=== PATIENT | female | born 1995 | race Caucasian/White ===

== ENCOUNTER → 2017-09-24 16:45 | Outpatient (REF) | payer MEDICAID, SELFPAY ==
[2017-09-24 18:14] LABS: Free T4 (Free Thyroxine) 1.02 ng/dl (0.76-1.46); Thyroid Stimulating Hormone 1.72 uIU/ml (0.358-3.740)
== END ==
LOC: LAB 16:45
PROVIDERS: Visit Provider Nurse Practitioner Family
DX: R53.83 Other fatigue (principal)
CPT/HCPCS: 84439; 84443

== ENCOUNTER 2017-10-09 05:29 | Emergency (ER) | payer MEDICAID, SELFPAY ==
[2017-10-09 05:38] VITALS: BP 128/70; PULSE 110; RESP 20; TEMP 37; O2SAT 98; BMI 35.0
--- NOTE | 2017-10-09 05:59 | HMH.EDBACK ---
ED Disposition Clinical Impression: Renal colic on left side Disposition: Home, Self-Care Condition on Discharge: Good Instructions: DI for Kidney Stones Additional Instructions: fluids and see pcp next week for follow up Referrals: Aman Tapia APRN [Primary Care Provider] - - Critical Care Critical Care Time: No Attestation: On 10/09/17, the high probability of a clinically significant, sudden or life threatening deterioration of the following system(s) required my full and direct attention, intervention and personal management. The time I documented below is in addition to time spent performing reported procedures but includes the following listed in this critical care notation. Medical Decision Making - Medical Records Medical records reviewed: Yes: I reviewed the patient's medical records. Vital Signs: 10/09/17 05:38 Temperature 98.6 F Temperature Source Oral Pulse Rate [Right Brachial] 110 H Respiratory Rate 20 Blood Pressure [Right Arm] 128/70 Blood Pressure Mean [Right Arm] 89 02 Sat by Pulse Oximetry 98 Oxygen Delivery Method Room Air - Lab Data Lab results reviewed: Yes: I reviewed the patient's lab results. Lab Results 10/09/17 06:00: Urine HCG, Qual Negative 10/09/17 06:03: Urine Color Yellow, Urine Appearance Cloudy, Urine pH 6.0, Ur Specific [place] 1.015, Urine Protein Trace, Urine Glucose (UA) Negative, Urine Ketones Negative, Urine Blood 3+, Urine Nitrate Negative, Urine Bilirubin Negative, Urine Urobilinogen 0.2, Ur Leukocyte Esterase Negative, Urine RBC 5-10, Urine WBC 3-5, Ur Squamous Epith Cells 10-20, Urine Bacteria 1+ 10/09/17 06:10: WBC 9.2, RBC 4.20, Hgb 11.5 L, Hct 36.4 L, MCV 86.7, MCH 27.4, MCHC 31.6 L, RDW 14.6, Plt Count 301, MPV 8.4, Neut % (Auto) 68.9, Lymph % (Auto) 22.8, [place] % (Auto) 6.0, Eos % (Auto) 1.9, Baso % (Auto) 0.4, Neut # (Auto) 6.4, Lymph # (Auto) 2.1, [place] # (Auto) 0.6, Eos # (Auto) 0.2, Baso # (Auto) 0.0 10/09/17 06:10: ESR 21 H 10/09/17 06:10: Sodium 138, Potassium 3.8, Chloride 105, Carbon Dioxide 24, Anion Gap 12.8, BUN 11, Creatinine 0.83, Estimated Creat Clear 151, Estimated GFR 86, Est GFR ( Amer) 104, Glucose 97, Calcium 8.6, Total Bilirubin 0.3, AST 10 L, ALT 23, Alkaline Phosphatase 71, C-Reactive Protein < 0.2, Total Protein 7.1, Albumin 3.6, Globulin 3.5 H, Albumin/Globulin Ratio 1.0 L Result diagrams: 10/09/17 06:10 10/09/17 06:10 Orders (Tests/Meds): ORDERS Category Date Time Status CT abdomen pelvis wo con Stat Cat Scan 10/09/17 06:03 Taken - CT Data CT Scan: Abdomen, Pelvis Time Received: 07:[address] Reviewed: Yes: I have viewed the radiologist's interpretation Preliminary Findings: Abnormal (2 mm stone ) - Aram Inquiry Pt receiving controlled substance: No [facility] History I have reviewed the patient's past medical history: Yes Medical History: Reports:: Seizures Amputation: No Fractures: No - *Social History Smoking Status: Current every day smoker Tobacco Type: cigarettes # Packs/Day (cigarettes): 1 Alcohol Intake: never Substance Use Type: denies use - Psychiatric History Expresses thoughts of harming self/others: None Suicide Plan Description: No Plan *Family Hx:: Hypertension, Diabetes, Heart Attack, Cancer ROS Obtained: Yes All systems reviewed & no additional complaints - Constitutional Constitutional: Denies fever(s) - Eyes Eyes: Denies change in vision - ENT Ears, Nose, Mouth, and Throat: Denies sore throat - Cardiovascular Cardiovascular: Denies chest pain at rest - Respiratory Respiratory: No cough - Gastrointestinal Gastrointestingal: Reports: nausea. Denies: abdominal pain - Genitourinary Female Genitourinary: Denies abnormal vaginal bleeding, Reports flank pain, Denies heavy periods - Musculoskeletal Musculoskeletal: Denies joint pain, Reports limited range of motion, Reports radiating pain into limb - Neurologic Neurologic: Denies seizure-like activity [facility]
--- NOTE | 2017-10-09 06:03 | CT_ITS ---
CT abdomen pelvis wo con CLINICAL INDICATION: Left flank pain ITS.REASON: flank pain ORDERING PHYSICIAN: Ananth Cornejo MD PATIENT AGE: 22 years COMPARISON: 03/03/2017 TECHNIQUE: Axial images obtained with sagittal and coronal reformats. PROCEDURE: Oral Contrast: None IV Contrast: None . FINDINGS: Lung bases are clear. Prior cholecystectomy without dilatation. The liver, spleen, adrenal glands, and pancreas has an unremarkable unenhanced appearance. There is mild left hydronephrosis and hydroureter. No renal calculi are evident. There is a 2 mm calcific density in the left pelvic region which was not present on previous exam consistent with a ureterovesical junction stone. Unremarkable appendix. No evidence of diverticulitis, intestinal obstruction, or free air. No abdominal or pelvic mass or abnormal fluid collection. Right ovary is prominent at 4.9 x 2.3 cm and may be better evaluated with ultrasound clinically warranted. No acute bony anomalies. IMPRESSION: 1. 2-mm left ureterovesical junction stone with mild left hydronephrosis and ureterectasis 2. Mildly prominent right ovary. 3. Otherwise negative CT abdomen and pelvis without contrast
--- NOTE | 2017-10-09 06:04 | ED_ITS ---
ED Disposition Clinical Impression: Renal colic on left side Disposition: Home, Self-Care Condition on Discharge: Good Instructions: DI for Kidney Stones Additional Instructions: fluids and see pcp next week for follow up Referrals: Aman Tapia APRN [Primary Care Provider] - - Critical Care Critical Care Time: No Attestation: On 10/09/17, the high probability of a clinically significant, sudden or life threatening deterioration of the following system(s) required my full and direct attention, intervention and personal management. The time I documented below is in addition to time spent performing reported procedures but includes the following listed in this critical care notation. Medical Decision Making - Medical Records Medical records reviewed: Yes: I reviewed the patient's medical records. Vital Signs: 10/09/17 05:38 Temperature 98.6 F Temperature Source Oral Pulse Rate [Right Brachial] 110 H Respiratory Rate 20 Blood Pressure [Right Arm] 128/70 Blood Pressure Mean [Right Arm] 89 02 Sat by Pulse Oximetry 98 Oxygen Delivery Method Room Air - Lab Data Lab results reviewed: Yes: I reviewed the patient's lab results. Lab Results 10/09/17 06:00: Urine HCG, Qual Negative 10/09/17 06:03: Urine Color Yellow, Urine Appearance Cloudy, Urine pH 6.0, Ur Specific [place] 1.015, Urine Protein Trace, Urine Glucose (UA) Negative, Urine Ketones Negative, Urine Blood 3+, Urine Nitrate Negative, Urine Bilirubin Negative, Urine Urobilinogen 0.2, Ur Leukocyte Esterase Negative, Urine RBC 5-10 , Urine WBC 3-5, Ur Squamous Epith Cells 10-20, Urine Bacteria 1+ 10/09/17 06:10: WBC 9.2, RBC 4.20, Hgb 11.5 L, Hct 36.4 L, MCV 86.7, MCH 27.4, MCHC 31.6 L, RDW 14.6, Plt Count 301, MPV 8.4, Neut % (Auto) 68.9, Lymph % (Auto ) 22.8, [place] % (Auto) 6.0, Eos % (Auto) 1.9, Baso % (Auto) 0.4, Neut # (Auto) 6.4, Lymph # (Auto) 2.1, [place] # (Auto) 0.6, Eos # (Auto) 0.2, Baso # (Auto) 0.0 10/09/17 06:10: ESR 21 H 10/09/17 06:10: Sodium 138, Potassium 3.8, Chloride 105, Carbon Dioxide 24, Anion Gap 12.8, BUN 11, Creatinine 0.83, Estimated Creat Clear 151, Estimated GFR 86, Est GFR ( Amer) 104, Glucose 97, Calcium 8.6, Total Bilirubin 0.3 , AST 10 L, ALT 23, Alkaline Phosphatase 71, C-Reactive Protein < 0.2, Total Protein 7.1, Albumin 3.6, Globulin 3.5 H, Albumin/Globulin Ratio 1.0 L Result diagrams: 10/09/17 06:10 10/09/17 06:10 Orders (Tests/Meds): ORDERS Category Date Time Status CT abdomen pelvis wo con Stat Cat Scan 10/09/17 06:03 Taken - CT Data CT Scan: Abdomen, Pelvis Time Received: 07:[address] Reviewed: Yes: I have viewed the radiologist's interpretation Preliminary Findings: Abnormal (2 mm stone ) - Aram Inquiry Pt receiving controlled substance: No [facility] History I have reviewed the patient's past medical history: Yes Medical History: Reports:: Seizures Amputation: No Fractures: No - *Social History Smoking Status: Current every day smoker Tobacco Type: cigarettes # Packs/Day (cigarettes): 1 Alcohol Intake: never Substance Use Type: denies use - Psychiatric History Expresses thoughts of harming self/others: None Suicide Plan Description: No Plan *Family Hx:: Hypertension, Diabetes, Heart Attack, Cancer ROS Obtained: Yes All systems reviewed & no additional complaints - Constitutional Constitutional: Denies fever(s) - Eyes Eyes: Denies change in vision - ENT
[2017-10-09 06:10] LABS: Appearance,Urine CLOUDY (Clear); Bilirubin,Urine Negative (Negative); Blood, Urine 3+ (Negative); Color,Urine YELLOW (Yellow); Glucose,Urine (UA) Negative (Negative); Ketones,Urine Negative (Negative); Leukocyte Esterase,Urine Negative (Negative); Microscopic, Urine URINE MICROSCOPIC (MICROSCOPIC); Nitrate,Urine Negative (Negative); Protein,Urine TRACE (Negative); Specific Gravity, Urine 1.015 (1.005-1.030); Urobilinogen,Urine 0.2 EU/dl (0.2)
[2017-10-09 06:12] LABS: Urine Pregnancy, HCG Qual. Negative (Negative)
[2017-10-09 06:23] LABS: Basophils % 0.4 % (0.1-2.0); Eosinophils # 0.2 K/mm3 (0.0-0.4); Eosinophils % 1.9 % (0.1-12.0); Hematocrit 36.4 % (37.0-47.0); Hemoglobin 11.5 g/dL (12.2-16.2); Lymphocytes # 2.1 K/mm3 (0.7-4.5); Lymphocytes % 22.8 K/mm3 (10-50); Mean Corpuscular HGB Conc 31.6 g/dL (31.8-35.4); Mean Corpuscular Hemoglobin 27.4 pg (27.0-31.2); Mean Corpuscular Volume 86.7 fl (81-99); Mean Platelet Volume 8.4 fl (7.4-10.4); Monocytes # 0.6 K/mm3 (0.1-1.0); Neutrophils # 6.4 K/mm3 (1.8-7.8); Neutrophils % 68.9 % (37.0-80.0); Platelet Count 301 K/mm3 (142-424); Red Cell Distribution Width 14.6 % (11.5-17.5); White Blood Count 9.2 K/mm3 (4.8-10.8)
[2017-10-09 06:32] LABS: Bacteria,Urine 1+ /lpf
[2017-10-09 06:34] LABS: Alanine Aminotransferase 23 U/L (12-78); Albumin Level 3.6 gm/dL (3.4-5.0); Alkaline Phosphatase 71 U/L (46-116); Anion Gap 12.8 mEq/L (5-15); Aspartate Amino Transferase 10 U/L (15-37); Bilirubin,Total 0.3 mg/dL (0.2-1.0); Blood Urea Nitrogen 11 mg/dL (7-18); Calcium 8.6 mg/dL (8.5-10.1); Carbon Dioxide 24 mmol/L (21.0-32.0); Chloride 105 mmol/L (98-107); Creatinine Clearance Estimated 151 mL/min (0-300); Creatinine,Serum 0.83 mg/dL (0.55-1.02); Estimated Glomerular Filt Rate 86 ml/min (>60); GFR (African American) 104 ML/MIN (>60); Globulin 3.5 gm/dl (1.3-3.2); Glucose 97 mg/dL (74-106); Potassium 3.8 mmoL/L (3.5-5.1); Sodium 138 mmol/L (136-145); Total Protein,Serum 7.1 gm/dL (6.4-8.2)
[2017-10-09 06:41] LABS: C-Reactive Protein < 0.2 mg/L (0.0-0.9)
[2017-10-09 07:10] LABS: Erythrocyte Sedimentation Rate 21 mm/hr (0-20)
[2017-10-09 08:14] VITALS: BP 121/78; PULSE 80; RESP 16; TEMP 36.7; O2SAT 987
== END 2017-10-09 08:14 | disposition home or self-care (01) ==
PROVIDERS: Emergency Provider Emergency Medicine; Family Provider Nurse Practitioner Family; PCP Nurse Practitioner Family
DX: N20.0 Calculus of kidney (principal); R56.9 Unspecified convulsions; F17.210 Nicotine dependence, cigarettes, uncomplicated
CPT/HCPCS: 74176; 80053; 81001; 81025; 85025; 85651; 86140; 99282

== ENCOUNTER 2017-10-11 13:30 | Emergency (ER) | payer MEDICAID, SELFPAY ==
[2017-10-11 13:32] VITALS: PULSE 100; RESP 14; TEMP 36.8; O2SAT 100; BMI 35.0
[2017-10-11 13:59] LABS: Microscopic, Urine URINE MICROSCOPIC (MICROSCOPIC)
[2017-10-11 14:00] LABS: Appearance,Urine SL CLOUDY (Clear); Bilirubin,Urine Negative (Negative); Blood, Urine 3+ (Negative); Color,Urine YELLOW (Yellow); Glucose,Urine (UA) Negative (Negative); Ketones,Urine Negative (Negative); Leukocyte Esterase,Urine 1+ (Negative); Nitrate,Urine Negative (Negative); Protein,Urine TRACE (Negative); Specific Gravity, Urine 1.025 (1.005-1.030); Urobilinogen,Urine 0.2 EU/dl (0.2)
[2017-10-11 14:01] LABS: Basophils % 0.4 % (0.1-2.0); Eosinophils # 0.2 K/mm3 (0.0-0.4); Eosinophils % 1.6 % (0.1-12.0); Hematocrit 40.2 % (37.0-47.0); Hemoglobin 12.6 g/dL (12.2-16.2); Lymphocytes # 2.5 K/mm3 (0.7-4.5); Mean Corpuscular HGB Conc 31.2 g/dL (31.8-35.4); Mean Corpuscular Hemoglobin 27.4 pg (27.0-31.2); Mean Corpuscular Volume 87.7 fl (81-99); Mean Platelet Volume 8.8 fl (7.4-10.4); Monocytes # 0.6 K/mm3 (0.1-1.0); Monocytes % 5.8 % (1.7-9.3); Neutrophils # 7.6 K/mm3 (1.8-7.8); Neutrophils % 69.2 % (37.0-80.0); Platelet Count 335 K/mm3 (142-424); Red Blood Count 4.59 M/mm3 (4.20-5.40); Red Cell Distribution Width 14.5 % (11.5-17.5); White Blood Count 10.9 K/mm3 (4.8-10.8)
[2017-10-11 14:13] LABS: Bacteria,Urine 2+ /lpf; WBC,Urine 20-50 #/hpf (0-3)
[2017-10-11 14:22] LABS: Alanine Aminotransferase 29 U/L (12-78); Alkaline Phosphatase 81 U/L (46-116); Anion Gap 13.9 mEq/L (5-15); Bilirubin,Total 0.3 mg/dL (0.2-1.0); Blood Urea Nitrogen 9 mg/dL (7-18); Carbon Dioxide 27 mmol/L (21.0-32.0); Chloride 104 mmol/L (98-107); Creatinine Clearance Estimated 185 mL/min (0-300); Creatinine,Serum 0.75 mg/dL (0.55-1.02); Estimated Glomerular Filt Rate 97 ml/min (>60); GFR (African American) 117 ML/MIN (>60); Globulin 4.2 gm/dl (1.3-3.2); Glucose 114 mg/dL (74-106); Sodium 141 mmol/L (136-145); Total Protein,Serum 8.2 gm/dL (6.4-8.2)
[2017-10-11 14:26] LABS: Aspartate Amino Transferase 21 U/L (15-37); Potassium 3.9 mmoL/L (3.5-5.1)
[2017-10-11 14:27] LABS: Urine Pregnancy, HCG Qual. Negative (Negative)
--- NOTE | 2017-10-11 15:09 | HMH.EDGENADL ---
ED Disposition Clinical Impression: Renal colic on left side UTI (urinary tract infection) Qualifiers: Urinary tract infection type: acute cystitis Hematuria presence: without hematuria Qualified Code(s): N30.00 - Acute cystitis without hematuria Disposition: Home, Self-Care Condition on Discharge: Good Instructions: DI for Urinary Tract Infection (UTI) Additional Instructions: fluids and see pcp this week Prescriptions: cephALEXin [Keflex 500mg Cap] 500 mg PO Q8H #30 cap Hydrocodone/Acetaminophen [[place] 7.5-325 Tablet] 1 tab PO Q6HP PRN #7 tab PRN Reason: Moderate To Severe Pain Referrals: Aman Tapia APRN [Primary Care Provider] - - Critical Care Critical Care Time: No Attestation: On 10/11/17, the high probability of a clinically significant, sudden or life threatening deterioration of the following system(s) required my full and direct attention, intervention and personal management. The time I documented below is in addition to time spent performing reported procedures but includes the following listed in this critical care notation. Medical Decision Making - Medical Records Medical records reviewed: Yes: I reviewed the patient's medical records. Vital Signs: 10/11/17 13:32 Temperature 98.3 F Temperature Source Oral Pulse Rate [Right Brachial] 100 H Respiratory Rate 14 02 Sat by Pulse Oximetry 100 Oxygen Delivery Method Room Air - Lab Data Lab results reviewed: Yes: I reviewed the patient's lab results. Lab Results 10/11/17 13:55: Urine Color Yellow, Urine Appearance Sl cloudy, Urine pH 6.0, Ur Specific [place] 1.025, Urine Protein Trace, Urine Glucose (UA) Negative, Urine Ketones Negative, Urine Blood 3+, Urine Nitrate Negative, Urine Bilirubin Negative, Urine Urobilinogen 0.2, Ur Leukocyte Esterase 1+ A, Urine RBC 5-10, Urine WBC 20-50, Ur Squamous Epith Cells 3-5, Urine Bacteria 2+ 10/11/17 13:55: WBC 10.9 H, RBC 4.59, Hgb 12.6, Hct 40.2, MCV 87.7, MCH 27.4, MCHC 31.2 L, RDW 14.5, Plt Count 335, MPV 8.8, Neut % (Auto) 69.2, Lymph % (Auto) 23.0, [place] % (Auto) 5.8, Eos % (Auto) 1.6, Baso % (Auto) 0.4, Neut # (Auto) 7.6, Lymph # (Auto) 2.5, [place] # (Auto) 0.6, Eos # (Auto) 0.2, Baso # (Auto) 0.0 10/11/17 13:55: Urine HCG, Qual Negative 10/11/17 13:55: Sodium 141, Potassium 3.9, Chloride 104, Carbon Dioxide 27, Anion Gap 13.9, BUN 9, Creatinine 0.75, Estimated Creat Clear 185, Estimated GFR 97, Est GFR ( Amer) 117, Glucose 114 H, Calcium 9.0, Total Bilirubin 0.3, AST 21 D, ALT 29 D, Alkaline Phosphatase 81, Total Protein 8.2, Albumin 4.0, Globulin 4.2 H, Albumin/Globulin Ratio 1.0 L Result diagrams: 10/11/17 13:55 10/11/17 13:55 Orders (Tests/Meds): ED MEDICATIONS Discontinued Medications Generic Name Dose Route Start Last Admin Trade Name [place] PRN Reason Stop Dose Admin Sodium Chloride 1,000 mls @ 999 mls/hr 10/11/17 14:00 10/11/17 15:41 Sod Chloride 0.9% 1000ml Bag IV 10/11/17 15:00 999 mls/hr .Q1H1M MARGUERITE Administration Ceftriaxone Sodium 1 gm/ 50 mls @ 100 mls/hr 10/11/17 15:29 10/11/17 15:40 Sodium Chloride IV 10/11/17 15:58 100 mls/hr ONCE ONE Administration ORDERS Category Date Time Status Urine Culture Stat Micro 10/11/17 13:55 Received - Aram Inquiry Pt receiving controlled substance: No General Adult HPI - General Chief complaint: PAIN Stated complaint: cannot urinate Time Seen by Provider: 10/11/17 15:10 Mode of Arrival: Ambulatory Source of Information: Patient, Significant Other, Medical Record Limitations: No Limitations Description of Symptoms (Recalled from ER Triage Doc. by RN): Pt advises she was seen Wednesday for pain in the left flank and told she had a kidney stone. pt advises today she has more pain and is having a hard time urinating - History of Present Illness HPI narrative: pt with recent dx of renal colic on lt and has hematuria and now diff urinating - no fever or vomiting Onset (ago): day(s)
--- NOTE | 2017-10-11 15:13 | ED_ITS ---
ED Disposition Clinical Impression: Renal colic on left side UTI (urinary tract infection) Qualifiers: Urinary tract infection type: acute cystitis Hematuria presence: without hematuria Qualified Code(s): N30.00 - Acute cystitis without hematuria Disposition: Home, Self-Care Condition on Discharge: Good Instructions: DI for Urinary Tract Infection (UTI) Additional Instructions: fluids and see pcp this week Prescriptions: cephALEXin [Keflex 500mg Cap] 500 mg PO Q8H #30 cap Hydrocodone/Acetaminophen [[place] 7.5-325 Tablet] 1 tab PO Q6HP PRN #7 tab PRN Reason: Moderate To Severe Pain Referrals: Aman Taipa APRN [Primary Care Provider] - - Critical Care Critical Care Time: No Attestation: On 10/11/17, the high probability of a clinically significant, sudden or life threatening deterioration of the following system(s) required my full and direct attention, intervention and personal management. The time I documented below is in addition to time spent performing reported procedures but includes the following listed in this critical care notation. Medical Decision Making - Medical Records Medical records reviewed: Yes: I reviewed the patient's medical records. Vital Signs: 10/11/17 13:32 Temperature 98.3 F Temperature Source Oral Pulse Rate [Right Brachial] 100 H Respiratory Rate 14 02 Sat by Pulse Oximetry 100 Oxygen Delivery Method Room Air - Lab Data Lab results reviewed: Yes: I reviewed the patient's lab results. Lab Results 10/11/17 13:55: Urine Color Yellow, Urine Appearance Sl cloudy, Urine pH 6.0, Ur Specific [place] 1.025, Urine Protein Trace, Urine Glucose (UA) Negative, Urine Ketones Negative, Urine Blood 3+, Urine Nitrate Negative, Urine Bilirubin Negative, Urine Urobilinogen 0.2, Ur Leukocyte Esterase 1+ A, Urine RBC 5-10, Urine WBC 20-50, Ur Squamous Epith Cells 3-5, Urine Bacteria 2+ 10/11/17 13:55: WBC 10.9 H, RBC 4.59, Hgb 12.6, Hct 40.2, MCV 87.7, MCH 27.4, MCHC 31.2 L, RDW 14.5, Plt Count 335, MPV 8.8, Neut % (Auto) 69.2, Lymph % (Auto ) 23.0, [place] % (Auto) 5.8, Eos % (Auto) 1.6, Baso % (Auto) 0.4, Neut # (Auto) 7.6, Lymph # (Auto) 2.5, [place] # (Auto) 0.6, Eos # (Auto) 0.2, Baso # (Auto) 0.0 10/11/17 13:55: Urine HCG, Qual Negative 10/11/17 13:55: Sodium 141, Potassium 3.9, Chloride 104, Carbon Dioxide 27, Anion Gap 13.9, BUN 9, Creatinine 0.75, Estimated Creat Clear 185, Estimated GFR 97, Est GFR ( Amer) 117, Glucose 114 H, Calcium 9.0, Total Bilirubin 0.3, AST 21 D, ALT 29 D, Alkaline Phosphatase 81, Total Protein 8.2, Albumin 4.0, Globulin 4.2 H, Albumin/Globulin Ratio 1.0 L Result diagrams: 10/11/17 13:55 10/11/17 13:55 Orders (Tests/Meds): ED MEDICATIONS Discontinued Medications Generic Name Dose Route Start Last Admin Trade Name [place] PRN Reason Stop Dose Admin Sodium Chloride 1,000 mls @ 999 mls/hr 10/11/17 14:00 10/11/17 15:41 Sod Chloride 0.9% 1000ml Bag IV 10/11/17 15:00 999 mls/hr .Q1H1M MARGUERITE Administration Ceftriaxone Sodium 1 gm/ 50 mls @ 100 mls/hr 10/11/17 15:29 10/11/17 15:40 Sodium Chloride IV 10/11/17 15:58 100 mls/hr ONCE ONE Administration ORDERS Category Date Time Status Urine Culture Stat Micro 10/11/17 13:55 Received - Aram Inquiry Pt receiving controlled substance: No General Adult HPI - General Chief complaint: PAIN Stated complain
[2017-10-11 17:15] VITALS: BP 124/88; PULSE 82; RESP 18; TEMP 36.6; O2SAT 98
== END 2017-10-11 17:17 | disposition home or self-care (01) ==
PROVIDERS: Emergency Provider Emergency Medicine; Family Provider Nurse Practitioner Family; PCP Nurse Practitioner Family
DX: N20.0 Calculus of kidney (principal); N23 Unspecified renal colic; N30.00 Acute cystitis without hematuria; F17.210 Nicotine dependence, cigarettes, uncomplicated; R56.9 Unspecified convulsions; Z88.6 Allergy status to analgesic agent
CPT/HCPCS: 80053; 81001; 81025; 85025; 87086; 96365; 99283

== ENCOUNTER 2017-10-16 10:53 | Emergency (ER) | payer MEDICAID, SELFPAY ==
[2017-10-16 11:08] VITALS: BP 142/82; PULSE 84; RESP 16; TEMP 36.9; O2SAT 98; BMI 36.2
--- NOTE | 2017-10-16 11:16 | HMH.EDABDPAI ---
ED Disposition Clinical Impression: Kidney stone on left side, Renal colic on left side Disposition: Home, Self-Care Condition on Discharge: Good Additional Instructions: Drink Lots of fluids and take medicine as directed. Return to the ED or followup with PCP as needed. Prescriptions: Ondansetron HCl [Zofran 4mg Tab] 4 mg PO Q6H 10 Days #40 tab Oxycodone HCl/Acetaminophen [Percocet 5/325mg tablet] 1 tab PO Q4H PRN 3 Days #18 tab PRN Reason: Severe Pain Oxycodone HCl/Acetaminophen [Percocet 5/325mg tablet] 1 tab PO Q4H PRN #18 tablet PRN Reason: Severe Pain Time of Disposition: 13:23 - Critical Care Critical Care Time: No Attestation: On , the high probability of a clinically significant, sudden or life threatening deterioration of the following system(s) required my full and direct attention, intervention and personal management. The time I documented below is in addition to time spent performing reported procedures but includes the following listed in this critical care notation. Medical Decision Making - Medical Records Medical records reviewed: Yes: I reviewed the patient's medical records. Vital Signs: 10/16/17 11:08 Temperature 98.4 F Temperature Source Oral Pulse Rate [Left Radial] 84 Respiratory Rate 16 Blood Pressure [Right Arm] 142/82 Blood Pressure Mean [Right Arm] 102 Blood Pressure Source [Right Arm] Automatic Cuff Blood Pressure Position [Right Arm] Sitting 02 Sat by Pulse Oximetry 98 Oxygen Delivery Method Room Air - Lab Data Lab results reviewed: Yes: I reviewed the patient's lab results. Lab Results 10/16/17 12:20: Urine Color Yellow, Urine Appearance Cloudy, Urine pH 8.5, Ur Specific [place] 1.025, Urine Protein Trace, Urine Glucose (UA) Negative, Urine Ketones Negative, Urine Blood 2+, Urine Nitrate Negative, Urine Bilirubin Negative, Urine Urobilinogen 0.2, Ur Leukocyte Esterase 1+ A, Urine RBC 10-20, Urine WBC 5-10, Ur Squamous Epith Cells Tntc, Urine Bacteria 3+ 10/16/17 12:20: WBC 11.1 H, RBC 4.52, Hgb 12.0 L, Hct 39.6, MCV 87.7, MCH 26.6 L, MCHC 30.3 L, RDW 14.6, Plt Count 303, MPV 9.1, Neut % (Auto) 78.7, Lymph % (Auto) 15.6, [place] % (Auto) 4.5, Eos % (Auto) 0.9, Baso % (Auto) 0.3, Neut # (Auto) 8.7 H, Lymph # (Auto) 1.7, [place] # (Auto) 0.5, Eos # (Auto) 0.1, Baso # (Auto) 0.0 10/16/17 12:20: Sodium 139, Potassium 4.2, Chloride 104, Carbon Dioxide 27, Anion Gap 12.2, BUN 13, Creatinine 0.96, Estimated Creat Clear 130, Estimated GFR 73, Est GFR ( Amer) 88, Glucose 111 H, Calcium 9.6, Total Bilirubin 0.4, AST 12 L, ALT 27, Alkaline Phosphatase 76, Total Protein 7.9, Albumin 4.0, Globulin 3.9 H, Albumin/Globulin Ratio 1.0 L 10/16/17 12:20: Lactic Acid 0.9 Result diagrams: 10/16/17 12:20 10/16/17 12:20 Orders (Tests/Meds): ED MEDICATIONS Discontinued Medications Generic Name Dose Route Start Last Admin Trade Name Freq PRN Reason Stop Dose Admin Hydromorphone HCl 1 mg 10/16/17 11:30 10/16/17 12:35 Dilaudid 4mg/Ml Syringe IM 10/16/17 11:31 Not Given ONCE ONE Hydromorphone HCl 1 mg 10/16/17 12:33 10/16/17 12:35 Dilaudid 4mg/Ml Syringe IV 10/16/17 12:34 1 mg ONCE ONE Administration Sodium Chloride 1,000 mls @ 999 mls/hr 10/16/17 11:45 10/16/17 12:38 Sod Chloride 0.9% 1000ml Bag IV 10/16/17 12:45 999 mls/hr .Q1H1M MARGUERITE Administration Ondansetron HCl 4 mg 10/16/17 11:30 10/16/17 12:32 Zofran 4mg/2ml Vial IM 10/16/17 11:31 4 mg ONCE ONE Administration ORDERS Category Date Time Status CT abdomen pelvis wo con Stat Cat Scan 10/16/17 11:30 Taken Blood Culture Stat Micro 10/16/17 12:20 Ordered Urine Culture Stat Micro 10/16/17 12:20 Received - CT Data CT Scan: Abdomen, Pelvis Time Received: 13:[address] Reviewed: Yes: I have reviewed the patient's CT results, I have viewed the radiologist's interpretation Findings Narrative: 2 to 3 mm stone in distal left ureter has not moved - Aram Inquiry
--- NOTE | 2017-10-16 11:21 | ED_ITS ---
ED Disposition Clinical Impression: Kidney stone on left side, Renal colic on left side Disposition: Home, Self-Care Condition on Discharge: Good Additional Instructions: Drink Lots of fluids and take medicine as directed. Return to the ED or followup with PCP as needed. Prescriptions: Ondansetron HCl [Zofran 4mg Tab] 4 mg PO Q6H 10 Days #40 tab Oxycodone HCl/Acetaminophen [Percocet 5/325mg tablet] 1 tab PO Q4H PRN 3 Days #18 tab PRN Reason: Severe Pain Oxycodone HCl/Acetaminophen [Percocet 5/325mg tablet] 1 tab PO Q4H PRN #18 tablet PRN Reason: Severe Pain Time of Disposition: 13:23 - Critical Care Critical Care Time: No Attestation: On , the high probability of a clinically significant, sudden or life threatening deterioration of the following system(s) required my full and direct attention, intervention and personal management. The time I documented below is in addition to time spent performing reported procedures but includes the following listed in this critical care notation. Medical Decision Making - Medical Records Medical records reviewed: Yes: I reviewed the patient's medical records. Vital Signs: 10/16/17 11:08 Temperature 98.4 F Temperature Source Oral Pulse Rate [Left Radial] 84 Respiratory Rate 16 Blood Pressure [Right Arm] 142/82 Blood Pressure Mean [Right Arm] 102 Blood Pressure Source [Right Arm] Automatic Cuff Blood Pressure Position [Right Arm] Sitting 02 Sat by Pulse Oximetry 98 Oxygen Delivery Method Room Air - Lab Data Lab results reviewed: Yes: I reviewed the patient's lab results. Lab Results 10/16/17 12:20: Urine Color Yellow, Urine Appearance Cloudy, Urine pH 8.5, Ur Specific [place] 1.025, Urine Protein Trace, Urine Glucose (UA) Negative, Urine Ketones Negative, Urine Blood 2+, Urine Nitrate Negative, Urine Bilirubin Negative, Urine Urobilinogen 0.2, Ur Leukocyte Esterase 1+ A, Urine RBC 10-20, Urine WBC 5-10, Ur Squamous Epith Cells Tntc, Urine Bacteria 3+ 10/16/17 12:20: WBC 11.1 H, RBC 4.52, Hgb 12.0 L, Hct 39.6, MCV 87.7, MCH 26.6 L , MCHC 30.3 L, RDW 14.6, Plt Count 303, MPV 9.1, Neut % (Auto) 78.7, Lymph % ( Auto) 15.6, [place] % (Auto) 4.5, Eos % (Auto) 0.9, Baso % (Auto) 0.3, Neut # (Auto ) 8.7 H, Lymph # (Auto) 1.7, [place] # (Auto) 0.5, Eos # (Auto) 0.1, Baso # (Auto) 0.0 10/16/17 12:20: Sodium 139, Potassium 4.2, Chloride 104, Carbon Dioxide 27, Anion Gap 12.2, BUN 13, Creatinine 0.96, Estimated Creat Clear 130, Estimated GFR 73, Est GFR ( Amer) 88, Glucose 111 H, Calcium 9.6, Total Bilirubin 0.4, AST 12 L, ALT 27, Alkaline Phosphatase 76, Total Protein 7.9, Albumin 4.0, Globulin 3.9 H, Albumin/Globulin Ratio 1.0 L 10/16/17 12:20: Lactic Acid 0.9 Result diagrams: 10/16/17 12:20 10/16/17 12:20 Orders (Tests/Meds): ED MEDICATIONS Discontinued Medications Generic Name Dose Route Start Last Admin Trade Name Freq PRN Reason Stop Dose Admin Hydromorphone HCl 1 mg 10/16/17 11:30 10/16/17 12:35 Dilaudid 4mg/Ml Syringe IM 10/16/17 11:31 Not Given ONCE ONE Hydromorphone HCl 1 mg 10/16/17 12:33 10/16/17 12:35 Dilaudid 4mg/Ml Syringe IV 10/16/17 12:34 1 mg ONCE ONE Administration Sodium Chloride 1,000 mls @ 999 mls/hr 10/16/17 11:45 10/16/17 12:38 Sod Chloride 0.9% 1000ml Bag IV 10/16/17 12:45 999 mls/hr .Q1H1M MARGUERITE Administration Ondansetron HCl 4 mg 10/16/17 11:30 0
--- NOTE | 2017-10-16 11:30 | CT_ITS ---
CT abdomen pelvis wo con COMPARISON: CT scan abdomen pelvis 10/09/2017 HISTORY: Left sided abdominal pain, known left distal ureteral calculus on most recent CT exam still having pain. TECHNIQUE: Multiaxial scans obtained from the hemidiaphragms the pelvic floor and were performed without IV or oral contrast. Sagittal and coronal reformats were evaluated as well. FINDINGS: The lower lung mc are clear. The liver spleen stomach and pancreas appear normal. There has been a previous cholecystectomy. The adrenal glands are normal. Again noted is mild hydronephrosis left kidney and mild hydroureter down to just above the UV junction where there is a oval 3 to 4 mm calculus basically unchanged in location from the previous exam. The ureter may be 1 mm more dilated on today's exam than the previous exam. Uterus and urinary bladder are normal. IMPRESSION: Persistent left-sided distal ureteral calculus but causing only mild obstructive uropathy of the left kidney
[2017-10-16 12:23] LABS: Microscopic, Urine URINE MICROSCOPIC (MICROSCOPIC)
[2017-10-16 12:24] LABS: Appearance,Urine CLOUDY (Clear); Bilirubin,Urine Negative (Negative); Blood, Urine 2+ (Negative); Color,Urine YELLOW (Yellow); Glucose,Urine (UA) Negative (Negative); Ketones,Urine Negative (Negative); Leukocyte Esterase,Urine 1+ (Negative); Nitrate,Urine Negative (Negative); PH,Urine 8.5 (5.0-8.5); Protein,Urine TRACE (Negative); Specific Gravity, Urine 1.025 (1.005-1.030); Urobilinogen,Urine 0.2 EU/dl (0.2)
[2017-10-16 12:33] LABS: Basophils % 0.3 % (0.1-2.0); Eosinophils # 0.1 K/mm3 (0.0-0.4); Eosinophils % 0.9 % (0.1-12.0); Hematocrit 39.6 % (37.0-47.0); Lymphocytes # 1.7 K/mm3 (0.7-4.5); Lymphocytes % 15.6 K/mm3 (10-50); Mean Corpuscular HGB Conc 30.3 g/dL (31.8-35.4); Mean Corpuscular Hemoglobin 26.6 pg (27.0-31.2); Mean Corpuscular Volume 87.7 fl (81-99); Mean Platelet Volume 9.1 fl (7.4-10.4); Monocytes # 0.5 K/mm3 (0.1-1.0); Monocytes % 4.5 % (1.7-9.3); Neutrophils # 8.7 K/mm3 (1.8-7.8); Neutrophils % 78.7 % (37.0-80.0); Platelet Count 303 K/mm3 (142-424); Red Blood Count 4.52 M/mm3 (4.20-5.40); Red Cell Distribution Width 14.6 % (11.5-17.5); White Blood Count 11.1 K/mm3 (4.8-10.8)
[2017-10-16 12:35] LABS: Bacteria,Urine 3+ /lpf; Squamous Epithelial Cell,Urine TNTC #/hpf (0-5)
[2017-10-16 12:49] LABS: Alanine Aminotransferase 27 U/L (12-78); Alkaline Phosphatase 76 U/L (46-116); Anion Gap 12.2 mEq/L (5-15); Aspartate Amino Transferase 12 U/L (15-37); Bilirubin,Total 0.4 mg/dL (0.2-1.0); Blood Urea Nitrogen 13 mg/dL (7-18); Calcium 9.6 mg/dL (8.5-10.1); Carbon Dioxide 27 mmol/L (21.0-32.0); Chloride 104 mmol/L (98-107); Creatinine Clearance Estimated 130 mL/min (0-300); Creatinine,Serum 0.96 mg/dL (0.55-1.02); Estimated Glomerular Filt Rate 73 ml/min (>60); GFR (African American) 88 ML/MIN (>60); Globulin 3.9 gm/dl (1.3-3.2); Glucose 111 mg/dL (74-106); Potassium 4.2 mmoL/L (3.5-5.1); Sodium 139 mmol/L (136-145); Total Protein,Serum 7.9 gm/dL (6.4-8.2)
[2017-10-16 12:51] LABS: Lactic Acid 0.9 mmol/L (0.4-2.0)
[2017-10-16 13:40] VITALS: BP 112/70; PULSE 65; RESP 16; TEMP 36.9; O2SAT 98
== END 2017-10-16 13:48 | disposition home or self-care (01) ==
PROVIDERS: Emergency Provider General Practice; Family Provider Nurse Practitioner Family; PCP Nurse Practitioner Family
DX: N20.1 Calculus of ureter (principal); Z87.442 Personal history of urinary calculi; Z72.0 Tobacco use
CPT/HCPCS: 74176; 80053; 81001; 83605; 85025; 87040; 87086; 96365; 96367; 96375; 99282; J2405

== ENCOUNTER 2017-10-20 09:53 | Emergency (ER) | payer MEDICAID, SELFPAY ==
--- NOTE | 2017-10-20 10:16 | PC.NURSE ---
Triage nurse came to get me due to pt's degree of pain, 06/22. Hx of kidney stone. First diagnosed 10/09. Has still not passed it. Has since seen PCP, Aman and returned to ER /. Reports appt w/ urology not until November. Having difficulty urinating as of last night not due to pain but very little is coming out . Allergy toradol. Discussed [facility] guidelines and what we can offer pt. Pt agreeable to transfer to ER for further evaluation, management of pain and possibly urology consult. Report called to Wendy [employer]. Attempted to call report to ER MD, Dr. Zavaleta, but not available. Nurse will have him call if he wants report directly from me.
[2017-10-20 10:17] VITALS: BP 140/80; PULSE 115; RESP 22; TEMP 36.9; O2SAT 99; BMI 34.5
--- NOTE | 2017-10-20 10:23 | PC.NURSE ---
Pt being sent to ER for further treatment of known kidney stone.
[2017-10-20 10:30] VITALS: BP 123/74; PULSE 99; RESP 16; TEMP 37.2; O2SAT 99; BMI 34.5
--- NOTE | 2017-10-20 10:55 | HMH.EDGENADL ---
ED Disposition Clinical Impression: Renal colic on left side Disposition: Home, Self-Care Condition on Discharge: Good Instructions: DI for Kidney Stones Additional Instructions: Please follow-up with Dr. Yoni Bean at 1 PM today, at the [place] office location. Referrals: Aman Tapia APRN [Primary Care Provider] - Solis Bean [Referring] - Time of Disposition: 10:56 - Critical Care Critical Care Time: No Attestation: On 10/20/17, the high probability of a clinically significant, sudden or life threatening deterioration of the following system(s) required my full and direct attention, intervention and personal management. The time I documented below is in addition to time spent performing reported procedures but includes the following listed in this critical care notation. Medical Decision Making - Medical Records Medical records reviewed: Yes: I reviewed the patient's medical records. Vital Signs: 10/20/17 10:17 10/20/17 10:30 Temperature 98.4 F 99 F Temperature Source Temporal Artery Scan Oral Pulse Rate [Left Brachial] 115 H 99 H Respiratory Rate 22 16 Blood Pressure [Left Arm] 140/80 123/74 Blood Pressure Mean [Left Arm] 100 90 Blood Pressure Source [Left Arm] Automatic Cuff Automatic Cuff Blood Pressure Position [Left Arm] Sitting Sitting 02 Sat by Pulse Oximetry 99 99 Oxygen Delivery Method Room Air Room Air Orders (Tests/Meds): ED MEDICATIONS Discontinued Medications Generic Name Dose Route Start Last Admin Trade Name Freq PRN Reason Stop Dose Admin Oxycodone/Acetaminophen 1 each 10/20/17 10:58 10/20/17 11:07 Percocet 10mg/325mg Tablet PO 10/20/17 10:59 1 each ONCE ONE Administration - Aram Inquiry Pt receiving controlled substance: No Aram was queried for this patient: Yes ([id number]) Reference #:: [id number] Risks and benefits of using a controlled substance: were discussed with pt by me - Reevaluation(s) Time: 11:10 Reevaluation #1: Patient scheduled Dr. Yoni Bean in the [place] at 1 PM today. No narcotic prescription dispensed. Patient instructed to drink plenty of fluids. A copy of patient's most recent CT scan was faxed to the urologist office, and an additional copy was given to patient to take in person. General Adult HPI - General Chief complaint: PAIN Stated complaint: Possible kidney stones Mode of Arrival: Family Vehicle Limitations: No Limitations - History of Present Illness HPI narrative: Patient is a 22-year-old lady with a left flank pain, seen multiple times in the emergency room over the past 2 weeks, and diagnosed with a left UPJ calculus. She had 2 CAT scans, one on 10/09 and the other one on 10/16, has been prescribed narcotics, been seen by PCP (Aman Tapia) scheduled her to follow-up with urology, however such appointment is not until November. Patient is here with persistent pain, she is out of her Percocet prescribed by Dr. Castanon on 10/16. MD complaint: left flank pain Onset (ago): week(s) - Related Data Home Medications Medication Instructions Recorded Confirmed ibuprofen 600 mg tablet 600 mg PO Q6RT PRN 09/21/17 10/16/17 Naproxen 500 mg PO BID 10/16/17 10/16/17 cephALEXin [Keflex 500mg Cap] 500 mg PO Q8H 10/16/17 10/16/17 Previous Rx's Medication Instructions Recorded Ondansetron HCl [Zofran 4mg Tab] 4 mg PO Q6H 10 Days #40 tab 10/16/17 Oxycodone HCl/Acetaminophen 1 tab PO Q4H PRN #18 tablet 10/16/17 [Percocet 5/325mg tablet] Oxycodone HCl/Acetaminophen 1 tab PO Q4H PRN 3 Days #18 tab 10/16/17 [Percocet 5/325mg tablet] Allergies Allergy/AdvReac Type Severity Reaction Status Date / Time ketorolac [From TORADOL] Allergy Mild Verified 10/13/17 13:10 tramadol [TRAMADOL] Allergy Mild Verified 10/13/17 13:10 diphenhydramine Allergy Unknown I-HIVES Verified 10/13/17 13:10 [From BENADRYL] [facility] History I have reviewed the patient's past medical history: Yes Medi
--- NOTE | 2017-10-20 10:58 | ED_ITS ---
ED Disposition Clinical Impression: Renal colic on left side Disposition: Home, Self-Care Condition on Discharge: Good Instructions: DI for Kidney Stones Additional Instructions: Please follow-up with Dr. Yoni Bean at 1 PM today, at the [place] office location. Referrals: Aman Tapia APRN [Primary Care Provider] - Solis Bean [Referring] - Time of Disposition: 10:56 - Critical Care Critical Care Time: No Attestation: On 10/20/17, the high probability of a clinically significant, sudden or life threatening deterioration of the following system(s) required my full and direct attention, intervention and personal management. The time I documented below is in addition to time spent performing reported procedures but includes the following listed in this critical care notation. Medical Decision Making - Medical Records Medical records reviewed: Yes: I reviewed the patient's medical records. Vital Signs: 10/20/17 10:17 10/20/17 10:30 Temperature 98.4 F 99 F Temperature Source Temporal Artery Scan Oral Pulse Rate [Left Brachial] 115 H 99 H Respiratory Rate 22 16 Blood Pressure [Left Arm] 140/80 123/74 Blood Pressure Mean [Left Arm] 100 90 Blood Pressure Source [Left Arm] Automatic Cuff Automatic Cuff Blood Pressure Position [Left Arm] Sitting Sitting 02 Sat by Pulse Oximetry 99 99 Oxygen Delivery Method Room Air Room Air Orders (Tests/Meds): ED MEDICATIONS Discontinued Medications Generic Name Dose Route Start Last Admin Trade Name Freq PRN Reason Stop Dose Admin Oxycodone/Acetaminophen 1 each 10/20/17 10:58 10/20/17 11:07 Percocet 10mg/325mg Tablet PO 10/20/17 10:59 1 each ONCE ONE Administration - Aram Inquiry Pt receiving controlled substance: No Aram was queried for this patient: Yes ([id number]) Reference #:: [id number] Risks and benefits of using a controlled substance: were discussed with pt by me - Reevaluation(s) Time: 11:10 Reevaluation #1: Patient scheduled Dr. Yoni Bean in the [place] at 1 PM today. No narcotic prescription dispensed. Patient instructed to drink plenty of fluids. A copy of patient's most recent CT scan was faxed to the urologist office, and an additional copy was given to patient to take in person. General Adult HPI - General Chief complaint: PAIN Stated complaint: Possible kidney stones Mode of Arrival: Family Vehicle Limitations: No Limitations - History of Present Illness HPI narrative: Patient is a 22-year-old lady with a left flank pain, seen multiple times in the emergency room over the past 2 weeks, and diagnosed with a left UPJ calculus. She had 2 CAT scans, one on 10/09 and the other one on 10/16, has been prescribed narcotics, been seen by PCP (Aman Tapia) scheduled her to follow- up with urology, however such appointment is not until November. Patient is here with persistent pain, she is out of her Percocet prescribed by Dr. Castanon on 10/16. MD complaint: left flank pain Onset (ago): week(s) - Related Data Home Medications Medication Instructions Recorded Confirmed ibuprofen 600 mg tablet 600 mg PO Q6RT PRN 09/21/17 10/16/17 Naproxen 500 mg PO BID 10/16/17 10/16/17 cephALEXin [Keflex 500mg Cap] 500 mg PO Q8H 10/16/17 10/16/17 Previous Rx's Medication Instructions Recorded
--- NOTE | 2017-10-20 10:58 | PC.NURSE ---
1050- spoke with [employer], pt will see today at 1300 at [facility] urology.
[2017-10-20 11:08] VITALS: BP 123/90; PULSE 87; RESP 18; TEMP 37.1; O2SAT 99
== END 2017-10-20 11:30 | disposition home or self-care (01) ==
LOC: UTC 09:56 → ER 10:22
PROVIDERS: Emergency Provider Nurse Practitioner Family; Family Provider Nurse Practitioner Family; PCP Nurse Practitioner Family
DX: N20.0 Calculus of kidney (principal); F17.210 Nicotine dependence, cigarettes, uncomplicated; Z88.6 Allergy status to analgesic agent
CPT/HCPCS: 99282

== ENCOUNTER 2017-10-29 14:25 | Emergency (ER) | payer MEDICAID, SELFPAY ==
[2017-10-29 14:31] VITALS: BP 132/80; PULSE 65; RESP 18; TEMP 36.8; O2SAT 98; BMI 35.6
--- NOTE | 2017-10-29 14:37 | HMH.EDGENADL ---
ED Disposition Clinical Impression: Renal colic on left side Disposition: Home, Self-Care Condition on Discharge: Fair Instructions: DI for Chronic Pain -- Adult Prescriptions: Oxycodone HCl/Acetaminophen [Percocet 7.5/325mg tablet] 1 tab PO Q6H PRN 3 Days #12 tab PRN Reason: Severe Pain Tamsulosin HCl [Flomax 0.4mg capsule] 0.4 mg PO DAILY 30 Days #30 cap.er.24h Referrals: Aman Tapia APRN [Primary Care Provider] - Time of Disposition: 17:12 - Critical Care Critical Care Time: No Attestation: On , the high probability of a clinically significant, sudden or life threatening deterioration of the following system(s) required my full and direct attention, intervention and personal management. The time I documented below is in addition to time spent performing reported procedures but includes the following listed in this critical care notation. Medical Decision Making - Medical Records Medical records reviewed: Yes: I reviewed the patient's medical records. Vital Signs: 10/29/17 14:31 Temperature 98.3 F Temperature Source Oral Pulse Rate [Right Brachial] 65 Respiratory Rate 18 Blood Pressure [Right Arm] 132/80 Blood Pressure Mean [Right Arm] 97 Blood Pressure Source [Right Arm] Automatic Cuff 02 Sat by Pulse Oximetry 98 Oxygen Delivery Method Room Air - Lab Data Lab results reviewed: Yes: I reviewed the patient's lab results. Lab Results 10/29/17 14:45: Urine Color Red, Urine Appearance Cloudy, Urine pH 8.5, Ur Specific [place] 1.020, Urine Protein 2+, Urine Glucose (UA) Negative, Urine Ketones Negative, Urine Blood 3+, Urine Nitrate Negative, Urine Bilirubin Negative, Urine Urobilinogen 0.2, Ur Leukocyte Esterase 1+ A, Urine RBC Tntc, Urine WBC 10-20, Ur Squamous Epith Cells 5-10, Urine Bacteria 2+ 10/29/17 14:45: WBC 9.7, RBC 4.35, Hgb 12.0 L, Hct 38.5, MCV 88.5, MCH 27.6, MCHC 31.2 L, RDW 14.3, Plt Count 322, MPV 9.4, Neut % (Auto) 76.8, Lymph % (Auto) 14.9, [place] % (Auto) 5.3, Eos % (Auto) 2.8, Baso % (Auto) 0.3, Neut # (Auto) 7.4, Lymph # (Auto) 1.4, [place] # (Auto) 0.5, Eos # (Auto) 0.3, Baso # (Auto) 0.0 10/29/17 14:45: Urine HCG, Qual Negative 10/29/17 14:45: Sodium 140, Potassium 4.1, Chloride 106, Carbon Dioxide 27, Anion Gap 11.1, BUN 7, Creatinine 0.69, Estimated Creat Clear 179, Estimated GFR 106, Est GFR ( Amer) 129, Glucose 107 H, Calcium 8.8, Total Bilirubin 0.2, AST 16, ALT 24, Alkaline Phosphatase 82, Total Protein 7.8, Albumin 3.9, Globulin 3.9 H, Albumin/Globulin Ratio 1.0 L, Lipase 72 L 10/29/17 14:45: Urine Opiates Screen Positive H, Ur Barbituates Screen Negative, Ur Phencyclidine Scrn Negative, Ur Amphetamines Screen Negative, U Methamphetamines Scrn Negative, U Benzodiazepines Scrn Negative, Urine Cocaine Screen Negative, U Marijuana (THC) Screen Negative Result diagrams: 10/29/17 14:45 10/29/17 14:45 Orders (Tests/Meds): ED MEDICATIONS Discontinued Medications Generic Name Dose Route Start Last Admin Trade Name [place] PRN Reason Stop Dose Admin Butorphanol Tartrate 1 mg 10/29/17 14:49 10/29/17 14:54 Stadol 1mg/1ml Vial IV 10/29/17 14:50 1 mg ONCE ONE Administration Sodium Chloride 1,000 mls @ 999 mls/hr 10/29/17 15:00 10/29/17 14:54 Sod Chlor 0.9% 1000ml Bag IV 10/29/17 16:00 999 mls/hr .Q1H1M MARGUERITE Administration Iopamidol 75 ml 10/29/17 15:57 10/29/17 15:58 [id number]; 75ml Vial IV 10/29/17 15:58 75 ml ONCE ONE Administration Ondansetron HCl 4 mg 10/29/17 14:49 10/29/17 14:54 Zofran 4mg/2ml Vial IV 10/29/17 14:50 4 mg ONCE ONE Administration Sodium Chloride 10 ml 10/29/17 15:57 10/29/17 15:58 Rad-Saline Flush 10ml Syringe IV 10/29/17 15:58 10 ml ONCE ONE Administration ORDERS Category Date Time Status Urine Culture Stat Micro 10/29/17 14:45 Received - CT Data Time Received: 17:[address] Reviewed: Yes: I have reviewed the patient's CT results, I have viewed the radiologist's interp
--- NOTE | 2017-10-29 14:39 | CT_ITS ---
CT abdomen pelvis w con CLINICAL INDICATION: Hematuria, recent stent placement, left ureteral stone follow-up ITS.REASON: HEMATURIA FOLLOWING STENT PLACEMENT ORDERING PHYSICIAN: Dontrell Castanon MD PATIENT AGE: 22 years COMPARISON: 10/16/2017 TECHNIQUE: Axial images obtained with sagittal and coronal reformats. PROCEDURE: Oral Contrast: None IV Contrast: 75 mL's of [id number] . FINDINGS: Lung bases are clear. The liver, spleen, adrenal glands, and pancreas are unremarkable. There has been a prior cholecystectomy. There is a left ureteral stent in place. The proximal aspect of the stent is in region of the renal pelvis and the distal aspect of the stent is curled in the urinary bladder. There is only minimal ectasia of the left renal pelvicalyceal system. There is a persistent hyperdensity along the lateral aspect of the distal aspect of the ureteral stent consistent with a residual stone or stone fragment which measures 3 mm. A small hyperdensity is also noted just superior to this region consistent with a stone fragment. No other significant anomalies are evident. No stones evident within the urinary bladder. Urinary bladder has an unremarkable appearance. There is a small cyst in the right ovary at 2 cm. No cul-de-sac fluid. No acute bony anomalies. Mild lumbar scoliosis convex right. IMPRESSION: Left ureteral stent has been placed. There are is a small stone or stone fragments noted along the lateral of the stent in the distal left ureter. There is only minimal ectasia of the left renal collecting system.
--- NOTE | 2017-10-29 14:47 | ED_ITS ---
ED Disposition Clinical Impression: Renal colic on left side Disposition: Home, Self-Care Condition on Discharge: Fair Instructions: DI for Chronic Pain -- Adult Prescriptions: Oxycodone HCl/Acetaminophen [Percocet 7.5/325mg tablet] 1 tab PO Q6H PRN 3 Days #12 tab PRN Reason: Severe Pain Tamsulosin HCl [Flomax 0.4mg capsule] 0.4 mg PO DAILY 30 Days #30 cap.er.24h Referrals: Aman Tapia APRN [Primary Care Provider] - Time of Disposition: 17:12 - Critical Care Critical Care Time: No Attestation: On , the high probability of a clinically significant, sudden or life threatening deterioration of the following system(s) required my full and direct attention, intervention and personal management. The time I documented below is in addition to time spent performing reported procedures but includes the following listed in this critical care notation. Medical Decision Making - Medical Records Medical records reviewed: Yes: I reviewed the patient's medical records. Vital Signs: 10/29/17 14:31 Temperature 98.3 F Temperature Source Oral Pulse Rate [Right Brachial] 65 Respiratory Rate 18 Blood Pressure [Right Arm] 132/80 Blood Pressure Mean [Right Arm] 97 Blood Pressure Source [Right Arm] Automatic Cuff 02 Sat by Pulse Oximetry 98 Oxygen Delivery Method Room Air - Lab Data Lab results reviewed: Yes: I reviewed the patient's lab results. Lab Results 10/29/17 14:45: Urine Color Red, Urine Appearance Cloudy, Urine pH 8.5, Ur Specific [place] 1.020, Urine Protein 2+, Urine Glucose (UA) Negative, Urine Ketones Negative, Urine Blood 3+, Urine Nitrate Negative, Urine Bilirubin Negative, Urine Urobilinogen 0.2, Ur Leukocyte Esterase 1+ A, Urine RBC Tntc, Urine WBC 10-20, Ur Squamous Epith Cells 5-10, Urine Bacteria 2+ 10/29/17 14:45: WBC 9.7, RBC 4.35, Hgb 12.0 L, Hct 38.5, MCV 88.5, MCH 27.6, MCHC 31.2 L, RDW 14.3, Plt Count 322, MPV 9.4, Neut % (Auto) 76.8, Lymph % (Auto ) 14.9, [place] % (Auto) 5.3, Eos % (Auto) 2.8, Baso % (Auto) 0.3, Neut # (Auto) 7.4, Lymph # (Auto) 1.4, [place] # (Auto) 0.5, Eos # (Auto) 0.3, Baso # (Auto) 0.0 10/29/17 14:45: Urine HCG, Qual Negative 10/29/17 14:45: Sodium 140, Potassium 4.1, Chloride 106, Carbon Dioxide 27, Anion Gap 11.1, BUN 7, Creatinine 0.69, Estimated Creat Clear 179, Estimated GFR 106, Est GFR ( Amer) 129, Glucose 107 H, Calcium 8.8, Total Bilirubin 0.2, AST 16, ALT 24, Alkaline Phosphatase 82, Total Protein 7.8, Albumin 3.9, Globulin 3.9 H, Albumin/Globulin Ratio 1.0 L, Lipase 72 L 10/29/17 14:45: Urine Opiates Screen Positive H, Ur Barbituates Screen Negative , Ur Phencyclidine Scrn Negative, Ur Amphetamines Screen Negative, U Methamphetamines Scrn Negative, U Benzodiazepines Scrn Negative, Urine Cocaine Screen Negative, U Marijuana (THC) Screen Negative Result diagrams: 10/29/17 14:45 10/29/17 14:45 Orders (Tests/Meds): ED MEDICATIONS Discontinued Medications Generic Name Dose Route Start Last Admin Trade Name [place] PRN Reason Stop Dose Admin Butorphanol Tartrate 1 mg 10/29/17 14:49 10/29/17 14:54 Stadol 1mg/1ml Vial IV 10/29/17 14:50 1 mg ONCE ONE Administration Sodium Chloride 1,000 mls @ 999 mls/hr 10/29/17 15:00 10/29/17 14:54 Sod Chlor 0.9% 1000ml Bag IV 10/29/17 16:00 999 mls/hr .Q1H1M MARGUERITE Administration Iopamidol 75 ml 10/29/17 15:57 10/29/17 15:58 [id number]; 75ml Vial IV 10/29/17 15:58 75 ml
[2017-10-29 14:52] LABS: Microscopic, Urine URINE MICROSCOPIC (MICROSCOPIC)
[2017-10-29 14:56] LABS: Basophils % 0.3 % (0.1-2.0); Eosinophils # 0.3 K/mm3 (0.0-0.4); Eosinophils % 2.8 % (0.1-12.0); Hematocrit 38.5 % (37.0-47.0); Lymphocytes # 1.4 K/mm3 (0.7-4.5); Lymphocytes % 14.9 K/mm3 (10-50); Mean Corpuscular HGB Conc 31.2 g/dL (31.8-35.4); Mean Corpuscular Hemoglobin 27.6 pg (27.0-31.2); Mean Corpuscular Volume 88.5 fl (81-99); Mean Platelet Volume 9.4 fl (7.4-10.4); Monocytes # 0.5 K/mm3 (0.1-1.0); Monocytes % 5.3 % (1.7-9.3); Neutrophils # 7.4 K/mm3 (1.8-7.8); Neutrophils % 76.8 % (37.0-80.0); Platelet Count 322 K/mm3 (142-424); Red Blood Count 4.35 M/mm3 (4.20-5.40); Red Cell Distribution Width 14.3 % (11.5-17.5); White Blood Count 9.7 K/mm3 (4.8-10.8)
[2017-10-29 15:00] LABS: Urine Pregnancy, HCG Qual. Negative (Negative)
[2017-10-29 15:02] LABS: Amphetamine/Metha Screen,Urine Negative ng/mL (<1000); Barbiturates Screen,Urine Negative ng/mL (<200); Benzodiazepines Screen,Urine Negative ng/mL (200); Cannabinoid Screen,Urine Negative ng/mL (<50); Cocaine Screen,Urine Negative ng/g (<300); Methadone Screen,Urine Negative ng/mL (<300); Opiate Screen,Urine Positive ng/mL (<300); Phencyclidine Screen,Urine Negative ng/mL (<25)
[2017-10-29 15:10] LABS: Appearance,Urine CLOUDY (Clear); Bilirubin,Urine Negative (Negative); Blood, Urine 3+ (Negative); Color,Urine RED (Yellow); Glucose,Urine (UA) Negative (Negative); Ketones,Urine Negative (Negative); Leukocyte Esterase,Urine 1+ (Negative); Nitrate,Urine Negative (Negative); PH,Urine 8.5 (5.0-8.5); Protein,Urine 2+ (Negative); Urobilinogen,Urine 0.2 EU/dl (0.2)
[2017-10-29 15:12] LABS: Alanine Aminotransferase 24 U/L (12-78); Albumin Level 3.9 gm/dL (3.4-5.0); Alkaline Phosphatase 82 U/L (46-116); Anion Gap 11.1 mEq/L (5-15); Bilirubin,Total 0.2 mg/dL (0.2-1.0); Blood Urea Nitrogen 7 mg/dL (7-18); Calcium 8.8 mg/dL (8.5-10.1); Carbon Dioxide 27 mmol/L (21.0-32.0); Chloride 106 mmol/L (98-107); Creatinine Clearance Estimated 179 mL/min (0-300); Creatinine,Serum 0.69 mg/dL (0.55-1.02); Estimated Glomerular Filt Rate 106 ml/min (>60); GFR (African American) 129 ML/MIN (>60); Globulin 3.9 gm/dl (1.3-3.2); Glucose 107 mg/dL (74-106); Lipase 72 u/L (73-393); Sodium 140 mmol/L (136-145); Total Protein,Serum 7.8 gm/dL (6.4-8.2)
[2017-10-29 15:14] LABS: Potassium 4.1 mmoL/L (3.5-5.1)
[2017-10-29 15:15] LABS: Aspartate Amino Transferase 16 U/L (15-37)
[2017-10-29 15:21] LABS: Bacteria,Urine 2+ /lpf; RBC,Urine TNTC #/hpf (0-3)
[2017-10-29 17:22] VITALS: BP 121/70; PULSE 70; RESP 20; TEMP 37.1; O2SAT 100
== END 2017-10-29 17:24 | disposition home or self-care (01) ==
PROVIDERS: Emergency Provider General Practice; Family Provider Nurse Practitioner Family; PCP Nurse Practitioner Family
DX: N23 Unspecified renal colic (principal); Z86.14 Personal history of Methicillin resistant Staphylococcus aureus infection; F17.210 Nicotine dependence, cigarettes, uncomplicated; Z88.6 Allergy status to analgesic agent
CPT/HCPCS: 74177; 80053; 80305; 81001; 81025; 83690; 85025; 87086; 96365; 96374; 96375; 99282; J0595; J2405; Q9967

== ENCOUNTER 2017-11-17 22:13 | Emergency (ER) | payer MEDICAID, SELFPAY ==
[2017-11-17 22:27] VITALS: BP 127/79; PULSE 95; RESP 14; TEMP 36.9; O2SAT 99; BMI 36.2
--- NOTE | 2017-11-17 22:52 | HMH.EDUROGF ---
ED Disposition Clinical Impression: Renal colic on left side UTI (urinary tract infection) Qualifiers: Urinary tract infection type: site unspecified Hematuria presence: without hematuria Qualified Code(s): N39.0 - Urinary tract infection, site not specified Disposition: Home, Self-Care Condition on Discharge: Good Instructions: DI for Urinary Tract Infection (UTI) Additional Instructions: see pcp for follow up Referrals: Aman Tapia APRN [Primary Care Provider] - - Critical Care Critical Care Time: No Attestation: On 11/17/17, the high probability of a clinically significant, sudden or life threatening deterioration of the following system(s) required my full and direct attention, intervention and personal management. The time I documented below is in addition to time spent performing reported procedures but includes the following listed in this critical care notation. Medical Decision Making - Medical Records Medical records reviewed: Yes: I reviewed the patient's medical records. Vital Signs: 11/17/17 22:27 Temperature 98.4 F Temperature Source Oral Pulse Rate [Left Radial] 95 H Respiratory Rate 14 Blood Pressure [Right Arm] 127/79 Blood Pressure Mean [Right Arm] 95 Blood Pressure Source [Right Arm] Automatic Cuff Blood Pressure Position [Right Arm] Sitting 02 Sat by Pulse Oximetry 99 Oxygen Delivery Method Room Air - Lab Data Lab results reviewed: Yes: I reviewed the patient's lab results. Lab Results 11/17/17 22:30: WBC 10.9 H, RBC 4.47, Hgb 12.3, Hct 40.7, MCV 91.0, MCH 27.5, MCHC 30.2 L, RDW 14.2, Plt Count 340, MPV 9.1, Neut % (Auto) 64.3, Lymph % (Auto) 27.2, [place] % (Auto) 5.3, Eos % (Auto) 2.8, Baso % (Auto) 0.4, Neut # (Auto) 7.0, Lymph # (Auto) 3.0, [place] # (Auto) 0.6, Eos # (Auto) 0.3, Baso # (Auto) 0.0 11/17/17 22:30: Sodium 136, Potassium 3.6, Chloride 103, Carbon Dioxide 24, Anion Gap 12.6, BUN 13, Creatinine 0.81, Estimated Creat Clear 154, Estimated GFR 88, Est GFR ( Amer) 107, Glucose 98 11/18/17 00:00: Urine Color Yellow, Urine Appearance Clear, Urine pH 6.0, Ur Specific [place] >= 1.030, Urine Protein 1+, Urine Glucose (UA) Negative, Urine Ketones 1+, Urine Blood 3+, Urine Nitrate Negative, Urine Bilirubin Negative, Urine Urobilinogen 0.2, Ur Leukocyte Esterase 1+ A, Urine RBC Tntc, Urine WBC 10-20, Ur Squamous Epith Cells Occasional, Urine Bacteria 1+, Urine Mucus 1+ 11/18/17 00:00: Urine HCG, Qual Negative Result diagrams: 11/17/17 22:30 11/17/17 22:30 Orders (Tests/Meds): ED MEDICATIONS Generic Name Dose Route Start Last Admin Trade Name Freq PRN Reason Stop Dose Admin Ceftriaxone Sodium 1 gm/ 50 mls @ 100 mls/hr 11/18/17 00:30 11/18/17 00:28 Sodium Chloride IV 12/02/17 00:29 100 mls/hr Q24H MARGUERITE Administration Protocol Discontinued Medications Generic Name Dose Route Start Last Admin Trade Name Freq PRN Reason Stop Dose Admin Sodium Chloride 1,000 mls @ 999 mls/hr 11/17/17 22:45 11/17/17 22:44 Sod Chlor 0.9% 1000ml Bag IV 11/17/17 23:45 999 mls/hr .Q1H1M MARGUERITE Administration ORDERS Category Date Time Status Urine Culture Stat Micro 11/18/17 00:00 Received - Aram Inquiry Pt receiving controlled substance: No Female Urogenital HPI - General Chief complaint: Abdominal Pain Stated complaint: mid back pain Time Seen by Provider: 11/17/17 22:52 Mode of Arrival: Ambulatory Source of Information: Patient, Medical Record Limitations: No Limitations Description of Symptoms (Recalled from ER Triage Doc. by RN): bilateral flank/ lower back pain, Hx of current renal stent for stones on left - History of Present Illness HPI Narrative: lt renal colic and has stent and is seeing urology and tonight with rt sided pain - no fever or vomiting MD Complaint: dysuria Onset (ago): hour(s) Radiation: R flank Severity: moderate Duration: intermittent Urinary Symptoms: flank pain : no - Related Data H
[2017-11-17 22:54] LABS: Basophils % 0.4 % (0.1-2.0); Eosinophils # 0.3 K/mm3 (0.0-0.4); Eosinophils % 2.8 % (0.1-12.0); Hematocrit 40.7 % (37.0-47.0); Hemoglobin 12.3 g/dL (12.2-16.2); Lymphocytes % 27.2 K/mm3 (10-50); Mean Corpuscular HGB Conc 30.2 g/dL (31.8-35.4); Mean Corpuscular Hemoglobin 27.5 pg (27.0-31.2); Mean Platelet Volume 9.1 fl (7.4-10.4); Monocytes # 0.6 K/mm3 (0.1-1.0); Monocytes % 5.3 % (1.7-9.3); Neutrophils % 64.3 % (37.0-80.0); Platelet Count 340 K/mm3 (142-424); Red Blood Count 4.47 M/mm3 (4.20-5.40); Red Cell Distribution Width 14.2 % (11.5-17.5); White Blood Count 10.9 K/mm3 (4.8-10.8)
--- NOTE | 2017-11-17 22:56 | ED_ITS ---
ED Disposition Clinical Impression: Renal colic on left side UTI (urinary tract infection) Qualifiers: Urinary tract infection type: site unspecified Hematuria presence: without hematuria Qualified Code(s): N39.0 - Urinary tract infection, site not specified Disposition: Home, Self-Care Condition on Discharge: Good Instructions: DI for Urinary Tract Infection (UTI) Additional Instructions: see pcp for follow up Referrals: Aman Tapia APRN [Primary Care Provider] - - Critical Care Critical Care Time: No Attestation: On 11/17/17, the high probability of a clinically significant, sudden or life threatening deterioration of the following system(s) required my full and direct attention, intervention and personal management. The time I documented below is in addition to time spent performing reported procedures but includes the following listed in this critical care notation. Medical Decision Making - Medical Records Medical records reviewed: Yes: I reviewed the patient's medical records. Vital Signs: 11/17/17 22:27 Temperature 98.4 F Temperature Source Oral Pulse Rate [Left Radial] 95 H Respiratory Rate 14 Blood Pressure [Right Arm] 127/79 Blood Pressure Mean [Right Arm] 95 Blood Pressure Source [Right Arm] Automatic Cuff Blood Pressure Position [Right Arm] Sitting 02 Sat by Pulse Oximetry 99 Oxygen Delivery Method Room Air - Lab Data Lab results reviewed: Yes: I reviewed the patient's lab results. Lab Results 11/17/17 22:30: WBC 10.9 H, RBC 4.47, Hgb 12.3, Hct 40.7, MCV 91.0, MCH 27.5, MCHC 30.2 L, RDW 14.2, Plt Count 340, MPV 9.1, Neut % (Auto) 64.3, Lymph % (Auto ) 27.2, [place] % (Auto) 5.3, Eos % (Auto) 2.8, Baso % (Auto) 0.4, Neut # (Auto) 7.0, Lymph # (Auto) 3.0, [place] # (Auto) 0.6, Eos # (Auto) 0.3, Baso # (Auto) 0.0 11/17/17 22:30: Sodium 136, Potassium 3.6, Chloride 103, Carbon Dioxide 24, Anion Gap 12.6, BUN 13, Creatinine 0.81, Estimated Creat Clear 154, Estimated GFR 88, Est GFR ( Amer) 107, Glucose 98 11/18/17 00:00: Urine Color Yellow, Urine Appearance Clear, Urine pH 6.0, Ur Specific [place] >= 1.030, Urine Protein 1+, Urine Glucose (UA) Negative, Urine Ketones 1+, Urine Blood 3+, Urine Nitrate Negative, Urine Bilirubin Negative, Urine Urobilinogen 0.2, Ur Leukocyte Esterase 1+ A, Urine RBC Tntc, Urine WBC 10 -20, Ur Squamous Epith Cells Occasional, Urine Bacteria 1+, Urine Mucus 1+ 11/18/17 00:00: Urine HCG, Qual Negative Result diagrams: 11/17/17 22:30 11/17/17 22:30 Orders (Tests/Meds): ED MEDICATIONS Generic Name Dose Route Start Last Admin Trade Name Freq PRN Reason Stop Dose Admin Ceftriaxone Sodium 1 gm/ 50 mls @ 100 mls/hr 11/18/17 00:30 11/18/17 00:28 Sodium Chloride IV 12/02/17 00:29 100 mls/hr Q24H MARGUERITE Administration Protocol Discontinued Medications Generic Name Dose Route Start Last Admin Trade Name Freq PRN Reason Stop Dose Admin Sodium Chloride 1,000 mls @ 999 mls/hr 11/17/17 22:45 11/17/17 22:44 Sod Chlor 0.9% 1000ml Bag IV 11/17/17 23:45 999 mls/hr .Q1H1M MARGUERITE Administration ORDERS Category Date Time Status Urine Culture Stat Micro 11/18/17 00:00 Received - Aram Inquiry Pt receiving controlled substance: No Female Urogenital HPI - General Chief complaint: Abdominal Pain Sta
[2017-11-17 22:57] LABS: Anion Gap 12.6 mEq/L (5-15); Blood Urea Nitrogen 13 mg/dL (7-18); Carbon Dioxide 24 mmol/L (21.0-32.0); Chloride 103 mmol/L (98-107); Creatinine Clearance Estimated 154 mL/min (0-300); Creatinine,Serum 0.81 mg/dL (0.55-1.02); Estimated Glomerular Filt Rate 88 ml/min (>60); GFR (African American) 107 ML/MIN (>60); Glucose 98 mg/dL (74-106); Potassium 3.6 mmoL/L (3.5-5.1); Sodium 136 mmol/L (136-145)
[2017-11-18 00:08] LABS: Appearance,Urine CLEAR (Clear); Bilirubin,Urine Negative (Negative); Blood, Urine 3+ (Negative); Color,Urine YELLOW (Yellow); Glucose,Urine (UA) Negative (Negative); Ketones,Urine 1+ (Negative); Leukocyte Esterase,Urine 1+ (Negative); Microscopic, Urine URINE MICROSCOPIC (MICROSCOPIC); Nitrate,Urine Negative (Negative); Protein,Urine 1+ (Negative); Specific Gravity, Urine >= 1.030 (1.005-1.030); Urobilinogen,Urine 0.2 EU/dl (0.2)
[2017-11-18 00:09] LABS: Urine Pregnancy, HCG Qual. Negative (Negative)
[2017-11-18 00:15] LABS: Bacteria,Urine 1+ /lpf; Mucus,Urine 1+ /lpf; RBC,Urine TNTC #/hpf (0-3); Squamous Epithelial Cell,Urine Occasional #/hpf (0-5)
[2017-11-18 01:07] VITALS: BP 113/63; PULSE 74; RESP 18; TEMP 36.8; O2SAT 98
== END 2017-11-18 01:07 | disposition home or self-care (01) ==
PROVIDERS: Emergency Provider Emergency Medicine; Family Provider Nurse Practitioner Family; PCP Nurse Practitioner Family
DX: N23 Unspecified renal colic (principal); N39.0 Urinary tract infection, site not specified; Z88.8 Allergy status to other drugs, medicaments and biological substances; Z90.49 Acquired absence of other specified parts of digestive tract
CPT/HCPCS: 80048; 81001; 81025; 85025; 87086; 96365; 96367; 96375; 99283; J0595

== ENCOUNTER → 2017-11-25 09:36 | Outpatient (CLI) | payer MEDICAID, SELFPAY ==
--- NOTE | 2017-11-25 09:42 | XR_ITS ---
XR KUB CLINICAL INDICATION: ITS.REASON: LT URETERAL STONE ORDERING PHYSICIAN: Dejon Simons MD PATIENT AGE: 22 years COMPARISON: CT scan of 10/29/2017 FINDINGS: Left ureteral stent remains in place with proximal aspect overlying the region of the renal pelvis and distal aspect overlying the region of the urinary bladder. There remains small calcifications along the course of the left ureteral stent in the mid pelvic region measuring 2 and 9 mm. A 2 mm calcific density may be due to an overlying phlebolith. The linear 9 mm densities probably related to residual stone fragment. IMPRESSION: Left ureteral stent remains in place with residual stone fragment within the distal ureter
== END ==
PROVIDERS: PCP Emergency Medicine; Visit Provider Urology
DX: N20.0 Calculus of kidney (principal)
CPT/HCPCS: 74018

== ENCOUNTER → 2017-12-02 09:45 | Outpatient (CLI) | payer MEDICAID, SELFPAY ==
--- NOTE | 2017-12-02 09:49 | XR_ITS ---
XR KUB CLINICAL INDICATION: ITS.REASON: LT URETERAL STONE ORDERING PHYSICIAN: Dejon Simons MD PATIENT AGE: 22 years COMPARISON: 11/25/2017 FINDINGS: Left ureteral stent has been removed. The linear calcific density that was adjacent to the distal aspect of the stent is no longer apparent. There is a small rounded calcific density in left pelvis measuring 2 mm and could be related to a phlebolith. IMPRESSION: Interval removal of left ureteral stent. Left distal ureteral stone no longer apparent
== END ==
PROVIDERS: PCP Nurse Practitioner Family; Visit Provider Urology
DX: N20.1 Calculus of ureter (principal)
CPT/HCPCS: 74018

== ENCOUNTER → 2018-02-18 10:59 | Outpatient (CLI) | payer MEDICAID, SELFPAY ==
[2018-02-19 20:26] LABS: Cancer Antigen (CA) 125 15.9 U/mL (0.0-38.1)
== END ==
PROVIDERS: Family Provider Nurse Practitioner Family; PCP Nurse Practitioner Family; Visit Provider Obstetrics & Gynecology
DX: N94.9 Unspecified condition associated with female genital organs and menstrual cycle (principal)
CPT/HCPCS: 36415; 86316

== ENCOUNTER → 2018-02-23 09:02 | Outpatient (CLI) | payer MEDICAID, SELFPAY ==
--- NOTE | 2018-02-23 09:06 | US_ITS ---
US transvaginal HISTORY: ITS.REASON: adenexal mass ORDERING PHYSICIAN: Bong Shepard MD PATIENT AGE: 22 years Comparison: [id number] FINDINGS: UTERUS: The uterus measures 8 x 4 x 5 cm. Combined endometrial thickness is 7 mm. No uterine mass evident. The right ovary is 3.5 x 3 cm containing small cysts the largest at 1 cm. There is a 1.5 cm area of heterogeneous echogenicity within the right ovary may be related to a hemorrhagic cyst. Left ovary has been removed. No cul-de-sac fluid evident. IMPRESSION: Small right ovarian cysts including a 1.5 cm area of heterogeneous echogenicity which may represent a hemorrhagic cyst
== END ==
PROVIDERS: Family Provider Nurse Practitioner Family; Visit Provider Obstetrics & Gynecology
DX: N94.9 Unspecified condition associated with female genital organs and menstrual cycle (principal)
CPT/HCPCS: 76830

== ENCOUNTER → 2018-04-05 15:14 | Outpatient (CLI) | payer MEDICAID, SELFPAY ==
[2018-04-05 15:19] LABS: Microscopic, Urine URINE MICROSCOPIC (MICROSCOPIC)
[2018-04-05 15:53] LABS: Basophils % 0.3 % (0.1-2.0); Eosinophils # 0.1 K/mm3 (0.0-0.4); Eosinophils % 1.3 % (0.1-12.0); Hematocrit 37.2 % (37.0-47.0); Hemoglobin 11.7 g/dL (12.2-16.2); Lymphocytes # 1.8 K/mm3 (0.7-4.5); Lymphocytes % 22.4 K/mm3 (10-50); Mean Corpuscular HGB Conc 31.6 g/dL (31.8-35.4); Mean Corpuscular Hemoglobin 27.7 pg (27.0-31.2); Mean Corpuscular Volume 87.7 fl (81-99); Mean Platelet Volume 8.4 fl (7.4-10.4); Monocytes # 0.5 K/mm3 (0.1-1.0); Monocytes % 5.6 % (1.7-9.3); Neutrophils # 5.8 K/mm3 (1.8-7.8); Neutrophils % 70.3 % (37.0-80.0); Platelet Count 362 K/mm3 (142-424); Red Blood Count 4.24 M/mm3 (4.20-5.40); Red Cell Distribution Width 14.9 % (11.5-17.5); White Blood Count 8.2 K/mm3 (4.8-10.8)
[2018-04-05 16:24] LABS: Appearance,Urine CLOUDY (Clear); Bilirubin,Urine Negative (Negative); Blood, Urine TRACE-L (Negative); Color,Urine YELLOW (Yellow); Glucose,Urine (UA) TRACE (Negative); Ketones,Urine TRACE (Negative); Leukocyte Esterase,Urine 1+ (Negative); Nitrate,Urine Negative (Negative); Protein,Urine TRACE (Negative)
[2018-04-05 16:29] LABS: Urine Pregnancy, HCG Qual. Negative (Negative)
[2018-04-05 17:25] LABS: Alanine Aminotransferase 19 U/L (12-78); Albumin Level 3.7 gm/dL (3.4-5.0); Albumin/Globulin Ratio 1.1 (1.1-1.8); Alkaline Phosphatase 73 U/L (46-116); Anion Gap 12.4 mEq/L (5-15); Aspartate Amino Transferase 9 U/L (15-37); Bilirubin,Total 0.1 mg/dL (0.2-1.0); Blood Urea Nitrogen 7 mg/dL (7-18); Calcium 9.1 mg/dL (8.5-10.1); Carbon Dioxide 25 mmol/L (21.0-32.0); Chloride 106 mmol/L (98-107); Creatinine,Serum 0.79 mg/dL (0.55-1.02); Estimated Glomerular Filt Rate 91 ml/min (>60); GFR (African American) 110 ML/MIN (>60); Globulin 3.4 gm/dl (1.3-3.2); Glucose 101 mg/dL (74-106); Potassium 4.4 mmoL/L (3.5-5.1); Sodium 139 mmol/L (136-145); Total Protein,Serum 7.1 gm/dL (6.4-8.2)
[2018-04-05 17:29] LABS: Bacteria,Urine 2+ /lpf; RBC,Urine Occasional #/hpf (0-3); Squamous Epithelial Cell,Urine 20-50 #/hpf (0-5); Trichomonas,Urine 4+ /lpf
== END ==
PROVIDERS: Visit Provider Surgery
DX: R10.31 Right lower quadrant pain (principal)
CPT/HCPCS: 36415; 80053; 81001; 81025; 85025; 87086; 87088; 87186

== ENCOUNTER → 2018-04-11 09:57 | Outpatient (CLI) | payer MEDICAID, SELFPAY ==
--- NOTE | 2018-04-11 09:58 | CT_ITS ---
CT abdomen pelvis w con CLINICAL INDICATION: Right lower quadrant pain for 2 weeks ITS.REASON: abdominal pain ORDERING PHYSICIAN: Nick Durán MD PATIENT AGE: 22 years COMPARISON: 04/09/2018 TECHNIQUE: Axial images obtained with sagittal and coronal reformats. All CT scans at the facility use one or more dose reduction, viz: automated exposure control; ma/kV adjustment per patient size (including targeted exams where dose is matched to indication; i.e. head); or iterative reconstruction technique. PROCEDURE: Oral Contrast: Redicat IV Contrast: 75 mL's of Isovue-370. FINDINGS: Lung bases are clear. Prior cholecystectomy without ductal dilatation. The liver, spleen, adrenal glands, pancreas, and kidneys have an unremarkable appearance. No intestinal obstruction or free air. Unremarkable appendix. The terminal ileum has an unremarkable appearance. No evidence of intestinal obstruction or free air. No bowel wall thickening apparent. There is a 1.9 cm right ovarian cyst with some mild peripheral enhancement of the wall and could be due to a hemorrhagic cyst. Small amount fluid is present in the cul-de-sac. Bulging disc is present at L4-L5 with small right paracentral disc protrusion. IMPRESSION: 1. 1.9 cm cystic lesion involving the right ovary with some enhancement of the wall possibly related to a hemorrhagic cyst. Consider ultrasound follow-up to confirm resolution. There is a small amount fluid in the cul-de-sac 2. Otherwise negative CT abdomen pelvis. No evidence of appendicitis or obstructing ureteral calculus. 3. Small right paracentral disc protrusion at L4-L5
== END ==
PROVIDERS: Family Provider Nurse Practitioner Family; PCP Obstetrics & Gynecology; Visit Provider Surgery
DX: R10.31 Right lower quadrant pain (principal); R11.0 Nausea
CPT/HCPCS: 74177; Q9967

== ENCOUNTER → 2018-04-27 13:24 | Outpatient (CLI) | payer MEDICAID, SELFPAY ==
--- NOTE | 2018-04-27 13:26 | XR_ITS ---
XR chest 2V HISTORY: Chest pain, smoker ITS.REASON: TOB DEP ORDERING PHYSICIAN: Nabil Rojas MD PATIENT AGE: 22 years COMPARISON: None FINDINGS: The cardiomediastinal silhouette and pulmonary vascularity are within normal limits. The lungs are clear without infiltrates, suspicious nodules, or pleural effusions. No acute bony abnormalities. IMPRESSION: No change with no acute finding
== END ==
PROVIDERS: Visit Provider Internal Medicine
DX: F17.200 Nicotine dependence, unspecified, uncomplicated (principal)
CPT/HCPCS: 71046

== ENCOUNTER → 2018-04-28 15:01 | Outpatient (CLI) | payer MEDICAID, SELFPAY ==
--- NOTE | 2018-04-28 15:02 | CA_ITS ---
PROCEDURE: 2-D M-mode and color Doppler study INDICATIONS FOR THE TEST: Chest pain X COPD Heart Murmur Tobacco SmokingX Palpitations FatigueX Syncope Edema Hypertension Diabetes Mellitus Rheumatic Fever SOBXDOE ObesityXHyperlipidemia Family History HDX Additional History PATIENT INFORMATION HEIGHT: 63 WEIGHT:181 GENDER: Female B/P:122/82 2-D/M-MODE INTERPRETATION: 2-D MEASUREMENTS OBSERVED VALUES IN CMS Right Ventricular Dimension (RVDd) 1.9 Interventricular Septum (Thickness)(IVsd) .7 Left Ventricular Internal Dimensions(LVIDd) 4.9 Left Ventricular Posterior Wall (Thickness)(LVPWd) .7 Aortic Root 2.7 Aortic Cusp Separation 1.7 Left Atrial Dimensions (LAD) 2.5 2D 1. Left atrium is normal size, left ventricle is normal size, there is no concentric left ventricular hypertrophy, visually estimated ejection fraction 55% with no obvious regional wall motion abnormality. 2. The right atrium and right ventricle are normal size and contractility. 3. The aortic, mitral and tricuspid valve are grossly normal. 4. The pulmonic valve is poorly visualized. 5. No significant pericardial effusion noted. DOPPLER INTERROGATION: Doppler interrogation of the aortic, mitral and tricuspid valvular presence of mild mitral and tricuspid regurgitation, tricuspid and jet velocity is insufficient for calculation of the right ventricular systolic pressure, diastolic parameters are within normal range. CONCLUSION: 1. Normal left ventricular size, preserved left ventricular systolic function, visually estimated ejection fraction 55% with no obvious regional wall motion abnormality, diastolic parameters are within normal range. 2. Mild mitral and tricuspid regurgitation 3. No significant pericardial effusion noted.
== END ==
PROVIDERS: Family Provider Nurse Practitioner Family; PCP Family Medicine; Visit Provider Internal Medicine
DX: R07.9 Chest pain, unspecified (principal); R06.00 Dyspnea, unspecified
CPT/HCPCS: 93306

== ENCOUNTER → 2018-04-29 11:41 | Outpatient (CLI) | payer MEDICAID, SELFPAY ==
--- NOTE | 2018-04-29 11:58 | XR_ITS ---
EXAM: XR thoracic spine 3V HISTORY: ITS.REASON: THORACIC PAIN,RT SIDED LOW BACK PAIN Comparison: None FINDINGS: Normal alignment. No fracture or dislocation. No lytic or blastic change. No significant degenerative change. The disc spaces are preserved. IMPRESSION: No acute finding
--- NOTE | 2018-04-29 11:58 | XR_ITS ---
EXAM: XR lumbar spine min 4V HISTORY: ITS.REASON: THORACIC PAIN,RT SIDED LOW BACK PAIN ORDERING PHYSICIAN: Toña Cat PATIENT AGE: 22 years COMPARISON: None FINDINGS: Normal alignment. Mild thoracolumbar curvature convex right. Straightening of lumbar lordosis No fracture or dislocation. No lytic or blastic change. No significant degenerative change. The disc spaces are preserved. IMPRESSION: No acute finding Straightening of lumbar lordosis with mild right lumbar curvature convex right
== END ==
PROVIDERS: PCP Family Medicine; Visit Provider Nurse Practitioner Family
DX: M54.6 Pain in thoracic spine (principal); M54.41 Lumbago with sciatica, right side
CPT/HCPCS: 72072; 72110

== ENCOUNTER → 2018-05-09 10:28 | Outpatient (CLI) | payer MEDICAID, SELFPAY ==
[2018-05-09 11:00] LABS: Basophils % 0.3 % (0.1-2.0); Eosinophils # 0.2 K/mm3 (0.0-0.4); Hematocrit 37.6 % (37.0-47.0); Hemoglobin 11.7 g/dL (12.2-16.2); Lymphocytes # 2.1 K/mm3 (0.7-4.5); Lymphocytes % 25.2 K/mm3 (10-50); Mean Corpuscular HGB Conc 31.2 g/dL (31.8-35.4); Mean Corpuscular Hemoglobin 27.1 pg (27.0-31.2); Mean Corpuscular Volume 86.8 fl (81-99); Monocytes # 0.5 K/mm3 (0.1-1.0); Monocytes % 5.7 % (1.7-9.3); Neutrophils # 5.4 K/mm3 (1.8-7.8); Neutrophils % 66.9 % (37.0-80.0); Platelet Count 373 K/mm3 (142-424); Red Blood Count 4.33 M/mm3 (4.20-5.40); Red Cell Distribution Width 14.5 % (11.5-17.5); White Blood Count 8.1 K/mm3 (4.8-10.8)
[2018-05-09 11:06] LABS: Anion Gap 8.5 mEq/L (5-15); Blood Urea Nitrogen 8 mg/dL (7-18); Carbon Dioxide 25 mmol/L (21.0-32.0); Chloride 104 mmol/L (98-107); Creatinine,Serum 0.73 mg/dL (0.55-1.02); Estimated Glomerular Filt Rate 100 ml/min (>60); GFR (African American) 121 ML/MIN (>60); Potassium 4.2 mmoL/L (3.5-5.1); Sodium 137 mmol/L (136-145)
[2018-05-09 11:07] LABS: Calcium 8.9 mg/dL (8.5-10.1); Glucose 104 mg/dL (74-106)
[2018-05-09 11:18] LABS: Troponin I < 0.02 ng/ml (0.00-0.06)
[2018-05-09 11:21] LABS: CKMB Relative Index 1.5 U/L (0-4.0); Creatine Kinase 34 U/L (26-192); Creatine Kinase MB < 0.5 ng/ml (0.0-3.6)
[2018-05-10 08:28] LABS: Iron 31 ug/dL (27-159); UIBC 304 ug/dL (131-425)
[2018-05-11 14:49] LABS: Iron Saturation 9 % (15-55)
== END ==
PROVIDERS: PCP Family Medicine; Visit Provider Internal Medicine
DX: I20.9 Angina pectoris, unspecified (principal); Z82.49 Family history of ischemic heart disease and other diseases of the circulatory system; Z72.0 Tobacco use; Z86.2 Personal history of diseases of the blood and blood-forming organs and certain disorders involving the immune mechanism
CPT/HCPCS: 36415; 80048; 82550; 82553; 83540; 83550; 84484; 85025

== ENCOUNTER → 2018-06-14 10:51 | Outpatient (POV) | payer MEDICAID, SELFPAY ==
[2018-06-14 11:17] VITALS: BP 109/65; PULSE 70; RESP 18; O2SAT 98
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
== END ==
PROVIDERS: Family Provider Nurse Practitioner Family; PCP Family Medicine; Visit Provider Clinical Nurse Specialist Family Health
DX: M51.16 Intervertebral disc disorders with radiculopathy, lumbar region (principal)
CPT/HCPCS: 99202

== ENCOUNTER → 2018-06-22 07:44 | Outpatient (CLI) | payer MEDICAID, SELFPAY ==
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
== END ==
PROVIDERS: Family Provider Nurse Practitioner Family; PCP Family Medicine; Visit Provider Clinical Nurse Specialist Family Health
DX: M54.9 Dorsalgia, unspecified (principal)
CPT/HCPCS: 72148; 76376

== ENCOUNTER → 2018-06-28 09:25 | Outpatient (POV) | payer MEDICAID, SELFPAY ==
[2018-06-28 09:32] VITALS: BP 117/60; PULSE 75; RESP 18; O2SAT 98; BMI 31.8
--- NOTE | 2018-06-28 09:47 | HMH.PAINSOAP ---
[facility] Pain Management SOAP Note Subjective:: Patient is a pleasant 23-year-old white female who presents today for follow-up after MRI. Patient recently went to the ER with a complaint of pain. Patient states that he did not do anything for her because she is in pain management. According to the ER notes she received Suboxone however she felt it was not for her. I have some concerns in regards to her narcotic use and the amount of physicians he has received narcotics from. The ER doctor stated that he did not feel that there was anything that they could provide for her. Patient has been sent to orthopedic spine I offered a neurosurgical consultation as well. Patient is interested in this. She rates her pain a 10 out of 10 she is in distress. ROS General: no recent weight change, no fever, no sleep disturbances Respiratory: no cough, no shortness of air, no recurring pulmonary infections Cardiovascular/Peripheral Vascular: No chest pain, No palpitations, no edema, no shortness of breath. Gastrointestinal: no incontinence, normal bowel movements reported Genitourinary: no incontinence Musculoskeletal: Back pain, leg pain Psychiatric: normal mood/ affect Neurological: [denies weakness in extremities], [denies balance issues] Objective:: Physical Exam General: Alert and oriented x3, no acute distress, pleasant and cooperative, [on room air] Lungs: Resps E/U, Symmetrical chest expansion, Eyes: PERRL Musculoskeletal: Flexion and extension of lumbar spine somewhat guarded secondary to pain, deep tendon reflexes normal, strength in upper and lower extremities [5/5], normal noted Neurological: speech clear, 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 King. I will follow-up with the patient on an as-needed basis. This note was dictated using voice recognition software and may contain errors or omissions
--- NOTE | 2018-06-28 09:52 | P.CONS_ITS ---
[facility] Pain Management SOAP Note Subjective:: Patient is a pleasant 23-year-old white female who presents today for follow-up after MRI. Patient recently went to the ER with a complaint of pain. Patient states that he did not do anything for her because she is in pain management. According to the ER notes she received Suboxone however she felt it was not for her. I have some concerns in regards to her narcotic use and the amount of physicians he has received narcotics from. The ER doctor stated that he did not feel that there was anything that they could provide for her. Patient has been sent to orthopedic spine I offered a neurosurgical consultation as well. Patient is interested in this. She rates her pain a 10 out of 10 she is in distress. ROS General: no recent weight change, no fever, no sleep disturbances Respiratory: no cough, no shortness of air, no recurring pulmonary infections Cardiovascular/Peripheral Vascular: No chest pain, No palpitations, no edema, no shortness of breath. Gastrointestinal: no incontinence, normal bowel movements reported Genitourinary: no incontinence Musculoskeletal: Back pain, leg pain Psychiatric: normal mood/ affect Neurological: [denies weakness in extremities], [denies balance issues] Objective:: Physical Exam General: Alert and oriented x3, no acute distress, pleasant and cooperative, [on room air] Lungs: Resps E/U, Symmetrical chest expansion, Eyes: PERRL Musculoskeletal: Flexion and extension of lumbar spine somewhat guarded secon phani to pain, deep tendon reflexes normal, strength in upper and lower extremities [5/5], normal noted Neurological: speech clear, trust accounts supervisor equal, no gross sensory deficits Assessment:: Degenerative disc disease lumbar spine with lumbar radiculopathy Plan:: We will send a referral to Dr. King. I will follow-up with the patient on an as-needed basis. This note was dictated using voice recognition software and may contain errors or omissions
== END ==
PROVIDERS: Family Provider Nurse Practitioner Family; PCP Family Medicine; Visit Provider Clinical Nurse Specialist Family Health
DX: M51.36 Other intervertebral disc degeneration, lumbar region (principal)
CPT/HCPCS: 99213

== ENCOUNTER → 2018-10-10 11:47 | Outpatient (CLI) | payer MEDICAID, SELFPAY ==
[2018-10-10 12:12] LABS: Basophils % 0.3 % (0.1-2.0); Eosinophils # 0.1 K/mm3 (0.0-0.4); Eosinophils % 0.8 % (0.1-12.0); Hematocrit 42.3 % (37.0-47.0); Hemoglobin 12.9 g/dL (12.2-16.2); Lymphocytes % 24.9 % (10-50); Mean Corpuscular HGB Conc 30.5 g/dL (31.8-35.4); Mean Corpuscular Hemoglobin 27.3 pg (27.0-31.2); Mean Corpuscular Volume 89.3 fl (81-99); Mean Platelet Volume 8.5 fl (7.4-10.4); Monocytes # 0.5 K/mm3 (0.1-1.0); Monocytes % 5.6 % (1.7-9.3); Neutrophils # 5.6 K/mm3 (1.8-7.8); Neutrophils % 68.4 % (37.0-80.0); Platelet Count 360 K/mm3 (142-424); Red Blood Count 4.74 M/mm3 (4.20-5.40); Red Cell Distribution Width 13.8 % (11.5-17.5); White Blood Count 8.1 K/mm3 (4.8-10.8)
[2018-10-10 13:09] LABS: Anion Gap 16.5 mEq/L (5-15); Blood Urea Nitrogen 12 mg/dL (7-18); Calcium 9.9 mg/dL (8.5-10.1); Carbon Dioxide 21 mmol/L (21.0-32.0); Chloride 105 mmol/L (98-107); Creatinine,Serum 0.77 mg/dL (0.55-1.02); Estimated Glomerular Filt Rate 93 ml/min (>60); GFR (African American) 112 ML/MIN (>60); Glucose 92 mg/dL (74-106); Potassium 4.5 mmoL/L (3.5-5.1); Sodium 138 mmol/L (136-145)
== END ==
PROVIDERS: Urology; PCP Family Medicine; Visit Provider Internal Medicine
DX: R00.2 Palpitations (principal); R07.89 Other chest pain; R06.02 Shortness of breath
CPT/HCPCS: 36415; 80048; 85025

== ENCOUNTER → 2018-10-20 15:22 | Outpatient (CLI) | payer MEDICAID, SELFPAY ==
--- NOTE | 2018-10-20 15:24 | US_ITS ---
US transvaginal HISTORY: Abnormal uterine bleeding, prolonged bleeding ITS.REASON: US T/V- Pelvic Pain ORDERING PHYSICIAN: Oj Sanchez MD PATIENT AGE: 23 years Comparison: None FINDINGS: The uterus is 7.6 x 3.7 x 4.5 cm with a combined endometrial thickness of 2 mm. No uterine mass or abnormal fluid collection evident. The right ovary is 3.3 x 3 cm and contains small follicles. Blood flow is present. The left ovary has been removed. No cul-de-sac fluid apparent. IMPRESSION: Unremarkable appearing uterus with small right ovarian follicles. Prior left oophorectomy
== END ==
PROVIDERS: PCP Family Medicine; Visit Provider Nurse Practitioner Obstetrics & Gynecology
DX: R10.2 Pelvic and perineal pain (principal)
CPT/HCPCS: 76830

== ENCOUNTER → 2018-11-02 09:30 | Outpatient (CLI) | payer MEDICAID, SELFPAY ==
[2018-11-02 10:04] LABS: Basophils % 0.7 % (0.1-2.0); Eosinophils # 0.1 K/mm3 (0.0-0.4); Eosinophils % 1.9 % (0.1-12.0); Hematocrit 40.8 % (37.0-47.0); Lymphocytes # 2.2 K/mm3 (0.7-4.5); Lymphocytes % 37.2 % (10-50); Mean Corpuscular HGB Conc 31.8 g/dL (31.8-35.4); Mean Corpuscular Hemoglobin 27.9 pg (27.0-31.2); Mean Corpuscular Volume 87.8 fl (81-99); Mean Platelet Volume 8.5 fl (7.4-10.4); Monocytes # 0.3 K/mm3 (0.1-1.0); Neutrophils # 3.2 K/mm3 (1.8-7.8); Neutrophils % 55.2 % (37.0-80.0); Platelet Count 317 K/mm3 (142-424); Red Blood Count 4.65 M/mm3 (4.20-5.40); White Blood Count 5.8 K/mm3 (4.8-10.8)
[2018-11-02 10:43] LABS: Blood Urea Nitrogen 11 mg/dL (7-18); Calcium 9.1 mg/dL (8.5-10.1); Carbon Dioxide 26 mmol/L (21.0-32.0); Chloride 105 mmol/L (98-107); Creatinine,Serum 0.84 mg/dL (0.55-1.02); Estimated Glomerular Filt Rate 84 ml/min (>60); GFR (African American) 102 ML/MIN (>60); Glucose 98 mg/dL (74-106); Sodium 140 mmol/L (136-145)
[2018-11-02 14:43] LABS: HCG Qualitative, Serum Negative (Negative)
== END ==
PROVIDERS: Visit Provider Nurse Practitioner Obstetrics & Gynecology
DX: Z01.818 Encounter for other preprocedural examination (principal)
CPT/HCPCS: 36415; 80048; 84703; 85025

== ENCOUNTER 2018-11-04 06:07 | Observation (INO) ==
--- NOTE | 2018-11-04 07:14 | Progress Note ---
[facility] Anesthesia Checklist - Patient Identification Patient Identification: Arm Band - Structural Data Admitted From: Home Planned Operative Procedure/s: lavh, rso, appendectomy Consent for Planned Operative Procedure(s) Verified: Yes Verified Documents: Surgical Consent, History and Physical - NPO Status Verified Time NPO: 00:00 - Additional verifications Anesthesia Reactions: No - Airway Assessment C-Spine Mobility Assessed: Yes (mp2) TMJ Mobility Assessed: Yes Dentition: Poor Dentition (missing upper left tooth) - Neurological Assessment Level of Consciousness: Awake, Alert - Anesthesia Plan Anesthesia Risk discussed: Yes Anesthesia Plan: Verified ASA Class: II Anesthesia Type: General [facility] History I have reviewed the patient's past medical history: Yes Medical History: Reports:: Hypertension, Palpitations, Seizures Denies:: Cancer, Diabetes Mellitus Type 1, Diabetes Mellitus Type 2, MRSA *Have you ever received a pneumonia vaccine?: No *Have you received a flu vaccine this season?: No Other Surgeries: Yes: Cholecystectomy, Other (Left SO) Amputation: No Fractures: No - *Social History Educational Level: Completed High School Smoking Status: Current every day smoker Tobacco Type: cigarettes # Packs/Day (cigarettes): 1 Alcohol Intake: never Alcohol Intake Frequency:: other Substance Use Type: former substance user *Occupational Status:: unemployed Housing: house Household Members: spouse *Travel in the last 8 weeks: None - Psychiatric History Expresses thoughts of harming self/others: None Suicide Plan Description: No Plan Family Hx:: Hypertension, Diabetes, Heart Attack, Cancer REGIONAL EXTENSION SERVICE SPECIALIST history: No REGIONAL EXTENSION SERVICE SPECIALIST history
--- NOTE | 2018-11-04 09:51 | Progress Note ---
[facility] Anesthesia Record Part I Intake, IV Amount: 1,600 Estimated blood loss (mL): 100 Urine output (mL): 150 Blood Pressure: 112/64 SaO2: 98 Pulse Rate: 76 Respiratory Rate: 16 Temperature: 97.6 F Patient is:: Drowsy, Stable Stable to PACU at:: 09:45
--- NOTE | 2018-11-04 09:52 | Progress Note ---
[facility] Anesthesia Record Part II Discharge Time: 10:15 Destination: 2nd floor PACU nurse assessment reviewed?: Yes Patient Condition:: Good Anesthesia Complications:: None Swallowing reflex intact?: Yes Cyanosis?: No
--- NOTE | 2018-11-04 09:52 | Operative Note ---
Date of procedure: 11/04/18 Pre-op Diagnosis:: Pelvic pain, history of endometriosis, history of adhesions, right lower quadrant pain Post-op Diagnosis:: Pelvic pain, history of endometriosis, right lower quadrant pain, history of adhesions, Procedure performed:: Laparoscopically assisted vaginal hysterectomy, right salpingo-oophorectomy, lysis of adhesions, appendectomy Surgeon:: Oj Sanchez MD Knitter Hand(s):: Dr. Shepard FIELD AGENT:: Veto Meza Anesthesia: GETA Estimated blood loss (mL): 100 Clinical Note:: She is a 23-year-old lady who complains of extreme right lower limb pain. She requested a hysterectomy. She does not want to have children. She has had a previous left salpingo-nephrectomy and has chronic pelvic pain. She has a history of enuresis. Is a history of adhesions. After having discussed the risks and benefits she elected to have a laparoscopic assisted vaginal hysterectomy and right salpingo-nephrectomy along with appendectomy. Operative findings:: She had a normal-appearing somewhat bulky uterus. The right ovary and tube appeared normal although the right ovary had adhesions to the right pelvic sidewall. There were also lesions of the a sending colon to the anterior abdominal wall. The appendix appeared normal but was somewhat stiff. The right ovary appeared normal. The right tube was normal. She had a previous left salpingo-nephrectomy. Operative note:: She was taken to the operating room where general anesthesia was found be adequate. She was prepped and draped in the normal sterile fashion in the semi- lithotomy position. A weighted speculum was placed in the vagina and the anterior lip of the cervix was grasped with a tenaculum. I inserted a Sara retractor into the uterine cavity and insufflated the balloon. I then changed gloves and injected 10 mL of 0.5 percent ropivacaine around the umbilicus. I made a small incision within the umbilicus and inserted a Veress needle into the abdominal cavity. The abdominal cavity was then insufflated with carbon dioxide gas to a pressure of 20 mill meter mercury. I then inserted an 11 mm trocar under direct vision. I injected through and through the pubic hairline, made a small incision here and inserted a 5 mm trocar under direct vision. I identified the inferior epigastric arteries on the LEFT side and went lateral to these and injected through and through with a spinal needle. I made a small incision and inserted an 11 mm trocar under direct vision. This was s imilarly performed on the patient's RIGHT side. I grasped the left round ligament and opened this up with harmonic scalpel. I opened up the peritoneum anteriorly to the midline. I then took down the posterior aspect of the broad ligament to the level of the uterosacral ligament on the LEFT side. The uterine arteries on the LEFT side were then skeletonized. Hemoclips were placed across the uterine arteries and then the uterine arteries were cauterized with Harmonic scalpel adjacent to the cervix. We then further took down the bladder anteriorly. I grasped the RIGHT round ligament and cut through this with Harmonic scalpel. This was followed by the RIGHT tube. I then cauterized and cut the RIGHT utero- ovarian ligament with Harmonic scalpel. I then freed up the peritoneum anteriorly on the RIGHT side joining up with the midline. I then took down the posterior aspect of the broad ligament to the level of the uterosacral ligament. The uterine arteries on the RIGHT side were skeletonized. Hemoclips were applied to the uterine arteries. I then cauterized and cut the uterine arteries with Harmonic scalpel adjacent to the cervix. I freed up the bladder pillars on the RIGHT side and the LEFT side. I freed up the bladder anteriorly along the cervix. I then grasped the right tube and freed up on its infundibulopelvic ligament. 2 Endoloops were then placed across the infundibulopelvic ligament. The right ovary and tube were then removed with scissors. The tube and ovary were placed in the cul-de-sac to be retrieved later in the surgery. I then inserted a 12 mm trocar through the right lower quadrant 11 mm trocar site. The appendix was visualized and grasped at its distal end. Using harmonic scalpel I cut along the mesoappendix to free up the appendix. I then placed a Endo HERI across the base of the appendix and fired the Endo HERI. The appendix was then removed through the 11 mm trocar site. After assuring hemostasis and rinsing the pelvis well we then turned our attention to the vaginal portion of the surgery. The patient was placed in the lithotomy position. A weighted spectrum was placed in vagina. The anterior and posterior lip of the cervix were grasped with Nguyen tenacula. I injected 20 mL of 1 percent Xylocaine with epinephrine circumferentially about the cervix. I then circumscribed the cervix with knife. I then opened up into the posterior cul-de-sac with Chaidez scissors. A long weighted speculum is placed through this defect. The left uterosacral ligament was then clamped cut, suture-ligated and tagged. This was followed by the left cardinal ligament which was clamped cut and suture-ligated and tagged. The right uterosacral ligament was then clamped, cut and suture-ligated and tagged. This is followed by the right cardinal ligament which was clamped cut and suture-ligated. The anterior aspect of the vaginal mucosa was then dissected off and the bladder peritoneum was opened. A Seney retractor was placed through this defect. There were 2 small pedicles of tissue that were clamped and cut. The uterus was then removed through the vagina. These pedicles were then suture-ligated. The posterior cuff was then closed using running 2-0 Vicryl suture in a locked fashion. A Fitzgerald suture was then placed using 0 PDS suture. I first passed the suture through the vagina and peritoneum. I then picked up the left perirectal fascia and plicated across the posterior peritoneum. This was followed by passing the suture through the right perirectal fascia. The suture was then passed through the peritoneum and vagina and left to be at the end. She was once of again placed in the semi-lithotomy position. I changed gloves. The abdominal cavity was insufflated with carbon oxide gas to a pressure of 20 mmHg. The pelvis was rinsed and once again hemostasis was assured. I injected approximately 30 cc of 0.5% ropivacaine into the pelvis. The secondary trochars were then removed under direct vision. The sites were hemostatic. The gas was let out of the abdomen and the primary trocar and camera were removed together. No bowel seen to follow. The 11 mm trocar sites were closed deeply with 2-0 Vicryl suture followed by run darlin subcuticular 4-0 Monocryl suture. The 5 mm trocar site was closed with subcuticular 4-0 Monocryl suture. Sterile dressings were applied. The patient tolerated the procedure well and was taken to the recovery room in excellent condition. All sponge instrument and needle counts were correct. Estimate a blood loss was approximately 100 mL.She has normal periods Condition: stable Disposition: PACU Specimens:: Uterus, right ovary and tube, appendix Complications:: None
--- NOTE | 2018-11-04 16:24 | Pharmacy Consult Notes ---
[facility] Pharmacy VTE Monitoring - Patient Demographics Admission date: 11/04/18 Report Date: 11/04/18 Time: 16:24 Allergies/Adverse Reactions: Patient Allergies NSAIDS (Non-Steroidal Anti-Inflamma Allergy (Intermediate, Verified 11/02/18 10:20) Rash ketorolac [From TORADOL] Allergy (Mild, Verified 11/02/18 10:20) tramadol [TRAMADOL] Allergy (Mild, Verified 11/02/18 10:20) diphenhydramine [From BENADRYL] Allergy (Unknown, Verified 11/02/18 10:20) I-HIVES Height: 1.6 m Weight: 81.647 kg - VTE Risk Clinical Trial Participant: No - Prophylaxis VTE Prophylaxis Ordered?: Yes Types of VTE Prophylaxis: IPCS Thigh High, IPCS Knee High (POST OP) Location of Applied Device: Bilateral Lower Extremeties
[2018-11-04 16:58] LABS: Hematocrit 38.2 % (37.0-47.0); Hemoglobin 12.4 g/dL (12.2-16.2)
[2018-11-05 06:33] LABS: Basophils % 0.1 % (0.1-2.0); Eosinophils % 0.1 % (0.1-12.0); Hematocrit 35.3 % (37.0-47.0); Hemoglobin 11.3 g/dL (12.2-16.2); Lymphocytes # 1.5 K/mm3 (0.7-4.5); Lymphocytes % 12.2 % (10-50); Mean Corpuscular Hemoglobin 27.9 pg (27.0-31.2); Mean Corpuscular Volume 87.3 fl (81-99); Mean Platelet Volume 8.5 fl (7.4-10.4); Monocytes # 0.7 K/mm3 (0.1-1.0); Monocytes % 5.8 % (1.7-9.3); Neutrophils # 10.3 K/mm3 (1.8-7.8); Neutrophils % 81.9 % (37.0-80.0); Platelet Count 290 K/mm3 (142-424); Red Blood Count 4.04 M/mm3 (4.20-5.40); Red Cell Distribution Width 14.2 % (11.5-17.5); White Blood Count 12.6 K/mm3 (4.8-10.8)
[2018-11-05 06:40] LABS: Anion Gap 14.8 mEq/L (5-15); Calcium 8.3 mg/dL (8.5-10.1); Potassium 3.8 mmoL/L (3.5-5.1)
--- NOTE | 2018-11-05 11:09 | Discharge Summary ---
General - General Admission date:: 11/04/18 Discharge date: 11/05/18 HPI HPI: She is a 23-year-old 0 para 0 lady who complains of severe right lower quadrant pain. She has had multiple surgeries in the past for pain. She does not want to have any children. She is to a woman. Breast desire for complete hysterectomy. After having discussed the risks and benefits we went ahead with a laparoscopically assisted vaginal hysterectomy and right salpingo- oophorectomy. She has had a previous LSO. Since she had right lower quadrant pain I also offered her appendectomy. Hospital Course Hospital Course: On November 04, 2018 she underwent a laparoscopically sternal hysterectomy and right salpingo-nephrectomy. We also performed a laparoscopic appendectomy. She had some adhesions as well on the right side the a sending colon to the right well. These were taken down at the time of her surgery. She has done well postoperatively and has remained afebrile throughout station. She is eating and drinking and ambulating. She is voiding well. She denies any chest pain, shortness of breath or calf tenderness. She will be discharged home to follow-up with me in approximately 2 weeks time she was given the usual instructions with respect to limiting her activity, driving and sexual activity. She was given a prescription for Percocet 10/325 #30 tab. Also received 20 mg of IM Delestrogen post surgery. Her condition on discharge is stable. Rhogam Administration: Not Indicated Objective Vital signs: Temp Pulse Resp BP Pulse Ox 98.4 F 56 L 17 109/61 L 100 11/05/18 08:00 11/05/18 08:00 11/05/18 08:00 11/05/18 08:00 11/05/18 08:00 - *Routine Abdominal Exam Comments: Her incisions are clean and dry. - Detailed Eye Exam Eyelids: Left normal inspection Results Labs on day of discharge: Labs from last 24 hours 11/05/18 11/05/18 11/04/18 05:57 05:57 16:50 WBC 12.6 H D RBC 4.04 L Hgb 11.3 L 12.4 Hct 35.3 L 38.2 MCV 87.3 MCH 27.9 MCHC 32.0 RDW 14.2 Plt Count 290 MPV 8.5 Neut % (Auto) 81.9 H Lymph % (Auto) 12.2 [place] % (Auto) 5.8 Eos % (Auto) 0.1 Baso % (Auto) 0.1 Neut # (Auto) 10.3 H Lymph # (Auto) 1.5 [place] # (Auto) 0.7 Eos # (Auto) 0.0 Baso # (Auto) 0.0 Sodium 139 Potassium 3.8 Chloride 106 Carbon Dioxide 22 Anion Gap 14.8 BUN 7 D Creatinine 0.84 Estimated Creat Clear 134 Estimated GFR 84 Est GFR ( Amer) 102 Glucose 115 H Calcium 8.3 L Urine Color Urine Appearance Urine pH Ur Specific [place] Urine Protein Urine Glucose (UA) Urine Ketones Urine Blood Urine Nitrate Urine Bilirubin Urine Urobilinogen Ur Leukocyte Esterase Urine RBC Urine WBC Ur Squamous Epith Cells Urine Bacteria 11/04/18 08:45 WBC RBC Hgb Hct MCV MCH MCHC RDW Plt Count MPV Neut % (Auto) Lymph % (Auto) [place] % (Auto) Eos % (Auto) Baso % (Auto) Neut # (Auto) Lymph # (Auto) [place] # (Auto) Eos # (Auto) Baso # (Auto) Sodium Potassium Chloride Carbon Dioxide Anion Gap BUN Creatinine Estimated Creat Clear Estimated GFR Est GFR ( Amer) Glucose Calcium Urine Color Yellow Urine Appearance Clear Urine pH 7.5 Ur Specific [place] 1.025 Urine Protein Negative Urine Glucose (UA) Negative Urine Ketones Negative Urine Blood 1+ Urine Nitrate Negative Urine Bilirubin Negative Urine Urobilinogen 0.2 Ur Leukocyte Esterase Negative Urine RBC 3-5 Urine WBC 3-5 Ur Squamous Epith Cells 5-10 Urine Bacteria Trace DS: Diagnosis - Discharge Diagnosis (1) Right lower quadrant pain Status: Acute (2) Menorrhagia Status: Acute (3) Dysmenorrhea Status: Acute (4) Abdominal pain of unknown etiology Status: Acute (5) Anemia Status: Acute (6) Endometriosis Status: Acute (7) Pelvic pain Status: Acute Discharge Plan - Patient Discharge Instructions ACTIVITY: No heavy lifting DIET: continue same diet Additional Instructions: NO DRIVING FOR 2 WEEKS NO HEAVY LIFTING OR STRENUOUS ACTIVITY NOTHING IN VAGINA FOR 6 WEEKS SHOWERS UNTIL CLEARED BY DR. SANCHEZ Patient Instructions: How to Care for a Surgical Wound, DI for Postoperative Pain, Appendectomy -- Laparoscopic Surgery, Hysterectomy -- Laparoscopic Surgery - Follow up Plan Follow up with: Oj Sanchez MD [Staff Physician] - 11/18/18 10:45 am Disposition: Home, Self-Senior Care Medications: Home Medications Medication Instructions Recorded Confirmed Type RX: Bisoprolol Fumarate [Zebeta 5 mg PO DAILY 06/24/18 11/04/18 History 5mg tablet] Oxycodone HCl/Acetaminophen 1 tab PO Q6H PRN #30 tab 11/05/18 Rx [Percocet 10-325 mg Tablet] Prescriptions/Medication Reconciliation: New Oxycodone HCl/Acetaminophen [Percocet 10-325 mg Tablet] 1 tab PO Q6H PRN #30 tab PRN Reason: Moderate To Severe Pain Continue RX: Bisoprolol Fumarate [Zebeta 5mg tablet] 5 mg PO DAILY
== END 2018-11-05 11:15 | disposition home or self-care (01) ==
LOC: OB 06:07 → OR 06:07
PROVIDERS: ADMIT Nurse Practitioner Obstetrics & Gynecology; ATTEND Nurse Practitioner Obstetrics & Gynecology
CPT/HCPCS: 36415; 80048; 81001; 85014; 85018; 85025; 94761; 96372; 96374; G0378; J2405; J2710

== ENCOUNTER → 2019-04-28 08:51 | Outpatient (POV) | payer MEDICAID, SELFPAY ==
[2019-04-28 09:06] VITALS: BP 115/68; PULSE 59; RESP 18; O2SAT 98; BMI 40.7
--- NOTE | 2019-04-28 09:55 | P.CONS_ITS ---
[facility] Pain Management SOAP Note Subjective:: Patient is a pleasant 23-year-old white female who presents with increasing back pain and leg pain. We last saw her in June 2018. At that time it was recommended that she be sent for neurosurgical consultation. She did see Dr. King. She was referred for injections. She did have these injections at the [facility]. These injections did not help. She is currently on a muscle relaxant and steroid. She was told that she may need surgery. Given this information I do not believe she is a candidate for any further injections. She also received Suboxone in the past. She is not a candidate for any oral narcotics. She is asking for pain medicine today. I told her we cannot give her any pain medication however I have suggested ibuprofen and Tylenol. Have also suggested that she go back to see Dr. King for surgical evaluation. We will refer her back to Dr. King for surgical evaluation since she is failed injections previously that were given at the [facility]. Objective:: Alert and oriented x3 no acute distress. Patient is tender over the lower lumbar spine. She does have an antalgic gait. Motor strength of the lower extremities is 5/5. There is no gross sensory deficit. Assessment:: Degenerative disc disease of lumbar spine with lumbar radiculopathy symptoms. Plan:: We will refer her back to Dr. King for surgical evaluation since she is failed injections previously that were given at the [facility]. Pain Management Hx Components *Have you ever received a pneumonia vaccine?: No *Have you received a flu vaccine this season?: No - *Social History *Occupational Status:: other *Travel in the last 8 weeks: None
== END ==
PROVIDERS: Visit Provider Anesthesiology
DX: M51.16 Intervertebral disc disorders with radiculopathy, lumbar region (principal)
CPT/HCPCS: 99212

== ENCOUNTER → 2019-08-21 16:30 | Outpatient (CLI) | payer MEDICAID, SELFPAY ==
--- NOTE | 2019-08-21 16:48 | ECG_ITS ---
APPROVED REPORT Exam: Resting ECG HR:56 bpm ECG Measurements Heart Rate 56 AXES [place] 134 P 36 QRSd 80 QRS 49 QT 398 T 50 QTc 384 <Conclusion> Sinus bradycardia with sinus arrhythmia Otherwise normal ECG Electronically signed by : Ferny Camargo, 08/22/2019 17:39:48
[2019-08-21 16:55] LABS: Basophils % 0.5 % (0.1-2.0); Eosinophils # 0.2 K/mm3 (0.0-0.4); Eosinophils % 2.4 % (0.1-12.0); Hematocrit 46.1 % (37.0-47.0); Hemoglobin 13.8 g/dL (12.2-16.2); Lymphocytes # 1.7 K/mm3 (0.7-4.5); Mean Corpuscular Hemoglobin 29.8 pg (27.0-31.2); Mean Corpuscular Volume 99.4 fl (81-99); Mean Platelet Volume 8.6 fl (7.4-10.4); Monocytes # 0.2 K/mm3 (0.1-1.0); Monocytes % 3.6 % (1.7-9.3); Neutrophils # 4.4 K/mm3 (1.8-7.8); Neutrophils % 67.5 % (37.0-80.0); Platelet Count 306 K/mm3 (142-424); Red Blood Count 4.64 M/mm3 (4.20-5.40); Red Cell Distribution Width 12.5 % (11.5-17.5); White Blood Count 6.5 K/mm3 (4.8-10.8)
[2019-08-21 19:03] LABS: Anion Gap 16.3 mEq/L (5-15); Blood Urea Nitrogen 11 mg/dL (7-18); Calcium 9.3 mg/dL (8.5-10.1); Carbon Dioxide 28 mmol/L (21.0-32.0); Chloride 105 mmol/L (98-107); Creatinine,Serum 0.96 mg/dL (0.55-1.02); Estimated Glomerular Filt Rate 71 ml/min (>60); GFR (African American) 86 ML/MIN (>60); Glucose 120 mg/dL (74-106); Potassium 4.3 mmoL/L (3.5-5.1); Sodium 145 mmol/L (136-145)
== END ==
PROVIDERS: Visit Provider Otolaryngology
DX: Z01.818 Encounter for other preprocedural examination (principal); J03.90 Acute tonsillitis, unspecified; J03.01 Acute recurrent streptococcal tonsillitis
CPT/HCPCS: 36415; 80048; 85025; 93005

== ENCOUNTER → 2019-11-06 12:40 | Outpatient (CLI) | payer OTHER, SELFPAY | PROVIDERS: PCP Nurse Practitioner Family; Visit Provider Emergency Medicine | DX: M47.816 Spondylosis without myelopathy or radiculopathy, lumbar region (principal); M54.5 Low back pain; G89.29 Other chronic pain ==

== ENCOUNTER → 2019-11-20 13:32 | Outpatient (CLI) | payer OTHER, SELFPAY ==
[2019-11-20 17:25] LABS: Amphetamine/Metha Screen,Urine Negative ng/ml (<1000)
[2019-11-20 17:26] LABS: Barbiturates Screen,Urine Negative ng/ml (<200)
[2019-11-20 17:27] LABS: Benzodiazepines Screen,Urine Negative ng/ml (<200); Cannabinoid Screen,Urine Negative ng/ml (<50)
[2019-11-20 17:28] LABS: Cocaine Screen,Urine Negative ng/ml (<300)
[2019-11-20 17:29] LABS: Methadone Screen,Urine Negative ng/ml (<300); Opiate Screen,Urine Positive ng/ml (<300)
[2019-11-20 17:30] LABS: Phencyclidine Screen,Urine Negative ng/ml (<25)
== END ==
PROVIDERS: Visit Provider Emergency Medicine
DX: Z79.899 Other long term (current) drug therapy (principal); S21.002A Unspecified open wound of left breast, initial encounter
CPT/HCPCS: 80305; 87070; 87077; 87186; 87205

== ENCOUNTER → 2020-12-02 12:39 | Outpatient (CLI) | payer OTHER, SELFPAY ==
[2020-12-02 14:56] LABS: Coronavirus 19 IgG Antibody Positive (Negative); Coronavirus 19 IgM Antibody Negative (Negative)
== END ==
PROVIDERS: Visit Provider Emergency Medicine
DX: Z20.822 Contact with and (suspected) exposure to COVID-19 (principal)
CPT/HCPCS: 36415; 86328

== ENCOUNTER 2021-02-13 09:09 | Emergency (ER) | payer OTHER, SELFPAY ==
[2021-02-13 09:15] VITALS: BP 117/66; PULSE 79; RESP 20; TEMP 36.8; O2SAT 99; BMI 38.9
--- NOTE | 2021-02-13 09:24 | XR_ITS ---
CLINICAL INDICATION: fall, hip pain COMPARISON: CR PEL1V XR pelvis 1-2V from 08/10/2018 TECHNIQUE: FINDINGS: The bony structures are intact, well-aligned, and normally mineralized. The joint spaces are preserved. No soft tissue calcifications are noted. There are bilateral tubal ligation clips. There is some minimal sclerosis in the right aspect of the symphysis pubis nonspecific IMPRESSION: Negative right hip Dictated by: Dariusz Lennon MD 02/13/2021 09:59 Dariusz Lennon MD in OV 02/13/2021 09:59
--- NOTE | 2021-02-13 09:28 | HMH.EDUTC ---
[facility] [place] Clinical Impression: Hip pain Disposition: Home, Self-Care Condition on Discharge: Good Instructions: DI for Hip Pain, Help for Hip Pain Additional Instructions: *weight bearing as tolerated *RICE, Rest the extremity, Ice 15-20 minutes 3-4 times daily, Compress- wear the elvin wrap as discussed as much as possible to help reduce swelling and pain, Elevate the extremity when at rest *Elvin wrap is for support and help control swelling, use it except in the shower. Be sure that is not to tight but not to loose either *Elevate when resting this will help with pain and swelling *Ibuprofen every 6-8 hours as needed for pain an inflammation if you can take it or not allergic to it. If need something more can take Tylenol in between doses of Ibuprofen to help Immediately follow up with your family doctor for new or worsening of symptoms, or no noticeable improvement over the next 3-5 days Return if needed Straight to ER if any life threatening symptoms Referrals: Provider,Referral, MD [Primary Care Provider] - As needed Forms: Work/School Release Time of Disposition: 10:01 Medical Decision Making - Aram Inquiry Pt receiving controlled substance: No Aram was queried for this patient: No Vital Signs: 02/13/21 09:15 02/13/21 09:45 Temperature 98.2 F 98.2 F Temperature Source Oral Pulse Rate 79 Pulse Rate [Right Brachial] 79 Respiratory Rate 20 20 Blood Pressure 117/66 Blood Pressure [Right Arm] 117/66 Blood Pressure Mean [Right Arm] 83 Blood Pressure Source [Right Arm] Automatic Cuff Blood Pressure Position [Right Arm] Sitting 02 Sat by Pulse Oximetry 99 Oxygen Delivery Method Room Air Orders (Tests/Meds): ORDERS Category Date Time Status XR hip RT 2-3V w/pelvis Stat Exams 02/13/21 09:24 Taken - Radiology Data #1 Image(s): Hip Image Reviewed: Yes I have reviewed radiologist's interpretation Preliminary Findings: No Fracture Seen Negative right hip Medical Decision Narrative: Patient reports hysterectomy 2 yrs ago [facility] [place] HPI - General Stated complaint: rt hip pain due to fall 02/06 Time Seen by Provider: 02/13/21 09:28 Mode of Arrival: Ambulatory Source of Information: Patient Limitations: No Limitations Description of Symptoms (Recalled from Triage Doc. by RN): PATIENT REPORTS SHE FELL IN SHOWER 2 WEEKS AGO. SINCE THEN SHE HAS BEEN HAVING RIGHT HIP PAIN AND RIGHT LEG SWELLING. STATES HER LEG HAS BEEN GIVING OUT WHILE WALKING HEENT Symptoms (Recalled from RN notes): No Resp Symptoms (Recalled from RN notes): No Skin Symptoms (Recalled from RN notes): No MS Symptoms (Recalled from RN notes): Yes Functional Status (Recalled from RN notes): WNL - History of Present Illness Provider Complaint: Patient state that she fell in the shower 2 weeks ago and landed on her right side State that she has been having pain in her hip and right leg along with swelling at times in her right leg states that she was seen at [place] and they did xrays and told her nothing was broken but she has continued to have pain and feels like her leg is going to give out. - Related Data Home Medications Medication Instructions Recorded Confirmed gabapentin 100 mg tablet 100 mg PO TID 11/08/20 11/08/20 hydrocodone 5 mg-acetaminophen 325 1 tab PO TID PRN 11/08/20 11/08/20 mg tablet Previous Rx's Medication Instructions Recorded bisoprolol fumarate 5 mg tablet 5 mg PO DAILY #30 tab 09/04/20 buspirone 15 mg tablet 15 mg PO TID PRN #90 tab 11/08/20 duloxetine 30 mg capsule,delayed 30 mg PO DAILY #90 cap 11/08/20 release metaxalone 800 mg tablet 800 mg PO TID PRN #30 tab 11/08/20 methylprednisolone 4 mg tablets in See Rx Instructions PO PER PKG DIR 11/26/20 a dose pack #21 tab aspirin 81 mg tablet,delayed 81 mg PO DAILY #90 tab 12/13/20 release Allergies Allergy/AdvReac Type Severity Reaction Status Date / Time ketorolac [From TORADOL] Allergy Mild Verified 11/08/20 09:
[2021-02-13 09:45] VITALS: BP 117/66; PULSE 79; RESP 20; TEMP 36.8; O2SAT 99
== END 2021-02-13 10:11 | disposition home or self-care (01) ==
PROVIDERS: Emergency Provider Nurse Practitioner
DX: M25.551 Pain in right hip (principal); F41.8 Other specified anxiety disorders; I10 Essential (primary) hypertension; R00.2 Palpitations; F17.210 Nicotine dependence, cigarettes, uncomplicated
CPT/HCPCS: 73502; 99202; G0463

== ENCOUNTER 2021-03-18 19:01 | Emergency (ER) | payer OTHER, SELFPAY ==
[2021-03-18 19:41] VITALS: BP 00/00; PULSE 0; RESP 0; TEMP -17.7; TEMP 0
== END 2021-03-18 19:43 | disposition left against medical advice (07) ==
LOC: UTC 19:06
PROVIDERS: Emergency Provider Nurse Practitioner
DX: Z53.21 Procedure and treatment not carried out due to patient leaving prior to being seen by health care provider (principal)

== ENCOUNTER → 2022-06-19 16:04 | Outpatient (CLI) | payer OTHER, SELFPAY | PROVIDERS: PCP Family Medicine; Visit Provider Family Medicine | DX: N61.1 Abscess of the breast and nipple (principal); B96.89 Other specified bacterial agents as the cause of diseases classified elsewhere | CPT/HCPCS: 87070; 87077; 87186; 87205 ==

== ENCOUNTER → 2022-06-24 13:38 | Outpatient (CLI) | payer OTHER, SELFPAY ==
--- NOTE | 2022-06-24 13:39 | US_ITS ---
PROCEDURE INFORMATION: Exam: US Right Breast, Complete, Abscess Evaluation Exam date and time: 06/24/2022 1:57 PM Age: 27 years old Clinical indication: History of lower inner quadrant pain with drainage from the skin TECHNIQUE: Imaging protocol: Right Ultrasound of the breast with image documentation. All quadrants and retroareolar regions evaluated. Exam focused on the search and evaluation for abscess. Exam is an emergent request and a non-BIRADS study. COMPARISON: BR US BREAST-RT COMPLETE W/AXILLA 07/04/2015 1:58 PM FINDINGS: Breast: Focal skin thickening with hypoechoic ill-defined heterogeneity consistent with sebaceous cyst, probably an inflamed, are present as follows: 4 o'clock 6 cm from the nipple measured 1.4 x 0.2 by 1.2 cm 5 o'clock 6 cm from the nipple measuring 1.2 by 1.0 x 0.2 cm. Clinical correlation is recommended to confirm Anechoic horizontal circumscribed mass along the 12 o'clock axis 3 cm from the nipple is consistent with a 0.9 cm benign cyst No suspicious solid or cystic mass No axillary adenopathy IMPRESSION: No evidence of abscess. 4 o'clock and 5 o'clock intradermal complicated collection/apparent inflammation consistent with draining infected sebaceous cyst. Please clinically confirm.
== END ==
PROVIDERS: PCP Family Medicine; Visit Provider Family Medicine
DX: N61.1 Abscess of the breast and nipple (principal)
CPT/HCPCS: 76641

== ENCOUNTER → 2022-09-30 09:34 | Outpatient (CLI) | payer OTHER, SELFPAY ==
--- NOTE | 2022-09-30 09:39 | XR_ITS ---
FINAL REPORT CLINICAL HISTORY: pain right hip, s/p fall COMPARISON: 02/13/2021 FINDINGS: AP and frog leg views of the right hip with an AP pelvis were obtained. There is no acute fracture or dislocation. Joint space is preserved. Soft tissues are within normal limits. IMPRESSION: No acute osseous abnormality of the right hip. If pain persists, MR is recommended. Reviewed, Interpreted and Dictated by Kathleen Perdue MD Transcribed by Shalini Shen Authenticated and [facility]
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
== END ==
PROVIDERS: PCP Nurse Practitioner Family; Visit Provider Nurse Practitioner Family
DX: M79.671 Pain in right foot (principal); M25.571 Pain in right ankle and joints of right foot; M25.551 Pain in right hip
CPT/HCPCS: 73502; 73610; 73630

== ENCOUNTER → 2023-05-11 11:00 | Outpatient (CLI) | payer OTHER, SELFPAY ==
[2023-05-11 19:26] LABS: Barbiturates Screen,Urine Negative ng/ml (<200)
[2023-05-11 19:27] LABS: Amphetamine/Metha Screen,Urine Negative ng/ml (<1000); Benzodiazepines Screen,Urine Negative ng/ml (<200)
[2023-05-11 19:28] LABS: Cannabinoid Screen,Urine Negative ng/ml (<50)
[2023-05-11 19:29] LABS: Cocaine Screen,Urine Negative ng/ml (<300); Methadone Screen,Urine Negative ng/ml (<300)
[2023-05-11 19:30] LABS: Opiate Screen,Urine Negative ng/ml (<300)
[2023-05-11 19:31] LABS: Phencyclidine Screen,Urine Negative ng/ml (<25)
== END ==
PROVIDERS: PCP Emergency Medicine; Visit Provider Emergency Medicine
DX: F41.9 Anxiety disorder, unspecified (principal); Z79.899 Other long term (current) drug therapy
CPT/HCPCS: 80305

== ENCOUNTER → 2023-05-24 11:33 | Outpatient (CLI) | payer OTHER, SELFPAY ==
[2023-05-24 11:56] LABS: Basophils # 0.1 K/mm3 (0-0.2); Basophils % 0.7 % (0.1-2.0); Eosinophils # 0.2 K/mm3 (0.0-0.4); Eosinophils % 2.9 % (0.1-12.0); Hematocrit 50.1 % (37.0-47.0); Hemoglobin 15.5 g/dL (12.2-16.2); Lymphocytes # 2.8 K/mm3 (0.7-4.5); Lymphocytes % 36.5 % (10-50); Mean Corpuscular Hemoglobin 30.2 pg (27.0-31.2); Mean Corpuscular Volume 97.7 fl (81-99); Mean Platelet Volume 9.2 fl (7.4-10.4); Monocytes # 0.4 K/mm3 (0.1-1.0); Monocytes % 5.3 % (1.7-9.3); Neutrophils # 4.2 K/mm3 (1.8-7.8); Neutrophils % 54.7 % (37.0-80.0); Platelet Count 287 K/mm3 (142-424); Red Blood Count 5.13 M/mm3 (4.20-5.40); Red Cell Distribution Width 12.5 % (11.5-17.5); White Blood Count 7.6 K/mm3 (4.8-10.8)
[2023-05-24 12:10] LABS: Hemoglobin A1C 5.5 % (4.0-6.0)
[2023-05-24 12:39] LABS: Alanine Aminotransferase 24 U/L (12-78); Albumin Level 4.5 g/dl (3.5-5.0); Albumin/Globulin Ratio 1.6 (1.1-1.8); Alkaline Phosphatase 90 U/L (38-126); Anion Gap 14.5 mEq/L (5-15); Aspartate Amino Transferase 25 U/L (14-36); Bilirubin,Total 0.4 mg/dl (0.2-1.3); Blood Urea Nitrogen 14 mg/dl (7-17); Calcium 9.6 mg/dl (8.4-10.2); Carbon Dioxide 25 mmol/L (22.0-30.0); Chloride 106 mmol/L (98-107); Cholesterol 278 mg/dl (140-200); Estimated Glomerular Filt Rate 86 ml/min (>60); GFR (African American) 104 ML/MIN (>60); Globulin 2.9 g/dL (1.3-3.2); Glucose 102 mg/dl (74-100); HDL Cholesterol 69 mg/dl (40-60); Potassium 4.5 mmoL/L (3.5-5.1); Sodium 141 mmol/L (136-145); Total Protein,Serum 7.4 g/dl (6.3-8.2); Triglycerides 122 mg/dl (30-150); VLDL Cholesterol 24 mg/dL (0-40)
[2023-05-24 12:49] LABS: Total Iron Binding Capacity 331 ug/dL (265-497)
[2023-05-24 12:50] LABS: Direct LDL Cholesterol 150.64 mg/dL (100-129)
[2023-05-24 13:10] LABS: Thyroid Stimulating Hormone 4.54 uIU/mL (0.465-4.68)
[2023-05-24 13:56] LABS: Iron 93 ug/dL (37-170)
== END ==
LOC: LAB 11:33
PROVIDERS: PCP Emergency Medicine; Visit Provider Emergency Medicine
DX: Z00.00 Encounter for general adult medical examination without abnormal findings (principal); Z79.899 Other long term (current) drug therapy
CPT/HCPCS: 36415; 80053; 80061; 83036; 83540; 83550; 84443; 85025

== ENCOUNTER → 2023-07-05 06:35 | Outpatient (CLI) | payer OTHER, SELFPAY ==
[2023-07-05 21:47] LABS: Amphetamine/Metha Screen,Urine Negative ng/ml (<1000); Barbiturates Screen,Urine Negative ng/ml (<200)
[2023-07-05 21:49] LABS: Benzodiazepines Screen,Urine Negative ng/ml (<200); Cannabinoid Screen,Urine Negative ng/ml (<50)
[2023-07-05 21:50] LABS: Cocaine Screen,Urine Negative ng/ml (<300)
[2023-07-05 21:51] LABS: Methadone Screen,Urine Negative ng/ml (<300)
[2023-07-05 21:52] LABS: Opiate Screen,Urine Positive ng/ml (<300); Phencyclidine Screen,Urine Negative ng/ml (<25)
== END ==
PROVIDERS: PCP Emergency Medicine; Visit Provider Emergency Medicine
DX: F41.9 Anxiety disorder, unspecified (principal); N39.0 Urinary tract infection, site not specified
CPT/HCPCS: 80305; 87086

== ENCOUNTER → 2023-08-31 11:35 | Outpatient (CLI) | payer OTHER, SELFPAY ==
[2023-08-31 12:19] LABS: Barbiturates Screen,Urine Negative ng/ml (<200)
[2023-08-31 12:20] LABS: Amphetamine/Metha Screen,Urine Negative ng/ml (<1000)
[2023-08-31 12:23] LABS: Cocaine Screen,Urine Negative ng/ml (<300)
[2023-08-31 12:24] LABS: Cannabinoid Screen,Urine Negative ng/ml (<50); Phencyclidine Screen,Urine Negative ng/ml (<25)
[2023-08-31 12:25] LABS: Methadone Screen,Urine Negative ng/ml (<300)
[2023-08-31 12:26] LABS: Opiate Screen,Urine Positive ng/ml (<300)
[2023-08-31 12:40] LABS: Benzodiazepines Screen,Urine Negative ng/ml (<200)
== END ==
PROVIDERS: PCP Internal Medicine; Visit Provider Internal Medicine
DX: Z79.899 Other long term (current) drug therapy (principal)
CPT/HCPCS: 80305

== ENCOUNTER 2023-10-28 16:32 | Emergency (ER) | payer OTHER, SELFPAY ==
[2023-10-28 17:10] VITALS: BP 126/80; PULSE 71; RESP 18; TEMP 36.8; O2SAT 97; BMI 38.9
--- NOTE | 2023-10-28 17:25 | EXP.UTC ---
Discharge Plan Disposition Patient Disposition: Home, Self-Care Condition: Good Prescriptions Prescriptions: New cephalexin 500 mg capsule 500 mg PO QID Qty: 40 0RF mupirocin 2 % ointment 1 applic topical TID 7 Days Qty: 15 0RF sulfamethoxazole-trimethoprim [Bactrim DS] 800-160 mg Tablet 1 tab PO BID Qty: 20 0RF No Action hydrocodone-acetaminophen 5-325 mg tablet 1 tab PO BID PRN (Reason: pain) Qty: 60 0RF gabapentin 300 mg capsule 300 mg PO TID Qty: 90 0RF atorvastatin 10 mg tablet 10 mg PO HS Qty: 90 0RF bisoprolol fumarate 5 mg tablet See Rx Instructions .ROUTE .COMPLEX Qty: 30 1RF Dose Instruction: TAKE 1 TABLET BY MOUTH ONCE DAILY FOR HYPERTENSION -NEEDS FOLLOW UP APPOINTMENT FOR REFILLS- Rx Instructions: TAKE 1 TABLET BY MOUTH ONCE DAILY FOR HYPERTENSION -NEEDS FOLLOW UP APPOINTMENT FOR REFILLS- aspirin 81 mg tablet,delayed release (DR/EC) See Rx Instructions .ROUTE .COMPLEX Qty: 30 1RF Dose Instruction: TAKE 1 TABLET BY MOUTH DAILY FOR HEART HEALTH Rx Instructions: TAKE 1 TABLET BY MOUTH DAILY FOR HEART HEALTH Referrals Follow up/Referrals: Provider,Referral, MD [Primary Care Provider] - See instructions Activity Restrictions/Add. Instructions Additional Instructions/Restrictions: Keep the affected area clean and dry. Follow up with your regular doctor. Take the antibiotics as directed and apply the topical antibiotics as directed. Apply warm wet compresses to the affected area three or four times per day. GO TO THE ER FOR ANY WORSENING SYMPTOMS Clinical Impressions Clinical Impression: Abscess of skin of abdomen, Abscess of skin of breast Stand Alone Forms Stand Alone Forms: Work/School Release Instructions Patient Instructions: Boil Discharge ED Provider: Edward Bales [facility] General Stated complaint: painful red spots on abd Time Seen by Provider: 10/28/23 17:25 History of Present Illness Provider Complaint: She states that for the past 4 days she has had worsening boils on her right upper abdomen and beneath her right breast. She denies any fever/chills, but she states she has started to feel bad. Related Data Previous Rx's Medication Instructions Recorded atorvastatin 10 mg tablet 10 mg PO HS elevated cholesterol 07/05/23 #90 tabs bisoprolol fumarate 5 mg tablet See Rx Instructions .Route 08/31/23 .COMPLEX #30 tabs gabapentin 300 mg capsule 300 mg PO TID #90 caps 09/10/23 hydrocodone 5 mg-acetaminophen 325 1 tab PO BID PRN pain #60 tabs 09/10/23 mg tablet aspirin 81 mg tablet,delayed See Rx Instructions .Route 10/19/23 release .COMPLEX #30 tabs cephalexin 500 mg capsule 500 mg PO QID #40 caps 10/28/23 mupirocin 2 % topical ointment 1 applic topical TID 7 days #15 10/28/23 grams sulfamethoxazole 800 1 tab PO BID #20 tabs 10/28/23 mg-trimethoprim 160 mg tablet (Bactrim DS) Allergies Allergy/AdvReac Type Severity Reaction Status Date / Time buprenorphine [From Suboxone] Allergy Intermediate Vomiting Verified 09/10/23 15:51 naloxone [From Suboxone] Allergy Intermediate Vomiting Verified 09/10/23 15:51 ketorolac [From TORADOL] Allergy Mild Verified 09/10/23 15:51 tramadol [TRAMADOL] Allergy Mild Verified 09/10/23 15:51 diphenhydramine Allergy Unknown I-HIVES Verified 09/10/23 15:51 [From BENADRYL] [facility] Disclaimer: The information contained in this section may have been updated after the patient was seen, as this information can be updated by other users. Medical History Abdominal pain Abdominal pain of unknown etiology Acute right flank pain Atypical chest pain Back pain Bilious vomiting Cellulitis Chest pain Closed fracture of tuft of distal phalanx of finger Concussion without loss of consciousness Degenerative joint disease (DJD) of lumbar spine Dysfunctional uterine bleeding Dysmenorrhea Dyspnea Endometriosis Flank pain Foot callus Kidney stones Lumbar disc disease Menorrhagia Microhematuria Otitis externa Otitis media Ovarian cyst Palpitations Patient left without being seen Patient left without being seen Patient left without being seen Pelvic pain Postoperative abdominal pain Postoperative pain Renal colic on left side Right lower quadrant pain SOB (shortness of breath) Tachycardia Trichomonal cystitis Trichomonal vaginitis UTI (urinary tract infection) Vomiting Surgical History H/O hysterectomy with oophorectomy History of appendectomy History of cholecystectomy Hx of tonsillectomy S/P appendectomy S/P hysterectomy [place] teeth extracted Family History Mother Diabetes Hypertension Grandmother Cancer ovarian and breast Father Cancer Hypertension Diabetes Social History Smoking Status: Current every day smoker tobacco type: cigarettes packs per day: 1 alcohol intake: never counseling provided: none substance use type: denies use current occupational status: employed and other Travel in the last 8 weeks: None household members: spouse housing: house current occupational exposures/hazards: No caffeine: Yes ROS Obtained: Yes All systems reviewed & no additional complaints except as documented Constitutional Constitutional: Denies chills and Denies fever(s) Eyes Eyes: Denies eye discharge ENT Ears, Nose, Mouth, and Throat: Denies dizziness, Denies otalgia and Denies sore throat Cardiovascular Cardiovascular: Denies chest pain Respiratory Respiratory: Denies shortness of breath, Denies chest congestion, Denies cough, Denies stridor and Denies wheezing Gastrointestinal Gastrointestingal: Denies nausea or vomiting Musculoskeletal Musculoskeletal: Reports system reviewed and no additional complaints, except as documented and Denies arthralgias Integumentary/Breasts Skin/Breast: Reports as per HPI Neurologic Neurologic: Denies dizziness and Denies paresthesias Allergic/Immunologic Allergic/Immunologic: Denies wheezing Physical Exam General General appearance: alert and in no apparent distress Head Head exam: atraumatic, normocephalic and normal inspection Eye Eye exam: Present normal appearance, PERRL and EOMI ENT ENT exam: Present normal exam, normal oropharynx, mucous membranes moist, TM's normal bilaterally and normal external ear exam Neck Neck exam: Present normal inspection, full ROM and trachea midline; Absent meningismus or lymphadenopathy Chest Chest inspection: Present normal inspection and symmetric chest wall rise; Absent tenderness Respiratory Respiratory exam: Present normal lung sounds bilaterally; Absent respiratory distress Cardiovascular Cardiovascular exam: Present regular rate and normal rhythm; Absent JVD Abdominal Exam Abdominal exam: Present soft and normal bowel sounds; Absent distention, tenderness or guarding Extremities Exam Extremities exam: Present normal inspection, full ROM and normal capillary refill; Absent calf tenderness Back Exam Back exam: Present normal inspection; Absent tenderness Neurological Exam Neurological exam: Present alert and oriented X3 Psychiatric Psychiatric exam: Present normal affect and normal mood Skin Skin exam: Present other (there are 3 areas of redness on her right upper abdomen beneath her right breast, no induration, no open wound and no drainage. ) Lymphatic Lymphatic Findings: no adenopathy Medical Decision Making Medical Records Medical records reviewed: No I reviewed the patient's medical records. Aram Inquiry Pt receiving controlled substance: No
[2023-10-28 17:52] VITALS: BP 126/80; PULSE 71; RESP 18; TEMP 36.8; O2SAT 97
== END 2023-10-28 17:57 | disposition home or self-care (01) ==
PROVIDERS: Emergency Provider Nurse Practitioner Family
DX: L02.211 Cutaneous abscess of abdominal wall (principal); N61.1 Abscess of the breast and nipple; F17.210 Nicotine dependence, cigarettes, uncomplicated
CPT/HCPCS: 99212; 99214; G0463

== ENCOUNTER 2023-11-21 16:32 | Emergency (ER) | payer OTHER, SELFPAY ==
[2023-11-21 16:35] VITALS: BP 153/104; PULSE 85; RESP 20; TEMP 36.5; O2SAT 100; BMI 42.5
--- NOTE | 2023-11-21 16:44 | ED_ITS ---
<Statement entered by Sophy Campos MD - 11/21/23 18:07> I was consulted by the JOVANNY, and we discussed the complexity of the problems being addressed. I approved the treatment and management plan for this patient's care in the emergency department, thus performing a substantive portion of the medical decision making. Sophy Campos MD, SUZY, FACEP Discharge Plan Disposition Patient Disposition: Home, Self-Care Condition: Good Chief Complaint: Dental/Oral Prescriptions Prescriptions: No Action hydrocodone-acetaminophen 5-325 mg tablet 1 tab PO BID PRN (Reason: pain) Qty: 60 0RF gabapentin 300 mg capsule 300 mg PO TID Qty: 90 0RF atorvastatin 10 mg tablet 10 mg PO HS Qty: 90 0RF bisoprolol fumarate 5 mg tablet See Rx Instructions .ROUTE .COMPLEX Qty: 30 1RF Dose Instruction: TAKE 1 TABLET BY MOUTH ONCE DAILY FOR HYPERTENSION -NEEDS FOLLOW UP APPOINTMENT FOR REFILLS- Rx Instructions: TAKE 1 TABLET BY MOUTH ONCE DAILY FOR HYPERTENSION -NEEDS FOLLOW UP APPOINTMENT FOR REFILLS- aspirin 81 mg tablet,delayed release (DR/EC) See Rx Instructions .ROUTE .COMPLEX Qty: 30 1RF Dose Instruction: TAKE 1 TABLET BY MOUTH DAILY FOR HEART HEALTH Rx Instructions: TAKE 1 TABLET BY MOUTH DAILY FOR HEART HEALTH cephalexin 500 mg capsule 500 mg PO QID Qty: 40 0RF mupirocin 2 % ointment 1 applic topical TID 7 Days Qty: 15 0RF sulfamethoxazole-trimethoprim [Bactrim DS] 800-160 mg Tablet 1 tab PO BID Qty: 20 0RF Referrals Follow up/Referrals: Provider,Referral, [Primary Care Provider] - See instructions Activity Restrictions/Add. Instructions Additional Instructions/Restrictions: Please keep your dental appointment as scheduled on Wednesday. Return the emergency department for any complications including fever nausea vomiting etc. Clinical Impressions Clinical Impression: Infected dental caries, Avulsion fracture of tooth Discharge ED Provider: Sophy Campos General Adult HPI <AME Martínez - Last Filed: 11/21/23 17:17> General Chief complaint: Dental/Oral Stated complaint: right tooth pain Time Seen by Provider: 11/21/23 16:44 Mode of Arrival: Ambulatory Source of Information: Patient Limitations: No Limitations Description of Symptoms (Recalled from ER Triage Doc. by RN): r sided tooth pain. broken History of Present Illness HPI narrative: Patient presents for right upper premolar pain. Patient reports that she broke a tooth while eating on Wednesday and has been in significant amount of pain since. Patient was placed on Bactrim and opiates by dentist on Wednesday however patient ran out and presented to the emergency department for evaluation although she does have follow-up on Wednesday at a dentist in [place]. Related Data Previous Rx's Medication Instructions Recorded atorvastatin 10 mg tablet 10 mg PO HS elevated cholesterol 07/05/23 #90 tabs bisoprolol fumarate 5 mg tablet See Rx Instructions .Route 08/31/23 .COMPLEX #30 tabs gabapentin 300 mg capsule 300 mg PO TID #90 caps 09/10/23 hydrocodone 5 mg-acetaminophen 325 1 tab PO BID PRN pain #60 tabs 09/10/23 mg tablet aspirin 81 mg tablet,delayed See Rx Instructions .Route 10/19/23 release .COMPLEX #30 tabs cephalexin 500 mg capsule 500 mg PO QID #40 caps 10/28/23 mupirocin 2 % topical ointment 1 applic topical TID 7 days #15 10/28/23 grams sulfamethoxazole 800 1 tab PO BID #20 tabs 10/28/23 mg-trimethoprim 160 mg tablet (Bactrim DS) Allergies Allergy/AdvReac Type Severity Reaction Status Date / Time buprenorphine [From Suboxone] Allergy Intermediate Vomiting Verified 09/10/23 15:51 naloxone [From Suboxone] Allergy Intermediate Vomiting Verified 09/10/23 15:51 ketorolac [From TORADOL] Allergy Mild Verified 09/10/23 15:51 tramadol [TRAMADOL] Allergy Mild Verified 09/10/23 15:51 diphenhydramine Allergy Unknown I-HIVES Verified 09/10/23 15:51 [From BENADRYL] [facility] <AME Martínez - Last Filed: 11/21/23 17:17> [facility] Disclaimer: The information contained in this section may have been updated after the patient was seen, as this information can be updated by other users. Medical History Abdominal pain Abdominal pain of unknown etiology Acute right flank pain Atypical chest pain Back pain Bilious vomiting Cellulitis Chest pain Closed fracture of tuft of distal phalanx of finger Concussion without loss of consciousness Degenerative joint disease (DJD) of lumbar spine Dysfunctional uterine bleeding Dysmenorrhea Dyspnea Endometriosis Flank pain Foot callus Kidney stones Lumbar disc disease Menorrhagia Microhematuria Otitis externa Otitis media Ovarian cyst Palpitations Patient left without being seen Patient left without being seen Patient left without being seen Pelvic pain Postoperative abdominal pain Postoperative pain Renal colic on left side Right lower quadrant pain SOB (shortness of breath) Tachycardia Trichomonal cystitis Trichomonal vaginitis UTI (urinary tract infection) Vomiting Surgical History H/O hysterectomy with oophorectomy History of appendectomy History of cholecystectomy Hx of tonsillectomy S/P appendectomy S/P hysterectomy [place] teeth extracted Family History Mother Diabetes Hypertension Grandmother Cancer ovarian and breast Father Cancer Hypertension Diabetes Social History Smoking Status: Current every day smoker tobacco type: cigarettes packs per day: 1 alcohol intake: never counseling provided: none substance use type: denies use current occupational status: employed and other Travel in the last 8 weeks: None household members: spouse housing: house current occupational exposures/hazards: No caffeine: Yes <AME Martínez - Last Filed: 11/21/23 17:17> ROS Obtained: Yes Systems reviewed as appropriate & no additional complaints except as documented Physical Exam <AME Martínez - Last Filed: 11/21/23 17:17> General General appearance: alert and in no apparent distress Head Head exam: atraumatic and normal inspection Eye Eye exam: Present normal appearance, PERRL and EOMI ENT ENT exam: Present other (Patient has extensive dental caries and already has multiple previous tooth extractions. In the right side upper premolars there is a partially broken tooth no current evidence of abscess on palpation or v isualization including redness or bleeding.) Neck Neck exam: Present normal inspection; Absent lymphadenopathy Respiratory Respiratory exam: Present normal lung sounds bilaterally Cardiovascular Cardiovascular exam: Present regular rate and normal rhythm Neurological Exam Neurological exam: Present alert, oriented X3 and CN II-XII intact Skin Skin exam: Present warm, dry and normal color Medical Decision Making <AME Martínez - Last Filed: 11/21/23 17:17> Aram Inquiry Pt receiving controlled substance: No Vital Signs: 11/21/23 16:35 Temperature 97.7 F Temperature Source Oral Pulse Rate [Right Radial] 85 Respiratory Rate 20 Blood Pressure [Right Arm] 153/104 H Blood Pressure Mean [Right Arm] 120 02 Sat by Pulse Oximetry 100 Oxygen Delivery Method Room Air Medical Decision Narrative: In summary patient is a 28-year-old female who presents to the emergency department for evaluation of dental pain. Patient is hemodynamically stable upon arrival, afebrile. Physical exam is remarkable for extensive dental caries with previously extracted teeth and a current partially avulsed right-sided upper premolar. Differential diagnosis includes abscess versus simple avulsion fracture. Patient was offered dental block which she accepted was performed by Dr. Campos. Patient given a prescription for Augmentin and given this was discharged home with instructions to follow-up with her already established dental appointment on Wednesday. <Sophy Campos MD - Last Filed: 11/21/23 17:12> Vital Signs: 11/21/23 16:35 Temperature 97.7 F Temperature Source Oral Pulse Rate [Right Radial] 85 Respiratory Rate 20 Blood Pressure [Right Arm] 153/104 H Blood Pressure Mean [Right Arm] 120 02 Sat by Pulse Oximetry 100 Oxygen Delivery Method Room Air Procedures <Sophy Campos MD - Last Filed: 11/21/23 17:12> Nerve Block Nerve Block 1: Time out performed: Yes Local Anesthetic: lidocaine 1% and bupivacaine 0.5% Amount of anesthesia used (mL): 5 (Mixed one-to-one) Side: Right Intraoral Nerve Block: infraorbital Procedure Successful: Yes Patient Tolerated Procedure: well Complications: none Critical Care <AME Martínez - Last Filed: 11/21/23 17:17> Critical Care Time Critical Care Time: No
--- NOTE | 2023-11-21 16:48 | PC.NURSE ---
pt to restroom
[2023-11-21 17:19] VITALS: BP 150/98; PULSE 80; RESP 18; TEMP 36.5; O2SAT 100
[2023-11-21 17:22] VITALS: BP 142/89; PULSE 88; RESP 14; TEMP 36.5
== END 2023-11-21 17:22 | disposition home or self-care (01) ==
PROVIDERS: Emergency Provider Student in an Organized Health Care Education/Training Program
DX: F17.210 Nicotine dependence, cigarettes, uncomplicated; K03.81 Cracked tooth
CPT/HCPCS: 64400; 99283

== ENCOUNTER 2024-01-09 18:26 | Emergency (ER) | payer SELFPAY ==
[2024-01-09 18:34] VITALS: BP 126/77; PULSE 71; RESP 16; TEMP 36.6; O2SAT 99; BMI 42.5
--- NOTE | 2024-01-09 18:44 | HMH.EDGENADL ---
Discharge Plan Disposition Patient Disposition: Home, Self-Care Condition: Fair Prescriptions Prescriptions: New oxycodone 5 mg tablet 5 mg PO Q6H PRN (Reason: pain) Qty: 10 0RF No Action hydrocodone-acetaminophen 5-325 mg tablet 1 tab PO BID PRN (Reason: pain) Qty: 60 0RF gabapentin 300 mg capsule 300 mg PO TID Qty: 90 0RF atorvastatin 10 mg tablet 10 mg PO HS Qty: 90 0RF aspirin 81 mg tablet,delayed release (DR/EC) See Rx Instructions .ROUTE .COMPLEX Qty: 30 1RF Dose Instruction: TAKE 1 TABLET BY MOUTH DAILY FOR HEART HEALTH Rx Instructions: TAKE 1 TABLET BY MOUTH DAILY FOR HEART HEALTH bisoprolol fumarate 5 mg tablet See Rx Instructions .ROUTE .COMPLEX Qty: 90 3RF Dose Instruction: TAKE 1 TABLET BY MOUTH ONCE DAILY FOR HYPERTENSION -NEEDS FOLLOW UP APPOINTMENT FOR REFILLS- Rx Instructions: TAKE 1 TABLET BY MOUTH ONCE DAILY FOR HYPERTENSION cephalexin 500 mg capsule 500 mg PO QID Qty: 40 0RF mupirocin 2 % ointment 1 applic topical TID 7 Days Qty: 15 0RF sulfamethoxazole-trimethoprim [Bactrim DS] 800-160 mg Tablet 1 tab PO BID Qty: 20 0RF amoxicillin-pot clavulanate 875-125 mg tablet 1 tab PO BID Qty: 20 0RF Referrals Follow up/Referrals: Gary Flanagan MD [Primary Care Provider] - See instructions Activity Restrictions/Add. Instructions Additional Instructions/Restrictions: Follow up with dentist on Wednesday as scheduled. You do not require drainage of a dental infection right now, however return if you have worsened swelling, inability to eat or swallow, or difficulty breathing. Continue your oral antibiotics. Clinical Impressions Clinical Impression: Infected dental caries Instructions Patient Instructions: DI for Tooth Decay, DI for Dental Pain Discharge ED Provider: Yesenia Donald General Adult HPI General Chief complaint: Dental/Oral Stated complaint: Abcess on bottom right side of jaw Time Seen by Provider: 01/09/24 18:38 Mode of Arrival: Ambulatory Source of Information: Patient Limitations: No Limitations Description of Symptoms (Recalled from ER Triage Doc. by RN): pt c/o R lower dental pain. pt reports she has been on augmentin x7d. pt has taken ibuprofen and diclofenac 3h ago. pt took a hydrocodone and tylenol 6h ago. pt reports she has a dentist appointment on Wednesday. However, pt is unable to get any pain relief. pt states her pain is 8/10 and sharp in nature. History of Present Illness HPI narrative: 28-year-old female with history of dental caries presents with persistent tooth pain for the past 10 days. 7 days ago she started Bactrim but had minimal improvement so has been switched to Augmentin. She is concerned that her right lower molars are continuing to worsen despite taking antibiotics. No increased swelling, difficulty swallowing, voice changes, face swelling, or other concerns. Related Data Previous Rx's Medication Instructions Recorded atorvastatin 10 mg tablet 10 mg PO HS elevated cholesterol 07/05/23 #90 tabs gabapentin 300 mg capsule 300 mg PO TID #90 caps 09/10/23 hydrocodone 5 mg-acetaminophen 325 1 tab PO BID PRN pain #60 tabs 09/10/23 mg tablet aspirin 81 mg tablet,delayed See Rx Instructions .Route 10/19/23 release .COMPLEX #30 tabs cephalexin 500 mg capsule 500 mg PO QID #40 caps 10/28/23 mupirocin 2 % topical ointment 1 applic topical TID 7 days #15 10/28/23 grams sulfamethoxazole 800 1 tab PO BID #20 tabs 10/28/23 mg-trimethoprim 160 mg tablet (Bactrim DS) amoxicillin 875 mg-potassium 1 tab PO BID #20 tabs 11/21/23 clavulanate 125 mg tablet bisoprolol fumarate 5 mg tablet See Rx Instructions .Route 12/13/23 .COMPLEX #90 tabs oxycodone 5 mg tablet 5 mg PO Q6H PRN pain #10 tabs 01/09/24 Allergies Allergy/AdvReac Type Severity Reaction Status Date / Time buprenorphine [From Suboxone] Allergy Intermediate Vomiting Verified 01/09/24 18:41 naloxone [From Suboxone] Allergy Intermediate Vomiting Verified 01/09/24 18:41 ketorolac [From TORADOL] Allergy Mild Verified 01/09/24 18:41 tramadol [TRAMADOL] Allergy Mild Verified 01/09/24 18:41 diphenhydramine Allergy Unknown I-HIVES Verified 01/09/24 18:41 [From BENADRYL] [facility] Disclaimer: The information contained in this section may have been updated after the patient was seen, as this information can be updated by other users. Medical History Kidney stones Patient left without being seen Postoperative pain Otitis media Abdominal pain Foot callus Cellulitis Patient left without being seen Trichomonal vaginitis Postoperative abdominal pain Dysmenorrhea Menorrhagia Right lower quadrant pain Dysfunctional uterine bleeding Flank pain Palpitations SOB (shortness of breath) Concussion without loss of consciousness Microhematuria Acute right flank pain Degenerative joint disease (DJD) of lumbar spine Patient left without being seen Otitis externa Lumbar disc disease Tachycardia Back pain Dyspnea Chest pain Atypical chest pain Ovarian cyst Trichomonal cystitis Abdominal pain of unknown etiology Bilious vomiting Vomiting Closed fracture of tuft of distal phalanx of finger Pelvic pain UTI (urinary tract infection) Renal colic on left side Endometriosis Surgical History Hx of tonsillectomy History of cholecystectomy History of appendectomy H/O hysterectomy with oophorectomy [place] teeth extracted S/P appendectomy S/P hysterectomy Family History Mother Diabetes Hypertension Grandmother Cancer Father Cancer Hypertension Diabetes Social History Smoking Status: Current every day smoker tobacco type: cigarettes packs per day: 1 alcohol intake: never counseling provided: none substance use type: denies use current occupational status: employed and other Travel in the last 8 weeks: None household members: spouse housing: house current occupational exposures/hazards: No caffeine: Yes ROS Obtained: Yes All systems reviewed & no additional complaints except as documented Physical Exam General General appearance: alert and in no apparent distress Head Head exam: atraumatic, normocephalic and normal inspection Eye Eye exam: Present normal appearance, PERRL and EOMI ENT ENT exam: Present normal exam, mucous membranes moist, TM's normal bilaterally, normal external ear exam and other (Poor dentition, extensive caries. No gum swelling, no signs of abscess or purulence.) Neck Neck exam: Present normal inspection, full ROM and trachea midline; Absent meningismus or lymphadenopathy Chest Chest inspection: Present normal inspection and symmetric chest wall rise; Absent tenderness Respiratory Respiratory exam: Present normal lung sounds bilaterally; Absent respiratory distress Cardiovascular Cardiovascular exam: Present regular rate and normal rhythm; Absent JVD Abdominal Exam Abdominal exam: Present soft and normal bowel sounds; Absent distention, tenderness or guarding Extremities Exam Extremities exam: Present normal inspection, full ROM and normal capillary refill; Absent calf tenderness Back Exam Back exam: Present normal inspection; Absent tenderness Neurological Exam Neurological exam: Present alert and oriented X3 Psychiatric Psychiatric exam: Present normal affect and normal mood Skin Skin exam: Present warm, dry, intact and normal color Lymphatic Lymphatic Findings: no adenopathy Medical Decision Making Aram Inquiry Pt receiving controlled substance: Yes rAam was queried for this patient: Yes Risks and benefits of using a controlled substance: were discussed with pt by me Vital Signs: 01/09/24 18:34 01/09/24 18:58 Temperature 97.9 F 97.9 F Temperature Source Oral Pulse Rate 71 Pulse Rate [Left] 71 Respiratory Rate 16 16 Blood Pressure 126/77 Blood Pressure [Right Arm] 126/77 Blood Pressure Mean [Right Arm] 93 Blood Pressure Source [Right Arm] Automatic Cuff Blood Pressure Position [Right Arm] Sitting 02 Sat by Pulse Oximetry 99 Oxygen Delivery Method Room Air Orders (Tests/Meds): ED MEDICATIONS Discontinued Medications Generic Name Dose Route Start Last Admin Trade Name Freq PRN Reason Stop Dose Admin Oxycodone HCl 5 mg 01/09/24 18:44 01/09/24 19:01 Oxycodone 5mg Immediate Release Tablet PO 01/09/24 18:45 5 mg ONCE ONE Administration Medical Decision Narrative: Considered multiple causes of patient's right lower molar dental pain including caries, tooth fracture, abscess, among others. Based on history and physical exam patient does not seem to have signs of abscess and is already on Augmentin which should be an appropriate antibiotic but likely has persistent pain due to her extensive dental caries. Patient has an appointment with her dentist in 2 days however given her severe pain requires additional pain medications beyond Tylenol and ibuprofen. I offered her a dental nerve block but she declined due to fear of needles so I prescribed 2.5 days of oxycodone and provided instructions, return precautions, and precautions regarding opioids. Patient is comfortable with this plan. Critical Care Critical Care Time Critical Care Time: No
[2024-01-09 18:58] VITALS: BP 126/77; PULSE 71; RESP 16; TEMP 36.6
[2024-01-09] MEDS: OXYCODONE 5MG IMMEDIATE RELEASE TABLET 5 MG PO (19:01)
== END 2024-01-09 19:06 | disposition home or self-care (01) ==
PROVIDERS: Emergency Provider Emergency Medicine; PCP Family Medicine
DX: K02.9 Dental caries, unspecified (principal); F17.210 Nicotine dependence, cigarettes, uncomplicated
CPT/HCPCS: 99283

== ENCOUNTER 2024-01-11 17:52 | Emergency (ER) | payer SELFPAY ==
[2024-01-11 17:53] VITALS: BP 126/84; PULSE 87; RESP 20; TEMP 36.8; O2SAT 98; BMI 42.5
--- NOTE | 2024-01-11 17:54 | ED_ITS ---
Discharge Plan Disposition Patient Disposition: Home, Self-Care Prescriptions Prescriptions: No Action hydrocodone-acetaminophen 5-325 mg tablet 1 tab PO BID PRN (Reason: pain) Qty: 60 0RF gabapentin 300 mg capsule 300 mg PO TID Qty: 90 0RF atorvastatin 10 mg tablet 10 mg PO HS Qty: 90 0RF aspirin 81 mg tablet,delayed release (DR/EC) See Rx Instructions .ROUTE .COMPLEX Qty: 30 1RF Dose Instruction: TAKE 1 TABLET BY MOUTH DAILY FOR HEART HEALTH Rx Instructions: TAKE 1 TABLET BY MOUTH DAILY FOR HEART HEALTH bisoprolol fumarate 5 mg tablet See Rx Instructions .ROUTE .COMPLEX Qty: 90 3RF Dose Instruction: TAKE 1 TABLET BY MOUTH ONCE DAILY FOR HYPERTENSION -NEEDS FOLLOW UP APPOINTMENT FOR REFILLS- Rx Instructions: TAKE 1 TABLET BY MOUTH ONCE DAILY FOR HYPERTENSION cephalexin 500 mg capsule 500 mg PO QID Qty: 40 0RF mupirocin 2 % ointment 1 applic topical TID 7 Days Qty: 15 0RF sulfamethoxazole-trimethoprim [Bactrim DS] 800-160 mg Tablet 1 tab PO BID Qty: 20 0RF amoxicillin-pot clavulanate 875-125 mg tablet 1 tab PO BID Qty: 20 0RF oxycodone 5 mg tablet 5 mg PO Q6H PRN (Reason: pain) Qty: 10 0RF Referrals Follow up/Referrals: Gary Flanagan MD [Primary Care Provider] - See instructions Activity Restrictions/Add. Instructions Additional Instructions/Restrictions: Continue to take Tylenol and ibuprofen and topical anesthetic ointment as discussed. You are offered a dental block and you refused this. If you change her mind you may return to the emergency department. Opiates are not indicated in this particular situation from an emergency standpoint. Please continue your oral antibiotics that you are prescribed recently and follow-up with your dentist as previously instructed. Clinical Impressions Clinical Impression: Pain, dental Discharge ED Provider: Sophy Campos General Adult HPI <AME Martínez - Last Filed: 01/11/24 17:54> General Stated complaint: dental pain Time Seen by Provider: 01/11/24 17:54 Related Data Previous Rx's Medication Instructions Recorded atorvastatin 10 mg tablet 10 mg PO HS elevated cholesterol 07/05/23 #90 tabs gabapentin 300 mg capsule 300 mg PO TID #90 caps 09/10/23 hydrocodone 5 mg-acetaminophen 325 1 tab PO BID PRN pain #60 tabs 09/10/23 mg tablet aspirin 81 mg tablet,delayed See Rx Instructions .Route 10/19/23 release .COMPLEX #30 tabs cephalexin 500 mg capsule 500 mg PO QID #40 caps 10/28/23 mupirocin 2 % topical ointment 1 applic topical TID 7 days #15 10/28/23 grams sulfamethoxazole 800 1 tab PO BID #20 tabs 10/28/23 mg-trimethoprim 160 mg tablet (Bactrim DS) amoxicillin 875 mg-potassium 1 tab PO BID #20 tabs 11/21/23 clavulanate 125 mg tablet bisoprolol fumarate 5 mg tablet See Rx Instructions .Route 12/13/23 .COMPLEX #90 tabs oxycodone 5 mg tablet 5 mg PO Q6H PRN pain #10 tabs 01/09/24 Allergies Allergy/AdvReac Type Severity Reaction Status Date / Time buprenorphine [From Suboxone] Allergy Intermediate Vomiting Verified 01/09/24 18:41 naloxone [From Suboxone] Allergy Intermediate Vomiting Verified 01/09/24 18:41 ketorolac [From TORADOL] Allergy Mild Verified 01/09/24 18:41 tramadol [TRAMADOL] Allergy Mild Verified 01/09/24 18:41 diphenhydramine Allergy Unknown I-HIVES Verified 01/09/24 18:41 [From BENADRYL] <Sophy Campos MD - Last Filed: 01/11/24 18:23> History of Present Illness HPI narrative: Patient is a 28-year-old female presents today with right mandibular molar dental pain. This has been ongoing for several days she was here 2 days ago was given oxycodone by one of our emergency medicine providers and she returns with worsening pain. She claims that she is been taking Tylenol and ibuprofen and topical anesthetic ointment without any improvement. She also claims that she has significant swelling. She has a appoint with her dentist soon. [facility] <AME Martínez - Last Filed: 01/11/24 17:54> [facility] Disclaimer: The information contained in this section may have been updated after the patient was seen, as this information can be updated by other users. Medical History Kidney stones Patient left without being seen Postoperative pain Otitis media Abdominal pain Foot callus Cellulitis Patient left without being seen Trichomonal vaginitis Postoperative abdominal pain Dysmenorrhea Menorrhagia Right lower quadrant pain Dysfunctional uterine bleeding Flank pain Palpitations SOB (shortness of breath) Concussion without loss of consciousness Microhematuria Acute right flank pain Degenerative joint disease (DJD) of lumbar spine Patient left without being seen Otitis externa Lumbar disc disease Tachycardia Back pain Dyspnea Chest pain Atypical chest pain Ovarian cyst Trichomonal cystitis Abdominal pain of unknown etiology Bilious vomiting Vomiting Closed fracture of tuft of distal phalanx of finger Pelvic pain UTI (urinary tract infection) Renal colic on left side Endometriosis Surgical History Hx of tonsillectomy History of cholecystectomy History of appendectomy H/O hysterectomy with oophorectomy [place] teeth extracted S/P appendectomy S/P hysterectomy Family History Mother Diabetes Hypertension Grandmother Cancer Father Cancer Hypertension Diabetes Social History Smoking Status: Current every day smoker tobacco type: cigarettes packs per day: 1 alcohol intake: never counseling provided: none substance use type: denies use current occupational status: employed and other Travel in the last 8 weeks: None household members: spouse housing: house current occupational exposures/hazards: No caffeine: Yes <AME Martínez - Last Filed: 01/11/24 17:54> ROS Obtained: Yes Systems reviewed as appropriate & no additional complaints except as documented Physical Exam <AME Martínez - Last Filed: 01/11/24 17:54> General General appearance: alert and in no apparent distress Head Head exam: atraumatic and normal inspection Eye Eye exam: Present normal appearance, PERRL and EOMI ENT ENT exam: Present normal exam, normal oropharynx and mucous membranes moist Neck Neck exam: Present normal inspection, full ROM and trachea midline; Absent lymphadenopathy Chest Chest inspection: Present normal inspection and symmetric chest wall rise Respiratory Respiratory exam: Present normal lung sounds bilaterally; Absent accessory muscle use Cardiovascular Cardiovascular exam: Present regular rate, normal rhythm, normal heart sounds, +S1 and +S2 Abdominal Exam Abdominal exam: Present soft and normal bowel sounds; Absent tenderness, guarding or rebound Extremities Exam Extremities exam: Present normal inspection and full ROM Neurological Exam Neurological exam: Present alert, oriented X3 and CN II-XII intact Psychiatric Psychiatric exam: Present normal affect and normal mood Skin Skin exam: Present warm, dry and normal color Lymphatic Lymphatic Findings: no adenopathy <Sophy Campos MD - Last Filed: 01/11/24 18:23> ENT ENT exam: Present other (Right mandibular molar slightly erythematous very mild amount of swelling in the gingiva no significant necrosis or soft tissue swelling in the face or neck she is tolerating secretions well no trismus no soft tissue swelling or asymmetry in the soft tissue or palate) Medical Decision Making <AME Martínez - Last Filed: 01/11/24 17:54> Medical Decision Narrative: In summary patient is a [age, sex] who presents to the emergency department for evaluation of [complaint]. Patient is [hemodynamically stable/unstable] upon arrival, [febrile/afebrile]. [Unremarkable physical exam, nonfocal exam versus focal remarkable exam]. Differential diagnosis includes [DDx]. Initial workup will be conducted with [hematologic labs, imaging, respiratory swab, describe workup]. Initial interventions include [crystalloid bolus, medications, p.o. challenge, etc.] initial workup reviewed by me [hematologic labs are remarkable for... Imaging remarkable for... Urinalysis remarkable for]. Upon repeat evaluation [patient had acceptable resolution of symptoms, had persistent pain for which additional interventions were conducted (describe interventions), tolerated p.o., was ambulatory, etc.]. Given this [patient is appropriate for discharge at this time and will be discharged with a prescription for... The case was discussed with hospital medicine regarding management and they will admit the patient their service for continued evaluation at this time... Etc.] Places where you can increase complexity: I informally interpreted the patient's chest x-ray or CT read and is remarkable for... Documenting what the ekg monitor tech shows with rate and rhythm Consideration of test but deferring. Ex: I considered chest x-ray on this patient however given that they have no oxygen requirement and are clear to auscultation all lung mc will be deferred. Social determinants of health: Given that patient is undomiciled increases complexity. Given that patient has polysubstance abuse compounds all aspects of care <Sophy Campos MD - Last Filed: 01/11/24 18:23> Aram Inquiry Pt receiving controlled substance: No Medical Decision Narrative: Well-appearing 28-year-old female with dental pain. Her exam is largely unremarkable definitely no evidence of any significant facial cellulitis or soft tissue abscess that would require oral surgery. No indication for any CT imaging. She is already on Augmentin. We told her we would not be giving her any further opiates for this in the emergency department and feel that they are not necessary from a safety standpoint. She is been advised to take Tylenol and ibuprofen we offered her dental balls as well as a dental block which she refused. After not being offered further opiates she was very unhappy requesting her discharge paperwork and was discharged. I strongly encouraged that she follow-up with her dentist and if she changes her mind regarding any type of symptomatic management in the emergency department such as a dental block she may return. Critical Care <Sophy Campos MD - Last Filed: 01/11/24 18:23> Critical Care Time Critical Care Time: No
[2024-01-11 18:30] VITALS: BP 112/78; PULSE 75; RESP 18; TEMP 36.8; O2SAT 98
--- NOTE | 2024-01-11 19:01 | PC.NURSE ---
Pt's family is getting pt dinner from [employer], and she left her phone number [phone]
== END 2024-01-11 19:09 | disposition home or self-care (01) ==
PROVIDERS: Emergency Provider Student in an Organized Health Care Education/Training Program; PCP Family Medicine
DX: K08.89 Other specified disorders of teeth and supporting structures (principal); F17.210 Nicotine dependence, cigarettes, uncomplicated
CPT/HCPCS: 99282

== ENCOUNTER 2024-02-06 03:43 | Emergency (ER) | payer SELFPAY ==
[2024-02-06 03:44] VITALS: BP 137/96; PULSE 84; RESP 18; TEMP 36.9; O2SAT 99; BMI 38.9
--- NOTE | 2024-02-06 04:06 | ED_ITS ---
Discharge Plan Disposition Patient Disposition: Home, Self-Care Prescriptions Prescriptions: New amoxicillin-pot clavulanate 875-125 mg tablet 1 tab PO BID Qty: 10 0RF No Action hydrocodone-acetaminophen 5-325 mg tablet 1 tab PO BID PRN (Reason: pain) Qty: 60 0RF gabapentin 300 mg capsule 300 mg PO TID Qty: 90 0RF atorvastatin 10 mg tablet 10 mg PO HS Qty: 90 0RF aspirin 81 mg tablet,delayed release (DR/EC) See Rx Instructions .ROUTE .COMPLEX Qty: 30 1RF Dose Instruction: TAKE 1 TABLET BY MOUTH DAILY FOR HEART HEALTH Rx Instructions: TAKE 1 TABLET BY MOUTH DAILY FOR HEART HEALTH bisoprolol fumarate 5 mg tablet See Rx Instructions .ROUTE .COMPLEX Qty: 90 3RF Dose Instruction: TAKE 1 TABLET BY MOUTH ONCE DAILY FOR HYPERTENSION -NEEDS FOLLOW UP APPOINTMENT FOR REFILLS- Rx Instructions: TAKE 1 TABLET BY MOUTH ONCE DAILY FOR HYPERTENSION cephalexin 500 mg capsule 500 mg PO QID Qty: 40 0RF mupirocin 2 % ointment 1 applic topical TID 7 Days Qty: 15 0RF sulfamethoxazole-trimethoprim [Bactrim DS] 800-160 mg Tablet 1 tab PO BID Qty: 20 0RF amoxicillin-pot clavulanate 875-125 mg tablet 1 tab PO BID Qty: 20 0RF oxycodone 5 mg tablet 5 mg PO Q6H PRN (Reason: pain) Qty: 10 0RF Referrals Follow up/Referrals: Gary Flanagan MD [Primary Care Provider] - See instructions Activity Restrictions/Add. Instructions Additional Instructions/Restrictions: At this time is felt you are safe to be discharged home. If new or worsening symptoms please not hesitate to return the emergency department. Please use your dental balls once every 3 hours as needed, do not swallow them. Please take antibiotics as prescribed and follow-up with your dentist within the next 1 week. Clinical Impressions Clinical Impression: Fracture of tooth, Dental caries Discharge ED Provider: Tommie Masters General Adult HPI General Chief complaint: Dental/Oral Stated complaint: broken tooth Time Seen by Provider: 02/06/24 03:44 Mode of Arrival: Ambulatory Source of Information: Patient Limitations: No Limitations Description of Symptoms (Recalled from ER Triage Doc. by RN): Pt presents with bottom tooth pain after it broke off. History of Present Illness HPI narrative: Patient is a 28-year-old female with no pertinent past medical history presents emergency department for evaluation of tooth trauma. History is obtained by patient at bedside, patient was playing pickup basketball at 3 in the morning for unknown reasons when she took a basketball to her lower teeth, she then took a piece of tooth and put it in her cigarette cellophane wrapper presents here for continued evaluation. No other traumatic injuries at this time. Related Data Previous Rx's Medication Instructions Recorded atorvastatin 10 mg tablet 10 mg PO HS elevated cholesterol 07/05/23 #90 tabs gabapentin 300 mg capsule 300 mg PO TID #90 caps 09/10/23 hydrocodone 5 mg-acetaminophen 325 1 tab PO BID PRN pain #60 tabs 09/10/23 mg tablet aspirin 81 mg tablet,delayed See Rx Instructions .Route 10/19/23 release .COMPLEX #30 tabs cephalexin 500 mg capsule 500 mg PO QID #40 caps 10/28/23 mupirocin 2 % topical ointment 1 applic topical TID 7 days #15 10/28/23 grams sulfamethoxazole 800 1 tab PO BID #20 tabs 10/28/23 mg-trimethoprim 160 mg tablet (Bactrim DS) amoxicillin 875 mg-potassium 1 tab PO BID #20 tabs 11/21/23 clavulanate 125 mg tablet bisoprolol fumarate 5 mg tablet See Rx Instructions .Route 12/13/23 .COMPLEX #90 tabs oxycodone 5 mg tablet 5 mg PO Q6H PRN pain #10 tabs 01/09/24 amoxicillin 875 mg-potassium 1 tab PO BID dental caries #10 tabs 02/06/24 clavulanate 125 mg tablet Allergies Allergy/AdvReac Type Severity Reaction Status Date / Time buprenorphine [From Suboxone] Allergy Intermediate Vomiting Verified 01/09/24 18:41 naloxone [From Suboxone] Allergy Intermediate Vomiting Verified 01/09/24 18:41 ketorolac [From TORADOL] Allergy Mild Verified 01/09/24 18:41 tramadol [TRAMADOL] Allergy Mild Verified 01/09/24 18:41 diphenhydramine Allergy Unknown I-HIVES Verified 01/09/24 18:41 [From BENADRYL] [facility] Disclaimer: The information contained in this section may have been updated after the patient was seen, as this information can be updated by other users. Medical History Kidney stones Patient left without being seen Postoperative pain Otitis media Abdominal pain Foot callus Cellulitis Patient left without being seen Trichomonal vaginitis Postoperative abdominal pain Dysmenorrhea Menorrhagia Right lower quadrant pain Dysfunctional uterine bleeding Flank pain Palpitations SOB (shortness of breath) Concussion without loss of consciousness Microhematuria Acute right flank pain Degenerative joint disease (DJD) of lumbar spine Patient left without being seen Otitis externa Lumbar disc disease Tachycardia Back pain Dyspnea Chest pain Atypical chest pain Ovarian cyst Trichomonal cystitis Abdominal pain of unknown etiology Bilious vomiting Vomiting Closed fracture of tuft of distal phalanx of finger Pelvic pain UTI (urinary tract infection) Renal colic on left side Endometriosis Surgical History Hx of tonsillectomy History of cholecystectomy History of appendectomy H/O hysterectomy with oophorectomy [place] teeth extracted S/P appendectomy S/P hysterectomy Family History Mother Diabetes Hypertension Grandmother Cancer Father Cancer Hypertension Diabetes Social History Smoking Status: Current every day smoker tobacco type: cigarettes packs per day: 1 alcohol intake: never counseling provided: none substance use type: denies use current occupational status: employed and other Travel in the last 8 weeks: None household members: spouse housing: house current occupational exposures/hazards: No caffeine: Yes ROS Obtained: Yes Systems reviewed as appropriate & no additional complaints except as documented Physical Exam General General appearance: alert and in no apparent distress Head Head exam: atraumatic and normocephalic Eye Eye exam: Present PERRL ENT ENT exam: Present mucous membranes moist and other (Multiple dental caries and missing teeth present. There is bleeding along the posterior aspect of the mandibular left central incisor. Tooth is stable and it appears a small part of the inside of it has broken off.) Neck Neck exam: Present normal inspection Chest Chest inspection: Present normal inspection and symmetric chest wall rise Respiratory Respiratory exam: Absent respiratory distress Cardiovascular Cardiovascular exam: Present regular rate and normal rhythm Abdominal Exam Abdominal exam: Present soft Extremities Exam Extremities exam: Present normal inspection Neurological Exam Neurological exam: Present alert Psychiatric Psychiatric exam: Present normal affect Skin Skin exam: Present warm and dry Medical Decision Making Aram Inquiry Pt receiving controlled substance: No Vital Signs: 02/06/24 03:44 Temperature 98.5 F Temperature Source Oral Pulse Rate [Left] 84 Respiratory Rate 18 Blood Pressure [Right Arm] 137/96 H Blood Pressure Mean [Right Arm] 109 Blood Pressure Source [Right Arm] Automatic Cuff Blood Pressure Position [Right Arm] Sitting 02 Sat by Pulse Oximetry 99 Oxygen Delivery Method Room Air Orders (Tests/Meds): ED MEDICATIONS Generic Name Dose Route Start Last Admin Trade Name Freq PRN Reason Stop Dose Admin Amoxicillin/Clavulanate Potassium 1 each 02/06/24 04:03 Amoxicillin/Clavulanate Potassium 875/125mg Tablet PO 02/06/24 04:04 ONCE ONE Discontinued Medications Generic Name Dose Route Start Last Admin Trade Name Freq PRN Reason Stop Dose Admin Lidocaine HCl 15 ml 02/06/24 03:58 Lidocaine 2% Viscous Daisha 15ml Udc PO 02/06/24 03:59 ONCE ONE Medical Decision Narrative: In summary patient is a 28-year-old female past medical history described above who presents emergency department for evaluation of dental trauma. Patient is hemodynamically stable nontoxic-appearing upon arrival, afebrile. Patient was hit in the mouth with a basketball, no significant mechanism to warrant intracranial imaging at this time. No lacerations that need repaired. Patient may have a tooth fracture however may have just fractured a piece of plaque along the inside of her mandibular incisors. Wound is largely hemostatic. Patient has multiple dental caries and missing teeth. Initial inventions include dental balls and patient was given single dose of Augmentin. Patient is appropriate for discharge at this time will be discharged with a course of Augmentin and was instructed to follow-up with her dentist this week. Critical Care Critical Care Time Critical Care Time: No
[2024-02-06] MEDS: LIDOCAINE 2% VISCOUS SOL 15ML UDC 15 ML PO (04:12)
[2024-02-06] MEDS: AMOXICILLIN/CLAVULANATE POTASSIUM 875/125MG TABLET 1 EACH PO (04:12)
[2024-02-06 04:16] VITALS: BP 132/88; PULSE 82; RESP 18; TEMP 36.9; O2SAT 99
== END 2024-02-06 04:18 | disposition home or self-care (01) ==
PROVIDERS: Emergency Provider Emergency Medicine; PCP Family Medicine
DX: S02.5XXA Fracture of tooth (traumatic), initial encounter for closed fracture (principal); W21.05XA Struck by basketball, initial encounter; Y93.67 Activity, basketball
CPT/HCPCS: 99283

== ENCOUNTER 2024-03-12 16:30 | Emergency (ER) | payer OTHER, SELFPAY ==
[2024-03-12 16:31] VITALS: BP 122/82; PULSE 86; RESP 18; TEMP 36.8; O2SAT 96; BMI 35.4
--- NOTE | 2024-03-12 17:05 | ED_ITS ---
<Statement entered by Sophy Campos MD - 03/12/24 22:29> I was consulted by the JOVANNY, and we discussed the complexity of the problems being addressed. I approved the treatment and management plan for this patient's care in the emergency department, thus performing a substantive portion of the medical decision making. Sophy Campos MD, SUZY, FACEP Discharge Plan Disposition Patient Disposition: Home, Self-Care Condition: Good Prescriptions Prescriptions: No Action hydrocodone-acetaminophen 5-325 mg tablet 1 tab PO BID PRN (Reason: pain) Qty: 60 0RF gabapentin 300 mg capsule 300 mg PO TID Qty: 90 0RF atorvastatin 10 mg tablet 10 mg PO HS Qty: 90 0RF aspirin 81 mg tablet,delayed release (DR/EC) See Rx Instructions .ROUTE .COMPLEX Qty: 30 1RF Dose Instruction: TAKE 1 TABLET BY MOUTH DAILY FOR HEART HEALTH Rx Instructions: TAKE 1 TABLET BY MOUTH DAILY FOR HEART HEALTH bisoprolol fumarate 5 mg tablet See Rx Instructions .ROUTE .COMPLEX Qty: 90 3RF Dose Instruction: TAKE 1 TABLET BY MOUTH ONCE DAILY FOR HYPERTENSION -NEEDS FOLLOW UP APPOINTMENT FOR REFILLS- Rx Instructions: TAKE 1 TABLET BY MOUTH ONCE DAILY FOR HYPERTENSION cephalexin 500 mg capsule 500 mg PO QID Qty: 40 0RF mupirocin 2 % ointment 1 applic topical TID 7 Days Qty: 15 0RF sulfamethoxazole-trimethoprim [Bactrim DS] 800-160 mg Tablet 1 tab PO BID Qty: 20 0RF amoxicillin-pot clavulanate 875-125 mg tablet 1 tab PO BID Qty: 10 0RF amoxicillin-pot clavulanate 875-125 mg tablet 1 tab PO BID Qty: 20 0RF oxycodone 5 mg tablet 5 mg PO Q6H PRN (Reason: pain) Qty: 10 0RF Referrals Follow up/Referrals: Gary Flanagan MD [Primary Care Provider] - See instructions Activity Restrictions/Add. Instructions Additional Instructions/Restrictions: Please follow-up with your PCP this week. Return to ER for any worsening signs or symptoms as needed. Clinical Impressions Clinical Impression: Headache Instructions Patient Instructions: DI for Headache Discharge ED Provider: Sophy Campos General Adult [facility] General Chief complaint: PAIN Stated complaint: RT shoulder , jaw pain Time Seen by Provider: 03/12/24 17:03 Mode of Arrival: Ambulatory Source of Information: Patient Limitations: No Limitations Description of Symptoms (Recalled from ER Triage Doc. by RN): pt presents to ED c/o right shoulder pain and unable to remember anything x 2 weeks. pt denies any known injury to right arm/shoulder. pt alert and oriented at time of triage. History of Present Illness HPI narrative: Patient presents for evaluation of right-sided headache and shoulder pain. Patient states that she went to bed last night feeling her normal self and when she woke up this morning she had a headache and right shoulder pain and reports that she had difficulty after awakening with memory of things that happened over the last 2 weeks. Patient is not more specific but remembers seeing me 2 months ago for a tooth infection etc. patient denies loss of vision or any focal neurologic deficits and reports that sounds and in light make her headache worse. She denies chest pain shortness of breath fever chills hemoptysis hematochezia melena nausea vomiting diarrhea currently. Related Data Previous Rx's Medication Instructions Recorded atorvastatin 10 mg tablet 10 mg PO HS elevated cholesterol 07/05/23 #90 tabs gabapentin 300 mg capsule 300 mg PO TID #90 caps 09/10/23 hydrocodone 5 mg-acetaminophen 325 1 tab PO BID PRN pain #60 tabs 09/10/23 mg tablet aspirin 81 mg tablet,delayed See Rx Instructions .Route 10/19/23 release .COMPLEX #30 tabs cephalexin 500 mg capsule 500 mg PO QID #40 caps 10/28/23 mupirocin 2 % topical ointment 1 applic topical TID 7 days #15 10/28/23 grams sulfamethoxazole 800 1 tab PO BID #20 tabs 10/28/23 mg-trimethoprim 160 mg tablet (Bactrim DS) amoxicillin 875 mg-potassium 1 tab PO BID #20 tabs 11/21/23 clavulanate 125 mg tablet bisoprolol fumarate 5 mg tablet See Rx Instructions .Route 12/13/23 .COMPLEX #90 tabs oxycodone 5 mg tablet 5 mg PO Q6H PRN pain #10 tabs 01/09/24 amoxicillin 875 mg-potassium 1 tab PO BID dental caries #10 tabs 02/06/24 clavulanate 125 mg tablet Allergies Allergy/AdvReac Type Severity Reaction Status Date / Time buprenorphine [From Suboxone] Allergy Intermediate Vomiting Verified 01/09/24 18:41 naloxone [From Suboxone] Allergy Intermediate Vomiting Verified 01/09/24 18:41 ketorolac [From TORADOL] Allergy Mild Verified 01/09/24 18:41 tramadol [TRAMADOL] Allergy Mild Verified 01/09/24 18:41 diphenhydramine Allergy Unknown I-HIVES Verified 01/09/24 18:41 [From BENADRYL] [facility] Disclaimer: The information contained in this section may have been updated after the patient was seen, as this information can be updated by other users. Medical History Kidney stones Patient left without being seen Postoperative pain Otitis media Abdominal pain Foot callus Cellulitis Patient left without being seen Trichomonal vaginitis Postoperative abdominal pain Dysmenorrhea Menorrhagia Right lower quadrant pain Dysfunctional uterine bleeding Flank pain Palpitations SOB (shortness of breath) Concussion without loss of consciousness Microhematuria Acute right flank pain Degenerative joint disease (DJD) of lumbar spine Patient left without being seen Otitis externa Lumbar disc disease Tachycardia Back pain Dyspnea Chest pain Atypical chest pain Ovarian cyst Trichomonal cystitis Abdominal pain of unknown etiology Bilious vomiting Vomiting Closed fracture of tuft of distal phalanx of finger Pelvic pain UTI (urinary tract infection) Renal colic on left side Endometriosis Surgical History Hx of tonsillectomy History of cholecystectomy History of appendectomy H/O hysterectomy with oophorectomy [place] teeth extracted S/P appendectomy S/P hysterectomy Family History Mother Diabetes Hypertension Grandmother Cancer Father Cancer Hypertension Diabetes Social History Smoking Status: Current every day smoker tobacco type: cigarettes packs per day: 1 alcohol intake: never counseling provided: none substance use type: denies use current occupational status: employed and other Travel in the last 8 weeks: None household members: spouse housing: house current occupational exposures/hazards: No caffeine: Yes ROS Obtained: Yes Systems reviewed as appropriate & no additional complaints except as documented Physical Exam General General appearance: alert and in no apparent distress Head Head exam: atraumatic, normocephalic and normal inspection Eye Eye exam: Present normal appearance and EOMI ENT ENT exam: Present normal exam, normal oropharynx and mucous membranes moist Neck Neck exam: Present normal inspection, full ROM and tenderness (Posterior tenderness of the trapezius on the right); Absent meningismus or lymphadenopathy Respiratory Respiratory exam: Present normal lung sounds bilaterally Cardiovascular Cardiovascular exam: Present regular rate and normal rhythm Back Exam Back exam: Present normal inspection and tenderness (Trapezius on the right) Neurological Exam Neurological exam: Present alert, oriented X3, CN II-XII intact, normal gait and reflexes normal; Absent motor sensory deficit Psychiatric Psychiatric exam: Present normal affect and normal mood Medical Decision Making Medical Records Medical records reviewed: Yes I reviewed the patient's medical records. Aram Inquiry Pt receiving controlled substance: No Vital Signs: 03/12/24 16:31 03/12/24 17:30 03/12/24 18:10 Temperature 98.2 F Temperature Source Oral Pulse Rate 78 66 Pulse Rate [Right Radial] 86 Respiratory Rate 18 Blood Pressure 124/87 113/77 Blood Pressure [Right Arm] 122/82 Blood Pressure Mean [Right Arm] 95 Blood Pressure Source Blood Pressure Source [Right Arm] Automatic Cuff Blood Pressure Position [Right Arm] Sitting 02 Sat by Pulse Oximetry 96 92 L 96 Oxygen Delivery Method Room Air Room Air Room Air 03/12/24 18:24 Temperature 98.2 F Temperature Source Oral Pulse Rate 78 Pulse Rate [Right Radial] Respiratory Rate 16 Blood Pressure 115/78 Blood Pressure [Right Arm] Blood Pressure Mean [Right Arm] Blood Pressure Source Automatic Cuff Blood Pressure Source [Right Arm] Blood Pressure Position [Right Arm] 02 Sat by Pulse Oximetry Oxygen Delivery Method Lab Data Lab results reviewed: Yes I reviewed the patient's lab results. Lab Results 03/12/24 17:22: WBC 9.2, RBC 4.59, Hgb 14.5, Hct 45.6, MCV 99.4 H, MCH 31.6 H, MCHC 31.8, RDW 13.0, Plt Count 306, MPV 9.6, Neut % (Auto) 70.6, Lymph % (Auto) 21.5, [place] % (Auto) 4.9, Eos % (Auto) 2.6, Baso % (Auto) 0.5, Neut # (Auto) 6.5, Lymph # (Auto) 2.0, [place] # (Auto) 0.5, Eos # (Auto) 0.2, Baso # (Auto) 0.0, ESR 19, Sodium 140, Potassium 4.1, Chloride 103, Carbon Dioxide 29, Anion Gap 12.1, BUN 9, Creatinine 0.70, Estimated Creat Clear 171, Estimated GFR 100, Est GFR ( Amer) 121, Glucose 103 H, Calcium 9.4, C-Reactive Protein 9.8 H, Serum HCG, Qual Positive 03/12/24 17:22 03/12/24 17:22 Orders (Tests/Meds): ED MEDICATIONS Discontinued Medications Generic Name Dose Route Start Last Admin Trade Name Freq PRN Reason Stop Dose Admin Acetaminophen 1,000 mg 03/12/24 17:03/12/24 17:34 Acetaminophen 1,000mg/100ml Vial IV 03/12/24 17:07 1,000 mg ONCE ONE Administration Dexamethasone Sodium Phosphate 10 mg 03/12/24 17:06 03/12/24 17:34 Dexamethasone 4mg/Ml 5ml Mdv IV 03/12/24 17:07 10 mg ONCE ONE Administration Lactated Ringer's 1,000 mls @ 999 mls/hr 03/12/24 17:06 03/12/24 17:34 Lactated Ringer's 1000 Ml Bag IV 03/12/24 18:06 999 mls/hr .Q1H1M ONE Administration Methocarbamol 500 mg 03/12/24 17:06 03/12/24 17:34 Methocarbamol 500mg Tablet PO 03/12/24 17:07 500 mg ONCE ONE Administration Prochlorperazine Edisylate 10 mg 03/12/24 17:06 03/12/24 17:34 Prochlorperazine 10mg/2ml Vial IV 03/12/24 17:07 10 mg ONCE ONE Administration ORDERS Category Date Time Status BMP [Basic Metabolic Panel] Stat Lab 03/12/24 17:22 Completed CBC w/Auto Diff [Complete Blood Count Auto Diff] Stat Lab 03/12/24 17:22 Completed CRP [C-Reactive Protein] Stat Lab 03/12/24 17:22 Completed ESR [Erythrocyte Sedimentation Rate] Stat Lab 03/12/24 17:22 Completed HCG Qualitative, Serum Stat Lab 03/12/24 17:22 Completed HCG,Quantitative Stat Lab 03/12/24 17:22 Received Medical Decision Narrative: In summary patient is a 28-year-old female who presents to the emergency department for evaluation of headache. Patient is hemodynamically stable upon arrival, afebrile. Physical exam is remarkable for right trapezius tenderness on palpation, no meningeal signs no occipital tenderness no nuchal rigidity full range of motion of the C-spine Aletha Coma Score 15 no focal neurologic deficits. Differential diagnosis includes migraine headache versus tension headache versus meningitis versus space-occupying lesion etc. Initial workup will be conducted with hematologic labs. Initial interventions include headache cocktail of acetaminophen Decadron Compazine Robaxin. Initial workup reviewed by me shows that the patient has a positive test but the remainder of her hematologic labs are nonactionable. Patient is status post I believe TAMMY and BSO. Upon repeat evaluation I had a quantitative test run which shows that her hCG level is 8 which is technically normal but just above the upper limit of normal.. Given this I had interactive discussion with the patient regarding her symptoms and she has significant resolution of her headache. Given her hCG levels I have recommended that she follow that up with her PCP is no acute intervention is warranted at this time. Critical Care Critical Care Time Critical Care Time: No
[2024-03-12 17:30] VITALS: BP 124/87; PULSE 78; O2SAT 92
[2024-03-12 17:32] LABS: Basophils % 0.5 % (0.1-2.0); Eosinophils # 0.2 K/mm3 (0.0-0.4); Eosinophils % 2.6 % (0.1-12.0); Hematocrit 45.6 % (37.0-47.0); Hemoglobin 14.5 g/dL (12.2-16.2); Lymphocytes % 21.5 % (10-50); Mean Corpuscular HGB Conc 31.8 g/dL (31.8-35.4); Mean Corpuscular Hemoglobin 31.6 pg (27.0-31.2); Mean Corpuscular Volume 99.4 fl (81-99); Mean Platelet Volume 9.6 fl (7.4-10.4); Monocytes # 0.5 K/mm3 (0.1-1.0); Monocytes % 4.9 % (1.7-9.3); Neutrophils # 6.5 K/mm3 (1.8-7.8); Neutrophils % 70.6 % (37.0-80.0); Platelet Count 306 K/mm3 (142-424); Red Blood Count 4.59 M/mm3 (4.20-5.40); White Blood Count 9.2 K/mm3 (4.8-10.8)
[2024-03-12] MEDS: LACTATED RINGERS 1000ML 1,000 ML 999 ML IV (17:34)
[2024-03-12] MEDS: ACETAMINOPHEN 1,000MG/100ML VIAL 1000 MG IV (17:34)
[2024-03-12] MEDS: METHOCARBAMOL 500MG TABLET 500 MG PO (17:34)
[2024-03-12] MEDS: DEXAMETHASONE 4MG/ML 5ML MDV 10 MG IV (17:34)
[2024-03-12] MEDS: PROCHLORPERAZINE 10MG/2ML VIAL 10 MG IV (17:34)
[2024-03-12 17:37] LABS: Anion Gap 12.1 mEq/L (5-15); Blood Urea Nitrogen 9 mg/dl (7-17); Calcium 9.4 mg/dl (8.4-10.2); Carbon Dioxide 29 mmol/L (22.0-30.0); Chloride 103 mmol/L (98-107); Creatinine Clearance Estimated 171 mL/min (50-200); Estimated Glomerular Filt Rate 100 ml/min (>60); GFR (African American) 121 ML/MIN (>60); Glucose 103 mg/dl (74-100); Potassium 4.1 mmoL/L (3.5-5.1); Sodium 140 mmol/L (136-145)
[2024-03-12 17:41] LABS: HCG Qualitative, Serum Positive (Negative)
[2024-03-12 17:43] LABS: C-Reactive Protein 9.8 mg/L (0-4)
[2024-03-12 18:03] LABS: Erythrocyte Sedimentation Rate 19 mm/hr (0-20)
[2024-03-12 18:10] VITALS: BP 113/77; PULSE 66; O2SAT 96
[2024-03-12 18:24] VITALS: BP 115/78; PULSE 78; RESP 16; TEMP 36.8; O2SAT 96
[2024-03-12 18:34] LABS: HCG,Quantitative 8 mIU/ml (0-5.42)
== END 2024-03-12 18:26 | disposition home or self-care (01) ==
PROVIDERS: Physician Assistant; Emergency Provider Student in an Organized Health Care Education/Training Program; PCP Family Medicine
DX: R51.9 Headache, unspecified (principal); M79.621 Pain in right upper arm
CPT/HCPCS: 80048; 84702; 84703; 85025; 85651; 86140; 96361; 96374; 96375; 99284; J0131; J7120

== ENCOUNTER 2024-04-07 05:02 | Emergency (ER) | payer SELFPAY ==
[2024-04-07 05:03] VITALS: BP 129/97; PULSE 102; RESP 20; TEMP 37; O2SAT 98; BMI 38.9
--- NOTE | 2024-04-07 05:13 | HMH.EDGENADL ---
Discharge Plan Disposition Patient Disposition: Home, Self-Care Condition: Good Prescriptions Prescriptions: New amoxicillin-pot clavulanate 875-125 mg tablet 1 tab PO BID Qty: 20 0RF No Action hydrocodone-acetaminophen 5-325 mg tablet 1 tab PO BID PRN (Reason: pain) Qty: 60 0RF gabapentin 300 mg capsule 300 mg PO TID Qty: 90 0RF atorvastatin 10 mg tablet 10 mg PO HS Qty: 90 0RF aspirin 81 mg tablet,delayed release (DR/EC) See Rx Instructions .ROUTE .COMPLEX Qty: 30 1RF Dose Instruction: TAKE 1 TABLET BY MOUTH DAILY FOR HEART HEALTH Rx Instructions: TAKE 1 TABLET BY MOUTH DAILY FOR HEART HEALTH bisoprolol fumarate 5 mg tablet See Rx Instructions .ROUTE .COMPLEX Qty: 90 3RF Dose Instruction: TAKE 1 TABLET BY MOUTH ONCE DAILY FOR HYPERTENSION -NEEDS FOLLOW UP APPOINTMENT FOR REFILLS- Rx Instructions: TAKE 1 TABLET BY MOUTH ONCE DAILY FOR HYPERTENSION cephalexin 500 mg capsule 500 mg PO QID Qty: 40 0RF mupirocin 2 % ointment 1 applic topical TID 7 Days Qty: 15 0RF sulfamethoxazole-trimethoprim [Bactrim DS] 800-160 mg Tablet 1 tab PO BID Qty: 20 0RF amoxicillin-pot clavulanate 875-125 mg tablet 1 tab PO BID Qty: 10 0RF amoxicillin-pot clavulanate 875-125 mg tablet 1 tab PO BID Qty: 20 0RF oxycodone 5 mg tablet 5 mg PO Q6H PRN (Reason: pain) Qty: 10 0RF Referrals Follow up/Referrals: Gary Flanagan MD [Primary Care Provider] - See instructions Activity Restrictions/Add. Instructions Additional Instructions/Restrictions: You were evaluated in the ER. You are appropriate for discharge at this time. Take the prescribed antibiotics as directed, do not skip doses, do not stop taking them early. Use the provided dental balls as needed for pain, leave these on for 1 hour at a time, then take it off for at least 1 hour. Do not sleep or eat with these in. Also use Tylenol, ibuprofen. Do not exceed the recommended doses on the bottles. Follow-up with your dentist soon as possible for reevaluation and for further management of your dental concerns. Clinical Impressions Clinical Impression: Pain, dental, Dental infection Print Language Print Language: Danish Discharge ED Provider: Anayeli Saunders General Adult HPI General Stated complaint: toothache, high bp Time Seen by Provider: 04/07/24 05:05 History of Present Illness HPI narrative: 28-year-old female presents to the ER for concerns of tooth pain and high blood pressure. Patient states starting around 8 PM she has had tooth pain in her right front/lower teeth. She states she has multiple bad teeth and is scheduled to have her teeth extracted on Wednesday. She is not currently on any antibiotics. She has been seen previously in our ER for dental pain based on my review of previous records. In the past she has been prescribed Augmentin. Patient states she did not have any acute injury, did not really break a tooth, she does not have fevers, difficulty swallowing, difficulty opening her jaw, or difficulty breathing. Patient also states her blood pressure is mar[place] high and she thinks this is likely due to pain. She does not report any other associated symptoms with the high blood pressure. She reports taking Tylenol and ibuprofen prior to arrival without improvement of symptoms. Related Data Previous Rx's ?Medication ?Instructions ?Recorded atorvastatin 10 mg tablet 10 mg PO HS elevated cholesterol 07/05/23 #90 tabs gabapentin 300 mg capsule 300 mg PO TID #90 caps 09/10/23 hydrocodone 5 mg-acetaminophen 325 1 tab PO BID PRN pain #60 tabs 09/10/23 mg tablet aspirin 81 mg tablet,delayed See Rx Instructions .Route 10/19/23 release .COMPLEX #30 tabs cephalexin 500 mg capsule 500 mg PO QID #40 caps 10/28/23 mupirocin 2 % topical ointment 1 applic topical TID 7 days #15 10/28/23 grams sulfamethoxazole 800 1 tab PO BID #20 tabs 10/28/23 mg-trimethoprim 160 mg tablet (Bactrim DS) amoxicillin 875 mg-potassium 1 tab PO BID #20 tabs 11/21/23 clavulanate 125 mg tablet bisoprolol fumarate 5 mg tablet See Rx Instructions .Route 12/13/23 .COMPLEX #90 tabs oxycodone 5 mg tablet 5 mg PO Q6H PRN pain #10 tabs 01/09/24 amoxicillin 875 mg-potassium 1 tab PO BID dental caries #10 tabs 02/06/24 clavulanate 125 mg tablet amoxicillin 875 mg-potassium 1 tab PO BID #20 tabs 04/07/24 clavulanate 125 mg tablet Allergies Allergy/AdvReac Type Severity Reaction Status Date / Time buprenorphine [From Suboxone] Allergy Intermediate Vomiting Verified 01/09/24 18:41 naloxone [From Suboxone] Allergy Intermediate Vomiting Verified 01/09/24 18:41 ketorolac [From TORADOL] Allergy Mild Verified 01/09/24 18:41 tramadol [TRAMADOL] Allergy Mild Verified 01/09/24 18:41 diphenhydramine Allergy Unknown I-HIVES Verified 01/09/24 18:41 [From BENADRYL] [facility] Disclaimer: The information contained in this section may have been updated after the patient was seen, as this information can be updated by other users. Medical History Kidney stones Patient left without being seen Postoperative pain Otitis media Abdominal pain Foot callus Cellulitis Patient left without being seen Trichomonal vaginitis Postoperative abdominal pain Dysmenorrhea Menorrhagia Right lower quadrant pain Dysfunctional uterine bleeding Flank pain Palpitations SOB (shortness of breath) Concussion without loss of consciousness Microhematuria Acute right flank pain Degenerative joint disease (DJD) of lumbar spine Patient left without being seen Otitis externa Lumbar disc disease Tachycardia Back pain Dyspnea Chest pain Atypical chest pain Ovarian cyst Trichomonal cystitis Abdominal pain of unknown etiology Bilious vomiting Vomiting Closed fracture of tuft of distal phalanx of finger Pelvic pain UTI (urinary tract infection) Renal colic on left side Endometriosis Surgical History Hx of tonsillectomy History of cholecystectomy History of appendectomy H/O hysterectomy with oophorectomy [place] teeth extracted S/P appendectomy S/P hysterectomy Family History Mother Diabetes Hypertension Grandmother Cancer Father Cancer Hypertension Diabetes Social History Smoking Status: Current every day smoker tobacco type: cigarettes packs per day: 1 alcohol intake: never counseling provided: none substance use type: denies use current occupational status: employed and other Travel in the last 8 weeks: None household members: spouse housing: house current occupational exposures/hazards: No caffeine: Yes ROS Obtained: Yes All systems reviewed & no additional complaints except as documented Constitutional Constitutional: Denies fever(s) ENT Ears, Nose, Mouth, and Throat: Reports dental pain, Denies dysphagia and Denies throat swelling Cardiovascular Cardiovascular: Denies chest pain and Denies dyspnea Respiratory Respiratory: Denies dyspnea and Denies stridor Gastrointestinal Gastrointestingal: Denies abdominal pain, dysphagia, nausea or vomiting Allergic/Immunologic Allergic/Immunologic: Denies throat swelling Physical Exam General General appearance: alert and in no apparent distress Head Head exam: atraumatic and normocephalic Eye Eye exam: Present PERRL and EOMI ENT ENT exam: Present mucous membranes moist Expanded ENT Exam Teeth exam: Present dental caries (Multiple, throughout the mouth), dental tenderness # (Base of tooth 26, 27 with associated gingival swelling, no fluctuance, no obvious drainable abscess) and gingival swelling Comment: No trismus, no submandibular or sublingual swelling or tenderness Neck Neck exam: Present normal inspection and full ROM; Absent lymphadenopathy Chest Chest inspection: Present symmetric chest wall rise Respiratory Respiratory exam: Absent respiratory distress or stridor Cardiovascular Cardiovascular exam: Present regular rate and normal rhythm Extremities Exam Extremities exam: Present full ROM Neurological Exam Neurological exam: Present alert and oriented X3; Absent motor sensory deficit Psychiatric Psychiatric exam: Present normal affect and normal mood Skin Skin exam: Present warm and dry Medical Decision Making Medical Records Medical records reviewed: Yes I reviewed the patient's medical records. MR Comment: Multiple previous visits for dental complaints, previously treated with Augmentin. Most recent visit with family medicine was for a skin abscess. Aram Inquiry Pt receiving controlled substance: No Orders (Tests/Meds): ED MEDICATIONS Generic Name Dose Route Start Last Admin Trade Name [place] PRN Reason Stop Dose Admin Benzocaine/Butamben/Tetracaine HCl 1 gm 04/07/24 05:09 Tetracaine/Benzocaine/Butamben 56 Gm [place] TP 04/07/24 05:10 ONCE ONE Lidocaine HCl 15 ml 04/07/24 05:09 Lidocaine 2% Viscous Daisha 15ml Udc PO 04/07/24 05:10 ONCE ONE Ondansetron HCl 4 mg 04/07/24 05:10 Ondansetron 4mg Odt SL 04/07/24 05:11 ONCE ONE Oxycodone HCl 5 mg 04/07/24 05:09 Oxycodone 5mg Immediate Release Tablet PO 04/07/24 05:10 ONCE ONE Medical Decision Narrative: In summary, this 28-year-old female presents to the emergency department today with concerns of dental pain, blood pressure. On initial evaluation patient is hemodynamically stable, afebrile, blood pressure in the ER is unremarkable, patient has profound dental disease with numerous dental caries, findings of gingival swelling, no obvious abscess. Differential diagnosis includes but is not limited to gingivitis, dental infection, avulsed tooth, caries, I considered abscess but do not have evidence of this on exam. I did consider Jose Luis's angina however patient does not have any findings of submandibular or sublingual swelling, tenderness, no trismus, no stridor, tolerating secretions. Based on history and physical exam I do not believe patient requires any labs or imaging at this time. She received dental balls and one-time dose of oral oxycodone in the ER for acute pain management. These were administered with Zofran since she has a history of nausea with narcotics. Narcotics will not be prescribed to the patient. She was provided dental balls for home management and I prescribed Augmentin for outpatient management. She already has follow-up with dentistry 4 days from now for tooth extraction, I encouraged her to keep this appointment. Patient was given instructions on symptomatic management, follow up instructions, and return precautions for the emergency department. Patient indicated understanding and was discharged in stable condition. Critical Care Critical Care Time Critical Care Time: No
[2024-04-07] MEDS: OXYCODONE 5MG IMMEDIATE RELEASE TABLET 5 MG PO (05:16)
[2024-04-07] MEDS: ONDANSETRON 4MG ODT 4 MG SL (05:17)
[2024-04-07] MEDS: TETRACAINE/BENZOCAINE/BUTAMBEN 56 GM SPRAY TP (05:20)
[2024-04-07] MEDS: LIDOCAINE 2% VISCOUS SOL 15ML UDC 15 ML PO (05:20)
[2024-04-07 05:28] VITALS: BP 121/92; PULSE 76; RESP 16; TEMP 37; O2SAT 96
== END 2024-04-07 05:31 | disposition home or self-care (01) ==
PROVIDERS: Emergency Provider Emergency Medicine; PCP Family Medicine
DX: K04.7 Periapical abscess without sinus (principal); K08.89 Other specified disorders of teeth and supporting structures; F17.210 Nicotine dependence, cigarettes, uncomplicated
CPT/HCPCS: 99283

== ENCOUNTER 2024-04-12 01:11 | Emergency (ER) | payer OTHER, SELFPAY ==
[2024-04-12 01:13] VITALS: BP 124/83; PULSE 74; RESP 18; TEMP 36.8; O2SAT 98; BMI 38.9
--- NOTE | 2024-04-12 01:16 | HMH.EDGENADL ---
Discharge Plan Disposition Patient Disposition: Home, Self-Care Prescriptions Prescriptions: New sulfamethoxazole-trimethoprim 800-160 mg tablet 1 tab PO BID 7 Days Qty: 14 0RF ondansetron HCl 4 mg tablet 4 mg PO Q8H PRN (Reason: nausea and vomiting) 5 Days Qty: 30 0RF No Action hydrocodone-acetaminophen 5-325 mg tablet 1 tab PO BID PRN (Reason: pain) Qty: 60 0RF gabapentin 300 mg capsule 300 mg PO TID Qty: 90 0RF atorvastatin 10 mg tablet 10 mg PO HS Qty: 90 0RF aspirin 81 mg tablet,delayed release (DR/EC) See Rx Instructions .ROUTE .COMPLEX Qty: 30 1RF Dose Instruction: TAKE 1 TABLET BY MOUTH DAILY FOR HEART HEALTH Rx Instructions: TAKE 1 TABLET BY MOUTH DAILY FOR HEART HEALTH bisoprolol fumarate 5 mg tablet See Rx Instructions .ROUTE .COMPLEX Qty: 90 3RF Dose Instruction: TAKE 1 TABLET BY MOUTH ONCE DAILY FOR HYPERTENSION -NEEDS FOLLOW UP APPOINTMENT FOR REFILLS- Rx Instructions: TAKE 1 TABLET BY MOUTH ONCE DAILY FOR HYPERTENSION cephalexin 500 mg capsule 500 mg PO QID Qty: 40 0RF mupirocin 2 % ointment 1 applic topical TID 7 Days Qty: 15 0RF sulfamethoxazole-trimethoprim [Bactrim DS] 800-160 mg Tablet 1 tab PO BID Qty: 20 0RF amoxicillin-pot clavulanate 875-125 mg tablet 1 tab PO BID Qty: 10 0RF amoxicillin-pot clavulanate 875-125 mg tablet 1 tab PO BID Qty: 20 0RF amoxicillin-pot clavulanate 875-125 mg tablet 1 tab PO BID Qty: 20 0RF oxycodone 5 mg tablet 5 mg PO Q6H PRN (Reason: pain) Qty: 10 0RF Referrals Follow up/Referrals: Meagan Kirkland PA [Primary Care Provider] - See instructions Activity Restrictions/Add. Instructions Additional Instructions/Restrictions: Please take antibiotics as prescribed. Please follow-up with your primary care provider. Please return to the emergency department if you develop any new or worsening symptoms or become concerned for your health. Clinical Impressions Clinical Impression: Pyelonephritis Instructions Patient Instructions: DI for Low Back Pain Print Language Print Language: Polish Discharge ED Provider: Camacho Samano Adult HPI General Chief complaint: Back Pain/Injury Stated complaint: abd pain, trouble urinating, hist of kidney stones Time Seen by Provider: 04/12/24 01:15 History of Present Illness HPI narrative: 20-year-old female with history of prior kidney stones presents for left flank pain. She reports that started a while ago and has been getting worse. She was trying to ignore it but decided to come in tonight because the pain was worsening. She reports that she is having urinary frequency and urgency and noted a little bit of blood in her urine. Reports the pain wraps around to the groin as well. Denies any fevers. Related Data Previous Rx's ?Medication ?Instructions ?Recorded atorvastatin 10 mg tablet 10 mg PO HS elevated cholesterol 07/05/23 #90 tabs gabapentin 300 mg capsule 300 mg PO TID #90 caps 09/10/23 hydrocodone 5 mg-acetaminophen 325 1 tab PO BID PRN pain #60 tabs 09/10/23 mg tablet aspirin 81 mg tablet,delayed See Rx Instructions .Route 10/19/23 release .COMPLEX #30 tabs cephalexin 500 mg capsule 500 mg PO QID #40 caps 10/28/23 mupirocin 2 % topical ointment 1 applic topical TID 7 days #15 10/28/23 grams sulfamethoxazole 800 1 tab PO BID #20 tabs 10/28/23 mg-trimethoprim 160 mg tablet (Bactrim DS) amoxicillin 875 mg-potassium 1 tab PO BID #20 tabs 11/21/23 clavulanate 125 mg tablet bisoprolol fumarate 5 mg tablet See Rx Instructions .Route 12/13/23 .COMPLEX #90 tabs oxycodone 5 mg tablet 5 mg PO Q6H PRN pain #10 tabs 01/09/24 amoxicillin 875 mg-potassium 1 tab PO BID dental caries #10 tabs 02/06/24 clavulanate 125 mg tablet amoxicillin 875 mg-potassium 1 tab PO BID #20 tabs 04/07/24 clavulanate 125 mg tablet ondansetron HCl 4 mg tablet 4 mg PO Q8H PRN nausea and 04/12/24 vomiting 5 days #30 tabs sulfamethoxazole 800 1 tab PO BID 7 days #14 tabs 04/12/24 mg-trimethoprim 160 mg tablet Allergies Allergy/AdvReac Type Severity Reaction Status Date / Time buprenorphine [From Suboxone] Allergy Intermediate Vomiting Verified 01/09/24 18:41 naloxone [From Suboxone] Allergy Intermediate Vomiting Verified 01/09/24 18:41 ketorolac [From TORADOL] Allergy Mild Verified 01/09/24 18:41 tramadol [TRAMADOL] Allergy Mild Verified 01/09/24 18:41 diphenhydramine Allergy Unknown I-HIVES Verified 01/09/24 18:41 [From BENADRYL] [facility] Disclaimer: The information contained in this section may have been updated after the patient was seen, as this information can be updated by other users. Medical History Kidney stones Patient left without being seen Postoperative pain Otitis media Abdominal pain Foot callus Cellulitis Patient left without being seen Trichomonal vaginitis Postoperative abdominal pain Dysmenorrhea Menorrhagia Right lower quadrant pain Dysfunctional uterine bleeding Flank pain Palpitations SOB (shortness of breath) Concussion without loss of consciousness Microhematuria Acute right flank pain Degenerative joint disease (DJD) of lumbar spine Patient left without being seen Otitis externa Lumbar disc disease Tachycardia Back pain Dyspnea Chest pain Atypical chest pain Ovarian cyst Trichomonal cystitis Abdominal pain of unknown etiology Bilious vomiting Vomiting Closed fracture of tuft of distal phalanx of finger Pelvic pain UTI (urinary tract infection) Renal colic on left side Endometriosis Surgical History Hx of tonsillectomy History of cholecystectomy History of appendectomy H/O hysterectomy with oophorectomy [place] teeth extracted S/P appendectomy S/P hysterectomy Family History Mother Diabetes Hypertension Grandmother Cancer Father Cancer Hypertension Diabetes Social History Smoking Status: Current every day smoker tobacco type: cigarettes packs per day: 1 alcohol intake: never counseling provided: none substance use type: denies use current occupational status: employed and other Travel in the last 8 weeks: None household members: spouse housing: house current occupational exposures/hazards: No caffeine: Yes ROS Obtained: Yes All systems reviewed & no additional complaints except as documented Physical Exam General General appearance: alert and in no apparent distress Head Head exam: atraumatic and normocephalic Eye Eye exam: Present normal appearance, PERRL and EOMI ENT ENT exam: Present normal oropharynx and normal external ear exam Neck Neck exam: Present normal inspection and full ROM Chest Chest inspection: Present normal inspection and symmetric chest wall rise; Absent tenderness Respiratory Respiratory exam: Present normal lung sounds bilaterally; Absent respiratory distress Cardiovascular Cardiovascular exam: Present regular rate and normal rhythm Abdominal Exam Abdominal exam: Present soft; Absent distention, tenderness or guarding Extremities Exam Extremities exam: Present normal inspection; Absent edema or joint swelling Back Exam Back exam: Present normal inspection and CVA tenderness (L); Absent tenderness Neurological Exam Neurological exam: Present alert and oriented X3; Absent motor sensory deficit Psychiatric Psychiatric exam: Present normal affect and normal mood Skin Skin exam: Present warm, dry and normal color Lymphatic Lymphatic Findings: no adenopathy Medical Decision Making Medical Records Medical records reviewed: Yes I reviewed the patient's medical records. Aram Inquiry Pt receiving controlled substance: No Aram was queried for this patient: No Vital Signs: 04/12/24 01:13 04/12/24 01:30 04/12/24 01:42 Temperature 98.3 F Temperature Source Oral Pulse Rate 79 83 Pulse Rate [Left Radial] 74 Respiratory Rate 18 Blood Pressure 120/80 123/74 Blood Pressure [Right Arm] 124/83 Blood Pressure Mean 88 82 Blood Pressure Mean [Right Arm] 96 Blood Pressure Source Blood Pressure Source [Right Arm] Automatic Cuff Blood Pressure Position Blood Pressure Position [Right Arm] Sitting 02 Sat by Pulse Oximetry 98 97 99 Oxygen Delivery Method Room Air 04/12/24 02:00 04/12/24 03:15 04/12/24 03:35 Temperature 98.3 F Temperature Source Oral Pulse Rate 70 62 62 Pulse Rate [Left Radial] Respiratory Rate 18 Blood Pressure 111/71 114/76 114/76 Blood Pressure [Right Arm] Blood Pressure Mean 77 84 Blood Pressure Mean [Right Arm] Blood Pressure Source Automatic Cuff Blood Pressure Source [Right Arm] Blood Pressure Position Sitting Blood Pressure Position [Right Arm] 02 Sat by Pulse Oximetry 96 98 Oxygen Delivery Method Room Air Lab Data Lab results reviewed: Yes I reviewed the patient's lab results. Lab Results 04/12/24 01:20: Urine Color Yellow, Urine Appearance Clear, Urine pH 6.0, Ur Specific [place] 1.020, Urine Protein Negative, Urine Glucose (UA) Negative, Urine Ketones Negative, Urine Blood 2+, Urine Nitrate Negative, Urine Bilirubin Negative, Urine Urobilinogen 0.2, Ur Leukocyte Esterase 1+ A, Urine RBC 3-5, Urine WBC 5-10, Ur Squamous Epith Cells 10-20, Calcium Oxalate Crystal Trace, Urine Bacteria 3+, Urine Mucus 1+ Orders (Tests/Meds): ED MEDICATIONS Discontinued Medications Generic Name Dose Route Start Last Admin Trade Name Javonq PRN Reason Stop Dose Admin Acetaminophen 1,000 mg 04/12/24 01:27 04/12/24 01:34 Acetaminophen 500mg Tab PO 04/12/24 01:28 1,000 mg ONCE ONE Administration Ceftriaxone Sodium 1 gm 04/12/24 03:16 04/12/24 03:25 Ceftriaxone 1gm Vial IM 04/12/24 03:17 1 gm ONCE ONE Administration Ibuprofen 600 mg 04/12/24 01:27 04/12/24 01:34 Ibuprofen 600 Mg Tablet PO 04/12/24 01:28 600 mg ONCE ONE Administration Lidocaine HCl 0 ml 04/12/24 03:16 04/12/24 03:23 Lidocaine 1% 5ml Pf Vial IM 04/12/24 03:17 5 ml ONCE ONE Administration Morphine Sulfate 4 mg 04/12/24 01:27 04/12/24 01:35 Morphine 2mg/Ml Syringe IM 04/12/24 01:28 Not Given ONCE ONE Morphine Sulfate 4 mg 04/12/24 01:36 04/12/24 01:37 Morphine 4mg/Ml Syringe IM 04/12/24 01:37 4 mg ONCE ONE Administration ORDERS Category Date Time Status CT abdomen pelvis wo con Stat Cat Scan 04/12/24 01:27 Completed Urinalysis and Microscopic Stat Lab 04/12/24 01:20 Completed Urine Culture Stat Micro 04/12/24 01:20 Received Medical Decision Narrative: 28-year-old female with history of prior kidney stones presents for left flank/groin pain, urinary urgency frequency and gross hematuria. History was obtained via interactive discussion with patient, chart review. On arrival, patient is [afebrile, hemodynamically stable, satting appropriately, alert, oriented x4, GCS 15], moving all extremities spontaneously. Full physical exam performed and significant for left CVA tenderness Differential includes but is not limited to ureterolithiasis, pyelonephritis, UTI. Patient was given IM morphine, p.o. Tylenol, p.o. ibuprofen, lidocaine patch for symptomatic management and correction of underlying abnormalities. Workup initiated including urinalysis, CT Noncon of the abdomen and pelvis. On re-evaluation, patient [remains afebrile, HD stable.] Laboratory workup independently interpreted by me and significant for urine consistent with infection. She has 5-10 WBCs and 3+ bacteria with trace calcium oxalate, though nitrate negative. Imaging independently interpreted by me and significant for no evidence of ureteral stone. Patient does have small nonobstructing nephrolithiasis. No hydronephrosis noted.. See radiology read for full review of final results. Given patient history, exam and workup, patient's presentation most likely represents either a small kidney stone which has already passed, or pyelonephritis. Given urinalysis results we will treat as pyelo. Patient was offered a dose of IM ceftriaxone but she refused. She was discharged with prescription for Bactrim for coverage of pyelonephritis, given return precautions. Procedures Risk/Benefits of Procedure(s) Were Explained: Yes Critical Care Critical Care Time Critical Care Time: No
--- NOTE | 2024-04-12 01:27 | CT_ITS ---
PROCEDURE INFORMATION: Exam: CT Abdomen And Pelvis Without Contrast Exam date and time: 04/12/2024 1:38 AM Age: 28 years old Clinical indication: Abdominal pain; Flank; Left; Additional info: Left flank pain TECHNIQUE: Imaging protocol: Computed tomography of the abdomen and pelvis without contrast. Radiation optimization: All CT scans at this facility use at least one of these dose optimization techniques: automated exposure control; mA and/or kV adjustment per patient size (includes targeted exams where dose is matched to clinical indication); or iterative reconstruction. COMPARISON: CT ABDOMEN PELVIS WO CON 06/29/2019 9:48 PM FINDINGS: Liver: Normal. No mass. Gallbladder and biliary ducts: Prior cholecystectomy. Pancreas: Normal. No ductal dilation. Spleen: Normal. No splenomegaly. Adrenal glands: Normal. No mass. Kidneys and ureters: 2 mm stone in the lower pole collecting system of the right kidney, no evidence of urolithiasis hydronephrosis or hydroureter. Stomach and bowel: Unremarkable. No obstruction. No mucosal thickening. Appendix: No evidence of appendicitis. Intraperitoneal space: Unremarkable. No free air. No significant fluid collection. Vasculature: Unremarkable. No abdominal aortic aneurysm. Lymph nodes: Unremarkable. No enlarged lymph nodes. Urinary bladder: Unremarkable as visualized. Reproductive: Prior hysterectomy. Bones/joints: Unremarkable. No acute fracture. Soft tissues: Unremarkable. IMPRESSION: 1. Right-sided non-obstructing nephrolithiasis. No evidence of urolithiasis. 2. Prior cholecystectomy and hysterectomy. May
[2024-04-12 01:30] VITALS: BP 120/80; PULSE 79; O2SAT 97
[2024-04-12] MEDS: IBUPROFEN 600 MG TABLET PO (01:34)
[2024-04-12] MEDS: ACETAMINOPHEN 500MG TAB 1000 MG PO (01:34)
[2024-04-12] MEDS: MORPHINE 4MG/ML SYRINGE 4 MG IM (01:37)
[2024-04-12 01:42] VITALS: BP 123/74; PULSE 83; O2SAT 99
[2024-04-12 01:48] LABS: Microscopic, Urine URINE MICROSCOPIC (MICROSCOPIC)
[2024-04-12 01:49] LABS: Appearance,Urine CLEAR (Clear); Bilirubin,Urine Negative (Negative); Blood, Urine 2+ (Negative); Color,Urine YELLOW (Yellow); Glucose,Urine (UA) Negative (Negative); Ketones,Urine Negative (Negative); Leukocyte Esterase,Urine 1+ (Negative); Nitrate,Urine Negative (Negative); Protein,Urine Negative (Negative); Urobilinogen,Urine 0.2 EU/dl (0.2)
[2024-04-12 01:59] LABS: Bacteria,Urine 3+ /lpf; Calcium Oxalate Crystals,Urine Trace /lpf; Mucus,Urine 1+ /lpf
[2024-04-12 02:00] VITALS: BP 111/71; PULSE 70; O2SAT 96
[2024-04-12 03:15] VITALS: BP 114/76; PULSE 62; O2SAT 98
--- NOTE | 2024-04-12 03:17 | PC.NURSE ---
rounded on pt at this time. pt given 2 starrys.
[2024-04-12] MEDS: LIDOCAINE 1% 5ML PF VIAL IM (03:23)
[2024-04-12] MEDS: cefTRIAXone 1GM VIAL 1 GM IM (03:25)
[2024-04-12 03:35] VITALS: BP 114/76; PULSE 62; RESP 18; TEMP 36.8; O2SAT 98
--- NOTE | 2024-04-12 03:35 | PC.NURSE ---
pt refused rocephin injection stating she has her fathers truck and needs to leave right now. pt also states she is tired of shots.
== END 2024-04-12 03:37 | disposition home or self-care (01) ==
PROVIDERS: Emergency Provider Emergency Medicine; PCP Physician Assistant
DX: N10 Acute pyelonephritis (principal); B96.89 Other specified bacterial agents as the cause of diseases classified elsewhere; R10.32 Left lower quadrant pain; M54.59 Other low back pain; R35.0 Frequency of micturition; R39.15 Urgency of urination; F17.210 Nicotine dependence, cigarettes, uncomplicated; Z87.442 Personal history of urinary calculi
CPT/HCPCS: 74176; 81001; 87086; 96372; 99284; J0696; J2270

== ENCOUNTER 2024-04-14 11:40 | Outpatient (CLI) | payer OTHER, SELFPAY ==
[2024-04-14 18:30] LABS: Hemoglobin A1C 5.1 % (4.0-6.0)
[2024-04-14 18:42] LABS: HCG,Quantitative 9 mIU/ml (0-5.42)
== END 2024-04-14 23:59 | disposition home or self-care (01) ==
LOC: LAB.DROPOF 04-17 11:41
PROVIDERS: PCP Family Medicine; Visit Provider Family Medicine
DX: N20.0 Calculus of kidney (principal)
CPT/HCPCS: 83036; 84702

== ENCOUNTER 2024-05-07 14:44 | Emergency (ER) | payer MEDICAID, SELFPAY ==
[2024-05-07 14:44] VITALS: BP 115/85; PULSE 89; RESP 16; TEMP 36.8; O2SAT 96; BMI 38.9
--- NOTE | 2024-05-07 14:44 | HMH.EDGENADL ---
Discharge Plan Disposition Patient Disposition: Left Against Medical Advice Prescriptions Prescriptions: No Action gabapentin 300 mg capsule 300 mg PO TID Qty: 90 0RF hydrocodone-acetaminophen 5-325 mg tablet 1 tab PO BID PRN (Reason: pain) Qty: 6 0RF bisoprolol fumarate 5 mg tablet See Rx Instructions .ROUTE .COMPLEX Qty: 90 3RF Dose Instruction: TAKE 1 TABLET BY MOUTH ONCE DAILY FOR HYPERTENSION -NEEDS FOLLOW UP APPOINTMENT FOR REFILLS- Rx Instructions: TAKE 1 TABLET BY MOUTH ONCE DAILY FOR HYPERTENSION aspirin 81 mg tablet,delayed release (DR/EC) See Rx Instructions .ROUTE .COMPLEX Qty: 30 1RF Dose Instruction: TAKE 1 TABLET BY MOUTH DAILY FOR HEART HEALTH Rx Instructions: TAKE 1 TABLET BY MOUTH DAILY FOR HEART HEALTH ondansetron HCl 4 mg tablet 4 mg PO Q8H PRN (Reason: nausea and vomiting) 5 Days Qty: 30 0RF cefdinir 300 mg capsule 300 mg PO BID 7 Days Qty: 14 0RF ibuprofen 800 mg tablet 800 mg PO Q8H PRN (Reason: pain) Qty: 15 0RF Rx Instructions: Take with food. Clinical Impressions Clinical Impression: Abdominal pain, acute, Abdominal discomfort Instructions Patient Instructions: DI for Acute Abdominal Pain Print Language Print Language: Estonian Discharge ED Provider: Ben Biswas General Adult HPI <AME Martínez - Last Filed: 05/07/24 15:40> General Chief complaint: Abdominal Pain Stated complaint: Abd pain, N/V Time Seen by Provider: 05/07/24 14:51 History of Present Illness HPI narrative: Patient presents for evaluation of acute abdominal pain. Patient states that she was awoken from sleep with generalized acute abdominal pain nausea and vomiting. Patient states that she also had coffee-ground emesis. She denies any diarrhea. She denies chest pain fever chills hemoptysis hematochezia melena. Patient states that she takes an aspirin today for an irregular heart beat . Patient has had a cholecystectomy appendectomy and total abdominal hysterectomy. Related Data Previous Rx's ?Medication ?Instructions ?Recorded gabapentin 300 mg capsule 300 mg PO TID #90 caps 09/10/23 ondansetron HCl 4 mg tablet 4 mg PO Q8H PRN nausea and 04/12/24 vomiting 5 days #30 tabs aspirin 81 mg tablet,delayed See Rx Instructions .Route 04/13/24 release .COMPLEX #30 tabs bisoprolol fumarate 5 mg tablet See Rx Instructions .Route 04/13/24 .COMPLEX #90 tabs hydrocodone 5 mg-acetaminophen 325 1 tab PO BID PRN pain #6 tabs 04/14/24 mg tablet cefdinir 300 mg capsule 300 mg PO BID UTI 7 days #14 caps 04/21/24 ibuprofen 800 mg tablet 800 mg PO Q8H PRN pain #15 tabs 04/21/24 Allergies Allergy/AdvReac Type Severity Reaction Status Date / Time buprenorphine [From Suboxone] Allergy Intermediate Vomiting Verified 04/20/24 11:05 naloxone [From Suboxone] Allergy Intermediate Vomiting Verified 04/20/24 11:05 ketorolac [From TORADOL] Allergy Mild Verified 04/20/24 11:05 tramadol [TRAMADOL] Allergy Mild Verified 04/20/24 11:05 diphenhydramine Allergy Unknown I-HIVES Verified 04/20/24 11:05 [From BENADRYL] [facility] <AME Martínez - Last Filed: 05/07/24 15:40> [facility] Disclaimer: The information contained in this section may have been updated after the patient was seen, as this information can be updated by other users. Medical History Kidney stones Patient left without being seen Postoperative pain Otitis media Abdominal pain Foot callus Cellulitis Patient left without being seen Trichomonal vaginitis Postoperative abdominal pain Dysmenorrhea Menorrhagia Right lower quadrant pain Dysfunctional uterine bleeding Flank pain Palpitations SOB (shortness of breath) Concussion without loss of consciousness Microhematuria Acute right flank pain Degenerative joint disease (DJD) of lumbar spine Patient left without being seen Otitis externa Lumbar disc disease Tachycardia Back pain Dy
[2024-05-07 15:08] LABS: Basophils # 0.1 K/mm3 (0-0.2); Basophils % 0.6 % (0.1-2.0); Eosinophils # 0.1 K/mm3 (0.0-0.4); Eosinophils % 1.2 % (0.1-12.0); Hemoglobin 14.2 g/dL (12.2-16.2); Lymphocytes # 1.9 K/mm3 (0.7-4.5); Lymphocytes % 22.7 % (10-50); Mean Corpuscular Hemoglobin 31.5 pg (27.0-31.2); Mean Corpuscular Volume 101.8 fl (81-99); Mean Platelet Volume 9.3 fl (7.4-10.4); Monocytes # 0.4 K/mm3 (0.1-1.0); Monocytes % 4.4 % (1.7-9.3); Neutrophils # 5.9 K/mm3 (1.8-7.8); Platelet Count 296 K/mm3 (142-424); Red Blood Count 4.52 M/mm3 (4.20-5.40); Red Cell Distribution Width 12.7 % (11.5-17.5); White Blood Count 8.4 K/mm3 (4.8-10.8)
[2024-05-07 15:21] LABS: HCG Qualitative, Serum Negative (Negative)
[2024-05-07 15:23] LABS: Albumin Level 4.3 g/dl (3.5-5.0); Chloride 111 mmol/L (98-107); INR 0.96 (0.9-1.1); Prothrombin Time 10.8 seconds (10.1-12.5); Sodium 140 mmol/L (136-145)
[2024-05-07 15:24] LABS: Potassium 3.9 mmoL/L (3.5-5.1)
[2024-05-07 15:26] LABS: Alanine Aminotransferase 23 U/L (12-78); Albumin/Globulin Ratio 1.4 (1.1-1.8); Alkaline Phosphatase 73 U/L (38-126); Anion Gap 8.9 mEq/L (5-15); Aspartate Amino Transferase 28 U/L (14-36); Bilirubin,Total 0.7 mg/dl (0.2-1.3); Blood Urea Nitrogen 10 mg/dl (7-17); Carbon Dioxide 24 mmol/L (22.0-30.0); Creatinine Clearance Estimated 188 mL/min (50-200); Estimated Glomerular Filt Rate 100 ml/min (>60); GFR (African American) 121 ML/MIN (>60); Globulin 3.1 g/dL (1.3-3.2); Total Protein,Serum 7.4 g/dl (6.3-8.2)
[2024-05-07 15:27] LABS: Calcium 9.1 mg/dl (8.4-10.2); Glucose 105 mg/dl (74-100); Lipase 36 U/L (23-300)
--- NOTE | 2024-05-07 15:30 | PC.NURSE ---
Pt states my ride is here and my IV is burning I want it out and I have to go . Lenin Crenshaw PA-C and Mustapha Billingsley RN at bedside discussing care. Pt states she understands she could be having an emergent issue with GI bleed but still wants to leave. IV removed from left AC and pt signed AMA form.
[2024-05-07 15:31] VITALS: BP 0/0; PULSE 0; RESP 18; TEMP -17.7; TEMP 0; O2SAT 97
== END 2024-05-07 15:33 | disposition left against medical advice (07) ==
PROVIDERS: Physician Assistant; Emergency Provider Emergency Medicine
DX: R10.84 Generalized abdominal pain (principal); R11.2 Nausea with vomiting, unspecified; N80.9 Endometriosis, unspecified; F17.210 Nicotine dependence, cigarettes, uncomplicated
CPT/HCPCS: 80053; 83690; 83735; 84703; 85025; 85610; 96361; 96374; 96375; 99285; J0131; J2405; J7120

== ENCOUNTER 2024-06-18 20:17 | Emergency (ER) | payer OTHER, SELFPAY ==
[2024-06-18 20:26] VITALS: BP 136/89; PULSE 101; RESP 18; TEMP 36.8; O2SAT 95; BMI 38.9
--- NOTE | 2024-06-18 20:32 | HMH.EDGENADL ---
Discharge Plan Disposition Patient Disposition: Home, Self-Care Condition: Good Prescriptions Prescriptions: New cefdinir 300 mg capsule 300 mg PO BID 10 Days Qty: 20 0RF ondansetron 4 mg tablet,disintegrating 4 mg PO Q8H PRN (Reason: nausea and vomiting) 3 Days Qty: 10 0RF No Action gabapentin 300 mg capsule 300 mg PO TID Qty: 90 0RF hydrocodone-acetaminophen 5-325 mg tablet 1 tab PO BID PRN (Reason: pain) Qty: 6 0RF bisoprolol fumarate 5 mg tablet See Rx Instructions .ROUTE .COMPLEX Qty: 90 3RF Dose Instruction: TAKE 1 TABLET BY MOUTH ONCE DAILY FOR HYPERTENSION -NEEDS FOLLOW UP APPOINTMENT FOR REFILLS- Rx Instructions: TAKE 1 TABLET BY MOUTH ONCE DAILY FOR HYPERTENSION aspirin 81 mg tablet,delayed release (DR/EC) See Rx Instructions .ROUTE .COMPLEX Qty: 30 1RF Dose Instruction: TAKE 1 TABLET BY MOUTH DAILY FOR HEART HEALTH Rx Instructions: TAKE 1 TABLET BY MOUTH DAILY FOR HEART HEALTH ondansetron HCl 4 mg tablet 4 mg PO Q8H PRN (Reason: nausea and vomiting) 5 Days Qty: 30 0RF cefdinir 300 mg capsule 300 mg PO BID 7 Days Qty: 14 0RF ibuprofen 800 mg tablet 800 mg PO Q8H PRN (Reason: pain) Qty: 15 0RF Rx Instructions: Take with food. Referrals Follow up/Referrals: Gary Flanagan MD [Primary Care Provider] - See instructions Activity Restrictions/Add. Instructions Additional Instructions/Restrictions: You were seen for a UTI. Please follow up with your doctor this week. Return for any vomiting/ fever or worsening pain. Clinical Impressions Clinical Impression: UTI (urinary tract infection) Instructions Patient Instructions: DI for Urinary Tract Infection (UTI) Print Language Print Language: Greenlandic Discharge ED Provider: Sophy Campos General Adult HPI General Chief complaint: Back Pain/Injury Stated complaint: back pain, nausea Time Seen by Provider: 06/18/24 20:23 Mode of Arrival: Ambulatory Source of Information: Patient Limitations: No Limitations Description of Symptoms (Recalled from ER Triage Doc. by RN): Pt reports to ED with cc of back pain and shoulder pain that started today. Pt states also having N&V. Pt states taking a Flexeril at approx 1200 with no relief. Pt states having a hx of kidney stones and degenerative discs. History of Present Illness HPI narrative: Patient presents complaining of right flank pain, nausea and vomiting, decreased urine output. She has a history of ureteral stones. She reports she has also had bilateral posterior shoulder pain for several days. She has taken Flexeril without improvement. Denies any fever. Denies any dysuria. She does note hematuria. MD complaint: flank pain Onset (ago): day(s) Location: back Radiation: abdomen Severity: moderate Consistency: constant Relieving factors: none Exacerbating factors: none Associated symptoms: nausea/vomiting; negative fever/chills Related Data Previous Rx's ?Medication ?Instructions ?Recorded gabapentin 300 mg capsule 300 mg PO TID #90 caps 09/10/23 ondansetron HCl 4 mg tablet 4 mg PO Q8H PRN nausea and 04/12/24 vomiting 5 days #30 tabs aspirin 81 mg tablet,delayed See Rx Instructions .Route 04/13/24 release .COMPLEX #30 tabs bisoprolol fumarate 5 mg tablet See Rx Instructions .Route 04/13/24 .COMPLEX #90 tabs hydrocodone 5 mg-acetaminophen 325 1 tab PO BID PRN pain #6 tabs 04/14/24 mg tablet cefdinir 300 mg capsule 300 mg PO BID UTI 7 days #14 caps 04/21/24 ibuprofen 800 mg tablet 800 mg PO Q8H PRN pain #15 tabs 04/21/24 cefdinir 300 mg capsule 300 mg PO BID 10 days #20 caps 06/18/24 ondansetron 4 mg disintegrating 4 mg PO Q8H PRN nausea and 06/18/24 tablet vomiting 3 days #10 tabs Allergies Allergy/AdvReac Type Severity Reaction Status Date / Time buprenorphine [From Suboxone] Allergy Intermediate Vomiting Verified 04/20/24 11:05 naloxone [From Suboxone] Allergy Intermediate Vomiting Verified 04/20/24 11:05 ketorolac [From TORADOL] Allergy Mild Verified 04/20/24 11:05 tramadol [TRAMADOL] Allergy Mild Verified 04/20/24 11:05 diphenhydramine Allergy Unknown I-HIVES Verified 04/20/24 11:05 [From BENADRYL] [facility] Disclaimer: The information contained in this section may have been updated after the patient was seen, as this information can be updated by other users. Medical History Kidney stones Patient left without being seen Postoperative pain Otitis media Abdominal pain Foot callus Cellulitis Patient left without being seen Trichomonal vaginitis Postoperative abdominal pain Dysmenorrhea Menorrhagia Right lower quadrant pain Dysfunctional uterine bleeding Flank pain Palpitations SOB (shortness of breath) Concussion without loss of consciousness Microhematuria Acute right flank pain Degenerative joint disease (DJD) of lumbar spine Patient left without being seen Otitis externa Lumbar disc disease Tachycardia Back pain Dyspnea Chest pain Atypical chest pain Ovarian cyst Trichomonal cystitis Abdominal pain of unknown etiology Bilious vomiting Vomiting Closed fracture of tuft of distal phalanx of finger Pelvic pain UTI (urinary tract infection) Renal colic on left side Endometriosis Surgical History Hx of tonsillectomy History of cholecystectomy History of appendectomy H/O hysterectomy with oophorectomy [place] teeth extracted S/P appendectomy S/P hysterectomy Family History Mother Diabetes Hypertension Grandmother Cancer ovarian and breast Father Cancer Hypertension Diabetes Social History Smoking Status: Current every day smoker tobacco type: cigarettes packs per day: 1 alcohol intake: never counseling provided: none substance use type: denies use current occupational status: employed and other Travel in the last 8 weeks: None household members: spouse housing: house current occupational exposures/hazards: No caffeine: Yes Other Medical History Have you received the Flu Vaccine for this season: No Have you received the Pneumonia Vaccine: No ROS Obtained: Yes Systems reviewed as appropriate & no additional complaints except as documented Physical Exam General General appearance: alert and in no apparent distress Head Head exam: atraumatic and normocephalic Eye Eye exam: Present normal appearance and EOMI Chest Chest inspection: Present symmetric chest wall rise Respiratory Respiratory exam: Present normal lung sounds bilaterally; Absent wheezes or stridor Cardiovascular Cardiovascular exam: Present regular rate and normal rhythm; Absent systolic murmur Abdominal Exam Abdominal exam: Present soft; Absent distention or tenderness Extremities Exam Extremities exam: Present full ROM Neurological Exam Neurological exam: Present alert and oriented X3 Psychiatric Psychiatric exam: Present normal affect and normal mood Skin Skin exam: Present warm, dry and intact Medical Decision Making Medical Records Screening: Per USPSTF and CDC recommendations, given the prevalence of disease in our region, it is our hospital?s policy to screen for HIV and viral Hepatitis for all patients aged 18 and over and those with ongoing risk factors. Flank pain in summary patient is a 29-year-old female who presents the emergency department for evaluation of right flank pain. Patient is hemodynamically stable upon arrival, afebrile. Right CVA tenderness, right upper and right lower quadrant tenderness. Differential diagnosis includes UTI, ureteral stone, musculoskeletal pain. Initial workup will be conducted with labs, urinalysis, CT abdomen pelvis. Initial inventions include morphine, fluid bolus. Initial workup reviewed by me reveals 3+ leukocytes in urine. Patient had some relief with morphine, requesting more pain medication. CTAP shows small renal stone, pain likely due to UTI. Given this [patient is appropriate for discharge at this time will be discharged with a prescription for cefdinir and zofran. Follow up with PCP this week. I informally interpreted the patient's CT read and is remarkable for small renal stone. Aram Inquiry Pt receiving controlled substance: No Vital Signs: 06/18/24 20:26 Temperature 98.3 F Temperature Source Oral Pulse Rate [Left Radial] 101 H Respiratory Rate 18 Blood Pressure [Right Arm] 136/89 Blood Pressure Mean [Right Arm] 104 Blood Pressure Source [Right Arm] Automatic Cuff 02 Sat by Pulse Oximetry 95 Oxygen Delivery Method Room Air Lab Data Lab Results 06/18/24 20:22: Urine Color Yellow, Urine Appearance Slightly cloudy, Urine pH 6.5, Ur Specific [place] 1.010, Urine Protein Negative, Urine Glucose (UA) Negative, Urine Ketones Negative, Urine Blood 1+ A, Urine Nitrate Negative, Urine Bilirubin Negative, Urine Urobilinogen 0.2, Ur Leukocyte Esterase 3+ A, Urine RBC Occasional, Urine WBC 5-10, Ur Squamous Epith Cells 5-10, Urine Bacteria 1+, Urine HCG, Qual Negative 06/18/24 21:00: WBC 7.5, RBC 4.65, Hgb 14.6, Hct 44.5, MCV 95.7, MCH 31.4 H, MCHC 32.8, RDW 12.5, Plt Count 279, MPV 9.9, Neut % (Auto) 66.8, Lymph % (Auto) 26.6, [place] % (Auto) 5.3, Eos % (Auto) 0.7, Baso % (Auto) 0.6, Neut # (Auto) 5.0, Lymph # (Auto) 2.0, [place] # (Auto) 0.4, Eos # (Auto) 0.1, Baso # (Auto) 0.1, Sodium 138, Potassium 3.8, Chloride 107, Carbon Dioxide 26, Anion Gap 8.8, BUN 7, Creatinine 0.70, Estimated Creat Clear 187, Estimated GFR 99, Est GFR ( Amer) 120, Glucose 103 H, Calcium 9.6, Total Bilirubin 0.7, AST 28, ALT 26, Alkaline Phosphatase 63, Total Protein 7.4, Albumin 4.4, Globulin 3.0, Albumin/Globulin Ratio 1.5, Lipase 38 06/18/24 21:00 06/18/24 21:00 Orders (Tests/Meds): ED MEDICATIONS Generic Name Dose Route Start Last Admin Trade Name Freq PRN Reason Stop Dose Admin Ceftriaxone Sodium 1 gm/ 50 mls @ 100 mls/hr 06/18/24 22:15 06/18/24 22:19 Sodium Chloride IV 06/28/24 22:14 100 mls/hr Q24H MARGUERITE Administration Discontinued Medications Generic Name Dose Route Start Last Admin Trade Name Freq PRN Reason Stop Dose Admin Sodium Chloride 1,000 mls @ 999 mls/hr 06/18/24 20:44 06/18/24 20:59 Sod Chlor 0.9% 1000ml Bag IV 06/18/24 21:44 999 mls/hr .Q1H1M ONE Administration Morphine Sulfate 4 mg 06/18/24 20:32 06/18/24 21:00 Morphine 4mg/Ml Syringe IV 06/18/24 20:33 4 mg ONCE ONE Administration Ondansetron HCl 4 mg 06/18/24 20:44 06/18/24 21:00 Ondansetron 4mg/2ml Vial IV 06/18/24 20:45 4 mg ONCE ONE Administration ORDERS Category Date Time Status CT abdomen pelvis wo con Stat Cat Scan 06/18/24 20:33 Completed Complete Blood Count Auto Diff Stat Lab 06/18/24 21:00 Completed Comprehensive Metabolic Panel Stat Lab 06/18/24 21:00 Completed HIV (1&2) Antibody Rapid Stat Lab 06/18/24 22:13 Received Hep C Ab with Reflex to RNA Stat Lab 10/06/24 22:13 Received Lipase Stat Lab 06/18/24 21:00 Completed Urinalysis and Microscopic Stat Lab 06/18/24 20:22 Completed Urine , HCG Qual. Stat Lab 06/18/24 20:22 Completed Urine Culture Stat Micro 06/18/24 20:22 Received Critical Care Critical Care Time Critical Care Time: No
--- NOTE | 2024-06-18 20:33 | CT_ITS ---
PROCEDURE INFORMATION: Exam: CT Abdomen And Pelvis Without Contrast Exam date and time: 06/18/2024 8:47 PM Age: 29 years old Clinical indication: Abdominal pain; Flank; Right; Additional info: Right flank pain, history of renal stones TECHNIQUE: Imaging protocol: Computed tomography of the abdomen and pelvis without contrast. Radiation optimization: All CT scans at this facility use at least one of these dose optimization techniques: automated exposure control; mA and/or kV adjustment per patient size (includes targeted exams where dose is matched to clinical indication); or iterative reconstruction. COMPARISON: CT ABDOMEN PELVIS W CON 04/21/2024 9:40 PM FINDINGS: Lungs: No focal abnormalities at the lung bases. Esophagus: The esophagus is normal. Liver: Normal. No mass. Gallbladder and biliary ducts: There has been a cholecystectomy. Pancreas: Pancreas appears normal. Spleen: Scattered splenic calcified granulomas. Adrenal glands: The adrenal glands appear normal. Kidneys and ureters: Small 3 mm inferior pole nonobstructing right renal stone. No hydronephrosis . Stomach and bowel: Nonspecific bowel gas pattern. The stomach is normal. Appendix: There has been an appendectomy. Intraperitoneal space: Unremarkable. No free air. No significant fluid collection. Vasculature: Unremarkable. No abdominal aortic aneurysm. Lymph nodes: No free air or fluid or adenopathy. Urinary bladder: The bladder is normal. Reproductive: Essure devices in the fallopian tubes. Prior hysterectomy. Bones/joints: Unremarkable. No acute fracture. Soft tissues: Unremarkable. IMPRESSION: 1. No free air or fluid or adenopathy. 2. Small 3 mm inferior pole nonobstructing right renal stone. No hydronephrosis . 3. Nonspecific bowel gas pattern.
[2024-06-18 20:49] LABS: Microscopic, Urine URINE MICROSCOPIC (MICROSCOPIC)
[2024-06-18] MEDS: 0.9 % SODIUM CHLORIDE 1000ML 1,000 ML 999 ML IV (20:59)
[2024-06-18] MEDS: MORPHINE 4MG/ML SYRINGE 4 MG IV (21:00)
[2024-06-18] MEDS: ONDANSETRON 4MG/2ML VIAL 4 MG IV (21:00)
[2024-06-18 21:30] LABS: Bilirubin,Urine Negative (Negative); Blood, Urine 1+ (Negative); Color,Urine YELLOW (Yellow); Glucose,Urine (UA) Negative (Negative); Ketones,Urine Negative (Negative); Leukocyte Esterase,Urine 3+ (Negative); Nitrate,Urine Negative (Negative); PH,Urine 6.5 (5.0-8.5); Protein,Urine Negative (Negative); Urine Pregnancy, HCG Qual. Negative (Negative); Urobilinogen,Urine 0.2 EU/dl (0.2)
[2024-06-18 21:31] LABS: Appearance,Urine Slightly Cloudy (Clear)
[2024-06-18 21:32] LABS: Lipase 38 U/L (23-300)
[2024-06-18 21:33] LABS: Alanine Aminotransferase 26 U/L (12-78); Albumin Level 4.4 g/dl (3.5-5.0); Albumin/Globulin Ratio 1.5 (1.1-1.8); Alkaline Phosphatase 63 U/L (38-126); Aspartate Amino Transferase 28 U/L (14-36); Bilirubin,Total 0.7 mg/dl (0.2-1.3); Blood Urea Nitrogen 7 mg/dl (7-17); Calcium 9.6 mg/dl (8.4-10.2); Carbon Dioxide 26 mmol/L (22.0-30.0); Chloride 107 mmol/L (98-107); Creatinine Clearance Estimated 187 mL/min (50-200); Estimated Glomerular Filt Rate 99 ml/min (>60); GFR (African American) 120 ML/MIN (>60); Glucose 103 mg/dl (74-100); Sodium 138 mmol/L (136-145); Total Protein,Serum 7.4 g/dl (6.3-8.2)
[2024-06-18 21:46] LABS: Basophils # 0.1 K/mm3 (0-0.2); Basophils % 0.6 % (0.1-2.0); Eosinophils # 0.1 K/mm3 (0.0-0.4); Eosinophils % 0.7 % (0.1-12.0); Hematocrit 44.5 % (37.0-47.0); Hemoglobin 14.6 g/dL (12.2-16.2); Lymphocytes % 26.6 % (10-50); Mean Corpuscular HGB Conc 32.8 g/dL (31.8-35.4); Mean Corpuscular Hemoglobin 31.4 pg (27.0-31.2); Mean Corpuscular Volume 95.7 fl (81-99); Mean Platelet Volume 9.9 fl (7.4-10.4); Monocytes # 0.4 K/mm3 (0.1-1.0); Monocytes % 5.3 % (1.7-9.3); Neutrophils % 66.8 % (37.0-80.0); Platelet Count 279 K/mm3 (142-424); Red Blood Count 4.65 M/mm3 (4.20-5.40); Red Cell Distribution Width 12.5 % (11.5-17.5); White Blood Count 7.5 K/mm3 (4.8-10.8)
[2024-06-18 22:04] LABS: Anion Gap 8.8 mEq/L (5-15); Potassium 3.8 mmoL/L (3.5-5.1)
[2024-06-18] MEDS: CEFTRIAXONE SODIUM 1 GM in 0.9 % SODIUM CHLORIDE 50 ML IV (22:19)
--- NOTE | 2024-06-18 22:21 | PC.NURSE ---
Pt reports having pain reported to CLINICAL PHARMACY MANAGER no new orders at this time.
[2024-06-18 22:53] LABS: RBC,Urine Occasional #/hpf (0-3)
[2024-06-18 22:54] LABS: Bacteria,Urine 1+ /lpf
[2024-06-18 23:31] VITALS: BP 118/79; PULSE 72; RESP 18; TEMP 36.5; O2SAT 100
[2024-06-18 23:33] VITALS: BP 118/79; PULSE 71; O2SAT 100
[2024-06-18 23:58] LABS: HIV (1&2) Antibody Rapid NONREACTIVE (NONREACTIVE)
[2024-06-21 20:10] LABS: HCV Ab Reactive (Non Reactive)
== END 2024-06-18 23:36 | disposition home or self-care (01) ==
PROVIDERS: Physician Assistant; Emergency Provider Student in an Organized Health Care Education/Training Program; PCP Family Medicine
DX: N39.0 Urinary tract infection, site not specified (principal); M54.9 Dorsalgia, unspecified; R10.9 Unspecified abdominal pain; R11.2 Nausea with vomiting, unspecified; R39.12 Poor urinary stream; M25.511 Pain in right shoulder; M25.512 Pain in left shoulder
CPT/HCPCS: 74176; 80053; 81001; 81025; 83690; 85025; 86803; 87086; 87389; 96360; 96374; 96375; 99284; J0696; J2270; J2405; J7030

== ENCOUNTER 2024-07-05 09:12 | Emergency (ER) | payer OTHER, SELFPAY ==
[2024-07-05 10:52] VITALS: BP 0/0; PULSE 0; RESP 0; TEMP -17.7; TEMP 0
== END 2024-07-05 10:53 | disposition left against medical advice (07) ==
PROVIDERS: Emergency Provider Nurse Practitioner Family; PCP Family Medicine
DX: Z53.21 Procedure and treatment not carried out due to patient leaving prior to being seen by health care provider (principal)

== ENCOUNTER 2024-07-05 12:42 | Outpatient (CLI) | payer OTHER, SELFPAY | END 2024-07-05 23:59 | disposition home or self-care (01) | LOC: LAB.DROPOF 07-06 12:43 | PROVIDERS: PCP Internal Medicine; Visit Provider Internal Medicine | DX: N39.0 Urinary tract infection, site not specified (principal) | CPT/HCPCS: 87086 ==

== ENCOUNTER 2024-07-07 16:27 | Emergency (ER) | payer OTHER, SELFPAY ==
[2024-07-07 16:39] VITALS: BP 104/77; PULSE 94; RESP 18; TEMP 36.8; O2SAT 99; BMI 40.5
--- NOTE | 2024-07-07 16:47 | PC.NURSE ---
Dr. Marin at BS for pt eval
--- NOTE | 2024-07-07 16:50 | CT_ITS ---
PROCEDURE INFORMATION: Exam: CT Abdomen And Pelvis Without Contrast Exam date and time: 07/07/2024 5:17 PM Age: 29 years old Clinical indication: Abdominal pain; Prior surgery; Surgery date: 6+ months; Surgery type: Hysterectomy; Additional info: Flank/groin pain TECHNIQUE: Imaging protocol: Computed tomography of the abdomen and pelvis without contrast. Radiation optimization: All CT scans at this facility use at least one of these dose optimization techniques: automated exposure control; mA and/or kV adjustment per patient size (includes targeted exams where dose is matched to clinical indication); or iterative reconstruction. COMPARISON: CT ABDOMEN PELVIS WO CON 06/18/2024 8:47 PM FINDINGS: Liver: Unremarkable. Gallbladder and biliary ducts: Status post cholecystectomy. Pancreas: Unremarkable. Spleen: Unremarkable. Adrenal glands: Unremarkable. Kidneys and ureters: Single punctate (2-3mm) non-obstructing stone in the lower pole of the right kidney, unchanged from prior exam. No other renal or ureteral stones. No hydronephrosis. Stomach and bowel: Unremarkable. Appendix: No evidence of appendicitis. Intraperitoneal space: No free fluid. No pneumoperitoneum. Vasculature: Phleboliths noted in the pelvis. Lymph nodes: Unremarkable. Urinary bladder: Unremarkable. Reproductive: Status post hysterectomy. Bones/joints: No evidence of acute osseous abnormality. Soft tissues: Unremarkable. IMPRESSION: 1. No acute findings in the abdomen or pelvis. 2. Single punctate (2-3mm) non-obstructing stone in the lower pole of the right kidney, unchanged from prior exam.
[2024-07-07 16:59] LABS: Basophils # 0.1 K/mm3 (0-0.2); Basophils % 0.7 % (0.1-2.0); Eosinophils # 0.1 K/mm3 (0.0-0.4); Hematocrit 46.6 % (37.0-47.0); Hemoglobin 15.3 g/dL (12.2-16.2); Lymphocytes # 1.8 K/mm3 (0.7-4.5); Lymphocytes % 20.7 % (10-50); Mean Corpuscular HGB Conc 32.8 g/dL (31.8-35.4); Mean Corpuscular Hemoglobin 31.2 pg (27.0-31.2); Mean Platelet Volume 9.2 fl (7.4-10.4); Monocytes # 0.3 K/mm3 (0.1-1.0); Monocytes % 3.1 % (1.7-9.3); Neutrophils # 6.3 K/mm3 (1.8-7.8); Neutrophils % 74.5 % (37.0-80.0); Platelet Count 337 K/mm3 (142-424); Red Blood Count 4.91 M/mm3 (4.20-5.40); Red Cell Distribution Width 12.5 % (11.5-17.5); White Blood Count 8.5 K/mm3 (4.8-10.8)
[2024-07-07 17:01] LABS: Microscopic, Urine URINE MICROSCOPIC (MICROSCOPIC)
--- NOTE | 2024-07-07 17:02 | HMH.EDGENADL ---
Discharge Plan Disposition Patient Disposition: Home, Self-Care Condition: Good Prescriptions Prescriptions: New metronidazole 500 mg tablet 500 mg PO BID 7 Days Qty: 14 0RF doxycycline hyclate 100 mg tablet 100 mg PO BID 10 Days Qty: 20 0RF phenazopyridine [Pyridium] 200 mg tablet 200 mg PO Q8H PRN (Reason: pain) Qty: 6 0RF ondansetron 4 mg tablet,disintegrating 4 mg PO Q8H PRN (Reason: nausea and vomiting) 4 Days Qty: 12 0RF oxycodone 5 mg tablet 5 mg PO Q8H PRN (Reason: pain) Qty: 8 0RF No Action bisoprolol fumarate 5 mg tablet See Rx Instructions .ROUTE .COMPLEX Qty: 90 3RF Dose Instruction: TAKE 1 TABLET BY MOUTH ONCE DAILY FOR HYPERTENSION -NEEDS FOLLOW UP APPOINTMENT FOR REFILLS- Rx Instructions: TAKE 1 TABLET BY MOUTH ONCE DAILY FOR HYPERTENSION aspirin 81 mg tablet,delayed release (DR/EC) See Rx Instructions .ROUTE .COMPLEX Qty: 30 1RF Dose Instruction: TAKE 1 TABLET BY MOUTH DAILY FOR HEART HEALTH Rx Instructions: TAKE 1 TABLET BY MOUTH DAILY FOR HEART HEALTH ondansetron 4 mg tablet,disintegrating 4 mg PO Q8H PRN (Reason: nausea and vomiting) 3 Days Qty: 10 0RF Referrals Follow up/Referrals: Gary Flanagan MD [Primary Care Provider] - See instructions Activity Restrictions/Add. Instructions Additional Instructions/Restrictions: You were evaluated in the emergency department today. You were diagnosed with trichomonas, which is considered to be a sexually transmitted infection. Please avoid any sort of sexual contact until you have completed treatment. Recommend treatment of all partners as well. Please notify them so that way they can seek treatment. 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 Do not drive or operate heavy machinery while taking narcotic pain medication. Keep your urology follow-up arranged for Wednesday. I also recommend close follow-up with gynecology as well as your primary care provider. 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 These medications can cause nausea, so make sure you take with food. I have sent in Zofran for you to have as needed for nausea and vomiting. Return to the emergency department for new or worsening symptoms. Clinical Impressions Clinical Impression: Trichomonas infection, UTI (urinary tract infection) Stand Alone Forms Stand Alone Forms: Work/School Release Instructions Patient Instructions: DI for Urinary Tract Infection (UTI), DI for Acute Abdominal Pain, DI for Trichomoniasis Print Language Print Language: Malian Discharge ED Provider: [facility] HPI General Chief complaint: Abdominal Pain Stated complaint: Kidney Stones Time Seen by Provider: 07/07/24 16:39 Mode of Arrival: Ambulatory Source of Information: Patient Limitations: No Limitations Description of Symptoms (Recalled from ER Triage Doc. by RN): Pt c/o L flank , LLQ, and pain with voiding. pt states the pain is sharp and 10/10. pt reports that she was dx here 3wks ago with kidney stones. pt states she has consistently strained her urine and has not passed anything. pt states she has some blood in her urine. History of Present Illness HPI narrative: This patient is a 29-year-old female with a history of kidney stones requiring ureteral stent placement in the past as well as prior cholecystectomy, appendectomy, hysterectomy presented to the emergency department for evaluation concern for worsened pain related to kidney stones. Patient states she was seen here 3 weeks ago and diagnosed with kidney stones, and she is awaiting an outpatient urology evaluation on Wednesday. She notes the pain is much worse, especially down in her groin. The pain is so severe she is having nausea. Her pain is 10 out of 10. She is been straining her urine but has not passed anything. She does note she is having blood in her urine. No fevers or other concerns noted. Related Data Previous Rx's ?Medication ?Instructions ?Recorded aspirin 81 mg tablet,delayed See Rx Instructions .Route 04/13/24 release .COMPLEX #30 tabs bisoprolol fumarate 5 mg tablet See Rx Instructions .Route 04/13/24 .COMPLEX #90 tabs ondansetron 4 mg disintegrating 4 mg PO Q8H PRN nausea and 06/18/24 tablet vomiting 3 days #10 tabs doxycycline hyclate 100 mg tablet 100 mg PO BID 10 days #20 tabs 07/07/24 metronidazole 500 mg tablet 500 mg PO BID 7 days #14 tabs 07/07/24 ondansetron 4 mg disintegrating 4 mg PO Q8H PRN nausea and 07/07/24 tablet vomiting 4 days #12 tabs oxycodone 5 mg tablet 5 mg PO Q8H PRN pain #8 tabs 07/07/24 phenazopyridine 200 mg tablet 200 mg PO Q8H PRN pain 6 doses #6 07/07/24 (Pyridium) tabs Allergies Allergy/AdvReac Type Severity Reaction Status Date / Time buprenorphine [From Suboxone] Allergy Intermediate Vomiting Verified 07/05/24 14:18 naloxone [From Suboxone] Allergy Intermediate Vomiting Verified 07/05/24 14:18 ketorolac [From TORADOL] Allergy Mild Verified 07/05/24 14:18 tramadol [TRAMADOL] Allergy Mild Verified 07/05/24 14:18 diphenhydramine Allergy Unknown I-HIVES Verified 07/05/24 14:18 [From BENADRYL] [facility] Disclaimer: The information contained in this section may have been updated after the patient was seen, as this information can be updated by other users. Medical History Kidney stones Patient left without being seen Postoperative pain Otitis media Abdominal pain Foot callus Cellulitis Patient left without being seen Trichomonal vaginitis Postoperative abdominal pain Dysmenorrhea Menorrhagia Right lower quadrant pain Dysfunctional uterine bleeding Flank pain Palpitations SOB (shortness of breath) Concussion without loss of consciousness Microhematuria Acute right flank pain Degenerative joint disease (DJD) of lumbar spine Patient left without being seen Otitis externa Lumbar disc disease Tachycardia Back pain Dyspnea Chest pain Atypical chest pain Ovarian cyst Trichomonal cystitis Abdominal pain of unknown etiology Bilious vomiting Vomiting Closed fracture of tuft of distal phalanx of finger Pelvic pain UTI (urinary tract infection) Renal colic on left side Endometriosis Surgical History Hx of tonsillectomy History of cholecystectomy History of appendectomy H/O hysterectomy with oophorectomy [place] teeth extracted S/P appendectomy S/P hysterectomy Family History Mother Diabetes Hypertension Grandmother Cancer Father Cancer Hypertension Diabetes Social History Smoking Status: Current every day smoker tobacco type: cigarettes packs per day: 1 alcohol intake: never counseling provided: none substance use type: denies use current occupational status: employed and other Travel in the last 8 weeks: None household members: spouse housing: house current occupational exposures/hazards: No caffeine: Yes Other Medical History Have you received the Flu Vaccine for this season: No Have you received the Pneumonia Vaccine: No ROS Obtained: Yes All systems reviewed & no additional complaints except as documented Physical Exam General General appearance: alert, in no apparent distress and obese Comment: Uncomfortable appearing Head Head exam: atraumatic and normocephalic Eye Eye exam: Present normal appearance, PERRL and EOMI ENT ENT exam: Present normal exam, normal oropharynx, mucous membranes moist and normal external ear exam Neck Neck exam: Present normal inspection, full ROM and trachea midline; Absent tenderness Chest Chest inspection: Present normal inspection and symmetric chest wall rise; Absent tenderness Respiratory Respiratory exam: Present normal lung sounds bilaterally; Absent respiratory distress, wheezes, stridor or accessory muscle use Cardiovascular Cardiovascular exam: Present regular rate and normal rhythm Abdominal Exam Abdominal exam: Present soft; Absent distention, tenderness or guarding Extremities Exam Extremities exam: Present normal inspection, full ROM and normal capillary refill; Absent tenderness or edema Back Exam Back exam: Present normal inspection and full ROM; Absent tenderness Neurological Exam Neurological exam: Present alert, oriented X3, CN II-XII intact and normal gait; Absent motor sensory deficit Psychiatric Psychiatric exam: Present normal affect and normal mood Skin Skin exam: Present warm and dry Medical Decision Making Medical Records Medical records reviewed: Yes I reviewed the patient's medical records. Screening: Per USPSTF and CDC recommendations, given the prevalence of disease in our region, it is our hospital?s policy to screen for HIV and viral Hepatitis for all patients aged 18 and over and those with ongoing risk factors. Aram Inquiry Pt receiving controlled substance: Yes Aram was queried for this patient: Yes Risks and benefits of using a controlled substance: were discussed with pt by me Vital Signs: 07/07/24 16:39 07/07/24 17:23 07/07/24 18:18 Temperature 98.2 F Temperature Source Oral Pulse Rate 81 86 Pulse Rate [Left] 94 H Respiratory Rate 18 Blood Pressure 114/81 120/84 Blood Pressure [Right Arm] 104/77 L Blood Pressure Mean [Right Arm] 86 Blood Pressure Source [Right Arm] Automatic Cuff Blood Pressure Position [Right Arm] Sitting 02 Sat by Pulse Oximetry 99 95 97 Oxygen Delivery Method Room Air Room Air Room Air 07/07/24 19:02 Temperature 98.2 F Temperature Source Pulse Rate 84 Pulse Rate [Left] Respiratory Rate 18 Blood Pressure 111/79 Blood Pressure [Right Arm] Blood Pressure Mean [Right Arm] Blood Pressure Source [Right Arm] Blood Pressure Position [Right Arm] 02 Sat by Pulse Oximetry Oxygen Delivery Method Lab Data Lab results reviewed: Yes I reviewed the patient's lab results. Lab Results 07/07/24 16:36: Urine Color Yellow, Urine Appearance Clear, Urine pH 7.0, Ur Specific [place] 1.015, Urine Protein Negative, Urine Glucose (UA) Negative, Urine Ketones Negative, Urine Blood 2+ A, Urine Nitrate Negative, Urine Bilirubin Negative, Urine Urobilinogen 0.2, Ur Leukocyte Esterase 3+ A, Urine RBC 50-100, Urine WBC Tntc, Ur Squamous Epith Cells 20-50, Urine Bacteria 4+, Urine Trichomonas 2+ 07/07/24 16:46: WBC 8.5, RBC 4.91, Hgb 15.3, Hct 46.6, MCV 95.0, MCH 31.2, MCHC 32.8, RDW 12.5, Plt Count 337, MPV 9.2, Neut % (Auto) 74.5, Lymph % (Auto) 20.7, [place] % (Auto) 3.1, Eos % (Auto) 1.0, Baso % (Auto) 0.7, Neut # (Auto) 6.3, Lymph # (Auto) 1.8, [place] # (Auto) 0.3, Eos # (Auto) 0.1, Baso # (Auto) 0.1, Sodium 139, Potassium 4.4, Chloride 108 H, Carbon Dioxide 23, Anion Gap 12.4, BUN 9, Creatinine 0.70, Estimated Creat Clear 194, Estimated GFR 99, Est GFR ( Amer) 120, Glucose 127 H, Calcium 9.7, Total Bilirubin 0.6, AST 30, ALT 25, Alkaline Phosphatase 91, Total Protein 7.9, Albumin 4.7, Globulin 3.2, Albumin/Globulin Ratio 1.5, Lipase 40, Serum HCG, Qual Negative 07/07/24 16:46 07/07/24 16:46 Orders (Tests/Meds): ED MEDICATIONS Discontinued Medications Generic Name Dose Route Start Last Admin Trade Name Freq PRN Reason Stop Dose Admin Doxycycline Hyclate 100 mg 07/07/24 18:20 07/07/24 18:51 Doxycycline Hycl 100 Mg Tablet PO 07/07/24 18:21 100 mg ONCE ONE Administration Ceftriaxone Sodium 2 gm/ 100 mls @ 200 mls/hr 07/07/24 18:19 07/07/24 18:50 Sodium Chloride IV 07/07/24 18:48 200 mls/hr ONCE ONE Administration Metronidazole 500 mg 07/07/24 18:19 07/07/24 18:51 Metronidazole 500 Mg Tablet PO 07/07/24 18:20 500 mg ONCE ONE Administration Morphine Sulfate 4 mg 07/07/24 16:50 07/07/24 17:18 Morphine 4mg/Ml Syringe IV 07/07/24 16:51 4 mg ONCE ONE Administration Ondansetron HCl 4 mg 07/07/24 16:50 07/07/24 17:17 Ondansetron 4mg/2ml Vial IV 07/07/24 16:51 4 mg ONCE ONE Administration Oxycodone HCl 5 mg 07/07/24 18:29 07/07/24 18:51 Oxycodone 5mg Immediate Release Tablet PO 07/07/24 18:30 5 mg ONCE ONE Administration Phenazopyridine HCl 200 mg 07/07/24 18:29 07/07/24 18:51 Phenazopyridine 200mg Tablet PO 07/07/24 18:30 200 mg ONCE ONE Administration ORDERS Category Date Time Status CT abdomen pelvis wo con Stat Cat Scan 07/07/24 16:50 Completed Complete Blood Count Auto Diff Stat Lab 07/07/24 16:46 Completed Comprehensive Metabolic Panel Stat Lab 07/07/24 16:46 Completed Lipase Stat Lab 07/07/24 16:46 Completed Serum [HCG Qualitative, Serum] Stat Lab 07/07/24 16:46 Completed UA [Urinalysis and Microscopic] Stat Lab 07/07/24 16:36 Completed Urine Culture Stat Micro 07/07/24 16:56 Received Medical Decision Narrative: In summary, this patient is a 29-year-old female presenting to the Emergency Department for evaluation of flank and groin pain in the setting of known diagnoses of kidney stone. Differential diagnoses considered include but are not limited to urolithiasis, pyelonephritis, ARTEMIO, urinary tract infection. Ruling out the most morbid conditions drove assessment. I reviewed patient's past medical records and noted previous evaluations for kidney stones in the past. I noted last imaging was from 06/18/2024 and showed renal stones but no ureteral stones. No obstruction or hydronephrosis noted. On exam, the patient is uncomfortable appearing. Workup included CBC, CMP, lipase, urinalysis, urine culture, and CT abdomen pelvis without IV contrast. She was given IV morphine and Zofran for symptomatic improvement. She notes she is allergic to Toradol.. I independently interpreted CT scan prior to the radiologist read and noted renal stone but no obvious ureteral stone. Please see their read for final interpretation. Labs were obtained that demonstrated no significant leukocytosis, no ARTEMIO. Urine is positive for trichomonas. Grossly contaminated with skin cells, but she has significant amount of white blood cells and red blood cells as well as her urinary symptoms. She is already on cephalosporin as an outpatient to treat UTI. Will treat empirically for STIs with IV Rocephin, oral doxycycline, oral Flagyl to treat trichomonas specifically. She was counseled on STIs and prevention as well as notifying sexual partners and avoiding intercourse. On reassessment, the patient has continued significant pain. Given this, she was given oral oxycodone. I advised her that her renal stone is likely not causing any significant pain given that it is not obstructing, however she advises that her primary care provider told her that it could be causing her symptoms. She states that she has always had issues passing stones and is awaiting urology recommendations for this on Wednesday. She states that she was advised if she came to the ED she could get a short course of pain medication to hold her through until Wednesday. I advised her that typically we do not treat ureteral stones with pain medication, but given her significant pain I will provide her with a very brief course of pain medication. I am also going to send her home with prescriptions for Flagyl, doxycycline, Zofran, and Pyridium. She was given instructions to for continued close follow-up, strict return precautions, and she was discharged after all questions were answered. Critical Care Critical Care Time Critical Care Time: No
[2024-07-07 17:04] LABS: Appearance,Urine CLEAR (Clear); Bilirubin,Urine Negative (Negative); Blood, Urine 2+ (Negative); Color,Urine YELLOW (Yellow); Glucose,Urine (UA) Negative (Negative); Ketones,Urine Negative (Negative); Leukocyte Esterase,Urine 3+ (Negative); Nitrate,Urine Negative (Negative); Protein,Urine Negative (Negative); Specific Gravity, Urine 1.015 (1.005-1.030); Urobilinogen,Urine 0.2 EU/dl (0.2)
[2024-07-07 17:05] LABS: Albumin Level 4.7 g/dl (3.5-5.0); Chloride 108 mmol/L (98-107); Potassium 4.4 mmoL/L (3.5-5.1); Sodium 139 mmol/L (136-145)
[2024-07-07 17:07] LABS: Blood Urea Nitrogen 9 mg/dl (7-17); Creatinine Clearance Estimated 194 mL/min (50-200); Estimated Glomerular Filt Rate 99 ml/min (>60); GFR (African American) 120 ML/MIN (>60)
[2024-07-07 17:08] LABS: Alanine Aminotransferase 25 U/L (12-78); Albumin/Globulin Ratio 1.5 (1.1-1.8); Alkaline Phosphatase 91 U/L (38-126); Anion Gap 12.4 mEq/L (5-15); Aspartate Amino Transferase 30 U/L (14-36); Bilirubin,Total 0.6 mg/dl (0.2-1.3); Calcium 9.7 mg/dl (8.4-10.2); Carbon Dioxide 23 mmol/L (22.0-30.0); Globulin 3.2 g/dL (1.3-3.2); Glucose 127 mg/dl (74-100); Lipase 40 U/L (23-300); Total Protein,Serum 7.9 g/dl (6.3-8.2)
[2024-07-07] MEDS: ONDANSETRON 4MG/2ML VIAL 4 MG IV (17:17)
[2024-07-07] MEDS: MORPHINE 4MG/ML SYRINGE 4 MG IV (17:18)
[2024-07-07 17:22] LABS: RBC,Urine 50-100 #/hpf (0-3); Squamous Epithelial Cell,Urine 20-50 #/hpf (0-5); WBC,Urine TNTC #/hpf (0-3)
[2024-07-07 17:23] VITALS: BP 114/81; PULSE 81; O2SAT 95
[2024-07-07 17:23] LABS: Bacteria,Urine 4+ /lpf; Trichomonas,Urine 2+ /lpf
[2024-07-07 17:25] LABS: HCG Qualitative, Serum Negative (Negative)
[2024-07-07 18:18] VITALS: BP 120/84; PULSE 86; O2SAT 97
[2024-07-07] MEDS: CEFTRIAXONE SODIUM 2 GM in 0.9 % SODIUM CHLORIDE 100 ML IV (18:50)
[2024-07-07] MEDS: DOXYCYCLINE HYCL 100 MG TABLET PO (18:51)
[2024-07-07] MEDS: metroNIDAZOLE 500 MG TABLET PO (18:51)
[2024-07-07] MEDS: PHENAZOPYRIDINE 200MG TABLET 200 MG PO (18:51)
[2024-07-07] MEDS: OXYCODONE 5MG IMMEDIATE RELEASE TABLET 5 MG PO (18:51)
[2024-07-07 19:02] VITALS: BP 111/79; PULSE 84; RESP 18; TEMP 36.8; O2SAT 99
[2024-07-11 02:42] LABS: Neisseria gonorrhoeae, NAA Negative (Negative)
== END 2024-07-07 19:03 | disposition home or self-care (01) ==
PROVIDERS: Emergency Provider Emergency Medicine; PCP Family Medicine
DX: N39.0 Urinary tract infection, site not specified (principal); A59.9 Trichomoniasis, unspecified; R10.32 Left lower quadrant pain; R30.0 Dysuria; R31.9 Hematuria, unspecified; R11.0 Nausea
CPT/HCPCS: 74176; 80053; 81001; 83690; 84703; 85025; 87086; 87491; 87591; 96365; 96374; 96375; 99285; J0696; J2270; J2405

== ENCOUNTER 2024-07-18 12:25 | Emergency (ER) | payer OTHER, SELFPAY ==
[2024-07-18 12:40] VITALS: BP 106/73; PULSE 70; RESP 19; TEMP 36.8; O2SAT 98; BMI 38.6
[2024-07-18 12:54] LABS: UTC Strep Screen (Rapid) Negative (Negative)
[2024-07-18 12:55] LABS: UTC Influenza A Antigen Negative (Negative); UTC Influenza B Antigen Negative (Negative)
--- NOTE | 2024-07-18 13:01 | EXP.UTC ---
Discharge Plan Disposition Patient Disposition: Home, Self-Care Condition: Good Prescriptions Prescriptions: No Action aspirin 81 mg tablet,delayed release (DR/EC) 81 mg PO DAILY Rx Instructions: TAKE 1 TABLET BY MOUTH DAILY FOR HEART HEALTH bisoprolol fumarate 5 mg tablet 5 mg PO DAILY Rx Instructions: TAKE 1 TABLET BY MOUTH ONCE DAILY FOR HYPERTENSION Referrals Follow up/Referrals: Gary Flanagan MD [Primary Care Provider] - See instructions Activity Restrictions/Add. Instructions Additional Instructions/Restrictions: *Monitor Temp, Over the counter Motrin or Tylenol as directed/as needed Tylenol every 4 hours and Motrin every 6 hours (as long as your family doctor has told you that you can take it) for fever or pain. and straight to ER if unable to lower temp less than 101.0 after medication given *Warm salt water gargles may help to soothe the throat *Throat Lozenges? *Warm fluids like tea with honey may help to soothe the throat? *Sleep elevated *Humidifier/Vaporizer Over the counter cough and cold medications may help with symptoms Your throat swab was sent for culture. Those results are typically sent to your primary care. Be sure to follow up in 2-3 days with your family doctor/primary care physician if no improvement so they can review those result and treat if necessary. If you don?t have a primary care doctor, I recommend you get one but in the mean time, you will have to return to a walk in clinic Follow up IMMEDIATELY for new or worsening symptoms or no Noticeable improvement over the next 48-72 hours. 911 for difficulty breathing or swallowing You were tested for today for COVID19 your test result should be back in the next 24 hours, you may check your results on the [facility] Clinical Impressions Clinical Impression: Viral upper respiratory infection Instructions Patient Instructions: DI for Viral Upper Respiratory Infection -- Adult, Sore Throat Print Language Print Language: Lao Discharge ED Provider: Lata Mcdonald [facility] [place] General Stated complaint: sore throat, body aches Mode of Arrival: Ambulatory Source of Information: Patient Limitations: No Limitations Time Seen by Provider: 07/18/24 13:01 Description of Symptoms (Recalled from Triage Doc. by RN): PATIENT C/O HEADACHE, SORE THROAT, AND BODY ACHES X 3 DAYS HEENT Symptoms (Recalled from RN notes): Yes Resp Symptoms (Recalled from RN notes): No Skin Symptoms (Recalled from RN notes): No MS Symptoms (Recalled from RN notes): No Functional Status (Recalled from RN notes): WNL History of Present Illness Provider Complaint: Patient states that she hasnt been feeling well for the last couple days with body aches, chills sore throat Denies fever and feeling achy all over States she was around mother that had a viral illness but not sure what wanted to get tested for flu, strep and COVID Related Data Home Medications ?Medication ?Instructions ?Recorded ?Confirmed aspirin 81 mg tablet,delayed 81 mg PO DAILY 07/18/24 07/18/24 release bisoprolol fumarate 5 mg tablet 5 mg PO DAILY 07/18/24 07/18/24 Allergies Allergy/AdvReac Type Severity Reaction Status Date / Time buprenorphine [From Suboxone] Allergy Intermediate Vomiting Verified 07/05/24 14:18 naloxone [From Suboxone] Allergy Intermediate Vomiting Verified 07/05/24 14:18 ketorolac [From TORADOL] Allergy Mild Verified 07/05/24 14:18 tramadol [TRAMADOL] Allergy Mild Verified 07/05/24 14:18 diphenhydramine Allergy Unknown I-HIVES Verified 07/05/24 14:18 [From BENADRYL] Worker's Comp Is this a Worker's Comp case?: No [facility] Disclaimer: The information contained in this section may have been updated after the patient was seen, as this information can be updated by other users. Medical History Kidney stones Patient left without being seen Postoperative pain Otitis media Abdominal pain Foot callus Cellulitis Patient left without being seen Trichomonal vaginitis Postoperative abdominal pain Dysmenorrhea Menorrhagia Right lower quadrant pain Dysfunctional uterine bleeding Flank pain Palpitations SOB (shortness of breath) Concussion without loss of consciousness Microhematuria Acute right flank pain Degenerative joint disease (DJD) of lumbar spine Patient left without being seen Otitis externa Lumbar disc disease Tachycardia Back pain Dyspnea Chest pain Atypical chest pain Ovarian cyst Trichomonal cystitis Abdominal pain of unknown etiology Bilious vomiting Vomiting Closed fracture of tuft of distal phalanx of finger Pelvic pain UTI (urinary tract infection) Renal colic on left side Endometriosis Surgical History Hx of tonsillectomy History of cholecystectomy History of appendectomy H/O hysterectomy with oophorectomy [place] teeth extracted S/P appendectomy S/P hysterectomy Family History Mother Diabetes Hypertension Grandmother Cancer Father Cancer Hypertension Diabetes Social History Smoking Status: Current every day smoker tobacco type: cigarettes packs per day: 1 alcohol intake: never counseling provided: none substance use type: denies use current occupational status: employed and other Travel in the last 8 weeks: None household members: spouse housing: house current occupational exposures/hazards: No caffeine: Yes ROS Obtained: Yes All systems reviewed & no additional complaints except as documented and Yes Systems reviewed as appropriate & no additional complaints except as documented Constitutional Constitutional: Reports system reviewed and no additional complaints, except as documented, Reports as per HPI, Reports body ache, Reports chills, Denies fever(s) and Reports headache(s) ENT Ears, Nose, Mouth, and Throat: Reports system reviewed and no additional complaints, except as documented, Reports as per HPI, Reports headache(s), Reports nasal congestion, Reports nasal discharge and Reports sore throat Cardiovascular Cardiovascular: Reports system reviewed and no additional complaints, except as documented and Reports as per HPI Respiratory Respiratory: Reports system reviewed and no additional complaints, except as documented and Reports as per HPI Gastrointestinal Gastrointestingal: Reports system reviewed and no additional complaints, except as documented and as per HPI Neurologic Neurologic: Reports headache(s) Physical Exam General General appearance: alert and in no apparent distress ENT ENT exam: Present normal exam, normal oropharynx, mucous membranes moist and TM's normal bilaterally Chest Chest inspection: Present normal inspection and symmetric chest wall rise Respiratory Respiratory exam: Present normal lung sounds bilaterally; Absent respiratory distress or wheezes Cardiovascular Cardiovascular exam: Present regular rate, normal rhythm and normal heart sounds Abdominal Exam Abdominal exam: Present soft and normal bowel sounds; Absent distention or tenderness Neurological Exam Neurological exam: Present alert, oriented X3 and normal gait Medical Decision Making Medical Records Screening: Per USPSTF and CDC recommendations, given the prevalence of disease in our region, it is our hospital?s policy to screen for HIV and viral Hepatitis for all patients aged 18 and over and those with ongoing risk factors. Aram Inquiry Pt receiving controlled substance: No Aram was queried for this patient: No Vital Signs: 07/18/24 12:40 Temperature 98.3 F Temperature Source Oral Pulse Rate [Left Brachial] 70 Respiratory Rate 19 Blood Pressure [Left Arm] 106/73 L Blood Pressure Mean [Left Arm] 84 Blood Pressure Source [Left Arm] Automatic Cuff Blood Pressure Position [Left Arm] Sitting 02 Sat by Pulse Oximetry 98 Oxygen Delivery Method Room Air Lab Data Lab results reviewed: Yes I reviewed the patient's lab results. Lab Results 07/18/24 12:38: Influenza Type A Ag Negative, Influenza Type B Ag Negative, Strep Scn Rapid Clinic Negative Orders (Tests/Meds): ORDERS Category Date Time Status Strep Screen Confirmation Stat Micro 07/18/24 12:38 Received
[2024-07-18 13:04] VITALS: BP 106/73; PULSE 70; RESP 19; TEMP 36.8; O2SAT 98
== END 2024-07-18 13:08 | disposition home or self-care (01) ==
PROVIDERS: Emergency Provider Nurse Practitioner; PCP Family Medicine
DX: J06.9 Acute upper respiratory infection, unspecified (principal)
CPT/HCPCS: 87635; 87804; 87880; 99213; G0381

== ENCOUNTER 2024-08-21 16:03 | Emergency (ER) | payer OTHER, SELFPAY ==
[2024-08-21 16:04] VITALS: BP 116/77; PULSE 84; RESP 18; TEMP 36.8; O2SAT 96; BMI 38.9
--- NOTE | 2024-08-21 16:32 | HMH.EDGENADL ---
Discharge Plan Disposition Patient Disposition: Home, Self-Care Prescriptions Prescriptions: New oxycodone 5 mg tablet 5 mg PO Q6H PRN (Reason: pain) Qty: 8 0RF No Action aspirin 81 mg tablet,delayed release (DR/EC) 81 mg PO DAILY Rx Instructions: TAKE 1 TABLET BY MOUTH DAILY FOR HEART HEALTH bisoprolol fumarate 5 mg tablet 5 mg PO DAILY Rx Instructions: TAKE 1 TABLET BY MOUTH ONCE DAILY FOR HYPERTENSION Referrals Follow up/Referrals: Gary Flanagan MD [Primary Care Provider] - See instructions Activity Restrictions/Add. Instructions Additional Instructions/Restrictions: Call your family doctor to establish care for this visit to the emergency department and schedule follow-up within 48 hours to ensure improvement. If you have any worsening of your condition or any other concerning signs or symptoms, return to the emergency department or your primary care doctor for further evaluation. Clinical Impressions Clinical Impression: Acute pulpitis, Abscess, dental Print Language Print Language: Lithuanian Discharge ED Provider: Ben Biswas General Adult HPI General Chief complaint: PAIN Stated complaint: Toothache Time Seen by Provider: 08/21/24 16:11 Mode of Arrival: Ambulatory Source of Information: Patient Limitations: No Limitations Description of Symptoms (Recalled from ER Triage Doc. by RN): pt presents to the er for dental pain, states she has a dentist appointment wednesday to have all of her teeth pulled, states she has been on amoxicillin since last wednesday for an absess, had a tooth fall out wednesday afternoon and now has a hole causing her pain, rates pain 8/10, constant, sharp, and aching, can't eat due to the pain, states she has been taking ibuprofen and orajel, took ibuprofen last 3 hours ago, can't take dental balls becuase they make her nauseous, also reports facial pain History of Present Illness HPI narrative: Please note that above description of symptoms, in this electronic medical record under categorization of recalled from ER triage doctor by RN are reflective of an initial nursing assessment, however, is not reflective of my full history and physical exam that was personally taken and clarified. Consequentially, this preceding description of symptoms, which may include the patient's categorized chief complaint in the EMR, do not reflect my personal clinical impression, and the ultimate description of history of present illness and patient stated complaints should be deferred to this section of the note. Unless stated otherwise or congruent with this section of the note, additional signs, symptoms, or incongruence should be interpreted as inaccurate with my clinical impression. Related Data Home Medications ?Medication ?Instructions ?Recorded ?Confirmed aspirin 81 mg tablet,delayed 81 mg PO DAILY 07/18/24 08/21/24 release bisoprolol fumarate 5 mg tablet 5 mg PO DAILY 07/18/24 08/21/24 Previous Rx's ?Medication ?Instructions ?Recorded oxycodone 5 mg tablet 5 mg PO Q6H PRN pain #8 tabs 08/21/24 Allergies Allergy/AdvReac Type Severity Reaction Status Date / Time buprenorphine (From Suboxone) Allergy Intermediate Vomiting Verified 07/05/24 14:18 naloxone (From Suboxone) Allergy Intermediate Vomiting Verified 07/05/24 14:18 ketorolac (From TORADOL) Allergy Mild Verified 07/05/24 14:18 tramadol (TRAMADOL) Allergy Mild Verified 07/05/24 14:18 diphenhydramine (From Allergy Unknown I-HIVES Verified 07/05/24 14:18 BENADRYL) [facility] Disclaimer: The information contained in this section may have been updated after the patient was seen, as this information can be updated by other users. Medical History Kidney stones Patient left without being seen Postoperative pain Otitis media Abdominal pain Foot callus Cellulitis Patient left without being seen Trichomonal vaginitis Postoperative abdominal pain Dysmenorrhea Menorrhagia Right lower quadrant pain Dysfunctional uterine bleeding Flank pain Palpitations SOB (shortness of breath) Concussion without loss of consciousness Microhematuria Acute right flank pain Degenerative joint disease (DJD) of lumbar spine Patient left without being seen Otitis externa Lumbar disc disease Tachycardia Back pain Dyspnea Chest pain Atypical chest pain Ovarian cyst Trichomonal cystitis Abdominal pain of unknown etiology Bilious vomiting Vomiting Closed fracture of tuft of distal phalanx of finger Pelvic pain UTI (urinary tract infection) Renal colic on left side Endometriosis Surgical History Hx of tonsillectomy History of cholecystectomy History of appendectomy H/O hysterectomy with oophorectomy [place] teeth extracted S/P appendectomy S/P hysterectomy Family History Mother Diabetes Hypertension Grandmother Cancer Father Cancer Hypertension Diabetes Social History Smoking Status: Current every day smoker tobacco type: cigarettes packs per day: 1 alcohol intake: never counseling provided: none substance use type: denies use current occupational status: employed and other Travel in the last 8 weeks: None household members: spouse housing: house current occupational exposures/hazards: No caffeine: Yes Other Medical History Have you received the Flu Vaccine for this season: No Have you received the Pneumonia Vaccine: No ROS Obtained: Yes All systems reviewed & no additional complaints except as documented Physical Exam General General appearance: alert Head Head exam: atraumatic and normocephalic Eye Eye exam: Present normal appearance, PERRL and EOMI ENT ENT exam: Present other (Numerous dental caries and broken/rotted teeth, no evidence of abscess. No evidence of tonsillitis, exudate, pharyngeal erythema, uvular deviation, palatal swelling, trismus, external neck swelling, submental induration, dental abscess, angioedema, or other abnormal camilo pharyngeal findings) Neck Neck exam: Present normal inspection, full ROM and trachea midline Respiratory Respiratory exam: Absent respiratory distress, wheezes, stridor, accessory muscle use or prolonged expiratory phase Cardiovascular Cardiovascular exam: Present other (Pulses equal symmetric in upper and lower extremities) Abdominal Exam Abdominal exam: Present soft; Absent distention, tenderness or pulsatile mass Extremities Exam Extremities exam: Absent edema Neurological Exam Neurological exam: Present alert, oriented X3 and CN II-XII intact; Absent motor sensory deficit Skin Skin exam: Present warm and dry; Absent diaphoresis or erythema Medical Decision Making Medical Records Medical records reviewed: Yes I reviewed the patient's medical records. Screening: Per USPSTF and CDC recommendations, given the prevalence of disease in our region, it is our hospital?s policy to screen for HIV and viral Hepatitis for all patients aged 18 and over and those with ongoing risk factors. Aram Inquiry Pt receiving controlled substance: No Aram was queried for this patient: No Vital Signs: 08/21/24 16:04 Temperature 98.2 F Temperature Source Oral Pulse Rate [Left Radial] 84 Respiratory Rate 18 Blood Pressure [Right Arm] 116/77 Blood Pressure Mean [Right Arm] 90 Blood Pressure Source [Right Arm] Automatic Cuff Blood Pressure Position [Right Arm] Sitting 02 Sat by Pulse Oximetry 96 Oxygen Delivery Method Room Air Medical Decision Narrative: 29-year-old female presenting with tooth pain. Patient states that she has had chronic dental caries, has full extraction scheduled for 3 days from now. Is currently on Augmentin. Taking Tylenol and Motrin, but had a tooth break is currently on Augmentin. Taking Tylenol and Motrin, but had a tooth break yesterday and has had significant pain since that time. No range of motion of neck difficulties, voice changes, fevers, chills, facial or jaw swelling. Called her dentist today who told her to go to the emergency department for further evaluation. Patient presents for this. On arrival, patient very well-appearing, but in moderate distress secondary to pain, holding the right side of her face. Speaking in full sentences. No lymphadenopathy. No meningismus. No evidence of tonsillitis, exudate, pharyngeal erythema, uvular deviation, palatal swelling, trismus, external neck swelling, submental induration, dental abscess, angioedema, or other abnormal camilo pharyngeal findings. She does have numerous dental caries. Differential includes pulpitis, gingivitis, dental abscess, among others. Because patient already on Augmentin, no further antibiotics were deemed necessary. No abscess amenable to drainage. Patient to be given short course of oxycodone for outpatient management until she follows up with her dentist on Wednesday, 08/23. Labs considered, not deemed necessary given clinically well-appearing patient without systemic signs or symptoms. No red flag signs or symptoms of the head or neck. I do have a concern that there may be pain seeking behavior, however patient does appear to be in moderate pain and has plan for outpatient procedure. Because of this, I told her that I will prescribe oxycodone. She does have a recent visit to the emergency department for pain medications as well on 07/07/2024 where she was prescribed opiate. Will monitor future visits for pain medicine seeking disorder. Because patient at baseline without signs or symptoms of clinical decompensation, deemed appropriate for discharge. Results were relayed to patient who voiced understanding and were agreeable to outpatient management and follow up. I discussed my clinical impression with patient and answered all questions. At this time, the evidence for any other entities in the differential is insufficient to warrant any further testing or ED observation. This was explained as well. Advisory was given that persistent or worsening symptoms require further evaluation. I confirmed the understanding of this discussion. 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 Electronic dye range operator cloth of the spoken language may permit errors. Although I have reviewed the note, some errors may still exist. Critical Care Critical Care Time Critical Care Time: No
[2024-08-21 16:49] VITALS: BP 118/70; PULSE 72; RESP 18; TEMP 36.8; O2SAT 98
== END 2024-08-21 16:50 | disposition home or self-care (01) ==
PROVIDERS: Emergency Provider Emergency Medicine; PCP Family Medicine
DX: K04.7 Periapical abscess without sinus (principal); K04.01 Reversible pulpitis; K08.89 Other specified disorders of teeth and supporting structures
CPT/HCPCS: 99283

== ENCOUNTER 2024-08-26 16:35 | Emergency (ER) | payer OTHER, SELFPAY ==
[2024-08-26 16:37] VITALS: BP 146/85; PULSE 80; RESP 18; TEMP 36.7; O2SAT 99; BMI 38.9
[2024-08-26 16:52] VITALS: BP 145/64; PULSE 84; RESP 18; TEMP 36.7; O2SAT 99
--- NOTE | 2024-08-26 16:53 | ED_ITS ---
Discharge Plan Disposition Patient Disposition: Home, Self-Care Condition: Good Prescriptions Prescriptions: New oxycodone 5 mg tablet 5 mg PO Q8H PRN (Reason: pain) Qty: 6 0RF No Action aspirin 81 mg tablet,delayed release (DR/EC) 81 mg PO DAILY Rx Instructions: TAKE 1 TABLET BY MOUTH DAILY FOR HEART HEALTH bisoprolol fumarate 5 mg tablet 5 mg PO DAILY Rx Instructions: TAKE 1 TABLET BY MOUTH ONCE DAILY FOR HYPERTENSION oxycodone 5 mg tablet 5 mg PO Q6H PRN (Reason: pain) Qty: 8 0RF Referrals Follow up/Referrals: Gary Flanagan MD [Primary Care Provider] - See instructions Activity Restrictions/Add. Instructions Additional Instructions/Restrictions: Follow-up with your dental surgeon on Wednesday as discussed to have your teeth extracted. Continue to take Tylenol and ibuprofen every 6 hours for pain. Avoid oxycodone use if at all possible, but if having severe pain, can take 5 mg (1 tablet) every 8 hours as needed. If you develop any new or worsening symptoms, or if you become concerned for your health for any reason, return to the emergency department for evaluation Clinical Impressions Clinical Impression: Pain, dental Instructions Patient Instructions: DI for Dental Pain Print Language Print Language: Sinhala Discharge ED Provider: Qamar Cadena Adult HPI General Chief complaint: Dental/Oral Stated complaint: abscess R side of mouth Time Seen by Provider: 08/26/24 16:40 Mode of Arrival: Ambulatory Source of Information: Patient Limitations: No Limitations Description of Symptoms (Recalled from ER Triage Doc. by RN): r tooth pain History of Present Illness HPI narrative: Maria Del Carmen Saravia is a 29-year-old female with history of hypertension who presents to the emergency department for complaints of dental pain. Patient states that she was recently diagnosed with a dental abscess and finished a course of Augmentin. She notes that she was supposed to have all of her teeth extracted on Wednesday (08/23/2024) by dental surgeon in [place], however they called that morning and told her that the surgeon has COVID that he will not be available until Wednesday at 8 AM to perform her operation. She notes that she was seen in the ER a few days prior for the dental pain and was prescribed 3 days of oxycodone. She states that she ran out of her oxycodone on the and has been taking Tylenol and ibuprofen ever since but this has not controlled the pain. She denies any fevers but reports continued pain in all of her teeth. Related Data Home Medications ?Medication ?Instructions ?Recorded ?Confirmed aspirin 81 mg tablet,delayed 81 mg PO DAILY 07/18/24 08/21/24 release bisoprolol fumarate 5 mg tablet 5 mg PO DAILY 07/18/24 08/21/24 Previous Rx's ?Medication ?Instructions ?Recorded oxycodone 5 mg tablet 5 mg PO Q6H PRN pain #8 tabs 08/21/24 oxycodone 5 mg tablet 5 mg PO Q8H PRN pain #6 tabs 08/26/24 Allergies Allergy/AdvReac Type Severity Reaction Status Date / Time buprenorphine (From Suboxone) Allergy Intermediate Vomiting Verified 07/05/24 14:18 naloxone (From Suboxone) Allergy Intermediate Vomiting Verified 07/05/24 14:18 ketorolac (From TORADOL) Allergy Mild Verified 07/05/24 14:18 tramadol (TRAMADOL) Allergy Mild Verified 07/05/24 14:18 diphenhydramine (From Allergy Unknown I-HIVES Verified 07/05/24 14:18 BENADRYL) [facility] Disclaimer: The information contained in this section may have been updated after the patient was seen, as this information can be updated by other users. Medical History Kidney stones Patient left without being seen Postoperative pain Otitis media Abdominal pain Foot callus Cellulitis Patient left without being seen Trichomonal vaginitis Postoperative abdominal pain Dysmenorrhea Menorrhagia Right lower quadrant pain Dysfunctional uterine bleeding Flank pain Palpitations SOB (shortness of breath) Concussion without loss of consciousness Microhematuria Acute right flank pain Degenerative joint disease (DJD) of lumbar spine Patient left without being seen Otitis externa Lumbar disc disease Tachycardia Back pain Dyspnea Chest pain Atypical chest pain Ovarian cyst Trichomonal cystitis Abdominal pain of unknown etiology Bilious vomiting Vomiting Closed fracture of tuft of distal phalanx of finger Pelvic pain UTI (urinary tract infection) Renal colic on left side Endometriosis Surgical History Hx of tonsillectomy History of cholecystectomy History of appendectomy H/O hysterectomy with oophorectomy [place] teeth extracted S/P appendectomy S/P hysterectomy Family History Mother Diabetes Hypertension Grandmother Cancer Father Cancer Hypertension Diabetes Social History Smoking Status: Never smoker alcohol intake: never counseling provided: none substance use type: denies use current occupational status: employed and other Travel in the last 8 weeks: None household members: spouse housing: house current occupational exposures/hazards: No caffeine: Yes Have you lived/traveled outside [place] in past 30 days?: No Contact w/someone who lives/traveled outside [place] past 30 days?: No Exposure to someone with infectious disease in past 14 days?: No Do you have a fever (greater than 100.4 F or 38 C)?: No Have you tested positive for COVID-19: No Exposed to someone with COVID-19 in past 14 days?: No Do you have a sore throat?: No Do you have a cough?: No Do you have any weakness?: No Do you have any diarrhea?: No Are you experiencing any unusual bleeding?: No Do you have any muscle aches/pain?: No Do you have any abdominal pain?: No Are you experiencing loss of taste or smell?: No Other Medical History Have you received the Flu Vaccine for this season: No Have you received the Pneumonia Vaccine: No ROS Obtained: Yes Systems reviewed as appropriate & no additional complaints except as documented Physical Exam General General appearance: alert and in no apparent distress Head Head exam: atraumatic Eye Eye exam: Present normal appearance ENT ENT exam: Present normal external ear exam and other (Extremely poor dentition throughout. Multiple dental caries throughout remaining teeth. No facial swelling.) Neck Neck exam: Present full ROM Chest Chest inspection: Present symmetric chest wall rise Respiratory Respiratory exam: Present normal lung sounds bilaterally; Absent respiratory distress Cardiovascular Cardiovascular exam: Present regular rate and normal rhythm Abdominal Exam Abdominal exam: Present soft Extremities Exam Extremities exam: Present normal inspection Neurological Exam Neurological exam: Present alert and oriented X3 Psychiatric Psychiatric exam: Present normal affect Skin Skin exam: Present warm and dry Medical Decision Making Medical Records Screening: Per USPSTF and CDC recommendations, given the prevalence of disease in our region, it is our hospital?s policy to screen for HIV and viral Hepatitis for all patients aged 18 and over and those with ongoing risk factors. Aram Inquiry Pt receiving controlled substance: Yes Aram was queried for this patient: Yes Risks and benefits of using a controlled substance: were discussed with pt by me Vital Signs: 08/26/24 16:37 08/26/24 16:52 Temperature 98.1 F 98.1 F Temperature Source Oral Oral Pulse Rate 84 Pulse Rate [Right] 80 Respiratory Rate 18 18 Blood Pressure 145/64 H Blood Pressure [Right Arm] 146/85 H Blood Pressure Mean [Right Arm] 105 Blood Pressure Source Automatic Cuff 02 Sat by Pulse Oximetry 99 Oxygen Delivery Method Room Air Orders (Tests/Meds): ED MEDICATIONS Discontinued Medications Generic Name Dose Route Start Last Admin Trade Name Freq PRN Reason Stop Dose Admin Oxycodone HCl 5 mg 08/26/24 16:47 08/26/24 16:57 Oxycodone 5mg Immediate Release Tablet PO 08/26/24 16:48 5 mg ONCE ONE Administration Medical Decision Narrative: Maria Del Carmen Saravia is a 29-year-old female with a past medical history significant for hypertension who presents to the emergency department for complaints of dental pain. Patient states that she was diagnosed recently with a dental abscess and completed a course of Augmentin. She notes that she has extremely poor dentition and was scheduled to have all of her teeth extracted on Wednesday of this week by a dental surgeon in [place], however they called that morning and stated that the surgeon has COVID and will not be available until Wednesday to perform the surgery at 8 AM. She ran out of her previously prescribed oxycodone on Wednesday and has been taking Tylenol and ibuprofen ever since, however her pain has been persistent and severe. She denies any fevers and states that she did complete a course of Augmentin on that the nature of her pain has not changed recently. On arrival, patient is mildly hypertensive but hemodynamically stable and afebrile. Physical exam reveals an overall well- appearing female in no acute distress. She is breathing comfortably on room air. She has extremely poor dentition throughout with multiple dental caries. No facial swelling. Differential diagnosis includes, but is not limited to: Dental caries, dental abscess, gingivitis, among others Lab work as well as CT of the face to evaluate for abscess was considered, however given patient is to have any facial swelling and was recently treated for dental abscess, is felt that this is not indicated at this time. Patient was given 5 mg of oxycodone here in the emergency department. Discussed with the patient the importance of having her teeth removed as continuing to get opiate pain medications will not solve the issue. She demonstrated understanding and notes that she will be going in 8 AM on Wednesday to have all of her teeth removed. Will send a short course of oxycodone to get her through the weekend until her appointment on Wednesday. Patient noted to have been in the emergency department on the for similar complaints and had a total of 6 oxycodone prescribed at that time. She also had a course of oxycodone prescribed at the end of June. There is some concern for opiate abuse and will continue to monitor for future visits for these reasons. All questions were answered. She was then discharged from the emergency department in stable condition Critical Care Critical Care Time Critical Care Time: No
[2024-08-26] MEDS: OXYCODONE 5MG IMMEDIATE RELEASE TABLET 5 MG PO (16:57)
== END 2024-08-26 17:05 | disposition home or self-care (01) ==
PROVIDERS: Emergency Provider Student in an Organized Health Care Education/Training Program; PCP Family Medicine
DX: K08.89 Other specified disorders of teeth and supporting structures (principal)
CPT/HCPCS: 99283

== ENCOUNTER 2024-08-28 16:53 | Emergency (ER) | payer OTHER, SELFPAY ==
[2024-08-28 16:53] VITALS: BP 117/78; PULSE 78; RESP 16; TEMP 36.9; O2SAT 98; BMI 38.9
--- NOTE | 2024-08-28 18:31 | ED_ITS ---
<Statement entered by Tommie Masters MD - 08/28/24 22:29> I was consulted by the JOVANNY, and we discussed the complexity of the problems being addressed. I approved the treatment and management plan for this patient's care in the emergency department, thus performing a substantive portion of the medical decision making. I had personal discussion with patient at bedside as to her receiving care in the emergency department unfortunately she does not wish to take any noncontrolled pain medication with antiemetics including lidocaine or nerve block. She has no periapical abscess on my exam and is appropriate for outpatient management at this time. Tommie Masters MD Discharge Plan Disposition Patient Disposition: Left Against Medical Advice Condition: Good Prescriptions Prescriptions: No Action aspirin 81 mg tablet,delayed release (DR/EC) 81 mg PO DAILY Rx Instructions: TAKE 1 TABLET BY MOUTH DAILY FOR HEART HEALTH bisoprolol fumarate 5 mg tablet 5 mg PO DAILY Rx Instructions: TAKE 1 TABLET BY MOUTH ONCE DAILY FOR HYPERTENSION oxycodone 5 mg tablet 5 mg PO Q8H PRN (Reason: pain) Qty: 6 0RF oxycodone 5 mg tablet 5 mg PO Q6H PRN (Reason: pain) Qty: 8 0RF Referrals Follow up/Referrals: Gary Flanagan MD [Primary Care Provider] - See instructions Clinical Impressions Clinical Impression: Pain, dental Print Language Print Language: Pakistani Discharge ED Provider: Tommie Masters General Adult HPI General Chief complaint: Dental/Oral Stated complaint: right side jaw pain, vomiting Time Seen by Provider: 08/28/24 18:31 History of Present Illness HPI narrative: Patient presents for evaluation of dentalgia. Patient has known significant dental caries. In the last month she has been seen 2 times previously for dental pain. Patient reportedly has arranged dental evaluation and full mouth extraction however that has yet to occur. She is given multiple reasons as to why the most recent being that her provider was diagnosed with COVID and even though that that was rescheduled and the patient was due to have it done today her provider was still unavailable. Patient was provided an antibiotic at the start of this on 08/21/2024 but also received a short course of opiate therapy. She has since received another short course of opiates after the initial COVID diagnosis of her dental provider. She returns today stating that she was unable to have the full mouth extraction today. She reports no fever chills hemoptysis hematochezia melena inability to tolerate oral intake etc. Related Data Home Medications ?Medication ?Instructions ?Recorded ?Confirmed aspirin 81 mg tablet,delayed 81 mg PO DAILY 07/18/24 08/21/24 release bisoprolol fumarate 5 mg tablet 5 mg PO DAILY 07/18/24 08/21/24 Previous Rx's ?Medication ?Instructions ?Recorded oxycodone 5 mg tablet 5 mg PO Q6H PRN pain #8 tabs 08/21/24 oxycodone 5 mg tablet 5 mg PO Q8H PRN pain #6 tabs 08/26/24 Allergies Allergy/AdvReac Type Severity Reaction Status Date / Time buprenorphine (From Suboxone) Allergy Intermediate Vomiting Verified 07/05/24 14:18 naloxone (From Suboxone) Allergy Intermediate Vomiting Verified 07/05/24 14:18 ketorolac (From TORADOL) Allergy Mild Verified 07/05/24 14:18 tramadol (TRAMADOL) Allergy Mild Verified 07/05/24 14:18 diphenhydramine (From Allergy Unknown I-HIVES Verified 07/05/24 14:18 BENADRYL) [facility] Disclaimer: The information contained in this section may have been updated after the patient was seen, as this information can be updated by other users. Medical History Kidney stones Patient left without being seen Postoperative pain Otitis media Abdominal pain Foot callus Cellulitis Patient left without being seen Trichomonal vaginitis Postoperative abdominal pain Dysmenorrhea Menorrhagia Right lower quadrant pain Dysfunctional uterine bleeding Flank pain Palpitations SOB (shortness of breath) Concussion without loss of consciousness Microhematuria Acute right flank pain Degenerative joint disease (DJD) of lumbar spine Patient left without being seen Otitis externa Lumbar disc disease Tachycardia Back pain Dyspnea Chest pain Atypical chest pain Ovarian cyst Trichomonal cystitis Abdominal pain of unknown etiology Bilious vomiting Vomiting Closed fracture of tuft of distal phalanx of finger Pelvic pain UTI (urinary tract infection) Renal colic on left side Endometriosis Surgical History Hx of tonsillectomy History of cholecystectomy History of appendectomy H/O hysterectomy with oophorectomy [place] teeth extracted S/P appendectomy S/P hysterectomy Family History Mother Diabetes Hypertension Grandmother Cancer Father Cancer Hypertension Diabetes Social History Smoking Status: Current every day smoker tobacco type: cigarettes packs per day: 1 alcohol intake: never counseling provided: none substance use type: denies use current occupational status: employed and other Travel in the last 8 weeks: None household members: spouse housing: house current occupational exposures/hazards: No caffeine: Yes Have you lived/traveled outside US in past 30 days?: No Contact w/someone who lives/traveled outside US past 30 days?: No Exposure to someone with infectious disease in past 14 days?: No Do you have a fever (greater than 100.4 F or 38 C)?: No Have you tested positive for COVID-19: No Exposed to someone with COVID-19 in past 14 days?: No Do you have a sore throat?: No Do you have a cough?: No Do you have any weakness?: No Do you have any diarrhea?: No Are you experiencing any unusual bleeding?: No Do you have any muscle aches/pain?: No Do you have any abdominal pain?: No Are you experiencing loss of taste or smell?: No Other Medical History Have you received the Flu Vaccine for this season: No Have you received the Pneumonia Vaccine: No ROS Obtained: Yes Systems reviewed as appropriate & no additional complaints except as documented Physical Exam General General appearance: alert and in no apparent distress Respiratory Respiratory exam: Present normal lung sounds bilaterally Cardiovascular Cardiovascular exam: Present regular rate Neurological Exam Neurological exam: Present alert and oriented X3 Medical Decision Making Medical Records Medical records reviewed: Yes I reviewed the patient's medical records. Screening: Per USPSTF and CDC recommendations, given the prevalence of disease in our region, it is our hospital?s policy to screen for HIV and viral Hepatitis for all patients aged 18 and over and those with ongoing risk factors. Aram Inquiry Pt receiving controlled substance: No Vital Signs: 08/28/24 16:53 08/28/24 18:34 08/28/24 19:01 Temperature 98.4 F 97.9 F 0 F L Temperature Source Oral Oral Pulse Rate 0 L Pulse Rate [Left Radial] 78 Pulse Rate [Left] 82 Respiratory Rate 16 16 0 L Blood Pressure 0/0 L Blood Pressure [Right Arm] 117/78 117/78 Blood Pressure Mean [Right Arm] 91 91 Blood Pressure Source [Right Arm] Automatic Cuff Blood Pressure Position [Right Arm] Sitting 02 Sat by Pulse Oximetry 98 97 Oxygen Delivery Method Room Air Room Air Lab Data Lab results reviewed: Yes I reviewed the patient's lab results. Medical Decision Narrative: In summary patient is a 29-year-old female who presents to the emergency department for evaluation of dentalgia. Patient is hemodynamically stable upon arrival, afebrile. Physical exam is remarkable for severe dental caries with several missing teeth but also significant for no evidence of erythema fluctuance swelling facial cellulitis tongue deviation. Patient's affected area is in the upper dental line. There is no visible evidence of abscess currently. Differential diagnosis is dentalgia versus seeking behavior. I had interactive discussion regarding her management and I offered her dental balls and or dental block however patient states that she does not want a shot and has an allergy to dental balls and requests opiates to get her through for her abscess . I had interactive discussion with her stating that I do not believe that she had an abscess at all at this point and that her only recourse would be a full mouth extraction as opiates do nothing to treat her and her discomfort. Patient reiterated that she did have an abscess and that other doctors who gave her pain medicine and I told her that she would not be getting opiates today and the offer of a dental block would give her more than 12 hours of relief. Patient at that point decided to leave AGAINST MEDICAL ADVICE Critical Care Critical Care Time Critical Care Time: No
[2024-08-28 18:34] VITALS: BP 117/78; PULSE 82; RESP 16; TEMP 36.6; O2SAT 97; BMI 38.9
[2024-08-28 19:01] VITALS: BP 0/0; PULSE 0; RESP 0; TEMP -17.7; TEMP 0; O2SAT 0
== END 2024-08-28 19:03 | disposition left against medical advice (07) ==
PROVIDERS: Emergency Provider Emergency Medicine; PCP Family Medicine
DX: K08.89 Other specified disorders of teeth and supporting structures (principal); R11.10 Vomiting, unspecified
CPT/HCPCS: 99282

== ENCOUNTER 2024-09-15 01:28 | Emergency (ER) | payer OTHER, SELFPAY ==
[2024-09-15 01:30] VITALS: BP 106/78; PULSE 72; RESP 20; TEMP 37.1; O2SAT 99; BMI 36.6
--- NOTE | 2024-09-15 01:39 | ED_ITS ---
Discharge Plan Disposition Patient Disposition: Home, Self-Care Prescriptions Prescriptions: New sulfamethoxazole-trimethoprim 800-160 mg tablet 1 tab PO BID 7 Days Qty: 14 0RF ondansetron HCl 4 mg tablet 4 mg PO Q8H PRN (Reason: nausea and vomiting) 5 Days Qty: 30 0RF No Action aspirin 81 mg tablet,delayed release (DR/EC) 81 mg PO DAILY Rx Instructions: TAKE 1 TABLET BY MOUTH DAILY FOR HEART HEALTH bisoprolol fumarate 5 mg tablet 5 mg PO DAILY Rx Instructions: TAKE 1 TABLET BY MOUTH ONCE DAILY FOR HYPERTENSION oxycodone 5 mg tablet 5 mg PO Q8H PRN (Reason: pain) Qty: 6 0RF oxycodone 5 mg tablet 5 mg PO Q6H PRN (Reason: pain) Qty: 8 0RF Referrals Follow up/Referrals: Gary Flanagan MD [Primary Care Provider] - See instructions Activity Restrictions/Add. Instructions Additional Instructions/Restrictions: Please take Tylenol and ibuprofen as needed for pain. Take Zofran as needed for nausea and vomiting. Please take Bactrim for treatment of kidney infection. Please follow-up with your primary care provider. Please return to the emergency department if you develop any new or worsening symptoms or become concerned for your health. Clinical Impressions Clinical Impression: Pyelonephritis Print Language Print Language: Hungarian Discharge ED Provider: Camacho Samano Adult HPI General Chief complaint: Abdominal Pain Stated complaint: Abdominal pain,back pain,bloody urine, Time Seen by Provider: 09/15/24 01:36 History of Present Illness HPI narrative: 29-year-old female with history of frequent kidney stone presents with right flank pain. She reports he feels like he is having kidney stone. She reports that she has also had kidney infections in the past. She reports symptoms started earlier today, she has associated nausea vomiting. Pain is sharp and stabbing. She took Tylenol approximately 8 hours ago without improvement. Denies fever or chills.. Related Data Home Medications ?Medication ?Instructions ?Recorded ?Confirmed aspirin 81 mg tablet,delayed 81 mg PO DAILY 07/18/24 08/21/24 release bisoprolol fumarate 5 mg tablet 5 mg PO DAILY 07/18/24 08/21/24 Previous Rx's ?Medication ?Instructions ?Recorded oxycodone 5 mg tablet 5 mg PO Q6H PRN pain #8 tabs 08/21/24 oxycodone 5 mg tablet 5 mg PO Q8H PRN pain #6 tabs 08/26/24 ondansetron HCl 4 mg tablet 4 mg PO Q8H PRN nausea and 09/15/24 vomiting 5 days #30 tabs sulfamethoxazole 800 1 tab PO BID 7 days #14 tabs 09/15/24 mg-trimethoprim 160 mg tablet Allergies Allergy/AdvReac Type Severity Reaction Status Date / Time buprenorphine (From Suboxone) Allergy Intermediate Vomiting Verified 07/05/24 14:18 naloxone (From Suboxone) Allergy Intermediate Vomiting Verified 07/05/24 14:18 ketorolac (From TORADOL) Allergy Mild Verified 07/05/24 14:18 tramadol (TRAMADOL) Allergy Mild Verified 07/05/24 14:18 diphenhydramine (From Allergy Unknown I-HIVES Verified 07/05/24 14:18 BENADRYL) [facility] Disclaimer: The information contained in this section may have been updated after the patient was seen, as this information can be updated by other users. Medical History Kidney stones Patient left without being seen Postoperative pain Otitis media Abdominal pain Foot callus Cellulitis Patient left without being seen Trichomonal vaginitis Postoperative abdominal pain Dysmenorrhea Menorrhagia Right lower quadrant pain Dysfunctional uterine bleeding Flank pain Palpitations SOB (shortness of breath) Concussion without loss of consciousness Microhematuria Acute right flank pain Degenerative joint disease (DJD) of lumbar spine Patient left without being seen Otitis externa Lumbar disc disease Tachycardia Back pain Dyspnea Chest pain Atypical chest pain Ovarian cyst Trichomonal cystitis Abdominal pain of unknown etiology Bilious vomiting Vomiting Closed fracture of tuft of distal phalanx of finger Pelvic pain UTI (urinary tract infection) Renal colic on left side Endometriosis Surgical History Hx of tonsillectomy History of cholecystectomy History of appendectomy H/O hysterectomy with oophorectomy [place] teeth extracted S/P appendectomy S/P hysterectomy Family History Mother Diabetes Hypertension Grandmother Cancer Father Cancer Hypertension Diabetes Social History Smoking Status: Current every day smoker tobacco type: cigarettes packs per day: 1 alcohol intake: never counseling provided: none substance use type: denies use current occupational status: employed and other Travel in the last 8 weeks: None household members: spouse housing: house current occupational exposures/hazards: No caffeine: Yes Have you lived/traveled outside US in past 30 days?: No Contact w/someone who lives/traveled outside US past 30 days?: No Exposure to someone with infectious disease in past 14 days?: No Do you have a fever (greater than 100.4 F or 38 C)?: No Have you tested positive for COVID-19: No Exposed to someone with COVID-19 in past 14 days?: No Do you have a sore throat?: No Do you have a cough?: No Do you have any weakness?: No Do you have any diarrhea?: No Are you experiencing any unusual bleeding?: No Do you have any muscle aches/pain?: No Do you have any abdominal pain?: No Are you experiencing loss of taste or smell?: No Other Medical History Have you received the Flu Vaccine for this season: No Have you received the Pneumonia Vaccine: No ROS Obtained: Yes All systems reviewed & no additional complaints except as documented Physical Exam General General appearance: alert and in no apparent distress Head Head exam: atraumatic and normocephalic Eye Eye exam: Present normal appearance, PERRL and EOMI ENT ENT exam: Present normal oropharynx and normal external ear exam Neck Neck exam: Present normal inspection and full ROM Chest Chest inspection: Present normal inspection and symmetric chest wall rise; Absent tenderness Respiratory Respiratory exam: Present normal lung sounds bilaterally; Absent respiratory distress Cardiovascular Cardiovascular exam: Present regular rate and normal rhythm Abdominal Exam Abdominal exam: Present soft; Absent distention, tenderness or guarding Extremities Exam Extremities exam: Present normal inspection; Absent edema or joint swelling Back Exam Back exam: Present normal inspection, tenderness and CVA tenderness (R) Neurological Exam Neurological exam: Present alert and oriented X3; Absent motor sensory deficit Psychiatric Psychiatric exam: Present normal affect and normal mood Skin Skin exam: Present warm, dry and normal color Lymphatic Lymphatic Findings: no adenopathy Medical Decision Making Medical Records Medical records reviewed: Yes I reviewed the patient's medical records. Screening: Per USPSTF and CDC recommendations, given the prevalence of disease in our region, it is our hospital?s policy to screen for HIV and viral Hepatitis for all patients aged 18 and over and those with ongoing risk factors. Aram Inquiry Pt receiving controlled substance: No Aram was queried for this patient: No Vital Signs: 09/15/24 01:30 09/15/24 03:47 Temperature 98.8 F 98.8 F Temperature Source Oral Oral Pulse Rate 56 L Pulse Rate [Left Radial] 72 Respiratory Rate 20 18 Blood Pressure 104/60 L Blood Pressure [Right Arm] 106/78 L Blood Pressure Mean [Right Arm] 87 Blood Pressure Source Automatic Cuff Blood Pressure Source [Right Arm] Automatic Cuff Blood Pressure Position Sitting Blood Pressure Position [Right Arm] Sitting 02 Sat by Pulse Oximetry 99 Oxygen Delivery Method Room Air Room Air Lab Data Lab results reviewed: Yes I reviewed the patient's lab results. Lab Results 09/15/24 01:43: Urine Color Yellow, Urine Appearance Sl cloudy, Urine pH 6.0, Ur Specific [place] >= 1.030, Urine Protein Negative, Urine Glucose (UA) Negative, Urine Ketones Negative, Urine Blood 1+ A, Urine Nitrate Negative, Urine Bilirubin 1+ A, Urine Urobilinogen 0.2, Ur Leukocyte Esterase 2+ A, Urine RBC 3- 5, Urine WBC 10-20, Ur Squamous Epith Cells 3-5, Urine Bacteria 1+, Urine Mucus Trace 09/15/24 01:55: WBC 7.1, RBC 4.15 L, Hgb 12.9, Hct 39.2, MCV 94.5, MCH 31.1, MCHC 32.9, RDW 12.6, Plt Count 290, MPV 11.1 H, Neut % (Auto) 39.3, Lymph % (Auto) 50.5 H, Kaufman % (Auto) 7.2, Eos % (Auto) 2.3, Baso % (Auto) 0.6, Neut # (Auto) 2.8, Lymph # (Auto) 3.6, [place] # (Auto) 0.5, Eos # (Auto) 0.2, Baso # (Auto) 0.0, Total Counted 100, Neutrophils % (Manual) 42, Lymphocytes % (Manual) 53 H, Monocytes % (Manual) 3, Eosinophils % (Manual) 2, Platelet Estimate Normal, RBC Morphology Normal, Sodium 140, Potassium 4.1, Chloride 107, Carbon Dioxide 24, Anion Gap 13.1, BUN 10, Creatinine 0.70, Estimated GFR 99, Est GFR ( Amer) 120, Glucose 110 H, Calcium 9.2, Total Bilirubin 0.4, AST 29, ALT 24, Alkaline Phosphatase 52, Total Protein 6.8, Albumin 4.2, Globulin 2.6, Albumin/Globulin Ratio 1.6, Serum HCG, Qual Negative 09/15/24 01:55 09/15/24 01:55 Orders (Tests/Meds): ED MEDICATIONS Discontinued Medications Generic Name Dose Route Start Last Admin Trade Name Freq PRN Reason Stop Dose Admin Acetaminophen 1,000 mg 09/15/24 01:43 09/15/24 02:03 Acetaminophen 500mg Tab PO 09/15/24 01:44 1,000 mg ONCE ONE Administration Ceftriaxone Sodium 1 gm/ 50 mls @ 100 mls/hr 09/15/24 02:01 09/15/24 02:37 Sodium Chloride IV 09/15/24 02:30 100 mls/hr ONCE ONE Administration Ibuprofen 600 mg 09/15/24 03:11 09/15/24 03:17 Ibuprofen 600 Mg Tablet PO 09/15/24 03:12 600 mg ONCE ONE Administration Iopamidol 75 ml 09/15/24 03:01 09/15/24 03:02 Iopamidol-370 (76%);100ml Bottle IV 09/15/24 03:02 75 ml ONCE ONE Administration Morphine Sulfate 4 mg 09/15/24 01:43 09/15/24 02:03 Morphine 4mg/Ml Syringe IV 09/15/24 01:44 4 mg ONCE ONE Administration Morphine Sulfate 4 mg 09/15/24 03:11 09/15/24 03:17 Morphine 4mg/Ml Syringe IV 09/15/24 03:12 4 mg ONCE ONE Administration Sodium Chloride 10 ml 09/15/24 03:01 09/15/24 03:02 Sodium Chloride 0.9% 10ml Syr (Rad Only) IV 10/15/24 03:00 10 ml NEEDED PRN Administration Maintain IV Site ORDERS Category Date Time Status CT abdomen pelvis w con Stat Cat Scan 09/15/24 01:43 Completed CBC w/Auto Diff [Complete Blood Count Auto Diff] Stat Lab 09/15/24 01:55 Completed CMP [Comprehensive Metabolic Panel] Stat Lab 09/15/24 01:55 Completed HCG Qualitative, Serum Stat Lab 09/15/24 01:55 Completed UA [Urinalysis and Microscopic] Stat Lab 09/15/24 01:43 Completed Blood Culture Stat Micro 09/15/24 02:32 Received Urine Culture Stat Micro 09/15/24 01:43 Received Medical Decision Narrative: 29-year-old female with history of frequent kidney stones and kidney infections presents with severe right flank pain starting earlier today.. History was obtained via interactive discussion with patient, chart review. On arrival, patient is [afebrile, hemodynamically stable, satting appropriately, alert, oriented x4, GCS 15], moving all extremities spontaneously. Full physical exam performed and significant for right CVA tenderness Differential includes but is not limited to pyelonephritis, kidney stone, cholecystitis.. Patient was given morphine Tylenol Toradol Zofran for symptomatic management and correction of underlying abnormalities. Workup initiated including CBC CMP UA blood cultures urine culture CT abdomen and pelvis with IV contrast. On re-evaluation, patient [remains afebrile, HD stable.] Laboratory workup independently interpreted by me and significant for urine consistent with pyelonephritis.. Imaging independently interpreted by me and significant for no evidence of acute obstructing kidney stone. See radiology read for full review of final results. Given patient history, exam and workup, patient's presentation most likely represents acute pyelonephritis. Patient was given IV ceftriaxone and discharged with prescription for Bactrim and Zofran. Return precautions given. Procedures Risk/Benefits of Procedure(s) Were Explained: Yes Critical Care Critical Care Time Critical Care Time: No
--- NOTE | 2024-09-15 01:43 | CT_ITS ---
PROCEDURE INFORMATION: Exam: CT Abdomen And Pelvis With Contrast Exam date and time: 09/15/2024 2:55 AM Age: 29 years old Clinical indication: Abdominal pain; Additional info: R flank pain HX stones TECHNIQUE: Imaging protocol: Computed tomography of the abdomen and pelvis with contrast. Radiation optimization: All CT scans at this facility use at least one of these dose optimization techniques: automated exposure control; mA and/or kV adjustment per patient size (includes targeted exams where dose is matched to clinical indication); or iterative reconstruction. Contrast material: ISOVUE; Contrast volume: 75 ml; Contrast route: IV; COMPARISON: CT ABDOMEN PELVIS WO CON 07/07/2024 5:17 PM FINDINGS: Liver: Normal. No mass. Gallbladder and biliary ducts: Cholecystectomy. Pancreas: Normal. No ductal dilation. Spleen: Normal. No splenomegaly. Adrenal glands: Normal. No mass. Kidneys and ureters: 4 mm intrarenal stone is seen in the lower pole on the right.. No hydronephrosis. Stomach and bowel: Sigmoid diverticulosis without diverticulitis. Appendix: No evidence of appendicitis. Intraperitoneal space: Unremarkable. No free air. No significant fluid collection. Vasculature: Unremarkable. No abdominal aortic aneurysm. Lymph nodes: Unremarkable. No enlarged lymph nodes. Urinary bladder: Unremarkable as visualized. Reproductive: Hysterectomy. Bones/joints: Unremarkable. No acute fracture. Soft tissues: Unremarkable. IMPRESSION: 1. Nonobstructing right-sided nephrolithiasis. No evidence of urolithiasis. 2. Cholecystectomy. 3. Hysterectomy. 4. Diverticulosis without diverticulitis.
[2024-09-15 01:48] LABS: Microscopic, Urine URINE MICROSCOPIC (MICROSCOPIC)
[2024-09-15 01:50] LABS: Appearance,Urine SL CLOUDY (Clear); Blood, Urine 1+ (Negative); Color,Urine YELLOW (Yellow); Glucose,Urine (UA) Negative (Negative); Ketones,Urine Negative (Negative); Leukocyte Esterase,Urine 2+ (Negative); Nitrate,Urine Negative (Negative); Protein,Urine Negative (Negative); Specific Gravity, Urine >= 1.030 (1.005-1.030); Urobilinogen,Urine 0.2 EU/dl (0.2)
[2024-09-15 01:56] LABS: Bilirubin,Urine 1+ (Negative)
[2024-09-15 01:59] LABS: Bacteria,Urine 1+ /lpf; Mucus,Urine Trace /lpf
[2024-09-15] MEDS: ACETAMINOPHEN 500MG TAB 1000 MG PO (02:03)
[2024-09-15] MEDS: MORPHINE 4MG/ML SYRINGE 4 MG IV ×2 (02:03→03:17)
[2024-09-15 02:04] LABS: Basophils % 0.6 % (0.1-2.0); Eosinophils # 0.2 K/mm3 (0.0-0.4); Eosinophils % 2.3 % (0.1-12.0); Hematocrit 39.2 % (37.0-47.0); Hemoglobin 12.9 g/dL (12.2-16.2); Lymphocytes # 3.6 K/mm3 (0.7-4.5); Lymphocytes % 50.5 % (10-50); Mean Corpuscular HGB Conc 32.9 g/dL (31.8-35.4); Mean Corpuscular Hemoglobin 31.1 pg (27.0-31.2); Mean Corpuscular Volume 94.5 fl (81-99); Mean Platelet Volume 11.1 fl (7.4-10.4); Monocytes # 0.5 K/mm3 (0.1-1.0); Monocytes % 7.2 % (1.7-9.3); Neutrophils # 2.8 K/mm3 (1.8-7.8); Neutrophils % 39.3 % (37.0-80.0); Platelet Count 290 K/mm3 (142-424); Red Blood Count 4.15 M/mm3 (4.20-5.40); Red Cell Distribution Width 12.6 % (11.5-17.5); White Blood Count 7.1 K/mm3 (4.8-10.8)
[2024-09-15 02:07] LABS: MANUAL DIFFERENTIAL MANUAL DIFFERENTIAL (MANUAL DIFF)
[2024-09-15 02:09] LABS: Albumin Level 4.2 g/dl (3.5-5.0); Chloride 107 mmol/L (98-107); Potassium 4.1 mmoL/L (3.5-5.1); Sodium 140 mmol/L (136-145)
[2024-09-15 02:11] LABS: Blood Urea Nitrogen 10 mg/dl (7-17); Estimated Glomerular Filt Rate 99 ml/min (>60); GFR (African American) 120 ML/MIN (>60)
[2024-09-15 02:12] LABS: Alanine Aminotransferase 24 U/L (12-78); Albumin/Globulin Ratio 1.6 (1.1-1.8); Alkaline Phosphatase 52 U/L (38-126); Anion Gap 13.1 mEq/L (5-15); Aspartate Amino Transferase 29 U/L (14-36); Bilirubin,Total 0.4 mg/dl (0.2-1.3); Calcium 9.2 mg/dl (8.4-10.2); Carbon Dioxide 24 mmol/L (22.0-30.0); Globulin 2.6 g/dL (1.3-3.2); Glucose 110 mg/dl (74-100); Total Protein,Serum 6.8 g/dl (6.3-8.2)
[2024-09-15 02:25] LABS: HCG Qualitative, Serum Negative (Negative)
[2024-09-15] MEDS: CEFTRIAXONE 1 GM 1 GM in 0.9 % SODIUM CHLORIDE 50 ML IV (02:37)
[2024-09-15] MEDS: IOPAMIDOL-370 (76%);100ML BOTTLE 75 ML IV (03:02)
[2024-09-15] MEDS: SODIUM CHLORIDE 0.9% 10ML SYR (RAD ONLY) 10 ML IV (03:02)
[2024-09-15] MEDS: IBUPROFEN 600 MG TABLET PO (03:17)
[2024-09-15 03:35] LABS: Eosinophils % 2 % (0-3); Lymphocytes % 53 % (10-50); Monocytes % 3 % (2-9); Neutrophils % 42 % (42-76); Platelet Estimate Normal; RBC Morphology Normal; Total Cells Counted 100
[2024-09-15 03:47] VITALS: BP 104/60; PULSE 56; RESP 18; TEMP 37.1; O2SAT 98
== END 2024-09-15 03:49 | disposition home or self-care (01) ==
PROVIDERS: Emergency Provider Emergency Medicine; PCP Family Medicine
DX: N12 Tubulo-interstitial nephritis, not specified as acute or chronic (principal); R10.9 Unspecified abdominal pain; M54.9 Dorsalgia, unspecified; R11.2 Nausea with vomiting, unspecified; R31.9 Hematuria, unspecified
CPT/HCPCS: 74177; 80053; 81001; 84703; 85007; 85025; 85027; 87040; 87086; 96365; 96374; 96375; 99285; J0696; J2270; Q9967

== ENCOUNTER 2024-09-16 13:10 | Emergency (ER) | payer OTHER, SELFPAY ==
[2024-09-16 13:11] VITALS: BP 133/99; PULSE 86; RESP 19; TEMP 36.6; O2SAT 98; BMI 38.9
[2024-09-16 13:24] LABS: Microscopic, Urine URINE MICROSCOPIC (MICROSCOPIC)
[2024-09-16 13:26] LABS: Appearance,Urine CLEAR (Clear); Bilirubin,Urine Negative (Negative); Blood, Urine TRACE-I (Negative); Color,Urine YELLOW (Yellow); Glucose,Urine (UA) Negative (Negative); Ketones,Urine Negative (Negative); Leukocyte Esterase,Urine 2+ (Negative); Nitrate,Urine Negative (Negative); PH,Urine 7.5 (5.0-8.5); Protein,Urine Negative (Negative); Urobilinogen,Urine 0.2 EU/dl (0.2)
[2024-09-16 13:33] VITALS: BP 120/71; PULSE 66; O2SAT 98
--- NOTE | 2024-09-16 13:39 | ED_ITS ---
<Statement entered by Sophy Campos MD - 09/16/24 16:05> I was consulted by the JOVANNY, and we discussed the complexity of the problems being addressed. I approved the treatment and management plan for this patient's care in the emergency department, thus performing a substantive portion of the medical decision making. Sophy Campos MD, SUZY, FACEP Discharge Plan Disposition Patient Disposition: Home, Self-Care Condition: Good Prescriptions Prescriptions: No Action aspirin 81 mg tablet,delayed release (DR/EC) 81 mg PO DAILY Rx Instructions: TAKE 1 TABLET BY MOUTH DAILY FOR HEART HEALTH bisoprolol fumarate 5 mg tablet 5 mg PO DAILY Rx Instructions: TAKE 1 TABLET BY MOUTH ONCE DAILY FOR HYPERTENSION oxycodone 5 mg tablet 5 mg PO Q8H PRN (Reason: pain) Qty: 6 0RF oxycodone 5 mg tablet 5 mg PO Q6H PRN (Reason: pain) Qty: 8 0RF sulfamethoxazole-trimethoprim 800-160 mg tablet 1 tab PO BID 7 Days Qty: 14 0RF ondansetron HCl 4 mg tablet 4 mg PO Q8H PRN (Reason: nausea and vomiting) 5 Days Qty: 30 0RF Referrals Follow up/Referrals: Gary Flanagan MD [Primary Care Provider] - See instructions Activity Restrictions/Add. Instructions Additional Instructions/Restrictions: Increase fluids, water and not soda or tea. Can drink cranberry juice or cranberry extract. Wipe front to back Wear cotton underwear Empty bladder after intercourse Start antibiotics immediately and make sure you take the full course although you may start to see improvement over the next 48 hours. You can eat yogurt or take probiotics to decrease diarrhea or yeast infection caused by the antibiotic Be sure to follow-up anytime for new or worsening symptoms in 48 hours for wound urine culture results be sure to let you PCP no recent urine for culture so they can request records and ensure that you have appropriate antibiotic if you are not getting better or getting worse. If symptoms worsen or do not improve return or be seen in the ER. Follow-up with primary care this week. Clinical Impressions Clinical Impression: Pyelonephritis Instructions Patient Instructions: Urinary Tract Infection, DI for Acute Abdominal Pain Print Language Print Language: Pashto Discharge ED Provider: Sophy Campos General Adult HPI General Chief complaint: Abdominal Pain Stated complaint: weakness, kidney stone Time Seen by Provider: 09/16/24 13:35 Mode of Arrival: Wheelchair Source of Information: Patient Limitations: No Limitations Description of Symptoms (Recalled from ER Triage Doc. by RN): pt presents to ED with c/o right sided abdominal pain that has worsened. pt was seen in ed 09/15/24 for same issue. pt reports she was discharged with medications. pt reports to taking these medications but with no relief. History of Present Illness HPI narrative: 29-year-old female presents for right side flank pain that is worsened. Patient was seen in the ED 09/15/2024 for the same issue. Patient states she has taken 1 dose of oral antibiotics pain in the right flank and pain with urination has worsened. Related Data Home Medications ?Medication ?Instructions ?Recorded ?Confirmed aspirin 81 mg tablet,delayed 81 mg PO DAILY 07/18/24 08/21/24 release bisoprolol fumarate 5 mg tablet 5 mg PO DAILY 07/18/24 08/21/24 Previous Rx's ?Medication ?Instructions ?Recorded oxycodone 5 mg tablet 5 mg PO Q6H PRN pain #8 tabs 08/21/24 oxycodone 5 mg tablet 5 mg PO Q8H PRN pain #6 tabs 08/26/24 ondansetron HCl 4 mg tablet 4 mg PO Q8H PRN nausea and 09/15/24 vomiting 5 days #30 tabs sulfamethoxazole 800 1 tab PO BID 7 days #14 tabs 09/15/24 mg-trimethoprim 160 mg tablet Allergies Allergy/AdvReac Type Severity Reaction Status Date / Time buprenorphine (From Suboxone) Allergy Intermediate Vomiting Verified 07/05/24 14:18 naloxone (From Suboxone) Allergy Intermediate Vomiting Verified 07/05/24 14:18 ketorolac (From TORADOL) Allergy Mild Verified 07/05/24 14:18 tramadol (TRAMADOL) Allergy Mild Verified 07/05/24 14:18 diphenhydramine (From Allergy Unknown I-HIVES Verified 07/05/24 14:18 BENADRYL) [facility] Disclaimer: The information contained in this section may have been updated after the patient was seen, as this information can be updated by other users. 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) Kidney stones Patient left without being seen Postoperative pain Otitis media Abdominal pain Foot callus Cellulitis Patient left without being seen Trichomonal vaginitis Postoperative abdominal pain Dysmenorrhea Menorrhagia Right lower quadrant pain Dysfunctional uterine bleeding Flank pain Palpitations SOB (shortness of breath) Concussion without loss of consciousness Microhematuria Acute right flank pain Degenerative joint disease (DJD) of lumbar spine Patient left without being seen Otitis externa Lumbar disc disease Tachycardia Back pain Dyspnea Chest pain Atypical chest pain Ovarian cyst Trichomonal cystitis Abdominal pain of unknown etiology Bilious vomiting Vomiting Closed fracture of tuft of distal phalanx of finger Pelvic pain UTI (urinary tract infection) Renal colic on left side Endometriosis Surgical History , CONTRACT ASSISTANT) Hx of tonsillectomy History of cholecystectomy History of appendectomy H/O hysterectomy with oophorectomy [place] teeth extracted S/P appendectomy S/P hysterectomy Family History , CONTRACT ASSISTANT) Diabetes Mother Father Cancer Grandmother Father Hypertension Mother Father Social History , CONTRACT ASSISTANT) Smoking Status: Current every day smoker tobacco type: cigarettes packs per day: 1 alcohol intake: never counseling provided: none substance use type: denies use current occupational status: employed and other Travel in the last 8 weeks: None household members: spouse housing: house current occupational exposures/hazards: No caffeine: Yes Have you lived/traveled outside US in past 30 days?: No Contact w/someone who lives/traveled outside US past 30 days?: No Exposure to someone with infectious disease in past 14 days?: No Do you have a fever (greater than 100.4 F or 38 C)?: No Have you tested positive for COVID-19: No Exposed to someone with COVID-19 in past 14 days?: No Do you have a sore throat?: No Do you have a cough?: No Do you have any weakness?: Yes Do you have any diarrhea?: No Are you experiencing any unusual bleeding?: No Do you have any muscle aches/pain?: Yes Do you have any abdominal pain?: No Are you experiencing loss of taste or smell?: No Other Medical History Have you received the Flu Vaccine for this season: No Have you received the Pneumonia Vaccine: No ROS Obtained: Yes Systems reviewed as appropriate & no additional complaints except as documented Physical Exam General General appearance: alert and in no apparent distress Eye Eye exam: Present normal appearance ENT ENT exam: Present normal exam Neck Neck exam: Present normal inspection Respiratory Respiratory exam: Present normal lung sounds bilaterally Cardiovascular Cardiovascular exam: Present regular rate and normal rhythm Abdominal Exam Abdominal exam: Present soft and normal bowel sounds Back Exam Back exam: Present CVA tenderness (R) Back 1 view image: 2 1. Flank pain Neurological Exam Neurological exam: Present alert and oriented X3 Psychiatric Psychiatric exam: Present normal affect Skin Skin exam: Present warm and intact Lymphatic Lymphatic Findings: no adenopathy Medical Decision Making Medical Records Medical records reviewed: Yes I reviewed the patient's medical records. Screening: Per USPSTF and CDC recommendations, given the prevalence of disease in our region, it is our hospital?s policy to screen for HIV and viral Hepatitis for all patients aged 18 and over and those with ongoing risk factors. Aram Inquiry Pt receiving controlled substance: No Vital Signs: 09/16/24 13:11 09/16/24 13:33 09/16/24 14:00 Temperature 97.9 F Temperature Source Oral Pulse Rate 66 67 Pulse Rate [Left Radial] 86 Respiratory Rate 19 Blood Pressure 120/71 111/75 Blood Pressure [Right Arm] 133/99 H Blood Pressure Mean [Right Arm] 110 02 Sat by Pulse Oximetry 98 98 98 Oxygen Delivery Method Room Air Room Air 09/16/24 14:30 09/16/24 15:00 09/16/24 16:04 Temperature 97.9 F Temperature Source Pulse Rate 62 60 60 Pulse Rate [Left Radial] Respiratory Rate 18 Blood Pressure 110/79 118/70 118/70 Blood Pressure [Right Arm] Blood Pressure Mean [Right Arm] 02 Sat by Pulse Oximetry 97 97 Oxygen Delivery Method Room Air Lab Data Lab results reviewed: Yes I reviewed the patient's lab results. Lab Results 09/16/24 13:17: Urine Color Yellow, Urine Appearance Clear, Urine pH 7.5, Ur Specific [place] 1.020, Urine Protein Negative, Urine Glucose (UA) Negative, Urine Ketones Negative, Urine Blood Trace-i, Urine Nitrate Negative, Urine Bilirubin Negative, Urine Urobilinogen 0.2, Ur Leukocyte Esterase 2+ A, Urine RBC None, Urine WBC 50-100, Ur Squamous Epith Cells 10-20, Urine Bacteria Trace, Urine Trichomonas Occasional 09/16/24 13:31: WBC 6.7, RBC 4.52, Hgb 14.1, Hct 42.5, MCV 94.0, MCH 31.2, MCHC 33.2, RDW 12.3, Plt Count 289, MPV 11.0 H, Neut % (Auto) 57.5, Lymph % (Auto) 37.0, Door % (Auto) 3.9, Eos % (Auto) 0.9, Baso % (Auto) 0.5, Neut # (Auto) 3.8, Lymph # (Auto) 2.5, Door # (Auto) 0.3, Eos # (Auto) 0.1, Baso # (Auto) 0.0, Sodium 140, Potassium 4.6, Chloride 107, Carbon Dioxide 24, Anion Gap 13.6, BUN 5 L D, Creatinine 0.60, Estimated Creat Clear 218, Estimated GFR 118, Est GFR ( Amer) 143, Glucose 106 H, Calcium 9.6, Total Bilirubin 0.4, AST 34, ALT 31 D, Alkaline Phosphatase 79, Total Protein 7.1, Albumin 4.4, Globulin 2.7, Albumin/Globulin Ratio 1.6 09/16/24 13:31 09/16/24 13:31 Orders (Tests/Meds): ED MEDICATIONS Discontinued Medications Generic Name Dose Route Start Last Admin Trade Name Freq PRN Reason Stop Dose Admin Acetaminophen 1,000 mg 09/16/24 13:51 09/16/24 14:52 Acetaminophen 1,000mg/100ml Vial IV 09/16/24 13:52 1,000 mg ONCE ONE Administration Oxycodone HCl 5 mg 09/16/24 15:58 09/16/24 16:05 Oxycodone 5mg Immediate Release Tablet PO 10/16/24 15:57 5 mg Q6HP PRN Administration Severe Pain (7-10) ORDERS Category Date Time Status CBC w/Auto Diff [Complete Blood Count Auto Diff] Stat Lab 09/16/24 13:31 Completed CMP [Comprehensive Metabolic Panel] Stat Lab 09/16/24 13:31 Completed UA [Urinalysis and Microscopic] Stat Lab 09/16/24 13:17 Completed Urine Culture Stat Micro 09/16/24 13:17 Completed Medical Decision Narrative: 29-year-old female with history of frequent kidney stones and kidney infections presents with severe right flank pain started yesterday. Patient states she was seen 09/15/24 in the ER and diagnosed with a 4 mm kidney stone and polynephritis. History was obtained, chart reviewed, CT and workup from last night reviewed. On arrival, patient is afebrile hemodynamically stable alert and oriented x 3, moving all extremities spontaneously. physical exam performed and significant for right CVA tenderness. Differential includes but is not limited to pyelonephritis, kidney stone, cholecystitis.. Patient was given [id number] patient slight improvement and correction of underlying abnormalities. Workup initiated including repeat CBC CMP UA, blood cultures-from last night preliminary says no growth .urine culture CT abdomen and pelvis with IV contrast from last night reviewed. On re-evaluation, patient remains afebrile, and states slight improvement after the IV Tylenol, patient requesting oral pain pills to take home. 1 oxycodone given in the ER. Laboratory workup independently interpreted by me and significant for urine consistent with pyelonephritis, given patient is only taken 1 dose of oral antibiotics will continue to treat as outpatient. Patient received 1 dose of IV ceftriaxone last night. And was discharged home on Bactrim and Zofran-continue those meds. Critical Care Critical Care Time Critical Care Time: No
[2024-09-16 13:41] LABS: Bacteria,Urine Trace /lpf; WBC,Urine 50-100 #/hpf (0-3)
[2024-09-16 13:42] LABS: Trichomonas,Urine Occasional /lpf
[2024-09-16 13:45] LABS: Basophils % 0.5 % (0.1-2.0); Eosinophils # 0.1 K/mm3 (0.0-0.4); Eosinophils % 0.9 % (0.1-12.0); Hematocrit 42.5 % (37.0-47.0); Hemoglobin 14.1 g/dL (12.2-16.2); Lymphocytes # 2.5 K/mm3 (0.7-4.5); Mean Corpuscular HGB Conc 33.2 g/dL (31.8-35.4); Mean Corpuscular Hemoglobin 31.2 pg (27.0-31.2); Monocytes # 0.3 K/mm3 (0.1-1.0); Monocytes % 3.9 % (1.7-9.3); Neutrophils # 3.8 K/mm3 (1.8-7.8); Neutrophils % 57.5 % (37.0-80.0); Platelet Count 289 K/mm3 (142-424); Red Blood Count 4.52 M/mm3 (4.20-5.40); Red Cell Distribution Width 12.3 % (11.5-17.5); White Blood Count 6.7 K/mm3 (4.8-10.8)
[2024-09-16 13:49] LABS: Albumin Level 4.4 g/dl (3.5-5.0); Chloride 107 mmol/L (98-107); Potassium 4.6 mmoL/L (3.5-5.1); Sodium 140 mmol/L (136-145)
[2024-09-16 13:52] LABS: Alanine Aminotransferase 31 U/L (12-78); Albumin/Globulin Ratio 1.6 (1.1-1.8); Alkaline Phosphatase 79 U/L (38-126); Anion Gap 13.6 mEq/L (5-15); Aspartate Amino Transferase 34 U/L (14-36); Bilirubin,Total 0.4 mg/dl (0.2-1.3); Blood Urea Nitrogen 5 mg/dl (7-17); Calcium 9.6 mg/dl (8.4-10.2); Carbon Dioxide 24 mmol/L (22.0-30.0); Creatinine Clearance Estimated 218 mL/min (50-200); Estimated Glomerular Filt Rate 118 ml/min (>60); GFR (African American) 143 ML/MIN (>60); Globulin 2.7 g/dL (1.3-3.2); Glucose 106 mg/dl (74-100); Total Protein,Serum 7.1 g/dl (6.3-8.2)
[2024-09-16 14:00] VITALS: BP 111/75; PULSE 67; O2SAT 98
[2024-09-16 14:30] VITALS: BP 110/79; PULSE 62; O2SAT 97
[2024-09-16] MEDS: ACETAMINOPHEN 1,000MG/100ML VIAL 1000 MG IV (14:52)
[2024-09-16 15:00] VITALS: BP 118/70; PULSE 60; O2SAT 97
[2024-09-16 16:04] VITALS: BP 118/70; PULSE 60; RESP 18; TEMP 36.6; O2SAT 99
[2024-09-16] MEDS: OXYCODONE 5MG IMMEDIATE RELEASE TABLET 5 MG PO (16:05)
--- NOTE | 2024-09-16 21:25 | PC.NURSE ---
records sent to [facility]
== END 2024-09-16 16:06 | disposition home or self-care (01) ==
PROVIDERS: Nurse Practitioner Family; Emergency Provider Student in an Organized Health Care Education/Training Program; PCP Family Medicine
DX: N12 Tubulo-interstitial nephritis, not specified as acute or chronic (principal); R10.31 Right lower quadrant pain
CPT/HCPCS: 80053; 81001; 85025; 87086; 96374; 99283; J0131

== ENCOUNTER 2024-09-25 17:52 | Emergency (ER) | payer OTHER, SELFPAY ==
[2024-09-25 17:54] VITALS: BP 116/78; PULSE 64; RESP 18; TEMP 36.7; O2SAT 98; BMI 38.9
--- NOTE | 2024-09-25 18:10 | PC.NURSE ---
pt is a difficult stick, having trouble obtaining labs or placing IV. EMS failed 2x. I attempted 2x as well, but IV infiltrated and was removed with drawing labs. Dr. Tomas Perez attempted to place u/s guided IV but was unsuccessful.
--- NOTE | 2024-09-25 18:30 | PC.NURSE ---
Pt states I have been here over an hour and a half and you haven't even gotten an IV. If you are just giving me Tylenol, I can stay at home and suffer . I let pt know she has only been here since 1751 but I did apologize for the difficulty placing an IV and obtaining labs. I also let her know Dr. Marin was pulled away for a brief time for an emergency, and would be here soon to obtain urinary cath and vaginal swabs. States she would like to leave. I s/w Dr. Marin regarding this and she states she would be glad to talk with pt, but would need to sign out AMA if she would like to leave.
[2024-09-25 18:34] VITALS: BP 126/82; PULSE 72; O2SAT 98
--- NOTE | 2024-09-25 18:40 | PC.NURSE ---
Pt decided to sign out AMA. States she will go home or go directly to [facility] where her Urologist is. I let her know if she would like to return to the ER for us to help facilitate this to please return.
[2024-09-25 19:15] VITALS: BP 126/82; PULSE 69; RESP 20; TEMP 36.6; O2SAT 98
--- NOTE | 2024-09-25 19:59 | [facility].EDGENADL ---
Discharge Plan Disposition Patient Disposition: Left Against Medical Advice Prescriptions Prescriptions: No Action aspirin 81 mg tablet,delayed release (DR/EC) 81 mg PO DAILY Rx Instructions: TAKE 1 TABLET BY MOUTH DAILY FOR HEART HEALTH bisoprolol fumarate 5 mg tablet 5 mg PO DAILY Rx Instructions: TAKE 1 TABLET BY MOUTH ONCE DAILY FOR HYPERTENSION sulfamethoxazole-trimethoprim 800-160 mg tablet 1 tab PO BID 7 Days Qty: 14 0RF ondansetron HCl 4 mg tablet 4 mg PO Q8H PRN (Reason: nausea and vomiting) 5 Days Qty: 30 0RF Clinical Impressions Clinical Impression: Left against medical advice, Abdominal pain Print Language Print Language: Kinyarwanda Discharge ED Provider: Christine Marin General Adult HPI General Chief complaint: Abdominal Pain Stated complaint: abdominal pain Time Seen by Provider: 09/25/24 17:58 Mode of Arrival: EMS Source of Information: Patient, EMS and Law Enforcement Limitations: No Limitations Description of Symptoms (Recalled from ER Triage Doc. by RN): Pt c/o low ABD pain with known kidney stone. States she follows up with urology, Dr. Clyde Bean, on (09/28). Reports nausea. She is on Bactrim and has completed this. History of Present Illness HPI narrative: This patient is a 29-year-old female with a history of recurrent urinary tract infections, trichomoniasis, tobacco dependence, obesity, dental caries, and kidney stones presenting to the emergency department for evaluation with concern for kidney stone pain. She states that her kidney stone that is known is bothering her. She is having pain on the right side of her abdomen as well as nausea. She states it has been going on for about 3 weeks now. She arrives by EMS who notes patient was stable en route. Related Data Home Medications ?Medication ?Instructions ?Recorded ?Confirmed aspirin 81 mg tablet,delayed 81 mg PO DAILY 07/18/24 09/19/24 release bisoprolol fumarate 5 mg tablet 5 mg PO DAILY 07/18/24 09/19/24 Previous Rx's ?Medication ?Instructions ?Recorded ondansetron HCl 4 mg tablet 4 mg PO Q8H PRN nausea and 09/15/24 vomiting 5 days #30 tabs sulfamethoxazole 800 1 tab PO BID 7 days #14 tabs 09/15/24 mg-trimethoprim 160 mg tablet Allergies Allergy/AdvReac Type Severity Reaction Status Date / Time ketorolac (From TORADOL) Allergy Mild Verified 09/19/24 10:49 tramadol (TRAMADOL) Allergy Mild Verified 09/19/24 10:49 diphenhydramine (From Allergy Unknown I-HIVES Verified 09/19/24 10:49 BENADRYL) [facility] Disclaimer: The information contained in this section may have been updated after the patient was seen, as this information can be updated by other users. Medical History Kidney stones Patient left without being seen Postoperative pain Otitis media Abdominal pain Foot callus Cellulitis Patient left without being seen Trichomonal vaginitis Postoperative abdominal pain Dysmenorrhea Menorrhagia Right lower quadrant pain Dysfunctional uterine bleeding Flank pain Palpitations SOB (shortness of breath) Concussion without loss of consciousness Microhematuria Acute right flank pain Degenerative joint disease (DJD) of lumbar spine Patient left without being seen Otitis externa Lumbar disc disease Tachycardia Back pain Dyspnea Chest pain Atypical chest pain Ovarian cyst Trichomonal cystitis Abdominal pain of unknown etiology Bilious vomiting Vomiting Closed fracture of tuft of distal phalanx of finger Pelvic pain UTI (urinary tract infection) Renal colic on left side Endometriosis Surgical History Hx of tonsillectomy History of cholecystectomy History of appendectomy H/O hysterectomy with oophorectomy [place] teeth extracted S/P appendectomy S/P hysterectomy Family History Mother Diabetes Hypertension Grandmother Cancer Father Cancer Hypertension Diabetes Social History Smoking Status: Current every day smoker tobacco type: cigarettes packs per day: 1 alcohol intake: never counseling provided: none substance use type: denies use current occupational status: employed and other Travel in the last 8 weeks: None household members: spouse housing: house current occupational exposures/hazards: No caffeine: Yes Have you lived/traveled outside US in past 30 days?: No Contact w/someone who lives/traveled outside US past 30 days?: No Exposure to someone with infectious disease in past 14 days?: No Do you have a fever (greater than 100.4 F or 38 C)?: No Have you tested positive for COVID-19: No Exposed to someone with COVID-19 in past 14 days?: No Do you have a sore throat?: No Do you have a cough?: No Do you have any weakness?: No Do you have any diarrhea?: No Are you experiencing any unusual bleeding?: No Do you have any muscle aches/pain?: No Do you have any abdominal pain?: Yes Are you experiencing loss of taste or smell?: No Other Medical History Have you received the Flu Vaccine for this season: No Have you received the Pneumonia Vaccine: No ROS Obtained: Yes All systems reviewed & no additional complaints except as documented Physical Exam General General appearance: alert and in no apparent distress Head Head exam: atraumatic and normocephalic Eye Eye exam: Present normal appearance, PERRL and EOMI ENT ENT exam: Present normal exam, normal oropharynx, mucous membranes moist and normal external ear exam Neck Neck exam: Present normal inspection, full ROM and trachea midline; Absent tenderness Chest Chest inspection: Present normal inspection and symmetric chest wall rise; Absent tenderness Respiratory Respiratory exam: Present normal lung sounds bilaterally; Absent respiratory distress, wheezes, stridor or accessory muscle use Cardiovascular Cardiovascular exam: Present regular rate and normal rhythm Abdominal Exam Abdominal exam: Present soft; Absent distention, tenderness or guarding Extremities Exam Extremities exam: Present normal inspection, full ROM and normal capillary refill; Absent tenderness or edema Back Exam Back exam: Present normal inspection and full ROM; Absent tenderness Neurological Exam Neurological exam: Present alert, oriented X3, CN II-XII intact and normal gait; Absent motor sensory deficit Psychiatric Psychiatric exam: Present normal affect and normal mood Skin Skin exam: Present warm and dry Medical Decision Making Medical Records Medical records reviewed: Yes I reviewed the patient's medical records. Screening: Per USPSTF and CDC recommendations, given the prevalence of disease in our region, it is our hospital?s policy to screen for HIV and viral Hepatitis for all patients aged 18 and over and those with ongoing risk factors. Aram Inquiry Pt receiving controlled substance: No Vital Signs: 09/25/24 17:54 09/25/24 18:34 09/25/24 19:15 Temperature 98.0 F 97.8 F Temperature Source Oral Pulse Rate 72 69 Pulse Rate [Right] 64 Respiratory Rate 18 20 Blood Pressure 126/82 126/82 Blood Pressure [Right Arm] 116/78 Blood Pressure Mean [Right Arm] 90 Blood Pressure Source Automatic Cuff Blood Pressure Source [Right Arm] Automatic Cuff 02 Sat by Pulse Oximetry 98 98 Oxygen Delivery Method Room Air Room Air Room Air Lab Data Lab results reviewed: Yes I reviewed the patient's lab results. Orders (Tests/Meds): ED MEDICATIONS Discontinued Medications Generic Name Dose Route Start Last Admin Trade Name [place] PRN Reason Stop Dose Admin Acetaminophen 1,000 mg 09/25/24 17:57 09/25/24 18:30 Acetaminophen 500mg Tab PO 09/25/24 17:58 Not Given ONCE ONE Ketorolac Tromethamine 15 mg 09/25/24 17:57 09/25/24 18:33 Ketorolac 30mg/Ml Vial IV 09/25/24 17:58 Not Given ONCE ONE ORDERS Category Date Time Status Complete Blood Count Auto Diff Stat Lab 09/25/24 17:57 Ordered Comprehensive Metabolic Panel Stat Lab 09/25/24 17:57 Ordered Trichomonas Vaginalis, HUSAM Stat Lab 09/25/24 17:57 Ordered Medical Decision Narrative: In summary, this patient is a 29-year-old female presenting to the Emergency Department for evaluation of right-sided abdominal pain, nausea. Differential diagnoses considered include but are not limited to ureterolithiasis, pyelonephritis, colitis, PID. Ruling out the most morbid conditions drove assessment. It should be noted patient's history includes obesity, trichomoniasis which are not at goal therapy. This complicates all aspects of care by increasing patient's risk for morbidity. I reviewed patient's past medical records and noted multiple evaluations in the emergency department for various complaints, including flank pain, abdominal pain, and dental pain. Patient has had multiple abdominal CT scans over the last several months with last one 09/15/2024 which demonstrated nonobstructing right-sided nephrolithiasis but no urolithiasis. Symptoms are not changed since then. I had discussion with her regarding the fact that this stone is likely not causing any significant pain. She states that she has been told by urologist in the past that it is causing pain. She notes she is scheduled for surgery for this stone. I also noted on medical record review the patient has had trichomoniasis in the past which was treated, however she still has trichomonas in her urine as of 09/19/2024. It does not appear that she has been on Flagyl since then. I had a long discussion with the patient regarding the fact that I do not think that her kidney stone is necessarily definitively the culprit for this and I am concern for pelvic inflammatory disease or other acute pathology as a cause given her persistent trichomoniasis and continued pain. She is nontoxic-appearing with reassuring vitals upon arrival. I advised the patient I would recommend obtaining lab evaluation and urinalysis as well as STI swabs to start out with. I ordered her Toradol and Tylenol. She has documented allergy to Toradol but has tolerated it in the past without issue. She states that she can take Tylenol at home and requests narcotic pain medication. Based on medical record review, she has received narcotic medication for various complaints multiple times in the past and I would like to wait until labs and urine have been collected to see if we potentially have a reason for her to be in pain to treat. I feel that prescribing more narcotics without known cause of pain would be harmful to the patient. At this point, patient decided to leave AGAINST MEDICAL ADVICE prior to labs, urine, swab being obtained. She demonstrates good decision-making capacity and left in stable condition. Critical Care Critical Care Time Critical Care Time: No
== END 2024-09-25 18:40 | disposition left against medical advice (07) ==
PROVIDERS: Emergency Provider Emergency Medicine; PCP Family Medicine
DX: R10.30 Lower abdominal pain, unspecified (principal); R11.0 Nausea; Z53.29 Procedure and treatment not carried out because of patient's decision for other reasons
CPT/HCPCS: 99283

== ENCOUNTER 2024-10-02 19:17 | Emergency (ER) | payer OTHER, SELFPAY ==
[2024-10-02 19:19] VITALS: BP 137/87; PULSE 68; RESP 20; TEMP 36.8; O2SAT 99; BMI 38.9
--- NOTE | 2024-10-02 20:02 | CT_ITS ---
PROCEDURE INFORMATION: Exam: CT Abdomen And Pelvis Without Contrast Exam date and time: 10/02/2024 9:00 PM Age: 29 years old Clinical indication: Abdominal pain; Additional info: Kidney stone rule out TECHNIQUE: Imaging protocol: Computed tomography of the abdomen and pelvis without contrast. Radiation optimization: All CT scans at this facility use at least one of these dose optimization techniques: automated exposure control; mA and/or kV adjustment per patient size (includes targeted exams where dose is matched to clinical indication); or iterative reconstruction. COMPARISON: CT ABDOMEN PELVIS W CON 09/15/2024 2:55 AM FINDINGS: Lungs: Lung bases are clear. Liver: Normal. No mass. Gallbladder and biliary ducts: Status post cholecystectomy. No evident bile duct dilatation allowing for prior cholecystectomy. Pancreas: Normal. No ductal dilation. Spleen: Normal. No splenomegaly. Adrenal glands: Normal. No mass. Kidneys and ureters: 1 mm stone in the mid right kidney. Interval development of mild right-sided hydroureteronephrosis extending to the bladder the related to a 4 x 2 mm obstructing stone in the distal right ureterovesical junction centered on axial image 106. Left kidney and ureter are unremarkable with no obstructing stones or uropathy. Stomach and bowel: Unremarkable. No obstruction. No mucosal thickening. Appendix: No evidence of appendicitis. Intraperitoneal space: Unremarkable. No free air. No significant fluid collection. Vasculature: Unremarkable. No abdominal aortic aneurysm. Lymph nodes: Unremarkable. No enlarged lymph nodes. Urinary bladder: Bladder nondistended which limits assessment. Reproductive: Hysterectomy. Bones/joints: Unremarkable. No acute fracture. Soft tissues: Unremarkable. IMPRESSION: Possible obstructing 4 x 2 mm stone in the distal right UVJ with mild right-sided hydroureteronephrosis.
[2024-10-02 20:07] LABS: Microscopic, Urine URINE MICROSCOPIC (MICROSCOPIC)
[2024-10-02 20:15] LABS: Urine Pregnancy, HCG Qual. Negative (Negative)
[2024-10-02 20:26] LABS: Appearance,Urine CLEAR (Clear); Blood, Urine 1+ (Negative); Color,Urine YELLOW (Yellow); Glucose,Urine (UA) Negative (Negative); Ketones,Urine 1+ (Negative); Leukocyte Esterase,Urine 1+ (Negative); Nitrate,Urine Negative (Negative); Protein,Urine TRACE (Negative); Specific Gravity, Urine >= 1.030 (1.005-1.030); Urobilinogen,Urine 0.2 EU/dl (0.2)
[2024-10-02 20:29] LABS: Bilirubin,Urine 2+ (Negative)
[2024-10-02 20:30] LABS: Bacteria,Urine Trace /lpf
--- NOTE | 2024-10-02 20:33 | PEERSUPPORT ---
Peer Support Note Patient Information Patient Information: DOS: 10/02/2024 ? Reason: ED Ps consult ? Pt stated she is in pain and needs something for pain. Pt is waiting for surgery but her doctor keeps cancelling appointments which has gone on for months. Ps shares the right of the patients to make changes to her doctors are better able and more timely on meeting needs of the patient to in hopes relief the pain to not have to seek pain medication. ? Pt is receptive and understanding agreeing this may be in her best interest. ? 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 ? Pt shares of history in family with drugs and alcohol, saying she never wants to be like them or have the struggles they have ending up or in [place] [facility]. Pt continues to share personal actions that have brought negative consequences making it hard for her to feel supported. ? Ps reassured her of support and care with nonjudgement through [facility], as well as the goal to provide best practice of care with compassion. ? Pt is appreciative of support shown expressing gratitude. ? Ps provides contact information and will provide follow up phone calls offering focused support.
--- NOTE | 2024-10-02 20:33 | HMH.ITSTN ---
pt refuses CT until meds are given. ER to call when pt is ready
--- NOTE | 2024-10-02 20:39 | ED_ITS ---
Discharge Plan Disposition Patient Disposition: Home, Self-Care Prescriptions Prescriptions: New cefdinir 300 mg capsule 300 mg PO BID 7 Days Qty: 14 0RF No Action aspirin 81 mg tablet,delayed release (DR/EC) 81 mg PO DAILY Rx Instructions: TAKE 1 TABLET BY MOUTH DAILY FOR HEART HEALTH bisoprolol fumarate 5 mg tablet 5 mg PO DAILY Rx Instructions: TAKE 1 TABLET BY MOUTH ONCE DAILY FOR HYPERTENSION sulfamethoxazole-trimethoprim 800-160 mg tablet 1 tab PO BID 7 Days Qty: 14 0RF ondansetron HCl 4 mg tablet 4 mg PO Q8H PRN (Reason: nausea and vomiting) 5 Days Qty: 30 0RF Referrals Follow up/Referrals: Gary Flanagan MD [Primary Care Provider] - See instructions Activity Restrictions/Add. Instructions Additional Instructions/Restrictions: Contact urology team to see if they can get you in earlier to help deal with right sided stone that moved and is now causing hydronephrosis. Call your family doctor to establish care for this visit to the emergency department and schedule follow-up within 48 hours to ensure improvement. If you have any worsening of your condition or any other concerning signs or symptoms, return to the emergency department or your primary care doctor for further evaluation. Take Tylenol 1000 mg every 6 hours (4 times daily) and ibuprofen 400 mg every 6 hours (4 times daily) as needed with food and water to prevent GI upset and kidney damage. Clinical Impressions Clinical Impression: Right nephrolithiasis, UTI (urinary tract infection), Hydronephrosis Instructions Patient Instructions: DI for Acute Abdominal Pain Print Language Print Language: Romansh Discharge ED Provider: Ben Biswas General Adult HPI General Chief complaint: Abdominal Pain Stated complaint: back pain blood w/urine frequent urine Time Seen by Provider: 10/02/24 19:43 Mode of Arrival: Ambulatory Source of Information: Patient Limitations: No Limitations Description of Symptoms (Recalled from ER Triage Doc. by RN): Pt presents to ED for increased urination and pain from kidney stone. Pt states she feels like the stone has moved. Pt is A&O*4 and rates pain 10/10. History of Present Illness HPI narrative: Please note that above description of symptoms, in this electronic medical record under categorization of recalled from ER triage doctor by RN are reflective of an initial nursing assessment, however, is not reflective of my full history and physical exam that was personally taken and clarified. Consequentially, this preceding description of symptoms, which may include the patient's categorized chief complaint in the EMR, do not reflect my personal clinical impression, and the ultimate description of history of present illness and patient stated complaints should be deferred to this section of the note. Unless stated otherwise or congruent with this section of the note, additional signs, symptoms, or incongruence should be interpreted as inaccurate with my clinical impression. Related Data Home Medications ?Medication ?Instructions ?Recorded ?Confirmed aspirin 81 mg tablet,delayed 81 mg PO DAILY 07/18/24 09/19/24 release bisoprolol fumarate 5 mg tablet 5 mg PO DAILY 07/18/24 09/19/24 Previous Rx's ?Medication ?Instructions ?Recorded ondansetron HCl 4 mg tablet 4 mg PO Q8H PRN nausea and 09/15/24 vomiting 5 days #30 tabs sulfamethoxazole 800 1 tab PO BID 7 days #14 tabs 09/15/24 mg-trimethoprim 160 mg tablet cefdinir 300 mg capsule 300 mg PO BID 7 days #14 caps 10/02/24 Allergies Allergy/AdvReac Type Severity Reaction Status Date / Time ketorolac (From TORADOL) Allergy Mild Verified 09/19/24 10:49 tramadol (TRAMADOL) Allergy Mild Verified 09/19/24 10:49 diphenhydramine (From Allergy Unknown I-HIVES Verified 09/19/24 10:49 BENADRYL) [facility] Disclaimer: The information contained in this section may have been updated after the patient was seen, as this information can be updated by other users. Medical History Kidney stones Patient left without being seen Postoperative pain Otitis media Abdominal pain Foot callus Cellulitis Patient left without being seen Trichomonal vaginitis Postoperative abdominal pain Dysmenorrhea Menorrhagia Right lower quadrant pain Dysfunctional uterine bleeding Flank pain Palpitations SOB (shortness of breath) Concussion without loss of consciousness Microhematuria Acute right flank pain Degenerative joint disease (DJD) of lumbar spine Patient left without being seen Otitis externa Lumbar disc disease Tachycardia Back pain Dyspnea Chest pain Atypical chest pain Ovarian cyst Trichomonal cystitis Abdominal pain of unknown etiology Bilious vomiting Vomiting Closed fracture of tuft of distal phalanx of finger Pelvic pain UTI (urinary tract infection) Renal colic on left side Endometriosis Surgical History Hx of tonsillectomy History of cholecystectomy History of appendectomy H/O hysterectomy with oophorectomy [place] teeth extracted S/P appendectomy S/P hysterectomy Family History Mother Diabetes Hypertension Grandmother Cancer Father Cancer Hypertension Diabetes Social History Smoking Status: Current every day smoker tobacco type: cigarettes packs per day: 1 alcohol intake: never counseling provided: none substance use type: denies use current occupational status: employed and other Travel in the last 8 weeks: None household members: spouse housing: house current occupational exposures/hazards: No caffeine: Yes Have you lived/traveled outside [place] in past 30 days?: No Contact w/someone who lives/traveled outside US past 30 days?: No Exposure to someone with infectious disease in past 14 days?: No Do you have a fever (greater than 100.4 F or 38 C)?: No Have you tested positive for COVID-19: No Exposed to someone with COVID-19 in past 14 days?: No Do you have a sore throat?: No Do you have a cough?: No Do you have any weakness?: No Do you have any diarrhea?: No Are you experiencing any unusual bleeding?: No Do you have any muscle aches/pain?: No Do you have any abdominal pain?: No Are you experiencing loss of taste or smell?: No Other Medical History Have you received the Flu Vaccine for this season: No Have you received the Pneumonia Vaccine: No ROS Obtained: Yes All systems reviewed & no additional complaints except as documented Physical Exam General General appearance: alert Head Head exam: atraumatic and normocephalic Eye Eye exam: Present normal appearance, PERRL and EOMI Neck Neck exam: Present normal inspection, full ROM and trachea midline Respiratory Respiratory exam: Absent respiratory distress, wheezes, stridor, accessory muscle use or prolonged expiratory phase Cardiovascular Cardiovascular exam: Present other (Pulses equal symmetric in upper and lower extremities) Abdominal Exam Abdominal exam: Present soft; Absent distention, tenderness or pulsatile mass Extremities Exam Extremities exam: Absent edema Neurological Exam Neurological exam: Present alert, oriented X3 and CN II-XII intact; Absent motor sensory deficit Skin Skin exam: Present warm and dry; Absent diaphoresis or erythema Medical Decision Making Medical Records Medical records reviewed: Yes I reviewed the patient's medical records. Screening: Per USPSTF and CDC recommendations, given the prevalence of disease in our region, it is our hospital?s policy to screen for HIV and viral Hepatitis for all patients aged 18 and over and those with ongoing risk factors. Aram Inquiry Pt receiving controlled substance: No Aram was queried for this patient: No Vital Signs: 10/02/24 19:19 10/02/24 22:23 Temperature 98.2 F 97.8 F Temperature Source Oral Oral Pulse Rate 65 Pulse Rate [Left] 68 Respiratory Rate 20 18 Blood Pressure 141/72 H Blood Pressure [Right Arm] 137/87 Blood Pressure Mean [Right Arm] 103 02 Sat by Pulse Oximetry 99 Oxygen Delivery Method Room Air Room Air Lab Data Lab Results 10/02/24 22:24: WBC 8.3, RBC 4.40, Hgb 13.9, Hct 41.6, MCV 94.5, MCH 31.6 H, MCHC 33.4, RDW 12.3, Plt Count 284, MPV 11.3 H, Neut % (Auto) 65.2, Lymph % (Auto) 27.0, [place] % (Auto) 7.1, Eos % (Auto) 0.1, Baso % (Auto) 0.4, Neut # (Auto) 5.4, Lymph # (Auto) 2.3, [place] # (Auto) 0.6, Eos # (Auto) 0.0, Baso # (Auto) 0.0, Sodium 138, Potassium 3.9, Chloride 108 H, Carbon Dioxide 22, Anion Gap 11.9, BUN 19 H, Creatinine 0.90, Estimated Creat Clear 145, Estimated GFR 74, Est GFR ( Amer) 90, Glucose 87, Calcium 9.8, Total Bilirubin 0.5, AST 35, ALT 38, Alkaline Phosphatase 87, Total Protein 7.6, Albumin 4.8, Globulin 2.8, Albumin/Globulin Ratio 1.7 10/02/24 : Urine Color Yellow, Urine Appearance Clear, Urine pH 6.0, Ur Specific [place] >= 1.030, Urine Protein Trace, Urine Glucose (UA) Negative, Urine Ketones 1+, Urine Blood 1+ A, Urine Nitrate Negative, Urine Bilirubin 2+ A, Urine Urobilinogen 0.2, Ur Leukocyte Esterase 1+ A, Urine RBC 3-5, Urine WBC 3- 5, Ur Squamous Epith Cells 3-5, Urine Bacteria Trace, Urine HCG, Qual Negative 10/02/24 22:24 10/02/24 22:24 Orders (Tests/Meds): ED MEDICATIONS Discontinued Medications Generic Name Dose Route Start Last Admin Trade Name Javonq PRN Reason Stop Dose Admin Cefdinir 300 mg 10/02/24 20:31 10/02/24 20:43 Cefdinir 300mg Capsule PO 10/02/24 20:32 300 mg ONCE ONE Administration Diphenhydramine HCl 25 mg 10/02/24 20:31 10/02/24 20:34 Diphenhydramine 25mg Capsule PO 10/02/24 20:32 Not Given ONCE ONE Ketorolac Tromethamine 30 mg 10/02/24 20:16 10/02/24 20:42 Ketorolac 30mg/Ml Vial IM 10/02/24 20:17 30 mg ONCE ONE Administration Loratadine 10 mg 10/02/24 20:37 10/02/24 20:46 Loratadine 10mg Tablet PO 10/02/24 20:38 10 mg ONCE ONE Administration Oxycodone HCl 5 mg 10/02/24 22:11 10/02/24 22:16 Oxycodone 5mg Immediate Release Tablet PO 10/02/24 22:12 5 mg ONCE ONE Administration ORDERS Category Date Time Status CT abdomen pelvis wo con Stat Cat Scan 10/02/24 20:02 Completed CBC w/Auto Diff [Complete Blood Count Auto Diff] Stat Lab 10/02/24 22:24 Completed CMP [Comprehensive Metabolic Panel] Stat Lab 10/02/24 22:24 Completed Urinalysis and Microscopic Stat Lab 10/02/24 Completed Urine , HCG Qual. Stat Lab 10/02/24 Completed Urine Culture Stat Micro 10/02/24 Received Medical Decision Narrative: 29-year-old female well-known to this emergency department for chronic abdominal and flank pain secondary to nephrolithiasis who has follow-up with urology 10/05 presenting with abdominal and flank pain. Patient states that its about the same that she has been dealing with. This is not much different. It severe, right flank, radiates into her right groin. Feels certain the stone moved. States that she has lower pelvic pressure, hematuria and urinary frequency/urgency. Took Tylenol prior to arrival. Patient is also known to this emergency department for drug-seeking behavior and mismanagement of opiate medications. On initial evaluation, asking for oxycodone. It was explained that this would be withheld unless there is a reason to be given. Initially declined Toradol, eventually accepted. History was obtained via conversation with patient and chart review. On arrival, patient hemodynamically stable, alert, oriented x4, appropriate, GCS 15, moving all extremities spontaneously, pupils equal and reactive to light. Full physical exam performed and significant for well-appearing female no acute distress. Holding her abdomen. Right flank tender, abdomen is tender as well. Differential includes nephrolithiasis, appendicitis, bowel obstruction, urinary tract infection, pyelonephritis, , ectopic , among others. Patient placed on continuous cardiac monitoring and continuous pulse ox with initial blood pressure 137/87, heart rate 68, saturation 99% on room air. Patient was given Toradol and Claritin for symptomatic management and correction of underlying abnormalities. Workup independently interpreted and significant for nonactionable urinalysis. On independent interpretation, patient does have a small stone that has since moved and she now has mild to moderate right upper stream hydronephrosis. Labs are drawn. Patient states that she wants to go home regardless of labs, but will call tomorrow at [facility] to see if she can get worked in sooner. Asking for something for pain to help her sleep the next 2 nights, I feel this is appropriate given change in pathology and oxycodone to be called in. Labs unremarkable on independent interpretation.. Patient also given first dose prior to leaving here tonight. Because patient at baseline without signs or symptoms of clinical decompensation, deemed appropriate for discharge. Results were relayed to patient who voiced understanding and were agreeable to outpatient management and follow up. I discussed my clinical impression with patient and answered all questions. At this time, the evidence for any other entities in the differential is insufficient to warrant any further testing or ED observation. This was explained as well. Advisory was given that persistent or worsening symptoms require further evaluation. I confirmed the understanding of this discussion. 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 Electronic dispatcher street department of the spoken language may permit errors. Although I have reviewed the note, some errors may still exist. Critical Care Critical Care Time Critical Care Time: No
[2024-10-02] MEDS: KETOROLAC 30MG/ML VIAL 30 MG IM (20:42)
[2024-10-02] MEDS: CEFDINIR 300MG CAPSULE 300 MG PO (20:43)
[2024-10-02] MEDS: LORATADINE 10MG TABLET 10 MG PO (20:46)
[2024-10-02] MEDS: OXYCODONE 5MG IMMEDIATE RELEASE TABLET 5 MG PO (22:16)
[2024-10-02 22:23] VITALS: BP 141/72; PULSE 65; RESP 18; TEMP 36.6; O2SAT 97
[2024-10-02 22:37] LABS: Albumin Level 4.8 g/dl (3.5-5.0); Chloride 108 mmol/L (98-107); Sodium 138 mmol/L (136-145)
[2024-10-02 22:38] LABS: Basophils % 0.4 % (0.1-2.0); Eosinophils % 0.1 % (0.1-12.0); Hematocrit 41.6 % (37.0-47.0); Hemoglobin 13.9 g/dL (12.2-16.2); Lymphocytes # 2.3 K/mm3 (0.7-4.5); Mean Corpuscular HGB Conc 33.4 g/dL (31.8-35.4); Mean Corpuscular Hemoglobin 31.6 pg (27.0-31.2); Mean Corpuscular Volume 94.5 fl (81-99); Mean Platelet Volume 11.3 fl (7.4-10.4); Monocytes # 0.6 K/mm3 (0.1-1.0); Monocytes % 7.1 % (1.7-9.3); Neutrophils # 5.4 K/mm3 (1.8-7.8); Neutrophils % 65.2 % (37.0-80.0); Platelet Count 284 K/mm3 (142-424); Potassium 3.9 mmoL/L (3.5-5.1); Red Cell Distribution Width 12.3 % (11.5-17.5); White Blood Count 8.3 K/mm3 (4.8-10.8)
[2024-10-02 22:40] LABS: Alanine Aminotransferase 38 U/L (12-78); Albumin/Globulin Ratio 1.7 (1.1-1.8); Alkaline Phosphatase 87 U/L (38-126); Anion Gap 11.9 mEq/L (5-15); Aspartate Amino Transferase 35 U/L (14-36); Bilirubin,Total 0.5 mg/dl (0.2-1.3); Blood Urea Nitrogen 19 mg/dl (7-17); Carbon Dioxide 22 mmol/L (22.0-30.0); Creatinine Clearance Estimated 145 mL/min (50-200); Estimated Glomerular Filt Rate 74 ml/min (>60); GFR (African American) 90 ML/MIN (>60); Globulin 2.8 g/dL (1.3-3.2); Total Protein,Serum 7.6 g/dl (6.3-8.2)
[2024-10-02 22:41] LABS: Calcium 9.8 mg/dl (8.4-10.2); Glucose 87 mg/dl (74-100)
== END 2024-10-02 22:27 | disposition home or self-care (01) ==
PROVIDERS: Emergency Provider Emergency Medicine; PCP Family Medicine
DX: N20.0 Calculus of kidney (principal); N13.30 Unspecified hydronephrosis; N39.0 Urinary tract infection, site not specified; R10.9 Unspecified abdominal pain; M54.9 Dorsalgia, unspecified; R35.0 Frequency of micturition; R39.15 Urgency of urination; R31.9 Hematuria, unspecified
CPT/HCPCS: 74176; 80053; 81001; 81025; 85025; 87086; 96372; 99285; J1885

== ENCOUNTER 2024-10-19 11:57 | Emergency (ER) | payer OTHER, SELFPAY ==
[2024-10-19 11:59] VITALS: BP 101/68; PULSE 90; RESP 15; TEMP 36.8; O2SAT 100; BMI 38.9
[2024-10-19 12:11] VITALS: BP 101/68; PULSE 84; O2SAT 100
--- NOTE | 2024-10-19 12:15 | HMH.EDGENADL ---
Discharge Plan Disposition Patient Disposition: Home, Self-Care Condition: Fair Prescriptions Prescriptions: New methocarbamol 500 mg tablet 500 mg PO Q8H Qty: 30 0RF No Action aspirin 81 mg tablet,delayed release (DR/EC) See Rx Instructions .ROUTE .COMPLEX Qty: 30 0RF Dose Instruction: TAKE 1 TABLET BY MOUTH DAILY FOR HEART HEALTH Rx Instructions: TAKE 1 TABLET BY MOUTH DAILY FOR HEART HEALTH bisoprolol fumarate 5 mg tablet 5 mg PO DAILY Rx Instructions: TAKE 1 TABLET BY MOUTH ONCE DAILY FOR HYPERTENSION sulfamethoxazole-trimethoprim 800-160 mg tablet 1 tab PO BID 7 Days Qty: 14 0RF ondansetron HCl 4 mg tablet 4 mg PO Q8H PRN (Reason: nausea and vomiting) 5 Days Qty: 30 0RF cefdinir 300 mg capsule 300 mg PO BID 7 Days Qty: 14 0RF Referrals Follow up/Referrals: Gary Flanaagn MD [Primary Care Provider] - See instructions Activity Restrictions/Add. Instructions Additional Instructions/Restrictions: Follow-up with your urologist in the morning as scheduled. Return to the emergency department if you develop fevers, inability urinate. Stay well-hydrated. Please follow up with your primary care provider in 2-3 days. Please return to ED if your symptoms worsen, change in location, change in severity, new symptoms develop or if you become concerned for your health. Clinical Impressions Clinical Impression: Acute flank pain Print Language Print Language: Albanian Discharge ED Provider: Dejon Bergman Adult HPI General Chief complaint: PAIN Stated complaint: hx kidney stones, back pain, abd pain Time Seen by Provider: 10/19/24 12:12 History of Present Illness HPI narrative: Patient is a 29-year-old female with frequent emergency department visits and recurrent nephrolithiasis. She is presenting today for right flank pain. She reports this is consistent with her prior kidney stones. She reports that she follows with a urologist at [place] and is scheduled for surgery in the morning. She reports that her doctor told her to come here to get a pain management medicine prescription. Per my review the EMR, she has had this similar excuse before. While she does have real pathology, will give temporary pain management here, but will not send her home with any. She denies any fevers, inability to urinate, hematuria, dysuria. She reports he is already being treated for UTI and again has follow-up with urologist tomorrow morning Related Data Home Medications ?Medication ?Instructions ?Recorded ?Confirmed bisoprolol fumarate 5 mg tablet 5 mg PO DAILY 07/18/24 10/19/24 Previous Rx's ?Medication ?Instructions ?Recorded ondansetron HCl 4 mg tablet 4 mg PO Q8H PRN nausea and 09/15/24 vomiting 5 days #30 tabs sulfamethoxazole 800 1 tab PO BID 7 days #14 tabs 09/15/24 mg-trimethoprim 160 mg tablet cefdinir 300 mg capsule 300 mg PO BID 7 days #14 caps 10/02/24 aspirin 81 mg tablet,delayed See Rx Instructions .Route 10/06/24 release .COMPLEX #30 tabs methocarbamol 500 mg tablet 500 mg PO Q8H #30 tabs 10/19/24 Allergies Allergy/AdvReac Type Severity Reaction Status Date / Time ketorolac (From TORADOL) Allergy Mild Hives Verified 10/19/24 13:24 tramadol (TRAMADOL) Allergy Mild Hives Verified 10/19/24 13:24 diphenhydramine (From Allergy Unknown I-HIVES Verified 10/19/24 13:24 BENADRYL) [facility] Disclaimer: The information contained in this section may have been updated after the patient was seen, as this information can be updated by other users. Medical History Kidney stones Patient left without being seen Postoperative pain Otitis media Abdominal pain Foot callus Cellulitis Patient left without being seen Trichomonal vaginitis Postoperative abdominal pain Dysmenorrhea Menorrhagia Right lower quadrant pain Dysfunctional uterine bleeding Flank pain Palpitations SOB (shortness of breath) Concussion without loss of consciousness Microhematuria Acute right flank pain Degenerative joint disease (DJD) of lumbar spine Patient left without being seen Otitis externa Lumbar disc disease Tachycardia Back pain Dyspnea Chest pain Atypical chest pain Ovarian cyst Trichomonal cystitis Abdominal pain of unknown etiology Bilious vomiting Vomiting Closed fracture of tuft of distal phalanx of finger Pelvic pain UTI (urinary tract infection) Renal colic on left side Endometriosis Surgical History Hx of tonsillectomy History of cholecystectomy History of appendectomy H/O hysterectomy with oophorectomy [place] teeth extracted S/P appendectomy S/P hysterectomy Family History Mother Diabetes Hypertension Grandmother Cancer Father Cancer Hypertension Diabetes Social History Smoking Status: Current every day smoker tobacco type: cigarettes packs per day: 1 alcohol intake: never counseling provided: none substance use type: denies use current occupational status: employed and other Travel in the last 8 weeks: None household members: spouse housing: house current occupational exposures/hazards: No caffeine: Yes Have you lived/traveled outside [place] in past 30 days?: No Contact w/someone who lives/traveled outside US past 30 days?: No Exposure to someone with infectious disease in past 14 days?: No Do you have a fever (greater than 100.4 F or 38 C)?: No Have you tested positive for COVID-19: No Exposed to someone with COVID-19 in past 14 days?: No Do you have a sore throat?: No Do you have a cough?: No Do you have any weakness?: No Do you have any diarrhea?: No Are you experiencing any unusual bleeding?: No Do you have any muscle aches/pain?: No Do you have any abdominal pain?: Yes Are you experiencing loss of taste or smell?: No Other Medical History Have you received the Flu Vaccine for this season: No Have you received the Pneumonia Vaccine: No ROS Obtained: Yes All systems reviewed & no additional complaints except as documented Physical Exam General General appearance: alert and in no apparent distress Head Head exam: atraumatic and normocephalic Eye Eye exam: Present PERRL and EOMI ENT ENT exam: Present normal oropharynx Neck Neck exam: Present full ROM and trachea midline Chest Chest inspection: Present symmetric chest wall rise Respiratory Respiratory exam: Present normal lung sounds bilaterally; Absent stridor Cardiovascular Cardiovascular exam: Present regular rate and normal rhythm Abdominal Exam Abdominal exam: Present soft; Absent distention or tenderness Extremities Exam Extremities exam: Present full ROM Back Exam Back exam: Present CVA tenderness (R) Neurological Exam Neurological exam: Present alert and oriented X3 Psychiatric Psychiatric exam: Present normal mood Skin Skin exam: Present warm and dry Medical Decision Making Medical Records Screening: Per USPSTF and CDC recommendations, given the prevalence of disease in our region, it is our hospital?s policy to screen for HIV and viral Hepatitis for all patients aged 18 and over and those with ongoing risk factors. Aram Inquiry Pt receiving controlled substance: No Vital Signs: 10/19/24 11:59 10/19/24 12:11 10/19/24 12:30 Temperature 98.3 F Temperature Source Oral Pulse Rate 84 76 Pulse Rate [Left Radial] 90 Respiratory Rate 15 Blood Pressure 101/68 L 114/73 Blood Pressure [Right Arm] 101/68 L Blood Pressure Mean [Right Arm] 79 02 Sat by Pulse Oximetry 100 100 100 Oxygen Delivery Method Room Air Room Air Room Air 10/19/24 13:00 Temperature Temperature Source Pulse Rate 70 Pulse Rate [Left Radial] Respiratory Rate Blood Pressure 110/69 Blood Pressure [Right Arm] Blood Pressure Mean [Right Arm] 02 Sat by Pulse Oximetry 100 Oxygen Delivery Method Room Air Lab Data Lab Results 10/19/24 12:09: Urine Color Yellow, Urine Appearance Cloudy, Urine pH 6.0, Ur Specific [place] >= 1.030, Urine Protein 1+ A, Urine Glucose (UA) Negative, Urine Ketones Negative, Urine Blood 2+ A, Urine Nitrate Negative, Urine Bilirubin Negative, Urine Urobilinogen 0.2, Ur Leukocyte Esterase 2+ A, Urine RBC 10-20, Urine WBC 10-20, Ur Squamous Epith Cells 5-10, Urine Bacteria 2+ 10/19/24 12:33: WBC 5.2, RBC 4.22, Hgb 13.0, Hct 40.5, MCV 96.0, MCH 30.8, MCHC 32.1, RDW 12.1, Plt Count 246, MPV 10.6 H, Neut % (Auto) 45.2, Lymph % (Auto) 44.8, [place] % (Auto) 7.7, Eos % (Auto) 1.5, Baso % (Auto) 0.6, Neut # (Auto) 2.3, Lymph # (Auto) 2.3, [place] # (Auto) 0.4, Eos # (Auto) 0.1, Baso # (Auto) 0.0, Sodium 140, Potassium 3.9, Chloride 106, Carbon Dioxide 27, Anion Gap 10.9, BUN 12, Creatinine 0.70, Estimated Creat Clear 187, Estimated GFR 99, Est GFR ( Amer) 120, Glucose 101 H, Calcium 9.2, Total Bilirubin 0.3, AST 29, ALT 29, Alkaline Phosphatase 69, Total Protein 6.9, Albumin 4.4, Globulin 2.5, Albumin/Globulin Ratio 1.8 10/19/24 12:33 10/19/24 12:33 Orders (Tests/Meds): ED MEDICATIONS Discontinued Medications Generic Name Dose Route Start Last Admin Trade Name [place] PRN Reason Stop Dose Admin Oxycodone HCl 5 mg 10/19/24 12:26 10/19/24 12:29 Oxycodone 5mg Immediate Release Tablet PO 10/19/24 12:27 5 mg ONCE ONE Administration ORDERS Category Date Time Status Complete Blood Count Auto Diff Stat Lab 10/19/24 12:33 Completed Comprehensive Metabolic Panel Stat Lab 10/19/24 12:33 Completed Urinalysis and Microscopic Stat Lab 10/19/24 12:09 Completed Urine Culture Stat Micro 10/19/24 12:09 Received Medical Decision Narrative: In summary, this 29-year-old female presents to the emergency department today with flank pain. On initial evaluation patient is afebrile, tachycardic, otherwise stable. On exam, is warm well-perfused with full pulses in all extremities. She has right CVA and right lower quadrant abdominal pain. Although exam is not consistent and when distracted, she is not always complaining of the pain. She is still making urine and able to give a good urine sample here.. Differential diagnosis includes but is not limited to nephrolithiasis, ureterolithiasis, obstructing stone, UTI. Based on these concerns, I ordered CBC CMP urinalysis. I reviewed prior records including as above in the HPI. Patient received Robaxin, oxycodone for treatment. Labs personally reviewed demonstrate no evidence of ARTEMIO. Some white blood cells, however being treated right now for UTI, given that she does not have leukocytosis and does not appear systemically ill, favored not to treat at this time. I considered CT renal stone protocol, but patient reports that she feels consistent between her last scan that was received at her urologist 2 weeks ago. She reports that she is still making good urine, felt that the scan would not add anything of value given that she is going for ureteral stent tomorrow. On reassessment patient reports some improvement in her pain, but continues to ask for narcotics. Per my review of the MAR, she frequently visits the emergency department requesting narcotics. I will defer any home narcotic prescriptions to her urologist, will give her an additional dose of oxycodone here, strict precautions are given, questions answered patient bone plan and discharge at this time.. Of note, social determinants of health include poor health literacy. At this time it was felt that the patient was safe to be discharged home. The patient was in agreement with this plan. The patient was given strict return precautions prior to being discharged from the emergency department. Critical Care Critical Care Time Critical Care Time: No
[2024-10-19] MEDS: OXYCODONE 5MG IMMEDIATE RELEASE TABLET 5 MG PO ×2 (12:29→13:30)
[2024-10-19 12:30] VITALS: BP 114/73; PULSE 76; O2SAT 100
[2024-10-19 12:41] LABS: Microscopic, Urine URINE MICROSCOPIC (MICROSCOPIC)
[2024-10-19 12:42] LABS: Basophils % 0.6 % (0.1-2.0); Eosinophils # 0.1 K/mm3 (0.0-0.4); Eosinophils % 1.5 % (0.1-12.0); Hematocrit 40.5 % (37.0-47.0); Lymphocytes # 2.3 K/mm3 (0.7-4.5); Lymphocytes % 44.8 % (10-50); Mean Corpuscular HGB Conc 32.1 g/dL (31.8-35.4); Mean Corpuscular Hemoglobin 30.8 pg (27.0-31.2); Mean Platelet Volume 10.6 fl (7.4-10.4); Monocytes # 0.4 K/mm3 (0.1-1.0); Monocytes % 7.7 % (1.7-9.3); Neutrophils # 2.3 K/mm3 (1.8-7.8); Neutrophils % 45.2 % (37.0-80.0); Platelet Count 246 K/mm3 (142-424); Red Blood Count 4.22 M/mm3 (4.20-5.40); Red Cell Distribution Width 12.1 % (11.5-17.5); White Blood Count 5.2 K/mm3 (4.8-10.8)
[2024-10-19 12:45] LABS: Appearance,Urine CLOUDY (Clear); Bilirubin,Urine Negative (Negative); Blood, Urine 2+ (Negative); Color,Urine YELLOW (Yellow); Glucose,Urine (UA) Negative (Negative); Ketones,Urine Negative (Negative); Leukocyte Esterase,Urine 2+ (Negative); Nitrate,Urine Negative (Negative); Protein,Urine 1+ (Negative); Specific Gravity, Urine >= 1.030 (1.005-1.030); Urobilinogen,Urine 0.2 EU/dl (0.2)
[2024-10-19 12:48] LABS: Albumin Level 4.4 g/dl (3.5-5.0); Chloride 106 mmol/L (98-107); Sodium 140 mmol/L (136-145)
[2024-10-19 12:49] LABS: Potassium 3.9 mmoL/L (3.5-5.1)
[2024-10-19 12:51] LABS: Alanine Aminotransferase 29 U/L (12-78); Anion Gap 10.9 mEq/L (5-15); Aspartate Amino Transferase 29 U/L (14-36); Blood Urea Nitrogen 12 mg/dl (7-17); Carbon Dioxide 27 mmol/L (22.0-30.0); Creatinine Clearance Estimated 187 mL/min (50-200); Estimated Glomerular Filt Rate 99 ml/min (>60); GFR (African American) 120 ML/MIN (>60)
[2024-10-19 12:52] LABS: Albumin/Globulin Ratio 1.8 (1.1-1.8); Alkaline Phosphatase 69 U/L (38-126); Bilirubin,Total 0.3 mg/dl (0.2-1.3); Calcium 9.2 mg/dl (8.4-10.2); Globulin 2.5 g/dL (1.3-3.2); Glucose 101 mg/dl (74-100); Total Protein,Serum 6.9 g/dl (6.3-8.2)
[2024-10-19 12:59] LABS: Bacteria,Urine 2+ /lpf
[2024-10-19 13:00] VITALS: BP 110/69; PULSE 70; O2SAT 100
--- NOTE | 2024-10-19 13:20 | PC.NURSE ---
1233 Pt was straight stick for lab work.
[2024-10-19 13:36] VITALS: BP 110/72; PULSE 63; RESP 16; TEMP 36.7; O2SAT 100
--- NOTE | 2024-10-23 07:49 | PC.NURSE ---
discussed with about urine culture, no new orders, waiting on final read
== END 2024-10-19 13:37 | disposition home or self-care (01) ==
PROVIDERS: Emergency Provider Emergency Medicine; PCP Family Medicine
DX: R10.9 Unspecified abdominal pain (principal); M54.9 Dorsalgia, unspecified; F17.210 Nicotine dependence, cigarettes, uncomplicated
CPT/HCPCS: 80053; 81001; 85025; 87086; 87088; 99283

== ENCOUNTER 2024-10-21 12:36 | Emergency (ER) | payer OTHER, SELFPAY ==
[2024-10-21 12:38] VITALS: BP 130/70; PULSE 96; RESP 20; TEMP 36.8; O2SAT 96; BMI 39.8
--- NOTE | 2024-10-21 12:57 | ED_ITS ---
<Statement entered by Anayeli Saunders MD - 10/21/24 15:39> I was consulted by the JOVANNY, and we discussed the complexity of problems being addressed. I approved the treatment and management plan for this patient's care in the emergency department, thus performing a substantial portion of the medical decision making. I personally evaluated the patient. I agree with the assessment and plan documented by the JOVANNY. I reviewed labs which are reassuring especially since patient has not had any acute change in her symptoms, kidney function remains good with creatinine 0.7. UA with leukocyte esterase but nitrate negative. Patient is still on oral antibiotics. I do not believe further intervention is indicated at this time. I also do not believe she requires any additional imaging since her symptoms have remained unchanged and she has known right ureteral stone but reassuring labs. Patient had received 1 dose of oral oxycodone in the ER for acute pain management. I will not be prescribing additional narcotic medication to this patient despite her multiple requests. Despite being denied this by the JOVANNY, she demanded to talk to me and I reiterated that no prescriptions would be provided. Review of PDMP demonstrates since September 13 of this year patient has received 10 different prescriptions from 6 different providers of either oxycodone?acetaminophen or hydrocodone?acetaminophen. Patient reported to me she only needs the narcotic pain medications at night and asked me to give her 2 doses of it to get her through until surgery. After reviewing PDMP and the quantity of pills that she has received since the beginning of the year which does not correlate with her report of only taking them at night, I will not be prescribing narcotic pain medication. Review of previous records demonstrates she has repeatedly been instructed to call her urologist for refills of any pain medications. She reports that she could not get a hold of them today. She had been seen in our ER 2 days ago and told to contact her urologist at that time. Patient reports that she did this, however PDMP does not demonstrate any new prescription from her urologist at that time, whether this was an intentional decision by her urologist or not is unknown. Patient has stable vitals and on my repeated assessments of her she was always comfortably playing on her phone, clearly in no distress. I explained to her why I would not be prescribing additional medications and instructed her to again call her urologist office if she believes she needed more medication prior to her surgery. I explained that she did not require admission or transfer at this time given her stable symptoms and reassuring labs. Patient was given instructions on symptomatic management, follow up instructions, and return precautions for the emergency department. Patient indicated understanding and was discharged in stable condition. Ambulated independently out of the ER. Anayeli Saunders MD Discharge Plan Disposition Patient Disposition: Home, Self-Care Prescriptions Prescriptions: No Action aspirin 81 mg tablet,delayed release (DR/EC) See Rx Instructions .ROUTE .COMPLEX Qty: 30 0RF Dose Instruction: TAKE 1 TABLET BY MOUTH DAILY FOR HEART HEALTH Rx Instructions: TAKE 1 TABLET BY MOUTH DAILY FOR HEART HEALTH bisoprolol fumarate 5 mg tablet 5 mg PO DAILY Rx Instructions: TAKE 1 TABLET BY MOUTH ONCE DAILY FOR HYPERTENSION sulfamethoxazole-trimethoprim 800-160 mg tablet 1 tab PO BID 7 Days Qty: 14 0RF ondansetron HCl 4 mg tablet 4 mg PO Q8H PRN (Reason: nausea and vomiting) 5 Days Qty: 30 0RF cefdinir 300 mg capsule 300 mg PO BID 7 Days Qty: 14 0RF methocarbamol 500 mg tablet 500 mg PO Q8H Qty: 30 0RF Referrals Follow up/Referrals: Gary Flanagan MD [Primary Care Provider] - See instructions Activity Restrictions/Add. Instructions Additional Instructions/Restrictions: Increase fluids and rest. Take your antibiotics that you are currently on. Call your urologist for any other problems or concerns. Clinical Impressions Clinical Impression: Kidney stone Instructions Patient Instructions: DI for Kidney Stones Print Language Print Language: Mohawk Discharge ED Provider: Anayeli Saunders General Adult HPI General Chief complaint: Abdominal Pain Stated complaint: back pain abd pain vomiting bp elevated Time Seen by Provider: 10/21/24 12:45 Mode of Arrival: Ambulatory Source of Information: Patient Limitations: No Limitations Description of Symptoms (Recalled from ER Triage Doc. by RN): Patient presents ambulatory to triage. States she was recently diagnosed with a lodged kidney stone in her right ureter. States she was scheduled for surgery on Wednesday, but her urologist's went into labor and had to cancel the procedure. States she is scheduled for the procedure on Wednesday now. States that the pain has become increasingly intolerable. States she has been taking Tylenol and Ibuprofen with no results. Endorses nausea. States she has been taking Zofran with no results. Endorses one episode of vomiting. Denies fevers. History of Present Illness HPI narrative: 29-year-old female presents to the ED today for complaint of right sided kidney pain. She has a kidney stone that is lodged in her right ureter. She states that she was scheduled for surgery Wednesday but got moved to Wednesday. She saw Ayleen Kumari nurse practitioner this past and she told patient that the stone was still there and that she would have to have a stent placed. She is on amoxicillin and Bactrim. She has been taking Tylenol and ibuprofen at home and this has not been helping. She does have some nausea. She has been taking Zofran as well and says this has not been working. She has had no fevers. No other symptoms at this time. Related Data Home Medications ?Medication ?Instructions ?Recorded ?Confirmed bisoprolol fumarate 5 mg tablet 5 mg PO DAILY 07/18/24 10/19/24 Previous Rx's ?Medication ?Instructions ?Recorded ondansetron HCl 4 mg tablet 4 mg PO Q8H PRN nausea and 09/15/24 vomiting 5 days #30 tabs sulfamethoxazole 800 1 tab PO BID 7 days #14 tabs 09/15/24 mg-trimethoprim 160 mg tablet cefdinir 300 mg capsule 300 mg PO BID 7 days #14 caps 10/02/24 aspirin 81 mg tablet,delayed See Rx Instructions .Route 10/06/24 release .COMPLEX #30 tabs methocarbamol 500 mg tablet 500 mg PO Q8H #30 tabs 10/19/24 Allergies Allergy/AdvReac Type Severity Reaction Status Date / Time ketorolac (From TORADOL) Allergy Mild Hives Verified 10/19/24 13:24 tramadol (TRAMADOL) Allergy Mild Hives Verified 10/19/24 13:24 diphenhydramine (From Allergy Unknown I-HIVES Verified 10/19/24 13:24 BENADRYL) [facility] Disclaimer: The information contained in this section may have been updated after the patient was seen, as this information can be updated by other users. Medical History Kidney stones Patient left without being seen Postoperative pain Otitis media Abdominal pain Foot callus Cellulitis Patient left without being seen Trichomonal vaginitis Postoperative abdominal pain Dysmenorrhea Menorrhagia Right lower quadrant pain Dysfunctional uterine bleeding Flank pain Palpitations SOB (shortness of breath) Concussion without loss of consciousness Microhematuria Acute right flank pain Degenerative joint disease (DJD) of lumbar spine Patient left without being seen Otitis externa Lumbar disc disease Tachycardia Back pain Dyspnea Chest pain Atypical chest pain Ovarian cyst Trichomonal cystitis Abdominal pain of unknown etiology Bilious vomiting Vomiting Closed fracture of tuft of distal phalanx of finger Pelvic pain UTI (urinary tract infection) Renal colic on left side Endometriosis Surgical History Hx of tonsillectomy History of cholecystectomy History of appendectomy H/O hysterectomy with oophorectomy [place] teeth extracted S/P appendectomy S/P hysterectomy Family History Mother Diabetes Hypertension Grandmother Cancer Father Cancer Hypertension Diabetes Social History Smoking Status: Current every day smoker tobacco type: cigarettes packs per day: 1 alcohol intake: never counseling provided: none substance use type: denies use current occupational status: employed and other Travel in the last 8 weeks: None household members: spouse housing: house current occupational exposures/hazards: No caffeine: Yes Have you lived/traveled outside US in past 30 days?: No Contact w/someone who lives/traveled outside US past 30 days?: No Exposure to someone with infectious disease in past 14 days?: No Do you have a fever (greater than 100.4 F or 38 C)?: No Have you tested positive for COVID-19: No Exposed to someone with COVID-19 in past 14 days?: No Do you have a sore throat?: No Do you have a cough?: No Do you have any weakness?: No Do you have any diarrhea?: No Are you experiencing any unusual bleeding?: No Do you have any muscle aches/pain?: No Do you have any abdominal pain?: Yes Are you experiencing loss of taste or smell?: No Other Medical History Have you received the Flu Vaccine for this season: No Have you received the Pneumonia Vaccine: No ROS Obtained: Yes Systems reviewed as appropriate & no additional complaints except as documented Physical Exam General General appearance: alert and in no apparent distress Head Head exam: atraumatic and normocephalic Eye Eye exam: Present normal appearance, PERRL and EOMI ENT ENT exam: Present mucous membranes moist Neck Neck exam: Present normal inspection and full ROM Respiratory Respiratory exam: Present normal lung sounds bilaterally Cardiovascular Cardiovascular exam: Present regular rate, normal rhythm, normal heart sounds, +S1 and +S2 Abdominal Exam Abdominal exam: Present soft and normal bowel sounds Extremities Exam Extremities exam: Present full ROM Back Exam Back exam: Present CVA tenderness (R) Neurological Exam Neurological exam: Present alert and oriented X3 Skin Skin exam: Present warm, dry and intact Medical Decision Making Medical Records Screening: Per USPSTF and CDC recommendations, given the prevalence of disease in our region, it is our hospital?s policy to screen for HIV and viral Hepatitis for all patients aged 18 and over and those with ongoing risk factors. Raam Inquiry Pt receiving controlled substance: No Aram was queried for this patient: No Vital Signs: 10/21/24 12:38 10/21/24 12:59 10/21/24 13:30 Temperature 98.3 F Temperature Source Oral Pulse Rate 80 70 Pulse Rate [Radial] 96 H Respiratory Rate 20 Blood Pressure 137/90 126/89 Blood Pressure [R Arm] 130/70 Blood Pressure Mean [R Arm] 90 Blood Pressure Source [R Arm] Automatic Cuff 02 Sat by Pulse Oximetry 96 96 96 Oxygen Delivery Method Room Air Room Air Room Air 10/21/24 14:00 Temperature Temperature Source Pulse Rate 66 Pulse Rate [Radial] Respiratory Rate Blood Pressure 109/70 L Blood Pressure [R Arm] Blood Pressure Mean [R Arm] Blood Pressure Source [R Arm] 02 Sat by Pulse Oximetry 96 Oxygen Delivery Method Room Air Lab Data Lab results reviewed: Yes I reviewed the patient's lab results. Lab Results 10/21/24 12:55: WBC 5.5, RBC 4.32, Hgb 13.7, Hct 40.9, MCV 94.7, MCH 31.7 H, MCHC 33.5, RDW 11.9, Plt Count 298, MPV 10.8 H, Neut % (Auto) 62.3, Lymph % (Auto) 31.2, [place] % (Auto) 5.5, Eos % (Auto) 0.4, Baso % (Auto) 0.4, Neut # (Auto) 3.4, Lymph # (Auto) 1.7, [place] # (Auto) 0.3, Eos # (Auto) 0.0, Baso # (Auto) 0.0, Sodium 141, Potassium 4.1, Chloride 104, Carbon Dioxide 24, Anion Gap 17.1 H, BUN 8 D, Creatinine 0.70, Estimated Creat Clear 191, Estimated GFR 99, Est GFR ( Amer) 120, Glucose 111 H, Calcium 9.6, Total Bilirubin 0.4, AST 27, ALT 26, Alkaline Phosphatase 80, Total Protein 7.5, Albumin 4.8, Globulin 2.7, Albumin/Globulin Ratio 1.8 10/21/24 13:47: Urine Color Yellow, Urine Appearance Clear, Urine pH 7.5, Ur Specific [place] 1.020, Urine Protein Negative, Urine Glucose (UA) Negative, Urine Ketones Negative, Urine Blood Trace-l, Urine Nitrate Negative, Urine Bilirubin Negative, Urine Urobilinogen 0.2, Ur Leukocyte Esterase 2+ A 10/21/24 12:55 10/21/24 12:55 Orders (Tests/Meds): ED MEDICATIONS Discontinued Medications Generic Name Dose Route Start Last Admin Trade Name Freq PRN Reason Stop Dose Admin Oxycodone/Acetaminophen 1 each 10/21/24 12:59 10/21/24 13:08 Oxycodone 10mg W/Apap 325mg Tablet PO 10/21/24 13:00 1 each ONCE ONE Administration ORDERS Category Date Time Status CBC w/Auto Diff [Complete Blood Count Auto Diff] Stat Lab 10/21/24 12:55 Completed Comprehensive Metabolic Panel Stat Lab 10/21/24 12:55 Completed Urinalysis and Microscopic Stat Lab 10/21/24 13:47 Results Urine Culture Stat Micro 10/21/24 13:47 Received Medical Decision Narrative: Insert review patient is a 29-year-old female presenting to the emergency department for evaluation of right sided kidney stone. She states that she has a kidney stone that is stuck in her ureter .. Patient is hemodynamically stable and nontoxic-appearing upon arrival, afebrile. Differential diagnosis includes kidney stone, infected stone, hydronephrosis, UTI among others. Workup will be conducted with CBC, CMP and a UA. Initial inventions include oxycodone for her pain. Patient had a essentially normal CBC with normal white count and normal CMP. She had 2+ leuks on her urinalysis. This is already being treated by her urologist with amoxicillin and Bactrim. She saw Ayleen Kumari nurse practitioner on who started treating her for this.. No imaging was performed today as she is known to have a 4 mm kidney stone. She is scheduled for a stent placement on October 23. Jesse Gooden has already seen patient in office as well as Ayleen Kumari, nurse practitioner. Patient and I discussed her doing a 24-hour urine for her urologist. We discussed the directions to do this. She and I also discussed taking Tylenol and ibuprofen for pain while she is at home. Patient asked specifically for 2 oxycodone, 1 for tonight and 1 for tomorrow night. She and I had a discussion about narcotic pain medication and that we would not be prescribing narcotic pain medication to her today. She continued to request narcotic pain medication. Dr. Saunders spoke with her about this as well. Patient is safe for discharge home. Critical Care Critical Care Time Critical Care Time: No
[2024-10-21 12:59] VITALS: BP 137/90; PULSE 80; O2SAT 96
[2024-10-21] MEDS: OXYCODONE 10MG W/APAP 325MG TABLET 1 EACH PO (13:08)
[2024-10-21 13:13] LABS: Alanine Aminotransferase 26 U/L (12-78); Albumin Level 4.8 g/dl (3.5-5.0); Albumin/Globulin Ratio 1.8 (1.1-1.8); Alkaline Phosphatase 80 U/L (38-126); Anion Gap 17.1 mEq/L (5-15); Aspartate Amino Transferase 27 U/L (14-36); Basophils % 0.4 % (0.1-2.0); Bilirubin,Total 0.4 mg/dl (0.2-1.3); Blood Urea Nitrogen 8 mg/dl (7-17); Calcium 9.6 mg/dl (8.4-10.2); Carbon Dioxide 24 mmol/L (22.0-30.0); Chloride 104 mmol/L (98-107); Creatinine Clearance Estimated 191 mL/min (50-200); Eosinophils % 0.4 % (0.1-12.0); Estimated Glomerular Filt Rate 99 ml/min (>60); GFR (African American) 120 ML/MIN (>60); Globulin 2.7 g/dL (1.3-3.2); Glucose 111 mg/dl (74-100); Hematocrit 40.9 % (37.0-47.0); Hemoglobin 13.7 g/dL (12.2-16.2); Lymphocytes # 1.7 K/mm3 (0.7-4.5); Lymphocytes % 31.2 % (10-50); Mean Corpuscular HGB Conc 33.5 g/dL (31.8-35.4); Mean Corpuscular Hemoglobin 31.7 pg (27.0-31.2); Mean Corpuscular Volume 94.7 fl (81-99); Mean Platelet Volume 10.8 fl (7.4-10.4); Monocytes # 0.3 K/mm3 (0.1-1.0); Monocytes % 5.5 % (1.7-9.3); Neutrophils # 3.4 K/mm3 (1.8-7.8); Neutrophils % 62.3 % (37.0-80.0); Platelet Count 298 K/mm3 (142-424); Potassium 4.1 mmoL/L (3.5-5.1); Red Blood Count 4.32 M/mm3 (4.20-5.40); Red Cell Distribution Width 11.9 % (11.5-17.5); Sodium 141 mmol/L (136-145); Total Protein,Serum 7.5 g/dl (6.3-8.2); White Blood Count 5.5 K/mm3 (4.8-10.8)
[2024-10-21 13:30] VITALS: BP 126/89; PULSE 70; O2SAT 96
[2024-10-21 13:56] LABS: Microscopic, Urine URINE MICROSCOPIC (MICROSCOPIC)
[2024-10-21 13:57] LABS: Appearance,Urine CLEAR (Clear); Bilirubin,Urine Negative (Negative); Blood, Urine TRACE-L (Negative); Color,Urine YELLOW (Yellow); Glucose,Urine (UA) Negative (Negative); Ketones,Urine Negative (Negative); Leukocyte Esterase,Urine 2+ (Negative); Nitrate,Urine Negative (Negative); PH,Urine 7.5 (5.0-8.5); Protein,Urine Negative (Negative); Urobilinogen,Urine 0.2 EU/dl (0.2)
[2024-10-21 14:00] VITALS: BP 109/70; PULSE 66; O2SAT 96
--- NOTE | 2024-10-21 14:25 | PC.NURSE ---
DR CHAVEZ AT BEDSIDE TO UPDATE PT
[2024-10-21 14:30] LABS: RBC,Urine Occasional #/hpf (0-3); Trichomonas,Urine Occasional /lpf
[2024-10-21 14:31] VITALS: BP 115/81; PULSE 60; RESP 20; TEMP 36.8; O2SAT 100
[2024-10-21 14:31] LABS: Bacteria,Urine Trace /lpf
--- NOTE | 2024-10-22 19:02 | PC.NURSE ---
URINE CULTURE DISCUSSED WITH DR RAMIRES, NO NEW ORDERS
== END 2024-10-21 14:34 | disposition home or self-care (01) ==
PROVIDERS: Nurse Practitioner; Emergency Provider Emergency Medicine; PCP Family Medicine
DX: N20.0 Calculus of kidney (principal); R10.9 Unspecified abdominal pain; R11.2 Nausea with vomiting, unspecified; M54.9 Dorsalgia, unspecified; F17.210 Nicotine dependence, cigarettes, uncomplicated
CPT/HCPCS: 80053; 81001; 85025; 87086; 99283

== ENCOUNTER 2024-11-05 15:31 | Emergency (ER) | payer OTHER, SELFPAY ==
[2024-11-05 15:32] VITALS: BP 124/86; PULSE 87; RESP 18; TEMP 36.6; O2SAT 100; BMI 39.8
--- NOTE | 2024-11-05 15:51 | [facility].EDGENADL ---
Discharge Plan Disposition Patient Disposition: Home, Self-Care Condition: Good Prescriptions Prescriptions: No Action ibuprofen 800 mg tablet 800 mg PO Q8H Qty: 20 0RF amoxicillin-pot clavulanate 875-125 mg tablet 1 tab PO BID 10 Days Qty: 20 0RF aspirin 81 mg tablet,delayed release (DR/EC) See Rx Instructions .ROUTE .COMPLEX Qty: 30 0RF Dose Instruction: TAKE 1 TABLET BY MOUTH DAILY FOR HEART HEALTH Rx Instructions: TAKE 1 TABLET BY MOUTH DAILY FOR HEART HEALTH bisoprolol fumarate 5 mg tablet 5 mg PO DAILY Rx Instructions: TAKE 1 TABLET BY MOUTH ONCE DAILY FOR HYPERTENSION sulfamethoxazole-trimethoprim 800-160 mg tablet 1 tab PO BID 7 Days Qty: 14 0RF Referrals Follow up/Referrals: Gary Flanagan MD [Primary Care Provider] - See instructions Activity Restrictions/Add. Instructions Additional Instructions/Restrictions: You were seen for dental pain. Please follow up with your dentist this week. Return to ED if you have any fluid collection noted orally. Clinical Impressions Clinical Impression: Dental caries Instructions Patient Instructions: DI for Tooth Decay, DI for Dental Pain Print Language Print Language: Dutch Discharge ED Provider: Ben Biswas General Adult HPI <AME Raymond - Last Filed: 11/05/24 15:57> General Chief complaint: Dental/Oral Stated complaint: dental pain Time Seen by Provider: 11/05/24 15:34 Mode of Arrival: Ambulatory Source of Information: Patient Limitations: No Limitations Description of Symptoms (Recalled from ER Triage Doc. by RN): Patient complaint of right sided tooth pain that started approx 2 days ago. States that she has already taken her amoxicillin and ibuprofen 800mg and has a dental appointment on Wednesday. History of Present Illness HPI narrative: Patient presents with right upper and lower dental pain. She is currently taking amoxicillin and has had follow-up with dentistry on Wednesday. She reports that it is painful to eat and she has cold intolerance. She has taken ibuprofen, Tylenol. She has nausea without vomiting. Denies current . complaint: dental pain Onset (ago): day(s) Location: mouth Severity: moderate Quality: aching Consistency: constant Relieving factors: none Exacerbating factors: eating Associated symptoms: negative fever/chills Treatments prior to arrival: NSAID Related Data Home Medications ?Medication ?Instructions ?Recorded ?Confirmed bisoprolol fumarate 5 mg tablet 5 mg PO DAILY 07/18/24 10/31/24 Previous Rx's ?Medication ?Instructions ?Recorded sulfamethoxazole 800 1 tab PO BID 7 days #14 tabs 09/15/24 mg-trimethoprim 160 mg tablet aspirin 81 mg tablet,delayed See Rx Instructions .Route 10/06/24 release .COMPLEX #30 tabs amoxicillin 875 mg-potassium 1 tab PO BID 10 days #20 tabs 10/31/24 clavulanate 125 mg tablet ibuprofen 800 mg tablet 800 mg PO Q8H #20 tabs 10/31/24 Allergies Allergy/AdvReac Type Severity Reaction Status Date / Time ketorolac (From TORADOL) Allergy Mild Hives Verified 10/31/24 17:08 tramadol (TRAMADOL) Allergy Mild Hives Verified 10/31/24 17:08 diphenhydramine (From Allergy Unknown I-HIVES Verified 10/31/24 17:08 BENADRYL) [facility] <AME Raymond - Last Filed: 11/05/24 15:57> [facility] Disclaimer: The information contained in this section may have been updated after the patient was seen, as this information can be updated by other users. Medical History Kidney stones Patient left without being seen Postoperative pain Otitis media Abdominal pain Foot callus Cellulitis Patient left without being seen Trichomonal vaginitis Postoperative abdominal pain Dysmenorrhea Menorrhagia Right lower quadrant pain Dysfunctional uterine bleeding Flank pain Palpitations SOB (shortness of breath) Concussion without loss of consciousness Microhematuria Acute right flank pain Degenerative joint disease (DJD) of lumbar spine Patient left without being seen Otitis externa Lumbar disc disease Tachycardia Back pain Dyspnea Chest pain Atypical chest pain Ovarian cyst Trichomonal cystitis Abdominal pain of unknown etiology Bilious vomiting Vomiting Closed fracture of tuft of distal phalanx of finger Pelvic pain UTI (urinary tract infection) Renal colic on left side Endometriosis Surgical History Hx of tonsillectomy History of cholecystectomy History of appendectomy H/O hysterectomy with oophorectomy [place] teeth extracted S/P appendectomy S/P hysterectomy Family History Mother Diabetes Hypertension Grandmother Cancer ovarian and breast Father Cancer Hypertension Diabetes Social History Smoking Status: Current every day smoker tobacco type: cigarettes packs per day: 1 alcohol intake: never counseling provided: none substance use type: denies use current occupational status: employed and other Travel in the last 8 weeks: None household members: spouse housing: house current occupational exposures/hazards: No caffeine: Yes Have you lived/traveled outside US in past 30 days?: No Contact w/someone who lives/traveled outside US past 30 days?: No Exposure to someone with infectious disease in past 14 days?: No Do you have a fever (greater than 100.4 F or 38 C)?: No Have you tested positive for COVID-19: No Exposed to someone with COVID-19 in past 14 days?: No Do you have a sore throat?: No Do you have a cough?: No Do you have any weakness?: No Do you have any diarrhea?: No Are you experiencing any unusual bleeding?: No Do you have any muscle aches/pain?: No Do you have any abdominal pain?: No Are you experiencing loss of taste or smell?: No Other Medical History Have you received the Flu Vaccine for this season: No Have you received the Pneumonia Vaccine: No <AEM Raymond - Last Filed: 11/05/24 15:57> ROS Obtained: Yes Systems reviewed as appropriate & no additional complaints except as documented Physical Exam <AME Raymond - Last Filed: 11/05/24 15:57> General General appearance: alert and in no apparent distress Head Head exam: atraumatic and normocephalic Eye Eye exam: Present normal appearance and EOMI ENT ENT exam: Present other (tender right upper and lower gum line. No fluid collection or drainable abscess. No tenderness or swelling below tongue ) Chest Chest inspection: Present symmetric chest wall rise Respiratory Respiratory exam: Present normal lung sounds bilaterally; Absent wheezes or stridor Cardiovascular Cardiovascular exam: Present regular rate and normal rhythm; Absent systolic murmur Extremities Exam Extremities exam: Present full ROM Neurological Exam Neurological exam: Present alert and oriented X3 Psychiatric Psychiatric exam: Present normal affect and normal mood Skin Skin exam: Present warm, dry and intact Medical Decision Making <AME Raymond Last Filed: 11/05/24 15:57> Medical Records Screening: Per USPSTF and CDC recommendations, given the prevalence of disease in our region, it is our hospital?s policy to screen for HIV and viral Hepatitis for all patients aged 18 and over and those with ongoing risk factors. Aram Inquiry Pt receiving controlled substance: No Vital Signs: 11/05/24 15:32 11/05/24 16:00 Temperature 97.8 F 97.8 F Temperature Source Oral Oral Pulse Rate 87 Pulse Rate [Radial] 87 Respiratory Rate 18 18 Blood Pressure 124/86 Blood Pressure [Right Arm] 124/86 Blood Pressure Mean [Right Arm] 98 Blood Pressure Source Automatic Cuff Blood Pressure Source [Right Arm] Automatic Cuff Blood Pressure Position Sitting Blood Pressure Position [Right Arm] Sitting 02 Sat by Pulse Oximetry 100 Oxygen Delivery Method Room Air Room Air Medical Decision Narrative: In summary patient is a 29-year-old who presents the emergency department for evaluation of dental pain. Patient is hemodynamically upon arrival, afebrile. Unremarkable exam. Differential diagnosis includes dental pain from caries, dental abscess no abscess noted on exam. Patient was offered dental balls or dental block. She states that she is unable to do the dental balls as it causes nausea. She declines a dental block at this time. She is requesting p.o. pain medication. Advised to follow-up with dentistry and return to ER if she has any evidence of abscess. <Ben Biswas MD - Last Filed: 11/05/24 17:33> Vital Signs: 11/05/24 15:32 11/05/24 16:00 Temperature 97.8 F 97.8 F Temperature Source Oral Oral Pulse Rate 87 Pulse Rate [Radial] 87 Respiratory Rate 18 18 Blood Pressure 124/86 Blood Pressure [Right Arm] 124/86 Blood Pressure Mean [Right Arm] 98 Blood Pressure Source Automatic Cuff Blood Pressure Source [Right Arm] Automatic Cuff Blood Pressure Position Sitting Blood Pressure Position [Right Arm] Sitting 02 Sat by Pulse Oximetry 100 Oxygen Delivery Method Room Air Room Air Medical Decision Narrative: In summary patient is a 29-year-old who presents the emergency department for evaluation of dental pain. Patient is hemodynamically upon arrival, afebrile. Unremarkable exam. Differential diagnosis includes dental pain from caries, dental abscess no abscess noted on exam. Patient was offered dental balls or dental block. She states that she is unable to do the dental balls as it causes nausea. She declines a dental block at this time. She is requesting p.o. pain medication. Advised to follow-up with dentistry and return to ER if she has any evidence of abscess. I was consulted by the JOVANNY, and we discussed the complexity of the problems being addressed. I approved the treatment and management plan for this patient's care in the Emergency Department, thus performing a substantive portion of the medical decision making. Ben Biswas MD Critical Care <AME Raymond - Last Filed: 11/05/24 15:57> Critical Care Time Critical Care Time: No
[2024-11-05 16:00] VITALS: BP 124/86; PULSE 87; RESP 18; TEMP 36.6; O2SAT 100
== END 2024-11-05 16:00 | disposition home or self-care (01) ==
PROVIDERS: Emergency Provider Emergency Medicine; PCP Family Medicine
DX: K02.9 Dental caries, unspecified (principal); K08.89 Other specified disorders of teeth and supporting structures; F17.210 Nicotine dependence, cigarettes, uncomplicated
CPT/HCPCS: 99282

== ENCOUNTER 2024-11-12 20:41 | Emergency (ER) | payer OTHER, SELFPAY ==
[2024-11-12 20:48] VITALS: BP 161/95; PULSE 86; RESP 18; TEMP 36.9; O2SAT 100; BMI 39.8
--- NOTE | 2024-11-12 21:11 | ED_ITS ---
<Statement entered by Hoda Henry MD - 11/13/24 00:17> I was consulted by the JOVANNY, and we discussed the complexity of problems being addressed. I approved the treatment and management plan for this patient's care in the emergency department, thus performing a substantive portion of the medical decision making. Hoda Henry MD Discharge Plan Disposition Patient Disposition: Home, Self-Care Condition: Good Prescriptions Prescriptions: New oxycodone 5 mg tablet 5 mg PO Q6H PRN (Reason: pain) Qty: 9 0RF No Action ibuprofen 800 mg tablet 800 mg PO Q8H Qty: 20 0RF amoxicillin-pot clavulanate 875-125 mg tablet 1 tab PO BID 10 Days Qty: 20 0RF aspirin 81 mg tablet,delayed release (DR/EC) See Rx Instructions .ROUTE .COMPLEX Qty: 30 0RF Dose Instruction: TAKE 1 TABLET BY MOUTH DAILY FOR HEART HEALTH Rx Instructions: TAKE 1 TABLET BY MOUTH DAILY FOR HEART HEALTH bisoprolol fumarate 5 mg tablet 5 mg PO DAILY Rx Instructions: TAKE 1 TABLET BY MOUTH ONCE DAILY FOR HYPERTENSION sulfamethoxazole-trimethoprim 800-160 mg tablet 1 tab PO BID 7 Days Qty: 14 0RF Referrals Follow up/Referrals: Gary Flanagan MD [Primary Care Provider] - See instructions Activity Restrictions/Add. Instructions Additional Instructions/Restrictions: Do not drive after taking pain medication. Return to the ED for worsening of condition. Keep her dentistry appointment for this coming Wednesday. Clinical Impressions Clinical Impression: Pain, dental Instructions Patient Instructions: DI for Chronic Pain -- Adult Print Language Print Language: [place] Discharge ED Provider: Hoda Henry General Adult HPI General Chief complaint: Dental/Oral Stated complaint: toothache Time Seen by Provider: 11/12/24 21:05 Mode of Arrival: Ambulatory Source of Information: Patient Limitations: No Limitations Description of Symptoms (Recalled from ER Triage Doc. by RN): Pt presents for evaluation of abscess to mouth. Pt has an appointment with the oral surgeon on wednesday. Pt states she took 2 tylenol and 2 ibuprofen 2 hours ago. History of Present Illness HPI narrative: Patient is a 29-year-old female PMHx poor dental health who presents to the ED with complaints of right upper dental pain. Patient is scheduled to have her upper teeth extracted this coming Wednesday. Related Data Home Medications ?Medication ?Instructions ?Recorded ?Confirmed bisoprolol fumarate 5 mg tablet 5 mg PO DAILY 07/18/24 10/31/24 Previous Rx's ?Medication ?Instructions ?Recorded sulfamethoxazole 800 1 tab PO BID 7 days #14 tabs 09/15/24 mg-trimethoprim 160 mg tablet amoxicillin 875 mg-potassium 1 tab PO BID 10 days #20 tabs 10/31/24 clavulanate 125 mg tablet ibuprofen 800 mg tablet 800 mg PO Q8H #20 tabs 10/31/24 aspirin 81 mg tablet,delayed See Rx Instructions .Route 11/10/24 release .COMPLEX #30 tabs oxycodone 5 mg tablet 5 mg PO Q6H PRN pain #9 tabs 11/12/24 Allergies Allergy/AdvReac Type Severity Reaction Status Date / Time ketorolac (From TORADOL) Allergy Mild Hives Verified 10/31/24 17:08 tramadol (TRAMADOL) Allergy Mild Hives Verified 10/31/24 17:08 diphenhydramine (From Allergy Unknown I-HIVES Verified 10/31/24 17:08 BENADRYL) [facility] Disclaimer: The information contained in this section may have been updated after the patient was seen, as this information can be updated by other users. Medical History Kidney stones Patient left without being seen Postoperative pain Otitis media Abdominal pain Foot callus Cellulitis Patient left without being seen Trichomonal vaginitis Postoperative abdominal pain Dysmenorrhea Menorrhagia Right lower quadrant pain Dysfunctional uterine bleeding Flank pain Palpitations SOB (shortness of breath) Concussion without loss of consciousness Microhematuria Acute right flank pain Degenerative joint disease (DJD) of lumbar spine Patient left without being seen Otitis externa Lumbar disc disease Tachycardia Back pain Dyspnea Chest pain Atypical chest pain Ovarian cyst Trichomonal cystitis Abdominal pain of unknown etiology Bilious vomiting Vomiting Closed fracture of tuft of distal phalanx of finger Pelvic pain UTI (urinary tract infection) Renal colic on left side Endometriosis Surgical History Hx of tonsillectomy History of cholecystectomy History of appendectomy H/O hysterectomy with oophorectomy [place] teeth extracted S/P appendectomy S/P hysterectomy Family History Mother Diabetes Hypertension Grandmother Cancer ovarian and breast Father Cancer Hypertension Diabetes Social History Smoking Status: Never smoker alcohol intake: never counseling provided: none substance use type: denies use current occupational status: employed and other Travel in the last 8 weeks: None household members: spouse housing: house current occupational exposures/hazards: No caffeine: Yes Have you lived/traveled outside US in past 30 days?: No Contact w/someone who lives/traveled outside US past 30 days?: No Exposure to someone with infectious disease in past 14 days?: No Do you have a fever (greater than 100.4 F or 38 C)?: No Have you tested positive for COVID-19: No Exposed to someone with COVID-19 in past 14 days?: No Do you have a sore throat?: No Do you have a cough?: No Do you have any weakness?: No Do you have any diarrhea?: No Are you experiencing any unusual bleeding?: No Do you have any muscle aches/pain?: No Do you have any abdominal pain?: No Are you experiencing loss of taste or smell?: No Other Medical History Have you received the Flu Vaccine for this season: No Have you received the Pneumonia Vaccine: No ROS Obtained: Yes Systems reviewed as appropriate & no additional complaints except as documented Physical Exam General General appearance: alert and in no apparent distress Head Head exam: atraumatic and normocephalic Eye Eye exam: Present normal appearance and PERRL ENT ENT exam: Present normal exam and other (poor dental health, multiple caries) Neck Neck exam: Present normal inspection Chest Chest inspection: Present normal inspection and symmetric chest wall rise; Absent tenderness Respiratory Respiratory exam: Present normal lung sounds bilaterally Cardiovascular Cardiovascular exam: Present regular rate Abdominal Exam Abdominal exam: Present soft and normal bowel sounds; Absent tenderness Extremities Exam Extremities exam: Present normal inspection and full ROM Back Exam Back exam: Present normal inspection and full ROM Neurological Exam Neurological exam: Present alert and oriented X3 Psychiatric Psychiatric exam: Present normal affect and normal mood Skin Skin exam: Present warm and dry Medical Decision Making Medical Records Screening: Per USPSTF and CDC recommendations, given the prevalence of disease in our region, it is our hospital?s policy to screen for HIV and viral Hepatitis for all patients aged 18 and over and those with ongoing risk factors. Aram Inquiry Pt receiving controlled substance: No Aram was queried for this patient: No Vital Signs: 11/12/24 20:48 Temperature 98.4 F Temperature Source Oral Pulse Rate [Right] 86 Respiratory Rate 18 Blood Pressure [Right Arm] 161/95 H Blood Pressure Mean [Right Arm] 117 Blood Pressure Source [Right Arm] Automatic Cuff Blood Pressure Position [Right Arm] Sitting 02 Sat by Pulse Oximetry 100 Oxygen Delivery Method Room Air Orders (Tests/Meds): ED MEDICATIONS Generic Name Dose Route Start Last Admin Trade Name Freq PRN Reason Stop Dose Admin Oxycodone HCl 5 mg 11/12/24 21:10 Oxycodone 5mg Immediate Release Tablet PO 12/12/24 21:09 Q4HP PRN Severe Pain (7-10) Medical Decision Narrative: In summary, patient is a 29-year-old female PMHx poor dental health who presents to the ED with complaints of right upper dental pain. Patient is scheduled to have her upper teeth extracted this coming Wednesday. She is already on amoxicillin, has been taking acetaminophen and ibuprofen [id number] for symptomatic relief however states the medication provides her minimal pain relief. Patient is compliant with her oral antibiotics. She has tried Orajel as well without relief. Patient requesting pain management only at today's visit. Upon initial exam, she is hemodynamically stable, no facial swelling, no obvious apical abscess on visual exam. Patient has tried tooth balls in the past and states they cause some nausea. Discussed with patient that we can give her 2 days of narcotics, advised her not to drive or operate heavy machinery. Advised her to keep her follow-up appointment this coming Wednesday. We discussed return precautions to the ED. Patient verbalized understanding. Critical Care Critical Care Time Critical Care Time: No
[2024-11-12] MEDS: OXYCODONE 5MG IMMEDIATE RELEASE TABLET 5 MG PO (21:21)
[2024-11-12 21:23] VITALS: BP 160/90; PULSE 88; RESP 20; TEMP 37.1; O2SAT 97
== END 2024-11-12 21:27 | disposition home or self-care (01) ==
PROVIDERS: Emergency Provider Student in an Organized Health Care Education/Training Program; PCP Family Medicine
DX: K08.89 Other specified disorders of teeth and supporting structures (principal)
CPT/HCPCS: 99283

== ENCOUNTER 2024-11-16 16:18 | Emergency (ER) | payer OTHER, SELFPAY ==
[2024-11-16 16:43] VITALS: BP 132/95; PULSE 73; RESP 18; TEMP 36.8; O2SAT 100; BMI 38.9
--- NOTE | 2024-11-16 17:12 | ED_ITS ---
Discharge Plan Disposition Patient Disposition: Home, Self-Care Prescriptions Prescriptions: No Action ibuprofen 800 mg tablet 800 mg PO Q8H Qty: 20 0RF amoxicillin-pot clavulanate 875-125 mg tablet 1 tab PO BID 10 Days Qty: 20 0RF aspirin 81 mg tablet,delayed release (DR/EC) See Rx Instructions .ROUTE .COMPLEX Qty: 30 0RF Dose Instruction: TAKE 1 TABLET BY MOUTH DAILY FOR HEART HEALTH Rx Instructions: TAKE 1 TABLET BY MOUTH DAILY FOR HEART HEALTH bisoprolol fumarate 5 mg tablet 5 mg PO DAILY Rx Instructions: TAKE 1 TABLET BY MOUTH ONCE DAILY FOR HYPERTENSION oxycodone 5 mg tablet 5 mg PO Q6H PRN (Reason: pain) Qty: 9 0RF Referrals Follow up/Referrals: Gary Flanagan MD [Primary Care Provider] - See instructions Clinical Impressions Clinical Impression: Pain, dental Print Language Print Language: Citizen Of [place] Discharge ED Provider: Ben Biswas General Adult HPI General Chief complaint: Dental/Oral Stated complaint: Tooth pain Time Seen by Provider: 11/16/24 16:49 Mode of Arrival: Ambulatory Source of Information: Patient Description of Symptoms (Recalled from ER Triage Doc. by RN): Pt presents for evaluation of abscessed tooth to the right side of her mouth. Pt states pain is radiating from her jaw down into her neck. Pt states she is having difficulty eating. Pt was supposed to have an appointment on 11-15-24 but the oral surgeon had to cancel, and is now rescheduled for tomorrow. History of Present Illness HPI narrative: Please note that above description of symptoms, in this electronic medical record under categorization of recalled from ER triage doctor by RN are reflective of an initial nursing assessment, however, is not reflective of my full history and physical exam that was personally taken and clarified. Consequentially, this preceding description of symptoms, which may include the patient's categorized chief complaint in the EMR, do not reflect my personal clinical impression, and the ultimate description of history of present illness and patient stated complaints should be deferred to this section of the note. Unless stated otherwise or congruent with this section of the note, additional signs, symptoms, or incongruence should be interpreted as inaccurate with my clinical impression. Related Data Home Medications ?Medication ?Instructions ?Recorded ?Confirmed bisoprolol fumarate 5 mg tablet 5 mg PO DAILY 07/18/24 11/16/24 Previous Rx's ?Medication ?Instructions ?Recorded amoxicillin 875 mg-potassium 1 tab PO BID 10 days #20 tabs 10/31/24 clavulanate 125 mg tablet ibuprofen 800 mg tablet 800 mg PO Q8H #20 tabs 10/31/24 aspirin 81 mg tablet,delayed See Rx Instructions .Route 11/10/24 release .COMPLEX #30 tabs oxycodone 5 mg tablet 5 mg PO Q6H PRN pain #9 tabs 11/12/24 Allergies Allergy/AdvReac Type Severity Reaction Status Date / Time ketorolac (From TORADOL) Allergy Mild Hives Verified 11/16/24 16:47 tramadol (TRAMADOL) Allergy Mild Hives Verified 11/16/24 16:47 diphenhydramine (From Allergy Unknown I-HIVES Verified 11/16/24 16:47 BENADRYL) [facility] Disclaimer: The information contained in this section may have been updated after the patient was seen, as this information can be updated by other users. Medical History Kidney stones Patient left without being seen Postoperative pain Otitis media Abdominal pain Foot callus Cellulitis Patient left without being seen Trichomonal vaginitis Postoperative abdominal pain Dysmenorrhea Menorrhagia Right lower quadrant pain Dysfunctional uterine bleeding Flank pain Palpitations SOB (shortness of breath) Concussion without loss of consciousness Microhematuria Acute right flank pain Degenerative joint disease (DJD) of lumbar spine Patient left without being seen Otitis externa Lumbar disc disease Tachycardia Back pain Dyspnea Chest pain Atypical chest pain Ovarian cyst Trichomonal cystitis Abdominal pain of unknown etiology Bilious vomiting Vomiting Closed fracture of tuft of distal phalanx of finger Pelvic pain UTI (urinary tract infection) Renal colic on left side Endometriosis Surgical History Hx of tonsillectomy History of cholecystectomy History of appendectomy H/O hysterectomy with oophorectomy [place] teeth extracted S/P appendectomy S/P hysterectomy Family History Mother Diabetes Hypertension Grandmother Cancer ovarian and breast Father Cancer Hypertension Diabetes Social History Smoking Status: Current every day smoker tobacco type: cigarettes packs per day: 1 alcohol intake: never counseling provided: none substance use type: denies use current occupational status: employed and other Travel in the last 8 weeks: None household members: spouse housing: house current occupational exposures/hazards: No caffeine: Yes Have you lived/traveled outside US in past 30 days?: No Contact w/someone who lives/traveled outside US past 30 days?: No Exposure to someone with infectious disease in past 14 days?: No Do you have a fever (greater than 100.4 F or 38 C)?: No Have you tested positive for COVID-19: No Exposed to someone with COVID-19 in past 14 days?: No Do you have a sore throat?: No Do you have a cough?: No Do you have any weakness?: No Do you have any diarrhea?: No Are you experiencing any unusual bleeding?: No Do you have any muscle aches/pain?: No Do you have any abdominal pain?: No Are you experiencing loss of taste or smell?: No Other Medical History Have you received the Flu Vaccine for this season: No Have you received the Pneumonia Vaccine: No ROS Obtained: Yes All systems reviewed & no additional complaints except as documented Physical Exam General General appearance: alert Head Head exam: atraumatic and normocephalic Eye Eye exam: Present normal appearance, PERRL and EOMI Neck Neck exam: Present normal inspection, full ROM and trachea midline Respiratory Respiratory exam: Absent respiratory distress, wheezes, stridor, accessory muscle use or prolonged expiratory phase Cardiovascular Cardiovascular exam: Present other (Pulses equal symmetric in upper and lower extremities) Abdominal Exam Abdominal exam: Present soft; Absent distention, tenderness or pulsatile mass Extremities Exam Extremities exam: Absent edema Neurological Exam Neurological exam: Present alert, oriented X3 and CN II-XII intact; Absent motor sensory deficit Skin Skin exam: Present warm and dry; Absent diaphoresis or erythema Medical Decision Making Medical Records Medical records reviewed: Yes I reviewed the patient's medical records. Screening: Per USPSTF and CDC recommendations, given the prevalence of disease in our region, it is our hospital?s policy to screen for HIV and viral Hepatitis for all patients aged 18 and over and those with ongoing risk factors. Aram Inquiry Pt receiving controlled substance: No Aram was queried for this patient: No Vital Signs: 11/16/24 16:43 11/16/24 17:24 Temperature 98.3 F 98 F Temperature Source Oral Pulse Rate 77 Pulse Rate [Right] 73 Respiratory Rate 18 18 Blood Pressure 139/91 H Blood Pressure [Right Arm] 132/95 H Blood Pressure Mean [Right Arm] 107 Blood Pressure Source [Right Arm] Automatic Cuff Blood Pressure Position [Right Arm] Sitting 02 Sat by Pulse Oximetry 100 Oxygen Delivery Method Room Air Orders (Tests/Meds): ED MEDICATIONS Discontinued Medications Generic Name Dose Route Start Last Admin Trade Name [place] PRN Reason Stop Dose Admin Hydrocodone Bitart/Acetaminophen 1 tab 11/16/24 17:10 11/16/24 17:13 Hydrocodone/Apap 5/325 Mg Tablet PO 11/16/24 17:11 1 tab ONCE ONE Administration Medical Decision Narrative: 29-year-old female presenting with dental pain. Patient states that she has appointment to have full dental extraction tomorrow, 11/17. States that she is having severe pain, unable to tolerate. States that she has been trying Peridex and lidocaine as well as Orajel at home, Tylenol and Motrin orally. On physical exam, patient has chronic dental caries, no discrete or discernible fluid collection or abscess. No lymphadenopathy, no trismus, no red flag signs of the head or neck. States that has been getting worse, came in for bridge therapy until tomorrow, 11/17. Explicitly asked for opiates, I told her I would not be s ending her home with any prescription opiates and that we would have directly observed therapy here with one 5 mg Whick. Patient agreeable to this. Patient explicitly declined nerve block stating that she is terrified of needles. Ask for oral opiate therapy numerous times, this was declined by me for numerous prescriptions. Was explained that patient would not be receiving any more opiates from myself in the future for any more dental complaints and patient is agreeable. Discharged home in stable condition. Technology Professional disclaimer Much of this encounter note is an electronic petal cutter spoken language to printed text. Electronic petal cutter of the spoken language may permit errors. Although I have reviewed the note, some errors may still exist. Critical Care Critical Care Time Critical Care Time: No
[2024-11-16] MEDS: HYDROCODONE/APAP 5/325 MG TABLET 1 TAB PO (17:13)
[2024-11-16 17:24] VITALS: BP 139/91; PULSE 77; RESP 18; TEMP 36.6; O2SAT 99
== END 2024-11-16 17:25 | disposition home or self-care (01) ==
PROVIDERS: Emergency Provider Emergency Medicine; PCP Family Medicine
DX: K08.9 Disorder of teeth and supporting structures, unspecified (principal)
CPT/HCPCS: 99283

== ENCOUNTER 2024-12-03 12:31 | Emergency (ER) | payer OTHER, SELFPAY ==
[2024-12-03 12:34] VITALS: BP 140/91; PULSE 82; RESP 18; TEMP 36.8; O2SAT 100; BMI 40.0
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
[2024-12-03 13:45] VITALS: BP 131/88; PULSE 87; RESP 18; TEMP 36.6; O2SAT 97
== END 2024-12-03 13:50 | disposition home or self-care (01) ==
LOC: ER 12:39
PROVIDERS: Emergency Provider Student in an Organized Health Care Education/Training Program; PCP Family Medicine
DX: K08.89 Other specified disorders of teeth and supporting structures (principal); R63.8 Other symptoms and signs concerning food and fluid intake
CPT/HCPCS: 99281

== ENCOUNTER 2024-12-14 18:12 | Emergency (ER) | payer OTHER, SELFPAY ==
[2024-12-14 18:19] VITALS: BP 134/79; PULSE 95; RESP 18; TEMP 36.8; O2SAT 100; BMI 40.4
--- NOTE | 2024-12-14 18:43 | PC.NURSE ---
Rivka Serrato APRN at bedside
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
[2024-12-14 18:50] VITALS: BP 115/74
[2024-12-14] MEDS: IBUPROFEN 600 MG TABLET PO (18:51)
[2024-12-14 18:57] VITALS: BP 115/74; PULSE 79; RESP 16; TEMP 36.8; O2SAT 99
== END 2024-12-14 18:58 | disposition home or self-care (01) ==
PROVIDERS: Emergency Provider Student in an Organized Health Care Education/Training Program; PCP Family Medicine
DX: K08.89 Other specified disorders of teeth and supporting structures (principal); F17.210 Nicotine dependence, cigarettes, uncomplicated
CPT/HCPCS: 99281

== ENCOUNTER 2024-12-15 10:50 | Emergency (ER) | payer OTHER, SELFPAY ==
[2024-12-15 10:58] VITALS: BP 129/89; PULSE 99; RESP 18; TEMP 36.9; O2SAT 100; BMI 40.4
[2024-12-15 11:54] VITALS: BP 121/87; PULSE 81; RESP 17; TEMP 36.8; O2SAT 97
[2024-12-15] MEDS: LIDOCAINE 2% VISCOUS SOL 15ML UDC 15 ML PO (11:57)
[2024-12-15] MEDS: TETRACAINE/BENZOCAINE/BUTAMBEN 56 GM SPRAY TP (11:57)
[2024-12-15] MEDS: ONDANSETRON 4MG ODT 4 MG SL (12:00)
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
== END 2024-12-15 12:04 | disposition home or self-care (01) ==
PROVIDERS: Emergency Provider Emergency Medicine; PCP Family Medicine
DX: K08.89 Other specified disorders of teeth and supporting structures (principal); K02.9 Dental caries, unspecified; Z76.5 Malingerer [conscious simulation]; R11.10 Vomiting, unspecified; R51.9 Headache, unspecified; M47.816 Spondylosis without myelopathy or radiculopathy, lumbar region; F17.210 Nicotine dependence, cigarettes, uncomplicated; E66.9 Obesity, unspecified; Z68.41 Body mass index [BMI] 40.0-44.9, adult; Z88.5 Allergy status to narcotic agent; Z88.8 Allergy status to other drugs, medicaments and biological substances; Z90.49 Acquired absence of other specified parts of digestive tract; Z90.79 Acquired absence of other genital organ(s); Z83.3 Family history of diabetes mellitus; Z80.9 Family history of malignant neoplasm, unspecified; Z82.49 Family history of ischemic heart disease and other diseases of the circulatory system
CPT/HCPCS: 99283; Q0162

== ENCOUNTER 2024-12-22 01:59 | Emergency (ER) | payer OTHER, SELFPAY ==
[2024-12-22 02:10] VITALS: BP 130/87; PULSE 80; RESP 16; TEMP 36.6; O2SAT 99; BMI 40.4
--- NOTE | 2024-12-22 02:10 | ED_ITS ---
Discharge Plan Disposition Patient Disposition: Home, Self-Care Prescriptions Prescriptions: No Action ibuprofen 800 mg tablet 800 mg PO Q8H Qty: 20 0RF omeprazole 40 mg capsule,delayed release(DR/EC) 40 mg PO DAILY Qty: 30 2RF aspirin 81 mg tablet,delayed release (DR/EC) See Rx Instructions .ROUTE .COMPLEX Qty: 30 0RF Dose Instruction: TAKE 1 TABLET BY MOUTH ONCE DAILY FOR HEART HEALTH Rx Instructions: TAKE 1 TABLET BY MOUTH ONCE DAILY FOR HEART HEALTH bisoprolol fumarate 5 mg tablet 5 mg PO DAILY Rx Instructions: TAKE 1 TABLET BY MOUTH ONCE DAILY FOR HYPERTENSION ibuprofen 800 mg tablet 800 mg PO Q8H PRN (Reason: pain) Qty: 12 0RF ondansetron 4 mg tablet,disintegrating 4 mg PO Q8H PRN (Reason: nausea and vomiting) 4 Days Qty: 12 0RF Referrals Follow up/Referrals: Gary Flanagan MD [Primary Care Provider] - See instructions Activity Restrictions/Add. Instructions Additional Instructions/Restrictions: Please follow-up with your primary care provider. Please return to the emergency department if you develop any new or worsening symptoms or become concerned for your health. Clinical Impressions Clinical Impression: Chronic dental pain Print Language Print Language: Sierra Leonean Discharge ED Provider: Camacho [facility] Adult HPI General Stated complaint: had tooth pulled, pain in face Time Seen by Provider: 12/22/24 02:00 History of Present Illness HPI narrative: 29-year-old female with history of chronic dental pain presents for dental pain. She reports that she had a tooth pulled yesterday at 11 PM and woke up tonight with worsening pain. She has been taking Tylenol and ibuprofen at home without improvement. She is also on clindamycin. Denies any fever. Related Data Home Medications ?Medication ?Instructions ?Recorded ?Confirmed bisoprolol fumarate 5 mg tablet 5 mg PO DAILY 07/18/24 12/03/24 Previous Rx's ?Medication ?Instructions ?Recorded ibuprofen 800 mg tablet 800 mg PO Q8H #20 tabs 10/31/24 omeprazole 40 mg capsule,delayed 40 mg PO DAILY #30 caps 11/23/24 release aspirin 81 mg tablet,delayed See Rx Instructions .Route 12/12/24 release .COMPLEX #30 tabs ibuprofen 800 mg tablet 800 mg PO Q8H PRN pain #12 tabs 04/04/25 ondansetron 4 mg disintegrating 4 mg PO Q8H PRN nausea and 12/15/24 tablet vomiting 4 days #12 tabs Allergies Allergy/AdvReac Type Severity Reaction Status Date / Time ketorolac (From TORADOL) Allergy Mild Hives Verified 12/03/24 12:39 tramadol (TRAMADOL) Allergy Mild Hives Verified 12/03/24 12:39 diphenhydramine (From Allergy Unknown I-HIVES Verified 12/03/24 12:39 BENADRYL) [facility] Disclaimer: The information contained in this section may have been updated after the patient was seen, as this information can be updated by other users. Medical History Thyromegaly Chronic GERD Globus sensation Kidney stones Patient left without being seen Postoperative pain Otitis media Abdominal pain Foot callus Cellulitis Patient left without being seen Trichomonal vaginitis Postoperative abdominal pain Dysmenorrhea Menorrhagia Right lower quadrant pain Dysfunctional uterine bleeding Flank pain Palpitations SOB (shortness of breath) Concussion without loss of consciousness Microhematuria Acute right flank pain Degenerative joint disease (DJD) of lumbar spine Patient left without being seen Otitis externa Lumbar disc disease Tachycardia Back pain Dyspnea Chest pain Atypical chest pain Ovarian cyst Trichomonal cystitis Abdominal pain of unknown etiology Bilious vomiting Vomiting Closed fracture of tuft of distal phalanx of finger Pelvic pain UTI (urinary tract infection) Renal colic on left side Endometriosis Surgical History Hx of tonsillectomy History of cholecystectomy History of appendectomy H/O hysterectomy with oophorectomy [place] teeth extracted S/P appendectomy S/P hysterectomy Family History Mother Diabetes Hypertension Grandmother Cancer Father Cancer Hypertension Diabetes Social History Smoking Status: Current every day smoker tobacco type: cigarettes packs per day: 1 alcohol intake: never counseling provided: none substance use type: denies use current occupational status: employed and other Travel in the last 8 weeks: None household members: spouse housing: house current occupational exposures/hazards: No caffeine: Yes Have you lived/traveled outside US in past 30 days?: No Contact w/someone who lives/traveled outside US past 30 days?: No Exposure to someone with infectious disease in past 14 days?: No Do you have a fever (greater than 100.4 F or 38 C)?: No Have you tested positive for COVID-19: No Exposed to someone with COVID-19 in past 14 days?: No Do you have a sore throat?: No Do you have a cough?: No Do you have any weakness?: No Do you have any diarrhea?: No Are you experiencing any unusual bleeding?: No Do you have any muscle aches/pain?: No Do you have any abdominal pain?: No Are you experiencing loss of taste or smell?: No Other Medical History Have you received the Flu Vaccine for this season: No Have you received the Pneumonia Vaccine: No ROS Obtained: Yes All systems reviewed & no additional complaints except as documented Physical Exam General General appearance: alert and in no apparent distress Head Head exam: atraumatic, normocephalic and other (No obvious erythema, fluctuant lesion or infection noted) Eye Eye exam: Present normal appearance, PERRL and EOMI ENT ENT exam: Present normal oropharynx and normal external ear exam Neck Neck exam: Present normal inspection and full ROM Chest Chest inspection: Present normal inspection and symmetric chest wall rise; Absent tenderness Respiratory Respiratory exam: Present normal lung sounds bilaterally; Absent respiratory distress Cardiovascular Cardiovascular exam: Present regular rate and normal rhythm Abdominal Exam Abdominal exam: Present soft; Absent distention, tenderness or guarding Extremities Exam Extremities exam: Present normal inspection; Absent edema or joint swelling Back Exam Back exam: Present normal inspection; Absent tenderness Neurological Exam Neurological exam: Present alert and oriented X3; Absent motor sensory deficit Psychiatric Psychiatric exam: Present normal affect and normal mood Skin Skin exam: Present warm, dry and normal color Lymphatic Lymphatic Findings: no adenopathy Medical Decision Making Medical Records Medical records reviewed: Yes I reviewed the patient's medical records. Screening: Per USPSTF and CDC recommendations, given the prevalence of disease in our region, it is our hospital?s policy to screen for HIV and viral Hepatitis for all patients aged 18 and over and those with ongoing risk factors. Aram Inquiry Pt receiving controlled substance: No Aram was queried for this patient: No Lab Data Lab results reviewed: Yes I reviewed the patient's lab results. Orders (Tests/Meds): ED MEDICATIONS Generic Name Dose Route Start Last Admin Trade Name Freq PRN Reason Stop Dose Admin Lidocaine HCl 15 ml 12/22/24 02:08 Lidocaine 2% Viscous Daisha 15ml Udc PO 12/22/24 02:09 ONCE ONE Medical Decision Narrative: 29-year-old female with chronic dental pain presents for dental pain. History was obtained via interactive discussion with patient chart. On arrival, patient is [afebrile, hemodynamically stable, satting appropriately, alert, oriented x4, GCS 15], moving all extremities spontaneously. Full physical exam performed and significant for no evidence of intraoral infection, submandibular swelling or other signs of infection Differential includes but is not limited to odontogenic infection, chronic dental pain, malingering. Patient was given dental balls for pain and discharged in stable condition with return precautions. Procedures Risk/Benefits of Procedure(s) Were Explained: Yes Critical Care Critical Care Time Critical Care Time: No
[2024-12-22] MEDS: LIDOCAINE 2% VISCOUS SOL 15ML UDC 15 ML PO (02:14)
[2024-12-22 02:19] VITALS: BP 130/87; PULSE 67; RESP 16; TEMP 36.6; O2SAT 98
== END 2024-12-22 02:21 | disposition home or self-care (01) ==
PROVIDERS: Emergency Provider Emergency Medicine; PCP Family Medicine
DX: K08.89 Other specified disorders of teeth and supporting structures (principal); G89.29 Other chronic pain
CPT/HCPCS: 99283

== ENCOUNTER 2024-12-30 20:39 | Emergency (ER) | payer OTHER, SELFPAY ==
[2024-12-30 20:57] VITALS: BP 122/87; PULSE 84; RESP 20; TEMP 36.8; O2SAT 97; BMI 40.4
--- NOTE | 2024-12-30 21:10 | HMH.EDGENADL ---
Discharge Plan Disposition Patient Disposition: Home, Self-Care Prescriptions Prescriptions: New ibuprofen 800 mg tablet 800 mg PO Q8H PRN (Reason: pain) Qty: 20 0RF No Action ibuprofen 800 mg tablet 800 mg PO Q8H Qty: 20 0RF omeprazole 40 mg capsule,delayed release(DR/EC) 40 mg PO DAILY Qty: 30 2RF aspirin 81 mg tablet,delayed release (DR/EC) See Rx Instructions .ROUTE .COMPLEX Qty: 30 0RF Dose Instruction: TAKE 1 TABLET BY MOUTH ONCE DAILY FOR HEART HEALTH Rx Instructions: TAKE 1 TABLET BY MOUTH ONCE DAILY FOR HEART HEALTH bisoprolol fumarate 5 mg tablet 5 mg PO DAILY Rx Instructions: TAKE 1 TABLET BY MOUTH ONCE DAILY FOR HYPERTENSION ibuprofen 800 mg tablet 800 mg PO Q8H PRN (Reason: pain) Qty: 12 0RF ondansetron 4 mg tablet,disintegrating 4 mg PO Q8H PRN (Reason: nausea and vomiting) 4 Days Qty: 12 0RF Referrals Follow up/Referrals: Gary Flanagan MD [Primary Care Provider] - See instructions Activity Restrictions/Add. Instructions Additional Instructions/Restrictions: May use ice to area as well as the dental balls for pain. Take ibuprofen and Tylenol as needed. Please contact your surgeon for further treatment and management. Please continue your antibiotics as directed. Clinical Impressions Clinical Impression: Pain, dental Instructions Patient Instructions: DI for Acute Pain -- Adult Print Language Print Language: Armenian Discharge ED Provider: Tommie Masters General Adult HPI <Callie Posadas (ED), [employer] - Last Filed: 12/30/24 22:30> General Chief complaint: PAIN Stated complaint: right jaw pain, headache Time Seen by Provider: 12/30/24 20:47 Mode of Arrival: Ambulatory Source of Information: Patient Description of Symptoms (Recalled from ER Triage Doc. by RN): Pt states she is scheduled for tooth extraction on 01/16 she is out of pain medications that oral surgeon prescribed. Pain in right side of jaw History of Present Illness HPI narrative: 29-year-old female presents to the ED today for dental pain in her right upper side of her mouth. She is scheduled for an extraction of her teeth on January 16. She shows me the medications she is on and she is currently taking clindamycin. She complains of headache from her jaw pain. Patient says that her jaw feels like it locks at times. No nausea, vomiting or diarrhea. Patient given meds by the oral surgeon to take for this. Related Data Home Medications ?Medication ?Instructions ?Recorded ?Confirmed bisoprolol fumarate 5 mg tablet 5 mg PO DAILY 07/18/24 12/03/24 Previous Rx's ?Medication ?Instructions ?Recorded ibuprofen 800 mg tablet 800 mg PO Q8H #20 tabs 10/31/24 omeprazole 40 mg capsule,delayed 40 mg PO DAILY #30 caps 11/23/24 release aspirin 81 mg tablet,delayed See Rx Instructions .Route 12/12/24 release .COMPLEX #30 tabs ibuprofen 800 mg tablet 800 mg PO Q8H PRN pain #12 tabs 12/15/24 ondansetron 4 mg disintegrating 4 mg PO Q8H PRN nausea and 12/15/24 tablet vomiting 4 days #12 tabs ibuprofen 800 mg tablet 800 mg PO Q8H PRN pain #20 tabs 12/30/24 Allergies Allergy/AdvReac Type Severity Reaction Status Date / Time ketorolac (From TORADOL) Allergy Mild Hives Verified 12/03/24 12:39 tramadol (TRAMADOL) Allergy Mild Hives Verified 12/03/24 12:39 diphenhydramine (From Allergy Unknown I-HIVES Verified 12/03/24 12:39 BENADRYL) [facility] <Callie Posadas (ED), [employer] - Last Filed: 12/30/24 22:30> [facility] Disclaimer: The information contained in this section may have been updated after the patient was seen, as this information can be updated by other users. Medical History Thyromegaly Chronic GERD Globus sensation Kidney stones Patient left without being seen Postoperative pain Otitis media Abdominal pain Foot callus Cellulitis Patient left without being seen Trichomonal vaginitis Postoperative abdominal pain Dysmenorrhea Menorrhagia Right lower quadrant pain Dysfunctional uterine bleeding Flank pain Palpitations SOB (shortness of breath) Concussion without loss of consciousness Microhematuria Acute right flank pain Degenerative joint disease (DJD) of lumbar spine Patient left without being seen Otitis externa Lumbar disc disease Tachycardia Back pain Dyspnea Chest pain Atypical chest pain Ovarian cyst Trichomonal cystitis Abdominal pain of unknown etiology Bilious vomiting Vomiting Closed fracture of tuft of distal phalanx of finger Pelvic pain UTI (urinary tract infection) Renal colic on left side Endometriosis Surgical History Hx of tonsillectomy History of cholecystectomy History of appendectomy H/O hysterectomy with oophorectomy [place] teeth extracted S/P appendectomy S/P hysterectomy Family History Mother Diabetes Hypertension Grandmother Cancer Father Cancer Hypertension Diabetes Social History Smoking Status: Current every day smoker tobacco type: cigarettes packs per day: 1 alcohol intake: never counseling provided: none substance use type: denies use current occupational status: employed and other Travel in the last 8 weeks: None household members: spouse housing: house current occupational exposures/hazards: No caffeine: Yes Have you lived/traveled outside US in past 30 days?: No Contact w/someone who lives/traveled outside US past 30 days?: No Exposure to someone with infectious disease in past 14 days?: No Do you have a fever (greater than 100.4 F or 38 C)?: No Have you tested positive for COVID-19: No Exposed to someone with COVID-19 in past 14 days?: No Do you have a sore throat?: No Do you have a cough?: No Do you have any weakness?: No Do you have any diarrhea?: No Are you experiencing any unusual bleeding?: No Do you have any muscle aches/pain?: Yes Do you have any abdominal pain?: No Are you experiencing loss of taste or smell?: No Other Medical History Have you received the Flu Vaccine for this season: No Have you received the Pneumonia Vaccine: No <Callie Posadas (ED), [employer] - Last Filed: 12/30/24 22:30> ROS Obtained: Yes Systems reviewed as appropriate & no additional complaints except as documented Constitutional Constitutional: Reports as per HPI Physical Exam <Callie Posadas (ED), [employer] - Last Filed: 12/30/24 22:30> General General appearance: alert Head Head exam: atraumatic and normocephalic Eye Eye exam: Present PERRL ENT ENT exam: Present other (Missing teeth, I personally do not see anything that would cause pain, very subjective) Neck Neck exam: Present full ROM and trachea midline Respiratory Respiratory exam: Present normal lung sounds bilaterally Cardiovascular Cardiovascular exam: Present regular rate and normal rhythm Neurological Exam Neurological exam: Present alert and oriented X3 Skin Skin exam: Present warm and dry Medical Decision Making <Callie Posadas (ED), [employer] - Last Filed: 12/30/24 22:30> Medical Records Screening: Per USPSTF and CDC recommendations, given the prevalence of disease in our region, it is our hospital?s policy to screen for HIV and viral Hepatitis for all patients aged 18 and over and those with ongoing risk factors. Aram Inquiry Pt receiving controlled substance: No Aram was queried for this patient: No Vital Signs: 12/30/24 20:57 12/30/24 21:54 Temperature 98.2 F 98.2 F Temperature Source Oral Oral Pulse Rate 80 Pulse Rate [Right Brachial] 84 Respiratory Rate 20 20 Blood Pressure 121/86 Blood Pressure [Right Arm] 122/87 Blood Pressure Mean [Right Arm] 98 Blood Pressure Source [Right Arm] Automatic Cuff Blood Pressure Position [Right Arm] Sitting 02 Sat by Pulse Oximetry 97 Oxygen Delivery Method Room Air Room Air Orders (Tests/Meds): ED MEDICATIONS Discontinued Medications Generic Name Dose Route Start Last Admin Trade Name Freq PRN Reason Stop Dose Admin Acetaminophen 1,000 mg 12/30/24 21:19 12/30/24 21:32 Acetaminophen 500mg Tab PO 12/30/24 21:20 1,000 mg ONCE ONE Administration Benzocaine/Butamben/Tetracaine HCl 1 gm 12/30/24 21:26 12/30/24 21:31 Tetracaine/Benzocaine/Butamben 56 Gm Clark TP 01/29/25 21:25 1 gm NEEDED PRN Administration (COIL WINDER USE ONLY) Pain per Pt Lidocaine HCl 15 ml 12/30/24 21:17 12/30/24 21:29 Lidocaine 2% Viscous Daisha 15ml Udc PO 12/30/24 21:18 15 ml ONCE ONE Administration Medical Decision Narrative: Insert review patient is a 29-year-old female presenting to the emergency department for evaluation of right upper jaw pain from her dental pain. Patient is hemodynamically stable and nontoxic-appearing upon arrival, afebrile. Differential diagnosis includes dental abscess, dental pain among others. Considered labs and imaging but due to how patient appears in her normal vital signs I chose not to do any blood work or imaging. I have no concern for abscess. She has been on antibiotics for days already from the oral surgeon. She has no drainage from her mouth anywhere. I see no redness. I did provide dental balls to the area. She will go home with these to help with pain. She is stable and will contact her oral surgeon on Wednesday. She will also continue her antibiotics. <Tommie Masters MD - Last Filed: 12/30/24 23:19> Vital Signs: 12/30/24 20:57 12/30/24 21:54 Temperature 98.2 F 98.2 F Temperature Source Oral Oral Pulse Rate 80 Pulse Rate [Right Brachial] 84 Respiratory Rate 20 20 Blood Pressure 121/86 Blood Pressure [Right Arm] 122/87 Blood Pressure Mean [Right Arm] 98 Blood Pressure Source [Right Arm] Automatic Cuff Blood Pressure Position [Right Arm] Sitting 02 Sat by Pulse Oximetry 97 Oxygen Delivery Method Room Air Room Air Orders (Tests/Meds): ED MEDICATIONS Discontinued Medications Generic Name Dose Route Start Last Admin Trade Name Freq PRN Reason Stop Dose Admin Acetaminophen 1,000 mg 12/30/24 21:19 12/30/24 21:32 Acetaminophen 500mg Tab PO 12/30/24 21:20 1,000 mg ONCE ONE Administration Benzocaine/Butamben/Tetracaine HCl 1 gm 12/30/24 21:26 12/30/24 21:31 Tetracaine/Benzocaine/Butamben 56 Gm Clark TP 01/29/25 21:25 1 gm NEEDED PRN Administration (COIL WINDER USE ONLY) Pain per Pt Lidocaine HCl 15 ml 12/30/24 21:17 12/30/24 21:29 Lidocaine 2% Viscous Daisha 15ml Udc PO 12/30/24 21:18 15 ml ONCE ONE Administration Medical Decision Narrative: Insert review patient is a 29-year-old female presenting to the emergency department for evaluation of right upper jaw pain from her dental pain. Patient is hemodynamically stable and nontoxic-appearing upon arrival, afebrile. Differential diagnosis includes dental abscess, dental pain among others. Considered labs and imaging but due to how patient appears in her normal vital signs I chose not to do any blood work or imaging. I have no concern for abscess. She has been on antibiotics for days already from the oral surgeon. She has no drainage from her mouth anywhere. I see no redness. I did provide dental balls to the area. She will go home with these to help with pain. She is stable and will contact her oral surgeon on Wednesday. She will also continue her antibiotics. I was consulted by the JOVANNY, and we discussed the complexity of the problems being addressed. I approved the treatment and management plan for this patient's care in the emergency department, thus performing a substantive portion of the medical decision making. Tommie Masters MD Critical Care <Callie Posadas (ED), [employer] - Last Filed: 12/30/24 22:30> Critical Care Time Critical Care Time: No
[2024-12-30] MEDS: LIDOCAINE 2% VISCOUS SOL 15ML UDC 15 ML PO (21:29)
[2024-12-30] MEDS: TETRACAINE/BENZOCAINE/BUTAMBEN 56 GM SPRAY TP (21:31)
[2024-12-30] MEDS: ACETAMINOPHEN 500MG TAB 1000 MG PO (21:32)
[2024-12-30 21:54] VITALS: BP 121/86; PULSE 80; RESP 20; TEMP 36.8; O2SAT 96
== END 2024-12-30 21:57 | disposition home or self-care (01) ==
PROVIDERS: Emergency Provider Emergency Medicine; PCP Family Medicine
DX: R68.84 Jaw pain (principal); R51.9 Headache, unspecified
CPT/HCPCS: 99283

== ENCOUNTER 2025-01-09 10:48 | Emergency (ER) | payer OTHER, SELFPAY ==
[2025-01-09 10:57] VITALS: BP 144/99; PULSE 98; RESP 20; TEMP 36.7; O2SAT 100; BMI 40.4
--- NOTE | 2025-01-09 11:18 | ED_ITS ---
Discharge Plan Disposition Patient Disposition: Home, Self-Care Condition: Good Prescriptions Prescriptions: New chlorhexidine gluconate 2 % liquid 1 applic topical DAILY Qty: 118 0RF Rx Instructions: Cleanse affected area daily. clindamycin phosphate 1 % gel, once daily 1 applic topical DAILY Qty: 75 0RF Rx Instructions: Apply to affected area daily. sulfamethoxazole-trimethoprim [Bactrim DS] 800-160 mg tablet 1 tab PO BID 7 Days Qty: 14 0RF No Action ibuprofen 800 mg tablet 800 mg PO Q8H Qty: 20 0RF omeprazole 40 mg capsule,delayed release(DR/EC) 40 mg PO DAILY Qty: 30 2RF aspirin 81 mg tablet,delayed release (DR/EC) See Rx Instructions .ROUTE .COMPLEX Qty: 30 0RF Dose Instruction: TAKE 1 TABLET BY MOUTH ONCE DAILY FOR HEART HEALTH Rx Instructions: TAKE 1 TABLET BY MOUTH ONCE DAILY FOR HEART HEALTH bisoprolol fumarate 5 mg tablet 5 mg PO DAILY Rx Instructions: TAKE 1 TABLET BY MOUTH ONCE DAILY FOR HYPERTENSION ibuprofen 800 mg tablet 800 mg PO Q8H PRN (Reason: pain) Qty: 12 0RF ondansetron 4 mg tablet,disintegrating 4 mg PO Q8H PRN (Reason: nausea and vomiting) 4 Days Qty: 12 0RF ibuprofen 800 mg tablet 800 mg PO Q8H PRN (Reason: pain) Qty: 20 0RF Referrals Follow up/Referrals: Davin Gibbs MD [Staff Physician] - See instructions Gary Flanagan MD [Primary Care Provider] - See instructions Nick Durán MD [Staff Physician] - See instructions Activity Restrictions/Add. Instructions Additional Instructions/Restrictions: You were evaluated in the emergency department today. 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 For the recurrent lesions that you get under your breasts and in your underarms, use the topical soap and antibiotic gel. Follow-up with general surgery for evaluation of this. I also recommend close follow-up with your primary care provider. Take Tylenol and ibuprofen as needed for pain. Return to the emergency department for new or worsening symptoms. Clinical Impressions Clinical Impression: Insect bite of leg, left, Hidradenitis suppurativa Instructions Patient Instructions: DI for Spider Bites Print Language Print Language: Irish Discharge ED Provider: Christine Marin General Adult HPI General Chief complaint: Extremity Problem,Nontraumatic Stated complaint: spider bite left leg Time Seen by Provider: 01/09/25 11:00 Mode of Arrival: Ambulatory Source of Information: Patient Description of Symptoms (Recalled from ER Triage Doc. by RN): left calf possible spider bite. happened wednesday night. History of Present Illness HPI narrative: This patient is a 29-year-old female well-known to the emergency department presenting with concern for a possible spider bite to the left lower leg. She states that she felt something bite her on the leg and when she pulled the blanket up, she saw a spider down there. She notes that it was brown and small. She also expresses concern for recurrent lesions that pop up under her breasts. She states that she has been told she has hidradenitis suppurativa before in her underarms and to have to have her sweat glands removed at some point, but it had been bothering her much so she has not seen anyone for recently. No other concerns noted at this time Related Data Home Medications ?Medication ?Instructions ?Recorded ?Confirmed bisoprolol fumarate 5 mg tablet 5 mg PO DAILY 07/18/24 12/03/24 Previous Rx's ?Medication ?Instructions ?Recorded ibuprofen 800 mg tablet 800 mg PO Q8H #20 tabs 10/31/24 omeprazole 40 mg capsule,delayed 40 mg PO DAILY #30 caps 11/23/24 release aspirin 81 mg tablet,delayed See Rx Instructions .Route 12/12/24 release .COMPLEX #30 tabs ibuprofen 800 mg tablet 800 mg PO Q8H PRN pain #12 tabs 12/15/24 ondansetron 4 mg disintegrating 4 mg PO Q8H PRN nausea and 12/15/24 tablet vomiting 4 days #12 tabs ibuprofen 800 mg tablet 800 mg PO Q8H PRN pain #20 tabs 12/30/24 chlorhexidine gluconate 2 % 1 applic topical DAILY #118 mL 01/09/25 topical liquid clindamycin phosphate 1 % topical 1 applic topical DAILY #75 mL 01/09/25 gel, once daily sulfamethoxazole 800 1 tab PO BID 7 days #14 tabs 01/09/25 mg-trimethoprim 160 mg tablet (Bactrim DS) Allergies Allergy/AdvReac Type Severity Reaction Status Date / Time ketorolac (From TORADOL) Allergy Mild Hives Verified 12/03/24 12:39 tramadol (TRAMADOL) Allergy Mild Hives Verified 12/03/24 12:39 diphenhydramine (From Allergy Unknown I-HIVES Verified 12/03/24 12:39 BENADRYL) [facility] Disclaimer: The information contained in this section may have been updated after the patient was seen, as this information can be updated by other users. Medical History Thyromegaly Chronic GERD Globus sensation Kidney stones Patient left without being seen Postoperative pain Otitis media Abdominal pain Foot callus Cellulitis Patient left without being seen Trichomonal vaginitis Postoperative abdominal pain Dysmenorrhea Menorrhagia Right lower quadrant pain Dysfunctional uterine bleeding Flank pain Palpitations SOB (shortness of breath) Concussion without loss of consciousness Microhematuria Acute right flank pain Degenerative joint disease (DJD) of lumbar spine Patient left without being seen Otitis externa Lumbar disc disease Tachycardia Back pain Dyspnea Chest pain Atypical chest pain Ovarian cyst Trichomonal cystitis Abdominal pain of unknown etiology Bilious vomiting Vomiting Closed fracture of tuft of distal phalanx of finger Pelvic pain UTI (urinary tract infection) Renal colic on left side Endometriosis Surgical History Hx of tonsillectomy History of cholecystectomy History of appendectomy H/O hysterectomy with oophorectomy [place] teeth extracted S/P appendectomy S/P hysterectomy Family History Mother Diabetes Hypertension Grandmother Cancer Father Cancer Hypertension Diabetes Social History Smoking Status: Current every day smoker tobacco type: cigarettes packs per day: 1 alcohol intake: never counseling provided: none substance use type: denies use current occupational status: employed and other Travel in the last 8 weeks?: None household members: spouse housing: house current occupational exposures/hazards: No caffeine: Yes Have you lived/traveled outside US in past 30 days?: No Contact w/someone who lives/traveled outside US past 30 days?: No Exposure to someone with infectious disease in past 14 days?: No Do you have a fever (greater than 100.4 F or 38 C)?: No Have you tested positive for COVID-19?: No Exposed to someone with COVID-19 in past 14 days?: No Do you have a sore throat?: No Do you have a cough?: No Do you have any weakness?: No Do you have any diarrhea?: No Are you experiencing any unusual bleeding?: No Do you have any muscle aches/pain?: No Do you have any abdominal pain?: No Are you experiencing loss of taste or smell?: No Other Medical History Have you received the Flu Vaccine for this season: No Have you received the Pneumonia Vaccine: No ROS Obtained: Yes All systems reviewed & no additional complaints except as documented Physical Exam General General appearance: alert and in no apparent distress Head Head exam: atraumatic and normocephalic Eye Eye exam: Present normal appearance, PERRL and EOMI ENT ENT exam: Present normal exam, normal oropharynx, mucous membranes moist and normal external ear exam Neck Neck exam: Present normal inspection, full ROM and trachea midline; Absent tenderness Chest Chest inspection: Present normal inspection and symmetric chest wall rise; Absent tenderness Respiratory Respiratory exam: Present normal lung sounds bilaterally; Absent respiratory distress, wheezes, stridor or accessory muscle use Cardiovascular Cardiovascular exam: Present regular rate and normal rhythm Abdominal Exam Abdominal exam: Present soft; Absent distention, tenderness or guarding Extremities Exam Extremities exam: Present normal inspection, full ROM and normal capillary refill; Absent tenderness or edema Back Exam Back exam: Present normal inspection and full ROM; Absent tenderness Neurological Exam Neurological exam: Present alert, oriented X3, CN II-XII intact and normal gait; Absent motor sensory deficit Psychiatric Psychiatric exam: Present normal affect and normal mood Skin Skin exam: Present warm, dry and other (erythematous insect bite with central ulceration to LLE, minimal surrounding erythema with TTP. No purulence/fluctuance. Healing areas under R breasts consistent with HS) Medical Decision Making Medical Records Medical records reviewed: Yes I reviewed the patient's medical records. Screening: Per USPSTF and CDC recommendations, given the prevalence of disease in our region, it is our hospital?s policy to screen for HIV and viral Hepatitis for all patients aged 18 and over and those with ongoing risk factors. Aram Inquiry Pt receiving controlled substance: No Vital Signs: 01/09/25 10:57 Temperature 98.1 F Temperature Source Oral Pulse Rate [Right] 98 H Respiratory Rate 20 Blood Pressure [Right Arm] 144/99 H Blood Pressure Mean [Right Arm] 114 02 Sat by Pulse Oximetry 100 Lab Data Lab results reviewed: Yes I reviewed the patient's lab results. Medical Decision Narrative: In summary, this patient is a 29-year-old female presenting to the Emergency Department for evaluation of possible spider bite to the left lower leg. She also expresses concern for recurrent lesions on her breasts in the setting of hidradenitis suppurativa. Differential diagnoses considered include but are not limited to at bedtime, spider bite, insect bite, cellulitis, abscess. Ruling out the most morbid conditions drove assessment. I reviewed patient's past medical records and noted multiple prior ED evaluations for dental pain. On exam, the patient is sitting upright in no acute distress. She has an insect bite to the left lower extremity that is mildly erythematous with no palpable fluctuance or induration. She has multiple lesions under her right breast that appear to be in various stages of healing, she does have at bedtime and does not have any obvious acute infection based on my assessment. I considered obtaining basic labs, however I do not feel that this is indicated as it would likely not meter changes records clerk given the patient is nontoxic-appearing with reassuring vital signs. I feel she is appropriate for treatment on an outpatient basis with Bactrim for presumed infected insect bite to her lower extremity as well as topical clindamycin and chlorhexidine wash for at bedtime. I advised surgery follow-up and PCP follow-up for this as well. Strict return precautions given. Critical Care Critical Care Time Critical Care Time: No
[2025-01-09 11:21] VITALS: BP 140/88; PULSE 80; RESP 18; TEMP 36.7; O2SAT 98
== END 2025-01-09 11:22 | disposition home or self-care (01) ==
PROVIDERS: Emergency Provider Emergency Medicine; PCP Family Medicine
DX: S80.862A Insect bite (nonvenomous), left lower leg, initial encounter (principal); L73.2 Hidradenitis suppurativa; W57.XXXA Bitten or stung by nonvenomous insect and other nonvenomous arthropods, initial encounter
CPT/HCPCS: 99283

== ENCOUNTER 2025-01-14 12:44 | Emergency (ER) | payer OTHER, SELFPAY ==
[2025-01-14 12:52] VITALS: BP 129/90; PULSE 83; RESP 20; TEMP 36.8; O2SAT 98; BMI 40.4
[2025-01-14] MEDS: LIDOCAINE 2% VISCOUS SOL 15ML UDC 15 ML PO (13:30)
[2025-01-14 13:48] VITALS: BP 129/90; PULSE 83; RESP 20; TEMP 36.8; O2SAT 98
--- NOTE | 2025-01-14 20:08 | ED_ITS ---
<Statement entered by Gary Menchaca DO - 01/16/25 14:42> I was consulted by the JOVANNY, and we discussed the complexity of the problem being addressed. I approve the treatment and management plan for this patient's care in the emergency department, thus performing a substantive portion of the medical decision making. Seen by JOVANNY only. Gary Menchaca DO Discharge Plan Disposition Patient Disposition: Home, Self-Care Condition: Good Prescriptions Prescriptions: No Action ibuprofen 800 mg tablet 800 mg PO Q8H Qty: 20 0RF omeprazole 40 mg capsule,delayed release(DR/EC) 40 mg PO DAILY Qty: 30 2RF aspirin 81 mg tablet,delayed release (DR/EC) See Rx Instructions .ROUTE .COMPLEX Qty: 30 0RF Dose Instruction: TAKE 1 TABLET BY MOUTH ONCE DAILY FOR HEART HEALTH Rx Instructions: TAKE 1 TABLET BY MOUTH ONCE DAILY FOR HEART HEALTH bisoprolol fumarate 5 mg tablet 5 mg PO DAILY Rx Instructions: TAKE 1 TABLET BY MOUTH ONCE DAILY FOR HYPERTENSION ibuprofen 800 mg tablet 800 mg PO Q8H PRN (Reason: pain) Qty: 12 0RF ondansetron 4 mg tablet,disintegrating 4 mg PO Q8H PRN (Reason: nausea and vomiting) 4 Days Qty: 12 0RF ibuprofen 800 mg tablet 800 mg PO Q8H PRN (Reason: pain) Qty: 20 0RF chlorhexidine gluconate 2 % liquid 1 applic topical DAILY Qty: 118 0RF Rx Instructions: Cleanse affected area daily. clindamycin phosphate 1 % gel, once daily 1 applic topical DAILY Qty: 75 0RF Rx Instructions: Apply to affected area daily. sulfamethoxazole-trimethoprim [Bactrim DS] 800-160 mg tablet 1 tab PO BID 7 Days Qty: 14 0RF Referrals Follow up/Referrals: Gary Flanagan MD [Primary Care Provider] - See instructions Activity Restrictions/Add. Instructions Additional Instructions/Restrictions: You were seen for dental caries. Please continue your antibiotics and follow up with the oral surgeon this week. Return to the ER if you cannot drink or open your mouth, or if you develop fever. Clinical Impressions Clinical Impression: Dental caries Instructions Patient Instructions: DI for Tooth Decay Print Language Print Language: Jordanian Discharge ED Provider: Gary Menchaca General Adult HPI General Chief complaint: Dental/Oral Stated complaint: AO-01/13 1700 hours, Right side tooth pain Time Seen by Provider: 01/14/25 12:50 Mode of Arrival: Ambulatory Source of Information: Patient Description of Symptoms (Recalled from ER Triage Doc. by RN): pt is here for tooth pain, been seen here several times for same cc History of Present Illness HPI narrative: Patient presents with right lower dental pain. She reports that she has been seeing an oral surgeon and is currently taking clindamycin. She reports that she has follow-up this week on Wednesday. She reports her nephew hit the right side of her jaw with a ball today and she felt her tooth chipped . She denies F/C/N/V. She reports it is painful to open her mouth and she feels a knot . MD complaint: Dental pain Onset (ago): hour(s) Location: mouth Severity: similar to prior episodes Consistency: constant Relieving factors: none Exacerbating factors: none Associated symptoms: negative fever/chills or nausea/vomiting Related Data Home Medications ?Medication ?Instructions ?Recorded ?Confirmed bisoprolol fumarate 5 mg tablet 5 mg PO DAILY 07/18/24 12/03/24 Previous Rx's ?Medication ?Instructions ?Recorded ibuprofen 800 mg tablet 800 mg PO Q8H #20 tabs 10/31/24 omeprazole 40 mg capsule,delayed 40 mg PO DAILY #30 caps 11/23/24 release aspirin 81 mg tablet,delayed See Rx Instructions .Route 12/12/24 release .COMPLEX #30 tabs ibuprofen 800 mg tablet 800 mg PO Q8H PRN pain #12 tabs 12/15/24 ondansetron 4 mg disintegrating 4 mg PO Q8H PRN nausea and 12/15/24 tablet vomiting 4 days #12 tabs ibuprofen 800 mg tablet 800 mg PO Q8H PRN pain #20 tabs 12/30/24 chlorhexidine gluconate 2 % 1 applic topical DAILY #118 mL 01/09/25 topical liquid clindamycin phosphate 1 % topical 1 applic topical DAILY #75 mL 01/09/25 gel, once daily sulfamethoxazole 800 1 tab PO BID 7 days #14 tabs 01/09/25 mg-trimethoprim 160 mg tablet (Bactrim DS) Allergies Allergy/AdvReac Type Severity Reaction Status Date / Time ketorolac (From TORADOL) Allergy Mild Hives Verified 12/03/24 12:39 tramadol (TRAMADOL) Allergy Mild Hives Verified 12/03/24 12:39 diphenhydramine (From Allergy Unknown I-HIVES Verified 12/03/24 12:39 BENADRYL) [facility] Disclaimer: The information contained in this section may have been updated after the patient was seen, as this information can be updated by other users. Medical History Thyromegaly Chronic GERD Globus sensation Kidney stones Patient left without being seen Postoperative pain Otitis media Abdominal pain Foot callus Cellulitis Patient left without being seen Trichomonal vaginitis Postoperative abdominal pain Dysmenorrhea Menorrhagia Right lower quadrant pain Dysfunctional uterine bleeding Flank pain Palpitations SOB (shortness of breath) Concussion without loss of consciousness Microhematuria Acute right flank pain Degenerative joint disease (DJD) of lumbar spine Patient left without being seen Otitis externa Lumbar disc disease Tachycardia Back pain Dyspnea Chest pain Atypical chest pain Ovarian cyst Trichomonal cystitis Abdominal pain of unknown etiology Bilious vomiting Vomiting Closed fracture of tuft of distal phalanx of finger Pelvic pain UTI (urinary tract infection) Renal colic on left side Endometriosis Surgical History Hx of tonsillectomy History of cholecystectomy History of appendectomy H/O hysterectomy with oophorectomy [place] teeth extracted S/P appendectomy S/P hysterectomy Family History Mother Diabetes Hypertension Grandmother Cancer Father Cancer Hypertension Diabetes Social History Smoking Status: Current every day smoker tobacco type: cigarettes packs per day: 1 alcohol intake: never counseling provided: none substance use type: denies use current occupational status: employed and other Travel in the last 8 weeks?: None household members: spouse housing: house current occupational exposures/hazards: No caffeine: Yes Have you lived/traveled outside [place] in past 30 days?: No Contact w/someone who lives/traveled outside US past 30 days?: No Exposure to someone with infectious disease in past 14 days?: No Do you have a fever (greater than 100.4 F or 38 C)?: No Have you tested positive for COVID-19?: No Exposed to someone with COVID-19 in past 14 days?: No Do you have a sore throat?: No Do you have a cough?: No Do you have any weakness?: No Do you have any diarrhea?: No Are you experiencing any unusual bleeding?: No Do you have any muscle aches/pain?: No Do you have any abdominal pain?: No Are you experiencing loss of taste or smell?: No Other Medical History Have you received the Flu Vaccine for this season: No Have you received the Pneumonia Vaccine: No ROS Obtained: Yes Systems reviewed as appropriate & no additional complaints except as documented Physical Exam General General appearance: alert and in no apparent distress Head Head exam: atraumatic and normocephalic Eye Eye exam: Present normal appearance and EOMI ENT ENT exam: Present normal exam and other (dental caries noted, tender right mandible, no palpable abscess, no chip noted in tooth. Able to stick out tongue, no sublingual firmness, able to open mouth ) Chest Chest inspection: Present symmetric chest wall rise Respiratory Respiratory exam: Present normal lung sounds bilaterally; Absent wheezes or stridor Cardiovascular Cardiovascular exam: Present regular rate and normal rhythm; Absent systolic murmur Extremities Exam Extremities exam: Present full ROM Neurological Exam Neurological exam: Present alert and oriented X3 Psychiatric Psychiatric exam: Present normal affect and normal mood Skin Skin exam: Present warm, dry and intact Medical Decision Making Medical Records Screening: Per USPSTF and CDC recommendations, given the prevalence of disease in our region, it is our hospital?s policy to screen for HIV and viral Hepatitis for all patients aged 18 and over and those with ongoing risk factors. Aram Inquiry Pt receiving controlled substance: No Vital Signs: 01/14/25 12:52 01/14/25 13:48 Temperature 98.2 F 98.2 F Temperature Source Oral Oral Pulse Rate 83 Pulse Rate [Left Radial] 83 Respiratory Rate 20 20 Blood Pressure 129/90 Blood Pressure [Right Arm] 129/90 Blood Pressure Mean [Right Arm] 103 Blood Pressure Source Automatic Cuff Blood Pressure Position Sitting 02 Sat by Pulse Oximetry 98 Oxygen Delivery Method Room Air Room Air Orders (Tests/Meds): ED MEDICATIONS Discontinued Medications Generic Name Dose Route Start Last Admin Trade Name Freq PRN Reason Stop Dose Admin Lidocaine HCl 15 ml 01/14/25 13:05 01/14/25 13:30 Lidocaine 2% Viscous Daisha 15ml Udc PO 01/14/25 13:06 15 ml ONCE ONE Administration Medical Decision Narrative: In summary patient is a 29-year-old who presents the emergency department for evaluation of right dental pain. Patient is hemodynamically stable upon arrival, afebrile. Tenderness along the right mandible. Differential diagnosis includes dental caries, abscess. No abscess on exam, patient can open mouth and protrude tongue. given this patient is appropriate for discharge home at this time. Given dental balls in the emergency department. She is currently taking clindamycin. Advised to keep her appointment with her oral surgeon. Critical Care Critical Care Time Critical Care Time: No
== END 2025-01-14 13:49 | disposition home or self-care (01) ==
PROVIDERS: Emergency Provider Student in an Organized Health Care Education/Training Program; PCP Family Medicine
DX: R68.84 Jaw pain (principal); W21.09XA Struck by other hit or thrown ball, initial encounter
CPT/HCPCS: 99283

== ENCOUNTER 2025-02-04 12:39 | Emergency (ER) | payer OTHER, SELFPAY ==
[2025-02-04 12:46] VITALS: BP 127/83; PULSE 87; RESP 15; TEMP 36.9; O2SAT 99; BMI 40.2
[2025-02-04 13:44] VITALS: BP 129/86; PULSE 97; RESP 15; TEMP 36.9; O2SAT 99
[2025-02-04] MEDS: LIDOCAINE 2% VISCOUS SOL 15ML UDC 15 ML PO (13:52)
[2025-02-04] MEDS: TETRACAINE/BENZOCAINE/BUTAMBEN 56 GM SPRAY TP (13:52)
--- NOTE | 2025-02-05 15:26 | HMH.EDGENADL ---
Discharge Plan Disposition Patient Disposition: Home, Self-Care Condition: Good Prescriptions Prescriptions: New clindamycin HCl 300 mg capsule 300 mg PO Q8H 7 Days Qty: 21 0RF No Action ibuprofen 800 mg tablet 800 mg PO Q8H Qty: 20 0RF omeprazole 40 mg capsule,delayed release(DR/EC) 40 mg PO DAILY Qty: 30 2RF aspirin 81 mg tablet,delayed release (DR/EC) See Rx Instructions .ROUTE .COMPLEX Qty: 30 0RF Dose Instruction: TAKE 1 TABLET BY MOUTH ONCE DAILY FOR HEART HEALTH Rx Instructions: TAKE 1 TABLET BY MOUTH ONCE DAILY FOR HEART HEALTH bisoprolol fumarate 5 mg tablet 5 mg PO DAILY Rx Instructions: TAKE 1 TABLET BY MOUTH ONCE DAILY FOR HYPERTENSION ibuprofen 800 mg tablet 800 mg PO Q8H PRN (Reason: pain) Qty: 12 0RF ondansetron 4 mg tablet,disintegrating 4 mg PO Q8H PRN (Reason: nausea and vomiting) 4 Days Qty: 12 0RF ibuprofen 800 mg tablet 800 mg PO Q8H PRN (Reason: pain) Qty: 20 0RF chlorhexidine gluconate 2 % liquid 1 applic topical DAILY Qty: 118 0RF Rx Instructions: Cleanse affected area daily. clindamycin phosphate 1 % gel, once daily 1 applic topical DAILY Qty: 75 0RF Rx Instructions: Apply to affected area daily. sulfamethoxazole-trimethoprim [Bactrim DS] 800-160 mg tablet 1 tab PO BID 7 Days Qty: 14 0RF Referrals Follow up/Referrals: Provider,Referral, MD [Primary Care Provider] - See instructions Activity Restrictions/Add. Instructions Additional Instructions/Restrictions: Please follow-up with a dentist as well as a primary care provider. Return to the emergency department for new or worsening symptoms. Clinical Impressions Clinical Impression: Chronic dental pain Instructions Patient Instructions: DI for Chronic Pain -- Adult, DI for Dental Pain Print Language Print Language: [place] Discharge ED Provider: [facility] HPI General Chief complaint: Dental/Oral Stated complaint: Abscess tooth- R side Time Seen by Provider: 02/04/25 13:34 Mode of Arrival: Ambulatory Source of Information: Patient Description of Symptoms (Recalled from ER Triage Doc. by RN): patient states she has an abcessed tooth on top right molar has recently been on antibiotics finished them 7 days ago. has appt for oral sx on next wednesday. having 9/10 pain History of Present Illness HPI narrative: This patient is a 29-year-old female well-known to the emergency department presenting with concern for dental pain. Patient has had multiple ED visits for dental pain and other various complaints of pain in the past. Patient has been seen by dentist with extraction of teeth on the left side and she states that she has a follow-up on Wednesday for extraction of teeth on the right side. She notes she thinks she is developing an abscess on the right. She has pain and swelling. No drooling, trismus, difficulty breathing, or other concerns Related Data Home Medications ?Medication ?Instructions ?Recorded ?Confirmed bisoprolol fumarate 5 mg tablet 5 mg PO DAILY 07/18/24 12/03/24 Previous Rx's ?Medication ?Instructions ?Recorded ibuprofen 800 mg tablet 800 mg PO Q8H #20 tabs 10/31/24 omeprazole 40 mg capsule,delayed 40 mg PO DAILY #30 caps 11/23/24 release aspirin 81 mg tablet,delayed See Rx Instructions .Route 12/12/24 release .COMPLEX #30 tabs ibuprofen 800 mg tablet 800 mg PO Q8H PRN pain #12 tabs 12/15/24 ondansetron 4 mg disintegrating 4 mg PO Q8H PRN nausea and 12/15/24 tablet vomiting 4 days #12 tabs ibuprofen 800 mg tablet 800 mg PO Q8H PRN pain #20 tabs 12/30/24 chlorhexidine gluconate 2 % 1 applic topical DAILY #118 mL 01/09/25 topical liquid clindamycin phosphate 1 % topical 1 applic topical DAILY #75 mL 01/09/25 gel, once daily sulfamethoxazole 800 1 tab PO BID 7 days #14 tabs 01/09/25 mg-trimethoprim 160 mg tablet (Bactrim DS) clindamycin HCl 300 mg capsule 300 mg PO Q8H 7 days #21 caps 02/04/25 Allergies Allergy/AdvReac Type Severity Reaction Status Date / Time ketorolac (From TORADOL) Allergy Mild Hives Verified 12/03/24 12:39 tramadol (TRAMADOL) Allergy Mild Hives Verified 12/03/24 12:39 diphenhydramine (From Allergy Unknown I-HIVES Verified 12/03/24 12:39 BENADRYL) [facility] Disclaimer: The information contained in this section may have been updated after the patient was seen, as this information can be updated by other users. Medical History Thyromegaly Chronic GERD Globus sensation Kidney stones Patient left without being seen Postoperative pain Otitis media Abdominal pain Foot callus Cellulitis Patient left without being seen Trichomonal vaginitis Postoperative abdominal pain Dysmenorrhea Menorrhagia Right lower quadrant pain Dysfunctional uterine bleeding Flank pain Palpitations SOB (shortness of breath) Concussion without loss of consciousness Microhematuria Acute right flank pain Degenerative joint disease (DJD) of lumbar spine Patient left without being seen Otitis externa Lumbar disc disease Tachycardia Back pain Dyspnea Chest pain Atypical chest pain Ovarian cyst Trichomonal cystitis Abdominal pain of unknown etiology Bilious vomiting Vomiting Closed fracture of tuft of distal phalanx of finger Pelvic pain UTI (urinary tract infection) Renal colic on left side Endometriosis Surgical History Hx of tonsillectomy History of cholecystectomy History of appendectomy H/O hysterectomy with oophorectomy [place] teeth extracted S/P appendectomy S/P hysterectomy Family History Mother Diabetes Hypertension Grandmother Cancer Father Cancer Hypertension Diabetes Social History Smoking Status: Current every day smoker tobacco type: cigarettes packs per day: 1 alcohol intake: never counseling provided: none substance use type: denies use current occupational status: employed and other Travel in the last 8 weeks?: None household members: spouse housing: house current occupational exposures/hazards: No caffeine: Yes Have you lived/traveled outside US in past 30 days?: No Contact w/someone who lives/traveled outside US past 30 days?: No Exposure to someone with infectious disease in past 14 days?: No Do you have a fever (greater than 100.4 F or 38 C)?: No Have you tested positive for COVID-19?: No Exposed to someone with COVID-19 in past 14 days?: No Do you have a sore throat?: No Do you have a cough?: No Do you have any weakness?: No Do you have any diarrhea?: No Are you experiencing any unusual bleeding?: No Do you have any muscle aches/pain?: No Do you have any abdominal pain?: No Are you experiencing loss of taste or smell?: No Other Medical History Have you received the Flu Vaccine for this season: No Have you received the Pneumonia Vaccine: No ROS Obtained: Yes All systems reviewed & no additional complaints except as documented Physical Exam General General appearance: alert and in no apparent distress Head Head exam: atraumatic and normocephalic Eye Eye exam: Present normal appearance, PERRL and EOMI ENT ENT exam: Present mucous membranes moist, normal external ear exam and other (Extremely poor dentition with no obvious appreciable superficial abscess. No drooling or trismus) Neck Neck exam: Present normal inspection, full ROM and trachea midline; Absent tenderness Chest Chest inspection: Present normal inspection and symmetric chest wall rise; Absent tenderness Respiratory Respiratory exam: Present normal lung sounds bilaterally; Absent respiratory distress, wheezes, stridor or accessory muscle use Cardiovascular Cardiovascular exam: Present regular rate and normal rhythm Abdominal Exam Abdominal exam: Present soft; Absent distention, tenderness or guarding Extremities Exam Extremities exam: Present normal inspection, full ROM and normal capillary refill; Absent tenderness or edema Back Exam Back exam: Present normal inspection and full ROM; Absent tenderness Neurological Exam Neurological exam: Present alert, oriented X3, CN II-XII intact and normal gait; Absent motor sensory deficit Psychiatric Psychiatric exam: Present normal affect and normal mood Skin Skin exam: Present warm and dry Medical Decision Making Medical Records Medical records reviewed: Yes I reviewed the patient's medical records. Screening: Per USPSTF and CDC recommendations, given the prevalence of disease in our region, it is our hospital?s policy to screen for HIV and viral Hepatitis for all patients aged 18 and over and those with ongoing risk factors. Aram Inquiry Pt receiving controlled substance: No Vital Signs: 02/04/25 12:46 02/04/25 13:44 Temperature 98.4 F 98.4 F Temperature Source Oral Oral Pulse Rate 97 H Pulse Rate [Right Radial] 87 Respiratory Rate 15 15 Blood Pressure 129/86 Blood Pressure [Right Arm] 127/83 Blood Pressure Mean [Right Arm] 97 Blood Pressure Source Automatic Cuff Blood Pressure Source [Right Arm] Automatic Cuff Blood Pressure Position Sitting Blood Pressure Position [Right Arm] Sitting 02 Sat by Pulse Oximetry 99 Oxygen Delivery Method Room Air Room Air Lab Data Lab results reviewed: Yes I reviewed the patient's lab results. Orders (Tests/Meds): ED MEDICATIONS Discontinued Medications Generic Name Dose Route Start Last Admin Trade Name [place] PRN Reason Stop Dose Admin Benzocaine/Butamben/Tetracaine HCl 1 gm 02/04/25 13:34 02/04/25 13:52 Tetracaine/Benzocaine/Butamben 56 Gm [place] TP 02/04/25 13:35 1 gm ONCE ONE Administration Lidocaine HCl 15 ml 02/04/25 13:34 02/04/25 13:52 Lidocaine 2% Viscous Daisha 15ml Udc PO 02/04/25 13:35 15 ml ONCE ONE Administration Medical Decision Narrative: In summary, this patient is a 29-year-old female presenting to the Emergency Department for evaluation of acute on chronic dental pain with concern that she is developing a new abscess, though I do not see one on exam. Differential diagnoses considered include but are not limited to dental caries, dental abscess. Ruling out the most morbid conditions drove assessment. It should be noted patient's history includes multiple prior complaints of chronic pain, tobacco use which are not at goal therapy. This complicates all aspects of care by increasing patient's risk for morbidity. I reviewed patient's past medical records and noted multiple previous ED visits as detailed in HPI. On exam, the patient is very well-appearing with no obvious appreciable soft tissue swelling or abscess. She has very poor dentition at baseline. I feel the patient is appropriate for discharge home without labs or imaging with prescription for clindamycin as well as dental balls to treat the pain. She was given instructions to keep her follow-up with her dentist and strict return precautions. She was discharged after all questions were answered. Critical Care Critical Care Time Critical Care Time: No
== END 2025-02-04 13:58 | disposition home or self-care (01) ==
PROVIDERS: Emergency Provider Emergency Medicine
DX: K08.89 Other specified disorders of teeth and supporting structures (principal); F17.210 Nicotine dependence, cigarettes, uncomplicated
CPT/HCPCS: 99283

== ENCOUNTER 2025-03-15 14:17 | Emergency (ER) | payer OTHER, SELFPAY ==
--- OUTSIDE RECORDS SUMMARY | 2025-01-16 23:50 | XMS_ITS | Continuity of Care Document ---
Author Organization [facility] Phone Care Team Providers Care Fiberglass Technician Name Role Phone COLOM, MIKAYLA Admitting Unavailable NO, DEFINED P Primary Care Unavailable COLOM, MIKAYLA Primary Attending Unavailable ALLERGIES AND ADVERSE REACTIONS FAMILY HISTORY MEDICATIONS SOCIAL HISTORY VITAL SIGNS HEALTH CONCERNS ENCOUNTERS CARE TEAM
--- OUTSIDE RECORDS SUMMARY | 2025-01-22 01:07 | XMS_ITS | Continuity of Care Document ---
Author Organization [facility] Phone Care Team Providers Care Electronics Department Manager Name Role Phone AUDREY PLATT Admitting Unavailable AUDREY PLATT Primary Attending Unavailable NO, DEFINED P Unavailable Unavailable NO, DEFINED P Primary Care Unavailable ALLERGIES AND ADVERSE REACTIONS ALLERGIES AND ADVERSE REACTIONS Code System Allergy Substance Adverse Reaction Date Reaction (Severity) Comment Status Reported By Updated By [id number] RXNorm Benadryl Adverse reaction to substance Not Specified active [id number] on January 18, 2025 5:14:40 PM UTC Tramadol HCl (Free Text Allergy) Adverse reaction to substance Not Specified active [id number] on January 18, 2025 5:14:40 PM UTC Toradol Adverse reaction to substance Not Specified active [id number] on January 18, 2025 5:14:40 PM UTC DENTAL BALLS (Free Text Allergy) Adverse reaction to substance Not Specified active [id number] on January 18, 2025 5:14:40 PM UTC FAMILY HISTORY RELATION: Father Status: LIVING SNOMED-CT Diagnosis Age At Onset [id number] Hypertensive disorder [id number] Deep venous thrombosis RELATION: Mother Status: LIVING SNOMED-CT Diagnosis Age At Onset [id number] Hypertensive disorder [id number] Heart disease MEDICATIONS HOME MEDICATIONS Status RXNORM NDC Medication Dose Route Frequency Dates Comments Reported By Updated By Drug Treatment Unknown DISCHARGE MEDICATIONS Status RXNORM NDC Medication Dose Route Frequency Dates Comments Physician Updated By No Discharge Medication Info rmation Available INPATIENT MEDICATIONS Status RXNORM NDC Medication Dose Route Frequency Rat e Quantity Dates Comments Physician Updated By [facility] [id number] [phone] morphine sulfate (PF) CJ 2 MG/ML SOLN 2.0 MG INTRAV ENOUS ONE TIME ONLY (SCHEDULED DOSE) Start: January 18, 2025 5:35:0 0 PM UTC End: January 18, 2025 5:35:0 0 PM UTC GIULIA Ely [facility] ED on January 18, 2025 5:35:00 PM [place] SOCIAL HISTORY SOCIAL HISTORY SNOMED-CT Social History Element Description Effective Dates Offered Cessation Comment UpdatedBy [id number] Current Tobacco smoking status Smoker, Current Status Unknown [id number] on January 18, 2025 5:15:03 PM UT [id number] Historical Tobacco smoking status Current Every Day Smoker [id number] on January 15, 2025 4:07:29 PM UT [id number] Historical Tobacco smoking status Unknown If Ever Smoked [id number] on December 17, 2024 12:47:30 AM [place] [id number] Historical Tobacco smoking status Never Smoked [id number] on September 21, 2024 12:31:08 AM [facility] SOCIAL HISTORY - Gender Sex: Female SOCIAL HISTORY - Status : status i nformation is not available Intention in Next Year: intention information is not available SOCIAL HISTORY - Sexual Behavior Sexual Orientation Gender Identity SNOMED-CT Description SNO MED -CT Description Activity Level No of Partners Partner Type UpdatedBy Information is not available VITAL SIGNS PATIENT VITAL SIGNS This section displays the mo st recent value for each vital sign as of January 22, 2025 5:07:02 AM [facility] Loinc Code Vital Sign Activity Date Result Updated By 8310-5 Body temperature January 18, 2025 5:1 1:00 PM UTC 98.2 [degF] [id number] on January 18, 2025 5:13:52 PM UT 8462-4 Diastolic blood pressure January 18, 2025 5:31:00 PM UTC 79.0 mm[Hg] [id number] on January 18, 2025 5:31:19 PM UT 8867-4 Heart rate January 18, 2025 6:00 :00 PM UTC 69 /min [id number] on January 18, 2025 6:06:[place] [address]-3 Oxygen saturation in Arterial blood by Pulse oximetry January 18, 2025 6:00:00 PM UTC 98.0 % [id number] on January 18, 2025 6:06:00 PM UT 9279-1 Respiratory rate January 18, 2025 5:1 1:00 PM UTC 20 /min [id number] on January 18, 2025 5:13:52 PM UT 8480-6 Systolic blood pressure January 18 5:31:00 PM UTC 118.0 mm[Hg] [id number] on January 18, 2025 5:31:19 PM [facility] PEDIATRIC GROWTH CHART - VITAL SIGNS This section displays Head C ircumference Percentile, Weight for Length Percentile and BMI Percentile Loinc Code Pediatric Measure Age (Months) Result Updat ed By No Pediatric Growth Chart Pe rcentile Information Available. HEALTH CONCERNS Problems Concern Status Health Concern problem infor mation not available. Smoking Status Status Years Used Consumed packs p er day Health Concern smoking histo ry information not available. Family History Concern Status Health Concern family histor y information not available. ENCOUNTERS ENCOUNTER INFORMATION Reason for Visit TOOTHACHE Admission January 18, 2025 5:05:[address] [id number] Discharge January 18, 2025 6:06:00 PM [facility] DISCH ARGED TO HOME OR SELF CARE ENCOUNTER DIAGNOSES Notes information is not saundra ilable. Code System Diagnosis Onset Date Diagnosis information is not available. ABSTRACT DIAGNOSES Code System Diagnosis Updated By K04.7 ICD10 PERIAPICAL ABSCESS WITHOUT S INUS [id number] on January 22, 2025 5:06:18 AM [facility] K08.89 ICD10 OTHER SPECIFIED DISORDERS OF TEETH AND SUPPORTING STRUCTURES [id number] on January 22, 2025 5:06:18 AM [facility] K13.79 ICD10 OTHER LESIONS OF ORAL [place] [id number] on January 22, 2025 5:06:18 AM [facility] K04.7 ICD10 PERIAPICAL ABSCESS WITHOUT S INUS [id number] on January 22, 2025 5:06:18 AM [facility] Z72.0 ICD10 TOBACCO USE [id number] on January 22, 2025 5:06:18 AM [facility] Z88.8 ICD10 ALLERGY STATUS T O OTHER DRUGS, MEDICAMENTS AND BIOLOGICAL SUBSTANCES [id number] on January 22, 2025 5:06:18 AM [facility] Z88.5 ICD10 ALLERGY STATUS TO NARCOTIC A GENT [id number] on January 22, 2025 5:06:18 AM [facility] Z88.6 ICD10 ALLERGY STATUS TO ANALGESIC AGENT [id number] on January 22, 2025 5:06:18 AM [facility] CARE TEAM Care Electronics Department Manager Role AUDREY PLATT Admitting AUDREY PLATT Primary Attending DEFINED NO Referring DEFINED NO Primary Care CARE TEAM CARE conciliation court judge Role on Team Status Start Date End Date Update d By NO DEFINED PRIMARY C Referring normal January 18, 2025 5:25:25 PM [place] January 18, 2025 6:06:00 PM [place] [id number] on January 18, 2025 5:25:25 PM [place] GIULIA LUDWIG Attending normal January 18, 2025 5:25:25 PM [facility] January 18, 2025 6:06:00 PM [facility] [id number] on January 18, 2025 5:25:25 PM [facility] GIULIA LUDWIG Admitting normal January 18, 2025 5:25:25 PM [facility] January 18, 2025 6:06:00 PM [facility] [id number] on January 18, 2025 5:25:25 PM [facility] NO DEFINED PRIMARY C PCP normal January 18, 2025 5:06:04 PM [facility] January 18, 2025 6:06:00 PM [facility] [id number] on January 18, 2025 5:25:25 PM [place]
--- OUTSIDE RECORDS SUMMARY | 2025-02-08 05:25 | XMS_ITS | Continuity of Care Document ---
Author Organization [facility] Phone Care Team Providers Care Loop Sewer Name Role Phone REEN HUMMEL Admitting NO, DEFINED P Unavailable Unavailable NO, DEFINED P Primary Care Unavailable RENE HUMMEL Primary Attending ALLERGIES AND ADVERSE REACTIONS ALLERGIES AND ADVERSE REACTIONS Code System Allergy Substance Adverse Reaction Date Reaction (Severity) Comment Status Reported By Updated By 3498 RXNorm Benadryl Adverse reaction to substance Not Specified active [id number] on February 06, 2025 10:14:16 PM UT Tramadol HCl (Free Text Allergy) Adverse reaction to substance Not Specified active [id number] on February 06, 2025 10:14:16 PM UT Toradol Adverse reaction to substance Not Specified active [id number] on February 06, 2025 10:14:16 PM UT DENTAL BALLS (Free Text Allergy) Adverse reaction to substance Not Specified active [id number] on February 06, 2025 10:14:16 PM UT FAMILY HISTORY RELATION: Father Status: LIVING SNOMED-CT Diagnosis Age At Onset [id number] Hypertensive disorder [id number] Deep venous thrombosis RELATION: Mother Status: LIVING SNOMED-CT Diagnosis Age At Onset [id number] Hypertensive disorder [id number] Heart disease MEDICATIONS HOME MEDICATIONS Status RXNORM NDC Medication Dose Route Frequency Dates Comments Reported By Updated By Drug Treatment Unknown DISCHARGE MEDICATIONS Status RXNORM NDC Medication Dose Route Frequency Dates Comments Physician Updated By No Discharge Medication Info rmation Available INPATIENT MEDICATIONS Status RXNORM NDC Medication Dose Route Frequency Rat e Quantity Dates Comments Physician Updated By No Inpatient Medication Info rmation Available SOCIAL HISTORY SOCIAL HISTORY SNOMED-CT Social History Element Description Effective Dates Offered Cessation Comment UpdatedBy [id number] Current Tobacco smoking status Current Every Day Smoker [id number] on February 06, 2025 10:14:23 PM UT [id number] Historical Tobacco smoking status Smoker, Current Status Unknown [id number] on January 18, 2025 5:15:03 PM [facility] [id number] Historical Tobacco smoking status Unknown If Ever Smoked [id number] on December 17, 2024 12:47:30 AM UT [id number] Historical Tobacco smoking status Never Smoked [id number] on September 21, 2024 12:31:08 AM [facility] SOCIAL HISTORY - Gender Sex: Female SOCIAL [...] value for each vital sign as of February 08, 2025 9:25:11 AM UT Loinc Code Vital Sign Activity Date Result Updated By 8310-5 Body temperature February 06, 2025 10:09:00 PM UTC 98.7 [degF] [id number] on February 06, 2025 10:39:38 PM UT 8462-4 Diastolic blood pressure February 06, 2025 10:45:00 PM UTC 72.0 mm[Hg] [id number] on February 06, 2025 10:47:21 PM UT 8867-4 Heart rate February 06, 2025 10:30:00 PM UTC 93 /min [id number] on February 06, 2025 10:39:[place] [address]-9 Oxygen saturation in Arterial blood by Pulse oximetry February 06, 2025 10:30:00 PM UT 99.0 % [id number] on February 06, 2025 10:39:41 PM UT 9279-1 Respiratory rate February 06, 2025 10:09:00 PM UTC 18 /min [id number] on February 06, 2025 10:39:38 PM UT 8480-6 Systolic blood pressure February 06, 2025 10:45:00 PM UTC 122.0 mm[Hg] [id number] on February 06, 2025 10:47:21 PM [facility] PEDIATRIC GROWTH CHART - VITAL SIGNS This [...] available. ENCOUNTERS ENCOUNTER INFORMATION Reason for Visit TOOTH PAIN Admission February 06, 2025 10:02:00 PM [place] [id number] [facility] [address] Discharge February 06, 2025 10:51:00 PM UT DIS CHARGED TO HOME OR SELF CARE ENCOUNTER DIAGNOSES Notes information is not saundra ilable. Code System Diagnosis Onset Date Diagnosis information is not available. ABSTRACT DIAGNOSES Code System Diagnosis Updated By K08.89 ICD10 OTHER SPECIFIED DISORDERS OF TEETH AND SUPPORTING STRUCTURES [id number] on February 08, 2025 9:24:45 AM UT K04.7 ICD10 PERIAPICAL ABSCESS WITHOUT S INUS [id number] on February 08, 2025 9:24:45 AM UT K13.79 ICD10 OTHER LESIONS OF ORAL [place] [id number] on February 08, 2025 9:24:45 AM [facility] K02.9 ICD10 DENTAL CARIES, UNSPECIFIED D [id number] on February 08, 2025 9:24:45 AM [facility] Z88.1 ICD10 ALLERGY STATUS T O OTHER ANTIBIOTIC AGENTS [id number] on February 08, 2025 9:24:45 AM UT Z88.6 ICD10 ALLERGY STATUS TO ANALGESIC AGENT [id number] on February 08, 2025 9:24:45 AM [facility] Z88.5 ICD10 ALLERGY STATUS TO NARCOTIC A GENT [id number] on February 08, 2025 9:24:45 AM [facility] Z72.0 ICD10 TOBACCO USE [id number] on February 08, 2025 9:24:45 AM [facility] CARE TEAM Care Loop Sewer Role RENE HUMMEL Admitting DEFINED NO Referring DEFINED NO Primary Care RENE HUMMEL Primary Attending CARE TEAM CARE seismograph recorder Role on Team Status Start Date End Date Update d By NO DEFINED PRIMARY C Referring normal February 06, 2025 10:32:25 PM UT February 06, 2025 10:51:00 PM UT [id number] on February 06, 2025 10:32:25 PM [facility] SHAHEED Desir Attending normal February 06 10:32:25 PM UT February 06, 2025 10:51:00 PM UTC [id number] on February 06, 2025 10:32:25 PM UTC SHAHEED LÓPEZ N Admitting normal February 06 10:32:24 PM UTC February 06, 2025 10:51:00 PM UTC [id number] on February 06, 2025 10:32:25 PM UTC NO DEFINED PRIMARY C PCP normal February 06, 2025 10:03:02 PM UTC February 06, 2025 10:51:00 PM UTC [id number] on February 06, 2025 10:32:25 PM UTC
--- OUTSIDE RECORDS SUMMARY | 2025-02-14 05:53 | XMS_ITS | Continuity of Care Document ---
Author Organization [facility] Phone Care Team Providers Care Wool Mixer Name Role Phone NO, FAMILY P Primary Care SIRI SAUCEDO Unavailable SIRI SAUCEDO Primary Attending SIRI SAUCEDO Admitting ALLERGIES AND ADVERSE REACTIONS ALLERGIES AND ADVERSE REACTIONS Code System Allergy Substance Adverse Reaction Date Reaction (Severity) Comment Status Reported By Updated By Toradol Adverse reaction to substance Not Specified active [id number] on February 13, 2025 8:32:25 PM [facility] Tramadol Adverse reaction to substance Not Specified active [id number] on February 13, 2025 8:32:25 PM [facility] 3498 RXNorm Benadryl Adverse reaction to substance Not Specified active [id number] on February 13, 2025 8:32:25 PM [facility] Dental balls (Free Text Allergy) Adverse reaction to substance Not Specified active [id number] on February 13, 2025 8:32:25 PM [facility] MEDICATIONS HOME MEDICATIONS Status RXNORM NDC Medication Dose Route Frequency Dates Comments Reported By Updated By Active [id number] 5600 aspirin 81 mg tablet,chew able 1.0 TAB ORAL DAILY Last Dose: [id number] on February 12, 2025 11:52:14 AM [facility] Active 806192 7524164 5520 bisoprolol fumarate 5 mg tablet 1.0 TAB ORAL DAILY Last Dose: [id number] on February 12, 2025 11:52:14 AM [facility] DISCHARGE MEDICATIONS Status RXNORM NDC Medication Dose Route Frequency Dates Comments Physician Updated By Alyson Discharge Medication Info rmation Available INPATIENT MEDICATIONS Status RXNORM NDC Medication Dose Route Frequency Rat e Quantity Dates Comments Physician Updated By [facility] [id number] 4672 465 NORCO 5-325 MG TABS 1.0 TAB ORAL ONE TIME ONLY Start: February 12, 2025 12:14: 00 PM UT End: February 12, 2025 12:14: 00 PM UT LEWIS Friedman MD INTERFAC ED on February 12, 2025 12:13:00 PM UT Discont inued 894887 9012 3227 434 AUGMENTIN 500 MG/125 MG TABS 500.0 MG ORAL ONE TIME ONLY Start: February 12, 2025 12:14: 00 PM UT End: February 12, 2025 12:14: 00 PM [facility] LEWIS Friedman MD INTERFAC ED on February 12, 2025 12:14:00 PM UT Discont inued 913052 0180 7044 611 ibuprofen (MOTRIN) 400 MG TABS 400.0 MG ORAL ONE TIME ONLY Start: February 12, 2025 12:14: 00 PM UT End: February 12, 2025 12:14: 00 PM [facility] LEWIS Friedman MD INTERFAC ED on February 12, 2025 12:14:00 PM [facility] SOCIAL HISTORY SOCIAL HISTORY SNOMED-CT Social History Element Description Effective Dates Offered Cessation Comment UpdatedBy [id number] Current Tobacco smoking status Never Smoked [id number] on February 12, 2025 11:52:38 AM [facility] [id number] Historical Tobacco smoking status Unknown If Ever Smoked [id number] on January 12, 2025 3:18:49 PM [facility] [id number] Historical Tobacco smoking status Former Smoker [id number] on January 01, 2025 3:09:29 PM [facility] [id number] Historical Tobacco smoking status Light Tobacco Smoker [id number] on December 24, 2024 10:43:39 PM [facility] [id number] Historical Tobacco smoking status Current Every Day Smoker [id number] on December 11, 2024 8:45:19 PM [facility] SOCIAL HISTORY - Gender [...] for each vital sign as of February 14, 2025 9:53:03 AM UTC Loinc Code Vital Sign Activity Date Result Updated By 8310-5 Body temperature February 12, 2025 11:48:00 AM UTC 97.3 [degF] [id number] on February 12, 2025 11:50:51 AM UTC 45771-2 Body weight Measured February 12 11:50:52 AM UTC 10.6 kg (23.0 lb) [id number] on February 12, 2025 11:50:52 AM UTC 8462-4 Diastolic blood pressure February 12, 2025 11:48:00 AM UTC 81.0 mm[Hg] [id number] on February 12, 2025 11:50:51 AM UTC 8867-4 Heart rate February 12, 2025 11:48:00 AM UTC 93 /min [id number] on February 12, 2025 11:50:51 AM UTC 32696-3 Oxygen saturation in Arterial blood by Pulse oximetry February 12, 2025 11:48:00 AM UTC 97.3 % [id number] on February 12, 2025 11:50:51 AM UTC 9279-1 Respiratory rate February 12, 2025 12:28:00 PM UTC 16 /min [id number] on February 12, 2025 12:28:27 PM UTC 8480-6 Systolic blood pressure February 12, 2025 11:48:00 AM UTC 139.0 mm[Hg] [id number] on February 12, 2025 11:50:51 AM [place] PEDIATRIC GROWTH CHART - VITAL SIGNS This [...] available. ENCOUNTERS ENCOUNTER INFORMATION Reason for Visit FACIAL SWELLING Admission February 12, 2025 11:43:00 AM UTC [address] [address] Discharge February 12, 2025 12:28:00 PM UTC DIS CHARGED TO HOME OR SELF CARE ENCOUNTER DIAGNOSES Notes information is not saundra ilable. Code System Diagnosis Onset Date Diagnosis information is not available. ABSTRACT DIAGNOSES Code System Diagnosis Updated By R22.0 ICD10 LOCALIZED SWELLI NG, MASS AND LUMP, HEAD [id number] on February 14, 2025 9:52:22 AM UT K08.89 ICD10 OTHER SPECIFIED DISORDERS OF TEETH AND SUPPORTING STRUCTURES [id number] on February 14, 2025 9:52:22 AM UT K02.9 ICD10 DENTAL CARIES, UNSPECIFIED D [id number] on February 14, 2025 9:52:22 AM UT K02.51 ICD10 DENTAL CARIES ON PIT AND FISSURE SURFACE LIMITED TO ENAMEL [id number] on February 14, 2025 9:52:22 AM UT I10 ICD10 ESSENTIAL (PRIMARY) HYPERTEN JAIDA [id number] on February 14, 2025 9:52:22 AM UT Z88.1 ICD10 ALLERGY STATUS T O OTHER ANTIBIOTIC AGENTS [id number] on February 14, 2025 9:52:22 AM UT Z88.5 ICD10 ALLERGY STATUS TO NARCOTIC A GENT [id number] on February 14, 2025 9:52:22 AM UT Z88.6 ICD10 ALLERGY STATUS TO ANALGESIC AGENT [id number] on February 14, 2025 9:52:22 AM UT Z79.82 ICD10 MCFP (CURRENT) USE OF A SPIRIN [id number] on February 14, 2025 9:52:22 AM UT Z79.899 ICD10 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 UG THERAPY [id number] on February 14, 2025 9:52:22 AM [facility] CARE TEAM Care Wool Mixer Role FAMILY NO Primary Care SIRI SAUCEDO Referring SIRI SAUCEDO Primary Attending SIRI SAUCEDO Admitting CARE TEAM 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 Role on Team Status Start Date End Date Update d By LEWIS LUDWIG Referring normal February 12, 2025 12:19:10 PM [facility] February 12, 2025 12:28:00 PM [facility] [id number] on February 12, 2025 12:19:10 PM [facility] LEWIS LUDWIG Attending normal February 12, 2025 12:19:10 PM [facility] February 12, 2025 12:28:00 PM [facility] [id number] on February 12, 2025 12:19:10 PM [facility] LEWIS LUDWIG Admitting normal February 12, 2025 12:19:10 PM [facility] February 12, 2025 12:28:00 PM [facility] [id number] on February 12, 2025 12:19:10 PM [facility] NO FAMILY PHYSICIAN PCP normal February 12, 2025 11:44:09 AM [facility] February 12, 2025 12:28:00 PM [facility] [id number] on February 12, 2025 12:19:10 PM [facility]
--- OUTSIDE RECORDS SUMMARY | 2025-02-15 04:33 | XMS_ITS | Continuity of Care Document ---
Author Organization [facility] Phone Care Team Providers Care Environmental Sustainability Manager Name Role Phone SIRI SAUCEDO Primary Attending SIRI SAUCEDO Admitting SIRI SAUCEDO Unavailable NO, FAMILY P Primary Care ALLERGIES AND ADVERSE REACTIONS ALLERGIES AND ADVERSE REACTIONS Code System Allergy Substance Adverse Reaction Date Reaction (Severity) Comment Status Reported By Updated By Toradol Adverse reaction to substance Not Specified active [id number] on February 13, 2025 8:32:25 PM [place] Tramadol Adverse reaction to substance Not Specified active [id number] on February 13, 2025 8:32:25 PM [facility] 3498 RXNorm Benadryl Adverse reaction to substance Not Specified active [id number] on February 13, 2025 8:32:25 PM UT Dental balls (Free Text Allergy) Adverse reaction to substance Not Specified active [id number] on February 13, 2025 8:32:25 PM UT MEDICATIONS HOME MEDICATIONS Status RXNORM NDC Medication Dose Route Frequency Dates Comments Reported By Updated By Active [id number] 5600 aspirin 81 mg tablet,chew able 1.0 TAB ORAL DAILY Last Dose: [id number] on February 13, 2025 8:32:26 PM [facility] Active [id number] [id number] 5520 bisoprolol fumarate 5 mg tablet 1.0 TAB ORAL DAILY Last Dose: [id number] on February 13, 2025 8:32:26 PM [facility] DISCHARGE MEDICATIONS Status RXNORM NDC Medication Dose Route Frequency Dates Comments Physician Updated By No Discharge Medication Info rmation Available INPATIENT MEDICATIONS Status RXNORM NDC Medication Dose Route Frequency Rat e Quantity Dates Comments Physician Updated By No Inpatient Medication Info rmation Available SOCIAL HISTORY SOCIAL HISTORY SNOMED-CT Social History Element Description Effective Dates Offered Cessation Comment UpdatedBy [id number] Current Tobacco smoking status Never Smoked [id number] on February 13, 2025 8:58:30 PM UT [id number] Historical Tobacco smoking status Unknown If Ever Smoked [id number] on January 12, 2025 3:18:49 PM UT [id number] Historical Tobacco smoking status Former Smoker [id number] on January 01, 2025 3:09:29 PM UT [id number] Historical Tobacco smoking status Light Tobacco Smoker [id number] on December 24, 2024 10:43:39 PM UT [id number] Historical Tobacco smoking status Current Every Day Smoker [id number] on December 11, 2024 8:45:19 PM UT SOCIAL HISTORY - Gender Sex: Female SOCIAL [...] for each vital sign as of February 15, 2025 8:33:32 AM [facility] Loinc Code Vital Sign Activity Date Result Updated By 8310-5 Body temperature February 13, 2025 8: 28:00 PM UT 98.0 [degF] [id number] on February 13, 2025 8:30:46 PM UT 8462-4 Diastolic blood pressure February 13, 2025 8:27:00 PM UT 87.0 mm[Hg] [id number] on February 13, 2025 8:30:45 PM UT 8867-4 Heart rate February 13, 2025 8:5 6:00 PM UT 100 /min [id number] on February 13, 2025 8:58:[place] [address]-7 Oxygen saturation in Arterial blood by Pulse oximetry February 13, 2025 8:28:00 PM UT 98.0 % [id number] on February 13, 2025 8:30:46 PM UT 9279-1 Respiratory rate February 13, 2025 8: 28:00 PM UT 18 /min [id number] on February 13, 2025 8:30:46 PM UT 8480-6 Systolic blood pressure February 13, 2025 8:27:00 PM UTC 123.0 mm[Hg] [id number] on February 13, 2025 8:30:45 PM [facility] PEDIATRIC GROWTH CHART - VITAL SIGNS This [...] available. ENCOUNTERS ENCOUNTER INFORMATION Reason for Visit TOOTHPAIN Admission February 13, 2025 8:19:[address] [address] Discharge February 13, 2025 8:58:00 PM [facility] DISC HARGED TO HOME OR SELF CARE ENCOUNTER DIAGNOSES Notes information is not saundra ilable. Code System Diagnosis Onset Date Diagnosis information is not available. ABSTRACT DIAGNOSES Code System Diagnosis Updated By K08.89 ICD10 OTHER SPECIFIED DISORDERS OF TEETH AND SUPPORTING STRUCTURES [id number] on February 15, 2025 8:33:06 AM [facility] K02.52 ICD10 DENTAL CARIES ON PIT AND FISSURE SURFACE PENETRATING INTO DENTIN [id number] on February 15, 2025 8:33:06 AM [facility] I10 ICD10 ESSENTIAL (PRIMARY) HYPERTEN JAIDA [id number] on February 15, 2025 8:33:06 AM [facility] Z88.8 ICD10 ALLERGY STATUS T O OTHER DRUGS, MEDICAMENTS AND BIOLOGICAL SUBSTANCES [id number] on February 15, 2025 8:33:06 AM [facility] Z88.6 ICD10 ALLERGY STATUS TO ANALGESIC AGENT [id number] on February 15, 2025 8:33:06 AM [facility] Z88.5 ICD10 ALLERGY STATUS TO NARCOTIC A GENT [id number] on February 15, 2025 8:33:06 AM [facility] Z79.899 ICD10 OTHER SOLE CEMENTER (CURRENT) DR THIEN THERAPY [id number] on February 15, 2025 8:33:06 AM [facility] Z79.82 ICD10 GROUP HOME (CURRENT) USE OF A SPIRIN [id number] on February 15, 2025 8:33:06 AM [facility] CARE TEAM Care Environmental Sustainability Manager Role SIRI SAUCEDO Primary Attending SIRI SAUCEDO Admitting SIRI SAUCEDO Referring FAMILY NO Primary Care CARE TEAM CARE oncology nurse Role on Team Status Start Date End Date Update d By LEWIS LUDWIG Referring normal February 13, 2025 8:40:51 PM UTC February 13, 2025 8:58:00 PM UTC [id number] on February 13, 2025 8:40:51 PM UTC LEWIS LUDWIG Attending normal February 13, 2025 8:40:51 PM UTC February 13, 2025 8:58:00 PM UTC [id number] on February 13, 2025 8:40:51 PM UTC LEWIS LUDWIG Admitting normal February 13, 2025 8:40:51 PM UTC February 13, 2025 8:58:00 PM UTC [id number] on February 13, 2025 8:40:51 PM UTC NO FAMILY PHYSICIAN PCP normal February 13, 2025 8:20:05 PM UTC February 13, 2025 8:58:00 PM UTC [id number] on February 13, 2025 8:40:51 PM UTC
--- OUTSIDE RECORDS SUMMARY | 2025-02-19 05:10 | XMS_ITS | Continuity of Care Document ---
Author Organization [facility] Phone Care Team Providers Care Supervisor Wood Room Name Role Phone LISA SNIDER Admitting Unavailable NO, DEFINED P Unavailable Unavailable LISA SNIDER Primary Attending Unavailable NO, DEFINED P Primary Care Unavailable ALLERGIES AND ADVERSE REACTIONS ALLERGIES AND ADVERSE REACTIONS Code System Allergy Substance Adverse Reaction Date Reaction (Severity) Comment Status Reported By Updated By 3498 RXNorm Benadryl Adverse reaction to substance Not Specified active [id number] on February 16, 2025 7:40:51 AM UTC Tramadol HCl (Free Text Allergy) Adverse reaction to substance Not Specified active [id number] on February 16, 2025 7:40:52 AM UTC Toradol Adverse reaction to substance Not Specified active [id number] on February 16, 2025 7:40:52 AM UTC DENTAL BALLS (Free Text Allergy) Adverse reaction to substance Not Specified active [id number] on February 16, 2025 7:40:52 AM UTC FAMILY HISTORY RELATION: Father Status: LIVING SNOMED-CT Diagnosis Age At Onset [id number] Hypertensive disorder [id number] Deep venous thrombosis RELATION: Mother Status: LIVING SNOMED-CT Diagnosis Age At Onset [id number] Hypertensive disorder [id number] Heart disease MEDICATIONS HOME MEDICATIONS Status RXNORM NDC Medication Dose Route Frequency Dates Comments Reported By Updated By Drug Treatment Unknown DISCHARGE MEDICATIONS Status RXNORM NDC Medication Dose Route Frequency Dates Comments Physician Updated By No Discharge Medication Info rmation Available INPATIENT MEDICATIONS Status RXNORM NDC Medication Dose Route Frequency Rat e Quantity Dates Comments Physician Updated [facility] [id number] 9570 234 ibuprofen (MOTRIN) 400 MG TABS 400.0 MG ORAL ONE TIME ONLY (SCHEDULED DOSE) Start: February 15, 2025 6:59:0 0 PM UTC End: February 15, 2025 6:59:0 0 PM UTC TYLOR Yi INTERFAC ED on February 15, 2025 6:58:00 PM UTC Discont inued [id number] 6484 4012 688 NORCO 5-325 MG TABS 1.0 TAB ORAL ONE TIME ONLY (SCHEDULED DOSE) Start: February 15, 2025 6:59:0 0 PM UT End: February 15, 2025 6:59:0 0 [facility] on February 15, 2025 6:59:00 PM UT Discont inued 997209 4898 1570 801 clindamycin (CLEOCIN) 150 MG CAPS 150.0 MG ORAL ONE TIME ONLY (SCHEDULED DOSE) Start: February 15, 2025 6:59:0 0 PM UT End: February 15, 2025 6:59:0 0 [facility] on February 15, 2025 6:59:00 PM UT SOCIAL HISTORY SOCIAL HISTORY SNOMED-CT Social History Element Description Effective Dates Offered Cessation Comment UpdatedBy [id number] Current Tobacco smoking status Current Every Day Smoker [id number] on February 15, 2025 6:47:27 PM [facility] [id number] Historical Tobacco smoking status Never Smoked [id number] on February 16, 2025 7:41:20 AM [facility] [id number] Historical Tobacco smoking status Smoker, Current Status Unknown [id number] on January 18, 2025 5:15:03 PM [facility] [id number] Historical Tobacco smoking status Unknown If Ever Smoked [id number] on December 17, 2024 12:47:30 AM [facility] SOCIAL HISTORY - Gender Sex: Female SOCIAL [...] for each vital sign as of February 19, 2025 9:10:06 AM [facility] Loinc Code Vital Sign Activity Date Result Updated By 8302-2 Body height February 15, 2025 6:46:13 PM UT 160.02 cm (63.0 in) [id number] on February 15, 2025 6:46:13 PM [facility] 42204-0 Body mass index (BMI ) [Ratio] February 15, 2025 6:46:13 PM UTC 40.029 kg/m2 [id number] on February 15, 2025 6:46:13 PM UTC 3140-1 Body Surface Area Derived From Formula February 15, 2025 6:46:13 PM UTC 2.0368 m2 [id number] on February 15, 2025 6:46:13 PM UTC 38865-9 Body weight Measured February 15 6:46:13 PM UTC 102.5 kg (226.0 lb) [id number] on February 15, 2025 6:46:13 PM UTC 8462-4 Diastolic blood pressure February 15, 2025 6:45:00 PM UTC 64.0 mm[Hg] [id number] on February 15, 2025 6:46:13 PM UTC 8867-4 Heart rate February 15, 2025 7:30:00 PM UTC 66 /min [id number] on February 15, 2025 7:33:29 PM UTC 43685-9 Oxygen saturation in Arterial blood by Pulse oximetry February 15, 2025 7:30:00 PM UTC 98.0 % [id number] on February 15, 2025 7:33:29 PM UTC 9279-1 Respiratory rate February 15, 2025 6:45:00 PM UTC 17 /min [id number] on February 15, 2025 6:46:13 PM UTC 8480-6 Systolic blood pressure February 15, 2025 6:45:00 PM UTC 113.0 mm[Hg] [id number] on February 15, 2025 6:46:13 PM UTC PEDIATRIC GROWTH CHART - VITAL SIGNS This [...] Reason for Visit TOOTH PAIN Admission February 15, 2025 6:24:00 PM UTC [address] [address] Discharge February 15, 2025 7:33:00 PM UTC DISC HARGED TO HOME OR SELF CARE ENCOUNTER DIAGNOSES Notes information is not saundra ilable. Code System Diagnosis Onset Date Diagnosis information is not available. ABSTRACT DIAGNOSES Code System Diagnosis Updated By K08.89 ICD10 OTHER SPECIFIED DISORDERS OF TEETH AND SUPPORTING STRUCTURES [id number] on February 19, 2025 9:09:44 AM [facility] R22.0 ICD10 LOCALIZED SWELLI NG, MASS AND LUMP, HEAD [id number] on February 19, 2025 9:09:44 AM [facility] K04.7 ICD10 PERIAPICAL ABSCESS WITHOUT S INUS [id number] on February 19, 2025 9:09:44 AM [facility] K08.89 ICD10 OTHER SPECIFIED DISORDERS OF TEETH AND SUPPORTING STRUCTURES [id number] on February 19, 2025 9:09:44 AM [facility] G89.29 ICD10 OTHER CHRONIC PAIN [id number] o n February 19, 2025 9:09:44 AM [facility] Z88.1 ICD10 ALLERGY STATUS T O OTHER ANTIBIOTIC AGENTS [id number] on February 19, 2025 9:09:44 AM [facility] Z88.6 ICD10 ALLERGY STATUS TO ANALGESIC AGENT [id number] on February 19, 2025 9:09:44 AM [facility] Z88.5 ICD10 ALLERGY STATUS TO NARCOTIC A GENT [id number] on February 19, 2025 9:09:44 AM [facility] Z72.0 ICD10 TOBACCO USE [id number] on February 19, 2025 9:09:44 AM [facility] Z68.41 ICD10 BODY MASS INDEX [BMI] 40.0-44.9, ADULT [id number] on February 19, 2025 9:09:44 AM [facility] CARE TEAM Care Supervisor Wood Room Role LISA SNIDER Admitting DEFINED NO Referring LISA SNIDER Primary Attending DEFINED NO Primary Care CARE TEAM CARE mangle roller Role on Team Status Start Date End Date Update d By NO DEFINED PRIMARY C Referring normal February 15, 2025 7:05:09 PM [facility] February 15, 2025 7:33:00 PM [facility] [id number] on February 15, 2025 7:05:09 PM [facility] TYLOR Yi Attending normal February 15 7:05:09 PM [facility] February 15, 2025 7:33:00 PM [facility] [id number] on February 15, 2025 7:05:09 PM [facility] TYLOR Yi Admitting normal February 15 7:05:08 PM [facility] February 15, 2025 7:33:00 PM [facility] [id number] on February 15, 2025 7:05:09 PM [facility] NO DEFINED PRIMARY C PCP normal February 15, 2025 6:25:07 PM [facility] February 15, 2025 7:33:00 PM [facility] [id number] on February 15, 2025 7:05:09 PM [facility]
--- OUTSIDE RECORDS SUMMARY | 2025-02-19 07:01 | XMS_ITS | Continuity of Care Document ---
Author Organization [facility] Phone Care Team Providers Care Scallop Raker Name Role Phone AUDREY PLATT Admitting Unavailable NO, DEFINED P Primary Care Unavailable AUDREY PLATT Primary Attending Unavailable NO, DEFINED P Unavailable Unavailable ALLERGIES AND ADVERSE REACTIONS ALLERGIES AND ADVERSE REACTIONS Code System Allergy Substance Adverse Reaction Date Reaction (Severity) Comment Status Reported By Updated By 3498 RXNorm Benadryl Adverse reaction to substance Not Specified active [id number] on February 16, 2025 7:40:51 AM UTC Tramadol HCl (Free Text Allergy) Adverse reaction to substance Not Specified active [id number] on February 16, 2025 7:40:52 AM UTC Toradol Adverse reaction to substance Not Specified active [id number] on February 16, 2025 7:40:52 AM UTC DENTAL BALLS (Free Text Allergy) Adverse reaction to substance Not Specified active [id number] on February 16, 2025 7:40:52 AM UTC FAMILY HISTORY RELATION: Father Status: LIVING SNOMED-CT Diagnosis Age At Onset [id number] Hypertensive disorder [id number] Deep venous thrombosis RELATION: Mother Status: LIVING SNOMED-CT Diagnosis Age At Onset [id number] Hypertensive disorder 44368223 Heart disease MEDICATIONS HOME MEDICATIONS Status RXNORM NDC Medication Dose Route Frequency Dates Comments Reported By Updated By Drug Treatment Unknown DISCHARGE MEDICATIONS Status RXNORM NDC Medication Dose Route Frequency Dates Comments Physician Updated By No Discharge Medication Info rmation Available INPATIENT MEDICATIONS Status RXNORM NDC Medication Dose Route Frequency Rat e Quantity Dates Comments Physician Updated By Candice [facility] [id number] 3731 4012 688 NORCO 5-325 MG TABS 1.0 TAB ORAL ONE TIME ONLY (SCHEDULED DOSE) Start: February 16, 2025 7:54:0 0 AM UTC End: February 16, 2025 7:54:0 0 AM UT GIULIA MCKEON ED on February 16, 2025 7:53:00 AM UT SOCIAL HISTORY SOCIAL HISTORY SNOMED-CT Social History Element Description Effective Dates Offered Cessation Comment UpdatedBy [id number] Current Tobacco smoking status Never Smoked [id number] on February 16, 2025 7:41:20 AM UT [id number] Historical Tobacco smoking status Current Every Day Smoker [id number] on February 15, 2025 6:47:27 PM UTC 06815975 Historical Tobacco smoking status Smoker, Current Status Unknown [id number] on January 18, 2025 5:15:03 PM UT 428942466 Historical Tobacco smoking status Unknown If Ever Smoked [id number] on December 17, 2024 12:47:30 AM UT SOCIAL HISTORY - Gender Sex: Female [...] vital sign as of February 19, 2025 11:01:32 AM [facility] Loinc Code Vital Sign Activity Date Result Updated By 8302-2 Body height February 16, 2025 7:39:58 AM UT 160.02 cm (63.0 in) [id number] on February 16, 2025 7:39:58 [place] [address]-6 Body mass index (BMI ) [Ratio] February 16, 2025 7:39:58 AM UTC 39.053 kg/m2 [id number] on February 16, 2025 7:39:58 AM UT 3140-1 Body Surface Area Derived From Formula February 16, 2025 7:39:58 AM UTC 2.0155 m2 [id number] on February 16, 2025 7:39:58 AM UT 8310-5 Body temperature February 16, 2025 7:59:00 AM UTC 97.8 [degF] [id number] on February 16, 2025 7:59:55 [place] [address]-6 Body weight Measured February 16 7:39:58 AM UTC 100.0 kg (220.0 lb) [id number] on February 16, 2025 7:39:58 AM UT 8462-4 Diastolic blood pressure February 16, 2025 7:59:00 AM UTC 70.0 mm[Hg] [id number] on February 16, 2025 7:59:55 AM UT 8867-4 Heart rate February 16, 2025 7:59:00 AM UTC 76 /min [id number] on February 16, 2025 7:59:[place] [address]-0 Oxygen saturation in Arterial blood by Pulse oximetry February 16, 2025 7:59:00 AM UTC 99.0 % [id number] on February 16, 2025 7:59:55 AM UT 9279-1 Respiratory rate February 16, 2025 7:59:00 AM UTC 18 /min [id number] on February 16, 2025 7:59:55 AM UT 8480-6 Systolic blood pressure February 16, 2025 7:59:00 AM UTC 118.0 mm[Hg] [id number] on February 16, 2025 7:59:55 AM [facility] PEDIATRIC GROWTH CHART - VITAL [...] available. ENCOUNTERS ENCOUNTER INFORMATION Reason for Visit ORAL ABSCESS Admission February 16, 2025 7:29:00 AM [place] [id number] [facility] [address] Discharge February 16, 2025 8:01:00 AM [facility] DISC HARGED TO HOME OR SELF CARE ENCOUNTER DIAGNOSES Notes information is not saundra ilable. Code System Diagnosis Onset Date Diagnosis information is not available. ABSTRACT DIAGNOSES Code System Diagnosis Updated By K08.89 ICD10 OTHER SPECIFIED DISORDERS OF TEETH AND SUPPORTING STRUCTURES [id number] on February 19, 2025 11:00:49 AM [facility] K12.2 ICD10 CELLULITIS AND ABSCESS OF [place] [facility] [id number] on February 19, 2025 11:00:49 AM [facility] K02.9 ICD10 DENTAL CARIES, UNSPECIFIED D [id number] on February 19, 2025 11:00:49 AM [facility] K02.9 ICD10 DENTAL CARIES, UNSPECIFIED D [id number] on February 19, 2025 11:00:49 AM [facility] Z88.1 ICD10 ALLERGY STATUS T O OTHER ANTIBIOTIC AGENTS [id number] on February 19, 2025 11:00:49 AM [place] Z88.5 ICD10 ALLERGY STATUS TO NARCOTIC A GENT [id number] on February 19, 2025 11:00:49 AM [facility] Z88.6 ICD10 ALLERGY STATUS TO ANALGESIC AGENT [id number] on February 19, 2025 11:00:49 AM [facility] CARE TEAM Care Scallop Raker Role AUDREY PLATT Admitting DEFINED NO Primary Care AUDREY PLATT Primary Attending DEFINED NO Referring CARE TEAM CARE leather parts matcher Role on Team Status Start Date End Date Update d By NO DEFINED PRIMARY C Referring normal February 16, 2025 7:38:16 AM [facility] February 16, 2025 8:01:00 AM [facility] [id number] on February 16, 2025 7:38:16 AM [facility] GIULIA LUDWIG Attending normal February 16, 2025 7:38:16 AM [facility] February 16, 2025 8:01:00 AM [facility] [id number] on February 16, 2025 7:38:16 AM [facility] GIULIA LUDWIG Admitting normal February 16, 2025 7:38:16 AM [facility] February 16, 2025 8:01:00 AM [facility] [id number] on February 16, 2025 7:38:16 AM [facility] NO DEFINED PRIMARY C PCP normal February 16, 2025 7:30:01 AM [facility] February 16, 2025 8:01:00 AM [facility] [id number] on February 16, 2025 7:38:16 AM [facility]
--- OUTSIDE RECORDS SUMMARY | 2025-02-21 05:51 | XMS_ITS | Continuity of Care Document ---
Author Organization [facility] Phone Care Team Providers Care Denture Model Maker Name Role Phone NO, FAMILY P Primary Care SIRI SAUCEDO Primary Attending SIRI SAUCEDO Admitting SHANNA NAVARRETE I Unavailable ALLERGIES AND ADVERSE REACTIONS ALLERGIES AND ADVERSE REACTIONS Code System Allergy Substance Adverse Reaction Date Reaction (Severity) Comment Status Reported By Updated By Toradol Adverse reaction to substance Not Specified active [id number] on February 19, 2025 2:38:48 PM UTC Tramadol Adverse reaction to substance Not Specified active [id number] on February 19, 2025 2:38:48 PM UTC 3498 RXNorm Benadryl Adverse reaction to substance Not Specified active [id number] on February 19, 2025 2:38:47 PM UTC Dental balls (Free Text Allergy) Adverse reaction to substance Not Specified active [id number] on February 19, 2025 2:38:48 PM UTC RESULTS Patient: ESVIN Desir Date of : 1995 8 LABORATORY RESULTS Information is not available LABORATORY NARRATIVE RESULTS Information is not available RADIOLOGY RESULTS ORDER 100: CT FACIAL BONES W /O (LOINC: 37884-7) ORDER DATE: February 19, 2025 2:36:00 PM UTC PERFORMING LAB: [address] [id number] Final Result Date: February 19 2:53:16 PM UTC [address] [place] [address] Name: JL MCALLISTER Exam Date: 02/19/2025 : 1995 Age 29 years Gender: F Physician: SHANNA NAVARRETE Facility: [facility] Facility HSV: Outpatient Exam: CT FACIAL BONES W/O CT MAXILLOFACIAL WITHOUT IV CONTRAST, 02/19/2025 9:53 AM CDT INDICATION: Facial Pain w/o Trauma/Injury TECHNIQUE: Axial unenhanced images with sagittal and coronal reformats were obtained through the facial bones. Dose modulation, automated exposure control, and/or iterative reconstruction technique used for dose reduction. Comparison is made to CT of 02/07/2024. FINDINGS: There is normal anatomic alignment of the facial bones without evidence of fracture or dislocation. A 1 x 0.9 cm cystic cutaneous lesion over the left cheek on axial image 40 is new from the previous exam. No surrounding inflammatory stranding is seen in association with this finding. The orbital soft tissues and paranasal sinuses are unremarkable. IMPRESSION: Small left cheek cutaneous cystic lesion. No deep involvement or surrounding inflammatory stranding. Electronically signed by: Edward Perez MD 02/19/2025 11:39 AM EDT Dictated By: Edward Perez Transcribed By: Transcribed On: 02/19/2025 10:53 AM Electronically signed by: Edward Perez 02/19/2025 Thank you for referring JL MCALLISTER to [facility]. Legally authenticated by MARISABEL GILES MD 2025-02-19 10:53:16 PATHOLOGY NARRATIVE RESULTS Information is not available MICROBIOLOGY RESULTS No Micro Labs/Results Exist for Patient BLOOD ADMIN RESULTS Information is not available MEDICATIONS HOME MEDICATIONS Status RXNORM ND Medication Dose Route Frequency Dates Comments Reported By Updated By Active [id number] aspirin 81 mg tablet,chew able 1.0 TAB ORAL DAILY Last Dose: [id number] on February 19, 2025 2:38:49 PM [facility] Active [id number] 5520 bisoprolol fumarate 5 mg tablet 1.0 TAB ORAL DAILY Last Dose: [id number] on February 19, 2025 2:38:49 PM [facility] DISCHARGE MEDICATIONS Status RXNORM NDC Medication Dose Route Frequency Dates Comments Physician Updated By No Discharge Medication Info rmation Available INPATIENT MEDICATIONS Status RXNORM ND Medication Dose Route Frequency Rat e Quantity Dates Comments Physician Updated By Candice inued [id number] 5412 403 ketorolac (TORADOL) 60 MG/2ML SOLN 60.0 MG INTRAM USCULA R ONE TIME ONLY Start: February 19, 2025 2:50:0 0 PM UTC End: February 19, 2025 2:50:0 0 PM [place] LEWIS Friedman MD INTERFAC ED on February 19, 2025 2:49:00 PM [place] SOCIAL HISTORY SOCIAL HISTORY SNOMED-CT Social History Element Description Effective Dates Offered Cessation Comment UpdatedBy [id number] Current Tobacco smoking status Never Smoked [id number] on February 19, 2025 2:39:26 PM UT [id number] Historical Tobacco smoking status Unknown If Ever Smoked [id number] on January 12, 2025 3:18:49 PM UT [id number] Historical Tobacco smoking status Former Smoker [id number] on January 01, 2025 3:09:29 PM UT [id number] Historical Tobacco smoking status Light Tobacco Smoker [id number] on December 24, 2024 10:43:39 PM UT [id number] Historical Tobacco smoking status Current Every Day Smoker [email or web address] on December 11, 2024 8:45:19 PM UT [...] for each vital sign as of February 21, 2025 9:51:02 AM [facility] Loinc Code Vital Sign Activity Date Result Updated By 8310-5 Body temperature February 19, 2025 2: 35:35 PM UT 98.6 [degF] [id number] on February 20, 2025 3:43:45 PM [facility] 8462-4 Diastolic blood pressure February 19, 2025 2:35:35 PM [place] 65.0 mm[Hg] [id number] on February 20, 2025 3:43:45 PM [facility] 8867-4 Heart rate February 19, 2025 2:3 5:35 PM UT 86 /min [id number] on February 20, 2025 3:43:45 PM [facility] 75654-6 Oxygen saturation in Arterial blood by Pulse oximetry February 19, 2025 2:35:35 PM [facility] 99.0 % [id number] on February 20, 2025 3:43:45 PM [facility] 9279-1 Respiratory rate February 19, 2025 2: 35:35 PM UTC 16 /min [id number] on February 20, 2025 3:43:45 PM [facility] 8480-6 Systolic blood pressure February 19, 2025 2:35:35 PM UTC 128.0 mm[Hg] [id number] on February 20, 2025 3:43:45 PM [facility] PEDIATRIC GROWTH CHART - VITAL SIGNS [...] ENCOUNTER INFORMATION Reason for Visit TOOTHACHE Admission February 19, 2025 2:25:[address] [id number] Discharge February 19, 2025 3:43:00 PM [facility] DISC HARGED TO HOME OR SELF CARE ENCOUNTER DIAGNOSES Notes information is not saundra ilable. Code System Diagnosis Onset Date Diagnosis information is not available. ABSTRACT DIAGNOSES Code System Diagnosis Updated By K12.2 ICD10 CELLULITIS AND ABSCESS OF [place] [facility] [id number] on February 21, 2025 9:50:42 AM [facility] K04.7 ICD10 PERIAPICAL ABSCESS WITHOUT S INUS [id number] on February 21, 2025 9:50:42 AM [facility] Z79.82 ICD10 COMMUNITY SERVICE COORDINATOR (CURRENT) USE OF A SPIRIN [id number] on February 21, 2025 9:50:42 AM [facility] Z88.8 ICD10 ALLERGY STATUS T O OTHER DRUGS, MEDICAMENTS AND BIOLOGICAL SUBSTANCES [id number] on February 21, 2025 9:50:42 AM [facility] Z88.6 ICD10 ALLERGY STATUS TO ANALGESIC AGENT [id number] on February 21, 2025 9:50:42 AM [facility] Z88.5 ICD10 ALLERGY STATUS TO NARCOTIC A GENT [id number] on February 21, 2025 9:50:42 AM UTC CARE TEAM Care Denture Model Maker Role FAMILY NO Primary Care SIRI SAUCEDO Primary Attending SIRI SAUCEDO Admitting SHANNA NAVARRETE Referring 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 Role on Team Status Start Date End Date Update d By LANDON VALERO Referring normal February 19 2:49:33 PM UTC February 19, 2025 3:43:00 PM UTC [id number] on February 19, 2025 2:49:33 PM UTC LEIWS LUDWIG Attending normal February 19, 2025 2:49:33 PM UTC February 19, 2025 3:43:00 PM UTC [id number] on February 19, 2025 2:49:33 PM UTC LEWIS LUDWIG Admitting normal February 19, 2025 2:49:33 PM UTC February 19, 2025 3:43:00 PM UTC [id number] on February 19, 2025 2:49:33 PM [place] NO FAMILY PHYSICIAN PCP normal February 19, 2025 2:25:25 PM UTC February 19, 2025 3:43:00 PM UTC [id number] on February 19, 2025 2:49:33 PM UTC
[2025-03-15 14:22] VITALS: BP 143/102; PULSE 79; RESP 19; TEMP 37; O2SAT 99; BMI 38.9
[2025-03-15] MEDS: LIDOCAINE 2% VISCOUS SOL 15ML UDC 15 ML PO (14:30)
[2025-03-15] MEDS: ACETAMINOPHEN 500MG TAB 1000 MG PO (14:30)
--- NOTE | 2025-03-15 14:30 | ED_ITS ---
Discharge Plan Disposition Patient Disposition: Home, Self-Care Condition: Good Prescriptions Prescriptions: New acetaminophen 500 mg capsule 500 mg PO Q6H PRN (Reason: pain) 7 Days Qty: 28 0RF doxycycline monohydrate 100 mg capsule 100 mg PO BID 7 Days Qty: 14 0RF No Action ibuprofen 800 mg tablet 800 mg PO Q8H Qty: 20 0RF omeprazole 40 mg capsule,delayed release(DR/EC) 40 mg PO DAILY Qty: 30 2RF aspirin 81 mg tablet,delayed release (DR/EC) See Rx Instructions .ROUTE .COMPLEX Qty: 30 0RF Dose Instruction: TAKE 1 TABLET BY MOUTH ONCE DAILY FOR HEART HEALTH Rx Instructions: TAKE 1 TABLET BY MOUTH ONCE DAILY FOR HEART HEALTH bisoprolol fumarate 5 mg tablet 5 mg PO DAILY Rx Instructions: TAKE 1 TABLET BY MOUTH ONCE DAILY FOR HYPERTENSION ibuprofen 800 mg tablet 800 mg PO Q8H PRN (Reason: pain) Qty: 12 0RF ondansetron 4 mg tablet,disintegrating 4 mg PO Q8H PRN (Reason: nausea and vomiting) 4 Days Qty: 12 0RF ibuprofen 800 mg tablet 800 mg PO Q8H PRN (Reason: pain) Qty: 20 0RF chlorhexidine gluconate 2 % liquid 1 applic topical DAILY Qty: 118 0RF Rx Instructions: Cleanse affected area daily. clindamycin phosphate 1 % gel, once daily 1 applic topical DAILY Qty: 75 0RF Rx Instructions: Apply to affected area daily. sulfamethoxazole-trimethoprim [Bactrim DS] 800-160 mg tablet 1 tab PO BID 7 Days Qty: 14 0RF clindamycin HCl 300 mg capsule 300 mg PO Q8H 7 Days Qty: 21 0RF Referrals Follow up/Referrals: Provider,Referral, MD [Primary Care Provider, Medical] - See instructions Activity Restrictions/Add. Instructions Additional Instructions/Restrictions: Today you were evaluated in the emergency department for dental pain. Please follow-up with walk-in dental clinic. Please take the doxycycline as directed, use the acetaminophen prescribed for pain. Please return to the ED for worsening of condition. Clinical Impressions Clinical Impression: Chronic dental pain Instructions Patient Instructions: DI for Dental Pain Print Language Print Language: Lithuanian Discharge ED Provider: Qamar Cadena General Adult HPI <Marlin Serrato APRN - Last Filed: 03/15/25 14:43> General Chief complaint: Dental/Oral Stated complaint: tooth and jaw pain Time Seen by Provider: 03/15/25 14:20 Mode of Arrival: Ambulatory Source of Information: Patient Description of Symptoms (Recalled from ER Triage Doc. by RN): Patient presents to ED from home with c/o right lower dental pain. States she was due to have all her teeth pulled but they stopped taking her insurance, states she is now scheduled to have them removed at next week. History of Present Illness HPI narrative: patient is a 29-year-old female PMHx chronic dental pain who was seen in the ED multiple times for the same complaint. Patient again states that she is having trouble with her insurance and is scheduled to have a dental appointment this coming Wednesday. Related Data Home Medications ?Medication ?Instructions ?Recorded ?Confirmed bisoprolol fumarate 5 mg tablet 5 mg PO DAILY 07/18/24 12/03/24 Previous Rx's ?Medication ?Instructions ?Recorded ibuprofen 800 mg tablet 800 mg PO Q8H #20 tabs 10/31 omeprazole 40 mg capsule,delayed 40 mg PO DAILY #30 ca ps 11/23/24 release aspirin 81 mg tablet,delayed See Rx Instructions .Rout e 12/12/24 release .COMPLEX #30 tabs ibuprofen 800 mg tablet 800 mg PO Q8H PRN pain #12 t abs 12/15/24 ondansetron 4 mg disintegrating 4 mg PO Q8H PRN nausea and 12/15/24 tablet vomiting 4 days #12 tabs ibuprofen 800 mg tablet 800 mg PO Q8H PRN pain #20 t abs 12/30/24 chlorhexidine gluconate 2 % 1 applic topical DAILY #11 8 mL 01/09/25 topical liquid clindamycin phosphate 1 % topical 1 applic topical SUMMER LY #75 mL 01/09/25 gel, once daily sulfamethoxazole 800 1 tab PO BID 7 days #14 tabs 01/09/25 mg-trimethoprim 160 mg tablet (Bactrim DS) clindamycin HCl 300 mg capsule 300 mg PO Q8H 7 days #2 1 caps 02/04/25 acetaminophen 500 mg capsule 500 mg PO Q6H PRN pain 7 days #28 03/15/25 caps doxycycline monohydrate 100 mg 100 mg PO BID 7 days #1 4 caps 03/15/25 capsule Allergies Allergy/AdvReac Type Severity Reaction Status Date / Time ketorolac (From TORADOL) Allergy Mild Hives Verified 12/03/24 12:39 tramadol (TRAMADOL) Allergy Mild Hives Verified 12/03/24 12:39 diphenhydramine (From Allergy Unknown I-HIVES Verified 12/03/24 12:39 BENADRYL) [facility] <Marlin Serrato APRN - Last Filed: 03/15/25 14:43> [facility] Disclaimer: The information contained in this section may have been updated after the patient was seen, as this information can be updated by other users. Medical History Thyromegaly Chronic GERD Globus sensation Kidney stones Patient left without being seen Postoperative pain Otitis media Abdominal pain Foot callus Cellulitis Patient left without being seen Trichomonal vaginitis Postoperative abdominal pain Dysmenorrhea Menorrhagia Right lower quadrant pain Dysfunctional uterine bleeding Flank pain Palpitations SOB (shortness of breath) Concussion without loss of consciousness Microhematuria Acute right flank pain Degenerative joint disease (DJD) of lumbar spine Patient left without being seen Otitis externa Lumbar disc disease Tachycardia Back pain Dyspnea Chest pain Atypical chest pain Ovarian cyst Trichomonal cystitis Abdominal pain of unknown etiology Bilious vomiting Vomiting Closed fracture of tuft of distal phalanx of finger Pelvic pain UTI (urinary tract infection) Renal colic on left side Endometriosis Surgical History Hx of tonsillectomy History of cholecystectomy History of appendectomy H/O hysterectomy with oophorectomy [place] teeth extracted S/P appendectomy S/P hysterectomy Family History Mother Diabetes Hypertension Grandmother Cancer Father Cancer Hypertension Diabetes Social History Smoking Status: Current every day smoker tobacco type: cigarettes packs per day: 1 alcohol intake: never counseling provided: none substance use type: denies use current occupational status: employed and other Travel in the last 8 weeks?: None household members: spouse housing: house current occupational exposures/hazards: No caffeine: Yes Have you lived/traveled outside US in past 30 days?: No Contact w/someone who lives/traveled outside US past 30 days?: No Exposure to someone with infectious disease in past 14 days?: No Do you have a fever (greater than 100.4 F or 38 C)?: No Have you tested positive for COVID-19?: No Exposed to someone with COVID-19 in past 14 days?: No Do you have a sore throat?: No Do you have a cough?: No Do you have any weakness?: No Do you have any diarrhea?: No Are you experiencing any unusual bleeding?: No Do you have any muscle aches/pain?: No Do you have any abdominal pain?: No Are you experiencing loss of taste or smell?: No Other Medical History Have you received the Flu Vaccine for this season: No Have you received the Pneumonia Vaccine: No <Marlin Serrato APRN - Last Filed: 03/15/25 14:43> ROS Obtained: Yes Systems reviewed as appropriate & no additional complaints except as documented Physical Exam <Marlin Serrato APRN - Last Filed: 03/15/25 14:43> General General appearance: alert and in no apparent distress Head Head exam: atraumatic and normocephalic Eye Eye exam: Present normal appearance and PERRL ENT ENT exam: Present other (Very poor dental health, multiple teeth missing, multiple cavities, poor dental hygiene) Neck Neck exam: Present normal inspection, full ROM and trachea midline; Absent tenderness Chest Chest inspection: Present normal inspection and symmetric chest wall rise; Absent tenderness Respiratory Respiratory exam: Present normal lung sounds bilaterally Cardiovascular Cardiovascular exam: Present regular rate Abdominal Exam Abdominal exam: Present soft and normal bowel sounds; Absent tenderness Extremities Exam Extremities exam: Present normal inspection and full ROM Back Exam Back exam: Present normal inspection and full ROM Neurological Exam Neurological exam: Present alert and oriented X3 Psychiatric Psychiatric exam: Present normal affect and normal mood Skin Skin exam: Present warm and dry Medical Decision Making <Marlin Serrato APRN - Last Filed: 03/15/25 14:43> Medical Records Screening: Per USPSTF and CDC recommendations, given the prevalence of disease in our region, it is our hospital?s policy to screen for HIV and viral Hepatitis for all patients aged 18 and over and those with ongoing risk factors. Aram Inquiry Pt receiving controlled substance: No Vital Signs: 03/15/25 14:22 03/15/25 14:38 Temperature 98.6 F 98.6 F Temperature Source Oral Oral Pulse Rate 87 Pulse Rate [Left] 79 Respiratory Rate 19 19 Blood Pressure 140/94 H Blood Pressure [Right Arm] 143/102 H Blood Pressure Mean [Right Arm] 115 Blood Pressure Source [Right Arm] Automatic Cuff Blood Pressure Position Sitting Blood Pressure Position [Right Arm] Sitting 02 Sat by Pulse Oximetry 99 Oxygen Delivery Method Room Air Room Air Orders (Tests/Meds): ED MEDICATIONS Discontinued Medications Generic Name Dose Route Start Last Admin Trade Name Alexandria PRN Reason Stop Dose Admin Acetaminophen 1,000 mg 03/15/25 14:25 03/15/25 14:30 Acetaminophen 500mg Tab PO 03/15/25 14:26 1,000 mg ONCE ONE Administration Lidocaine HCl 15 ml 03/15/25 14:25 03/15/25 14:30 Lidocaine 2% Viscous Daisha 15ml Udc PO 03/15/25 14:26 15 ml ONCE ONE Administration Medical Decision Narrative: In summary, patient is a 29-year-old female PMHx chronic dental pain who was seen in the ED multiple times for the same complaint. Patient again states that she is having trouble with her insurance and is scheduled to have a dental appointment this coming Wednesday. She states her other appointments were canceled. She adds that she recently completed Augmentin, does not like the antibiotic clindamycin as she states it does not help with her dental pain. She states that she feels like she is developing an abscess in her right upper molar. Patient states she cannot take NSAIDs for pain. Upon initial evaluation patient is alert, oriented and cooperative. She is obese, has multiple dental caries, multiple missing teeth, poor dental health in general. She has generalized right upper molar tenderness, no erythema other than surrounding gum area. No swelling. No edema of the neck denies fever, chills, body aches, neck stiffness, chest pain, shortness of breath. I offered the patient a dental block and she declined. I discussed with her that she can always use the walk-in dental clinic. Advised that clindamycin or Augmentin would be a better choice for antibiotics, however since she declines those we can try doxycycline. Advised her use acetaminophen for pain control and I sent a prescription for this to the pharmacy. We gave her lidocaine tooth balls. Advised her to follow-up with dentistry. Return to the ED for worsening of condition. <Qamar Cadena MD - Last Filed: 07/03/25 15:27> Vital Signs: 03/15/25 14:22 03/15/25 14:38 Temperature 98.6 F 98.6 F Temperature Source Oral Oral Pulse Rate 87 Pulse Rate [Left] 79 Respiratory Rate 19 19 Blood Pressure 140/94 H Blood Pressure [Right Arm] 143/102 H Blood Pressure Mean [Right Arm] 115 Blood Pressure Source [Right Arm] Automatic Cuff Blood Pressure Position Sitting Blood Pressure Position [Right Arm] Sitting 02 Sat by Pulse Oximetry 99 Oxygen Delivery Method Room Air Room Air Orders (Tests/Meds): ED MEDICATIONS Discontinued Medications Generic Name Dose Route Start Last Admin Trade Name Alexandria PRN Reason Stop Dose Admin Acetaminophen 1,000 mg 03/15/25 14:25 03/15/25 14:30 Acetaminophen 500mg Tab PO 03/15/25 14:26 1,000 mg ONCE ONE Administration Lidocaine HCl 15 ml 03/15/25 14:25 03/15/25 14:30 Lidocaine 2% Viscous Daisha 15ml Udc PO 03/15/25 14:26 15 ml ONCE ONE Administration Medical Decision Narrative: In summary, patient is a 29-year-old female PMHx chronic dental pain who was seen in the ED multiple times for the same complaint. Patient again states that she is having trouble with her insurance and is scheduled to have a dental appointment this coming Wednesday. She states her other appointments were canceled. She adds that she recently completed Augmentin, does not like the antibiotic clindamycin as she states it does not help with her dental pain. She states that she feels like she is developing an abscess in her right upper mola r. Patient states she cannot take NSAIDs for pain. Upon initial evaluation patient is alert, oriented and cooperative. She is obese, has multiple dental caries, multiple missing teeth, poor dental health in general. She has generalized right upper molar tenderness, no erythema other than surrounding gum area. No swelling. No edema of the neck denies fever, chills, body aches, neck stiffness, chest pain, shortness of breath. I offered the patient a dental block and she declined. I discussed with her that she can always use the walk-in dental clinic. Advised that clindamycin or Augmentin would be a better choice for antibiotics, however since she declines those we can try doxycycline. Advised her use acetaminophen for pain control and I sent a prescription for this to the pharmacy. We gave her lidocaine tooth balls. Advised her to follow-up with dentistry. Return to the ED for worsening of condition. I was consulted by the JOVANNY, and we discussed the complexity of the problems being addressed. I approve the treatment and management plan for this patient's care in the emergency department, thus performing a substantive portion of the medical decision making. Qamar Cadena MD Critical Care <Marlin Serrato, [employer] BPM DEVELOPER - Last Filed: 03/15/25 14:43> Critical Care Time Critical Care Time: No
--- OUTSIDE RECORDS SUMMARY | 2025-03-15 14:35 | XMS_ITS | Clinical Summary ---
Author Organization [employer] ([place], [place], [place], [place]) Address [address] [place] [address] Care Team Providers Care Assistant Manager Retail Name Role Phone Unavailable Primary Care Provider Unavailabl e Allergies Active Allergy Reactions Criticality Noted Date Comments Diphenhydramine Hcl Hives High 08/08/2018 Ketorolac Tromethamine Hives High 08/08/2018 Tramadol Hives High 08/08/2018 Medications No known medications Active Problems No known active problems Social History Tobacco Use Types Packs/Day Years Used Date Smoking Tobacco: Every Day Cigarettes Passive Smoke Exposure: Current Smokeless Tobacco: Current Tobacco Cessation:Ready to Q uit: Not Asked; Counseling Given: Not Answered Alcohol Use Standard Drinks/Week Comments Not Currently 0 (1 standard drink = 0.6 oz pur e alcohol) Food Insecurity Answer Date Recorded Food run out past 12 months Not on file 01/12 Food did not last past 12 months Not on file 02/02/2024 Employment Answer Date Recorded Help finding and keeping a job Not on file 0 02/02/2024 Family and Community Support Answer Edmund e Recorded Help with Day to Day Activities Not on file 02/02/2024 Feeling Lonely or Isolated Not on file 02/01 Educational Attainment Answer Date Tashi rded Speak language other than Ugandan at home Not on file 02/02/2024 Want help with school or training Not on file 02/02/2024 Substance Use Answer Date Recorded Used prescription meds for non-medical reasons N ot on file 02/02/2024 Used illegal drugs past 12 months Not on file 02/02/2024 Comments Unknown Sex and Gender Information Value Date Recorded Sex Assigned at Not on file Legal Sex Female 6:20 PM CDT Gender Identity Not on file Sexual Orientation Not on file Last Filed Vital Signs Vital Sign Reading Time Taken Comments Blood Pressure 118/76 01/23/2024 4:51 PM EDT Pulse 80 01/23/2024 5:40 PM EDT Temperature 36.7 C (98.1 F) 01/23/2024 4:51 PM EDT Respiratory Rate 16 01/23/2024 5:40 PM EDT Oxygen Saturation 100% 01/23/2024 5:40 PM EDT Inhaled Oxygen Concentration - - Weight 104.3 kg (230 lb) 01/23/2024 4:51 PM EDT Height 165.1 cm (5' 5 ) 01/23/2024 4:51 PM EDT Body Mass Index 38.27 01/23/2024 4:51 PM EDT Plan of Treatment Health Maintenance Due Date Last Done Comments Depression Screening (12+) 2007 HIV Screening 2010 Hepatitis C Screening 2013 DTAP/TDAP/TD VACCINES (1 - Tdap) 2014 Pneumococcal Vaccine: 0-49 Years (1 of 2 - PCV) 2013 Lipid Panel 2015 Pap Smear 2016 COVID-19 VACCINE (1 - season) 2024 Tobacco Cessation Counseling and Screening (12+) 01/2201/23/2024 Influenza Vaccine (#1) 2025
--- OUTSIDE RECORDS SUMMARY | 2025-03-15 14:35 | XMS_ITS | Data Portability ---
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 nephrolithiasis with recent R flank pain that is intermittent in nature. CT on 09/20/24 at [facility] showed bilateral renal stones that were non-obstructing. PCP note reviewed from 07/31/24. CT report reviewed from 09/20/24. Dejon Simons Jr, MD [address] [place] [address], [address], [place], [address], [facility] & [place] 10/22/2024 21:35:45 5 text/html Patient is a 29-year-old white female with history of nephrolithiasis. She was seen a couple weeks ago where a CT scan showed nonobstructing stones. Can having some increased pain on her right side 2 days ago and presented to the emergency room at [facility]. CT scan was repeated and it showed 4 mm stone in the distal right ureter with mild right-sided hydro ureteral nephrosis. Patient was discharged home with antibiotics, Flomax and pain medication. She returns today and states she is continued to have some discomfort since her discharge. States she has been straining her urine and has not passed the stone yet. She denies any fevers or chills. Dejon Simons Jr, MD [address] [facility] [address], [address], [place], [address], [facility] & [place] 10/04/2024 13:08:00 5 text/html 10/17/24 29 year-old female presents to clinic for new patient kidney stone. The patient was seen at [facility] where CT on 10/02/2024 showed a 4 mm obstructing stone in the right UVJ. She was initially scheduled for surgery with Dr. Simons at [facility], however, the patient was not able to make that date. Outside records indicate that she would not be able to follow up there as Dr. Simons was going to be out of town. 10/02/24 CT ([facility]): 4 mm R UVJ que RODAS MD [address] [facility], [place], [address], [facility] [place] & [place] 10/17/2024 10:55:36 OBGyn Episode No OBEpisode recorded.
--- OUTSIDE RECORDS SUMMARY | 2025-03-15 14:35 | XMS_ITS | Referral Summary ---
Author Organization [employer] ([place], [place], [place], [place]) Address [address] [place] [address] Care Team Providers Care Chief Passenger Ship Steward/Stewardess Name Role Phone Unavailable Primary Care Provider [...] Date Tashi rded Speak language other than Serbian at home Not on file 02/02/2024 Want [...] 01/23/2024 4:51 PM EDT Plan of Treatment Not on file
[2025-03-15 14:38] VITALS: BP 140/94; PULSE 87; RESP 19; TEMP 37; O2SAT 98
== END 2025-03-15 14:40 | disposition home or self-care (01) ==
LOC: ER 14:34
PROVIDERS: Emergency Provider Student in an Organized Health Care Education/Training Program
DX: K08.89 Other specified disorders of teeth and supporting structures (principal); F17.210 Nicotine dependence, cigarettes, uncomplicated
CPT/HCPCS: 99283

== ENCOUNTER 2025-03-25 11:02 | Emergency (ER) | payer OTHER, SELFPAY ==
[2025-03-25] VITALS (13 sets, daily range): BP systolic 115–136; BP diastolic 76–115; PULSE 71–102; RESP 16–19; TEMP 36.6–36.9; O2SAT 97–100; BMI 38.9
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
--- OUTSIDE RECORDS SUMMARY | 2025-03-25 11:13 | XMS_ITS | Clinical Summary ---
Author Organization [employer] ([place], [place], [place], [place] Address [address] [place] [address] Care Team Providers Care Client Project Coordinator Name Role Phone Unavailable Primary Care Provider [...] Date Tashi rded Speak language other than Icelandic at home Not on file 02/02/2024 Want [...]
--- OUTSIDE RECORDS SUMMARY | 2025-03-25 11:13 | XMS_ITS | Referral Summary ---
Author Organization [employer] ([place], [place], [place], [place]) Address [address] [place] [address] Care Team Providers Care Customer Advocate Name Role Phone Unavailable Primary Care Provider [...] Date Tashi rded Speak language other than Togolese at home Not on file 02/02/2024 Want [...]
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
[2025-03-25] MEDS: METHOCARBAMOL 500MG TABLET 500 MG PO (11:43)
--- NOTE | 2025-03-25 11:57 | HMH.EDGENADL ---
Discharge Plan Disposition Patient Disposition: Home, Self-Care Condition: Good Prescriptions Prescriptions: No Action ibuprofen 800 mg tablet 800 mg PO Q8H Qty: 20 0RF omeprazole 40 mg capsule,delayed release(DR/EC) 40 mg PO DAILY Qty: 30 2RF aspirin 81 mg tablet,delayed release (DR/EC) See Rx Instructions .ROUTE .COMPLEX Qty: 30 0RF Dose Instruction: TAKE 1 TABLET BY MOUTH ONCE DAILY FOR HEART HEALTH Rx Instructions: TAKE 1 TABLET BY MOUTH ONCE DAILY FOR HEART HEALTH bisoprolol fumarate 5 mg tablet 5 mg PO DAILY Rx Instructions: TAKE 1 TABLET BY MOUTH ONCE DAILY FOR HYPERTENSION ibuprofen 800 mg tablet 800 mg PO Q8H PRN (Reason: pain) Qty: 12 0RF ondansetron 4 mg tablet,disintegrating 4 mg PO Q8H PRN (Reason: nausea and vomiting) 4 Days Qty: 12 0RF ibuprofen 800 mg tablet 800 mg PO Q8H PRN (Reason: pain) Qty: 20 0RF chlorhexidine gluconate 2 % liquid 1 applic topical DAILY Qty: 118 0RF Rx Instructions: Cleanse affected area daily. clindamycin phosphate 1 % gel, once daily 1 applic topical DAILY Qty: 75 0RF Rx Instructions: Apply to affected area daily. sulfamethoxazole-trimethoprim [Bactrim DS] 800-160 mg tablet 1 tab PO BID 7 Days Qty: 14 0RF acetaminophen 500 mg capsule 500 mg PO Q6H PRN (Reason: pain) 7 Days Qty: 28 0RF doxycycline monohydrate 100 mg capsule 100 mg PO BID 7 Days Qty: 14 0RF clindamycin HCl 300 mg capsule 300 mg PO Q8H 7 Days Qty: 21 0RF Referrals Follow up/Referrals: Provider,Referral, MD [Primary Care Provider, Medical] - See instructions Activity Restrictions/Add. Instructions Additional Instructions/Restrictions: You were evaluated in the emergency department today. Your CT scans are normal. Ice the area as needed for pain. Take Tylenol and ibuprofen as needed for pain. Follow-up outpatient with primary care and your dentist. Clinical Impressions Clinical Impression: Jaw pain Instructions Patient Instructions: DI for Chronic Pain -- Adult, DI for Acute Pain -- Adult Print Language Print Language: Grenadian Discharge ED Provider: [facility] HPI General Chief complaint: PAIN Stated complaint: A/O 10:30 Hit in face with Golf Ball R Jaw Pain Time Seen by Provider: 03/25/25 11:08 Mode of Arrival: Ambulatory Source of Information: Patient Description of Symptoms (Recalled from ER Triage Doc. 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 States she feels like her jaw is drawing up , notes ongoing dental issues. 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 History of Present Illness HPI narrative: This patient is a 29-year-old female very well-known to the emergency department with chronic dental pain presenting to the emergency department for evaluation with concern for right-sided jaw pain. Patient reports that prior to arrival, she was playing golf with her nephew when he hit a golf ball, which struck her in the right jaw. She states she has pain in her right jaw and feels like her muscles are tightening up. No other concerns or complaints. She did not lose consciousness. She took Tylenol prior to arrival with no improvement. Related Data Home Medications ?Medication ?Instructions ?Recorded ?Confirmed bisoprolol fumarate 5 mg tablet 5 mg PO DAILY 07/18/24 12/03/24 Previous Rx's ?Medication ?Instructions ?Recorded ibuprofen 800 mg tablet 800 mg PO Q8H #20 tabs 10/31/24 omeprazole 40 mg capsule,delayed 40 mg PO DAILY #30 caps 11/23/24 release aspirin 81 mg tablet,delayed See Rx Instructions .Route 12/12/24 release .COMPLEX #30 tabs ibuprofen 800 mg tablet 800 mg PO Q8H PRN pain #12 tabs 12/15/24 ondansetron 4 mg disintegrating 4 mg PO Q8H PRN nausea and 12/15/24 tablet vomiting 4 days #12 tabs ibuprofen 800 mg tablet 800 mg PO Q8H PRN pain #20 tabs 12/30/24 chlorhexidine gluconate 2 % 1 applic topical DAILY #118 mL 01/09/25 topical liquid clindamycin phosphate 1 % topical 1 applic topical DAILY #75 mL 01/09/25 gel, once daily sulfamethoxazole 800 1 tab PO BID 7 days #14 tabs 01/09/25 mg-trimethoprim 160 mg tablet (Bactrim DS) clindamycin HCl 300 mg capsule 300 mg PO Q8H 7 days #21 caps 02/04/25 acetaminophen 500 mg capsule 500 mg PO Q6H PRN pain 7 days #28 03/15/25 caps doxycycline monohydrate 100 mg 100 mg PO BID 7 days #14 caps 03/15/25 capsule Allergies Allergy/AdvReac Type Severity Reaction Status Date / Time ketorolac (From TORADOL) Allergy Mild Hives Verified 12/03/24 12:39 tramadol (TRAMADOL) Allergy Mild Hives Verified 12/03/24 12:39 diphenhydramine (From Allergy Unknown I-HIVES Verified 12/03/24 12:39 BENADRYL) [facility] Disclaimer: The information contained in this section may have been updated after the patient was seen, as this information can be updated by other users. Medical History Thyromegaly Chronic GERD Globus sensation Kidney stones Patient left without being seen Postoperative pain Otitis media Abdominal pain Foot callus Cellulitis Patient left without being seen Trichomonal vaginitis Postoperative abdominal pain Dysmenorrhea Menorrhagia Right lower quadrant pain Dysfunctional uterine bleeding Flank pain Palpitations SOB (shortness of breath) Concussion without loss of consciousness Microhematuria Acute right flank pain Degenerative joint disease (DJD) of lumbar spine Patient left without being seen Otitis externa Lumbar disc disease Tachycardia Back pain Dyspnea Chest pain Atypical chest pain Ovarian cyst Trichomonal cystitis Abdominal pain of unknown etiology Bilious vomiting Vomiting Closed fracture of tuft of distal phalanx of finger Pelvic pain UTI (urinary tract infection) Renal colic on left side Endometriosis Surgical History Hx of tonsillectomy History of cholecystectomy History of appendectomy H/O hysterectomy with oophorectomy [place] teeth extracted S/P appendectomy S/P hysterectomy Family History Mother Diabetes Hypertension Grandmother Cancer Father Cancer Hypertension Diabetes Social History Smoking Status: Current every day smoker tobacco type: cigarettes packs per day: 1 alcohol intake: never counseling provided: none substance use type: denies use current occupational status: employed and other Travel in the last 8 weeks?: None household members: spouse housing: house current occupational exposures/hazards: No caffeine: Yes Have you lived/traveled outside US in past 30 days?: No Contact w/someone who lives/traveled outside US past 30 days?: No Exposure to someone with infectious disease in past 14 days?: No Do you have a fever (greater than 100.4 F or 38 C)?: No Have you tested positive for COVID-19?: No Exposed to someone with COVID-19 in past 14 days?: No Do you have a sore throat?: No Do you have a cough?: No Do you have any weakness?: No Do you have any diarrhea?: No Are you experiencing any unusual bleeding?: No Do you have any muscle aches/pain?: No Do you have any abdominal pain?: No Are you experiencing loss of taste or smell?: No Other Medical History Have you received the Flu Vaccine for this season: No Have you received the Pneumonia Vaccine: No ROS Obtained: Yes All systems reviewed & no additional complaints except as documented Physical Exam General General appearance: alert and in no apparent distress Head Head exam: atraumatic and normocephalic Eye Eye exam: Present normal appearance, PERRL and EOMI ENT ENT exam: Present mucous membranes moist, normal external ear exam and other (Very chronic poor dentition without appreciable soft tissue injury or abscess, no significant soft tissue swelling or bruising) Neck Neck exam: Present normal inspection, full ROM and trachea midline; Absent tenderness Chest Chest inspection: Present normal inspection and symmetric chest wall rise; Absent tenderness Respiratory Respiratory exam: Present normal lung sounds bilaterally; Absent respiratory distress, wheezes, stridor or accessory muscle use Cardiovascular Cardiovascular exam: Present regular rate and normal rhythm Abdominal Exam Abdominal exam: Present soft; Absent distention, tenderness or guarding Extremities Exam Extremities exam: Present normal inspection, full ROM and normal capillary refill; Absent tenderness or edema Back Exam Back exam: Present normal inspection and full ROM; Absent tenderness Neurological Exam Neurological exam: Present alert, oriented X3, CN II-XII intact and normal gait; Absent motor sensory deficit Psychiatric Psychiatric exam: Present normal affect and normal mood Skin Skin exam: Present warm and dry Medical Decision Making Medical Records Medical records reviewed: Yes I reviewed the patient's medical records. Screening: Per USPSTF and CDC recommendations, given the prevalence of disease in our region, it is our hospital?s policy to screen for HIV and viral Hepatitis for all patients aged 18 and over and those with ongoing risk factors. Aram Inquiry Pt receiving controlled substance: No Vital Signs: 03/25/25 11:08 03/25/25 11:09 03/25/25 11:15 Temperature 98.5 F Temperature Source Oral Pulse Rate 102 H 101 H Pulse Rate [Left] 102 H Respiratory Rate 19 19 Blood Pressure 136/92 H 126/92 H Blood Pressure [Right Arm] 136/92 H Blood Pressure Mean 98 102 Blood Pressure Mean [Right Arm] 106 Blood Pressure Source Blood Pressure Source [Right Arm] Automatic Cuff Blood Pressure Position Blood Pressure Position [Right Arm] Sitting 02 Sat by Pulse Oximetry 100 100 99 Oxygen Delivery Method Room Air Room Air Room Air 03/25/25 11:30 03/25/25 11:45 03/25/25 11:46 Temperature Temperature Source Pulse Rate 87 87 88 Pulse Rate [Left] Respiratory Rate 19 Blood Pressure 126/89 134/115 H 128/89 Blood Pressure [Right Arm] Blood Pressure Mean 95 120 102 Blood Pressure Mean [Right Arm] Blood Pressure Source Blood Pressure Source [Right Arm] Blood Pressure Position Blood Pressure Position [Right Arm] 02 Sat by Pulse Oximetry 98 98 98 Oxygen Delivery Method Room Air Room Air 03/25/25 12:00 03/25/25 12:15 03/25/25 12:30 Temperature Temperature Source Pulse Rate 89 89 79 Pulse Rate [Left] Respiratory Rate 17 17 Blood Pressure 118/78 121/76 115/79 Blood Pressure [Right Arm] Blood Pressure Mean 91 95 90 Blood Pressure Mean [Right Arm] Blood Pressure Source Blood Pressure Source [Right Arm] Blood Pressure Position Blood Pressure Position [Right Arm] 02 Sat by Pulse Oximetry 97 98 98 Oxygen Delivery Method Room Air Room Air Room Air 03/25/25 12:45 03/25/25 13:00 03/25/25 13:15 Temperature Temperature Source Pulse Rate 77 71 76 Pulse Rate [Left] Respiratory Rate Blood Pressure 136/94 H 136/92 H 135/86 Blood Pressure [Right Arm] Blood Pressure Mean Blood Pressure Mean [Right Arm] Blood Pressure Source Blood Pressure Source [Right Arm] Blood Pressure Position Blood Pressure Position [Right Arm] 02 Sat by Pulse Oximetry 98 98 99 Oxygen Delivery Method Room Air Room Air Room Air 03/25/25 13:34 Temperature 98 F Temperature Source Oral Pulse Rate 71 Pulse Rate [Left] Respiratory Rate 16 Blood Pressure 128/92 H Blood Pressure [Right Arm] Blood Pressure Mean Blood Pressure Mean [Right Arm] Blood Pressure Source Automatic Cuff Blood Pressure Source [Right Arm] Blood Pressure Position Sitting Blood Pressure Position [Right Arm] 02 Sat by Pulse Oximetry Oxygen Delivery Method Room Air Lab Data Lab results reviewed: Yes I reviewed the patient's lab results. Orders (Tests/Meds): ED MEDICATIONS Discontinued Medications Generic Name Dose Route Start Last Admin Trade Name [place] PRN Reason Stop Dose Admin Ketorolac Tromethamine 30 mg 03/25/25 12:45 03/25/25 12:54 Ketorolac 30mg/Ml Vial IM 03/25/25 12:46 30 mg ONCE ONE Administration Methocarbamol 500 mg 03/25/25 11:32 03/25/25 11:43 Methocarbamol 500mg Tablet PO 03/25/25 11:33 500 mg ONCE ONE Administration ORDERS Category Date Time Status CT facial bones wo con Stat Cat Scan 03/25/25 11:[address] head/brain wo con Stat Cat Scan 03/25/25 11:24 Completed Medical Decision Narrative: In summary, this patient is a 29-year-old female presenting to the Emergency Department for evaluation of right-sided jaw pain after being struck in the face by a golf ball. Differential diagnoses considered include but are not limited to fracture, contusion, strain/sprain, pain medication seeking behavior, dental injury. Ruling out the most morbid conditions drove assessment. It should be noted patient's history includes chronic dental pain and poor dentition in the past which is not at goal therapy. This complicates all aspects of care by increasing patient's risk for morbidity. I reviewed patient's past medical records and noted multiple prior ED evaluations for chronic pain requesting pain medication. Patient reports intolerance of NSAIDs and other nonnarcotic medicines. On exam, the patient is sitting upright in no acute distress. She complains of right-sided jaw pain but has no appreciable swelling or bruising. She has no drooling, trismus, or loose teeth. She has chronically poor dentition at baseline. Workup included CT head and face without contrast. She was given oral Robaxin. I independently interpreted CT prior to the radiologist read and noted no acute fracture or intracranial hemorrhage. Please see their read for final interpretation. At this time, I feel the patient is appropriate for discharge with instructions for supportive care of minor injury and instructions for close outpatient follow-up. Strict return precautions given Critical Care Critical Care Time Critical Care Time: No
[2025-03-25] MEDS: KETOROLAC 30MG/ML VIAL 30 MG IM (12:54)
== END 2025-03-25 13:35 | disposition home or self-care (01) ==
PROVIDERS: Emergency Provider Emergency Medicine
DX: R68.84 Jaw pain (principal); F17.210 Nicotine dependence, cigarettes, uncomplicated; W21.04XA Struck by golf ball, initial encounter
CPT/HCPCS: 70450; 70486; 96372; 99285; J1885

== ENCOUNTER 2025-04-02 21:14 | Emergency (ER) | payer OTHER, SELFPAY ==
[2025-04-02 21:30] VITALS: BP 141/82; PULSE 72; RESP 18; TEMP 36.9; O2SAT 100; BMI 38.9
--- OUTSIDE RECORDS SUMMARY | 2025-04-02 21:34 | XMS_ITS | Clinical Summary ---
Author Organization [facility] Address [address] [place] [address] Care Team Providers Care Hog Dropper Name Role Phone Jose Bailey MD Primary Care Provider [phone] Allergies Active Allergy Reactions Criticality Noted Date Comments Diphenhydramine Hcl Hives 08/08/2018 Ketorolac Tromethamine Hives 08/08/2018 Tramadol Hives 08/08/2018 Medications tiZANidine (ZANAFLEX) 4 MG tablet Take 4 mg by mouth At Night As Needed for Muscle Spasms. Active bisoprolol (ZEBeta) 5 MG tablet 8 Active Aspirin Low Dose 81 MG EC tablet Take 81 mg by mouth Daily. 1 Active gabapentin (NEURONTIN) 100 MG capsule TAKE ONE CAPSULE BY MOUTH EVERY 8 HOURS MAY CAUSE DROWSINESS 0 Active HYDROcodone-acet aminophen (NORCO) 5-325 MG per tablet TAKE ONE TABLET BY MOUTH EVERY 8 HOURS NEEDED MAY CAUSE DROWSINESS 0 Active nicotine (NICODERM CQ) 21 MG/24HR patchIndications :Personal history of tobacco use, presenting hazards to health Place 1 patch on the skin as directed by provider Daily. 14 patch 1 1 Active nicotine (NICODERM CQ) 14 MG/24HR patchIndications :Personal history of tobacco use, presenting hazards to health Place 1 patch on the skin as directed by provider Daily. 14 patch 1 1 Active nicotine (NICODERM CQ) 7 MG/24HR patchIndications :Personal history of tobacco use, presenting hazards to health Place 1 patch on the skin as directed by provider Daily. 14 patch 1 1 Active omeprazole (priLOSEC) 40 MG capsuleIndicatio ns:Gastroesophag eal reflux disease, unspecified whether esophagitis present Take 1 capsule by mouth Daily. 30 capsule 5 1 Active Active Problems Problem Noted Date Diagnosed Date Generalized fit 10/18/2020 Degenerative disc disease, lumbar 10/18/2020 Personal history of tobacco use, presenting hazards to health 10/18/2020 GERD (gastroesophageal reflux disease) 1 Family History Medical History Relation Name Comments Diabetes Father Hyperlipidemia Father Hypertension Father Coronary artery disease Mother Hyperlipidemia Mother Hypertension Mother Relation Name Status Comments Father Alive Mother Alive Social History Tobacco Use Types Packs/Day Years Used Date Smoking Tobacco: Every Day Cigarettes 0.5 13 Smokeless Tobacco: Never Tobacco Cessation:Ready to Q uit: Yes; Counseling Given: Yes Alcohol Use Standard Drinks/Week Comments No 0 (1 standard drink = 0.6 oz pur e alcohol) AUDIT-C Answer Date Recorded Q1: How often do you have a drink containing alc ohol? Never 10/18/2020 Average Number of Drinks Not on file 021 Frequency of Binge Drinking Not on file 01/2021 Abuse Screen Answer Date Recorded Unsafe at Home or Work/School Not on file Feels Threatened by Someone? Not on file 05/2023 Does Anyone Keep You from Co ntacting Others or Doint Things Outside the Home? Not on file 06/21/2023 Physical Sign of Abuse Present Not on file 1 Housing Stability Answer Date Recorded Current Living Arrangements Not on file 05/2023 Potentially Unsafe Housing Conditions Not on rita e 06/21/2023 Family and Community Support Answer Edmund e Recorded Help with Day-to-Day Activities Not on file 06/21/2023 Lonely or Isolated Not on file 06/21/2023 Employment Answer Date Recorded Do you want help finding or keeping work or a bhavna b? Not on file 06/21/2023 Disabilities Answer Date Recorded Concentrating, Remembering, or Making Decisions Difficulty Not on file 06/21/2023 Doing Errands Independently Difficulty Not on fi le 06/21/2023 Education Answer Date Recorded Help with school or training? Not on file Preferred Language Not on file 06/21/2023 Comments Unknown Sex and Gender Information Value Date Recorded Sex Assigned at Not on file Legal Sex Female 11:39 AM EDT Gender Identity Not on file Sexual Orientation Not on file Occupation Industry Job Start Date Job End Date unemployed Not on file Not on file Not on file Last Filed Vital Signs Vital Sign Reading Time Taken Comments Blood Pressure 118/82 10/18/2020 10:48 AM EST Pulse 78 10/18/2020 10:48 AM EST Temperature 37.1 C (98.7 F) 10/18/2020 10:48 AM EST Respiratory Rate 18 10/18/2020 10:48 AM EST Oxygen Saturation - - Inhaled Oxygen Concentration - - Weight 107 kg (235 lb) 10/18/2020 10:48 AM EST Height 160 cm (5' 3 ) 10/18/2020 10:48 AM EST Body Mass Index 41.63 10/18/2020 10:48 AM EST Plan of Treatment Health Maintenance Due Date Last Done Comments Annual Gynecologic Pelvic an d Breast Exam 1995 TDAP/TD VACCINES (1 - Tdap) 2014 ANNUAL PHYSICAL 08/08/2018 HEPATITIS C SCREENING 08/08/2018 COVID-19 Vaccine (2023-2 5 season) 2024 INFLUENZA VACCINE 06/13/2025 Pneumococcal Vaccine 0-49 Aged Out No longer eligible based on patient's age to complete this topic Insurance Care Teams Hog Dropper Relationship Specialty Start Date End Date Jose Bailey MD [address] [place] [address] PCP - General Family Medicine 10/18/20
--- OUTSIDE RECORDS SUMMARY | 2025-04-02 21:34 | XMS_ITS | Referral Summary ---
Author Organization [employer] ([place], [place], [place], [place]) Address [address] [place] [address] Care Team Providers Care Revenue Coordinator Name Role Phone Unavailable Primary Care [...] Date Tashi rded Speak language other than Taiwanese at home Not on file 02/02/2024 Want [...]
--- OUTSIDE RECORDS SUMMARY | 2025-04-02 21:34 | XMS_ITS | Clinical Summary ---
Author Organization [employer] ([place], [place], [place], [place]) Address [address] [place] [address] Care Team Providers Care Diabetes Nurse Name Role Phone Unavailable Primary Care Provider [...] Date Tashi rded Speak language other than Mozambican at home Not on file 02/02/2024 Want [...]
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
[2025-04-02] MEDS: TETRACAINE/BENZOCAINE/BUTAMBEN 56 GM SPRAY TP (22:22)
[2025-04-02] MEDS: IBUPROFEN 600 MG TABLET PO (22:22)
[2025-04-02] MEDS: LIDOCAINE 2% VISCOUS SOL 15ML UDC 15 ML PO (22:22)
[2025-04-02] MEDS: ACETAMINOPHEN 500MG TAB 1000 MG PO (22:22)
[2025-04-02 22:28] VITALS: BP 123/81; PULSE 69; RESP 18; TEMP 36.7; O2SAT 98
--- NOTE | 2025-04-02 22:30 | EXP.EVENT.NO ---
Patient checked into the emergency department for evaluation of dental pain pending extraction on antibiotics. I directed nurses to give symptomatic therapy with the medications that were administered prior to my evaluation. Unfortunately prior to my evaluation due to the volume in the emergency department patient signed out AGAINST MEDICAL ADVICE with nursing prior to me seeing her.
== END 2025-04-02 22:34 | disposition left against medical advice (07) ==
PROVIDERS: Emergency Provider Emergency Medicine
DX: Z53.29 Procedure and treatment not carried out because of patient's decision for other reasons (principal); K04.7 Periapical abscess without sinus
CPT/HCPCS: 99211

== ENCOUNTER 2025-04-16 02:11 | Emergency (ER) | payer OTHER, SELFPAY ==
--- OUTSIDE RECORDS SUMMARY | 2025-04-07 17:29 | XMS_ITS | Encounter Summary ---
Author Organization Healthcare Address [address] [place] [address] Care Team Providers Care Production Operations Engineer Name Role Phone Pcp, No Primary Care Provider Unavailabl e Reason for Visit * Reason Comments Dental Pain Encounter Details Date Type Department Care Team (Late st Contact Info) Description 04/07/2025 5:29 PM EDT - 04/07/2025 7:11 PM EDT Emergency [facility] Emergency Department [address] [place] [address] Mary Prater MD [address] [place] [address] Pain, dental (Primary Dx) Discharge [...] appt in 2 days and went to [facility] ER 2 days ago and was prescribed amoxicillin with no missed doses and a narcotic script. Said she ran out of her narcotic yesterday and today she tried APAP without relief. Reports the ER doctor earlier this wk told her to go to the nearest ER if her pain got worse. The patient offers unprompted that she was in [place] today to go to a [employer] baseball game and that is why she [...] behavior No indication of Ludwigs angina, bacteremia, CLASS C TRUCK DRIVER, facial cellulitis, nor ANUG. It is fortunate that she has a dentist appt on the next business day. Per chart review, patient has 17 short course narcotic scripts in the last 7.5 months with mult prescribers. Additionally per [employer], the [place] are playing an away game today in [place], thus it is unlikely that she was [...] RN) documented in this encounter Care Teams Production Operations Engineer Relationship Specialty Start Date End Date Pcp, Alyson [address] [place] [address] PCP - General Family Medicine 04/07/25 documented as of this encounter
--- NOTE | 2025-04-16 02:17 | HMH.EDGENADL ---
Discharge Plan Disposition Patient Disposition: Home, Self-Care Prescriptions Prescriptions: No Action ibuprofen 800 mg tablet 800 mg PO Q8H Qty: 20 0RF omeprazole 40 mg capsule,delayed release(DR/EC) 40 mg PO DAILY Qty: 30 2RF aspirin 81 mg tablet,delayed release (DR/EC) See Rx Instructions .ROUTE .COMPLEX Qty: 30 0RF Dose Instruction: TAKE 1 TABLET BY MOUTH ONCE DAILY FOR HEART HEALTH Rx Instructions: TAKE 1 TABLET BY MOUTH ONCE DAILY FOR HEART HEALTH bisoprolol fumarate 5 mg tablet 5 mg PO DAILY Rx Instructions: TAKE 1 TABLET BY MOUTH ONCE DAILY FOR HYPERTENSION ibuprofen 800 mg tablet 800 mg PO Q8H PRN (Reason: pain) Qty: 12 0RF ondansetron 4 mg tablet,disintegrating 4 mg PO Q8H PRN (Reason: nausea and vomiting) 4 Days Qty: 12 0RF ibuprofen 800 mg tablet 800 mg PO Q8H PRN (Reason: pain) Qty: 20 0RF chlorhexidine gluconate 2 % liquid 1 applic topical DAILY Qty: 118 0RF Rx Instructions: Cleanse affected area daily. clindamycin phosphate 1 % gel, once daily 1 applic topical DAILY Qty: 75 0RF Rx Instructions: Apply to affected area daily. sulfamethoxazole-trimethoprim [Bactrim DS] 800-160 mg tablet 1 tab PO BID 7 Days Qty: 14 0RF acetaminophen 500 mg capsule 500 mg PO Q6H PRN (Reason: pain) 7 Days Qty: 28 0RF doxycycline monohydrate 100 mg capsule 100 mg PO BID 7 Days Qty: 14 0RF clindamycin HCl 300 mg capsule 300 mg PO Q8H 7 Days Qty: 21 0RF Referrals Follow up/Referrals: Provider,Referral, MD [Primary Care Provider, Medical] - See instructions Activity Restrictions/Add. Instructions Additional Instructions/Restrictions: My suspicion is that you may have just passed a small stone. Please follow-up with your primary care provider. Please return to the emergency department if you develop any new or worsening symptoms or become concerned for your health. Clinical Impressions Clinical Impression: Acute flank pain Instructions Patient Instructions: DI for Acute Abdominal Pain Print Language Print Language: Citizen Of The [place] Discharge ED Provider: Camacho Samano General Adult HPI General Chief complaint: Abdominal Pain Stated complaint: abd pain, blood in urine Time Seen by Provider: 04/16/25 02:17 History of Present Illness HPI narrative: 29-year-old female with history of kidney stone presents for flank pain. Reports it was sudden onset while she was playing. Reports that tearing pain and blood in her urine. Reports her last kidney stone had to be surgically removed. Denies any recent fever or infection. Related Data Home Medications ?Medication ?Instructions ?Recorded ?Confirmed bisoprolol fumarate 5 mg tablet 5 mg PO DAILY 07/18/24 12/03/24 Previous Rx's ?Medication ?Instructions ?Recorded ibuprofen 800 mg tablet 800 mg PO Q8H #20 tabs 10/31/24 omeprazole 40 mg capsule,delayed 40 mg PO DAILY #30 caps 11/23/24 release aspirin 81 mg tablet,delayed See Rx Instructions .Route 12/12/24 release .COMPLEX #30 tabs ibuprofen 800 mg tablet 800 mg PO Q8H PRN pain #12 tabs 12/15/24 ondansetron 4 mg disintegrating 4 mg PO Q8H PRN nausea and 12/15/24 tablet vomiting 4 days #12 tabs ibuprofen 800 mg tablet 800 mg PO Q8H PRN pain #20 tabs 12/30/24 chlorhexidine gluconate 2 % 1 applic topical DAILY #118 mL 01/09/25 topical liquid clindamycin phosphate 1 % topical 1 applic topical DAILY #75 mL 01/09/25 gel, once daily sulfamethoxazole 800 1 tab PO BID 7 days #14 tabs 01/09/25 mg-trimethoprim 160 mg tablet (Bactrim DS) clindamycin HCl 300 mg capsule 300 mg PO Q8H 7 days #21 caps 02/04/25 acetaminophen 500 mg capsule 500 mg PO Q6H PRN pain 7 days #28 03/15/25 caps doxycycline monohydrate 100 mg 100 mg PO BID 7 days #14 caps 03/15/25 capsule Allergies Allergy/AdvReac Type Severity Reaction Status Date / Time ketorolac (From TORADOL) Allergy Mild Hives Verified 12/03/24 12:39 tramadol (TRAMADOL) Allergy Mild Hives Verified 12/03/24 12:39 diphenhydramine (From Allergy Unknown I-HIVES Verified 12/03/24 12:39 BENADRYL) [facility] Disclaimer: The information contained in this section may have been updated after the patient was seen, as this information can be updated by other users. Medical History Thyromegaly Chronic GERD Globus sensation Kidney stones Patient left without being seen Postoperative pain Otitis media Abdominal pain Foot callus Cellulitis Patient left without being seen Trichomonal vaginitis Postoperative abdominal pain Dysmenorrhea Menorrhagia Right lower quadrant pain Dysfunctional uterine bleeding Flank pain Palpitations SOB (shortness of breath) Concussion without loss of consciousness Microhematuria Acute right flank pain Degenerative joint disease (DJD) of lumbar spine Patient left without being seen Otitis externa Lumbar disc disease Tachycardia Back pain Dyspnea Chest pain Atypical chest pain Ovarian cyst Trichomonal cystitis Abdominal pain of unknown etiology Bilious vomiting Vomiting Closed fracture of tuft of distal phalanx of finger Pelvic pain UTI (urinary tract infection) Renal colic on left side Endometriosis Surgical History Hx of tonsillectomy History of cholecystectomy History of appendectomy H/O hysterectomy with oophorectomy [place] teeth extracted S/P appendectomy S/P hysterectomy Family History Mother Diabetes Hypertension Grandmother Cancer Father Cancer Hypertension Diabetes Social History Smoking Status: Current every day smoker tobacco type: cigarettes packs per day: 1 alcohol intake: never counseling provided: none substance use type: denies use current occupational status: employed and other Travel in the last 8 weeks?: None household members: spouse housing: house current occupational exposures/hazards: No caffeine: Yes Have you lived/traveled outside US in past 30 days?: No Contact w/someone who lives/traveled outside US past 30 days?: No Exposure to someone with infectious disease in past 14 days?: No Do you have a fever (greater than 100.4 F or 38 C)?: No Have you tested positive for COVID-19?: No Exposed to someone with COVID-19 in past 14 days?: No Do you have a sore throat?: No Do you have a cough?: No Do you have any weakness?: No Do you have any diarrhea?: No Are you experiencing any unusual bleeding?: No Do you have any muscle aches/pain?: No Do you have any abdominal pain?: Yes Are you experiencing loss of taste or smell?: No Other Medical History Have you received the Flu Vaccine for this season: No Have you received the Pneumonia Vaccine: No ROS Obtained: Yes All systems reviewed & no additional complaints except as documented Physical Exam General General appearance: alert and in no apparent distress Head Head exam: atraumatic and normocephalic Eye Eye exam: Present normal appearance, PERRL and EOMI ENT ENT exam: Present normal oropharynx and normal external ear exam Neck Neck exam: Present normal inspection and full ROM Chest Chest inspection: Present normal inspection and symmetric chest wall rise; Absent tenderness Respiratory Respiratory exam: Present normal lung sounds bilaterally; Absent respiratory distress Cardiovascular Cardiovascular exam: Present regular rate and normal rhythm Abdominal Exam Abdominal exam: Present soft; Absent distention, tenderness or guarding Extremities Exam Extremities exam: Present normal inspection; Absent edema or joint swelling Back Exam Back exam: Present normal inspection, tenderness and CVA tenderness (R) Neurological Exam Neurological exam: Present alert and oriented X3; Absent motor sensory deficit Psychiatric Psychiatric exam: Present normal affect and normal mood Skin Skin exam: Present warm, dry and normal color Lymphatic Lymphatic Findings: no adenopathy Medical Decision Making Medical Records Medical records reviewed: Yes I reviewed the patient's medical records. Screening: Per USPSTF and CDC recommendations, given the prevalence of disease in our region, it is our hospital?s policy to screen for HIV and viral Hepatitis for all patients aged 18 and over and those with ongoing risk factors. Aram Inquiry Pt receiving controlled substance: No Aram was queried for this patient: No Vital Signs: 04/16/25 02:32 04/16/25 02:45 04/16/25 02:46 Temperature 98.3 F Temperature Source Oral Pulse Rate 82 Pulse Rate [Left] 117 H Respiratory Rate 16 Blood Pressure 112/78 Blood Pressure [Right Arm] 141/89 H Blood Pressure Mean 92 Blood Pressure Mean [Right Arm] 106 Blood Pressure Source [Right Arm] Automatic Cuff Blood Pressure Position [Right Arm] Sitting 02 Sat by Pulse Oximetry 97 99 Oxygen Delivery Method Room Air Lab Data Lab results reviewed: Yes I reviewed the patient's lab results. Lab Results 04/16/25 02:17: Urine HCG, Qual Negative 04/16/25 02:24: Urine Color Yellow, Urine Appearance Sl cloudy, Urine pH 6.0, Ur Specific [place] 1.025, Urine Protein 1+ A, Urine Glucose (UA) Negative, Urine Ketones Trace, Urine Blood 2+ A, Urine Nitrate Negative, Urine Bilirubin Negative, Urine Urobilinogen 0.2, Ur Leukocyte Esterase 1+ A, Urine RBC 3-5, Urine WBC 5-10, Ur Squamous Epith Cells Occasional, Urine Bacteria Trace 04/16/25 02:28: WBC 8.1, RBC 4.29, Hgb 13.7, Hct 42.7, MCV 99.5 H, MCH 31.9 H, MCHC 32.1, RDW 12.0, Plt Count 334, MPV 10.9 H, Neut % (Auto) 52.7, Lymph % (Auto) 38.4, [place] % (Auto) 7.3, Eos % (Auto) 0.9, Baso % (Auto) 0.5, Neut # (Auto) 4.3, Lymph # (Auto) 3.1, [place] # (Auto) 0.6, Eos # (Auto) 0.1, Baso # (Auto) 0.0, Sodium 141, Potassium 3.1 L, Chloride 105, Carbon Dioxide 26, Anion Gap 13.1, BUN 9, Creatinine 0.80, Estimated GFR 85, Est GFR ( Amer) 103, Glucose 119 H, Calcium 10.0, Total Bilirubin 0.4, AST 27, ALT 20, Alkaline Phosphatase 75, Total Protein 7.6, Albumin 4.7, Globulin 2.9, Albumin/Globulin Ratio 1.6, Lipase 46 04/16/25 02:28 04/16/25 02:28 Orders (Tests/Meds): ED MEDICATIONS Discontinued Medications Generic Name Dose Route Start Last Admin Trade Name Javonq PRN Reason Stop Dose Admin Acetaminophen 1,000 mg 04/16/25 02:19 04/16/25 02:26 Acetaminophen 500mg Tab PO 04/16/25 02:20 1,000 mg ONCE ONE Administration Hydromorphone HCl 1 mg 04/16/25 02:19 04/16/25 02:26 Hydromorphone 2mg/Ml Syringe IV 04/16/25 02:20 1 mg ONCE ONE Administration Iopamidol 75 ml 04/16/25 02:36 04/16/25 02:37 Iopamidol-370 (76%);100ml Bottle IV 04/16/25 02:37 75 ml ONCE ONE Administration Ondansetron HCl 4 mg 04/16/25 02:19 04/16/25 02:26 Ondansetron 4mg/2ml Vial IV 04/16/25 02:20 4 mg ONCE ONE Administration Sodium Chloride 10 ml 04/16/25 02:36 04/16/25 02:37 Sodium Chloride 0.9% 10ml Syr (Rad Only) IV 04/16/25 02:37 10 ml ONCE ONE Administration ORDERS Category Date Time Status CT abdomen pelvis w con Stat Cat Scan 04/16/25 02:19 Completed CBC w/Auto Diff [Complete Blood Count Auto Diff] Stat Lab 04/16/25 02:28 Completed CMP [Comprehensive Metabolic Panel] Stat Lab 04/16/25 02:28 Completed Lipase Stat Lab 04/16/25 02:28 Completed UA [Urinalysis and Microscopic] Stat Lab 04/16/25 02:24 Completed Urine , HCG Qual. Stat Lab 04/16/25 02:17 Completed Urine Culture Stat Micro 04/16/25 02:24 Received Medical Decision Narrative: 29-year-old female with history of kidney stones presents for right flank pain. History was obtained via interactive discussion with patient, chart review. On arrival, patient is [afebrile, hemodynamically stable, satting appropriately, alert, oriented x4, GCS 15], moving all extremities spontaneously. Full physical exam performed and significant for right flank pain Differential includes but is not limited to kidney stone, UTI, pyelonephritis, musculoskeletal pain. Patient was given Zofran Dilaudid fluid bolus for symptomatic management and correction of underlying abnormalities. Workup initiated including CBC CMP UA urine preg CT abdomen pelvis with IV contrast. On re-evaluation, patient reports some symptomatic improvement. Laboratory workup independently interpreted by me and significant for no significant leukocytosis, normal renal function, mild hypokalemia. In the absence of UTI symptoms, I do not think her urinalysis is consistent with acute infection at this time. Imaging independently interpreted by me and significant for no evidence of acute kidney stone, hydronephrosis or other intra-abdominal pathology. See radiology read for full review of final results. Given patient history, exam and workup, patient's presentation most likely represents right flank pain. I think patient likely passed a tiny stone between the time of onset of pain and the time of CT scan. Presentation seems quite consistent with stone, though none was evident on CT. These findings were communicated with the patient and she was discharged in stable condition with return precautions.. Procedures Risk/Benefits of Procedure(s) Were Explained: Yes Critical Care Critical Care Time Critical Care Time: No
--- NOTE | 2025-04-16 02:19 | CT_ITS ---
PROCEDURE INFORMATION: Exam: CT Abdomen And Pelvis With Contrast Exam date and time: 04/16/2025 2:38 AM Age: 29 years old Clinical indication: Abdominal pain; Flank; Other: Bilateral; Additional info: Flank pain HX stones TECHNIQUE: Imaging protocol: Computed tomography of the abdomen and pelvis with contrast. Radiation optimization: All CT scans at this facility use at least one of these dose optimization techniques: automated exposure control; mA and/or kV adjustment per patient size (includes targeted exams where dose is matched to clinical indication); or iterative reconstruction. Contrast material: ISOVUE; Contrast volume: 75 ml; Contrast route: IV; COMPARISON: CT ABDOMEN PELVIS WO CON 10/02/2024 9:00 PM FINDINGS: Lungs: Right lung base granuloma. Lung base atelectasis. Heart: Base of heart is unremarkable as visualized. Liver: Normal. No mass. Gallbladder and biliary ducts: Status post cholecystectomy. Pancreas: Normal. No ductal dilation. Spleen: Normal. No splenomegaly. Adrenal glands: Normal. No mass. Kidneys and ureters: Bilateral nonobstructive nephrolithiasis. Stomach and bowel: Unremarkable. No obstruction. No mucosal thickening. Appendix: Appendix appears absent. Intraperitoneal space: Unremarkable. No free air. No significant fluid collection. Vasculature: Pelvic phleboliths are seen. Lymph nodes: Unremarkable. No enlarged lymph nodes. Urinary bladder: Unremarkable as visualized. Reproductive: Status post hysterectomy. Bones/joints: Unremarkable. No acute fracture. Soft tissues: Unremarkable. IMPRESSION: 1. No acute intra-abdominal findings. 2. Nonobstructive nephrolithiasis.
--- OUTSIDE RECORDS SUMMARY | 2025-04-16 02:20 | XMS_ITS | Encounter Summary ---
Author Organization Healthcare Address [address] [place] [address] Care Team Providers Care Merchandise Flow Team Leader Name Role Phone Pcp, No Primary Care Provider Unavailabl e Encounter Details Date Type Department Care Team (Latest Contact Info) Description 04/07/2025 Travel Social History Tobacco Use Types Packs/Day Years Used Date Smoking Tobacco: Never Assessed Comments Unknown Sex and Gender Information Value Date Recorded Sex Assigned at Not on file Legal Sex Female 7:04 PM EDT Gender Identity Not on file Sexual Orientation Not on file documented as of this encounter Functional Status * Calculated C-SSRS Risk Score (Lifetime/Recent) Answer Date of Assessment Author No Risk Indicated 04/07/2025 6:00 PM EDT Luigi Hawley RN * Question Answer Date of Assessment Author 1. Wish to be (Past 1 Month) No 04/07/2025 6:00 PM EDT Luigi Hawley, RN 2. Non-Specific Active Suici gamal Thoughts (Past 1 Month) No 04/07/2025 6:00 PM EDT Junior Hawley RN 6. Suicidal Behavior (Lifetime) No 6:00 PM EDT Luigi Hawley, RN documented as of this encounter Plan of Treatment Not on file documented as of this encounter Visit Diagnoses Not on filedocumented in this encounter Care Teams Merchandise Flow Team Leader Relationship Specialty Start Date End Date Pcp, No [address] [place] [address] PCP - General Family Medicine 04/07/25 documented as of this encounter
--- OUTSIDE RECORDS SUMMARY | 2025-04-16 02:20 | XMS_ITS | Clinical Summary ---
Author Organization [facility] Address [address] [place] [address] Care Team Providers Care Racket Stringer Name Role Phone Jose Bailey MD Primary Care Provider [phone] Allergies Active Allergy Reactions Criticality Noted Date [...] to complete this topic Insurance Care Teams Racket Stringer Relationship Specialty Start Date End Date Jose Bailey MD [address] [place] [address] PCP - General Family Medicine 10/18/20
--- OUTSIDE RECORDS SUMMARY | 2025-04-16 02:20 | XMS_ITS | Clinical Summary ---
Author Organization Healthcare Address [address] [place] [address] Care Team Providers Care Toll Bridge Attendant Name Role Phone Pcp, No Primary Care Provider Unavailabl e Allergies Active Allergy Reactions Criticality Noted Date Comments Diphenhydramine Anaphylaxis,Hives High 08/08/2018 Ketorolac Tromethamine Hives High 08/08/2018 Tramadol Dizziness,Hives High 08/08/2018 Medications chlorhexidine (Peridex) 0.12 % solution Use 15mL in mouth up to three times a day. Swish for 60sec and then spit it out. 473 mL 04/07/2025 Active Active Problems Problem Noted Date Diagnosed Date Periapical abscess without sinus 01/18/2025 Dental caries, unspecified 01/12/2025 Opioid dependence 08/03/2024 Encounters Date Type Department Care Team Description 04/07/2025 5:29 PM EDT - 04/07/2025 7:11 PM EDT Emergency [facility] Emergency Department [address] [place] [address] Mary Prater MD Pain, dental (Primary Dx) Discharge Disposition: Home or Self Care 04/07/2025 Travel from Last 3 Months Social History Tobacco Use Types Packs/Day Years [...] Mass Index 38.97 04/07/2025 5:28 PM EDT Plan of Treatment Health Maintenance Due Date Last Done Comments [facility]-Depression Screening 1995 [facility]-HIV Screening 1995 [facility]-Hepatitis C Screening 1995 [facility]-/Child/Adol SDOH Screenings 1995 [facility]-Obesity Intervention 2001 [facility]-Varicella Vaccines (1 of 2 - 13+ 2-dose series) 2008 HPV Vaccines (1 - 3-dose series) 2010 [facility]- SDOH Screenings 2013 [facility]-Adult SDOH Screenings 2013 [facility]-DTaP,Tdap,and Td Vaccine s (1 - Tdap) 2014 [facility]-Hepatitis B Vaccines (1 of 3 - 19+ 3-dose series) 2014 [facility]-Pap Smear 2016 [id number] Vaccine (1 - 20 24-25 season) 2024 [facility]-Influenza Vaccine (#1) 2025 [facility]-Zoster Vaccines (1 of 2) 2045 [facility]-HIB Vaccines Aged Out No longer e ligible based on patient's age to complete this topic [facility]-Hepatitis A Vaccines Aged Out No longer eligible based on patient's age to complete this topic [facility]-IPV Vaccines Aged Out No longer e ligible based on patient's age to complete this topic [facility]-Pneumococcal Vaccine: Pediatrics (0 to 5 Years) and At-Risk Patients (6 to 49 Years) Aged Out No long er eligible based on patient's age to complete this topic [facility]-Rotavirus Vaccines Aged Out No lo nger eligible based on patient's age to complete this topic Procedures Procedure Name Priority Date/Time Associated Diagnosis Comments XR PANOREX STAT 04/07/2025 6:12 PM EDT from Last 3 Months Results * XR Panorex (04/07/2025 6:12 PM [...] signing this report, I, the attending physician, attestthat I have personally reviewed the images/data for the aboveexamination(s) and agree with the final edited report. Drafted by Damion Sepulveda DO on 04/07/2025 6:13 PM Final report signed by Gini Goetz MD on 04/07/2025 6:54 PM Jennifer MCCLOUD IMG XR PROCEDURES Final Result from Last 3 Months Insurance [employer] Care Teams Toll Bridge Attendant Relationship Specialty Start Date End Date Pcp, Alyson [address] [place] [address] PCP - General Family Medicine 04/07/25
[2025-04-16] MEDS: ACETAMINOPHEN 500MG TAB 1000 MG PO (02:26)
[2025-04-16] MEDS: ONDANSETRON 4MG/2ML VIAL 4 MG IV (02:26)
[2025-04-16] MEDS: HYDROMORPHONE 2MG/ML SYRINGE 1 MG IV (02:26)
[2025-04-16 02:28] LABS: Microscopic, Urine URINE MICROSCOPIC (MICROSCOPIC)
[2025-04-16 02:31] LABS: Bilirubin,Urine Negative (Negative); Color,Urine YELLOW (Yellow); Glucose,Urine (UA) Negative (Negative); Ketones,Urine TRACE (Negative); Leukocyte Esterase,Urine 1+ (Negative); PH,Urine 6.0 (5.0-8.5); Protein,Urine 1+ (Negative); Specific Gravity, Urine 1.025 (1.005-1.030); Urobilinogen,Urine 0.2 EU/dl (0.2)
[2025-04-16 02:32] VITALS: BP 112/78
[2025-04-16 02:33] LABS: Urine Pregnancy, HCG Qual. Negative (Negative)
[2025-04-16] MEDS: IOPAMIDOL-370 (76%);100ML BOTTLE 75 ML IV (02:37)
[2025-04-16] MEDS: SODIUM CHLORIDE 0.9% 10ML SYR (RAD ONLY) 10 ML IV (02:37)
[2025-04-16 02:41] LABS: Bacteria,Urine Trace /lpf; Squamous Epithelial Cell,Urine Occasional #/hpf (0-5)
[2025-04-16 02:44] LABS: Hematocrit 42.7 % (37.0-47.0); Hemoglobin 13.7 g/dL (12.2-16.2); Immature Granulocytes % 0.2 %; Mean Corpuscular HGB Conc 32.1 g/dL (31.8-35.4); Mean Corpuscular Hemoglobin 31.9 pg (27.0-31.2); Mean Corpuscular Volume 99.5 fl (81-99); Nucleated Red Blood Cells % 0 %; Platelet Count 334 K/mm3 (142-424); Red Blood Count 4.29 M/mm3 (4.20-5.40); Red Cell Distribution Width-SD 43.7 fL; White Blood Count 8.1 K/mm3 (4.8-10.8)
[2025-04-16 02:45] VITALS: PULSE 82; O2SAT 97
[2025-04-16 02:46] VITALS: BP 141/89; PULSE 117; RESP 16; TEMP 36.8; O2SAT 99; BMI 38.9
[2025-04-16 02:49] LABS: Alanine Aminotransferase 20 U/L (12-78); Albumin Level 4.7 g/dl (3.5-5.0); Albumin/Globulin Ratio 1.6 (1.1-1.8); Alkaline Phosphatase 75 U/L (38-126); Anion Gap 13.1 mEq/L (5-15); Aspartate Amino Transferase 27 U/L (14-36); Bilirubin,Total 0.4 mg/dl (0.2-1.3); Blood Urea Nitrogen 9 mg/dl (7-17); Calcium 10.0 mg/dl (8.4-10.2); Carbon Dioxide 26 mmol/L (22.0-30.0); Chloride 105 mmol/L (98-107); Creatinine,Serum 0.80 mg/dl (0.52-1.04); Estimated Glomerular Filt Rate 85 ml/min (>60); GFR (African American) 103 ML/MIN (>60); Globulin 2.9 g/dL (1.3-3.2); Glucose 119 mg/dl (74-100); Lipase 46 U/L (23-300); Potassium 3.1 mmoL/L (3.5-5.1); Sodium 141 mmol/L (136-145); Total Protein,Serum 7.6 g/dl (6.3-8.2)
[2025-04-16 03:00] VITALS: PULSE 78; O2SAT 97
[2025-04-16 03:01] VITALS: BP 106/75; PULSE 74; O2SAT 98
[2025-04-16 03:17] VITALS: BP 106/75; PULSE 74; RESP 14; TEMP 36.8; O2SAT 98
--- NOTE | 2025-04-18 17:00 | PC.NURSE ---
I discussed the pts prelim urine culture with . No change needed in treatment plan.
--- NOTE | 2025-04-19 08:44 | PC.NURSE ---
I discussed the pts final urine culture with . Pt was seen again this morning (04/19) and sent in cefdinir covering her e.coli in urine.
== END 2025-04-16 03:20 | disposition home or self-care (01) ==
PROVIDERS: Emergency Provider Emergency Medicine
DX: R10.9 Unspecified abdominal pain (principal); E78.5 Hyperlipidemia, unspecified; F41.9 Anxiety disorder, unspecified; F32.A Depression, unspecified; F17.210 Nicotine dependence, cigarettes, uncomplicated
CPT/HCPCS: 74177; 80053; 81001; 81025; 83690; 85025; 87086; 87088; 87186; 96374; 96375; 99285; J1171; J2405; Q9967

== ENCOUNTER 2025-04-19 00:29 | Emergency (ER) | payer OTHER, SELFPAY ==
--- OUTSIDE RECORDS SUMMARY | 2025-04-07 17:29 | XMS_ITS | Encounter Summary ---
Author Organization Healthcare Address [address] [place] [address] Care Team Providers Care Table Tender Sludge Name Role Phone Pcp, No Primary Care Provider Unavailabl e Reason for Visit * Reason Comments Dental Pain Encounter Details Date Type Department Care Team (Late st Contact Info) Description 04/07/2025 5:29 PM EDT - 04/07/2025 7:11 PM EDT Emergency [facility] Emergency Department [address] [place] [address] Mary Prater MD [address] [place] [address] Pain, dental (Primary Dx) Discharge [...] appt in 2 days and went to [facility] ER 2 days ago and was prescribed amoxicillin with no missed doses and a narcotic script. Said she ran out of her narcotic yesterday and today she tried APAP without relief. Reports the ER doctor earlier this wk told her to go to the nearest ER if her pain got worse. The patient offers unprompted that she was in [place] today to go to a [employer] baseball game and that is why she [...] behavior No indication of Ludwigs angina, bacteremia, BOX ESTIMATOR, facial cellulitis, nor ANUG. It is fortunate that she has a dentist appt on the next business day. Per chart review, patient has 17 short course narcotic scripts in the last 7.5 months with mult prescribers. Additionally per [employer], the [place] [employer] are playing an away game today in [place], thus it is unlikely that she was [...] 04/08/2025 8:08 PM EDT Associated attestation - Mray Prater MD - 04/08/2025 8:08 PM EDT [...] RN) documented in this encounter Care Teams Table Tender Sludge Relationship Specialty Start Date End Date Pcp, Alyson [address] [place] [address] PCP - General Family Medicine 04/07/25 documented as of this encounter
--- OUTSIDE RECORDS SUMMARY | 2025-04-19 00:36 | XMS_ITS | Clinical Summary ---
Author Organization Healthcare Address [address] [place] [address] Care Team Providers Care Fishing Hand Name Role Phone Pcp, No Primary Care [...] EDT Emergency [facility] Emergency Department [address] [place] [address] Mary Prater MD Pain, dental [...] 19+ 3-dose series) 2014 [facility]-Pap Smear 2016 [id number] Vaccine (1 - 20 24-25 season) 2024 [...] Insurance [employer] Care Teams Fishing Hand Relationship Specialty Start Date End Date Pcp, Alyson [address] [place] [address] PCP - General Family Medicine 04/07/25
--- OUTSIDE RECORDS SUMMARY | 2025-04-19 00:36 | XMS_ITS | Clinical Summary ---
Author Organization [facility] Address [address] [place] [address] Care Team Providers Care Wellness Coach Name Role Phone Jose Bailey MD Primary Care Provider [phone] Allergies Active Allergy Reactions Criticality Noted Date [...] to complete this topic Insurance Care Teams Wellness Coach Relationship Specialty Start Date End Date Jose Bailey MD [address] [place] [address] PCP - General Family Medicine 10/18/20
--- OUTSIDE RECORDS SUMMARY | 2025-04-19 00:36 | XMS_ITS | Encounter Summary ---
Author Organization Healthcare Address [address] [place] [address] Care Team Providers Care Financial Writer Name Role Phone Pcp, No Primary Care [...] on filedocumented in this encounter Care Teams Financial Writer Relationship Specialty Start Date End Date Pcp, No [address] [place] [address] PCP - General Family Medicine 04/07/25 documented as of this encounter
[2025-04-19 00:38] VITALS: BP 136/101; PULSE 101; RESP 16; TEMP 36.7; O2SAT 99; BMI 38.9
--- NOTE | 2025-04-19 00:41 | CT_ITS ---
PROCEDURE INFORMATION: Exam: CT Abdomen And Pelvis With Contrast Exam date and time: 04/19/2025 1:16 AM Age: 29 years old Clinical indication: Abdominal pain; Additional info: Acute right flank pain and rlq pain HX stones TECHNIQUE: Imaging protocol: Computed tomography of the abdomen and pelvis with contrast. Radiation optimization: All CT scans at this facility use at least one of these dose optimization techniques: automated exposure control; mA and/or kV adjustment per patient size (includes targeted exams where dose is matched to clinical indication); or iterative reconstruction. Contrast material: ISOVUE; Contrast volume: 75 ml; Contrast route: IV; COMPARISON: CT ABDOMEN PELVIS W CON 04/16/2025 2:38 AM FINDINGS: Liver: Unremarkable. Gallbladder and biliary ducts: Cholecystectomy. Pancreas: Normal. No ductal dilation. Spleen: Splenic granulomas. Adrenal glands: Unremarkable. Kidneys and ureters: Left interpolar and right lower pole 2 mm nonobstructive calcified calyceal renal stones. No hydronephrosis. Stomach and bowel: Unremarkable. No obstruction. No mucosal thickening. Appendix: Appendectomy. Intraperitoneal space: No free air. No fluid collection. Vasculature: Unremarkable. No abdominal aortic aneurysm. Lymph nodes: No enlarged lymph nodes. Urinary bladder: Unremarkable as visualized. Reproductive: Hysterectomy. Bones/joints: No acute fracture. Soft tissues: Unremarkable. IMPRESSION: 1. No obstructing nephroureterolithiasis. 2. Bilateral 2 mm nonobstructive calcified calyceal renal stones. 3. Otherwise no acute abdominopelvic abnormality.
--- NOTE | 2025-04-19 00:43 | ED_ITS ---
Discharge Plan Disposition Patient Disposition: Home, Self-Care Condition: Good Prescriptions Prescriptions: New ondansetron 4 mg tablet,disintegrating 4 mg PO Q6H PRN (Reason: nausea and vomiting) Qty: 10 0RF cefdinir 300 mg capsule 300 mg PO BID 10 Days Qty: 20 0RF phenazopyridine 100 mg tablet 100 mg PO Q8H PRN (Reason: pain) Qty: 6 0RF No Action ibuprofen 800 mg tablet 800 mg PO Q8H Qty: 20 0RF omeprazole 40 mg capsule,delayed release(DR/EC) 40 mg PO DAILY Qty: 30 2RF aspirin 81 mg tablet,delayed release (DR/EC) See Rx Instructions .ROUTE .COMPLEX Qty: 30 0RF Dose Instruction: TAKE 1 TABLET BY MOUTH ONCE DAILY FOR HEART HEALTH Rx Instructions: TAKE 1 TABLET BY MOUTH ONCE DAILY FOR HEART HEALTH bisoprolol fumarate 5 mg tablet 5 mg PO DAILY Rx Instructions: TAKE 1 TABLET BY MOUTH ONCE DAILY FOR HYPERTENSION ibuprofen 800 mg tablet 800 mg PO Q8H PRN (Reason: pain) Qty: 12 0RF ondansetron 4 mg tablet,disintegrating 4 mg PO Q8H PRN (Reason: nausea and vomiting) 4 Days Qty: 12 0RF ibuprofen 800 mg tablet 800 mg PO Q8H PRN (Reason: pain) Qty: 20 0RF chlorhexidine gluconate 2 % liquid 1 applic topical DAILY Qty: 118 0RF Rx Instructions: Cleanse affected area daily. clindamycin phosphate 1 % gel, once daily 1 applic topical DAILY Qty: 75 0RF Rx Instructions: Apply to affected area daily. sulfamethoxazole-trimethoprim [Bactrim DS] 800-160 mg tablet 1 tab PO BID 7 Days Qty: 14 0RF acetaminophen 500 mg capsule 500 mg PO Q6H PRN (Reason: pain) 7 Days Qty: 28 0RF doxycycline monohydrate 100 mg capsule 100 mg PO BID 7 Days Qty: 14 0RF clindamycin HCl 300 mg capsule 300 mg PO Q8H 7 Days Qty: 21 0RF Referrals Follow up/Referrals: Provider,Referral, MD [Primary Care Provider, Medical] - See instructions Activity Restrictions/Add. Instructions Additional Instructions/Restrictions: You were evaluated in the ER and are believed to be appropriate for discharge at this time. Take the prescribed antibiotics as directed, do not skip doses, do not stop taking them early. Take the prescribed phenazopyridine (Azo) as directed. Take the prescribed Zofran (ondansetron) if needed for nausea and vomiting. Take Tylenol and ibuprofen if needed for pain, do not exceed the recommended dose on the bottle. Please increase your water intake and decrease your intake of sodas to improve your overall kidney and urinary health. Follow-up with Dr. Gooden as scheduled on Wednesday. Follow-up with your primary care doctor for reevaluation in a few days as well. Return to the ER with any new, worsening, or otherwise concerning symptoms. Clinical Impressions Clinical Impression: Pyelonephritis, Bilateral nephrolithiasis Instructions Patient Instructions: DI for Acute Abdominal Pain Print Language Print Language: Greenlandic Discharge ED Provider: Anayeli Saunders Adult HPI General Chief complaint: Abdominal Pain Stated complaint: kidney stones, diarrhea, pain worsened, nausea Time Seen by Provider: 04/19/25 00:36 Mode of Arrival: Ambulatory Source of Information: Patient Description of Symptoms (Recalled from ER Triage Doc. by RN): pt presents to the Ed d/t complaints of worsening abdominal pain/ flank pain. pt states she was seen a couple nights ago, diagnosed with kidney stones and been having frequent urine and severe diarhea History of Present Illness HPI narrative: 29-year-old female presents to the ER complaining of flank pain on the right side. Patient was evaluated a few nights ago with similar symptoms but they were on the left. She states at that time they thought she had just passed a kidney stone, she felt good for couple days but tonight approximately 45 minutes prior to arrival she had sudden onset pain in the right side. She demonstrates to her right lower quadrant and radiating back to her right flank. She states it feels similar to previous kidney stones. She feels a pressure when she urinates but no pain. She states she has had some blood in her urine since the previous stone passed. Patient reports she follows with Dr. Gooden with urology in [place]. She is having urinary frequency and has had 2 episodes of diarrhea in the last 24 hours, nonbloody, nonmelanotic. She reports nausea but no vomiting. No chest pain or difficulty breathing, no headache, dizziness, numbness, tingling, weakness. No fevers or chills. Patient denies any other associated symptoms. Patient has a history of hysterectomy. She has had to have stone removal in the past. Related Data Home Medications ?Medication ?Instructions ?Recorded ?Confirmed bisoprolol fumarate 5 mg tablet 5 mg PO DAILY 07/18/24 12/03/24 Previous Rx's ?Medication ?Instructions ?Recorded ibuprofen 800 mg tablet 800 mg PO Q8H #20 tabs 10/31 omeprazole 40 mg capsule,delayed 40 mg PO DAILY #30 ca ps 11/23/24 release aspirin 81 mg tablet,delayed See Rx Instructions .Rout e 12/12/24 release .COMPLEX #30 tabs ibuprofen 800 mg tablet 800 mg PO Q8H PRN pain #12 t abs 12/15/24 ondansetron 4 mg disintegrating 4 mg PO Q8H PRN nausea and 12/15/24 tablet vomiting 4 days #12 tabs ibuprofen 800 mg tablet 800 mg PO Q8H PRN pain #20 t abs 12/30/24 chlorhexidine gluconate 2 % 1 applic topical DAILY #11 8 mL 01/09/25 topical liquid clindamycin phosphate 1 % topical 1 applic topical SUMMER LY #75 mL 01/09/25 gel, once daily sulfamethoxazole 800 1 tab PO BID 7 days #14 tabs 01/09/25 mg-trimethoprim 160 mg tablet (Bactrim DS) clindamycin HCl 300 mg capsule 300 mg PO Q8H 7 days #2 1 caps 02/04/25 acetaminophen 500 mg capsule 500 mg PO Q6H PRN pain 7 days #28 03/15/25 caps doxycycline monohydrate 100 mg 100 mg PO BID 7 days #1 4 caps 03/15/25 capsule cefdinir 300 mg capsule 300 mg PO BID 10 days #20 ca ps 04/19/25 ondansetron 4 mg disintegrating 4 mg PO Q6H PRN nausea and 04/19/25 tablet vomiting #10 tabs phenazopyridine 100 mg tablet 100 mg PO Q8H PRN pain 6 doses #6 04/19/25 tabs Allergies Allergy/AdvReac Type Severity Reaction Status Date / Time ketorolac (From TORADOL) Allergy Mild Hives Verified 12/03/24 12:39 tramadol (TRAMADOL) Allergy Mild Hives Verified 12/03/24 12:39 diphenhydramine (From Allergy Unknown I-HIVES Verified 12/03/24 12:39 BENADRYL) [facility] Disclaimer: The information contained in this section may have been updated after the patient was seen, as this information can be updated by other users. Medical History Thyromegaly Chronic GERD Globus sensation Kidney stones Patient left without being seen Postoperative pain Otitis media Abdominal pain Foot callus Cellulitis Patient left without being seen Trichomonal vaginitis Postoperative abdominal pain Dysmenorrhea Menorrhagia Right lower quadrant pain Dysfunctional uterine bleeding Flank pain Palpitations SOB (shortness of breath) Concussion without loss of consciousness Microhematuria Acute right flank pain Degenerative joint disease (DJD) of lumbar spine Patient left without being seen Otitis externa Lumbar disc disease Tachycardia Back pain Dyspnea Chest pain Atypical chest pain Ovarian cyst Trichomonal cystitis Abdominal pain of unknown etiology Bilious vomiting Vomiting Closed fracture of tuft of distal phalanx of finger Pelvic pain UTI (urinary tract infection) Renal colic on left side Endometriosis Surgical History Hx of tonsillectomy History of cholecystectomy History of appendectomy H/O hysterectomy with oophorectomy [place] teeth extracted S/P appendectomy S/P hysterectomy Family History Mother Diabetes Hypertension Grandmother Cancer Father Cancer Hypertension Diabetes Social History Smoking Status: Unknown if ever smoked alcohol intake: never counseling provided: none substance use type: denies use current occupational status: employed and other Travel in the last 8 weeks?: None household members: spouse housing: house current occupational exposures/hazards: No caffeine: Yes Have you lived/traveled outside US in past 30 days?: No Contact w/someone who lives/traveled outside US past 30 days?: No Exposure to someone with infectious disease in past 14 days?: No Do you have a fever (greater than 100.4 F or 38 C)?: No Have you tested positive for COVID-19?: No Exposed to someone with COVID-19 in past 14 days?: No Do you have a sore throat?: No Do you have a cough?: No Do you have any weakness?: No Do you have any diarrhea?: Yes Are you experiencing any unusual bleeding?: No Do you have any muscle aches/pain?: No Do you have any abdominal pain?: Yes Are you experiencing loss of taste or smell?: No Other Medical History Have you received the Flu Vaccine for this season: No Have you received the Pneumonia Vaccine: No ROS Obtained: Yes Systems reviewed as appropriate & no additional complaints except as documented per HPI Physical Exam General General appearance: alert, in no apparent distress and obese Head Head exam: atraumatic and normocephalic Eye Eye exam: Present PERRL and EOMI ENT ENT exam: Present mucous membranes moist Neck Neck exam: Present normal inspection and full ROM Chest Chest inspection: Present symmetric chest wall rise Respiratory Respiratory exam: Absent respiratory distress or stridor Cardiovascular Cardiovascular exam: Present regular rate and normal rhythm Abdominal Exam Abdominal exam: Present soft and tenderness (Mild right lower quadrant); Absent distention, guarding or rebound Extremities Exam Extremities exam: Present full ROM Back Exam Back exam: Present CVA tenderness (R) (Moderate low right CVA area); Absent CVA tenderness (L) Neurological Exam Neurological exam: Present alert and oriented X3; Absent motor sensory deficit Psychiatric Psychiatric exam: Present normal affect and normal mood Skin Skin exam: Present warm and dry Medical Decision Making Medical Records Medical records reviewed: Yes I reviewed the patient's medical records. Screening: Per USPSTF and CDC recommendations, given the prevalence of disease in our region, it is our hospital?s policy to screen for HIV and viral Hepatitis for all patients aged 18 and over and those with ongoing risk factors. MR Comment: CT abdomen pelvis from 04/16/25 demonstrates patient had bilateral nephrolithiasis at that time Aram Inquiry Pt receiving controlled substance: No Vital Signs: 04/19/25 00:38 04/19/25 01:49 Temperature 98.0 F 98.0 F Temperature Source Oral Oral Pulse Rate 83 Pulse Rate [Right Radial] 101 H Respiratory Rate 16 18 Blood Pressure 186/89 H Blood Pressure [Right Arm] 136/101 H Blood Pressure Mean [Right Arm] 112 Blood Pressure Position Supine Blood Pressure Position [Right Arm] Supine 02 Sat by Pulse Oximetry 99 98 Oxygen Delivery Method Room Air Lab Data Lab Results 04/19/25 00:36: Urine Color Yellow, Urine Appearance Sl cloudy, Urine pH 5.5, Ur Specific [place]ec[place] Gap >= 1.030, Urine Protein 1+ A, Urine Glucose (UA) Negative, Urine Ketones Trace, Urine Blood 2+ A, Urine Nitrate Positive A, Urine Bilirubin Negative, Urine Urobilinogen 1.0, Ur Leukocyte Esterase Negative, Urine RBC 20- 50, Urine WBC 10-20, Ur Squamous Epith Cells 10-20, Urine Bacteria 2+ 04/19/25 01:00: WBC 8.8, RBC 4.25, Hgb 13.7, Hct 41.6, MCV 97.9, MCH 32.2 H, MCHC 32.9, RDW 11.9, Plt Count 352, MPV 10.9 H, Neut % (Auto) 61.9, Lymph % (Auto) 31.1, [place] % (Auto) 6.0, Eos % (Auto) 0.6, Baso % (Auto) 0.2, Neut # (Auto) 5.4, Lymph # (Auto) 2.7, [place] # (Auto) 0.5, Eos # (Auto) 0.1, Baso # (Auto) 0.0, PT 11.4, INR 1.03, Sodium 139, Potassium 3.9 D, Chloride 107, Carbon Dioxide 23, Anion Gap 12.9, BUN 11, Creatinine 0.80, Estimated Creat Clear 163, Estimated GFR 85, Est GFR ( Amer) 103, Glucose 121 H, Calcium 9.8, Total Bilirubin 0.7, AST 33, ALT 19, Alkaline Phosphatase 49, Total Protein 8.1, Albumin 4.8, Globulin 3.3 H, Albumin/Globulin Ratio 1.5 04/19/25 01:00 04/19/25 01:00 Orders (Tests/Meds): ED MEDICATIONS Generic Name Dose Route Start Last Admin Trade Name Freq PRN Reason Stop Dose Admin Ceftriaxone Sodium 2 gm/ 100 mls @ 200 mls/hr 04/19/25 01:30 04/19/25 01:32 Sodium Chloride IV 04/29/25 01:29 200 mls/hr Q24H MARGUERITE Administration Sodium Chloride 10 ml 04/19/25 01:21 04/19/25 01:22 Sodium Chloride 0.9% 10ml Syr (Rad Only) IV 05/19/25 01:20 10 ml NEEDED PRN Administration Maintain IV Site Discontinued Medications Generic Name Dose Route Start Last Admin Trade Name Freq PRN Reason Stop Dose Admin Acetaminophen 1,000 mg 04/19/25 01:48 Acetaminophen 500mg Tab PO 04/19/25 01:49 ONCE ONE Lactated Ringer's 1,000 mls @ 999 mls/hr 04/19/25 00:41 04/19/25 01:06 Lactated Ringer's 1000 Ml Bag IV 04/19/25 01:41 999 mls/hr .Q1H1M ONE Administration Iopamidol 75 ml 04/19/25 01:21 04/19/25 01:22 Iopamidol-370 (76%);100ml Bottle IV 04/19/25 01:22 75 ml ONCE ONE Administration Morphine Sulfate 4 mg 04/19/25 00:41 04/19/25 01:06 Morphine 4mg/Ml Syringe IV 04/19/25 00:42 4 mg ONCE ONE Administration Morphine Sulfate 4 mg 04/19/25 01:23 04/19/25 01:32 Morphine 4mg/Ml Syringe IV 04/19/25 01:24 4 mg ONCE ONE Administration Ondansetron HCl 4 mg 04/19/25 00:41 04/19/25 01:05 Ondansetron 4mg/2ml Vial IV 04/19/25 00:42 4 mg ONCE ONE Administration ORDERS Category Date Time Status CT abdomen pelvis w con Stat Cat Scan 04/19/25 00:41 Completed CBC w/Auto Diff [Complete Blood Count Auto Diff] Stat Lab 04/19/25 01:00 Completed CMP [Comprehensive Metabolic Panel] Stat Lab 04/19/25 01:00 Completed PT INR [Prothrombin Time INR] Stat Lab 04/19/25 01:00 Completed Urinalysis and Microscopic Stat Lab 04/19/25 00:36 Completed Urinalysis and Microscopic Stat Lab 04/19/25 01:57 Ordered Urine Chlam/Gono/Trich ([facility]) Stat Lab 04/19/25 01:39 Received Urine Culture Stat Micro 04/19/25 00:36 Received Urine Culture Stat Micro 04/19/25 01:39 Received Medical Decision Narrative: In summary, this 29-year-old female with history of previous kidney stones presents to the emergency department today with right lower quadrant abdominal pain and flank pain. On initial evaluation patient is mildly tachycardic but otherwise hemodynamically stable, afebrile, exam notable for mild tenderness to palpation of the right lower quadrant as well as significant right low CVA tenderness, remainder of exam benign. Differential diagnosis includes but is not limited to nephrolithiasis, ureterolithiasis, hydronephrosis, urinary tract infection, pyelonephritis, obstructive stone, kidney dysfunction, appendicitis, among others. Based on these concerns, I ordered serum labs, urine studies, CT imaging. Patient is receiving morphine, Zofran, IV fluids initially for treatment. She also received Tylenol. Labs personally reviewed demonstrate no leukocytosis, no anemia, platelets normal, PT/INR normal, CMP nonactionable, patient has good kidney function, UA positive for nitrates with increased WBC compared to her UA few days ago. There are also more RBCs. Sample is contaminated with squamous cells but being nitrate positive I do have increased suspicion for true infection. I reviewed urine micro from her visit 3 days ago which showed gram-negative rods, no additional information available on the culture at this time. I do believe this represents infections 1 would treat the patient with Rocephin. I requested the patient provide a fresh urine sample and gave her explicit instructions on collecting a clean or catch. I reached out to lab and asked them to run urine culture only on the fresh sample which is being sent upstairs. Patient reports she is not taking Azo or any other medications at this time that would cause her to be nitrate positive so I do think this represents infection. CT abdomen pelvis personally interpreted demonstrates stones in both kidneys but no ureterolithiasis, hydronephrosis, or other acute intra-abdominal pathology, see radiology read for final interpretation. On reassessment patient has had improvement of symptoms, she is resting comfortably. Her mild tachycardia that was present on arrival has resolved. She does not appear systemically ill, no leukocytosis. I believe she is appropriate for discharge despite findings of urinary tract infection and likely early pyelonephritis at this time. She is comfortable with this plan. She reports she has follow-up scheduled with urology Dr. Gooden on Wednesday. I encouraged her to keep this appointment as scheduled. I prescribed cefdinir, Zofran, and Azo for the patient for outpatient management. Patient was given instructions on symptomatic management, follow up instructions, and return precautions for the emergency department. Patient indicated understanding and was discharged in stable condition. Critical Care Critical Care Time Critical Care Time: No
[2025-04-19 00:48] LABS: Microscopic, Urine URINE MICROSCOPIC (MICROSCOPIC)
[2025-04-19] MEDS: ONDANSETRON 4MG/2ML VIAL 4 MG IV (01:05)
[2025-04-19 01:06] LABS: Bilirubin,Urine Negative (Negative); Color,Urine YELLOW (Yellow); Glucose,Urine (UA) Negative (Negative); Ketones,Urine TRACE (Negative); Leukocyte Esterase,Urine Negative (Negative); PH,Urine 5.5 (5.0-8.5); Protein,Urine 1+ (Negative); Specific Gravity, Urine >= 1.030 (1.005-1.030); Urobilinogen,Urine 1.0 EU/dl (0.2)
[2025-04-19] MEDS: LACTATED RINGERS 1000ML 1,000 ML 999 ML IV (01:06)
[2025-04-19] MEDS: MORPHINE 4MG/ML SYRINGE 4 MG IV ×2 (01:06→01:32)
[2025-04-19 01:10] LABS: Hematocrit 41.6 % (37.0-47.0); Hemoglobin 13.7 g/dL (12.2-16.2); Immature Granulocytes % 0.2 %; Mean Corpuscular HGB Conc 32.9 g/dL (31.8-35.4); Mean Corpuscular Hemoglobin 32.2 pg (27.0-31.2); Mean Corpuscular Volume 97.9 fl (81-99); Nucleated Red Blood Cells % 0 %; Platelet Count 352 K/mm3 (142-424); Red Blood Count 4.25 M/mm3 (4.20-5.40); Red Cell Distribution Width-SD 42.8 fL; White Blood Count 8.8 K/mm3 (4.8-10.8)
[2025-04-19 01:14] LABS: Bacteria,Urine 2+ /lpf; RBC,Urine 20-50 #/hpf (0-3)
[2025-04-19] MEDS: SODIUM CHLORIDE 0.9% 10ML SYR (RAD ONLY) 10 ML IV (01:22)
[2025-04-19] MEDS: IOPAMIDOL-370 (76%);100ML BOTTLE 75 ML IV (01:22)
[2025-04-19 01:26] LABS: Alanine Aminotransferase 19 U/L (12-78); Albumin Level 4.8 g/dl (3.5-5.0); Albumin/Globulin Ratio 1.5 (1.1-1.8); Alkaline Phosphatase 49 U/L (38-126); Anion Gap 12.9 mEq/L (5-15); Aspartate Amino Transferase 33 U/L (14-36); Bilirubin,Total 0.7 mg/dl (0.2-1.3); Blood Urea Nitrogen 11 mg/dl (7-17); Calcium 9.8 mg/dl (8.4-10.2); Carbon Dioxide 23 mmol/L (22.0-30.0); Chloride 107 mmol/L (98-107); Creatinine Clearance Estimated 163 mL/min (50-200); Creatinine,Serum 0.80 mg/dl (0.52-1.04); Estimated Glomerular Filt Rate 85 ml/min (>60); GFR (African American) 103 ML/MIN (>60); Globulin 3.3 g/dL (1.3-3.2); Glucose 121 mg/dl (74-100); Potassium 3.9 mmoL/L (3.5-5.1); Sodium 139 mmol/L (136-145); Total Protein,Serum 8.1 g/dl (6.3-8.2)
[2025-04-19 01:27] LABS: INR 1.03 (0.9-1.1); Prothrombin Time 11.4 seconds (10.1-12.5)
[2025-04-19 01:49] VITALS: BP 186/89; PULSE 83; RESP 18; TEMP 36.7; O2SAT 98
[2025-04-19 01:58] LABS: Microscopic, Urine URINE MICROSCOPIC (MICROSCOPIC)
[2025-04-19 02:00] LABS: Bilirubin,Urine Negative (Negative); Color,Urine YELLOW (Yellow); Glucose,Urine (UA) Negative (Negative); Ketones,Urine Negative (Negative); Leukocyte Esterase,Urine Negative (Negative); PH,Urine 6.0 (5.0-8.5); Protein,Urine TRACE (Negative); Specific Gravity, Urine 1.010 (1.005-1.030); Urobilinogen,Urine 0.2 EU/dl (0.2)
[2025-04-19] MEDS: ACETAMINOPHEN 500MG TAB 1000 MG PO (02:00)
[2025-04-19 02:03] VITALS: BP 148/89; PULSE 76; RESP 16; TEMP 36.7; O2SAT 98
[2025-04-19 02:04] VITALS: BP 148/89; PULSE 76; RESP 16; TEMP 36.7; O2SAT 98
[2025-04-19 02:18] LABS: Bacteria,Urine 1+ /lpf; Hyaline Casts,Urine OCC #/lpf (0); Mucus,Urine Trace /lpf; Trichomonas,Urine Occasional /lpf
--- NOTE | 2025-04-21 03:51 | PC.NURSE ---
MD arredondo given urine culture results, no new prescriptions required at this time
== END 2025-04-19 02:09 | disposition home or self-care (01) ==
PROVIDERS: Emergency Provider Emergency Medicine
DX: N10 Acute pyelonephritis (principal); R10.31 Right lower quadrant pain; N20.0 Calculus of kidney; A59.01 Trichomonal vulvovaginitis
CPT/HCPCS: 74177; 80053; 81001; 85025; 85610; 87086; 87088; 87186; 87491; 87591; 87661; 96361; 96365; 96375; 96376; 99285; J0696; J2270; J2405; J7120; Q9967

== ENCOUNTER 2025-05-14 01:33 | Emergency (ER) | payer OTHER, SELFPAY ==
--- OUTSIDE RECORDS SUMMARY | 2025-04-07 17:29 | XMS_ITS | Encounter Summary ---
Author Organization Healthcare Address [address] [place] [address] Care Team Providers Care Pyridine Recovery Operator Name Role Phone Pcp, No Primary Care Provider Unavailabl e Reason for Visit * Reason Comments Dental Pain Encounter Details Date Type Department Care Team (Late st Contact Info) Description 04/07/2025 5:29 PM EDT - 04/07/2025 7:11 PM EDT Emergency [facility] [address] [place] [address] Mary Prater MD [address] [place] [address] Pain, dental (Primary Dx) Discharge Disposition: Home or Self Care Social History Tobacco Use Types Packs/Day Years Used Date Smoking Tobacco: Never Assessed Comments Unknown Sex and Gender Information Value Date Recorded Sex Assigned at Not on file Legal Sex Female 7:04 PM EDT Gender Identity Not on file Sexual Orientation Not on file documented as of this encounter Last Filed Vital Signs Vital Sign Reading Time Taken Comments Blood Pressure 126/88 04/07/2025 5:28 PM EDT Pulse 98 04/07/2025 5:28 PM EDT Temperature 37.6 C (99.6 F) 04/07/2025 5:28 PM EDT Respiratory Rate 16 04/07/2025 5:28 PM EDT Oxygen Saturation 98% 04/07/2025 5:28 PM EDT Inhaled Oxygen Concentration - - Weight 99.8 kg (220 lb) 04/07/2025 5:28 PM EDT Height 160 cm (5' 3 ) 04/07/2025 5:28 PM EDT Body Mass Index 38.97 04/07/2025 5:28 PM EDT documented in this encounter Functional Status * Calculated C-SSRS Risk Score (Lifetime/Recent) Answer Date of Assessment Author No Risk Indicated 04/07/2025 6:00 PM EDT Luigi Hawley RN * Question Answer Date of Assessment Author 1. Wish to be (Past 1 Month) No 04/07/2025 6:00 PM EDT Luigi Hawley RN 2. Non-Specific Active Suici gamal Thoughts (Past 1 Month) No 04/07/2025 6:00 PM EDT Junior Hawley RN 6. Suicidal Behavior (Lifetime) No 6:00 PM EDT Luigi Hawley RN documented as of this encounter Discharge Instructions * Discharge Instructions* Jennifer Stone PA - 04/07/2025 6:37 PM EDT Please continue antibiotics. Please use tylenol, motrin, and Orajel as directed on bottle with prescribed Peridex. Keep dentist appt in 2 days for definitive care. Return to ER if develop inability to eat/drink, marked swelling, drooling, can't close or open mouth, fever (temp is > or = to 100.4F), worsening symptoms or any concern documented in this encounter Medications at Time of Discharge chlorhexidine (Peridex) 0.12 % solution Use 15mL in mouth up to three times a day. Swish for 60sec and then spit it out. 473 mL 04/07/2025 documented as of this encounter Miscellaneous Notes * ED Provider Notes - Jennifer Stone PA - 04/07/2025 5:00 PM EDT Images from the original note were not included. - HPI Chief Complaint Patient presents with Dental Pain Maria Del Carmen Hill is a 29 y.o. female PMH poor dentition, dental abscess who presents to the EmergencyDepartment with complaints of Dental Pain. Reports has dentist appt in 2 days and went to [facility] 2 days ago and was prescribed amoxicillin with no missed doses and a narcotic script. Said she ran out of her narcotic yesterday and today she tried APAP without relief. Reports the ER doctor earlier this wk told her to go to the nearest ER if her pain got worse. The patient offers unprompted that she was in [place] today to go to a [employer] baseball game and that is why she came to this ER.Denies other concern. Patient History Past Medical History[1] Surgical History[2] Family History[3] Social History[4] Allergies: Allergies[5] Physical Exam ED Triage Vitals [04/07/25 1728] Temp Heart Rate Resp BP 37.6 ??C (99.6 ??F) 98 16 126/88 SpO2 Temp Source Heart Rate Source Patient Position 98 % Oral Monitor Sitting BP Location FiO2 (%) Right arm -- Physical Exam Constitutional: General: She is not in acute distress. Appearance: Normal appearance. She is not ill-appearing, toxic-appearing or diaphoretic. HENT: Head: Normocephalic and atraumatic. Comments: No facial cellulitis. No induration, no fluctuance, no erythema. Nose: Nose normal. Mouth/Throat: Mouth: Mucous membranes are moist. Comments: Markedly poor dentition, mult broken off and brown teeth. Some gingival erythema without edema nor fluctuance. No Jose Luis's angina. Eyes: General: No scleral icterus. Cardiovascular: Rate and Rhythm: Normal rate. Pulmonary: Effort: Pulmonary effort is normal. Abdominal: General: Abdomen is flat. There is no distension. Musculoskeletal: General: No deformity. Cervical back: Neck supple. No rigidity. Skin: General: Skin is warm and dry. Capillary Refill: Capillary refill takes less than 2 seconds. Neurological: Mental Status: She is alert and oriented to person, place, and time. Coordination: Coordination normal. Psychiatric: Mood and Affect: Mood normal. Aletha Coma Scale Score: 15 ED Course & MDM - Assessment: 29 y.o. female presents to ED with complaint of dental pain. It should be noted that the chronic conditions includes poor dentition, dental abscesses, obesity, which currently is not at goal therapy.This complicates the clinical picture because it Comorbidities: may be exacerbating symptoms and increases the risk for morbidity Differential Diagnosis: dental pain, abscess, cavities, poor pain tolerance, periodontal disease, possible drug seeking behavior No indication of Ludwigs angina, bacteremia, CANNONEER, facial cellulitis, nor ANUG. It is fortunate that she has a dentist appt on the next business day. Per chart review, patient has 17 short course narcotic scripts in the last 7.5 months with mult prescribers. Additionally per [employer], the [place] [place] are playing an away game today in [place], thus it is unlikely that she was in town today to go to this game; perhaps she was mistaken about the [employer]'s schedule or meant she came to town to watch it on a cable network? In order to fully explore the differential diagnosis the following treatments and tests were ordered: ED Medication Administration from 04/07/2025 1700 to 04/07/20251899 Date/Time Order Dose Route Action 04/07/2025 1749 EDT oxyCODONE (Roxicodone) immediate release tablet 5 mg 5 mg Oral Given 04/07/2025 175 EDT benzocaine (Orajel) 10 % mucosal gel 1 Application 1 Application Mouth/Throat Given All Other Orders Ordered Status Ordering Provider 04/07/251744 XR Panorex Once Final result JENNIFER STONE ED Course as of 04/07/251899 Sat Apr 07, 2025 185 XR Panorex Multiple missing teeth. No discrete periapical lucencies are visualized to suggest periapical cyst/abscess. Caries within the left lateral maxillary incisor. IMPRESSION: Dental caries involving the left lateral maxillary incisor. Multiple missing teeth. No discrete periapical lucencies to suggest periapical cyst/abscess. [AB] ED Course User Index [AB] Jennifer Stone, PA Clinical Impressions as of 04/07/251899 Pain, dental Social Determinates of Health Risks (including Economic Stability, Education and level of understanding, Healthcare access and quality and concerning social factors): Chronic tobacco use Will go ahead and give a one time dose of PO narcotic while awaiting panorex and topical Orajel. Chart reviewed and patient found to have mult short course narcotic scripts with mult providers. We will avoid a narcotic prescription today. XR showed missing, broken teeth, no obvious periapical abscess per my review and interpretation. Patient to continue abx, to use APAP, ibuprofen, Orajel, prescribed Peridex, to keep dental appt in 2 days. Ultimately, this patient was Was discharged Home (Discharge) The encounter diagnosis was Pain, dental. . Patient was counseled on the diagnoses. Discharge medications if any are listed below. Listed medications are thought be either curative for listed diagnoses or will help control ongoing symptoms. Patient is requested to follow up with Dentistry in order to obtain routine follow-up and discussion of further treatment options. Instructions onfollow up as well as precautions to return to the ER provided verbally by the EM provider, as well as written in patients discharge education packet. ED Prescriptions Medication Sig Dispense Start Date End Date Auth. Provider chlorhexidine (Peridex) 0.12 % solution Use 15mL in mouth up to three times a day. Swish for 60sec and then spit it out. 473 mL 04/07/2025 -- Jennifer Stone PA Discharge Instructions Please continue antibiotics. Please use tylenol, motrin, and Orajel as directed on bottle with prescribed Peridex. Keep dentist appt in 2 days for definitive care. Return to ER if develop inability to eat/drink, marked swelling, drooling, can't close or open mouth, fever (temp is > or = to 100.4F), worsening symptoms or any concern Disposition Discharge - [1] Past Medical History: Diagnosis Date Dental caries, unspecified 01/12/2025 Opioid dependence 08/03/2024 Periapical abscess without sinus 01/18/2025 [2] History reviewed. No pertinent surgical history. [3] No family history on file. [4] [5] Allergies Allergen Reactions Diphenhydramine Anaphylaxis and Hives Ketorolac Tromethamine Hives Tramadol Dizziness and Hives Jennifer Stone PA 04/07/251904 Cosigned by Mary Prater MD at 04/08/2025 8:08 PM EDT Associated attestation - Mary Prater MD - 04/08/2025 8:08 PM EDT The patient was seen only by Advanced Practice Provider (JOVANNY). * ED Triage Notes - Katiuska Lopez RN - 04/07/2025 5:00 PM EDT Patient complains of a tooth abscess x 3 weeks. Patient states she is suppose to see her dentist onmonday documented in this encounter Plan of Treatment Not on file documented as of this encounter Procedures Procedure Name Priority Date/Time Associated Diagnosis Comments XR PANOREX STAT 04/07/2025 6:12 PM EDT documented in this encounter Results * XR Panorex (04/07/2025 6:12 PM EDT) Anatomical Region Laterality Modality Jaw region Panoramic X-Ray Impressions 04/07/2025 6:54 PM EDT Dental caries involving the left lateral maxillary incisor. Multiple missing teeth. No discrete periapical lucencies to suggest periapical cyst/abscess. CRITICAL RESULT: No. COMMUNICATION: Per this written report. Preliminary report signed by Damion Sepulveda DO on 04/07/2025 6:16 PM By electronically signing this report, I, the attending physician, attest that I have personally reviewed the images/data for the above examination(s) and agree with the final edited report. Drafted by Damion Sepulveda DO on 04/07/2025 6:13 PM Final report signed by Gini Goetz MD on 04/07/2025 6:54 PM Narrative 04/07/2025 6:54 PM EDT CLINICAL INDICATION: R maxillary cetntral and lateral incisor pain TECHNIQUE: XR PANOREX COMPARISON: None. FINDINGS: Multiple missing teeth. No discrete periapical lucencies are visualized to suggest periapical cyst/abscess. Caries within the left lateral maxillary incisor. Procedure Note Gini Goetz MD - 04/07/2025 CLINICAL INDICATION: R maxillary cetntral and lateral incisor pain TECHNIQUE: XR PANOREX COMPARISON: None. FINDINGS: Multiple missing teeth. No discrete periapical lucencies are visualized tosuggest periapical cyst/abscess. Caries within the left lateral maxillaryincisor. IMPRESSION: Dental caries involving the left lateral maxillary incisor. Multiplemissing teeth. No discrete periapical lucencies to suggest periapical cyst/abscess. CRITICAL RESULT: No. COMMUNICATION: Per this written report. Preliminary report signed by Damion Sepulveda DO on 04/07/2025 6:16 PM By electronically signing this report, I, the attending physician, lucíaat I have personally reviewed the images/data for the aboveexamination(s) and agree with the final edited report. Drafted by Damion Sepulveda DO on 04/07/2025 6:13 PM Final report signed by Gini Goetz MD on 04/07/2025 6:54 PM us Jennifer MCCLOUD IMG XR PROCEDURES Final Result documented in this encounter Visit Diagnoses Diagnosis Pain, dental- Primary documented in this encounter Administered Medications Inactive Administered Medications - up to 3 most recent administrations Medication Order MAR Action Action Date Dose Rate Site benzocaine (Orajel) 10 % mucosal gel 1 Application Mouth/Throat, 4 times daily PRN, Starting on 04/07/25 at 1745, Until 04/07/25 at 2113, Routine, mild pain Given 04/07/2025 5:54 PM EDT 1 Application oxyCODONE (Roxicodone) immediate release tablet 5 mg 5 mg, Oral, Once, 1 dose, On 04/07/25 at 1750, STAT Given 04/07/2025 5:49 PM EDT 5 mg documented in this encounter Active and Recently Administered Medications Times are shown in EDT. Scheduled Medication Order 04/05/2025 04/06/2025 04/07/2025 oxyCODONE (Roxicodone) immediate release tablet 5 mg (COMPLETED) 5 mg, Oral, Once, 1 dose, On 04/07/25 at 1750, STAT 1749 (Given - Provid er: Luigi Hawley RN) PRN Medication Order 04/05/2025 04/06/2025 04/07/2025 benzocaine (Orajel) 10 % mucosal gel 1 Application Mouth/Throat, 4 times daily PRN, Starting on 04/07/25 at 1745, Until 04/07/25 at 2113, Routine, mild pain 1754 (Given - Provid er: Luigi Hawley RN) documented in this encounter Care Teams Pyridine Recovery Operator Relationship Specialty Start Date End Date Pcp, Alyson [address] [place] [address] PCP - General Family Medicine 04/07/25 documented as of this encounter
--- NOTE | 2025-05-14 01:37 | ED_ITS ---
Discharge Plan Disposition Patient Disposition: Home, Self-Care Prescriptions Prescriptions: New sulfamethoxazole-trimethoprim 800-160 mg tablet 1 tab PO BID 7 Days Qty: 14 0RF ondansetron HCl 4 mg tablet 4 mg PO Q8H PRN (Reason: nausea and vomiting) 5 Days Qty: 30 0RF No Action ibuprofen 800 mg tablet 800 mg PO Q8H Qty: 20 0RF omeprazole 40 mg capsule,delayed release(DR/EC) 40 mg PO DAILY Qty: 30 2RF aspirin 81 mg tablet,delayed release (DR/EC) See Rx Instructions .ROUTE .COMPLEX Qty: 30 0RF Dose Instruction: TAKE 1 TABLET BY MOUTH ONCE DAILY FOR HEART HEALTH Rx Instructions: TAKE 1 TABLET BY MOUTH ONCE DAILY FOR HEART HEALTH bisoprolol fumarate 5 mg tablet 5 mg PO DAILY Rx Instructions: TAKE 1 TABLET BY MOUTH ONCE DAILY FOR HYPERTENSION ibuprofen 800 mg tablet 800 mg PO Q8H PRN (Reason: pain) Qty: 12 0RF ondansetron 4 mg tablet,disintegrating 4 mg PO Q8H PRN (Reason: nausea and vomiting) 4 Days Qty: 12 0RF ibuprofen 800 mg tablet 800 mg PO Q8H PRN (Reason: pain) Qty: 20 0RF chlorhexidine gluconate 2 % liquid 1 applic topical DAILY Qty: 118 0RF Rx Instructions: Cleanse affected area daily. clindamycin phosphate 1 % gel, once daily 1 applic topical DAILY Qty: 75 0RF Rx Instructions: Apply to affected area daily. sulfamethoxazole-trimethoprim [Bactrim DS] 800-160 mg tablet 1 tab PO BID 7 Days Qty: 14 0RF acetaminophen 500 mg capsule 500 mg PO Q6H PRN (Reason: pain) 7 Days Qty: 28 0RF doxycycline monohydrate 100 mg capsule 100 mg PO BID 7 Days Qty: 14 0RF clindamycin HCl 300 mg capsule 300 mg PO Q8H 7 Days Qty: 21 0RF ondansetron 4 mg tablet,disintegrating 4 mg PO Q6H PRN (Reason: nausea and vomiting) Qty: 10 0RF cefdinir 300 mg capsule 300 mg PO BID 10 Days Qty: 20 0RF phenazopyridine 100 mg tablet 100 mg PO Q8H PRN (Reason: pain) Qty: 6 0RF metronidazole 500 mg tablet 500 mg PO BID 7 Days Qty: 14 0RF Referrals Follow up/Referrals: Provider,Referral, [Primary Care Provider, Medical] - See instructions Activity Restrictions/Add. Instructions Additional Instructions/Restrictions: Please take antibiotics as prescribed for treatment of urinary tract infection. Please follow-up with your primary care provider. Please return to the emergency department if you develop any new or worsening symptoms or become concerned for your health. Clinical Impressions Clinical Impression: Pyelonephritis, Enteritis Instructions Patient Instructions: DI for Urinary Tract Infection (UTI), DI for Urinary Tract Infection in Children Print Language Print Language: Arabic Discharge ED Provider: Camacho Samano General Adult HPI General Chief complaint: Urogenital-Female Stated complaint: back pain, blood in urine Time Seen by Provider: 05/14/25 01:36 History of Present Illness HPI narrative: 29-year-old female with extensive history of kidney stones and this present for acute onset left sided pain and abdominal pain. She reports it feels like when she has had kidney stones in the past. She reports that she is supposed to have a stent placed recently but they were not able to for some reason. She did not take anything prior to arrival. Related Data Home Medications ?Medication ?Instructions ?Recorded ?Confirmed bisoprolol fumarate 5 mg tablet 5 mg PO DAILY 07/18/24 12/03/24 Previous Rx's ?Medication ?Instructions ?Recorded ibuprofen 800 mg tablet 800 mg PO Q8H #20 tabs 10/31 omeprazole 40 mg capsule,delayed 40 mg PO DAILY #30 ca ps 11/23/24 release aspirin 81 mg tablet,delayed See Rx Instructions .Rout e 12/12/24 release .COMPLEX #30 tabs ibuprofen 800 mg tablet 800 mg PO Q8H PRN pain #12 t abs 12/15/24 ondansetron 4 mg disintegrating 4 mg PO Q8H PRN nausea and 12/15/24 tablet vomiting 4 days #12 tabs ibuprofen 800 mg tablet 800 mg PO Q8H PRN pain #20 t abs 12/30/24 chlorhexidine gluconate 2 % 1 applic topical DAILY #11 8 mL 01/09/25 topical liquid clindamycin phosphate 1 % topical 1 applic topical SUMMER LY #75 mL 01/09/25 gel, once daily sulfamethoxazole 800 1 tab PO BID 7 days #14 tabs 01/09/25 mg-trimethoprim 160 mg tablet (Bactrim DS) clindamycin HCl 300 mg capsule 300 mg PO Q8H 7 days #2 1 caps 02/04/25 acetaminophen 500 mg capsule 500 mg PO Q6H PRN pain 7 days #28 03/15/25 caps doxycycline monohydrate 100 mg 100 mg PO BID 7 days #1 4 caps 03/15/25 capsule cefdinir 300 mg capsule 300 mg PO BID 10 days #20 ca ps 04/19/25 ondansetron 4 mg disintegrating 4 mg PO Q6H PRN nausea and 04/19/25 tablet vomiting #10 tabs phenazopyridine 100 mg tablet 100 mg PO Q8H PRN pain 6 doses #6 04/19/25 tabs metronidazole 500 mg tablet 500 mg PO BID 7 days #14 t abs 04/20/25 ondansetron HCl 4 mg tablet 4 mg PO Q8H PRN nausea and 05/14/25 vomiting 5 days #30 tabs sulfamethoxazole 800 1 tab PO BID 7 days #14 tabs 05/14/25 mg-trimethoprim 160 mg tablet Allergies Allergy/AdvReac Type Severity Reaction Status Date / Time ketorolac (From TORADOL) Allergy Mild Hives Verified 12/03/24 12:39 tramadol (TRAMADOL) Allergy Mild Hives Verified 12/03/24 12:39 diphenhydramine (From Allergy Unknown I-HIVES Verified 12/03/24 12:39 BENADRYL) [facility] Disclaimer: The information contained in this section may have been updated after the patient was seen, as this information can be updated by other users. Medical History Thyromegaly Chronic GERD Globus sensation Kidney stones Patient left without being seen Postoperative pain Otitis media Abdominal pain Foot callus Cellulitis Patient left without being seen Trichomonal vaginitis Postoperative abdominal pain Dysmenorrhea Menorrhagia Right lower quadrant pain Dysfunctional uterine bleeding Flank pain Palpitations SOB (shortness of breath) Concussion without loss of consciousness Microhematuria Acute right flank pain Degenerative joint disease (DJD) of lumbar spine Patient left without being seen Otitis externa Lumbar disc disease Tachycardia Back pain Dyspnea Chest pain Atypical chest pain Ovarian cyst Trichomonal cystitis Abdominal pain of unknown etiology Bilious vomiting Vomiting Closed fracture of tuft of distal phalanx of finger Pelvic pain UTI (urinary tract infection) Renal colic on left side Endometriosis Surgical History Hx of tonsillectomy History of cholecystectomy History of appendectomy H/O hysterectomy with oophorectomy [place] teeth extracted S/P appendectomy S/P hysterectomy Family History Mother Diabetes Hypertension Grandmother Cancer Father Cancer Hypertension Diabetes Social History Smoking Status: Current every day smoker tobacco type: cigarettes packs per day: 1 alcohol intake: never counseling provided: none substance use type: denies use current occupational status: employed and other Travel in the last 8 weeks?: None household members: spouse housing: house current occupational exposures/hazards: No caffeine: Yes Have you lived/traveled outside US in past 30 days?: No Contact w/someone who lives/traveled outside US past 30 days?: No Exposure to someone with infectious disease in past 14 days?: No Do you have a fever (greater than 100.4 F or 38 C)?: No Have you tested positive for COVID-19?: No Exposed to someone with COVID-19 in past 14 days?: No Do you have a sore throat?: No Do you have a cough?: No Do you have any weakness?: No Do you have any diarrhea?: No Are you experiencing any unusual bleeding?: Yes Do you have any muscle aches/pain?: Yes Do you have any abdominal pain?: No Are you experiencing loss of taste or smell?: No Other Medical History Have you received the Flu Vaccine for this season: No Have you received the Pneumonia Vaccine: No ROS Obtained: Yes All systems reviewed & no additional complaints except as documented Physical Exam General General appearance: alert and in no apparent distress Head Head exam: atraumatic and normocephalic Eye Eye exam: Present normal appearance, PERRL and EOMI ENT ENT exam: Present normal oropharynx and normal external ear exam Neck Neck exam: Present normal inspection and full ROM Chest Chest inspection: Present normal inspection and symmetric chest wall rise; Absent tenderness Respiratory Respiratory exam: Present normal lung sounds bilaterally; Absent respiratory distress Cardiovascular Cardiovascular exam: Present regular rate and normal rhythm Abdominal Exam Abdominal exam: Present soft; Absent distention, tenderness or guarding Extremities Exam Extremities exam: Present normal inspection; Absent edema or joint swelling Back Exam Back exam: Present normal inspection; Absent tenderness Neurological Exam Neurological exam: Present alert and oriented X3; Absent motor sensory deficit Psychiatric Psychiatric exam: Present normal affect and normal mood Skin Skin exam: Present warm, dry and normal color Lymphatic Lymphatic Findings: no adenopathy Medical Decision Making Medical Records Medical records reviewed: Yes I reviewed the patient's medical records. Screening: Per USPSTF and CDC recommendations, given the prevalence of disease in our region, it is our hospital?s policy to screen for HIV and viral Hepatitis for all patients aged 18 and over and those with ongoing risk factors. Aram Inquiry Pt receiving controlled substance: No Aram was queried for this patient: No Vital Signs: 05/14/25 01:45 05/14/25 02:22 Temperature 98.1 F Temperature Source Oral Pulse Rate 84 Pulse Rate [Right] 85 Respiratory Rate 16 16 Blood Pressure 108/74 L Blood Pressure [Right Arm] 128/95 H Blood Pressure Mean [Right Arm] 106 02 Sat by Pulse Oximetry 98 98 Oxygen Delivery Method Room Air Room Air Lab Data Lab results reviewed: Yes I reviewed the patient's lab results. Lab Results 05/14/25 01:38: Urine Color Yellow, Urine Appearance Clear, Urine pH 6.0, Ur Specific [place] 1.025, Urine Protein Negative, Urine Glucose (UA) Negative, Urine Ketones Negative, Urine Blood 2+ A, Urine Nitrate Negative, Urine Bilirubin Negative, Urine Urobilinogen 0.2, Ur Leukocyte Esterase 2+ A, Urine RBC 5-10, Urine WBC 10-20, Ur Squamous Epith Cells Occasional, Urine Bacteria None 05/14/25 02:04: WBC 7.9, RBC 4.18 L, Hgb 13.5, Hct 41.5, MCV 99.3 H, MCH 32.3 H, MCHC 32.5, RDW 12.1, Plt Count 320, MPV 10.9 H, Neut % (Auto) 53.3, Lymph % (Auto) 36.9, [place] % (Auto) 7.5, Eos % (Auto) 1.9, Baso % (Auto) 0.3, Neut # (Auto) 4.2, Lymph # (Auto) 2.9, [place] # (Auto) 0.6, Eos # (Auto) 0.2, Baso # (Auto) 0.0, Sodium 139, Potassium 3.6, Chloride 109 H, Carbon Dioxide 25, Anion Gap 8.6, BUN 9, Creatinine 0.70, Estimated Creat Clear 187, Estimated GFR 99, Est GFR ( Amer) 120, Glucose 100, Calcium 9.2, Total Bilirubin 0.3, AST 23, ALT 18, Alkaline Phosphatase 61, Total Protein 7.1, Albumin 4.3, Globulin 2.8, Albumin/Globulin Ratio 1.5 05/14/25 02:04 05/14/25 02:04 Orders (Tests/Meds): ED MEDICATIONS Generic Name Dose Route Start Last Admin Trade Name Freq PRN Reason Stop Dose Admin Sodium Chloride 1,000 mls @ 999 mls/hr 05/14/25 01:45 05/14/25 02:18 Sod Chlor 0.9% 1000ml Bag IV 05/14/25 02:45 999 mls/hr .Q1H1M MARGUERITE Administration Ceftriaxone Sodium 1 gm/ 50 mls @ 100 mls/hr 05/14/25 02:07 05/14/25 02:18 Sodium Chloride IV 05/14/25 02:36 100 mls/hr ONCE ONE Administration Discontinued Medications Generic Name Dose Route Start Last Admin Trade Name Freq PRN Reason Stop Dose Admin Acetaminophen 1,000 mg 05/14/25 01:40 05/14/25 02:18 Acetaminophen 500mg Tab PO 05/14/25 01:41 1,000 mg ONCE ONE Administration Morphine Sulfate 4 mg 05/14/25 01:40 05/14/25 02:18 Morphine 4mg/Ml Syringe IV 05/14/25 01:41 4 mg ONCE ONE Administration Ondansetron HCl 4 mg 05/14/25 01:40 05/14/25 02:18 Ondansetron 4mg/2ml Vial IV 05/14/25 01:41 4 mg ONCE ONE Administration ORDERS Category Date Time Status CT abdomen pelvis wo con Stat Cat Scan 05/14/25 01:40 Completed CBC w/Auto Diff [Complete Blood Count Auto Diff] Stat Lab 05/14/25 02:04 Completed CMP [Comprehensive Metabolic Panel] Stat Lab 05/14/25 02:04 Completed UA [Urinalysis and Microscopic] Stat Lab 05/14/25 01:38 Completed Urine Culture Stat Micro 05/14/25 01:38 Received Medical Decision Narrative: 29-year-old female with extensive history of pyelonephritis and kidney stones presents for acute left-sided flank pain. History was obtained via interactive discussion with patient. On arrival, patient is [afebrile, hemodynamically stable, satting appropriately, alert, oriented x4, GCS 15], moving all extremities spontaneously. Full physical exam performed and significant for left flank tenderness. Differential includes but is not limited to obstructive ureterolithiasis, pyelonephritis, enteritis, bowel obstruction. Patient was given morphine Zofran Tylenol, 1 L fluid for symptomatic management and correction of underlying abnormalities. Workup initiated including CT Noncon of the abdomen pelvis, urinalysis, CBC CMP. On re-evaluation, patient reports symptomatic improvement Laboratory workup independently interpreted by me and significant for urinalysis consistent with infection.. Imaging independently interpreted by me and significant for no evidence of kidney stones, does show enteritis in the left upper quadrant. See radiology read for full review of final results. Given patient history, exam and workup, patient's presentation most likely represents left-sided pyelonephritis and possible enteritis. Patient was given dose of ceftriaxone in ED for complicated UTI. Patient was discharged prescription for Bactrim and Zofran. Return precautions given. Procedures Risk/Benefits of Procedure(s) Were Explained: Yes Critical Care Critical Care Time Critical Care Time: No
--- NOTE | 2025-05-14 01:40 | CT_ITS ---
PROCEDURE INFORMATION: Exam: CT Abdomen And Pelvis Without Contrast Exam date and time: 05/14/2025 1:52 AM Age: 29 years old Clinical indication: Abdominal pain; Flank; Upper; Prior surgery; Surgery date: 6+ months; Surgery type: Hysterectomy, appendicitis; Additional info: Flank pain TECHNIQUE: Imaging protocol: Computed tomography of the abdomen and pelvis without contrast. Radiation optimization: All CT scans at this facility use at least one of these dose optimization techniques: automated exposure control; mA and/or kV adjustment per patient size (includes targeted exams where dose is matched to clinical indication); or iterative reconstruction. COMPARISON: CT ABDOMEN PELVIS W CON 04/19/2025 1:16 AM FINDINGS: Lungs: Right lower lobe granuloma. Heart: Base of heart is unremarkable as visualized. Liver: Normal. No mass. Gallbladder and biliary ducts: Cholecystectomy. Pancreas: Normal. No ductal dilation. Spleen: Splenic granulomas. Adrenal glands: Normal. No mass. Kidneys and ureters: Bilateral nonobstructive nephrolithiasis. Stomach and bowel: Few prominent fluid-filled loops of small bowel in the left upper quadrant without obstructive appearance. Appendix: Appendectomy changes. Intraperitoneal space: Unremarkable. No free air. No significant fluid collection. Vasculature: Unremarkable. No abdominal aortic aneurysm. Lymph nodes: Unremarkable. No enlarged lymph nodes. Urinary bladder: Unremarkable as visualized. Reproductive: Hysterectomy. Bones/joints: Few bone islands are noted in the right humeral head and anterior right pelvis. Soft tissues: Unremarkable. IMPRESSION: 1. Few prominent fluid-filled loops of small bowel in the left upper quadrant without obstruction. Could be related to enteritis. Correlate clinically. 2. Nonobstructive nephrolithiasis bilaterally.
--- OUTSIDE RECORDS SUMMARY | 2025-05-14 01:42 | XMS_ITS | Clinical Summary ---
Author Organization Healthcare Address [address] [place] [address] Care Team Providers Care Anti Tank Missileman Name Role Phone Pcp, No Primary Care [...] EDT Emergency P[facility] S Emergency Department [address] [place] [address] Mary Prater MD Pain, dental [...] of 2 - 13+ 2-dose series) 2008 [facility]- SDOH Screenings 2013 [facility]-Adult SDOH Screenings 2013 [facility]-DTaP,Tdap,and Td Vaccine s (1 - Tdap) 2014 [facility]-Hepatitis B Vaccines (1 of 3 - 19+ 3-dose series) 2014 [facility]-Pap Smear 2016 HPV Vaccines (1 - 3-dose SCD M series) 2022 [id number] Vaccine (1 - 20 24-25 season) 2024 [...] Insurance [employer] Care Teams Anti Tank Missileman Relationship Specialty Start Date End Date Pcp, Alyson [address] [place] [address] PCP - General Family Medicine 04/07/25
--- OUTSIDE RECORDS SUMMARY | 2025-05-14 01:42 | XMS_ITS | Clinical Summary ---
Author Organization [employer] ([place], [place], [place], [place]) Address [address] [place] [address] Care Team Providers Care Reserve Officer Name Role Phone Unavailable Primary Care Provider [...] Date Tashi rded Speak language other than Marshallese at home Not on file 02/02/2024 Want [...]
--- OUTSIDE RECORDS SUMMARY | 2025-05-14 01:42 | XMS_ITS | Referral Summary ---
Author Organization [employer] ([place], [place], [place], [place]) Address [address] [place] [address] Care Team Providers Care Ignition Expert Name Role Phone Unavailable Primary Care Provider [...] Date Tashi rded Speak language other than Cypriot at home Not on file 02/02/2024 Want [...]
--- OUTSIDE RECORDS SUMMARY | 2025-05-14 01:42 | XMS_ITS | Encounter Summary ---
Author Organization Healthcare Address [address] [place] [address] Care Team Providers Care Director Of Quality Name Role Phone Pcp, No Primary Care [...] on filedocumented in this encounter Care Teams Director Of Quality Relationship Specialty Start Date End Date Pcp, No [address] [place] [address] PCP - General Family Medicine 04/07/25 documented as of this encounter
[2025-05-14 01:45] VITALS: BP 128/95; PULSE 85; RESP 16; TEMP 36.7; O2SAT 98; BMI 38.9
[2025-05-14 01:45] LABS: Microscopic, Urine URINE MICROSCOPIC (MICROSCOPIC)
[2025-05-14 01:51] LABS: Bilirubin,Urine Negative (Negative); Color,Urine YELLOW (Yellow); Glucose,Urine (UA) Negative (Negative); Ketones,Urine Negative (Negative); Leukocyte Esterase,Urine 2+ (Negative); PH,Urine 6.0 (5.0-8.5); Protein,Urine Negative (Negative); Specific Gravity, Urine 1.025 (1.005-1.030); Urobilinogen,Urine 0.2 EU/dl (0.2)
[2025-05-14 02:00] LABS: Squamous Epithelial Cell,Urine Occasional #/hpf (0-5)
[2025-05-14 02:09] LABS: Hematocrit 41.5 % (37.0-47.0); Hemoglobin 13.5 g/dL (12.2-16.2); Immature Granulocytes % 0.1 %; Mean Corpuscular HGB Conc 32.5 g/dL (31.8-35.4); Mean Corpuscular Hemoglobin 32.3 pg (27.0-31.2); Mean Corpuscular Volume 99.3 fl (81-99); Nucleated Red Blood Cells % 0 %; Platelet Count 320 K/mm3 (142-424); Red Blood Count 4.18 M/mm3 (4.20-5.40); Red Cell Distribution Width-SD 44.3 fL; White Blood Count 7.9 K/mm3 (4.8-10.8)
[2025-05-14 02:18] LABS: Albumin Level 4.3 g/dl (3.5-5.0); Chloride 109 mmol/L (98-107)
[2025-05-14] MEDS: 0.9 % SODIUM CHLORIDE 1000ML 1,000 ML 999 ML IV (02:18)
[2025-05-14] MEDS: CEFTRIAXONE 1 GM 1 GM in 0.9 % SODIUM CHLORIDE 50 ML IV (02:18)
[2025-05-14] MEDS: MORPHINE 4MG/ML SYRINGE 4 MG IV (02:18)
[2025-05-14] MEDS: ONDANSETRON 4MG/2ML VIAL 4 MG IV (02:18)
[2025-05-14] MEDS: ACETAMINOPHEN 500MG TAB 1000 MG PO (02:18)
[2025-05-14 02:19] LABS: Potassium 3.6 mmoL/L (3.5-5.1); Sodium 139 mmol/L (136-145)
[2025-05-14 02:21] LABS: Alanine Aminotransferase 18 U/L (12-78); Anion Gap 8.6 mEq/L (5-15); Aspartate Amino Transferase 23 U/L (14-36); Blood Urea Nitrogen 9 mg/dl (7-17); Carbon Dioxide 25 mmol/L (22.0-30.0); Creatinine Clearance Estimated 187 mL/min (50-200); Creatinine,Serum 0.70 mg/dl (0.52-1.04); Estimated Glomerular Filt Rate 99 ml/min (>60); GFR (African American) 120 ML/MIN (>60)
[2025-05-14 02:22] VITALS: BP 108/74; PULSE 84; RESP 16; O2SAT 98
[2025-05-14 02:22] LABS: Albumin/Globulin Ratio 1.5 (1.1-1.8); Alkaline Phosphatase 61 U/L (38-126); Bilirubin,Total 0.3 mg/dl (0.2-1.3); Calcium 9.2 mg/dl (8.4-10.2); Globulin 2.8 g/dL (1.3-3.2); Glucose 100 mg/dl (74-100); Total Protein,Serum 7.1 g/dl (6.3-8.2)
[2025-05-14 02:42] VITALS: BP 107/72; PULSE 73; RESP 17; TEMP 36.9; O2SAT 98
--- NOTE | 2025-05-17 18:32 | PC.NURSE ---
URINE CULTURE DISCUSSED WITH DR MORILLO, PT ON BACTRIM. NO NEW ORDERS
== END 2025-05-14 02:43 | disposition home or self-care (01) ==
PROVIDERS: Emergency Provider Emergency Medicine
DX: N10 Acute pyelonephritis (principal); R10.32 Left lower quadrant pain; K52.9 Noninfective gastroenteritis and colitis, unspecified; F17.210 Nicotine dependence, cigarettes, uncomplicated
CPT/HCPCS: 74176; 80053; 81001; 85025; 87086; 87088; 87186; 96365; 96375; 99284; J0696; J2270; J2405; J7030

== ENCOUNTER 2025-05-17 15:36 | Emergency (ER) | payer OTHER, SELFPAY ==
--- OUTSIDE RECORDS SUMMARY | 2025-04-07 17:29 | XMS_ITS | Encounter Summary ---
Author Organization Healthcare Address [address] [place] [address] Care Team Providers Care Clerk Manager Name Role Phone Pcp, No Primary Care Provider Unavailabl e Reason for Visit * Reason Comments Dental Pain Encounter Details Date Type Department Care Team (Late st Contact Info) Description 04/07/2025 5:29 PM EDT - 04/07/2025 7:11 PM EDT Emergency [facility] Emergency Department [address] [place] [address] Mary Prater MD [address] [place] [address] Pain, dental (Primary Dx) Discharge [...] appt in 2 days and went to [facility] ER 2 days ago and was prescribed amoxicillin with no missed doses and a narcotic script. Said she ran out of her narcotic yesterday and today she tried APAP without relief. Reports the ER doctor earlier this wk told her to go to the nearest ER if her pain got worse. The patient offers unprompted that she was in [place] today to go to a [email or web address] baseball game and that is why she [...] behavior No indication of Ludwigs angina, bacteremia, INFORMATION RESOURCES DIRECTOR, facial cellulitis, nor ANUG. It is fortunate that she has a dentist appt on the next business day. Per chart review, patient has 17 short course narcotic scripts in the last 7.5 months with mult prescribers. Additionally per [employer], the [place] are playing an away game today in [place], thus it is unlikely that she was [...] RN) documented in this encounter Care Teams Clerk Manager Relationship Specialty Start Date End Date Pcp, Alyson [address] [place] [address] PCP - General Family Medicine 04/07/25 documented as of this encounter
--- OUTSIDE RECORDS SUMMARY | 2025-05-22 10:01 | XMS_ITS | Clinical Summary ---
Author Organization Healthcare Address [address] [place] [address] Care Team Providers Care Ampoule Sealer Name Role Phone Pcp, No Primary Care [...] EDT Emergency PAV S Emergency Department [address] [place] [address] Mary Prater MD Pain, dental [...] (1 - 3-dose SCD M series) 2022 WUP-[id number]-87 Vaccine (1 - 20 24-25 season) 2025 UKY-Influenza Vaccine (#1) 2025 UKY-Zoster Vaccines (1 [...] Insurance [employer] Care Teams Ampoule Sealer Relationship Specialty Start Date End Date Pcp, Alyson [address] [place] [address] PCP - General Family Medicine 04/07/25
--- OUTSIDE RECORDS SUMMARY | 2025-05-22 10:01 | XMS_ITS | Referral Summary ---
Author Organization [facility] ([place], [place], [place]) Address [address] [place] [address] Care Team Providers Care Police Judge Name Role Phone Unavailable Primary Care Provider [...]
--- OUTSIDE RECORDS SUMMARY | 2025-05-22 10:01 | XMS_ITS | Encounter Summary ---
Author Organization Healthcare Address [address] [place] [address] Care Team Providers Care Tank Cleaning Supervisor Name Role Phone Pcp, No Primary Care [...] on filedocumented in this encounter Care Teams Tank Cleaning Supervisor Relationship Specialty Start Date End Date Pcp, No [address] [place] [address] PCP - General Family Medicine 04/07/25 documented as of this encounter
--- OUTSIDE RECORDS SUMMARY | 2025-05-22 10:01 | XMS_ITS | Clinical Summary ---
Author Organization [employer] [facility] ([place], [place], [place], [place]) Address [address] [place] [address] Care Team Providers Care Websphere Consultant Name Role Phone Unavailable Primary Care Provider [...] Date Tashi rded Speak language other than [place]ese at home Not on file 02/02/2024 Want [...] 2013 Lipid Panel 2015 Pap Smear 2016 Tobacco Cessation Counseling and Screening (12+) 01/2201/23/2024 COVID-19 VACCINE ( - season) 2025 Influenza Vaccine (#1) 2025
--- OUTSIDE RECORDS SUMMARY | 2025-05-22 10:02 | XMS_ITS | Clinical Summary ---
Author Organization [facility] Address [address] [place] [address] Care Team Providers Care Matcher Name Role Phone Jose Bailey MD Primary Care Provider [phone] Allergies Active Allergy Reactions Criticality Noted Date [...] to complete this topic Insurance Care Teams Matcher Relationship Specialty Start Date End Date Jose Bailey MD [address] [place] [address] PCP - General Family Medicine 10/18/20
== END 2025-05-17 16:00 | disposition left against medical advice (07) ==
LOC: ER 05-22 09:59
PROVIDERS: Emergency Provider Emergency Medicine
DX: Z53.21 Procedure and treatment not carried out due to patient leaving prior to being seen by health care provider (principal)
CPT/HCPCS: 99211

== ENCOUNTER 2025-05-18 20:51 | Emergency (ER) | payer OTHER, SELFPAY ==
--- OUTSIDE RECORDS SUMMARY | 2025-04-07 17:29 | XMS_ITS | Encounter Summary ---
Author Organization Healthcare Address [address] [place] [address] Care Team Providers Care Business Continuity Analyst Name Role Phone Pcp, No Primary Care Provider Unavailabl e Reason for Visit * Reason Comments Dental Pain Encounter Details Date Type Department Care Team (Late st Contact Info) Description 04/07/2025 5:29 PM EDT - 04/07/2025 7:11 PM EDT Emergency [facility] Emergency Department [address] [place] [address] Mary Prater MD [address] [place] [address] Pain, dental (Primary Dx) Discharge [...] appt in 2 days and went to [facility] 2 days ago and was prescribed amoxicillin with no missed doses and a narcotic script. Said she ran out of her narcotic yesterday and today she tried APAP without relief. Reports the ER doctor earlier this wk told her to go to the nearest ER if her pain got worse. The patient offers unprompted that she was in [place] today to go to a [employer] baseball game and that is why she [...] behavior No indication of Ludwigs angina, bacteremia, CERAMIC SAW TENDER, facial cellulitis, nor ANUG. It is fortunate that she has a dentist appt on the next business day. Per chart review, patient has 17 short course narcotic scripts in the last 7.5 months with mult prescribers. Additionally per [employer], the [place] are playing an away game today in [place], thus it is unlikely that she was [...] RN) documented in this encounter Care Teams Business Continuity Analyst Relationship Specialty Start Date End Date Pcp, Alyson [address] [place] [address] PCP - General Family Medicine 04/07/25 documented as of this encounter
[2025-05-18 20:55] VITALS: BP 125/76; PULSE 92; RESP 18; TEMP 36.6; O2SAT 98; BMI 38.9
--- OUTSIDE RECORDS SUMMARY | 2025-05-18 21:04 | XMS_ITS | Encounter Summary ---
Author Organization Healthcare Address [address] [place] [address] Care Team Providers Care Redipper Name Role Phone Pcp, No Primary Care [...] on filedocumented in this encounter Care Teams Redipper Relationship Specialty Start Date End Date Pcp, No [address] [place] [address] PCP - General Family Medicine 04/07/25 documented as of this encounter
--- OUTSIDE RECORDS SUMMARY | 2025-05-18 21:04 | XMS_ITS | Clinical Summary ---
Author Organization Healthcare Address [address] [place] [address] Care Team Providers Care Technician Anatomic Pathology Name Role Phone Pcp, No Primary Care [...] EDT Emergency PAV S Emergency Department [address] [place] [address] Mary Prater MD Pain, dental [...] (1 - 3-dose SCD M series) 2022 [id number] Vaccine (1 - 20 24-25 season) 2024 [...] Insurance [employer] Care Teams Technician Anatomic Pathology Relationship Specialty Start Date End Date Pcp, Alyson [address] [place] [address] PCP - General Family Medicine 04/07/25
--- OUTSIDE RECORDS SUMMARY | 2025-05-18 21:05 | XMS_ITS | Clinical Summary ---
Author Organization [facility] Address [address] [place] [address] Care Team Providers Care Motion Picture Photographer Name Role Phone Jose Bailey MD Primary Care Provider [phone] Allergies Active Allergy Reactions Criticality Noted Date [...] SCREENING 08/08/2018 COVID-19 Vaccine (2023-2 5 season) 2025 INFLUENZA VACCINE 06/13/2025 Pneumococcal Vaccine 0-49 Aged Out No longer eligible based on patient's age to complete this topic Insurance Care Teams Motion Picture Photographer Relationship Specialty Start Date End Date Jose Bailey MD [address] [place] [address] PCP - General Family Medicine 10/18/20
[2025-05-18 21:08] LABS: Color,Urine YELLOW (Yellow); Glucose,Urine (UA) Negative (Negative); Ketones,Urine TRACE (Negative); Leukocyte Esterase,Urine TRACE (Negative); Microscopic, Urine URINE MICROSCOPIC (MICROSCOPIC); PH,Urine 5.5 (5.0-8.5); Protein,Urine TRACE (Negative); Specific Gravity, Urine >= 1.030 (1.005-1.030); Urobilinogen,Urine 0.2 EU/dl (0.2)
[2025-05-18 21:13] VITALS: BP 115/81; PULSE 89; RESP 16; TEMP 36.9; O2SAT 99
[2025-05-18 21:16] LABS: Bilirubin,Urine 1+ (Negative)
[2025-05-18 21:17] LABS: Bacteria,Urine 1+ /lpf; Squamous Epithelial Cell,Urine 20-50 #/hpf (0-5)
--- NOTE | 2025-05-18 21:24 | CT_ITS ---
PROCEDURE INFORMATION: Exam: CT Abdomen And Pelvis With Contrast Exam date and time: 05/18/2025 10:31 PM Age: 29 years old Clinical indication: Abdominal pain TECHNIQUE: Imaging protocol: Computed tomography of the abdomen and pelvis with contrast. Radiation optimization: All CT scans at this facility use at least one of these dose optimization techniques: automated exposure control; mA and/or kV adjustment per patient size (includes targeted exams where dose is matched to clinical indication); or iterative reconstruction. Contrast material: ISOVUE; Contrast volume: 75 ml; Contrast route: IV; COMPARISON: CT ABDOMEN PELVIS WO CON 05/14/2025 1:52 AM FINDINGS: Liver: Normal. No mass. Gallbladder and biliary ducts: Cholecystectomy. No bile duct dilatation. Pancreas: Normal. No ductal dilation. Spleen: Normal. No splenomegaly. Adrenal glands: Normal. No mass. Kidneys and ureters: Punctate bilateral renal stones. Stomach and bowel: Unremarkable. No obstruction. No mucosal thickening. Appendix: Appendectomy. Intraperitoneal space: Unremarkable. No free air. No significant fluid collection. Vasculature: Unremarkable. No abdominal aortic aneurysm. Lymph nodes: Unremarkable. No enlarged lymph nodes. Urinary bladder: Unremarkable as visualized. Reproductive: Hysterectomy. Bones/joints: Unremarkable. No acute fracture. Soft tissues: Unremarkable. IMPRESSION: Punctate bilateral renal stones.
--- NOTE | 2025-05-18 21:32 | ED_ITS ---
<Statement entered by Sophy Campos MD - 05/18/25 23:18> I was consulted by the JOVANNY, and we discussed the complexity of the problems being addressed. I approved the treatment and management plan for this patient's care in the emergency department, thus performing a substantive portion of the medical decision making. Sophy Campos MD, SUZY, FACEP Discharge Plan Disposition Patient Disposition: Home, Self-Care Condition: Good Prescriptions Prescriptions: No Action ibuprofen 800 mg tablet 800 mg PO Q8H Qty: 20 0RF omeprazole 40 mg capsule,delayed release(DR/EC) 40 mg PO DAILY Qty: 30 2RF aspirin 81 mg tablet,delayed release (DR/EC) See Rx Instructions .ROUTE .COMPLEX Qty: 30 0RF Dose Instruction: TAKE 1 TABLET BY MOUTH ONCE DAILY FOR HEART HEALTH Rx Instructions: TAKE 1 TABLET BY MOUTH ONCE DAILY FOR HEART HEALTH bisoprolol fumarate 5 mg tablet 5 mg PO DAILY Rx Instructions: TAKE 1 TABLET BY MOUTH ONCE DAILY FOR HYPERTENSION ibuprofen 800 mg tablet 800 mg PO Q8H PRN (Reason: pain) Qty: 12 0RF ondansetron 4 mg tablet,disintegrating 4 mg PO Q8H PRN (Reason: nausea and vomiting) 4 Days Qty: 12 0RF ibuprofen 800 mg tablet 800 mg PO Q8H PRN (Reason: pain) Qty: 20 0RF chlorhexidine gluconate 2 % liquid 1 applic topical DAILY Qty: 118 0RF Rx Instructions: Cleanse affected area daily. clindamycin phosphate 1 % gel, once daily 1 applic topical DAILY Qty: 75 0RF Rx Instructions: Apply to affected area daily. sulfamethoxazole-trimethoprim [Bactrim DS] 800-160 mg tablet 1 tab PO BID 7 Days Qty: 14 0RF acetaminophen 500 mg capsule 500 mg PO Q6H PRN (Reason: pain) 7 Days Qty: 28 0RF doxycycline monohydrate 100 mg capsule 100 mg PO BID 7 Days Qty: 14 0RF clindamycin HCl 300 mg capsule 300 mg PO Q8H 7 Days Qty: 21 0RF ondansetron 4 mg tablet,disintegrating 4 mg PO Q6H PRN (Reason: nausea and vomiting) Qty: 10 0RF cefdinir 300 mg capsule 300 mg PO BID 10 Days Qty: 20 0RF phenazopyridine 100 mg tablet 100 mg PO Q8H PRN (Reason: pain) Qty: 6 0RF metronidazole 500 mg tablet 500 mg PO BID 7 Days Qty: 14 0RF sulfamethoxazole-trimethoprim 800-160 mg tablet 1 tab PO BID 7 Days Qty: 14 0RF ondansetron HCl 4 mg tablet 4 mg PO Q8H PRN (Reason: nausea and vomiting) 5 Days Qty: 30 0RF Referrals Follow up/Referrals: Provider,Referral, MD [Primary Care Provider, Medical] - See instructions Activity Restrictions/Add. Instructions Additional Instructions/Restrictions: You were evaluated in the ER and are believed to be appropriate for discharge at this time. Continue any home medications as previously prescribed. Drink plenty of water. Make an appointment with your primary care doctor for reevaluation and to discuss small amounts of blood in your urine. Return to the ER with any new, worsening, or otherwise concerning symptoms. Clinical Impressions Clinical Impression: Flank pain Print Language Print Language: Samoan Discharge ED Provider: Sophy Campos General Adult HPI <Callie Posadas (ED), UNDERWRITING CLERK - Last Filed: 05/18/25 22:04> General Chief complaint: PAIN Stated complaint: Lumbar Pain; Possible Kidney Stone Time Seen by Provider: 05/18/25 21:18 Mode of Arrival: Ambulatory Source of Information: Patient Description of Symptoms (Recalled from ER Triage Doc. by RN): jocy presents to the ED with left flank pain that radiates to the right side at times as well. jocy has had previous stones and kidney stents as well. Patient endorses blood in her urine, trouble peeing, but no burning. History of Present Illness HPI narrative: 29-year-old female presents to the ED with left flank pain that radiates to the other side as well. Patient tells me that she was here on Wednesday and given antibiotics for her UTI that she has been taken since Wednesday. She urinated tonight at home and had blood. She says her pain has increased. She last had a stent placed 2 months ago by [facility] [place]. She says typically her stones need to be stented. She was given Bactrim. She has also been taken Zofran. She denies fevers. No other symptoms at this time. Related Data Home Medications ?Medication ?Instructions ?Recorded ?Confirmed bisoprolol fumarate 5 mg tablet 5 mg PO DAILY 07/18/24 12/03/24 Previous Rx's ?Medication ?Instructions ?Recorded ibuprofen 800 mg tablet 800 mg PO Q8H #20 tabs 10/31 omeprazole 40 mg capsule,delayed 40 mg PO DAILY #30 ca ps 11/23/24 release aspirin 81 mg tablet,delayed See Rx Instructions .Rout e 12/12/24 release .COMPLEX #30 tabs ibuprofen 800 mg tablet 800 mg PO Q8H PRN pain #12 t abs 12/15/24 ondansetron 4 mg disintegrating 4 mg PO Q8H PRN nausea and 12/15/24 tablet vomiting 4 days #12 tabs ibuprofen 800 mg tablet 800 mg PO Q8H PRN pain #20 t abs 12/30/24 chlorhexidine gluconate 2 % 1 applic topical DAILY #11 8 mL 01/09/25 topical liquid clindamycin phosphate 1 % topical 1 applic topical SUMMER LY #75 mL 01/09/25 gel, once daily sulfamethoxazole 800 1 tab PO BID 7 days #14 tabs 01/09/25 mg-trimethoprim 160 mg tablet (Bactrim DS) clindamycin HCl 300 mg capsule 300 mg PO Q8H 7 days #2 1 caps 02/04/25 acetaminophen 500 mg capsule 500 mg PO Q6H PRN pain 7 days #28 03/15/25 caps doxycycline monohydrate 100 mg 100 mg PO BID 7 days #1 4 caps 03/15/25 capsule cefdinir 300 mg capsule 300 mg PO BID 10 days #20 ca ps 04/19/25 ondansetron 4 mg disintegrating 4 mg PO Q6H PRN nausea and 04/19/25 tablet vomiting #10 tabs phenazopyridine 100 mg tablet 100 mg PO Q8H PRN pain 6 doses #6 04/19/25 tabs metronidazole 500 mg tablet 500 mg PO BID 7 days #14 t abs 04/20/25 ondansetron HCl 4 mg tablet 4 mg PO Q8H PRN nausea and 05/14/25 vomiting 5 days #30 tabs sulfamethoxazole 800 1 tab PO BID 7 days #14 tabs 05/14/25 mg-trimethoprim 160 mg tablet Allergies Allergy/AdvReac Type Severity Reaction Status Date / Time ketorolac (From TORADOL) Allergy Mild Hives Verified 12/03/24 12:39 tramadol (TRAMADOL) Allergy Mild Hives Verified 12/03/24 12:39 diphenhydramine (From Allergy Unknown I-HIVES Verified 12/03/24 12:39 BENADRYL) [facility] <Calliebebeto Posadas (ED), UNDERWRITING CLERK - Last Filed: 05/18/25 22:04> [facility] Disclaimer: The information contained in this section may have been updated after the patient was seen, as this information can be updated by other users. Medical History Thyromegaly Chronic GERD Globus sensation Kidney stones Patient left without being seen Postoperative pain Otitis media Abdominal pain Foot callus Cellulitis Patient left without being seen Trichomonal vaginitis Postoperative abdominal pain Dysmenorrhea Menorrhagia Right lower quadrant pain Dysfunctional uterine bleeding Flank pain Palpitations SOB (shortness of breath) Concussion without loss of consciousness Microhematuria Acute right flank pain Degenerative joint disease (DJD) of lumbar spine Patient left without being seen Otitis externa Lumbar disc disease Tachycardia Back pain Dyspnea Chest pain Atypical chest pain Ovarian cyst Trichomonal cystitis Abdominal pain of unknown etiology Bilious vomiting Vomiting Closed fracture of tuft of distal phalanx of finger Pelvic pain UTI (urinary tract infection) Renal colic on left side Endometriosis Surgical History Hx of tonsillectomy History of cholecystectomy History of appendectomy H/O hysterectomy with oophorectomy [place] teeth extracted S/P appendectomy S/P hysterectomy Family History Mother Diabetes Hypertension Grandmother Cancer Father Cancer Hypertension Diabetes Social History Smoking Status: Current every day smoker tobacco type: cigarettes packs per day: 1 alcohol intake: never counseling provided: none substance use type: denies use current occupational status: employed and other Travel in the last 8 weeks?: None household members: spouse housing: house current occupational exposures/hazards: No caffeine: Yes Have you lived/traveled outside [place] in past 30 days?: No Contact w/someone who lives/traveled outside US past 30 days?: No Exposure to someone with infectious disease in past 14 days?: No Do you have a fever (greater than 100.4 F or 38 C)?: No Have you tested positive for COVID-19?: No Exposed to someone with COVID-19 in past 14 days?: No Do you have a sore throat?: No Do you have a cough?: No Do you have any weakness?: No Do you have any diarrhea?: No Are you experiencing any unusual bleeding?: No Do you have any muscle aches/pain?: No Do you have any abdominal pain?: No Are you experiencing loss of taste or smell?: No Other Medical History Have you received the Flu Vaccine for this season: No Have you received the Pneumonia Vaccine: No <Calliebebeto Posadas (ED), UNDERWRITING CLERK - Last Filed: 05/18/25 22:04> ROS Obtained: Yes Systems reviewed as appropriate & no additional complaints except as documented Constitutional Constitutional: Reports as per HPI Physical Exam <Callie Posadas (ED), UNDERWRITING CLERK - Last Filed: 05/18/25 22:04> General General appearance: alert and in no apparent distress Head Head exam: normocephalic Eye Eye exam: Present PERRL and EOMI ENT ENT exam: Present normal oropharynx and mucous membranes moist Neck Neck exam: Present full ROM and trachea midline Respiratory Respiratory exam: Present normal lung sounds bilaterally Cardiovascular Cardiovascular exam: Present normal rhythm, normal heart sounds, +S1 and +S2 Abdominal Exam Abdominal exam: Present soft and normal bowel sounds Extremities Exam Extremities exam: Present normal inspection, full ROM and normal capillary refill Back Exam Back exam: Present normal inspection and CVA tenderness (R) Neurological Exam Neurological exam: Present alert and oriented X3 Skin Skin exam: Present warm, dry and intact Medical Decision Making <Callie Posadas (ED), UNDERWRITING CLERK - Last Filed: 05/18/25 22:04> Medical Records Screening: Per USPSTF and CDC recommendations, given the prevalence of disease in our region, it is our hospital?s policy to screen for HIV and viral Hepatitis for all patients aged 18 and over and those with ongoing risk factors. Aram Inquiry Pt receiving controlled substance: No Aram was queried for this patient: No Vital Signs: 05/18/25 20:55 05/18/25 21:13 Temperature 97.8 F 98.5 F Temperature Source Temporal Artery Scan Oral Pulse Rate 89 Pulse Rate [Right Radial] 92 H Respiratory Rate 18 16 Blood Pressure 115/81 Blood Pressure [Left Arm] 125/76 Blood Pressure Mean [Left Arm] 92 Blood Pressure Source Automatic Cuff Blood Pressure Source [Left Arm] Automatic Cuff Blood Pressure Position Sitting Blood Pressure Position [Left Arm] Sitting 02 Sat by Pulse Oximetry 98 99 Oxygen Delivery Method Room Air Room Air Lab Data Lab Results 05/18/25 21:03: Urine Color Yellow, Urine Appearance Sl cloudy, Urine pH 5.5, Ur Specific [place] >= 1.030, Urine Protein Trace, Urine Glucose (UA) Negative, Urine Ketones Trace, Urine Blood 2+ A, Urine Nitrate Negative, Urine Bilirubin 1+ A, Urine Urobilinogen 0.2, Ur Leukocyte Esterase Trace, Urine RBC 5-10, Urine WBC None, Ur Squamous Epith Cells 20-50, Urine Bacteria 1+ 05/18/25 21:45: WBC 8.3, RBC 4.13 L, Hgb 13.1, Hct 41.6, MCV 100.7 H, MCH 31.7 H , MCHC 31.5 L, RDW 12.5, Plt Count 309, MPV 11.0 H, Neut % (Auto) 58.1, Lymph % (Auto) 33.6, [place] % (Auto) 6.7, Eos % (Auto) 1.1, Baso % (Auto) 0.4, Neut # (Auto) 4.9, Lymph # (Auto) 2.8, [place] # (Auto) 0.6, Eos # (Auto) 0.1, Baso # (Auto) 0.0, Sodium 141, Potassium 3.7, Chloride 112 H, Carbon Dioxide 22, Anion Gap 10.7, BUN 12, Creatinine 0.70, Estimated Creat Clear 187, Estimated GFR 99, Est GFR ( Amer) 120, Glucose 111 H, Calcium 9.5, Magnesium 1.9, Total Bilirubin 0.5, AST 40 H, ALT 19, Alkaline Phosphatase 42, Total Protein 7.1, Albumin 4.3, Globulin 2.8, Albumin/Globulin Ratio 1.5, Lipase 45 05/18/25 21:45 05/18/25 21:45 Orders (Tests/Meds): ED MEDICATIONS Generic Name Dose Route Start Last Admin Trade Name Freq PRN Reason Stop Dose Admin Sodium Chloride 10 ml 05/18/25 22:45 05/18/25 22:46 Sodium Chloride 0.9% 10ml Syr (Rad Only) IV 06/17/25 22:44 10 ml NEEDED PRN Administration Maintain IV Site Discontinued Medications Generic Name Dose Route Start Last Admin Trade Name [place] PRN Reason Stop Dose Admin Acetaminophen 1,000 mg 05/18/25 21:36 05/18/25 21:51 Acetaminophen 1,000mg/100ml Vial IV 05/18/25 21:37 1,000 mg ONCE ONE Administration Sodium Chloride 1,000 mls @ 999 mls/hr 05/18/25 21:25 05/18/25 23:00 Sod Chlor 0.9% 1000ml Bag IV 05/18/25 22:25 Infused .Q1H1M ONE Infusion Iopamidol 75 ml 05/18/25 22:45 05/18/25 22:46 Iopamidol-370 (76%);100ml Bottle IV 05/18/25 22:46 75 ml ONCE ONE Administration Morphine Sulfate 4 mg 05/18/25 22:09 05/18/25 22:21 Morphine 4mg/Ml Syringe IV 05/18/25 22:10 4 mg ONCE ONE Administration Ondansetron HCl 4 mg 05/18/25 22:09 05/18/25 22:21 Ondansetron 4mg/2ml Vial IV 05/18/25 22:10 4 mg ONCE ONE Administration ORDERS Category Date Time Status CT abdomen pelvis w con Stat Cat Scan 05/18/25 21:24 Completed CBC [Complete Blood Count Auto Diff] Stat Lab 05/18/25 21:45 Completed Comprehensive Metabolic Panel Stat Lab 05/18/25 21:45 Completed Lipase Stat Lab 05/18/25 21:45 Completed Magnesium Stat Lab 05/18/25 21:45 Completed Urinalysis and Microscopic Stat Lab 05/18/25 21:03 Completed Urinalysis and Microscopic Stat Lab 05/18/25 21:31 Ordered Medical Decision Narrative: patient is a 29-year-old female presenting to the emergency department for evaluation of flank pain bilaterally and blood in her urine. Patient is hemodynamically stable and nontoxic-appearing upon arrival, afebrile. Differential diagnosis includes kidney stone, pyelonephritis, UTI among others. Workup will be conducted with hematologic labs, specific imaging. Initial inventions include crystalloid bolus, analgesics. Initial workup reviewed by me [hematologic labs are remarkable for:]. [Imaging informally interpreted by me and remarkable for:] [Formal imaging read remarkable for:] Upon repeat evaluation [patient's pain is improved, appears better perfused, appears the same, appears worse, etc.]. Due to this [additional interventions, patient is appropriate for discharge, patient requires admission, etc.]. <Sophy Campos MD - Last Filed: 05/18/25 23:19> Vital Signs: 05/18/25 20:55 05/18/25 21:13 Temperature 97.8 F 98.5 F Temperature Source Temporal Artery Scan Oral Pulse Rate 89 Pulse Rate [Right Radial] 92 H Respiratory Rate 18 16 Blood Pressure 115/81 Blood Pressure [Left Arm] 125/76 Blood Pressure Mean [Left Arm] 92 Blood Pressure Source Automatic Cuff Blood Pressure Source [Left Arm] Automatic Cuff Blood Pressure Position Sitting Blood Pressure Position [Left Arm] Sitting 02 Sat by Pulse Oximetry 98 99 Oxygen Delivery Method Room Air Room Air Lab Data Lab Results 05/18/25 21:03: Urine Color Yellow, Urine Appearance Sl cloudy, Urine pH 5.5, Ur Specific [place] >= 1.030, Urine Protein Trace, Urine Glucose (UA) Negative, Urine Ketones Trace, Urine Blood 2+ A, Urine Nitrate Negative, Urine Bilirubin 1+ A, Urine Urobilinogen 0.2, Ur Leukocyte Esterase Trace, Urine RBC 5-10, Urine WBC None, Ur Squamous Epith Cells 20-50, Urine Bacteria 1+ 05/18/25 21:45: WBC 8.3, RBC 4.13 L, Hgb 13.1, Hct 41.6, MCV 100.7 H, MCH 31.7 H , MCHC 31.5 L, RDW 12.5, Plt Count 309, MPV 11.0 H, Neut % (Auto) 58.1, Lymph % (Auto) 33.6, [place] % (Auto) 6.7, Eos % (Auto) 1.1, Baso % (Auto) 0.4, Neut # (Auto) 4.9, Lymph # (Auto) 2.8, [place] # (Auto) 0.6, Eos # (Auto) 0.1, Baso # (Auto) 0.0, Sodium 141, Potassium 3.7, Chloride 112 H, Carbon Dioxide 22, Anion Gap 10.7, BUN 12, Creatinine 0.70, Estimated Creat Clear 187, Estimated GFR 99, Est GFR ( Amer) 120, Glucose 111 H, Calcium 9.5, Magnesium 1.9, Total Bilirubin 0.5, AST 40 H, ALT 19, Alkaline Phosphatase 42, Total Protein 7.1, Albumin 4.3, Globulin 2.8, Albumin/Globulin Ratio 1.5, Lipase 45 Orders (Tests/Meds): ED MEDICATIONS Generic Name Dose Route Start Last Admin Trade Name Freq PRN Reason Stop Dose Admin Sodium Chloride 10 ml 05/18/25 22:45 05/18/25 22:46 Sodium Chloride 0.9% 10ml Syr (Rad Only) IV 06/17/25 22:44 10 ml NEEDED PRN Administration Maintain IV Site Discontinued Medications Generic Name Dose Route Start Last Admin Trade Name Freq PRN Reason Stop Dose Admin Acetaminophen 1,000 mg 05/18/25 21:36 05/18/25 21:51 Acetaminophen 1,000mg/100ml Vial IV 05/18/25 21:37 1,000 mg ONCE ONE Administration Sodium Chloride 1,000 mls @ 999 mls/hr 05/18/25 21:25 05/18/25 23:00 Sod Chlor 0.9% 1000ml Bag IV 05/18/25 22:25 Infused .Q1H1M ONE Infusion Iopamidol 75 ml 05/18/25 22:45 05/18/25 22:46 Iopamidol-370 (76%);100ml Bottle IV 05/18/25 22:46 75 ml ONCE ONE Administration Morphine Sulfate 4 mg 05/18/25 22:09 05/18/25 22:21 Morphine 4mg/Ml Syringe IV 05/18/25 22:10 4 mg ONCE ONE Administration Ondansetron HCl 4 mg 05/18/25 22:09 05/18/25 22:21 Ondansetron 4mg/2ml Vial IV 05/18/25 22:10 4 mg ONCE ONE Administration ORDERS Category Date Time Status CT abdomen pelvis w con Stat Cat Scan 05/18/25 21:24 Completed CBC [Complete Blood Count Auto Diff] Stat Lab 05/18/25 21:45 Completed Comprehensive Metabolic Panel Stat Lab 05/18/25 21:45 Completed Lipase Stat Lab 05/18/25 21:45 Completed Magnesium Stat Lab 05/18/25 21:45 Completed Urinalysis and Microscopic Stat Lab 05/18/25 21:03 Completed Urinalysis and Microscopic Stat Lab 05/18/25 21:31 Ordered Medical Decision Narrative: patient is a 29-year-old female presenting to the emergency department for evaluation of flank pain bilaterally and blood in her urine. Patient is hemodynamically stable and nontoxic-appearing upon arrival, afebrile. Differential diagnosis includes kidney stone, pyelonephritis, UTI among others. Workup will be conducted with hematologic labs, specific imaging. Initial inventions include crystalloid bolus, analgesics. Initial workup reviewed by me [hematologic labs are remarkable for:]. [Imaging informally interpreted by me and remarkable for:] [Formal imaging read remarkable for:] Upon repeat evaluation [patient's pain is improved, appears better perfused, appears the same, appears worse, etc.]. Due to this [additional interventions, patient is appropriate for discharge, patient requires admission, etc.]. This is Dr. Campos [address] scan performed I personally interpreted shows no evidence of any intra-abdominal pathology there is a stone within the right kidney itself which is not in the collecting system not consistent with causing any of the patient's symptoms. Patient has had numerous CT scans this year I suspect there may be some secondary gain that is being sought at this point with multiple negative studies in the past. Care will be ultimately transition to Dr. Saunders at 11 PM <Anayeli Saunders MD - Last Filed: 05/18/25 23:52> Vital Signs: 05/18/25 20:55 05/18/25 21:13 Temperature 97.8 F 98.5 F Temperature Source Temporal Artery Scan Oral Pulse Rate 89 Pulse Rate [Right Radial] 92 H Respiratory Rate 18 16 Blood Pressure 115/81 Blood Pressure [Left Arm] 125/76 Blood Pressure Mean [Left Arm] 92 Blood Pressure Source Automatic Cuff Blood Pressure Source [Left Arm] Automatic Cuff Blood Pressure Position Sitting Blood Pressure Position [Left Arm] Sitting 02 Sat by Pulse Oximetry 98 99 Oxygen Delivery Method Room Air Room Air Lab Data Lab Results 05/18/25 21:03: Urine Color Yellow, Urine Appearance Sl cloudy, Urine pH 5.5, Ur Specific [place] >= 1.030, Urine Protein Trace, Urine Glucose (UA) Negative, Urine Ketones Trace, Urine Blood 2+ A, Urine Nitrate Negative, Urine Bilirubin 1+ A, Urine Urobilinogen 0.2, Ur Leukocyte Esterase Trace, Urine RBC 5-10, Urine WBC None, Ur Squamous Epith Cells 20-50, Urine Bacteria 1+ 05/18/25 21:45: WBC 8.3, RBC 4.13 L, Hgb 13.1, Hct 41.6, MCV 100.7 H, MCH 31.7 H , MCHC 31.5 L, RDW 12.5, Plt Count 309, MPV 11.0 H, Neut % (Auto) 58.1, Lymph % (Auto) 33.6, [place] % (Auto) 6.7, Eos % (Auto) 1.1, Baso % (Auto) 0.4, Neut # (Auto) 4.9, Lymph # (Auto) 2.8, [place] # (Auto) 0.6, Eos # (Auto) 0.1, Baso # (Auto) 0.0, Sodium 141, Potassium 3.7, Chloride 112 H, Carbon Dioxide 22, Anion Gap 10.7, BUN 12, Creatinine 0.70, Estimated Creat Clear 187, Estimated GFR 99, Est GFR ( Amer) 120, Glucose 111 H, Calcium 9.5, Magnesium 1.9, Total Bilirubin 0.5, AST 40 H, ALT 19, Alkaline Phosphatase 42, Total Protein 7.1, Albumin 4.3, Globulin 2.8, Albumin/Globulin Ratio 1.5, Lipase 45 Orders (Tests/Meds): ED MEDICATIONS Generic Name Dose Route Start Last Admin Trade Name Freq PRN Reason Stop Dose Admin Sodium Chloride 10 ml 05/18/25 22:45 05/18/25 22:46 Sodium Chloride 0.9% 10ml Syr (Rad Only) IV 06/17/25 22:44 10 ml NEEDED PRN Administration Maintain IV Site Discontinued Medications Generic Name Dose Route Start Last Admin Trade Name Freq PRN Reason Stop Dose Admin Acetaminophen 1,000 mg 05/18/25 21:36 05/18/25 21:51 Acetaminophen 1,000mg/100ml Vial IV 05/18/25 21:37 1,000 mg ONCE ONE Administration Sodium Chloride 1,000 mls @ 999 mls/hr 05/18/25 21:25 05/18/25 23:00 Sod Chlor 0.9% 1000ml Bag IV 05/18/25 22:25 Infused .Q1H1M ONE Infusion Iopamidol 75 ml 05/18/25 22:45 05/18/25 22:46 Iopamidol-370 (76%);100ml Bottle IV 05/18/25 22:46 75 ml ONCE ONE Administration Morphine Sulfate 4 mg 05/18/25 22:05/18/25 22:21 Morphine 4mg/Ml Syringe IV 05/18/25 22:10 4 mg ONCE ONE Administration Ondansetron HCl 4 mg 05/18/25 22:05/18/25 22:21 Ondansetron 4mg/2ml Vial IV 05/18/25 22:10 4 mg ONCE ONE Administration ORDERS Category Date Time Status CT abdomen pelvis w con Stat Cat Scan 05/18/25 21:24 Completed CBC [Complete Blood Count Auto Diff] Stat Lab 05/18/25 21:45 Completed Comprehensive Metabolic Panel Stat Lab 05/18/25 21:45 Completed Lipase Stat Lab 05/18/25 21:45 Completed Magnesium Stat Lab 05/18/25 21:45 Completed Urinalysis and Microscopic Stat Lab 05/18/25 21:03 Completed Urinalysis and Microscopic Stat Lab 05/18/25 21:31 Ordered Medical Decision Narrative: patient is a 29-year-old female presenting to the emergency department for evaluation of flank pain bilaterally and blood in her urine. Patient is hemodynamically stable and nontoxic-appearing upon arrival, afebrile. Differential diagnosis includes kidney stone, pyelonephritis, UTI among others. Workup will be conducted with hematologic labs, specific imaging. Initial inventions include crystalloid bolus, analgesics. Initial workup reviewed by me [hematologic labs are remarkable for:]. [Imaging informally interpreted by me and remarkable for:] [Formal imaging read remarkable for:] Upon repeat evaluation [patient's pain is improved, appears better perfused, appears the same, appears worse, etc.]. Due to this [additional interventions, patient is appropriate for discharge, patient requires admission, etc.]. This is Dr. Campos [address] scan performed I personally interpreted shows no evidence of any intra-abdominal pathology there is a stone within the right kidney itself which is not in the collecting system not consistent with causing any of the patient's symptoms. Patient has had numerous CT scans this year I suspect there may be some secondary gain that is being sought at this point with multiple negative studies in the past. Care will be ultimately transition to Dr. Saunders at 11 PM Saunders: Upon my assumption of care patient is hemodynamically stable, afebrile, well- appearing. I agree with the assessment and plan from Dr. Campos. Labs reviewed by me demonstrate no leukocytosis or anemia, normal platelets, CMP nonactionable, no kidney dysfunction, lipase normal, UA with small blood which is consistent with previous, contaminated with squamous cells but no evidence of infection. CT abdomen pelvis personally interpreted does not demonstrate acute intra- abdominal pathology on my personal interpretation though there are tiny bilateral kidney stones. These are intrarenal. No ureterolithiasis or hydronephrosis. See radiology read for final interpretation. Patient is appropriate for discharge at this time and is agreeable to this, asking to be discharged. No new prescriptions are being provided. Patient was given instructions on symptomatic management, follow up instructions including to address persistent hematuria with her PCP, and return precautions for the emergency department. Patient indicated understanding and was discharged in stable condition. Critical Care <Callie Posadas (ED), UNDERWRITING CLERK - Last Filed: 05/18/25 22:04> Critical Care Time Critical Care Time: No
[2025-05-18] MEDS: ACETAMINOPHEN 1,000MG/100ML VIAL 1000 MG IV (21:51)
[2025-05-18] MEDS: 0.9 % SODIUM CHLORIDE 1000ML 1,000 ML 999 ML IV (21:51)
[2025-05-18 22:20] LABS: Albumin Level 4.3 g/dl (3.5-5.0); Chloride 112 mmol/L (98-107); Potassium 3.7 mmoL/L (3.5-5.1); Sodium 141 mmol/L (136-145)
[2025-05-18] MEDS: ONDANSETRON 4MG/2ML VIAL 4 MG IV (22:21)
[2025-05-18] MEDS: MORPHINE 4MG/ML SYRINGE 4 MG IV (22:21)
[2025-05-18 22:23] LABS: Alanine Aminotransferase 19 U/L (12-78); Albumin/Globulin Ratio 1.5 (1.1-1.8); Alkaline Phosphatase 42 U/L (38-126); Anion Gap 10.7 mEq/L (5-15); Aspartate Amino Transferase 40 U/L (14-36); Bilirubin,Total 0.5 mg/dl (0.2-1.3); Blood Urea Nitrogen 12 mg/dl (7-17); Calcium 9.5 mg/dl (8.4-10.2); Carbon Dioxide 22 mmol/L (22.0-30.0); Creatinine Clearance Estimated 187 mL/min (50-200); Creatinine,Serum 0.70 mg/dl (0.52-1.04); Estimated Glomerular Filt Rate 99 ml/min (>60); GFR (African American) 120 ML/MIN (>60); Globulin 2.8 g/dL (1.3-3.2); Glucose 111 mg/dl (74-100); Lipase 45 U/L (23-300); Total Protein,Serum 7.1 g/dl (6.3-8.2)
[2025-05-18 22:24] LABS: Magnesium 1.9 mg/dl (1.6-2.3)
[2025-05-18 22:28] LABS: Hematocrit 41.6 % (37.0-47.0); Hemoglobin 13.1 g/dL (12.2-16.2); Immature Granulocytes % 0.1 %; Mean Corpuscular HGB Conc 31.5 g/dL (31.8-35.4); Mean Corpuscular Hemoglobin 31.7 pg (27.0-31.2); Mean Corpuscular Volume 100.7 fl (81-99); Nucleated Red Blood Cells % 0 %; Platelet Count 309 K/mm3 (142-424); Red Blood Count 4.13 M/mm3 (4.20-5.40); Red Cell Distribution Width-SD 46.8 fL; White Blood Count 8.3 K/mm3 (4.8-10.8)
[2025-05-18] MEDS: SODIUM CHLORIDE 0.9% 10ML SYR (RAD ONLY) 10 ML IV (22:46)
[2025-05-18] MEDS: IOPAMIDOL-370 (76%);100ML BOTTLE 75 ML IV (22:46)
[2025-05-18 23:53] VITALS: BP 126/72; PULSE 71; RESP 16; TEMP 36.9; O2SAT 99
[2025-05-18 23:54] VITALS: BP 126/87; PULSE 82; RESP 20; TEMP 36.9; O2SAT 97
== END 2025-05-18 23:59 | disposition home or self-care (01) ==
PROVIDERS: Nurse Practitioner; Emergency Provider Student in an Organized Health Care Education/Training Program
DX: R10.32 Left lower quadrant pain (principal); R31.9 Hematuria, unspecified; N20.0 Calculus of kidney; M54.59 Other low back pain; F17.210 Nicotine dependence, cigarettes, uncomplicated
CPT/HCPCS: 74177; 80053; 81001; 83690; 83735; 85025; 96361; 96374; 96375; 99283; 99284; J0131; J2270; J2405; J7030; Q9967

== ENCOUNTER 2025-06-20 10:14 | Emergency (ER) | payer OTHER, SELFPAY ==
[2025-06-20 10:20] VITALS: BP 125/71; PULSE 85; RESP 16; TEMP 36.9; O2SAT 98; BMI 39.3
--- NOTE | 2025-06-20 10:24 | ED_ITS ---
Discharge Plan Disposition Patient Disposition: Home, Self-Care Prescriptions Prescriptions: No Action bisoprolol fumarate 5 mg tablet 5 mg PO DAILY Qty: 90 3RF Rx Instructions: TAKE 1 TABLET BY MOUTH ONCE DAILY FOR HYPERTENSION acetaminophen [Tylenol Extra Strength] 500 mg tablet 1,000 mg PO Q6H PRN (Reason: pain) Qty: 90 1RF meloxicam 7.5 mg tablet 7.5 mg PO DAILY Qty: 30 2RF quetiapine 100 mg tablet See Rx Instructions PO DAILY 14 Days Qty: 38 1RF Rx Instructions: Half tablet twice daily for 3 days then 1 tablet twice daily for 3 days then 1 and half tablets twice daily for 3 days then 2 tablets twice daily orally daily; sertraline 25 mg tablet 25 mg PO DAILY Qty: 30 2RF hydroxyzine pamoate [Vistaril] 25 mg capsule 25 mg PO BID PRN (Reason: for sleep or anxiety) 30 Days Qty: 30 1RF amoxicillin 500 mg tablet See Rx Instructions PO BID 10 Days Qty: 20 0RF Rx Instructions: 500 mg PO BID acetaminophen 500 mg capsule 500 mg PO Q6H PRN (Reason: pain) 7 Days Qty: 28 0RF Referrals Follow up/Referrals: Nabil Olsen DO [Primary Care Provider, Family Practice] - See instructions Activity Restrictions/Add. Instructions Additional Instructions/Restrictions: Please follow-up with dentist or oral surgeon as scheduled Wednesday. Use oral rinses, Orajel, Tylenol and ibuprofen for pain and use the dental balls. Call dentist for worsening pain. Clinical Impressions Clinical Impression: Pain, dental Instructions Patient Instructions: DI for Dental Pain Print Language Print Language: [place] Islander Discharge ED Provider: Tommie Masters General Adult HPI <Callie Posadas (ED), REROLLING MACHINE OPERATOR - Last Filed: 06/20/25 10:39> General Chief complaint: Dental/Oral Stated complaint: Pain-Tooth, bottom R side Time Seen by Provider: 06/20/25 10:22 History of Present Illness HPI narrative: 30-year-old female presents to the ED today for complaint of right lower dental pain. She says she is having all of her teeth extracted on Wednesday. She has had pain that is exquisite. She has no drainage. She has nausea but no vomiting or diarrhea. She has no fevers or chills. Related Data Previous Rx's ?Medication ?Instructions ?Recorded acetaminophen 500 mg capsule 500 mg PO Q6H PRN pain 7 days #28 03/15/25 caps hydroxyzine pamoate 25 mg capsule 25 mg PO BID PRN for sleep or 06/06/25 (Vistaril) anxiety 30 days #30 caps quetiapine 100 mg tablet See Rx Instructions PO DAILY 14 06/06/25 days #38 tabs sertraline 25 mg tablet 25 mg PO DAILY #30 tabs 05/15 01/05 acetaminophen 500 mg tablet 1,000 mg (2 x 500 mg) PO Q 6H PRN 06/07/25 (Tylenol Extra Strength) pain #90 tabs bisoprolol fumarate 5 mg tablet 5 mg PO DAILY #90 tabs 06/07/25 meloxicam 7.5 mg tablet 7.5 mg PO DAILY #30 tabs amoxicillin 500 mg tablet See Rx Instructions PO BID 1 0 days 06/09/25 #20 tabs Allergies Allergy/AdvReac Type Severity Reaction Status Date / Time ketorolac (From TORADOL) Allergy Mild Hives Verified 06/09/25 09:06 tramadol (TRAMADOL) Allergy Mild Hives Verified 06/09/25 09:06 diphenhydramine (From Allergy Unknown I-HIVES Verified 06/09/25 09:06 BENADRYL) [facility] <Callie Posadas (ED), REROLLING MACHINE OPERATOR - Last Filed: 06/20/25 10:39> [facility] Disclaimer: The information contained in this section may have been updated after the patient was seen, as this information can be updated by other users. Medical History Dental infection UTI (urinary tract infection) Pain, dental Chronic dental pain Thyromegaly Chronic GERD Globus sensation Kidney stones Patient left without being seen Postoperative pain Otitis media Abdominal pain Foot callus Cellulitis Patient left without being seen Trichomonal vaginitis Postoperative abdominal pain Dysmenorrhea Menorrhagia Right lower quadrant pain Dysfunctional uterine bleeding Flank pain Palpitations SOB (shortness of breath) Concussion without loss of consciousness Microhematuria Acute right flank pain Degenerative joint disease (DJD) of lumbar spine Patient left without being seen Otitis externa Lumbar disc disease Tachycardia Back pain Dyspnea Chest pain Atypical chest pain Ovarian cyst Trichomonal cystitis Abdominal pain of unknown etiology Bilious vomiting Vomiting Closed fracture of tuft of distal phalanx of finger Pelvic pain UTI (urinary tract infection) Renal colic on left side Endometriosis Surgical History Hx of tonsillectomy History of cholecystectomy History of appendectomy H/O hysterectomy with oophorectomy [place] teeth extracted S/P appendectomy S/P hysterectomy Family History Mother Diabetes Hypertension Grandmother Cancer ovarian and breast Father Cancer Hypertension Diabetes Social History Smoking Status: Current every day smoker tobacco type: cigarettes packs per day: 1 alcohol intake: never counseling provided: none substance use type: denies use current occupational status: employed and other Travel in the last 8 weeks?: None household members: spouse housing: house current occupational exposures/hazards: No caffeine: Yes Have you lived/traveled outside US in past 30 days?: No Contact w/someone who lives/traveled outside US past 30 days?: No Exposure to someone with infectious disease in past 14 days?: No Do you have a fever (greater than 100.4 F or 38 C)?: No Have you tested positive for COVID-19?: No Exposed to someone with COVID-19 in past 14 days?: No Do you have a sore throat?: No Do you have a cough?: No Do you have any weakness?: No Do you have any diarrhea?: No Are you experiencing any unusual bleeding?: No Do you have any muscle aches/pain?: No Do you have any abdominal pain?: No Are you experiencing loss of taste or smell?: No Other Medical History Have you received the Flu Vaccine for this season: No Have you received the Pneumonia Vaccine: No <Callie Posadas (ED), REROLLING MACHINE OPERATOR - Last Filed: 06/20/25 10:39> ROS Obtained: Yes Systems reviewed as appropriate & no additional complaints except as documented Constitutional Constitutional: Reports as per HPI Physical Exam <Callie Posadas (ED), REROLLING MACHINE OPERATOR - Last Filed: 06/20/25 10:39> General General appearance: alert and in no apparent distress Head Head exam: normocephalic Eye Eye exam: Present PERRL and EOMI ENT ENT exam: Present mucous membranes moist and other (Erythema to right lower gumline) Neck Neck exam: Present full ROM and trachea midline Respiratory Respiratory exam: Present normal lung sounds bilaterally Cardiovascular Cardiovascular exam: Present regular rate, normal rhythm, +S1 and +S2 Extremities Exam Extremities exam: Present full ROM and normal capillary refill Neurological Exam Neurological exam: Present alert and oriented X3 Skin Skin exam: Present warm, dry and intact Medical Decision Making <Callie Posadas (ED), REROLLING MACHINE OPERATOR - Last Filed: 06/20/25 10:39> Medical Records Screening: Per USPSTF and CDC recommendations, given the prevalence of disease in our region, it is our hospital?s policy to screen for HIV and viral Hepatitis for all patients aged 18 and over and those with ongoing risk factors. Aram Inquiry Pt receiving controlled substance: No Aram was queried for this patient: No Vital Signs: 06/20/25 10:20 Temperature 98.5 F Temperature Source Oral Pulse Rate [Left Radial] 85 Respiratory Rate 16 Blood Pressure [Right Arm] 125/71 Blood Pressure Mean [Right Arm] 89 02 Sat by Pulse Oximetry 98 Orders (Tests/Meds): ED MEDICATIONS Generic Name Dose Route Start Last Admin Trade Name Freq PRN Reason Stop Dose Admin Benzocaine/Butamben/Tetracaine HCl 1 gm 06/20/25 10:38 Tetracaine/Benzocaine/Butamben 56 Gm [place] TP 07/20/25 10:37 NEEDED PRN dental ball Discontinued Medications Generic Name Dose Route Start Last Admin Trade Name Freq PRN Reason Stop Dose Admin Acetaminophen 1,000 mg 06/20/25 10:23 Acetaminophen 500mg Tab PO 06/20/25 10:24 ONCE ONE Lidocaine HCl 15 ml 06/20/25 10:22 Lidocaine 2% Viscous Daisha 15ml Udc PO 06/20/25 10:23 ONCE ONE Medical Decision Narrative: patient is a 30-year-old female presenting to the emergency department for evaluation of dental pain. Patient is hemodynamically stable and nontoxic- appearing upon arrival, afebrile. Differential diagnosis includes dental pain. Patient will be given dental balls and Tylenol. Patient has history of narcotic abuse. Discussed with Dr. Masters. Patient will be discharged with dental balls. Patient has an appointment with oral surgeon on Wednesday for teeth extraction. <Tommie Masters MD - Last Filed: 06/20/25 10:42> Vital Signs: 06/20/25 10:20 Temperature 98.5 F Temperature Source Oral Pulse Rate [Left Radial] 85 Respiratory Rate 16 Blood Pressure [Right Arm] 125/71 Blood Pressure Mean [Right Arm] 89 02 Sat by Pulse Oximetry 98 Orders (Tests/Meds): ED MEDICATIONS Generic Name Dose Route Start Last Admin Trade Name Freq PRN Reason Stop Dose Admin Benzocaine/Butamben/Tetracaine HCl 1 gm 06/20/25 10:38 Tetracaine/Benzocaine/Butamben 56 Gm [place] TP 07/20/25 10:37 NEEDED PRN dental ball Discontinued Medications Generic Name Dose Route Start Last Admin Trade Name Freq PRN Reason Stop Dose Admin Acetaminophen 1,000 mg 06/20/25 10:23 Acetaminophen 500mg Tab PO 06/20/25 10:24 ONCE ONE Lidocaine HCl 15 ml 06/20/25 10:22 Lidocaine 2% Viscous Daisha 15ml Udc PO 06/20/25 10:23 ONCE ONE Medical Decision Narrative: patient is a 30-year-old female presenting to the emergency department for evaluation of dental pain. Patient is hemodynamically stable and nontoxic- appearing upon arrival, afebrile. Differential diagnosis includes dental pain. Patient will be given dental balls and Tylenol. Patient has history of narcotic abuse. Discussed with Dr. Masters. Patient will be discharged with dental balls. Patient has an appointment with oral surgeon on Wednesday for teeth extraction. Tommie Masters: I was consulted by the JOVANNY, and we discussed the complexity of the problems being addressed. I approved the treatment and management plan for this patient's care in the emergency department, thus performing a substantive portion of the medical decision making. Based on discussion with JOVANNY no concern for deep space infection and ranging the neck so labs and imaging were considered but will be deferred. Patient appropriate for outpatient management at this time. Critical Care <Callie Posadas (ED), REROLLING MACHINE OPERATOR - Last Filed: 06/20/25 10:39> Critical Care Time Critical Care Time: No
--- NOTE | 2025-06-20 10:30 | PC.NURSE ---
Lucy Arzola rounded on pt to let them know that the analyzer was down and it was taking awhile for labs to come back
[2025-06-20] MEDS: ACETAMINOPHEN 500MG TAB 1000 MG PO (10:42)
[2025-06-20] MEDS: LIDOCAINE 2% VISCOUS SOL 15ML UDC 15 ML PO (10:42)
[2025-06-20] MEDS: TETRACAINE/BENZOCAINE/BUTAMBEN 56 GM SPRAY TP (10:42)
[2025-06-20 10:52] VITALS: BP 125/71; PULSE 85; RESP 16; TEMP 36.9; O2SAT 98
== END 2025-06-20 10:54 | disposition home or self-care (01) ==
PROVIDERS: Emergency Provider Emergency Medicine; PCP Internal Medicine
DX: K08.89 Other specified disorders of teeth and supporting structures (principal); F17.210 Nicotine dependence, cigarettes, uncomplicated
CPT/HCPCS: 99283

== ENCOUNTER 2025-06-23 19:16 | Emergency (ER) | payer OTHER, SELFPAY ==
[2025-06-23 19:18] VITALS: BP 163/116; PULSE 101; RESP 18; TEMP 36.9; O2SAT 97; BMI 38.9
--- OUTSIDE RECORDS SUMMARY | 2025-06-23 19:29 | XMS_ITS | Clinical Summary ---
Author Organization [employer] ([place], [place], [place], [place]) Address [address] [place] [address] Care Team Providers Care Is/It Project Manager Name Role Phone Unavailable Primary Care Provider [...] Date Tashi rded Speak language other than Ecuadorean at home Not on file 02/02/2024 Want [...]
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
--- OUTSIDE RECORDS SUMMARY | 2025-06-23 19:29 | XMS_ITS | Clinical Summary ---
[facility] Address [address] [place] [address] Care Team Providers Care Fingerprint Clerk Name Role Phone Jose Bailey MD Primary Care Provider [phone] Allergies Active Allergy Reactions Criticality Noted Date [...] ANNUAL PHYSICAL 08/08/2018 HEPATITIS C SCREENING 08/08/2018 INFLUENZA VACCINE 04/13/2025 Pneumococcal Vaccine 0-49 Aged Out No longer eligible based on patient's age to complete this topic Insurance Care Teams Fingerprint Clerk Relationship Specialty Start Date End Date Jose Bailey MD [address] [place] [address] PCP - General Family Medicine 10/18/20
--- OUTSIDE RECORDS SUMMARY | 2025-06-23 19:29 | XMS_ITS | Referral Summary ---
Author Organization [employer] ([place], [place], [place], [place]) Address [address] [place] [address] Care Team Providers Care Bar Waiter/Waitress Name Role Phone Unavailable Primary Care Provider [...] Date Tashi rded Speak language other than [place] at home Not on file 02/02/2024 Want [...]
--- OUTSIDE RECORDS SUMMARY | 2025-06-23 19:29 | XMS_ITS | Clinical Summary ---
Author Organization Healthcare Address [address] [place] [address] Care Team Providers Care Newspaper Reporter Name Role Phone Pcp, No Primary Care Provider UnavailAman Lynch [address] [employer] Unavailable [phone] Allergies Active Allergy Reactions Criticality Noted Date [...] EDT Emergency [facility] S Emergency Department [address] [place] [address] Mary Prater MD Pain, dental (Primary Dx) Discharge Disposition: Home or Self Care 04/07/2025 Travel from Last 3 Months Immunizations Immunization Administration Dates Next Due HPV, Quadrivalent 04/16/2010 Social History Tobacco Use Types Packs/Day Years Used Date Smoking Tobacco: Never Assessed Comments Unknown Sex and Gender Information Value Date Recorded Sex Assigned at Not on file Legal Sex Female 6:10 PM EDT Gender Identity Not on file [...] [facility]-HIV Screening 1995 [facility]-Hepatitis C Screening 1995 [facility]-Infant/Child/Adol SDOH Screenings 1995 [facility]-Obesity Intervention 2001 [facility]-Varicella Vaccines (1 of 2 - 13+ 2-dose series) 2008 HPV Vaccines (2 - 2-dose series) 10/17/2010 04/16/20 10 [facility]- SDOH Screenings 2013 [facility]-Adult SDOH Screenings 2013 [facility]-DTaP,Tdap,and Td Vaccine s (1 - Tdap) 2014 [facility]-Hepatitis B Vaccines (1 of 3 - 19+ 3-dose series) 2014 [facility]-Pap Smear 2016 [facility]-SFVTS-12 Vaccine (1 - 20 24-25 season) 2025 [facility]-Influenza Vaccine (#1) 2025 [facility]-Cervical Cancer Screening 2025 [facility]-HPV/Cotest 2025 [facility]-Zoster Vaccines (1 of 2) 2045 [...] with the final edited report. Drafted by Damino Sepulveda DO on 04/07/2025 6:13 PM Final report signed by Gini Goetz MD on 04/07/2025 6:54 PM Jennifer MCCLOUD IMG XR PROCEDURES Final Result from Last 3 Months Insurance [employer] Care Teams Newspaper Reporter Relationship Specialty Start Date End Date Pcp, Alyson [address] [place] [address] PCP - General Family Medicine 04/07/25 Aman Tapia APRN [address] [place], [place] [id number] 04/07/25
[2025-06-23] MEDS: OXYCODONE 5MG IMMEDIATE RELEASE TABLET 5 MG PO (20:03)
[2025-06-23] MEDS: TETRACAINE/BENZOCAINE/BUTAMBEN 56 GM SPRAY TP (20:04)
[2025-06-23 20:06] VITALS: BP 160/98; PULSE 98; RESP 20; TEMP 36.8; O2SAT 98
--- NOTE | 2025-06-23 21:16 | ED_ITS ---
<Statement entered by Tirso Gutierrez DO - 06/23/25 23:24> I was consulted by the JOVANNY, and we discussed the complexity of problems being addressed. I approved the treatment and management plan for this patient's care in the emergency department, thus performing a substantive portion of the medical decision making. Tirso Gutierrez DO Discharge Plan Disposition Patient Disposition: Home, Self-Care Prescriptions Prescriptions: No Action bisoprolol fumarate 5 mg tablet 5 mg PO DAILY Qty: 90 3RF Rx Instructions: TAKE 1 TABLET BY MOUTH ONCE DAILY FOR HYPERTENSION acetaminophen [Tylenol Extra Strength] 500 mg tablet 1,000 mg PO Q6H PRN (Reason: pain) Qty: 90 1RF meloxicam 7.5 mg tablet 7.5 mg PO DAILY Qty: 30 2RF quetiapine 100 mg tablet See Rx Instructions PO DAILY 14 Days Qty: 38 1RF Rx Instructions: Half tablet twice daily for 3 days then 1 tablet twice daily for 3 days then 1 and half tablets twice daily for 3 days then 2 tablets twice daily orally daily; sertraline 25 mg tablet 25 mg PO DAILY Qty: 30 2RF hydroxyzine pamoate [Vistaril] 25 mg capsule 25 mg PO BID PRN (Reason: for sleep or anxiety) 30 Days Qty: 30 1RF amoxicillin 500 mg tablet See Rx Instructions PO BID 10 Days Qty: 20 0RF Rx Instructions: 500 mg PO BID acetaminophen 500 mg capsule 500 mg PO Q6H PRN (Reason: pain) 7 Days Qty: 28 0RF Referrals Follow up/Referrals: Nabil Olsen DO [Primary Care Provider, Family Practice] - See instructions Activity Restrictions/Add. Instructions Additional Instructions/Restrictions: Today you were evaluated in the emergency department for dental pain. You were given a dental block and 1 dose of oxycodone. Please follow-up with dentistry as scheduled. Please return to the ED for worsening of condition. Clinical Impressions Clinical Impression: Chronic dental pain Instructions Patient Instructions: DI for Dental Pain Print Language Print Language: [place] Discharge ED Provider: Tirso Gutierrez General Adult HPI General Chief complaint: Dental/Oral Stated complaint: toothache Time Seen by Provider: 06/23/25 19:27 Mode of Arrival: Ambulatory Source of Information: Patient Description of Symptoms (Recalled from ER Triage Doc. by RN): patient at the ED for /10 right sided tooth pain that radiates up her jaw and down her neck. rachana stated she has an extraction surgery scheduled for wednesday with her dentist but she cannot tolerate the pain anymore. History of Present Illness HPI narrative: patient is a 30-year-old female PMHx history of chronic dental pain with multiple ED visits who presents to the ED for chronic dental pain. Patient again states that she is scheduled to have her teeth extracted next week. She reports pain on the right lower dental area. She states she finished a round of antibiotics today, was recently on Augmentin. I discussed with patient that she has stated that she was having her dental issues taken care of for over 1 month now, patient states that her appointment keeps getting canceled. Related Data Previous Rx's ?Medication ?Instructions ?Recorded acetaminophen 500 mg capsule 500 mg PO Q6H PRN pain 7 days #28 03/15/25 caps hydroxyzine pamoate 25 mg capsule 25 mg PO BID PRN for sleep or 06/06/25 (Vistaril) anxiety 30 days #30 caps quetiapine 100 mg tablet See Rx Instructions PO DAILY 14 06/06/25 days #38 tabs sertraline 25 mg tablet 25 mg PO DAILY #30 tabs 05/15 01/05 acetaminophen 500 mg tablet 1,000 mg (2 x 500 mg) PO Q 6H PRN 06/07/25 (Tylenol Extra Strength) pain #90 tabs bisoprolol fumarate 5 mg tablet 5 mg PO DAILY #90 tabs 06/07/25 meloxicam 7.5 mg tablet 7.5 mg PO DAILY #30 tabs amoxicillin 500 mg tablet See Rx Instructions PO BID 1 0 days 06/09/25 #20 tabs Allergies Allergy/AdvReac Type Severity Reaction Status Date / Time ketorolac (From TORADOL) Allergy Mild Hives Verified 06/09/25 09:06 tramadol (TRAMADOL) Allergy Mild Hives Verified 06/09/25 09:06 diphenhydramine (From Allergy Unknown I-HIVES Verified 06/09/25 09:06 BENADRYL) [facility] Disclaimer: The information contained in this section may have been updated after the patient was seen, as this information can be updated by other users. Medical History Dental infection UTI (urinary tract infection) Pain, dental Chronic dental pain Thyromegaly Chronic GERD Globus sensation Kidney stones Patient left without being seen Postoperative pain Otitis media Abdominal pain Foot callus Cellulitis Patient left without being seen Trichomonal vaginitis Postoperative abdominal pain Dysmenorrhea Menorrhagia Right lower quadrant pain Dysfunctional uterine bleeding Flank pain Palpitations SOB (shortness of breath) Concussion without loss of consciousness Microhematuria Acute right flank pain Degenerative joint disease (DJD) of lumbar spine Patient left without being seen Otitis externa Lumbar disc disease Tachycardia Back pain Dyspnea Chest pain Atypical chest pain Ovarian cyst Trichomonal cystitis Abdominal pain of unknown etiology Bilious vomiting Vomiting Closed fracture of tuft of distal phalanx of finger Pelvic pain UTI (urinary tract infection) Renal colic on left side Endometriosis Surgical History Hx of tonsillectomy History of cholecystectomy History of appendectomy H/O hysterectomy with oophorectomy [place] teeth extracted S/P appendectomy S/P hysterectomy Family History Mother Diabetes Hypertension Grandmother Cancer ovarian and breast Father Cancer Hypertension Diabetes Social History Smoking Status: Current every day smoker tobacco type: cigarettes packs per day: 1 alcohol intake: never counseling provided: none substance use type: denies use current occupational status: employed and other Travel in the last 8 weeks?: None household members: spouse housing: house current occupational exposures/hazards: No caffeine: Yes Have you lived/traveled outside [place] in past 30 days?: No Contact w/someone who lives/traveled outside [place] past 30 days?: No Exposure to someone with infectious disease in past 14 days?: No Do you have a fever (greater than 100.4 F or 38 C)?: No Have you tested positive for COVID-19?: No Exposed to someone with COVID-19 in past 14 days?: No Do you have a sore throat?: No Do you have a cough?: No Do you have any weakness?: No Do you have any diarrhea?: No Are you experiencing any unusual bleeding?: No Do you have any muscle aches/pain?: No Do you have any abdominal pain?: No Are you experiencing loss of taste or smell?: No Other Medical History Have you received the Flu Vaccine for this season: No Have you received the Pneumonia Vaccine: No ROS Obtained: Yes Systems reviewed as appropriate & no additional complaints except as documented Physical Exam General General appearance: alert Eye Eye exam: Present PERRL ENT ENT exam: Present other (Poor dental health, dental tenderness, no abscess noted) Respiratory Respiratory exam: Present normal lung sounds bilaterally Cardiovascular Cardiovascular exam: Present regular rate Back Exam Back exam: Present full ROM Neurological Exam Neurological exam: Present alert Skin Skin exam: Present dry Medical Decision Making Medical Records Screening: Per USPSTF and CDC recommendations, given the prevalence of disease in our region, it is our hospital?s policy to screen for HIV and viral Hepatitis for all patients aged 18 and over and those with ongoing risk factors. Aram Inquiry Pt receiving controlled substance: No Vital Signs: 06/23/25 19:18 06/23/25 20:06 Temperature 98.5 F 98.2 F Temperature Source Oral Oral Pulse Rate 98 H Pulse Rate [Right Radial] 101 H Respiratory Rate 18 20 Blood Pressure 160/98 H Blood Pressure [Right Arm] 163/116 H Blood Pressure Mean [Right Arm] 131 Blood Pressure Source [Right Arm] Automatic Cuff Blood Pressure Position Sitting Blood Pressure Position [Right Arm] Sitting 02 Sat by Pulse Oximetry 97 Oxygen Delivery Method Room Air Room Air Orders (Tests/Meds): ED MEDICATIONS Discontinued Medications Generic Name Dose Route Start Last Admin Trade Name Freq PRN Reason Stop Dose Admin Benzocaine/Butamben/Tetracaine HCl 1 gm 06/23/25 19:51 06/23/25 20:04 Tetracaine/Benzocaine/Butamben 56 Gm [place] TP 07/23/25 19:50 1 gm NEEDED PRN Administration Toothache Bupivacaine HCl 1 mg 06/23/25 19:52 06/23/25 20:04 Bupivacaine 0.5% 10ml Vial IJ 06/23/25 19:53 1 mg ONCE ONE Administration Oxycodone HCl 5 mg 06/23/25 19:58 06/23/25 20:03 Oxycodone 5mg Immediate Release Tablet PO 06/23/25 19:59 5 mg ONCE ONE Administration Medical Decision Narrative: In summary, patient is a 30-year-old female PMHx history of chronic dental pain with multiple ED visits who presents to the ED for chronic dental pain. Patient again states that she is scheduled to have her teeth extracted next week. She reports pain on the right lower dental area. She states she finished a round of antibiotics today, was recently on Augmentin. I discussed with patient that she has stated that she was having her dental issues taken care of for over 1 month now, patient states that her appointment keeps getting canceled. She is re questing a prescription for oral narcotics. I advised patient that we will not be sending prescription for oral narcotics for chronic dental pain. Upon initial evaluation she is alert, oriented and stable. She is obese, poor dental health, dental decay and dental tenderness noted. I have offered patient a dental block and she accepted. I provided a dental block with bupivacaine. Patient tolerated the procedure well and had immediate relief of all dental pain. During her visit she was giving oxycodone 5 mg for pain. I discussed with patient that she will need to follow-up with dentistry. We discussed return precautions to the ED. Patient verbalized understanding. Critical Care Critical Care Time Critical Care Time: No
== END 2025-06-23 20:13 | disposition home or self-care (01) ==
PROVIDERS: Emergency Provider Student in an Organized Health Care Education/Training Program; PCP Internal Medicine
DX: R68.84 Jaw pain (principal); K08.89 Other specified disorders of teeth and supporting structures; F17.210 Nicotine dependence, cigarettes, uncomplicated
CPT/HCPCS: 99283; J0665

== ENCOUNTER 2025-06-30 18:08 | Emergency (ER) | payer OTHER, SELFPAY ==
--- OUTSIDE RECORDS SUMMARY | 2025-05-11 00:54 | XMS_ITS | Continuity of Care Document ---
Author Organization [facility] Phone Care Team Providers Care Lead Systems Architect Name Role Phone NO, DEFINED P Unavailable Unavailable RENE HUMMEL Primary Attending RENE HUMMEL Admitting NO, DEFINED P Primary Care Unavailable ALLERGIES AND ADVERSE REACTIONS ALLERGIES AND ADVERSE REACTIONS Code System Allergy Substance Adverse Reaction Date Reaction (Severity) Comment Status Reported By Updated By [id number] RXNorm Benadryl Adverse reaction to substance Not Specified active [id number] on May 09, 2025 4:16:07 AM [facility] Tramadol HCl (Free Text Allergy) Adverse reaction to substance Not Specified active [id number] on May 09, 2025 4:16:07 AM [place] Toradol Adverse reaction to substance Not Specified active [id number] on May 09, 2025 4:16:07 AM [facility] DENTAL BALLS (Free Text Allergy) Adverse reaction to substance Not Specified active [id number] on May 09, 2025 4:16:07 AM [facility] FAMILY HISTORY RELATION: Father Status: LIVING SNOMED-CT Diagnosis Age At Onset [id number] Hypertensive disorder [id number] Deep venous thrombosis RELATION: Mother Status: LIVING SNOMED-CT Diagnosis Age At Onset [id number] Hypertensive disorder [id number] Heart disease MEDICATIONS HOME MEDICATIONS Status RXNORM [facility] Medication Dose Route Frequency Dates Comments Reported By Updated By Active [id number] aspirin 81 mg capsule 1.0 CAP ORAL DAILY Last Dose: [id number] on May 09, 2025 4:16:07 AM [facility] Active 604765 94816 Aspirin 81 Tablet Chewable 81 MG 0.0 ORAL DAILY Last Dose: [id number] on May 09, 2025 4:16:07 AM [facility] Active 590551 247055 10345 bisoprolol fumarate 5 mg tablet 1.0 TAB ORAL DAILY Last Dose: [id number] on May 09, 2025 4:16:07 AM [facility] DISCHARGE MEDICATIONS Status RXNORM NDC Medication Dose Route Frequency Dates Dis pense Data Comments Physician Updated By No Discharge Medication Info rmation Available INPATIENT MEDICATIONS Status RXNORM NDC Medication Dose Route Frequency Rat e Quantity Dates Indication Dispense Data Comments Physician Updated By No Inpatient Medication Info rmation Available SOCIAL HISTORY SOCIAL HISTORY - Smoking Status SNOMED-CT Social History Element Description Effective Dates Offered Cessation Comment Updated By [id number] Current Tobacco smoking status Never Smoked [id number] on May 09, 2025 4:04:17 AM [facility] [id number] Historical Tobacco smoking status Current Every Day Smoker [id number] on April 07, 2025 7:41:52 PM [facility] [id number] Historical Tobacco smoking status Smoker, Current Status Unknown [id number] on January 18, 2025 5:15:03 PM [facility] [id number] Historical Tobacco smoking status Unknown If Ever Smoked [id number] on December 17, 2024 12:47:30 AM [facility] SOCIAL HISTORY - Gender Sex: Female SOCIAL HISTORY - Status : status i nformation is not available Intention in Next Year: intention information is not available SOCIAL HISTORY - Assessments Code System Description Status Date Value of Assessment Updated By Comment Assessment Information is no t available SOCIAL HISTORY - [place] Affiliation [place] information is not av ailable SOCIAL HISTORY - Legal Sex Legal Sex information is not available SOCIAL HISTORY - Sexual Behavior Sexual Orientation Gender Identity SNOMED-CT Description SNO MED -CT Description Activity Level No of Partners Partner Type UpdatedBy Information is not available SOCIAL HISTORY - Occupation Occupation information is no t available VITAL SIGNS PATIENT VITAL SIGNS This section displays the mo st recent value for each vital sign as of May 11, 2025 4:54:18 AM [facility] Loinc Code Vital Sign Activity Date Result Updated By 8302-2 Body height May 09, 2025 4:15:23 AM [facility] 160.02 cm (63.0 in) [id number] on May 09, 2025 4:15:23 AM [facility] 23080-0 Body mass index (BMI ) [Ratio] May 09, 2025 4:15:23 AM [facility] 39.053 kg/m2 3140-1 Body Surface Area Derived From Formula May 09, 2025 4:15:23 AM UTC 2.0155 m2 8310-5 Body temperature May 09, 2025 4:13:42 AM UTC 98.8 [degF] 17180-6 Body weight Measured May 09, 2025 4:15:23 AM UTC 100.0 kg (220.0 lb) [id number] on May 09, 2025 4:15:23 AM UTC 8462-4 Diastolic blood pressure May 09, 2025 4:13:42 AM UTC 86.0 mm[Hg] 8867-4 Heart rate May 09, 2025 4:13:42 AM UTC 94 /min 74077-5 Oxygen saturation in Arterial blood by Pulse oximetry May 09, 2025 4:13:42 AM UTC 99.0 % 9279-1 Respiratory rate May 09, 2025 4:13:42 AM UTC 18 /min 8480-6 Systolic blood pressure May 09, 2025 4:13:42 AM UTC 127.0 mm[Hg] PEDIATRIC GROWTH CHART - VITAL SIGNS This [...] available. ENCOUNTERS ENCOUNTER INFORMATION Reason for Visit TOOTHACHE, JAW PAIN Admission May 09, 2025 3:47:00 AM UTC G [address] [id number] Discharge May 09, 2025 4:51:00 AM UTC D ISCHARGED TO HOME OR SELF CARE ENCOUNTER DIAGNOSES Notes information is not saundra ilable. Code System Diagnosis Onset Date Diagnosis information is not available. ABSTRACT DIAGNOSES Code System Diagnosis Updated By Abatement Date K08.89 ICD10 OTHER SPECIFIED DISORDERS OF TEETH AND SUPPORTING STRUCTURES [id number] on May 11, 2025 4:53:43 AM UTC R68.84 ICD10 JAW PAIN [id number] on 2024 4:53:43 AM UTC R68.84 ICD10 JAW PAIN [id number] on 2024 4:53:43 AM [place] Z88.5 ICD10 ALLERGY STATUS T O NARCOTIC AGENT [id number] on May 11, 2025 4:53:43 AM [place] Z88.6 ICD10 ALLERGY STATUS T O ANALGESIC AGENT [id number] on May 11, 2025 4:53:43 AM [place] Z88.8 ICD10 ALLERGY STATUS T O OTHER DRUGS, MEDICAMENTS AND BIOLOGICAL SUBSTANCES [id number] on May 11, 2025 4:53:43 AM [facility] Z79.82 ICD10 COSTUME TECHNICIAN (CURRE NT) USE OF ASPIRIN [id number] on May 11, 2025 4:53:43 AM [facility] CARE TEAM Care Lead Systems Architect Role DEFINED NO Referring RENE HUMMEL Primary Attending RENE HUMMEL Admitting DEFINED NO Primary Care CARE TEAM CARE peanut grader Role on Team Location Telecom Status Start Date End Edmund e Updated By NO DEFINED PRIMARY C Referring normal May 09, 2025 4:14:02 AM [facility] May 09, 2025 4:51:00 AM [facility] [id number] on May 09, 2025 4:14:02 AM [facility] SHAHEED Desir Attending normal May 09, 2025 4:11:38 AM [facility] May 09, 2025 4:51:00 AM [facility] [id number] on May 09, 2025 4:14:02 AM [facility] SHAHEED Desir Admitting normal May 09, 2025 4:11:38 AM [facility] May 09, 2025 4:51:00 AM [facility] [id number] on May 09, 2025 4:14:02 AM [facility] NO DEFINED PRIMARY C PCP normal May 09, 2025 3:47:32 AM [facility] May 09, 2025 4:51:00 AM [facility] [id number] on May 09, 2025 4:14:02 AM [facility]
--- OUTSIDE RECORDS SUMMARY | 2025-05-18 23:45 | XMS_ITS | Continuity of Care Document ---
Author Organization [facility] Phone Care Team Providers Care Quality Control Coordinator Name Role Phone MIRTHA SERRANO Admitting Unavailable MIRTHA SERRANO Primary Attending Unavailable NO, DEFINED P Unavailable Unavailable NO, DEFINED P Primary Care Unavailable ALLERGIES AND ADVERSE REACTIONS ALLERGIES AND ADVERSE REACTIONS Code System Allergy Substance Adverse Reaction Date Reaction (Severity) Comment Status Reported By Updated By 3498 RXNorm Benadryl Adverse reaction to substance Not Specified active [id number] on May 17, 2025 9:11:52 PM UTC Tramadol HCl (Free Text Allergy) Adverse reaction to substance Not Specified active [id number] on May 17, 2025 9:11:52 PM UTC Toradol Adverse reaction to substance Not Specified active [id number] on May 17, 2025 9:11:52 PM UTC DENTAL BALLS (Free Text Allergy) Adverse reaction to substance Not Specified active [id number] on May 17, 2025 9:11:52 PM UTC 6387 RXNorm Lidocaine Adverse reaction to substance Not Specified active [id number] on May 17, 2025 9:33:16 PM UTC Cetacaine (Free Text Allergy) Adverse reaction to substance Not Specified active [id number] on May 17, 2025 9:33:17 PM UTC FAMILY HISTORY RELATION: Father Status: LIVING SNOMED-CT Diagnosis Age At Onset [id number] Hypertensive disorder [id number] Deep venous thrombosis RELATION: Mother Status: LIVING SNOMED-CT Diagnosis Age At Onset [id number] Hypertensive disorder [id number] Heart disease MEDICATIONS HOME MEDICATIONS Status RXNORM [...] Indication Dispense Data Comments Physician Updated By Discont inued [id number] 7946 1090 340 lidocaine (XYLOCAINE) VISCOUS 2 % SOLN 20.0 ML ONE TIME ONLY (SCHEDULED DOSE) Start: 2024 9:22:0 0 PM UTC End: 2024 9:22:0 0 PM UTC SERRANO [facility] ED on 2024 9:21:00 PM UT Discont inued 5766 4016 688 NORCO 5-325 MG TABS 1.0 TAB ORAL ONE TIME ONLY (SCHEDULED DOSE) Start: 2024 9:22:0 0 PM UTC End: 2024 9:22:0 0 PM [facility]24 9:21:00 PM UT Discont inued [id number] 0228 3020 103 CETACAINE SPRAY 2-2-14% AERO 1.0 SPR ONE TIME ONLY (SCHEDULED DOSE) Start: 2024 9:24:0 0 PM UTC End: 2024 9:24:0 0 PM UTC SERRANO [facility] ED on 2024 9:22:00 PM UT SOCIAL HISTORY SOCIAL HISTORY - Smoking Status SNOMED-CT Social History Element Description Effective Dates Offered Cessation Comment Updated By [id number] Current Tobacco smoking status Smoker, Current Status Unknown [email or web address] on May 17, 2025 9:32:57 PM [facility] [id number] Historical Tobacco smoking status Never Smoked [id number] on May 09, 2025 4:04:17 AM [facility] [id number] Historical Tobacco smoking status Current Every Day Smoker [id number] on April 07, 2025 7:41:52 PM [facility] [id number] Historical Tobacco smoking status Unknown If Ever Smoked [email or web address] on December 17, 2024 12:47:30 AM [facility] SOCIAL HISTORY - Gender Sex: Female SOCIAL HISTORY - Status : status i nformation is not available Intention in Next Year: intention information is not available SOCIAL HISTORY - Assessments Code System Description Status Date Value of Assessment Updated By Comment Assessment Information is no t available SOCIAL HISTORY - Kotlik Affiliation Kotlik information is not av ailable SOCIAL HISTORY [...] for each vital sign as of May 19, 2025 3:45:31 AM UTC Loinc Code Vital Sign Activity Date Result Updated By 8310-5 Body temperature May 17 9:15:00 PM UTC 97.8 [degF] 8462-4 Diastolic blood pressure Septemb er 2024 9:15:00 PM UTC 94.0 mm[Hg] 8867-4 Heart rate May 17 9:15:00 PM UTC 110 /min 40153-8 Oxygen saturation in Arterial blood by Pulse oximetry May 17, 2025 9:15:00 PM UTC 98.0 % 9279-1 Respiratory rate May 17 9:39:00 PM UTC 20 /min 8480-6 Systolic blood pressure Septembe r 2024 9:15:00 PM UTC 162.0 mm[Hg] PEDIATRIC GROWTH CHART - VITAL SIGNS [...] INFORMATION Reason for Visit TOOTH PAIN Admission May 17, 2025 8:56:00 PM [place] [id number] [facility] [id number] Discharge May 17, 2025 9:41:00 PM [place] DISCHARGED TO HOME OR SELF CARE ENCOUNTER DIAGNOSES Notes information is not saundra ilable. Code System Diagnosis Onset Date Diagnosis information is not available. ABSTRACT DIAGNOSES Code System Diagnosis Updated By Abatement Date K08.89 ICD10 OTHER SPECIFIED DISORDERS OF TEETH AND SUPPORTING STRUCTURES [id number] on May 19, 2025 3:45:01 AM UT K02.9 ICD10 DENTAL CARIES, UNSPECIFIED B [id number] on May 19, 2025 3:45:01 AM UTC Z72.0 ICD10 TOBACCO USE [id number] on May 3:45:01 AM UTC Z88.5 ICD10 ALLERGY STATUS T O NARCOTIC AGENT [id number] on May 19, 2025 3:45:01 AM UTC Z88.6 ICD10 ALLERGY STATUS T O ANALGESIC AGENT [id number] on May 19, 2025 3:45:01 AM UTC Z88.4 ICD10 ALLERGY STATUS T O ANESTHETIC AGENT [id number] on May 19, 2025 3:45:01 AM UTC Z88.8 ICD10 ALLERGY STATUS T O OTHER DRUGS, MEDICAMENTS AND BIOLOGICAL SUBSTANCES [id number] on May 19, 2025 3:45:01 AM UTC CARE TEAM Care Quality Control Coordinator Role ZORANIELLE SERRANO Admitting MIRTHA SERRANO Primary Attending DEFINED NO Referring DEFINED NO Primary Care CARE TEAM CARE computer programmer Role on Team Location Telecom Status Start Date End Edmund e Updated By NO DEFINED PRIMARY C Referring normal May 17, 2025 9:27:07 PM [place] May 17, 2025 9:41:00 PM UTC [id number] on May 17, 2025 9:27:07 PM [place] ZACH SHANNON Attending normal May 17, 2025 9:27:07 PM [place] May 17, 2025 9:41:00 PM UTC [id number] on May 17, 2025 9:27:07 PM [place] ZACH SHANNON Admitting normal May 17, 2025 9:27:06 PM UTC May 17, 2025 9:41:00 PM UTC [id number] on May 17, 2025 9:27:07 PM UT NO DEFINED PRIMARY C PCP normal May 17, 2025 8:56:59 PM UTC May 17, 2025 9:41:00 PM UTC [id number] on May 17, 2025 9:27:07 PM UTC
[2025-06-30 18:15] VITALS: BP 136/89; PULSE 90; RESP 18; TEMP 36.8; O2SAT 100; BMI 43.4
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
--- OUTSIDE RECORDS SUMMARY | 2025-06-30 18:16 | XMS_ITS | Clinical Summary ---
Author Organization Healthcare Address [address] [place] [address] Care Team Providers Care [employer] Name Role Phone Pcp, No Primary Care Provider UnavailAman Lynch FLOOR LAYER Unavailable [phone] Allergies Active Allergy Reactions Criticality Noted Date [...] EDT Emergency PAV S Emergency Department [address] [place] [address] Mary Prater MD Pain, dental (Primary Dx) [...] 19+ 3-dose series) 2014 UKY-Pap Smear 2016 [id number] Vaccine (1 - 20 24-25 season) 2025 [...] Goetz MD on 04/07/2025 6:54 PM Jennifer MCCLODU IMG XR PROCEDURES Final Result from Last 3 Months Insurance [employer] Care Teams [employer] Relationship Specialty Start Date End Date Pcp, Alyson [address] [place] [address] PCP - General Family Medicine 04/07/25 Aman Tapia APRN [address] [place], [place] [id number] 04/07/25
[2025-06-30 18:30] VITALS: BP 114/77; PULSE 92; O2SAT 99
[2025-06-30] MEDS: OXYCODONE 5MG IMMEDIATE RELEASE TABLET 5 MG PO (18:42)
[2025-06-30] MEDS: LIDOCAINE 2% VISCOUS SOL 15ML UDC 15 ML PO (18:43)
[2025-06-30 18:48] VITALS: BP 114/77; PULSE 91; RESP 18; TEMP 36.7; O2SAT 100
--- NOTE | 2025-06-30 20:44 | ED_ITS ---
<Statement entered by Qamar Cadena MD - 07/01/25 02:13> I was consulted by the JOVANNY, and we discussed the complexity of the problems being addressed. I approve the treatment and management plan for this patient's care in the emergency department, thus performing a substantive portion of the medical decision making. Qamar Cadena MD Discharge Plan Disposition Patient Disposition: Home, Self-Care Condition: Good Prescriptions Prescriptions: No Action bisoprolol fumarate 5 mg tablet 5 mg PO DAILY Qty: 90 3RF Rx Instructions: TAKE 1 TABLET BY MOUTH ONCE DAILY FOR HYPERTENSION acetaminophen [Tylenol Extra Strength] 500 mg tablet 1,000 mg PO Q6H PRN (Reason: pain) Qty: 90 1RF meloxicam 7.5 mg tablet 7.5 mg PO DAILY Qty: 30 2RF quetiapine 100 mg tablet See Rx Instructions PO DAILY 14 Days Qty: 38 1RF Rx Instructions: Half tablet twice daily for 3 days then 1 tablet twice daily for 3 days then 1 and half tablets twice daily for 3 days then 2 tablets twice daily orally daily; sertraline 25 mg tablet 25 mg PO DAILY Qty: 30 2RF hydroxyzine pamoate [Vistaril] 25 mg capsule 25 mg PO BID PRN (Reason: for sleep or anxiety) 30 Days Qty: 30 1RF amoxicillin 500 mg tablet See Rx Instructions PO BID 10 Days Qty: 20 0RF Rx Instructions: 500 mg PO BID acetaminophen 500 mg capsule 500 mg PO Q6H PRN (Reason: pain) 7 Days Qty: 28 0RF Referrals Follow up/Referrals: Nabil Olsen DO [Primary Care Provider, Family Practice] - See instructions Activity Restrictions/Add. Instructions Additional Instructions/Restrictions: You were seen for dental pain after extraction. Continue your antibiotics. Call your dentist. Continue ibuprofen/ tylenol. Clinical Impressions Clinical Impression: Pain, dental Instructions Patient Instructions: DI for Dental Pain Print Language Print Language: German Discharge ED Provider: Qamar Cadena General Adult HPI General Chief complaint: Dental/Oral Stated complaint: pain in mouth Time Seen by Provider: 06/30/25 18:14 Mode of Arrival: Ambulatory Source of Information: Patient Description of Symptoms (Recalled from ER Triage Doc. by RN): pt had teeth removed on wednesday. pt has taken all of her pain medications prescribed and would like more History of Present Illness HPI narrative: Patient presents complaining of dental pain. She reports that she had 22 teeth pulled on Wednesday. She ran out of her pain medication yesterday. She has been taking amoxicillin ibuprofen and Tylenol. Denies any fevers or vomiting. She is able to tolerate p.o. complaint: dental pain Onset (ago): day(s) Location: mouth Radiation: non-radiation Consistency: intermittent Relieving factors: none Exacerbating factors: none Associated symptoms: negative fever/chills Treatments prior to arrival: none Related Data Previous Rx's ?Medication ?Instructions ?Recorded acetaminophen 500 mg capsule 500 mg PO Q6H PRN pain 7 days #28 03/15/25 caps hydroxyzine pamoate 25 mg capsule 25 mg PO BID PRN for sleep or 06/06/25 (Vistaril) anxiety 30 days #30 caps quetiapine 100 mg tablet See Rx Instructions PO DAILY 14 06/06/25 days #38 tabs sertraline 25 mg tablet 25 mg PO DAILY #30 tabs 05/15 01/05 acetaminophen 500 mg tablet 1,000 mg (2 x 500 mg) PO Q 6H PRN 06/07/25 (Tylenol Extra Strength) pain #90 tabs bisoprolol fumarate 5 mg tablet 5 mg PO DAILY #90 tabs 06/07/25 meloxicam 7.5 mg tablet 7.5 mg PO DAILY #30 tabs amoxicillin 500 mg tablet See Rx Instructions PO BID 1 0 days 06/09/25 #20 tabs Allergies Allergy/AdvReac Type Severity Reaction Status Date / Time ketorolac (From TORADOL) Allergy Mild Hives Verified 06/09/25 09:06 tramadol (TRAMADOL) Allergy Mild Hives Verified 06/09/25 09:06 diphenhydramine (From Allergy Unknown I-HIVES Verified 06/09/25 09:06 BENADRYL) [facility] Disclaimer: The information contained in this section may have been updated after the patient was seen, as this information can be updated by other users. Medical History Dental infection UTI (urinary tract infection) Pain, dental Chronic dental pain Thyromegaly Chronic GERD Globus sensation Kidney stones Patient left without being seen Postoperative pain Otitis media Abdominal pain Foot callus Cellulitis Patient left without being seen Trichomonal vaginitis Postoperative abdominal pain Dysmenorrhea Menorrhagia Right lower quadrant pain Dysfunctional uterine bleeding Flank pain Palpitations SOB (shortness of breath) Concussion without loss of consciousness Microhematuria Acute right flank pain Degenerative joint disease (DJD) of lumbar spine Patient left without being seen Otitis externa Lumbar disc disease Tachycardia Back pain Dyspnea Chest pain Atypical chest pain Ovarian cyst Trichomonal cystitis Abdominal pain of unknown etiology Bilious vomiting Vomiting Closed fracture of tuft of distal phalanx of finger Pelvic pain UTI (urinary tract infection) Renal colic on left side Endometriosis Surgical History Hx of tonsillectomy History of cholecystectomy History of appendectomy H/O hysterectomy with oophorectomy [place] teeth extracted S/P appendectomy S/P hysterectomy Family History Mother Diabetes Hypertension Grandmother Cancer ovarian and breast Father Cancer Hypertension Diabetes Social History Smoking Status: Current every day smoker tobacco type: cigarettes packs per day: 1 alcohol intake: never counseling provided: none substance use type: denies use current occupational status: employed and other Travel in the last 8 weeks?: None household members: spouse housing: house current occupational exposures/hazards: No caffeine: Yes Have you lived/traveled outside [place] in past 30 days?: No Contact w/someone who lives/traveled outside US past 30 days?: No Exposure to someone with infectious disease in past 14 days?: No Do you have a fever (greater than 100.4 F or 38 C)?: No Have you tested positive for COVID-19?: No Exposed to someone with COVID-19 in past 14 days?: No Do you have a sore throat?: No Do you have a cough?: No Do you have any weakness?: No Do you have any diarrhea?: No Are you experiencing any unusual bleeding?: No Do you have any muscle aches/pain?: No Do you have any abdominal pain?: No Are you experiencing loss of taste or smell?: No Other Medical History Have you received the Flu Vaccine for this season: No Have you received the Pneumonia Vaccine: No ROS Obtained: Yes Systems reviewed as appropriate & no additional complaints except as documented Physical Exam General General appearance: alert and in no apparent distress Head Head exam: atraumatic and normocephalic Eye Eye exam: Present normal appearance and EOMI ENT ENT exam: Present other (edentulous, sutures in place along upper and lower gums, no active bleeding or evidence of abscess ) Chest Chest inspection: Present symmetric chest wall rise Respiratory Respiratory exam: Present normal lung sounds bilaterally; Absent wheezes or stridor Cardiovascular Cardiovascular exam: Present regular rate and normal rhythm; Absent systolic murmur Extremities Exam Extremities exam: Present full ROM Neurological Exam Neurological exam: Present alert and oriented X3 Psychiatric Psychiatric exam: Present normal affect and normal mood Skin Skin exam: Present warm, dry and intact Medical Decision Making Medical Records Screening: Per USPSTF and CDC recommendations, given the prevalence of disease in our region, it is our hospital?s policy to screen for HIV and viral Hepatitis for all patients aged 18 and over and those with ongoing risk factors. Aram Inquiry Pt receiving controlled substance: No Vital Signs: 06/30/25 18:15 06/30/25 18:30 06/30/25 18:48 Temperature 98.3 F 98.0 F Temperature Source Oral Oral Pulse Rate 92 H 91 H Pulse Rate [Right] 90 Respiratory Rate 18 18 Blood Pressure 114/77 114/77 Blood Pressure [Right Arm] 136/89 Blood Pressure Mean [Right Arm] 104 Blood Pressure Source Automatic Cuff Blood Pressure Position Sitting 02 Sat by Pulse Oximetry 100 99 Oxygen Delivery Method Room Air Orders (Tests/Meds): ED MEDICATIONS Discontinued Medications Generic Name Dose Route Start Last Admin Trade Name Freq PRN Reason Stop Dose Admin Lidocaine HCl 15 ml 06/30/25 18:36 06/30/25 18:43 Lidocaine 2% Viscous Daisha 15ml Udc PO 06/30/25 18:37 15 ml ONCE ONE Administration Oxycodone HCl 5 mg 06/30/25 18:35 06/30/25 18:42 Oxycodone 5mg Immediate Release Tablet PO 06/30/25 18:36 5 mg ONCE ONE Administration Medical Decision Narrative: Patient presents with dental pain after having 22 teeth pulled Wednesday. No e vidence of abscess, patient is tolerating p.o. Advised to continue her antibiotics. Given 1 oxycodone here in the emergency department. Advised to follow-up with her dentist. Critical Care Critical Care Time Critical Care Time: No
== END 2025-06-30 18:49 | disposition home or self-care (01) ==
PROVIDERS: Emergency Provider Student in an Organized Health Care Education/Training Program; PCP Internal Medicine
DX: K08.89 Other specified disorders of teeth and supporting structures (principal); F17.210 Nicotine dependence, cigarettes, uncomplicated
CPT/HCPCS: 99283

== ENCOUNTER 2025-07-06 22:00 | Emergency (ER) | payer OTHER, SELFPAY ==
--- OUTSIDE RECORDS SUMMARY | 2025-07-03 05:40 | XMS_ITS | Continuity of Care Document ---
Author Organization [facility] Phone Care Team Providers Care Nurse Practitioner Physician Assistant Name Role Phone RENE HUMMEL Admitting NO, DEFINED P Primary Care Unavailable NO, DEFINED P Unavailable Unavailable RENE HUMMEL Primary Attending ALLERGIES AND ADVERSE REACTIONS ALLERGIES AND ADVERSE REACTIONS Code System Allergy Substance Adverse Reaction Date Reaction (Severity) Comment Status Reported By Updated By 3498 RXNorm Benadryl Adverse reaction to substance Not Specified active [id number] on July 02, 2025 12:29:40 AM UTC Tramadol HCl (Free Text Allergy) Adverse reaction to substance Not Specified active [id number] on July 02, 2025 12:29:40 AM UTC Toradol Adverse reaction to substance Not Specified active [id number] on July 02, 2025 12:29:40 AM UTC DENTAL BALLS (Free Text Allergy) Adverse reaction to substance Not Specified active [id number] on July 02, 2025 12:29:40 AM UTC 6387 RXNorm Lidocaine Adverse reaction to substance Not Specified active [id number] on July 02, 2025 12:29:40 AM UTC Cetacaine (Free Text Allergy) Adverse reaction to substance Not Specified active [id number] on July 02, 2025 12:29:40 AM UTC FAMILY HISTORY RELATION: Father Status: LIVING SNOMED-CT Diagnosis Age At Onset [id number] Hypertensive disorder [id number] Deep venous thrombosis RELATION: Mother Status: LIVING SNOMED-CT Diagnosis Age At Onset [id number] Hypertensive disorder [id number] Heart disease MEDICATIONS HOME MEDICATIONS Status RXNORM [...] Indication Dispense Data Comments Physician [facility] [id number] PERCOCET 5-325 MG TABS 1.0 TAB ORAL ONE TIME ONLY (SCHEDULED DOSE) Start: Octobe r 2024 12:50: 00 AM UT End: Octobe 2024 12:50: 00 AM [place] SHAHEED Desir INTERF ED on July 02, 2025 12:48:00 AM UT SOCIAL HISTORY SOCIAL HISTORY - Smoking Status SNOMED-CT Social History Element Description Effective Dates Offered Cessation Comment Updated By [id number] Current Tobacco smoking status Current Every Day Smoker [id number] on July 02, 2025 12:30:42 AM [facility] [id number] Historical Tobacco smoking status Smoker, Current Status Unknown [email or web address] on May 17, 2025 9:32:57 PM [facility] [id number] Historical Tobacco smoking status Never Smoked [email or web address] on May 09, 2025 4:04:17 AM [facility] [id number] Historical Tobacco smoking status Unknown If Ever Smoked [email or web address] on December 17, 2024 12:47:30 AM [facility] SOCIAL HISTORY - Gender Sex: Female SOCIAL HISTORY - Status : status i nformation is not available Intention in Next Year: intention information is not available SOCIAL HISTORY - Assessments Code System Description Status Date Value of Assessment Updated By Comment Assessment Information is no t available SOCIAL HISTORY - Tangirnaq Affiliation Tangirnaq information is not av ailable SOCIAL HISTORY [...] value for each vital sign as of July 03, 2025 9:40:32 AM [facility] Loinc Code Vital Sign Activity Date Result Updated By 8302-2 Body height July 02, 2025 12:28:30 AM UT 160.02 cm (63.0 in) [id number] on July 02, 2025 12:28:30 AM [facility] 20418-0 Body mass index (BMI ) [Ratio] July 02, 2025 12:28:30 AM UTC 39.053 kg/m2 3140-1 Body Surface Area Derived From Formula July 02, 2025 12:28:30 AM UTC 2.0155 m2 8310-5 Body temperature July 02 12:24:00 AM UTC 98.5 [degF] 37752-9 Body weight Measured July 02, 2025 12:28:30 AM UTC 100.0 kg (220.0 lb) [id number] on July 02, 2025 12:28:30 AM UTC 8462-4 Diastolic blood pressure July 02, 2025 12:24:00 AM UTC 90.0 mm[Hg] 8867-4 Heart rate July 02, 2025 1:00:00 AM UTC 102 /min 32163-0 Oxygen saturation in Arterial blood by Pulse oximetry July 02, 2025 1:00:00 AM UTC 98.0 % 9279-1 Respiratory rate July 02 12:24:00 AM UTC 18 /min 8480-6 Systolic blood pressure July 02, 2025 12:24:00 AM UTC 140.0 mm[Hg] PEDIATRIC GROWTH CHART - VITAL SIGNS [...] available. ENCOUNTERS ENCOUNTER INFORMATION Reason for Visit DRY SOCKET Admission July 02, 2025 12:07:[address] [address] Discharge July 02, 2025 1:25:00 AM [facility] DISCHARGED TO HOME OR SELF CARE ENCOUNTER DIAGNOSES Notes information is not saundra ilable. Code System Diagnosis Onset Date Diagnosis information is not available. ABSTRACT DIAGNOSES Code System Diagnosis Updated By Abatement Date K08.89 ICD10 OTHER SPECIFIED DISORDERS OF TEETH AND SUPPORTING STRUCTURES [id number] on July 03, 2025 9:39:58 AM UT K08.89 ICD10 OTHER SPECIFIED DISORDERS OF TEETH AND SUPPORTING STRUCTURES [id number] on July 03, 2025 9:39:58 AM [facility] K13.79 ICD10 OTHER LESIONS OF ORAL MUCOSA [id number] on July 03, 2025 9:39:58 AM UT Z88.8 ICD10 ALLERGY STATUS T O OTHER DRUGS, MEDICAMENTS AND BIOLOGICAL SUBSTANCES [id number] on July 03, 2025 9:39:58 AM UT Z72.0 ICD10 TOBACCO USE [id number] on Juno 2024 9:39:58 AM UT Z88.5 ICD10 ALLERGY STATUS T O NARCOTIC AGENT [id number] on July 03, 2025 9:39:58 AM UT Z88.6 ICD10 ALLERGY STATUS T O ANALGESIC AGENT [id number] on July 03, 2025 9:39:58 AM [facility] CARE TEAM Care Nurse Practitioner Physician Assistant Role RENE HUMMEL Admitting DEFINED NO Primary Care DEFINED NO Referring RENE HUMMEL Primary Attending CARE TEAM CARE pyridine operator Role on Team Location Telecom Status Start Date End Edmund e Updated By NO DEFINED PRIMARY C Referring normal July 02, 2025 12:18:26 AM [facility] July 02, 2025 1:25:00 AM [facility] [id number] on July 02, 2025 12:18:26 AM [facility] SHAHEED Desir Attending normal July 02, 2025 12:18:26 AM [facility] July 02, 2025 1:25:00 AM [facility] [id number] on July 02, 2025 12:18:26 AM [facility] SHAHEED Desir Admitting normal July 02, 2025 12:18:26 AM [facility] July 02, 2025 1:25:00 AM [facility] [id number] on July 02, 2025 12:18:26 AM [facility] NO DEFINED PRIMARY C PCP normal July 02, 2025 12:07:22 AM [facility] July 02, 2025 1:25:00 AM [place] [id number] on July 02, 2025 12:18:26 AM [facility]
[2025-07-06 22:04] VITALS: BP 131/75; PULSE 93; RESP 18; TEMP 36.8; O2SAT 96; BMI 40.7
--- OUTSIDE RECORDS SUMMARY | 2025-07-06 22:21 | XMS_ITS | Clinical Summary ---
Author Organization Healthcare Address [address] [place] [address] Care Team Providers Care Pillowcase Cleaner Name Role Phone Pcp, No Primary Care Provider UnavailAman Lynch IMPERSONATOR CHARACTER Unavailable [phone] Allergies Active Allergy Reactions Criticality Noted Date [...] EDT Emergency PAV S Emergency Department [address] [place] [address] Mary Prater MD Pain, dental (Primary Dx) [...] 19+ 3-dose series) 2014 UKY-Pap Smear 2016 [id number] Vaccine (1 - 20 24-25 season) 2025 [...] Insurance [employer] Care Teams Pillowcase Cleaner Relationship Specialty Start Date End Date Pcp, Alyson [address] [place] [address] PCP - General Family Medicine 04/07/25 Aman Tapia APRN [address] [place], [place] [id number] 04/07/25
--- OUTSIDE RECORDS SUMMARY | 2025-07-06 22:21 | XMS_ITS | Clinical Summary ---
[facility] Address [address] [place] [address] Care Team Providers Care Brass Cleaner Name Role Phone Jose Bailey MD Primary Care Provider [phone] Allergies Active Allergy Reactions Criticality Noted Date [...] to complete this topic Insurance Care Teams Brass Cleaner Relationship Specialty Start Date End Date Jose Bailey MD [address] [place] [address] PCP - General Family Medicine 10/18/20
--- OUTSIDE RECORDS SUMMARY | 2025-07-06 22:21 | XMS_ITS | Clinical Summary ---
Author Organization [facility] ([place], [place], [place], [place]) Address [address] [place] [address] Care Team Providers Care Take Out Waiter/Waitress Name Role Phone Unavailable Primary Care [...] Date Tashi rded Speak language other than [place] at home Not on file 02/02/2024 Want [...]
--- OUTSIDE RECORDS SUMMARY | 2025-07-06 22:21 | XMS_ITS | Referral Summary ---
Author Organization [employer] ([place], [place], [place], [place]) Address [address] [place] [address] Care Team Providers Care Personnel Clerks Supervisor Name Role Phone Unavailable Primary Care Provider [...] Date Tashi rded Speak language other than Egyptian at home Not on file 02/02/2024 Want [...]
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
[2025-07-06 22:27] VITALS: BP 105/70; PULSE 72; O2SAT 97
[2025-07-06] MEDS: ACETAMINOPHEN 500MG TAB 1000 MG PO (22:54)
[2025-07-06] MEDS: METHOCARBAMOL 500MG TABLET 500 MG PO (22:54)
[2025-07-06 23:24] VITALS: BP 109/71; PULSE 71; RESP 16; TEMP 36.6; O2SAT 97
== END 2025-07-06 23:25 | disposition left against medical advice (07) ==
LOC: ER 22:19
PROVIDERS: Emergency Provider Student in an Organized Health Care Education/Training Program; PCP Internal Medicine
DX: Z53.29 Procedure and treatment not carried out because of patient's decision for other reasons (principal)
CPT/HCPCS: 99282

== ENCOUNTER 2025-07-30 23:38 | Emergency (ER) | payer OTHER, SELFPAY ==
--- OUTSIDE RECORDS SUMMARY | 2025-07-30 01:59 | XMS_ITS | Continuity of Care Document ---
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 Name Role Phone RENE HUMMEL Admitting NO, DEFINED P Primary Care Unavailable RENE HUMMEL Primary Attending NO, DEFINED P Unavailable Unavailable ALLERGIES AND ADVERSE REACTIONS ALLERGIES AND ADVERSE REACTIONS Code System Allergy Substance Adverse Reaction Date Reaction (Severity) Comment Status Reported By Updated By [id number] RXNorm Benadryl Adverse reaction to substance Not Specified active [id number] on July 28, 2025 4:39:44 PM UTC Tramadol HCl (Free Text Allergy) Adverse reaction to substance Not Specified active [id number] on July 28, 2025 4:39:44 PM UTC Toradol Adverse reaction to substance Not Specified active [id number] on July 28, 2025 4:39:44 PM UTC DENTAL BALLS (Free Text Allergy) Adverse reaction to substance Not Specified active [id number] on July 28, 2025 4:39:44 PM UTC 6387 RXNorm Lidocaine Adverse reaction to substance Not Specified active [id number] on July 28, 2025 4:39:44 PM UTC Cetacaine (Free Text Allergy) Adverse reaction to substance Not Specified active [id number] on July 28, 2025 4:39:44 PM UTC FAMILY HISTORY RELATION: Father Status: LIVING SNOMED-CT Diagnosis Age At Onset [id number] Hypertensive disorder [id number] Deep venous thrombosis RELATION: Mother Status: LIVING SNOMED-CT Diagnosis Age At Onset [id number] Hypertensive disorder [id number] Heart disease MEDICATIONS HOME MEDICATIONS Status RXNORM NDC Medication Dose Route Frequency Dates Comments Reported By Updated By Active [id number] 00710 1 aspirin 81 mg capsule 1.0 CAP ORAL DAILY Last Dose: [id number] on July 28, 2025 4:39:44 PM [facility] Active [id number] 14128 01522 1 bisoprolol fumarate 5 mg tablet 1.0 TAB ORAL DAILY Last Dose: [id number] on July 28, 2025 4:39:44 PM [place] Active 82897 32755 1 Aspirin 81 Tablet Chewable 81 MG 0.0 ORAL DAILY Last Dose: [id number] on July 28, 2025 4:39:44 PM [place] DISCHARGE MEDICATIONS Status RXNORM ND Medication Dose Route Frequency Dates Dis pense Data Comments Physician Updated By No Discharge Medication Info rmation Available INPATIENT MEDICATIONS Status RXNORM ND Medication Dose Route Frequency Rat e Quantity Dates Indication Dispense Data Comments Physician Updated By Candice inued [id number] 617 ondansetron (ZOFRAN) 4 MG ODT TBDP 4.0 MG ORAL ONE TIME ONLY (SCHEDULED DOSE) Start: 2024 4:57:0 0 PM [place] End: 2024 4:57:0 0 PM [place] SHAHEEDJULIUS Desir INTER[facility]AC ED on July 28, 2025 4:55:00 PM [place] Discayan inued [id number] 7644 7040 701 NORCO 7.5-325 MG TABS 1.0 TAB ORAL ONE TIME ONLY (SCHEDULED DOSE) Start: 2024 4:57:0 0 PM [place] End: 2024 4:57:0 0 PM [facility] on July 28, 2025 4:56:00 PM [facility] SOCIAL HISTORY SOCIAL HISTORY - Smoking Status SNOMED-CT Social History Element Description Effective Dates Offered Cessation Comment Updated By [id number] Current Tobacco smoking status Current Every Day Smoker [email or web address] on July 28, 2025 4:40:41 PM [facility] [id number] Historical Tobacco smoking status Smoker, Current Status Unknown [email or web address] on May 17, 2025 9:32:57 PM [place] [id number] Historical Tobacco smoking status Never Smoked [id number] on May 09, 2025 4:04:17 AM [facility] [id number] Historical Tobacco smoking status Unknown If Ever Smoked [email or web address] on December 17, 2024 12:47:30 AM [facility] SOCIAL HISTORY - Gender Sex: Female SOCIAL HISTORY - Status : status i nformation is not available Intention in Next Year: intention information is not available SOCIAL HISTORY - Assessments Code System Description Status Date Value of Assessment Updated By Comment Assessment Information is no t available SOCIAL HISTORY - False Pass Affiliation False Pass information is not av ailable SOCIAL HISTORY [...] for each vital sign as of July 30, 2025 6:59:52 AM UTC Loinc Code Vital Sign Activity Date Result Updated By 8302-2 Body height July 28 4:43:04 PM UTC 160.02 cm (63.0 in) [id number] on July 28, 2025 4:43:04 PM UTC 78073-5 Body mass index (BMI ) [Ratio] July 28, 2025 4:43:04 PM UTC 41.005 kg/m2 3140-1 Body Surface Area Derived From Formula July 28, 2025 4:43:04 PM UTC 2.0578 m2 54806-2 Body weight Measured July 4:43:04 PM UTC 105.0 kg (231.0 lb) [id number] on July 28, 2025 4:43:04 PM UTC 8462-4 Diastolic blood pressure July 28, 2025 4:42:27 PM UTC 37.0 mm[Hg] 8867-4 Heart rate July 28 5:19:13 PM UTC 86 /min 72701-4 Oxygen saturation in Arterial blood by Pulse oximetry July 28, 2025 4:42:27 PM UTC 99.0 % 9279-1 Respiratory rate July 28 5:19:13 PM UTC 16 /min 8480-6 Systolic blood pressure July 28, 2025 4:42:27 PM UTC 130.0 mm[Hg] PEDIATRIC GROWTH CHART - VITAL SIGNS [...] available. ENCOUNTERS ENCOUNTER INFORMATION Reason for Visit POST OP DENTAL PROCE DURE/ SWELLING/ PAIN Admission July 28, 2025 4:29:[address] [id number] Discharge July 28, 2025 5:22:00 PM [facility] DISCHARGED TO HOME OR SELF CARE ENCOUNTER DIAGNOSES Notes information is not saundra ilable. Code System Diagnosis Onset Date Diagnosis information is not available. ABSTRACT DIAGNOSES Code System Diagnosis Updated By Abatement Date R22.0 ICD10 LOCALIZED SWELLI NG, MASS AND LUMP, HEAD [id number] on July 30, 2025 6:59:23 AM [facility] K08.89 ICD10 OTHER SPECIFIED DISORDERS OF TEETH AND SUPPORTING STRUCTURES [id number] on July 30, 2025 6:59:23 AM [facility] K06.1 ICD10 GINGIVAL ENLARGEMENT [id number] on July 30, 2025 6:59:23 AM [facility] K04.7 ICD10 PERIAPICAL ABSCE SS WITHOUT SINUS [id number] on July 30, 2025 6:59:23 AM [facility] F17.210 ICD10 NICOTINE DEPENDE NCE, CIGARETTES, UNCOMPLICATED [id number] on July 30, 2025 6:59:23 AM [facility] Z88.4 ICD10 ALLERGY STATUS T O ANESTHETIC AGENT [id number] on July 30, 2025 6:59:23 AM [facility] Z88.5 ICD10 ALLERGY STATUS T O NARCOTIC AGENT [id number] on July 30, 2025 6:59:23 AM [facility] Z88.6 ICD10 ALLERGY STATUS T O ANALGESIC AGENT [id number] on July 30, 2025 6:59:23 AM [facility] Z88.8 ICD10 ALLERGY STATUS T O OTHER DRUGS, MEDICAMENTS AND BIOLOGICAL SUBSTANCES [id number] on July 30, 2025 6:59:23 AM [facility] Z79.82 ICD10 SENIOR CARE (CURRE NT) USE OF ASPIRIN [id number] on July 30, 2025 6:59:23 AM [facility] CARE TEAM Care Paint Laboratory Technician Role RENE HUMMEL Admitting DEFINED NO Primary Care RENE HUMMEL Primary Attending DEFINED NO Referring CARE TEAM CARE 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
[2025-07-30 23:50] VITALS: BP 124/93; PULSE 66; RESP 16; TEMP 37.1; O2SAT 99; BMI 38.9
--- NOTE | 2025-07-30 23:53 | ECG_ITS ---
APPROVED REPORT Exam: Resting ECG HR:67 bpm ECG Measurements Heart Rate 67 AXES CA 144 P 33 QRSd 80 QRS 37 QT 395 T 39 QTc 411 Conclusion SINUS RHYTHM NORMAL ECG Electronically signed by : UMAIR CHAVEZ, 07/31/2025 06:57:44
--- NOTE | 2025-07-31 00:06 | HMH.EDGENADL ---
Discharge Plan Disposition Patient Disposition: Left Against Medical Advice Condition: Undetermined Prescriptions Prescriptions: No Action bisoprolol fumarate 5 mg tablet 5 mg PO DAILY Qty: 90 3RF Rx Instructions: TAKE 1 TABLET BY MOUTH ONCE DAILY FOR HYPERTENSION acetaminophen [Tylenol Extra Strength] 500 mg tablet 1,000 mg PO Q6H PRN (Reason: pain) Qty: 90 1RF meloxicam 7.5 mg tablet 7.5 mg PO DAILY Qty: 30 2RF quetiapine 100 mg tablet See Rx Instructions PO DAILY 14 Days Qty: 38 1RF Rx Instructions: Half tablet twice daily for 3 days then 1 tablet twice daily for 3 days then 1 and half tablets twice daily for 3 days then 2 tablets twice daily orally daily; sertraline 25 mg tablet 25 mg PO DAILY Qty: 30 2RF hydroxyzine pamoate [Vistaril] 25 mg capsule 25 mg PO BID PRN (Reason: for sleep or anxiety) 30 Days Qty: 30 1RF amoxicillin 500 mg tablet See Rx Instructions PO BID 10 Days Qty: 20 0RF Rx Instructions: 500 mg PO BID acetaminophen 500 mg capsule 500 mg PO Q6H PRN (Reason: pain) 7 Days Qty: 28 0RF Referrals Follow up/Referrals: Nabil Olsen DO [Primary Care Provider, Family Practice] - See instructions Activity Restrictions/Add. Instructions Additional Instructions/Restrictions: You are leaving the ER AGAINST MEDICAL ADVICE. Please return for work up. Continue taking any prescribed medications as previously directed. Clinical Impressions Clinical Impression: Left against medical advice Print Language Print Language: [place] Discharge ED Provider: Anayeli Saunders General Adult HPI General Chief complaint: Dental/Oral Stated complaint: Possible Abscess Right Upper Jaw line; Migrane Time Seen by Provider: 07/30/25 23:41 Mode of Arrival: Ambulatory Source of Information: Patient Description of Symptoms (Recalled from ER Triage Doc. by RN): Pt presents to ED for possible oral abcess, headache, and neck pain. Pt states she went to [facility] 3 days ago and they prescribed ABX for an oral abcess after extensive dental work. (Teeth extracted) Pt states it is still hurting and she has a migraine. Pt states she has taken 3 doses of ABX bc she missed a day. Pt rates pain as follows 8/10 head, 6/10 neck, and 5/10 oral. Pt is A&O*4 and MD is bedside. History of Present Illness HPI narrative: 30-year-old female presents to the ER with complaints of oral abscess, headache, neck pain. She reports she presented to [facility] 3 days ago and they prescribed antibiotics for an oral abscess. She reports having all of her teeth extracted 4 weeks ago and has had symptoms like this since that time. She states she started taking the antibiotics a day and a half ago and has taken 3 doses total. She states it is amoxicillin?potassium (Augmentin). She reports since taking this medication she has not had any change in her symptoms. She states she has a history of chronic headaches and used to see Dr. Cornejo who gave her this little round pill that used to make me sleepy . She has no numbness, tingling, or weakness, no difficulty breathing or swallowing, is able to completely open the jaw. She has full range of motion of the neck but states the right side under the jaw is sore. She took Tylenol prior to arrival and took 1 hydrocodone earlier today. Denies fevers or chills, no chest pain or difficulty breathing. No nausea, vomiting, or diarrhea. Denies photophobia or posterior neck pain. Related Data Previous Rx's ?Medication ?Instructions ?Recorded acetaminophen 500 mg capsule 500 mg PO Q6H PRN pain 7 days #28 03/15/25 caps hydroxyzine pamoate 25 mg capsule 25 mg PO BID PRN for sleep or 06/06/25 (Vistaril) anxiety 30 days #30 caps quetiapine 100 mg tablet See Rx Instructions PO DAILY 14 06/06/25 days #38 tabs sertraline 25 mg tablet 25 mg PO DAILY #30 tabs 06/06/25 acetaminophen 500 mg tablet 1,000 mg (2 x 500 mg) PO Q6H PRN 06/07/25 (Tylenol Extra Strength) pain #90 tabs bisoprolol fumarate 5 mg tablet 5 mg PO DAILY #90 tabs 06/07/25 meloxicam 7.5 mg tablet 7.5 mg PO DAILY #30 tabs 06/07/25 amoxicillin 500 mg tablet See Rx Instructions PO BID 10 days 06/09/25 #20 tabs Allergies Allergy/AdvReac Type Severity Reaction Status Date / Time ketorolac (From TORADOL) Allergy Mild Hives Verified 06/09/25 09:06 tramadol (TRAMADOL) Allergy Mild Hives Verified 06/09/25 09:06 diphenhydramine (From Allergy Unknown I-HIVES Verified 06/09/25 09:06 BENADRYL) [facility] Disclaimer: The information contained in this section may have been updated after the patient was seen, as this information can be updated by other users. Medical History Dental infection UTI (urinary tract infection) Pain, dental Chronic dental pain Thyromegaly Chronic GERD Globus sensation Kidney stones Patient left without being seen Postoperative pain Otitis media Abdominal pain Foot callus Cellulitis Patient left without being seen Trichomonal vaginitis Postoperative abdominal pain Dysmenorrhea Menorrhagia Right lower quadrant pain Dysfunctional uterine bleeding Flank pain Palpitations SOB (shortness of breath) Concussion without loss of consciousness Microhematuria Acute right flank pain Degenerative joint disease (DJD) of lumbar spine Patient left without being seen Otitis externa Lumbar disc disease Tachycardia Back pain Dyspnea Chest pain Atypical chest pain Ovarian cyst Trichomonal cystitis Abdominal pain of unknown etiology Bilious vomiting Vomiting Closed fracture of tuft of distal phalanx of finger Pelvic pain UTI (urinary tract infection) Renal colic on left side Endometriosis Surgical History Hx of tonsillectomy History of cholecystectomy History of appendectomy H/O hysterectomy with oophorectomy [place] teeth extracted S/P appendectomy S/P hysterectomy Family History Mother Diabetes Hypertension Grandmother Cancer ovarian and breast Father Cancer Hypertension Diabetes Social History Smoking Status: Current every day smoker tobacco type: cigarettes packs per day: 1 alcohol intake: never counseling provided: none substance use type: denies use current occupational status: employed and other Travel in the last 8 weeks?: None household members: spouse housing: house current occupational exposures/hazards: No caffeine: Yes Have you lived/traveled outside US in past 30 days?: No Contact w/someone who lives/traveled outside US past 30 days?: No Exposure to someone with infectious disease in past 14 days?: No Do you have a fever (greater than 100.4 F or 38 C)?: No Have you tested positive for COVID-19?: No Exposed to someone with COVID-19 in past 14 days?: No Do you have a sore throat?: No Do you have a cough?: No Do you have any weakness?: Yes Do you have any diarrhea?: No Are you experiencing any unusual bleeding?: No Do you have any muscle aches/pain?: Yes Do you have any abdominal pain?: No Are you experiencing loss of taste or smell?: No Other Medical History Have you received the Flu Vaccine for this season: No Have you received the Pneumonia Vaccine: No ROS Obtained: Yes Systems reviewed as appropriate & no additional complaints except as documented Per HPI Physical Exam General General appearance: alert, in no apparent distress and obese Head Head exam: atraumatic and normocephalic Eye Eye exam: Present PERRL and EOMI ENT ENT exam: Present mucous membranes moist and other (No facial swelling appreciated, no erythema at the posterior oropharynx, no tonsillomegaly, no exudates) Expanded ENT Exam Mouth exam: Present tongue normal and other (Edentulous, no areas of swelling, erythema, or fluctuance); Absent trismus, tongue elevation or tongue swelling Comment: No sublingual or submandibular swelling or tenderness, no woodiness of the floor of the mouth, no trismus Neck Neck exam: Present normal inspection, full ROM and tenderness (Mild tenderness along the right SCM there is no swelling, erythema, or fluctuance); Absent lymphadenopathy Chest Chest inspection: Present symmetric chest wall rise; Absent tenderness Respiratory Respiratory exam: Present normal lung sounds bilaterally; Absent respiratory distress, wheezes or stridor Cardiovascular Cardiovascular exam: Present regular rate and normal rhythm Abdominal Exam Abdominal exam: Present soft; Absent distention or tenderness Extremities Exam Extremities exam: Present full ROM Neurological Exam Neurological exam: Present alert and oriented X3; Absent motor sensory deficit Psychiatric Psychiatric exam: Present normal affect and normal mood Skin Skin exam: Present warm and dry Medical Decision Making Medical Records Medical records reviewed: Yes I reviewed the patient's medical records. Screening: Per USPSTF and CDC recommendations, given the prevalence of disease in our region, it is our hospital?s policy to screen for HIV and viral Hepatitis for all patients aged 18 and over and those with ongoing risk factors. MR Comment: Patient left AGAINST MEDICAL ADVICE less than a month ago after a fall, left prior to getting any workup. Review of previous records demonstrate concerns for drug-seeking behavior. Aram Inquiry Pt receiving controlled substance: No Vital Signs: 07/30/25 23:50 Temperature 98.7 F Temperature Source Oral Pulse Rate [Left] 66 Respiratory Rate 16 Blood Pressure [Right Arm] 124/93 H Blood Pressure Mean [Right Arm] 103 02 Sat by Pulse Oximetry 99 Oxygen Delivery Method Room Air Orders (Tests/Meds): ED MEDICATIONS Generic Name Dose Route Start Last Admin Trade Name Freq PRN Reason Stop Dose Admin Lactated Ringer's 1,000 mls @ 999 mls/hr 07/30/25 23:48 Lactated Ringer's 1000 Ml Bag IV 07/31/25 00:48 .Q1H1M ONE Discontinued Medications Generic Name Dose Route Start Last Admin Trade Name Freq PRN Reason Stop Dose Admin Droperidol 2.5 mg 07/30/25 23:46 Droperidol 5mg/2ml Vial IV 07/30/25 23:47 ONCE ONE ORDERS Category Date Time Status CT soft tissue neck w con Stat Cat Scan 07/30/25 23:45 Ordered CBC w/Auto Diff [Complete Blood Count Auto Diff] Stat Lab 07/30/25 23:45 Ordered CMP [Comprehensive Metabolic Panel] Stat Lab 07/30/25 23:45 Ordered Medical Decision Narrative: In summary, this 30-year-old female with history of hidradenitis suppurativa, previous nephrolithiasis, recent full mouth dental extraction presents to the emergency department today with right sided dental pain radiating into the neck that she reports has been continuous since her teeth were all removed 3-4 weeks ago and has not gotten better since starting antibiotics a day and a half ago. On initial evaluation patient is hemodynamically stable, afebrile, GCS 15, independently ambulatory into the ER, patient is obese, no facial swelling, no sublingual or submandibular swelling, edentulous oropharynx with moist mucous membranes, no areas of tenderness, swelling, erythema, or fluctuance. Posterior oropharynx unremarkable. No trismus, full range of motion of the neck, mild tenderness along the right sternocleidomastoid with no erythema, fluctuance, or mass. Patent airway, tolerating secretions, no stridor. GCS is 15 with no neurologic deficits despite patient complaining of chronic headache in the setting of history of migraines. Differential diagnosis includes but is not limited to dental infection though patient is already on Augmentin I do not appreciate obvious evidence of intraoral infection, her full mouth dental extraction appears to be healing very well, I considered Jose Luis's angina but patient has no sublingual or submandibular swelling, no woodiness of the floor of the mouth, no trismus, no lymphadenopathy, no fevers. I considered the possibility of abscess or deep space infection but do not appreciate evidence of this clinically and I am reassured against this since patient does not have fever or abnormal vitals. Regarding headache I considered it to be most likely she is having persistent chronic headache associated with her history of migraines, she has no acute change in her headache and no neurologic deficits so I do not suspect intracranial mass or bleed. Based on these concerns, I ordered basic hematologic and serum labs, CT soft tissue neck, droperidol and IV fluids were ordered for headache treatment. ECG ordered prior to droperidol administration per facility policy personally interpreted demonstrates sinus rhythm, rate 67, normal axis, normal MA and QTc, no STEMI. Patient decided prior to having any labs or imaging completed that she wanted to leave. She states she is going to follow-up with her primary care doctor, Dr. Olsen, in the morning. She states she has the only car for her and her and her needs to leave for work at 1. She stated to nurse that she was hoping she could just get some pain meds and go home. She does have a history of drug-seeking behavior but was not being demanding with me or requesting any specific medications. I explained to the patient I would not be administering narcotics but that droperidol was ordered for her headache while we await other results. I explained to her I wanted her to stay for basic labs and CT imaging to rule out deep space infection or any extension of the abscess that was reportedly diagnosed at [facility]. Patient was able to explain back to me her condition and the risks of leaving up to and including wosening of condition, severe life altering disability, or . She was able to provide reason for her decision and clearly express her decision. She has capacity to make this decision and left AGAINST MEDICAL ADVICE. Prior to leaving I instructed her to continue taking her antibiotics and to come back to the ER for workup at any point. She ambulated independently from the ER with airway intact and stable vitals. Critical Care Critical Care Time Critical Care Time: No
[2025-07-31 00:12] VITALS: BP 118/81; PULSE 67; RESP 18; TEMP 36.8; O2SAT 99
== END 2025-07-31 00:14 | disposition left against medical advice (07) ==
PROVIDERS: Emergency Provider Emergency Medicine; PCP Internal Medicine
DX: J39.9 Disease of upper respiratory tract, unspecified (principal); K08.89 Other specified disorders of teeth and supporting structures; Z53.29 Procedure and treatment not carried out because of patient's decision for other reasons
CPT/HCPCS: 93005; 96361; 96374; 99283; 99284

== ENCOUNTER 2025-08-23 17:46 | Emergency (ER) | payer OTHER, SELFPAY ==
[2025-08-23] VITALS (7 sets, daily range): BP systolic 123–132; BP diastolic 79–85; PULSE 64–75; RESP 16–19; TEMP 36.6–36.8; O2SAT 97–100; BMI 40.7
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
--- OUTSIDE RECORDS SUMMARY | 2025-08-23 17:52 | XMS_ITS | Clinical Summary ---
Author Organization [employer] ([place], [place], [place], [place], [place]) Address [address] [place] [address] Care Team Providers Care Edi Analyst Name Role Phone Unavailable Primary Care Provider [...] Date Tashi rded Speak language other than Belizean at home Not on file 02/02/2024 Want [...] Counseling and Screening (12+) 01/2201/23/2024 COVID-19 VACCINE (1 - season) 2025 Influenza Vaccine (#1) 2025
--- OUTSIDE RECORDS SUMMARY | 2025-08-23 17:52 | XMS_ITS | Clinical Summary ---
Author Organization [facility] Address [address] [place] [address] Care Team Providers Care It Professional Name Role Phone Pcp, No Primary Care Provider UnavailAman Lynch MANAGER SALES Unavailable [phone] Allergies Active Allergy Reactions Criticality Noted Date [...] Dental caries, unspecified 01/12/2025 Opioid dependence 08/03/2024 Immunizations Immunization Administration Dates Next Due HPV, [...] 19+ 3-dose series) 2014 [facility]-Pap Smear 2016 [id number] Vaccine (1 - 20 25-26 season) 2025 [facility]-Influenza Vaccine (#1) 2025 [facility]-Cervical [...] patient's age to complete this topic Insurance [employer] [facility] MEDICAID Care Teams It Professional Relationship Specialty Start Date End Date Pcp, Alyson [address] [place] [address] PCP - General Family Medicine 04/07/25 Aman Tapia APRN [address] [place] [address] 04/07/25
--- OUTSIDE RECORDS SUMMARY | 2025-08-23 17:53 | XMS_ITS | Referral Summary ---
Author Organization [employer] ([place], [place], [place], [place], [place]) Address [address] [place] [address] Care Team Providers Care Manager Telemetry Name Role Phone Unavailable Primary Care Provider [...] Date Tashi rded Speak language other than Montenegrin at home Not on file 02/02/2024 Want [...]
--- OUTSIDE RECORDS SUMMARY | 2025-08-23 17:53 | XMS_ITS | Clinical Summary ---
Author Organization [facility] Address [address] [place] [address] Care Team Providers Care Library Acquisitions Technician Name Role Phone Gene Garcia MD Primary Care Provider + Allergies Active Allergy Reactions Criticality Noted Date Comments Diphenhydramine Hcl Hives 08/08/2018 Ketorolac Tromethamine Hives 08/08/2018 Tramadol Hives 08/08/2018 Medications tiZANidine (ZANAFLEX) 4 MG tablet Take 4 mg by mouth At Night As Needed for Muscle Spasms. Active Aspirin Low Dose 81 MG EC tablet Take 81 mg by mouth Daily. Active gabapentin (NEURONTIN) 100 MG capsule TAKE ONE CAPSULE BY MOUTH EVERY 8 HOURS MAY CAUSE DROWSINESS Active HYDROcodone-aceta minophen (NORCO) 5-325 MG per tablet TAKE ONE TABLET BY MOUTH EVERY 8 HOURS NEEDED MAY CAUSE DROWSINESS Active nicotine (NICODERM CQ) 21 MG/24HR patchIndications: Personal history of tobacco use, presenting hazards to health Place 1 patch on the skin as directed by provider Daily. 14 patch 1 021 Active Additional Information Patient not taking.Reported on 08/23/2025 nicotine (NICODERM CQ) 14 MG/24HR patchIndications: Personal history of tobacco use, presenting hazards to health Place 1 patch on the skin as directed by provider Daily. 14 patch 1 021 Active Additional Information Patient not taking.Reported on 08/23/2025 nicotine (NICODERM CQ) 7 MG/24HR patchIndications: Personal history of tobacco use, presenting hazards to health Place 1 patch on the skin as directed by provider Daily. 14 patch 1 021 Active Additional Information Patient not taking.Reported on 08/23/2025 meloxicam (MOBIC) 7.5 MG tablet Active ondansetron ODT (ZOFRAN-ODT) 4 MG disintegrating tablet take 1 tablet oral route every 6-8 hours as needed Active sertraline (Zoloft) 50 MG tabletIndications :Anxiety with depression Take 1 tablet by mouth Daily. 90 tablet 1 025 Active hydrOXYzine pamoate (VISTARIL) 25 MG capsuleIndication s:Anxiety with depression Take 1 capsule by mouth 3 (Three) Times a Day As Needed for Anxiety. 90 capsule 2 025 Active omeprazole (priLOSEC) 40 MG capsuleIndication s:Gastroesophagea l reflux disease, unspecified whether esophagitis present Take 1 capsule by mouth Daily. 90 capsule 1 025 Active bisoprolol (ZEBeta) 5 MG tabletIndications :Essential hypertension Take 1 tablet by mouth Daily. 90 tablet 1 025 Active bisoprolol (ZEBeta) 5 MG tablet 018 2024 Discontinued(R eorder) omeprazole (priLOSEC) 40 MG capsuleIndication s:Gastroesophagea l reflux disease, unspecified whether esophagitis present Take 1 capsule by mouth Daily. 30 capsule 5 021 2024 Discontinued(R eorder) hydrOXYzine pamoate (VISTARIL) 25 MG capsule 025 2024 Discontinued(R eorder) QUEtiapine (SEROquel) 100 MG tablet 025 2024 Discontinued sertraline (ZOLOFT) 25 MG tablet 025 2024 Discontinued Active Problems Problem Noted Date Diagnosed Date Essential hypertension 08/23/2025 Assessment & Plan (08/23/2025 11:52 AM EST): Hypertension is stable and controlled Continue current treatment regimen. Dietary sodium restriction. Weight loss. Regular aerobic exercise. Stop smoking. Blood pressure will be reassessed in 6 months. Anxiety with depression 08/23/2025 Assessment & Plan (08/23/2025 11:53 AM EST): Patient's depression is a recurrent episode that is moderate without psychosis. Depression is active and worsening. Plan: Begin new antidepressant medicine; increase Zoloft dose to 50 mg, continue hydroxyzine as needed Medication/s discontinued today; Seroquel Followup in 6 months. Chronic midline low back pain with right-sided s ciatica 08/23/2025 Assessment & Plan (08/23/2025 11:53 AM EST): Chronic back pain is currently uncontrolled Continue meloxicam daily as prescribed Referral to pain management for further workup and evaluation Sciatica, right side 08/23/2025 Assessment & Plan (08/23/2025 11:54 AM EST): History and physical consistent with sciatica of the right side Referral to physical therapy for management Follow-up if needed Class 3 severe obesity due t o excess calories with serious comorbidity and body mass index (BMI) of 40.0 to 44.9 in adult 08/23/2025 Assessment & Plan (08/23/2025 11:54 AM EST): Patient's (Body mass index is 40.93 kg/m .) indicates that they are morbidly/severely obese (BMI > 40 or > 35 with obesity - related health condition) with health conditions that include hypertension and GERD . Weight is newly identified. BMI is above average; BMI management plan is completed. We discussed portion control and increasing exercise. Generalized fit 10/18/2020 Degenerative disc disease, lumbar 10/18/2020 Personal history of tobacco use, presenting hazards to health 10/18/2020 GERD (gastroesophageal reflux disease) Assessment & Plan (08/23/2025 11:52 AM EST): Well-controlled with current medication regimen Continue omeprazole daily Encounters Date Type Department Care Team Description 08/23/2025 10:45 AM EST Office Visit [facility] [address] [facility] [place] [id number] Po Willett PA-C Essential hypertension (Primary Dx); Anxiety with depression; Gastroesophageal reflux disease, unspecified whether esophagitis present; Chronic midline low back pain with right-sided sciatica; Sciatica, right side; Class 3 severe obesity due to excess calories with serious comorbidity and body mass index (BMI) of 40.0 to 44.9 in adult 08/23/2025 Travel from Last 3 Months Immunizations Immunization Administration Dates Next Due HPV Quadrivalent 04/16/2010 Family History Medical History Relation Name Comments Anxiety disorder Brother Arthritis Father Jackson aMgallanes Diabetes Father Jackson Magallanes Hyperlipidemia Father Jackson Magallanes Hypertension Father Jackson Magallanes Cancer Maternal Aunt Coronary artery disease Mother Geneva Magallanes Depression Mother Geneva Magallanes Heart disease Mother Geneva Magallanes Hyperlipidemia Mother Geneva Magallanes Hypertension Mother Geneva Magallanes Relation Name Status Comments Brother Alive Father Jackson Magallanes Alive Maternal Aunt Mother Geneva Magallanes Alive Social History Tobacco Use Types Packs/Day [...] Mass Index 40.93 08/23/2025 10:44 AM EST Plan of Treatment Upcoming Encounters Date Type Department Care Team (Late st Contact Info) Description 02/21/2026 10:45 AM EDT Office Visit [facility] [address] [facility] [place] [address] Gene Garcia MD [address] [facility] [place] [address] Health Maintenance Due Date Last Done Comments Annual Gynecologic Pelvic an d Breast Exam 1995 Pneumococcal Vaccine 0-49 (1 of 2 - PCV) 2014 TDAP/TD VACCINES (1 - Tdap) 2014 ANNUAL PHYSICAL 08/08/2018 HEPATITIS C SCREENING 08/08/2018 INFLUENZA VACCINE 02/19/2026 Postponed from 04/13/2025 (Patient Refused) Insurance [facility] Care Teams Library Acquisitions Technician Relationship Specialty Start Date End Date Gene Garcia MD [address] [place] [id number] PCP - General Family Medicine 08/06/25
--- OUTSIDE RECORDS SUMMARY | 2025-08-23 17:53 | XMS_ITS | Encounter Summary ---
Author Organization [facility] Address [address] [place] [id number] Care Team Providers Care Acid Tester Name Role Phone Gene Garcia MD Primary Care Provider + Encounter Details Date Type Department Care Team (Latest Contact Info) Description 08/23/2025 Travel Social History Tobacco Use Types Packs/Day [...] documented as of this encounter Functional Status documented as of this encounter Plan of Treatment Upcoming Encounters Date Type Department Care Team (Late st Contact Info) Description 02/21/2026 10:45 AM EDT Office Visit [facility] [address] [place] [id number] Gene Garcia MD [address] [place] [id number] documented as of this encounter Visit Diagnoses Not on filedocumented in this encounter Care Teams Acid Tester Relationship Specialty Start Date End Date Gene Garcia MD [address] [place] [id number] PCP - General Family Medicine 08/06/25 documented as of this encounter
[2025-08-23 17:57] LABS: Microscopic, Urine URINE MICROSCOPIC (MICROSCOPIC)
--- NOTE | 2025-08-23 18:00 | CT_ITS ---
PROCEDURE INFORMATION: Exam: CT Abdomen And Pelvis With Contrast Exam date and time: 08/23/2025 6:39 PM Age: 30 years old Clinical indication: Abdominal pain; Generalized; Additional info: Flank pain, HX stones TECHNIQUE: Imaging protocol: Computed tomography of the abdomen and pelvis with contrast. Radiation optimization: All CT scans at this facility use at least one of these dose optimization techniques: automated exposure control; mA and/or kV adjustment per patient size (includes targeted exams where dose is matched to clinical indication); or iterative reconstruction. Contrast material: ISOVUE; Contrast volume: 75 ml; Contrast route: IV; COMPARISON: CT ABDOMEN PELVIS W CON 05/18/2025 10:31 PM FINDINGS: Lungs: Right middle lobe calcified nodule compatible with prior granulomatous process. Liver: Normal. No mass. Gallbladder and biliary ducts: There are surgical clips within the gallbladder fossa. Pancreas: Normal. No ductal dilation. Spleen: Normal. No splenomegaly. Adrenal glands: Normal. No mass. Kidneys and ureters: No hydronephrosis or hydroureter. Nonobstructive bilateral nephrolithiasis define by multiple bilateral renal calcific densities the largest measuring up to 4.7 mm. Stomach and bowel: See Appendix finding. Appendix: The appendix is not visualized with surgical changes at the cecum suggesting appendectomy. Intraperitoneal space: Unremarkable. No free air. No significant fluid collection. Vasculature: Unremarkable. No abdominal aortic aneurysm. Lymph nodes: Unremarkable. No enlarged lymph nodes. Urinary bladder: Unremarkable as visualized. Reproductive: Bilateral tubal ligation clips located within the pelvis. Bones/joints: Mild loss of intervertebral disc space with degenerative changes involving L5-S1. Soft tissues: Normal. IMPRESSION: Bilateral nonobstructive nephrolithiasis. No hydronephrosis or hydroureter.
[2025-08-23 18:01] LABS: Bilirubin,Urine Negative (Negative); Color,Urine YELLOW (Yellow); Glucose,Urine (UA) Negative (Negative); Ketones,Urine Negative (Negative); Leukocyte Esterase,Urine 2+ (Negative); PH,Urine 6.5 (5.0-8.5); Protein,Urine Negative (Negative); Specific Gravity, Urine 1.020 (1.005-1.030); Urobilinogen,Urine 0.2 EU/dl (0.2)
[2025-08-23 18:14] LABS: Urine Pregnancy, HCG Qual. Negative (Negative)
--- NOTE | 2025-08-23 18:14 | ED_ITS ---
<Statement entered by Tirso Gutierrez DO - 08/23/25 21:50> I was consulted by the JOVANNY, and we discussed the complexity of problems being addressed. I approved the treatment and management plan for this patient's care in the emergency department, thus performing a substantive portion of the medical decision making. Tirso Gutierrez DO This is Dr. Gutierrez. I did independently evaluate this patient as well. The patient tells me that he has a history of numerous kidney stones requiring ureteral stent placement x 4. She tells me that she is having dysuria as well as hematuria and flank pain. On physical examination she did have right-sided CVA tenderness to percussion. No abdominal tenderness to palpation. We proceeded with workup including hematologic labs, urinalysis, and a CT scan of the abdomen pelvis with IV contrast. CT scan was personally turbid by me and demonstrates no evidence of hydronephrosis and no evidence of ureterolithiasis. Official radiology read is in agreement and notes that there is bilateral nonobstructive nephrolithiasis but no evidence of ureterolithiasis, hydronephrosis, or hydroureter. Labs were personally interpreted by me and demonstrated no evidence of leukocytosis, no anemia, no electrolyte derangement or evidence of acute kidney injury. On urinalysis the patient does have 1+ blood, 2+ leukocyte esterase, 20-50 white blood cells, but also 20-50 squamous cells. Additionally, I did speak with the lab directly and they noted that she had trichomonads noted on her urine microscopic exam. The patient tells me that she has not been sexually active for the last 5 years, however my suspicion is that the dysuria that she is experiencing and the leukocyte esterase present in her urine is likely a result of urethritis from trichomonal infection. We did add on gonorrhea, chlamydia, and trichomonas PCR's. We will cover the patient empirically with metronidazole 500 mg twice daily for the next 7 days. We did offer to treat her empirically with ceftriaxone and doxycycline to cover for gonorrhea and chlamydia, however the patient declined. Patient was discharged home in stable condition with instructions to return if she has any new or worsening symptoms Discharge Plan Disposition Patient Disposition: Home, Self-Care Condition: Good Prescriptions Prescriptions: New metronidazole 500 mg tablet 500 mg PO BID 7 Days Qty: 14 0RF No Action bisoprolol fumarate 5 mg tablet 5 mg PO DAILY Qty: 90 3RF Rx Instructions: TAKE 1 TABLET BY MOUTH ONCE DAILY FOR HYPERTENSION meloxicam 7.5 mg tablet 7.5 mg PO DAILY Qty: 30 2RF quetiapine 100 mg tablet See Rx Instructions PO DAILY 14 Days Qty: 38 1RF Rx Instructions: Half tablet twice daily for 3 days then 1 tablet twice daily for 3 days then 1 and half tablets twice daily for 3 days then 2 tablets twice daily orally daily; sertraline 25 mg tablet 25 mg PO DAILY Qty: 30 2RF hydroxyzine pamoate [Vistaril] 25 mg capsule 25 mg PO BID PRN (Reason: for sleep or anxiety) 30 Days Qty: 30 1RF amoxicillin 500 mg tablet See Rx Instructions PO BID 10 Days Qty: 20 0RF Rx Instructions: 500 mg PO BID acetaminophen 500 mg tablet 1,000 mg PO Q6H PRN (Reason: for pain) Qty: 100 1RF acetaminophen 500 mg capsule 500 mg PO Q6H PRN (Reason: pain) 7 Days Qty: 28 0RF Referrals Follow up/Referrals: Gene Garcia MD [Primary Care Provider, Medical] - See instructions Activity Restrictions/Add. Instructions Additional Instructions/Restrictions: Discussed safe sex practice Patient needs to notify any sexual partners Follow-up with PCP Antibiotics as ordered If symptoms worsen or do not improve return Clinical Impressions Clinical Impression: Trichomoniasis Instructions Patient Instructions: DI for Acute Abdominal Pain, DI for Trichomoniasis, Trichomoniasis Print Language Print Language: Norwegian Discharge ED Provider: Tirso Gutierrez Adult HPI General Chief complaint: Abdominal Pain Stated complaint: Pain in lower back, blood in urine Time Seen by Provider: 08/23/25 17:58 Mode of Arrival: Ambulatory Source of Information: Patient Description of Symptoms (Recalled from ER Triage Doc. by RN): pt presents to ED with c/o peeing blood, right kidney pain with lower right sided back pain. pt reports that she feels like she has to pee but cant. pt reports history of kidney stones and stents. pt reports symptoms began yesterday morning. History of Present Illness HPI narrative: 30-year-old female presents for hematuria and right back pain that radiates into the flank that started yesterday. Patient states she has history of kidney stones. Related Data Previous Rx's ?Medication ?Instructions ?Recorded acetaminophen 500 mg capsule 500 mg PO Q6H PRN pain 7 days #28 03/15/25 caps hydroxyzine pamoate 25 mg capsule 25 mg PO BID PRN for sleep or 06/06/25 (Vistaril) anxiety 30 days #30 caps quetiapine 100 mg tablet See Rx Instructions PO DAILY 14 06/06/25 days #38 tabs sertraline 25 mg tablet 25 mg PO DAILY #30 tabs 05/15 01/05 bisoprolol fumarate 5 mg tablet 5 mg PO DAILY #90 tabs 06/07/25 meloxicam 7.5 mg tablet 7.5 mg PO DAILY #30 tabs amoxicillin 500 mg tablet See Rx Instructions PO BID 1 0 days 06/09/25 #20 tabs acetaminophen 500 mg tablet 1,000 mg (2 x 500 mg) PO Q 6H PRN 08/08/25 for pain #100 tabs metronidazole 500 mg tablet 500 mg PO BID 7 days #14 t abs 08/23/25 Allergies Allergy/AdvReac Type Severity Reaction Status Date / Time ketorolac (From TORADOL) Allergy Mild Hives Verified 06/09/25 09:06 tramadol (TRAMADOL) Allergy Mild Hives Verified 06/09/25 09:06 diphenhydramine (From Allergy Unknown I-HIVES Verified 06/09/25 09:06 BENADRYL) [facility] Disclaimer: The information contained in this section may have been updated after the patient was seen, as this information can be updated by other users. Medical History Dental infection UTI (urinary tract infection) Pain, dental Chronic dental pain Thyromegaly Chronic GERD Globus sensation Kidney stones Patient left without being seen Postoperative pain Otitis media Abdominal pain Foot callus Cellulitis Patient left without being seen Trichomonal vaginitis Postoperative abdominal pain Dysmenorrhea Menorrhagia Right lower quadrant pain Dysfunctional uterine bleeding Flank pain Palpitations SOB (shortness of breath) Concussion without loss of consciousness Microhematuria Acute right flank pain Degenerative joint disease (DJD) of lumbar spine Patient left without being seen Otitis externa Lumbar disc disease Tachycardia Back pain Dyspnea Chest pain Atypical chest pain Ovarian cyst Trichomonal cystitis Abdominal pain of unknown etiology Bilious vomiting Vomiting Closed fracture of tuft of distal phalanx of finger Pelvic pain UTI (urinary tract infection) Renal colic on left side Endometriosis Surgical History Hx of tonsillectomy History of cholecystectomy History of appendectomy H/O hysterectomy with oophorectomy [place] teeth extracted S/P appendectomy S/P hysterectomy Family History Mother Diabetes Hypertension Grandmother Cancer ovarian and breast Father Cancer Hypertension Diabetes Social History Smoking Status: Current every day smoker tobacco type: cigarettes packs per day: 1 alcohol intake: never counseling provided: none substance use type: denies use current occupational status: employed and other Travel in the last 8 weeks?: None household members: spouse housing: house current occupational exposures/hazards: No caffeine: Yes Have you lived/traveled outside [place] in past 30 days?: No Contact w/someone who lives/traveled outside US past 30 days?: No Exposure to someone with infectious disease in past 14 days?: No Do you have a fever (greater than 100.4 F or 38 C)?: No Have you tested positive for COVID-19?: No Exposed to someone with COVID-19 in past 14 days?: No Do you have a sore throat?: No Do you have a cough?: No Do you have any weakness?: No Do you have any diarrhea?: No Are you experiencing any unusual bleeding?: No Do you have any muscle aches/pain?: No Do you have any abdominal pain?: No Are you experiencing loss of taste or smell?: No Other Medical History Have you received the Flu Vaccine for this season: No Have you received the Pneumonia Vaccine: No ROS Obtained: Yes Systems reviewed as appropriate & no additional complaints except as documented Genitourinary Female Genitourinary: Reports system reviewed and no additional complaints, except as documented, Reports as per HPI, Reports dysuria, Reports flank pain, Reports pelvic pain and Reports urinary urgency Physical Exam General General appearance: alert and in no apparent distress Eye Eye exam: Present normal appearance and PERRL ENT ENT exam: Present normal exam Respiratory Respiratory exam: Present normal lung sounds bilaterally Cardiovascular Cardiovascular exam: Present regular rate and normal rhythm Neurological Exam Neurological exam: Present alert and oriented X3 Skin Skin exam: Present warm and intact Medical Decision Making Medical Records Medical records reviewed: Yes I reviewed the patient's medical records. Screening: Per USPSTF and CDC recommendations, given the prevalence of disease in our region, it is our hospital?s policy to screen for HIV and viral Hepatitis for all patients aged 18 and over and those with ongoing risk factors. Aram Inquiry Pt receiving controlled substance: No Vital Signs: 08/23/25 17:56 08/23/25 17:57 08/23/25 18:00 Temperature 98.2 F Temperature Source Oral Pulse Rate 75 71 Pulse Rate [Left Radial] 69 Respiratory Rate 19 Blood Pressure 132/85 125/84 Blood Pressure [Right Arm] 125/84 Blood Pressure Mean [Right Arm] 97 02 Sat by Pulse Oximetry 98 98 99 Oxygen Delivery Method Room Air Room Air Room Air 08/23/25 18:15 08/23/25 18:30 Temperature Temperature Source Pulse Rate 68 64 Pulse Rate [Left Radial] Respiratory Rate Blood Pressure 125/84 Blood Pressure [Right Arm] Blood Pressure Mean [Right Arm] 02 Sat by Pulse Oximetry 99 97 Oxygen Delivery Method Lab Data Lab results reviewed: Yes I reviewed the patient's lab results. Lab Results 08/23/25 17:52: Urine Color Yellow, Urine Appearance Sl cloudy, Urine pH 6.5, Ur Specific [place] 1.020, Urine Protein Negative, Urine Glucose (UA) Negative, Urine Ketones Negative, Urine Blood 1+ A, Urine Nitrate Negative, Urine Bilirubin Negative, Urine Urobilinogen 0.2, Ur Leukocyte Esterase 2+ A, Urine RBC 50-100, Urine WBC 20-50, Ur Squamous Epith Cells 20-50, Urine Bacteria 4+, Urine Trichomonas 1+, Urine HCG, Qual Negative 08/23/25 18:04: WBC 7.5, RBC 4.08 L, Hgb 13.1, Hct 40.8, MCV 100.0 H, MCH 32.1 H , MCHC 32.1, RDW 12.1, Plt Count 321, MPV 11.3 H, Neut % (Auto) 46.4, Lymph % (Auto) 42.8, [place] % (Auto) 5.9, Eos % (Auto) 4.3, Baso % (Auto) 0.5, Neut # (Auto) 3.5, Lymph # (Auto) 3.2, [place] # (Auto) 0.4, Eos # (Auto) 0.3, Baso # (Auto) 0.0, Sodium 138, Potassium Not Reportable, Chloride 102, Carbon Dioxide 28, Anion Gap 14.8, BUN 16, Creatinine 0.80, Estimated Creat Clear 169, Estimated GFR 84, Est GFR ( Amer) 102, Glucose 101 H, Calcium 9.0, Total Bilirubin 1.4 H, AST 50 H, ALT 19, Alkaline Phosphatase < 20 L, Total Protein 8.4 H, Albumin 4.8, Globulin 3.6 H, Albumin/Globulin Ratio 1.3 08/23/25 18:04 08/23/25 18:04 Orders (Tests/Meds): ED MEDICATIONS Generic Name Dose Route Start Last Admin Trade Name Freq PRN Reason Stop Dose Admin Morphine Sulfate 4 mg 08/23/25 19:03 08/23/25 19:13 Morphine 4mg/Ml Syringe IV 08/23/25 19:04 Not Given ONCE ONE Sodium Chloride 10 ml 08/23/25 18:38 08/23/25 18:39 Sodium Chloride 0.9% 10ml Syr (Rad Only) IV 09/22/25 18:37 10 ml NEEDED PRN Administration Maintain IV Site Discontinued Medications Generic Name Dose Route Start Last Admin Trade Name Freq PRN Reason Stop Dose Admin Sodium Chloride 1,000 mls @ 999 mls/hr 08/23/25 17:58 08/23/25 18:25 Sod Chlor 0.9% 1000ml Bag IV 08/23/25 18:58 999 mls/hr .Q1H1M ONE Administration Iopamidol 75 ml 08/23/25 18:38 08/23/25 18:39 Iopamidol-370 (76%);100ml Bottle IV 08/23/25 18:39 75 ml ONCE ONE Administration Morphine Sulfate 2 mg 08/23/25 18:03 08/23/25 18:25 Morphine 2mg/Ml Syringe IV 08/23/25 18:04 2 mg ONCE ONE Administration Ondansetron HCl 2 mg 08/23/25 18:03 08/23/25 18:25 Ondansetron 4mg/2ml Vial IV 08/23/25 18:04 2 mg ONCE ONE Administration ORDERS Category Date Time Status CT abdomen pelvis w con Stat Cat Scan 08/23/25 18:00 Completed CBC w/Auto Diff [Complete Blood Count Auto Diff] Stat Lab 08/23/25 18:04 Completed CMP [Comprehensive Metabolic Panel] Stat Lab 08/23/25 18:04 Completed Lipase Stat Lab 08/23/25 19:07 Ordered UA [Urinalysis and Microscopic] Stat Lab 08/23/25 17:52 Completed Urine Chlam/Gono/Trich ([facility]) Stat Lab 08/23/25 17:52 Received Urine , HCG Qual. Stat Lab 08/23/25 17:52 Completed Urine Culture Stat Micro 08/23/25 17:52 Received Radiology Data #1: Image(s): Abdomen Image Reviewed: Yes I have reviewed radiologist's interpretation Preliminary Findings: Normal/NAD Medical Decision Narrative: In summary patient is a 30-year-old female who presents to the emergency department for evaluation of hematuria, right back and flank pain. Patient is hemodynamically stable upon arrival, afebrile. Unremarkable physical exam. Differential diagnosis includes kidney stone, UTI. Initial workup will be conducted with labs, CT, urine. Initial inventions include IV fluids, 2 mg of morphine, Zofran. Initial workup reviewed by me CT negative for kidney stone, urine positive for trichomonas. Upon repeat evaluation spoke with patient regarding CT results and urine. Patient states she is not sexually active, will take treatment for trichomonas while waiting for other panel to be resulted. given this patient appropriate for discharge at this time will discharge with a prescription of Flagyl 500 mg twice a day for 7 days and follow-up with primary care doctor for other results. Critical Care Critical Care Time Critical Care Time: No
[2025-08-23 18:17] LABS: Hematocrit 40.8 % (37.0-47.0); Hemoglobin 13.1 g/dL (12.2-16.2); Immature Granulocytes % 0.1 %; Mean Corpuscular HGB Conc 32.1 g/dL (31.8-35.4); Mean Corpuscular Hemoglobin 32.1 pg (27.0-31.2); Mean Corpuscular Volume 100.0 fl (81-99); Nucleated Red Blood Cells % 0 %; Platelet Count 321 K/mm3 (142-424); Red Blood Count 4.08 M/mm3 (4.20-5.40); Red Cell Distribution Width-SD 44.9 fL; White Blood Count 7.5 K/mm3 (4.8-10.8)
[2025-08-23 18:21] LABS: Bacteria,Urine 4+ /lpf; RBC,Urine 50-100 #/hpf (0-3); Squamous Epithelial Cell,Urine 20-50 #/hpf (0-5); WBC,Urine 20-50 #/hpf (0-3)
[2025-08-23 18:22] LABS: Trichomonas,Urine 1+ /lpf
[2025-08-23] MEDS: ONDANSETRON 4MG/2ML VIAL 2 MG IV (18:25)
[2025-08-23] MEDS: MORPHINE 2MG/ML SYRINGE 2 MG IV (18:25)
[2025-08-23] MEDS: 0.9 % SODIUM CHLORIDE 1000ML 1,000 ML 999 ML IV (18:25)
[2025-08-23 18:27] LABS: Albumin Level 4.8 g/dl (3.5-5.0); Chloride 102 mmol/L (98-107); Sodium 138 mmol/L (136-145)
[2025-08-23 18:30] LABS: Alanine Aminotransferase 19 U/L (12-78); Blood Urea Nitrogen 16 mg/dl (7-17); Calcium 9.0 mg/dl (8.4-10.2); Carbon Dioxide 28 mmol/L (22.0-30.0); Creatinine Clearance Estimated 169 mL/min (50-200); Creatinine,Serum 0.80 mg/dl (0.52-1.04); Estimated Glomerular Filt Rate 84 ml/min (>60); GFR (African American) 102 ML/MIN (>60)
[2025-08-23] MEDS: IOPAMIDOL-370 (76%);100ML BOTTLE 75 ML IV (18:39)
[2025-08-23] MEDS: SODIUM CHLORIDE 0.9% 10ML SYR (RAD ONLY) 10 ML IV (18:39)
--- NOTE | 2025-08-23 18:39 | PC.NURSE ---
lab called to say that pts K was reading off due to blood being hemolyzed. attempted to redraw green tube for lab, unsuccessful draw. call made to lab to assist in recollect
[2025-08-23 19:14] LABS: Anion Gap 12.6 mEq/L (5-15)
[2025-08-23 19:17] LABS: Lipase 60 U/L (23-300)
[2025-08-23 19:17] LABS: Alkaline Phosphatase 62 U/L (38-126)
[2025-08-23 19:18] LABS: Bilirubin,Total 0.2 mg/dl (0.2-1.3)
[2025-08-23 19:20] LABS: Albumin/Globulin Ratio 2.2 (1.1-1.8); Aspartate Amino Transferase 23 U/L (14-36); Globulin 2.2 g/dL (1.3-3.2); Total Protein,Serum 7.0 g/dl (6.3-8.2)
[2025-08-23 19:22] LABS: Glucose 76 mg/dl (74-100)
[2025-08-23 19:25] LABS: Potassium 4.6 mmoL/L (3.5-5.1)
--- NOTE | 2025-08-23 19:27 | PC.NURSE ---
Notified provider of corrected potassium
== END 2025-08-23 19:34 | disposition home or self-care (01) ==
PROVIDERS: Nurse Practitioner Family; Emergency Provider Student in an Organized Health Care Education/Training Program; PCP Family Medicine
DX: R10.A1 Flank pain, right side (principal); R31.9 Hematuria, unspecified; R30.0 Dysuria; A59.9 Trichomoniasis, unspecified; M54.50 Low back pain, unspecified; N20.0 Calculus of kidney; F17.210 Nicotine dependence, cigarettes, uncomplicated
CPT/HCPCS: 74177; 80053; 81001; 81025; 83690; 85025; 87086; 87491; 87591; 87661; 96361; 96374; 96375; 99285; J2270; J2405; J7030; Q9967